=== PATIENT | male | born 1945 | race Caucasian/White ===

== ENCOUNTER → 2017-09-15 16:33 | Outpatient (CLI) | payer MEDICARE, OTHER, SELFPAY ==
[2017-09-15 19:13] LABS: M R Staph aureus DNA By PCR Negative (Negative); Probe Check PASS; Specimen Processing Control PASS; Staph aureus DNA By PCR NEGATIVE (Negative)
== END ==
PROVIDERS: Family Provider Family Medicine Geriatric Medicine; PCP Family Medicine Geriatric Medicine; Visit Provider Family Medicine Geriatric Medicine
DX: A41.02 Sepsis due to Methicillin resistant Staphylococcus aureus (principal)
CPT/HCPCS: 87070; 87077; 87186; 87205; 87640

== ENCOUNTER → 2017-10-02 15:47 | Outpatient (CLI) | payer MEDICARE, OTHER, SELFPAY ==
--- NOTE | 2017-10-02 16:36 | CT_ITS ---
STUDY: CT ABDOMEN AND PELVIS WITH CONTRAST REASON FOR EXAM: Male, 72 years old. Upper abdominal pain. RADIATION DOSAGE (If Supplied By Facility): CTDIvol = ( 8.26 ) mGy, DLP = ( 617.80 ) mGycm TECHNIQUE: Transaxial images were obtained from the dome of the diaphragm to the symphysis pubis with oral contrast. 100ML ml of Isovue 300 contrast was administered. Sagittal and coronal images were reconstructed. Individualized dose optimization techniques were used for this CT. COMPARISON: 07/29/2006. FINDINGS: The visualized lung bases are unremarkable. The visualized portions of the heart are within normal limits. Normal liver. Normal gallbladder and extrahepatic biliary system. Normal spleen. Normal pancreas. Normal bilateral adrenal glands. Normal right kidney. Normal left kidney. Normal visualized stomach. Normal small intestine. Marked fecal retention throughout the colon. The appendix is visualized and appears normal. There is a 4.3 cm infrarenal abdominal aortic aneurysm. There are calcified tortuous and ectatic common iliac arteries. Normal inferior vena cava. Normal retroperitoneum. Evaluation of the pelvis is limited by metal artifact from right hip arthroplasty. Bladder has a normal contour. There appears to be a 1.9 cm hemispheric soft tissue mass along the right lateral wall. See axial image 83. This was not definitely present previously. Cystoscopy recommended. Normal abdominal wall. Normal osseous structures. CT/Abdomen/Pelvis WITH Contrast IMPRESSION: 4.3 cm infrarenal abdominal aortic aneurysm. Possible 1.9 cm soft tissue mass along the right lateral wall of the bladder. Cystoscopy recommended. Electronically Signed: Noah Cole MD at 20:13 EDT , Service support ,
[2017-10-02 16:37] LABS: Absolute Neutrophil Count 2.4 X10^3/uL (2.0-7.7); Basophil# 0.04 X10^3/uL; Basophil% 0.9 % (0-1); Eosinophil# 0.07 X10^3/uL; Eosinophils% 1.6 % (0-5); Hematocrit 38.9 % (40-54); Hemoglobin 13.3 g/dl (13.0-16.5); Mean Corp Hgb Conc 34.2 g/gl (32-36); Mean Corpuscular Volume 93.7 fL (80-94); Mean Platelet Vol. 9.2 fl (6.2-12.0); Monocyte% 11.5 % (0-10); Neutrophil # 2.41 X10^3/uL (2.7-7.7); Neutrophil % 55.8 % (47-70); Platelet Count 256 K/mm3 (150-450); RBC Distribution Width CV 12.4 % (11.6-14.6); RBC Distribution Width SD 41.4 fl (35.1-43.9); Red Blood Count 4.15 M/mm3 (4.6-6.2); White Blood Count 4.3 K/mm3 (4.4-11.0)
[2017-10-02 16:57] LABS: AST(SGOT) 17 U/L (15-37); Alanine Aminotransfer ALT/SGPT 21 U/L (16-61); Albumin, Serum 3.6 g/dL (3.2-5.0); Alkaline Phosphatase 90 U/L (45-117); Amylase 61 U/L (25-115); Anion Gap 6 (5-15); BUN 18 mg/dL (7-18); BUN/Creat Ratio 24.7 RATIO (10-20); Calcium,Total 9.3 mg/dL (8.5-10.1); Chloride 105 mmol/L (98-107); Creatinine, Serum 0.73 mg/dL (0.70-1.30); EST Glomerular Filtration Rate 112 mL/min (>60); Est Glom Filt Rate - Afr Amer 135 mL/min (>60); Globulin 3.5 g/dL (2.2-4.2); Glucose 64 mg/dL (74-106); Lipase 111 U/L (73-393); Protein, Total 7.1 g/dL (6.4-8.2); Sodium Level 139 mmol/L (136-145)
[2017-10-02 16:58] LABS: POSITIVE COUNT NO; POSITIVE DIFFERENTIAL NO; POSITIVE MORPHOLOGY NO
--- NOTE | 2017-10-02 17:19 | US_ITS ---
STUDY: ABDOMINAL ULTRASOUND - RIGHT UPPER QUADRANT REASON FOR VISIT: Male, 72 years old. Abdominal pain TECHNIQUE: Ultrasound evaluation of the right upper quadrant was performed with real-time and static cote-scale imaging. TECHNICAL QUALITY: Adequate. COMPARISON: 02/15/2011. FINDINGS: Liver: The liver measures 14.4 cm. There is normal echogenicity of the liver. The bile ducts are within normal limits. There is hepatic color flow. The direction of portal flow is hepatopetal. There is no demonstrated mass lesion. Gallbladder: Normal distended gallbladder. The gallbladder wall measures 2 mm. There is a negative sonographic Fitch's sign. There is no pericholecystic fluid. There are no gallstones. There is a small 3 mm polyp. Common Bile Duct (C.B.D.): The common bile duct measures 6 mm. Pancreas: Normal size of the head, body and tail of the pancreas. There is normal echogenicity of the pancreas. There is no demonstrated pancreatic mass or cyst. Right Kidney: Normal size of the right kidney. The right kidney measures 9.2 cm. Normal renal cortex. The right cortex measures 1.4 cm. There is no demonstrated renal mass or cyst. There is no right hydronephrosis. US/Abdomen Limited IMPRESSION: Small gallbladder polyp, stable since 2010. No other abnormalities. Electronically Signed: Noah Cole MD at 19:12 EDT , Service support ,
== END ==
PROVIDERS: Family Provider Family Medicine Geriatric Medicine; PCP Family Medicine Geriatric Medicine; Visit Provider Family Medicine Geriatric Medicine
DX: K82.4 Cholesterolosis of gallbladder (principal); I71.4 Abdominal aortic aneurysm, without rupture
CPT/HCPCS: 36415; 74177; 76705; 80053; 82150; 83690; 85025; Q9967; A4216

== ENCOUNTER → 2017-10-30 15:40 | Outpatient (CLI) | payer MEDICARE, OTHER, SELFPAY ==
[2017-10-30 16:57] LABS: PSA,Total- Diagnostic 0.24 ng/mL (0.0-4.0)
== END ==
PROVIDERS: Family Provider Family Medicine Geriatric Medicine; PCP Family Medicine Geriatric Medicine; Visit Provider Urology
DX: N40.2 Nodular prostate without lower urinary tract symptoms (principal)
CPT/HCPCS: 36415; 84153

== ENCOUNTER → 2017-12-01 10:05 | Outpatient (CLI) | payer MEDICARE, OTHER, SELFPAY ==
[2017-12-01 12:44] LABS: Absolute Lymphocyte Count 1.03 X10^3/ul (0.83-4.51); Absolute Neutrophil Count 2.5 X10^3/uL (2.0-7.7); Basophil# 0.06 X10^3/uL; Basophil% 1.4 % (0-1); Eosinophil# 0.07 X10^3/uL; Eosinophils% 1.7 % (0-5); Hematocrit 40.6 % (40-54); Hemoglobin 13.8 g/dl (13.0-16.5); Lymphocyte # 1.03 X10^3/ul (4.0); Lymphocyte % 24.5 % (19-41); Mean Corpuscular Hgb 32.1 pg (27.0-32.0); Mean Corpuscular Volume 94.4 fL (80-94); Mean Platelet Vol. 9.4 fl (6.2-12.0); Monocyte# 0.51 X10^3/uL; Monocyte% 12.1 % (0-10); Neutrophil # 2.53 X10^3/uL (2.7-7.7); Neutrophil % 60.3 % (47-70); Platelet Count 266 K/mm3 (150-450); RBC Distribution Width CV 12.8 % (11.6-14.6); RBC Distribution Width SD 43.2 fl (35.1-43.9); White Blood Count 4.2 K/mm3 (4.4-11.0)
[2017-12-01 12:51] LABS: AST(SGOT) 23 U/L (15-37); Alanine Aminotransfer ALT/SGPT 26 U/L (16-61); Albumin, Serum 3.6 g/dL (3.2-5.0); Alkaline Phosphatase 88 U/L (45-117); Anion Gap 7 (5-15); BUN 12 mg/dL (7-18); BUN/Creat Ratio 16.4 RATIO (10-20); Calcium,Total 8.6 mg/dL (8.5-10.1); Chloride 100 mmol/L (98-107); Creatinine, Serum 0.73 mg/dL (0.70-1.30); EST Glomerular Filtration Rate 111 mL/min (>60); Est Glom Filt Rate - Afr Amer 135 mL/min (>60); Globulin 3.5 g/dL (2.2-4.2); Glucose 86 mg/dL (74-106); Potassium 4.6 mmol/L (3.5-5.1); Protein, Total 7.1 g/dL (6.4-8.2); Sodium Level 136 mmol/L (136-145); Thyroid Stim Hormone (TSH) 1.24 uIU/mL (0.358-3.74); Vitamin D,25 Hydroxy 26.9 ng/mL (29.95-100.01)
[2017-12-01 12:53] LABS: POSITIVE COUNT NO; POSITIVE DIFFERENTIAL NO; POSITIVE MORPHOLOGY NO
== END ==
PROVIDERS: Family Provider Family Medicine Geriatric Medicine; PCP Family Medicine Geriatric Medicine; Visit Provider Family Medicine Geriatric Medicine
DX: E55.9 Vitamin D deficiency, unspecified (principal); I10 Essential (primary) hypertension
CPT/HCPCS: 36415; 80053; 82306; 84443; 85025

== ENCOUNTER → 2017-12-12 16:33 | Outpatient (CLI) | payer MEDICARE, OTHER, SELFPAY ==
--- NOTE | 2017-12-12 16:35 | CT_ITS ---
STUDY: CTA CHEST REASON FOR EXAM: Male, 72 years old. ASCENDING ABDOMINAL AORTIC ANEURYSM RADIATION DOSAGE (If Supplied By Facility): CTDIvol = ( 13.41 ) mGy, DLP = ( 375.75 ) mGycm TECHNIQUE: The examination was performed with the intravenous administration of 100 ml of Isovue 300 contrast material. Post-processing of the angiographic images was performed, with multiplanar reformation and 3D reconstruction. Individualized dose optimization techniques were used for this CT. COMPARISON: 17 FINDINGS: There is no pneumothorax. The lungs are normal. There is no demonstrated pleural abnormality. There are calcifications of the coronary arteries. 46 cm aneurysmal dilation of the ascending thoracic aorta. Normal mediastinum. Normal hilar regions. Normal pulmonary arteries. There is atherosclerotic calcification of the aortic arch with tortuosity and elongation of the aortic arch and descending thoracic aorta. There are multi-level degenerative changes of the thoracic spine. There is no demonstrated abnormality of the visualized upper abdomen. CT/CTA Chest W/WO Contrast IMPRESSION: 46 cm aneurysmal dilation of the ascending thoracic aorta. No demonstrated pulmonary embolism or arterial dissection. Electronically Signed: Ezra Brush MD at 23:37 EDT , Service support ,
== END ==
PROVIDERS: Family Provider Family Medicine Geriatric Medicine; PCP Family Medicine Geriatric Medicine; Visit Provider Family Medicine Geriatric Medicine
DX: I71.4 Abdominal aortic aneurysm, without rupture (principal)
CPT/HCPCS: 71275; Q9967

== ENCOUNTER 2018-08-30 16:38 | Observation (INO) | payer MEDICARE, OTHER, SELFPAY ==
[2018-08-30] VITALS (9 sets, daily range): BP systolic 101–141; BP diastolic 57–74; PULSE 52–72; RESP 14–18; TEMP 36.6–36.9; O2SAT 94–99; BMI 23.3; BMI 23.5
--- NOTE | 2018-08-30 17:10 | EKG12_ITS ---
Test Reason : CP Blood Pressure : / mmHG Vent. Rate : 059 BPM Atrial Rate : 059 BPM P-R Int : 152 ms QRS Dur : 096 ms QT Int : 430 ms P-R-T Axes : 064 -41 060 degrees QTc Int : 425 ms Sinus bradycardia Left axis deviation Low Voltage QRS (Limb Leads) Poor R-Wave Progression Abnormal ECG Confirmed by TOY WILDER, VOLODYMYR ([id number]), web content editor KEL TEE ([id number]) on 09/02/2018 1:42:33 PM Referred By: Barak Troncoso Confirmed By:VOLODYMYR YEAGER MD
--- NOTE | 2018-08-30 17:10 | CT_ITS ---
STUDY: CTA CHEST REASON FOR EXAM: Male, 73 years old. Chest pain RADIATION DOSAGE (If Supplied By Facility): CTDIvol = ( 9.27 ) mGy, DLP = ( 282.58 ) mGycm TECHNIQUE: The examination was performed with the intravenous administration of Isovue 370 100 IV. Post-processing of the angiographic images was performed, with multiplanar reformation and 3D reconstruction. Individualized dose optimization techniques were used for this CT. COMPARISON: CTA 12/12/2017 FINDINGS: Normal enhancement of the main pulmonary artery and right and left pulmonary arteries. Normal enhancement of the bilateral peripheral pulmonary arteries. There is no demonstrated pulmonary embolism. There is stable mild aneurysmal dilatation ascending thoracic aorta maximum AP diameter 4.6 cm maximum mediolateral diameter 4.6 cm There is no demonstrated aortic dissection. Normal heart and pericardium. Normal mediastinum. Normal hilar regions. Normal visualized trachea and bronchi. The lungs are well expanded. There is right lower lobe groundglass opacity. Normal pleura. Normal chest wall structures. Normal osseous structures. The prior infrarenal abdominal aortic aneurysm is incompletely included on the [id number]. There is aneurysmal dilatation of the right axillary, distal subclavian artery incompletely included on [id number] with atherosclerotic narrowing which be further evaluated with ultrasound. The aneurysm measures 1.8 cm in mediolateral diameter CT/CTA Chest W/WO Contrast IMPRESSION: No CTA evidence for pulmonary emboli or aortic dissection Distal arterial right subclavian, axillary aneurysm, and atherosclerotic narrowing which can be further evaluated with ultrasound Right lower lobe groundglass opacity likely infectious/inflammatory stable mild aneurysmal dilatation ascending thoracic aorta maximum AP diameter 4.6 cm maximum mediolateral diameter 4.6 cm Infrarenal abdominal aortic aneurysm incompletely included on the field of view which should be further evaluated for stability with ultrasound or CT Electronically Signed: Arcenio Shen, at 20:39 EDT Tel , Service support ,
--- NOTE | 2018-08-30 17:15 | RAD_ITS ---
STUDY: X-RAY CHEST REASON FOR EXAM: Male, 73 years old. Chest pain, nausea short of breath TECHNIQUE: Portable chest COMPARISON: 12/10/2014. FINDINGS: The lungs are clear and expanded. There is no demonstrated pleural abnormality. Normal size heart. Normal mediastinum and alfredo. Normal visualized pulmonary arteries. Normal visualized aortic arch and descending thoracic aorta. Normal visualized thoracic spine. Normal visualized ribs, clavicles, and shoulders. There is no demonstrated abnormality of the visualized soft tissue structures of the upper abdomen. RAD/Chest 1 View (Portable) IMPRESSION: Normal x-ray examination of the chest. Electronically Signed: Arcenio Shen, at 19:22 EDT Tel , Service support ,
[2018-08-30] MEDS: Morphine 4 MG/ML Syringe IV (17:16)
[2018-08-30] MEDS: Ondansetron 4 MG/2 ML Vial IV (17:16)
[2018-08-30] MEDS: 0.9% Normal Saline 1,000 ML 150 ML IV ×2 (17:16→22:46)
[2018-08-30] MEDS: Albuterol 2.5 MG/3 ML VIAL.NEB. INHALATION (17:19)
[2018-08-30 17:22] LABS: Absolute Lymphocyte Count 1.67 X10^3/ul (0.83-4.51); Absolute Neutrophil Count 2.9 X10^3/uL (2.0-7.7); Basophil# 0.06 X10^3/uL; Basophil% 1.2 % (0-1); Eosinophil# 0.11 X10^3/uL; Eosinophils% 2.1 % (0-5); Hematocrit 38.9 % (40-54); Hemoglobin 13.1 g/dl (13.0-16.5); Lymphocyte # 1.67 X10^3/ul (4.0); Lymphocyte % 32.4 % (19-41); Mean Corp Hgb Conc 33.7 g/gl (32-36); Mean Corpuscular Hgb 31.5 pg (27.0-32.0); Mean Corpuscular Volume 93.5 fL (80-94); Mean Platelet Vol. 9.2 fl (6.2-12.0); Monocyte# 0.42 X10^3/uL; Monocyte% 8.1 % (0-10); Neutrophil # 2.89 X10^3/uL (2.7-7.7); Platelet Count 225 K/mm3 (150-450); RBC Distribution Width CV 13.4 % (11.6-14.6); RBC Distribution Width SD 45.8 fl (35.1-43.9); Red Blood Count 4.16 M/mm3 (4.6-6.2); White Blood Count 5.2 K/mm3 (4.4-11.0)
[2018-08-30 17:30] LABS: POSITIVE COUNT NO; POSITIVE DIFFERENTIAL NO; POSITIVE MORPHOLOGY NO
[2018-08-30 17:37] LABS: Anion Gap 7 (5-15); BUN 22 mg/dL (7-18); BUN/Creat Ratio 29.6 RATIO (10-20); Calcium,Total 8.9 mg/dL (8.5-10.1); Chloride 104 mmol/L (98-107); Creatinine, Serum 0.74 mg/dL (0.70-1.30); EST Glomerular Filtration Rate 109 mL/min (>60); Est Glom Filt Rate - Afr Amer 132 mL/min (>60); Estimated Creatinine Clearance 60.59 ml/min; Glucose 88 mg/dL (74-106); Sodium Level 139 mmol/L (136-145)
--- NOTE | 2018-08-30 20:57 | ED.DCSUM_ITS ---
- ER Visit Summary Date of Service: 08/30/18 Chief Complaint: Chest pain History of Present Illness: The patient is a 73 M with a 1 hour history of chest pain. Patient states the pain started as he was climbing the basement steps. He describes an aching sensation in the midportion of his chest. He waited for approximately 20 minutes and then called family when the pain did not subside. He denies shortness of breath or diaphoresis. Past history is significant for COPD, hypertension, AAA, Wernicke-Korsakoff. Physical Examination: Vital signs are unremarkable. Patient sitting upright in bed no acute distress. Head neck examination is unremarkable. It is slightly bradycardic. Lungs sounds are with slight wheezes at the left base. Abdomen is soft and nontender. Test Results: EKG is sinus at 59 with no acute ischemia. CBC and chemistry studies normal. Troponin less than 0.015. Portable chest x-ray is unremarkable. CTA of the chest was obtained secondary to the patient's history of AAA. There is no PE or dissection. There is evidence of right lower lobe groundglass opacity which may be infectious or inflammatory. There is a stable mild aneurysmal dilatation of the ascending thoracic aorta. There is an infrarenal aortic aneurysm noted just off the lower portion of the images. Emergency Department Course and Treatment: Patient was given 1 nitro with squad with no change. He does have an allergy to aspirin where he describes his eyes swelling shut. He is given albuterol treatment here along with a dose of IV morphine. On repeat evaluation pain is improved. Patient symptoms are certainly concerning. I recommended hospitalization overnight for cycling of enzymes. Hospitalist is on page. Treatment Plan: [] Disposition: Admit Impression: Chest pain This note was generated with [employer] dictation software. It may contain incorrect words, spelling, and punctuation that were not noted in review of the chart prior to signing ED Disposition - Plan for ED Patient: Referrals: Gardenia Braun MD [Primary Care Provider] -
--- NOTE | 2018-08-30 21:46 | EKG12_ITS ---
Test Reason : CP ADMIT Blood Pressure : / mmHG Vent. Rate : 052 BPM Atrial Rate : 052 BPM P-R Int : 150 ms QRS Dur : 094 ms QT Int : 452 ms P-R-T Axes : 044 -24 035 degrees QTc Int : 420 ms Sinus bradycardia with Premature atrial complexes with Aberrant conduction Otherwise normal ECG When compared with ECG of 30-AUG-2018 16:57, MANUAL COMPARISON REQUIRED, DATA IS UNCONFIRMED Confirmed by MARILUZ WILDER, EDWIN ([id number]), editor in chief newspaper KEL TEE ([id number]) on 09/01/2018 1:10:39 PM Referred By: Barak Troncoso Confirmed By:EDWIN MCGRAW MD
--- NOTE | 2018-08-30 22:38 | HP.PCM_ITS ---
Problem List (1) Chest pain Status: Acute (2) AAA (abdominal aortic aneurysm) without rupture Status: Chronic (3) COPD (chronic obstructive pulmonary disease) Status: Chronic (4) HTN (hypertension) Status: Chronic (5) Major depression Status: Chronic History of Present Illness Date of Admission: 08/30/18 Chief Complaint: chest pain The patient is a 73 year old M with a previous history of alcoholism; tobacco abuse; hypertension; COPD; aortic aneurysm who had excruciating substernal sharp chest pain while walking down his stairs. His chest pain persisted for about 8- 10 minutes for which reason he came to the emergency department. His chest pain radiated to in between his shoulder blades. Patient is allergic to aspirin. He has swelling of the eyes with aspirin. Patient received sublingual nitro by the paramedics which helped improved his pain. Also he received morphine at the emergency department which helped improve his pain. Patient denied any aggravating factor. He denied diaphoresis, nausea or vomiting. Also he denies any shortness of breath with the chest pain. 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, mood swings, lack of insight ataxia of gait confabulation Major depression (Chronic) Alcoholism (Chronic) Allergies aspirin Allergy (Verified 08/30/18 16:42) Swelling latex Allergy (Verified 08/30/18 16:42) Rash Home Medications: Ambulatory Orders Medication Instructions Recorded buPROPion XL [Wellbutrin Xl] 150 mg PO DAILY 11/25/14 Nifedipine [Nifedipine ER] 60 mg PO DAILY #30 tablet.er 11/29/14 Ramipril [Altace] 20 mg PO DAILY #30 capsule 11/29/14 Thiamine Hydrochloride [Vitamin B1] 100 mg PO DAILY #30 tablet 11/29/14 Albuterol IH (ProAir) [Proair Hfa] 2 puff INHALATION PRN PRN 08/30/18 Budesonide Inhaler 90 mcg 1 puff INHALATION BID 08/30/18 [Pulmicort Flexhaler 90 mcg] Citalopram [Celexa] 20 mg PO DAILY 08/30/18 Folic Acid 1 mg PO DAILY 08/30/18 Multivitamin,Therapeutic [Therems] 1 tab PO DAILY 08/30/18 Pravastatin Sodium 40 mg PO QHS 08/30/18 Ranitidine [Zantac] 150 mg PO BID 08/30/18 Surgical History: total hip arthroplasty - R, - - L olecranon bursa Lives: Spouse/ Significant Other Smoking Status: Current every day smoker Tobacco Use: Cigarettes Alcohol: Sober - *Family History Maternal History Items: Dementia, Stroke Paternal History Items: COPD Review of Systems Constitutional: Denies: Chills, Fever, Weight Change HEENT: Denies: Head Aches, Sinus Congestion, Sinus Drainage Cardiovascular: Reports: Chest Pain. Denies: Palpitations Respiratory: Denies: Cough, Shortness of breath at rest, Sputum production Gastrointestinal: Denies: Abdominal Pain, Nausea, Vomiting Genitourinary: Denies: Dysuria Musculoskeletal: Reports: Back Pain. Denies: Joint Pain, Joint Tenderness Skin: Denies: Rash, Wounds Neurological: Denies: Numbness, Tingling, Focal weakness Psychiatric: Denies: Anxiety, Depression, Homicidal Ideations, Suicidal Ideations Hematologic/ Lymphatic: Denies: Easy Bruising, Easy Bleeding VTE Information - Inpt Only VTE Present on Admission: No VTE Mechan Device Prophylaxis: None VTE Pharm Prophylaxis ordered?: Yes Patient Problems: Active and Suspected Problems Chest pain (Acute) - Physical Exam General: Alert, Oriented x3, Cooperative HEENT: Atraumatic, PERRLA, EOMI, Normocephalic Neck: Supple, No JVD, Negative Carotid Bruits Lungs: Clear to auscultation, Normal air movement Cardiovascular: Regular rate, No murmurs Abdomen: Bowel Sounds Present, Soft, Non Tender Extremities: No edema, Capillary Refill Less than 3 Seconds Skin: No rashes, No breakdown Musculoskeletal: No Tenderness to Palpation of Joints or Extremities Neurological: Neuro grossly intact Psych/Mental Status: Normal Affect, Appropriate Vital Signs Temp Pulse Resp BP Pulse Ox 97.8 F 72 18 141/64 H 96 08/30/18 22:13 08/30/18 22:13 08/30/18 22:13 08/30/18 22:13 08/30/18 22:13 Oxygen Delivery Method Room Air Weight: 67.1 kg Body Mass Index (BMI) 23.5 Laboratory Tests Past 24 Hrs 08/30/18 08/30/18 08/30/18 16:45 16:45 22:00 WBC 5.2 RBC 4.16 L Hgb 13.1 Hct 38.9 L MCV 93.5 MCH 31.5 MCHC 33.7 RDW 13.4 RDW Differential 45.8 H Plt Count 225 MPV 9.2 Immature Gran % (Auto) 0.200 Neut % (Auto) 56.0 Lymph % (Auto) 32.4 [place] % (Auto) 8.1 Eos % (Auto) 2.1 Baso % (Auto) 1.2 H Absolute Neuts (auto) 2.9 Absolute Lymphs (auto) 1.67 Total Counted Not Reportable Sodium 139 Potassium 4.0 Chloride 104 Carbon Dioxide 28.0 Anion Gap 7 BUN 22 H Creatinine 0.74 Estim Creat Clear Calc 60.59 Est GFR (MDRD) Af Amer 132 Est GFR (MDRD) Non-Af 109 BUN/Creatinine Ratio 29.6 H Glucose 88 Calcium 8.9 Troponin I < 0.015 Pending Assessment/Plan All Active Problems Chest pain (Acute) The patient is a 73 year old M with a previous history of alcoholism; tobacco abuse; hypertension; COPD; aortic aneurysm who had excruciating substernal sharp chest pain while walking down his stairs. Chest pain Admit to a monitored bed on PCU CXR independently reviewed confirms hyperinflation without any acute cardiopulmonary process. EKG independently reviewed confirms sinus bradycardia with a rate of 59; and left axis deviation. There were no ST or T wave of normalities. Chest CTA with or without contrast showed no evidence of pulmonary embolism or aortic disease. Patient had mild aneurysmal dilatation of the ascending thoracic aorta with maximum AP diameter of 4.6 maximum mediolateral diameter 4.6 cm. Also patient had infrarenal renal abdominal aortic aneurysm. Patient is allergic to aspirin so we will not give any aspirin at this time. Morphine as needed for pain We will check lipid panel. Initial cardiac enzymes was unremarkable. Serial cardiac enzymes Stat EKG as needed for chest pain Chemical stress test in the AM if the cardiac enzymes are negative. Patient reported that because of his age he has some imbalance and is unsure whether he can around the treadmill. Ascending thoracic aortic aneurysm. Patient to follow-up longitudinally outpatient. Infrarenal abdominal aortic aneurysm Patient to follow-up outpatient longitudinally Tobacco abuse Counseled Patient declined nicotine patch. History of Alcohol abuse Patient reported that now he is sober. Counselled DVT prophylaxis Subcutaneous Lovenox ordered.. Code Visit OBSV E&M: 17519 Initial observation care L3
[2018-08-30] MEDS: 0.9% NaCl Peripheral Flush Adult/Peds IV (22:48)
[2018-08-31] VITALS (7 sets, daily range): BP systolic 116–152; BP diastolic 59; PULSE 53–69; RESP 16–18; TEMP 36.6–37.1; O2SAT 93–98
--- NOTE | 2018-08-31 04:47 | NURSING ---
RN CAME INTO ROOM, PATIENT COMPLAINING OF SAME CHEST PAIN HAD YESTERDAY, RATING AN 8/10. CALLED FOR EKG
[2018-08-31] MEDS: 0.9% Normal Saline 1,000 ML 150 ML IV (04:49)
[2018-08-31] MEDS: Morphine 2 MG/ML Syringe IV (05:00)
[2018-08-31] MEDS: Ramipril 10 MG Capsule 20 MG PO (05:00)
--- NOTE | 2018-08-31 05:00 | EKG12_ITS ---
Test Reason : CP Blood Pressure : / mmHG Vent. Rate : 054 BPM Atrial Rate : 054 BPM P-R Int : 154 ms QRS Dur : 094 ms QT Int : 428 ms P-R-T Axes : 067 -45 055 degrees QTc Int : 405 ms Sinus bradycardia Left anterior fascicular block Abnormal ECG When compared with ECG of 30-AUG-2018 22:27, MANUAL COMPARISON REQUIRED, DATA IS UNCONFIRMED Confirmed by MARILUZ WILDER, EDWIN ([id number]), food editor KEL TEE ([id number]) on 09/01/2018 1:08:26 PM Referred By: Barak Troncoso Confirmed By:EDWIN MCGRAW MD
[2018-08-31] MEDS: 0.9% NaCl Peripheral Flush Adult/Peds IV (05:01)
--- NOTE | 2018-08-31 05:09 | NURSING ---
MD ON FLOOR, LOOKED AT EKG, INSTRUCTED TO DO MORPHINE EVERY TWO HOURS, NO NITRO AT THIS TIME AND CONTINUE ON WITH STRESS TEST. MORPHINE DID HELP WITH CP.
[2018-08-31 05:52] LABS: Hematocrit 40.8 % (40-54); Hemoglobin 13.1 g/dl (13.0-16.5); Mean Corp Hgb Conc 32.1 g/gl (32-36); Mean Corpuscular Hgb 31.1 pg (27.0-32.0); Mean Corpuscular Volume 96.9 fL (80-94); Mean Platelet Vol. 9.4 fl (6.2-12.0); Platelet Count 202 K/mm3 (150-450); RBC Distribution Width CV 13.4 % (11.6-14.6); RBC Distribution Width SD 46.7 fl (35.1-43.9); Red Blood Count 4.21 M/mm3 (4.6-6.2); White Blood Count 7.4 K/mm3 (4.4-11.0)
[2018-08-31 06:04] LABS: Prothrombin Time (Protime)PT. 13.3 SECONDS (11.7-14.9)
[2018-08-31 06:16] LABS: Scan Indicated on CBC? Y/N NO
[2018-08-31 06:22] LABS: Anion Gap 4 (5-15); BUN 19 mg/dL (7-18); BUN/Creat Ratio 26.3 RATIO (10-20); Calcium,Total 8.8 mg/dL (8.5-10.1); Chloride 107 mmol/L (98-107); Cholesterol 168 mg/dL (200); Creatinine, Serum 0.72 mg/dL (0.70-1.30); EST Glomerular Filtration Rate 113 mL/min (>60); Est Glom Filt Rate - Afr Amer 136 mL/min (>60); Estimated Creatinine Clearance 58.48 ml/min; Glucose 86 mg/dL (74-106); High Density Lipoprotein 50 mg/dL; Potassium 4.4 mmol/L (3.5-5.1); Sodium Level 141 mmol/L (136-145); Triglycerides 61 mg/dL; Very Low Density Lipoprotein 12 mg/dL (5-40)
[2018-08-31] MEDS: Budesonide Respules 0.5 MG/2 ML AMPUL.NEB. INHALATION (06:56)
--- NOTE | 2018-08-31 12:11 | STRESSREP ---
Stress Test Report Pharmacologic myocardial perfusion stress test. 73-year-old man with a history of atypical chest pain. Medications: Pulmicort Celexa Lovenox Pepcid Procardia. Stress protocol: Resting EKG demonstrates normal sinus rhythm with a rate of 60 bpm normal intervals are noted resting blood pressure 122/74 mmHg. 0.4 mg of regadenoson was infused per usual protocol followed by rapid intravenous saline flush injection continuous EKG monitoring was performed. The maximum heart rate was 105 bpm which was 71% maximum predicted heart rate the maximum workload was 1 metabolic equivalent. At rest there were no ST or T wave changes noted suggest abnormal flow reserve at peak infusion nonspecific ST-T wave changes were noted with no meet the criteria for ischemia. The resting blood pressure 122/74 with a final blood pressure 112/56. No clinical angina was noted. Myocardial perfusion protocol. 12.0 mCi of technetium 99m sestamibi was injected at rest. 0.4 mg of regadenoson was infused per usual protocol peak infusion 32.5 mCi of technetium 99m sestamibi was injected stress images were obtained stress and rest images were reconstructed and compared in the short axis vertical long horizontal long axis. Gated images were obtained. Perfusion SPECT analysis: Review of the stress images demonstrate normal cardiac silhouette size. The inferior wall demonstrates reduced perfusion on the stress and resting images to almost a similar extent. There is some GI and diaphragmatic attenuation and noted mild ischemia cannot be completely excluded. Next Gated SPECT analysis. The gated ejection fraction is noted to be 83%. Conclusion: Probably normal pharmacologic myocardial perfusion stress test. Preserved ejection fraction.
[2018-08-31] MEDS: Famotidine 20 MG Tablet PO (12:26)
[2018-08-31] MEDS: NIFEdipine 60 MG Tablet PO (12:26)
[2018-08-31] MEDS: Thiamine Hydrochloride 100 MG Tablet PO (12:26)
[2018-08-31] MEDS: buPROPion (XL) 150 MG TABLET.XL PO (12:26)
--- NOTE | 2018-08-31 12:49 | PCM.DC ---
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 May resume sexual activity in: 10-14 days Weight Bearing Status: Weight bearing as tolerated Call your doctor if you observe: Fever of 101 or Higher, Inability to urinate, Inability to have a bowel movement, Shortness of breath, Dizziness, Fainting spells, Chest pain, Uncontrolled pain Instructions: What Is Angina?, ED Chest Pain NonCardiac, ED Chest Pain Atypical Unkn Cause Additional Instructions: (1) Chest pain, Atypical, suspicious for Musculoskeletal Etiology especially given CT chest findings as noted. Dr. Gomez requested you initiate and continue plavix daily given your aspirin allergy. Please continue to take this medication. Plan follow-up evaluation in his office as noted. (2) Incidental Right Lower Lobe Opacity: CT chest w/ possible right lower lobe opacity, possible inflammatory versus infectious. This is less suspicious for bacterial infectious etiology given no WBC elevation or shift, no cough, no dyspnea. Please follow-up with your primary care physician for re-evaluation. If you have onset fever, productive cough please immediately contact PCU Charge nurse and relay this onset to have antibiotics initiated; however, current presentation less concerning for bacterial etiology. Requested respiratory viral panel prior to discharge. (3) Known AAA: CT scan with stable mild aneurysmal dilatation ascending thoracic aorta maximum AP diameter 4.6 cm maximum mediolateral diameter 4.6 cm). (4) Incidentally noted Distal arterial right subclavian, axillary aneurysm, and atherosclerotic narrowing: Please follow-up with your vascular surgeon within 2-[address] Ibarra for re-evaluation and further evaluation. (5) Incidental Infrarenal abdominal aortic aneurysm: Please follow-up with your vascular surgeon within 2-[address] Ibarra for re-evaluation and further evaluation. Pending Tests on Discharge: Respiratory viral panel requested and pending given inflammatory findings on CT of your chest. Allergies/Adverse Reactions: Allergies aspirin Allergy (Verified 08/30/18 16:42) Swelling latex Allergy (Verified 08/30/18 16:42) Rash Medications to take at Discharge buPROPion XL [Wellbutrin Xl] 150 mg PO DAILY 11/25/14 Nifedipine [Nifedipine ER] 60 mg PO DAILY #30 tablet.er 11/29/14 Ramipril [Altace] 20 mg PO DAILY #30 capsule 11/29/14 Thiamine Hydrochloride [Vitamin B1] 100 mg PO DAILY #30 tablet 11/29/14 Albuterol IH (ProAir) [Proair Hfa] 2 puff INHALATION PRN PRN 08/30/18 Budesonide Inhaler 90 mcg [Pulmicort Flexhaler 90 mcg] 1 puff INHALATION BID 08/30/18 Citalopram [Celexa] 20 mg PO DAILY 08/30/18 Folic Acid 1 mg PO DAILY 08/30/18 Multivitamin,Therapeutic [Therems] 1 tab PO DAILY 08/30/18 Pravastatin Sodium 40 mg PO QHS 08/30/18 Ranitidine [Zantac] 150 mg PO BID 08/30/18 Clopidogrel Bisulfate [Plavix] 75 mg PO DAILY #30 tablet 08/31/18 The following prescriptions were given: Clopidogrel Bisulfate [Plavix] 75 mg PO DAILY #30 tablet Primary Care Physician: Gardenia Braun MD [Primary Care Provider] - Please follow up with your Primary Care Physician in: Follow-up within 3-5 days. Test Results: Test results from this visit will be discussed in further detail at your follow-up appointment, if applicable. Please Follow Up With: Toño Gomez MD When: Follow-up within 1-2 weeks, may see ROLL REPAIRER. Call earlier if concerns. Please Follow Up With: Arcenio Ibarra MD - 2-4 weeks. When: F/U w/ your vascular surgeon or Dr. Ibarra for noted AAA, vascular findings. Proposed Discharge Date: 08/31/18
--- NOTE | 2018-08-31 12:56 | DCINST_ITS ---
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 May resume sexual activity in: 10-14 days Weight Bearing Status: Weight bearing as tolerated Call your doctor if you observe: Fever of 101 or Higher, Inability to urinate, Inability to have a bowel movement, Shortness of breath, Dizziness, Fainting spells, Chest pain, Uncontrolled pain Instructions: What Is Angina?, ED Chest Pain NonCardiac, ED Chest Pain Atypical Unkn Cause Additional Instructions: (1) Chest pain, Atypical, suspicious for Musculoskeletal Etiology especially given CT chest findings as noted. Dr. Gomez requested you initiate and continue plavix daily given your aspirin allergy. Please continue to take this medication. Plan follow-up evaluation in his office as noted. (2) Incidental Right Lower Lobe Opacity: CT chest w/ possible right lower lobe opacity, possible inflammatory versus infectious. This is less suspicious for bacterial infectious etiology given no WBC elevation or shift, no cough, no dyspnea. Please follow-up with your primary care physician for re- evaluation. If you have onset fever, productive cough please immediately contact PCU Charge nurse and relay this onset to have antibiotics initiated; however, current presentation less concerning for bacterial etiology. Requested respiratory viral panel prior to discharge. (3) Known AAA: CT scan with stable mild aneurysmal dilatation ascending thoracic aorta maximum AP diameter 4.6 cm maximum mediolateral diameter 4.6 cm). (4) Incidentally noted Distal arterial right subclavian, axillary aneurysm, and atherosclerotic narrowing: Please follow-up with your vascular surgeon within 2-[address] Ibarra for re- evaluation and further evaluation. (5) Incidental Infrarenal abdominal aortic aneurysm: Please follow-up with your vascular surgeon within 2-[address] Ibarra for re-evaluation and further evaluation. Pending Tests on Discharge: Respiratory viral panel requested and pending given inflammatory findings on CT of your chest. Allergies/Adverse Reactions: Allergies aspirin Allergy (Verified 08/30/18 16:42) Swelling latex Allergy (Verified 08/30/18 16:42) Rash Medications to take at Discharge buPROPion XL [Wellbutrin Xl] 150 mg PO DAILY 11/25/14 Nifedipine [Nifedipine ER] 60 mg PO DAILY #30 tablet.er 11/29/14 Ramipril [Altace] 20 mg PO DAILY #30 capsule 11/29/14 Thiamine Hydrochloride [Vitamin B1] 100 mg PO DAILY #30 tablet 11/29/14 Albuterol IH (ProAir) [Proair Hfa] 2 puff INHALATION PRN PRN 08/30/18 Budesonide Inhaler 90 mcg [Pulmicort Flexhaler 90 mcg] 1 puff INHALATION BID 08/30/18 Citalopram [Celexa] 20 mg PO DAILY 08/30/18 Folic Acid 1 mg PO DAILY 08/30/18 Multivitamin,Therapeutic [Therems] 1 tab PO DAILY 08/30/18 Pravastatin Sodium 40 mg PO QHS 08/30/18 Ranitidine [Zantac] 150 mg PO BID 08/30/18 Clopidogrel Bisulfate [Plavix] 75 mg PO DAILY #30 tablet 08/31/18 The following prescriptions were given: Clopidogrel Bisulfate [Plavix] 75 mg PO DAILY #30 tablet Primary Care Physician: Gardenia Braun MD [Primary Care Provider] - Please follow up with your Primary Care Physician in: Follow-up within 3-5 days. Test Results: Test results from this visit will be discussed in further detail at your follow- up appointment, if applicable. Please Follow Up With: Toño Gomez MD When: Follow-up within 1-2 weeks, may see VP RHEUMATOLOGY. Call earlier if concerns. Please Follow Up With: Arcenio Ibarra MD - 2-4 weeks. When: F/U w/ your vascular surgeon or Dr. Ibarra for noted AAA, vascular findings. Proposed Discharge Date: 08/31/18
--- NOTE | 2018-08-31 13:34 | PCM.DC.SUM ---
Discharge Date and Diagnosis - Problem List Patient Problems: Active and Suspected Problems Chest pain (Acute) Date of Admission: 08/30/18 Date of Discharge: 08/31/18 - Primary Discharge Diagnosis Active and Suspected Problems (1) Chest pain, Atypical, suspicious for Musculoskeletal Etiology (2) Incidental Right Lower Lobe Opacity, likely inflammatory, less suspicious for bacterial infectious etiology (No WBC elevation or shift, no cough, no dyspnea) (3) Hypertension (4) Hyperlipidemia (5) Depression (6) Chronic COPD (7) Known AAA (Stable mild aneurysmal dilatation ascending thoracic aorta maximum AP diameter 4.6 cm maximum mediolateral diameter 4.6 cm) (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 (9) Incidentally noted Distal arterial right subclavian, axillary aneurysm, and atherosclerotic narrowing (10) Incidental Infrarenal abdominal aortic aneurysm - Secondary Discharge Diagnosis Chronic Problems HTN (hypertension) (Chronic) COPD (chronic obstructive pulmonary disease) (Chronic) AAA (abdominal aortic aneurysm) without rupture (Chronic) 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, mood swings, lack of insight ataxia of gait confabulation Major depression (Chronic) Alcoholism (Chronic) Hospital Course and Treatment Imaging Results: 08/31/18 05:55 Nuclear Stress Test - Chemical [NM] AM (NON MEDS) Operations: None Procedures: EKG, Stress test Summary of Care Provided: The patient is a 73 y/o M w/ PMHx: Chronic COPD, HTN, HLD, Known AAA, History of EtOH Abuse w/ Wernicke-Korsakoff Syndrome, Former Tobacco use who presented to the [facility] ED on 08/30/18 with history of onset severe substernal sharp in nature chest discomfort initially rated 10 out of 10 while walking down the stairs, persisting for at least 8-10 minutes prompting presentation to the ED with noted radiation in between his shoulder blades with resolution of pain with sublingual nitroglycerin. He noted that chest discomfort had been worse with inspiratory increased effort. He denied any recent illnesses, URI symptoms, cough, congestion, dyspnea, wheezing. In the ED work-up included EKG sinus rhythm without evidence of acute ischemia, CXR without acute process, unremarkable CBC and chemistry, cardiac enzyme set x 1 normal. CTPA obtained per ED w/ no CT evidence for PE or aortic dissection, distal arterial right subclavian, axillary aneurysm and atherosclerotic narrowing, right lower lobe groundglass opacity possibly infectious versus inflammatory, stable mild aneurysmal dilation ascending thoracic aorta with a maximum AP diameter 4.6 cm, maximal mediolateral diameter 4.6 cm, infrarenal abdominal aortic aneurysm incompletely included on the field of view. The patient was admitted to PCU, maintained on cardiac telemetry, serial cardiac enzymes were obtained as well as serial EKGs which remained unremarkable. Patient underwent AM stress testing which was felt most likely to be negative for inducible ischemia. Discussed case with assistant manager and given most likely negative and patient resolution of symptoms, atypical nature as well recommendation for initiation of Plavix therapy given aspirin allergy with plan to follow-up outpatient in his office which was discussed with patient and amenable. FLP was obtained during admission and noted to be triglyceride 61, total cholesterol 168, LDL 106, VLDL 12, HDL 50 with continuation on patient home statin regimen. Patient was discharged to home in stable condition with recommendation for follow-up with primary care physician within 3-5 days as well as assistant manager within 2 weeks as well as follow-up with vascular surgery, Dr. Ibarra within 2-4 weeks to follow-up on noted CTPA vascular findings for further evaluation and continued follow-up. Patient administered oral Plavix dose and respiratory viral panel also obtained prior to discharge to home with prescription sent to his pharmacy for Plavix. DAY OF DISCHARGE PROGRESS NOTE: Subjective: Patient without acute event overnight per self and nursing report. Patient denies fever, chills, nausea, emesis, abdominal pain or dyspnea. Patient notes chest discomfort has improved and states that he did have worsened discomfort with increased respiratory effort and some positional changes. Patient agreeable to discharge to home following negative cardiac stress testing. Patient will be discharged with follow-up with primary care physician within 3-5 days in addition to follow-up with cardiology as well as vascular surgery. Objective: T 98.7, heart rate 69, BP 116/59, respiratory rate 16, 96% on room air. Physical Examination: General: awake, alert, oriented x 3 and cooperative, seated upright in the bed, NAD. Skin: normal color, turgor, no icterus, cyanosis. HEENT: AT/NC, EOMI, PERRLA, MMM. Lungs: CTA bilaterally, moderate effort, mild decrease BL bases, no rales, ronchi or wheezing; Heart: Regular rate and rhythm; no gallop, rub audible, no reproducible discomfort with palpation. Abdomen: soft, NTTP, ND, normal BS. Extremities: no cyanosis, clubbing, or edema. Neurological: patient awake, alert, oriented x 3; cognitive function appears intact upon questioning,; pupils equally reactive to light and accomodation; cranial nerves II-XII grossly normal, moving all 4 extremities, strength mildly globally decreased. Psychiatric: affect appears normal, no acute evidence of depressive or anxiety feelings. Assessment and Plan: Please see hospital summary above. Patient Problems: Active and Suspected Problems Chest pain (Acute) - Physical Exam Vital Signs Temp Pulse Resp BP Pulse Ox 98.7 F 65 16 116/59 L 96 08/31/18 10:10 08/31/18 11:10 08/31/18 10:10 08/31/18 10:10 08/31/18 10:10 Oxygen Delivery Method Room Air Weight: 147 lb 14.883 oz Body Mass Index (BMI) 23.5 Intake and Output for Last 24 Hours 08/29/18 08/30/18 08/31/18 23:59 23:59 23:59 Intake Total 903 / 903 Balance 903 / 903 Laboratory Tests Past 24 Hrs 08/30/18 08/30/18 08/30/18 16:45 16:45 22:00 WBC 5.2 RBC 4.16 L Hgb 13.1 Hct 38.9 L MCV 93.5 MCH 31.5 MCHC 33.7 RDW 13.4 RDW Differential 45.8 H Plt Count 225 MPV 9.2 Immature Gran % (Auto) 0.200 Neut % (Auto) 56.0 Lymph % (Auto) 32.4 [place] % (Auto) 8.1 Eos % (Auto) 2.1 Baso % (Auto) 1.2 H Absolute Neuts (auto) 2.9 Absolute Lymphs (auto) 1.67 Total Counted Not Reportable PT INR Sodium 139 Potassium 4.0 Chloride 104 Carbon Dioxide 28.0 Anion Gap 7 BUN 22 H Creatinine 0.74 Estim Creat Clear Calc 60.59 Est GFR (MDRD) Af Amer 132 Est GFR (MDRD) Non-Af 109 BUN/Creatinine Ratio 29.6 H Glucose 88 Calcium 8.9 Troponin I < 0.015 < 0.015 Triglycerides Cholesterol LDL Cholesterol VLDL Cholesterol HDL Cholesterol 08/31/18 08/31/18 08/31/18 00:56 05:10 05:10 WBC RBC Hgb Hct MCV MCH MCHC RDW RDW Differential Plt Count MPV Immature Gran % (Auto) Neut % (Auto) Lymph % (Auto) [place] % (Auto) Eos % (Auto) Baso % (Auto) Absolute Neuts (auto) Absolute Lymphs (auto) Total Counted PT 13.3 INR 1.0 Sodium 141 Potassium 4.4 Chloride 107 Carbon Dioxide 30.0 Anion Gap 4 L BUN 19 H Creatinine 0.72 Estim Creat Clear Calc 58.48 Est GFR (MDRD) Af Amer 136 Est GFR (MDRD) Non-Af 113 BUN/Creatinine Ratio 26.3 H Glucose 86 Calcium 8.8 Troponin I < 0.015 Triglycerides 61 Cholesterol 168 LDL Cholesterol 106 VLDL Cholesterol 12 HDL Cholesterol 50 08/31/18 05:10 WBC 7.4 RBC 4.21 L Hgb 13.1 Hct 40.8 MCV 96.9 H MCH 31.1 MCHC 32.1 RDW 13.4 RDW Differential 46.7 H Plt Count 202 MPV 9.4 Immature Gran % (Auto) Neut % (Auto) Lymph % (Auto) [place] % (Auto) Eos % (Auto) Baso % (Auto) Absolute Neuts (auto) Absolute Lymphs (auto) Total Counted PT INR Sodium Potassium Chloride Carbon Dioxide Anion Gap BUN Creatinine Estim Creat Clear Calc Est GFR (MDRD) Af Amer Est GFR (MDRD) Non-Af BUN/Creatinine Ratio Glucose Calcium Troponin I Triglycerides Cholesterol LDL Cholesterol VLDL Cholesterol HDL Cholesterol Discharge Activity: - - Advise mild to moderate exertion only until outpatient Cardiology evaluation. May resume sexual activity in: 10-14 days Weight Bearing Status: Weight bearing as tolerated Call your doctor if you observe: Fever of 101 or Higher, Inability to urinate, Inability to have a bowel movement, Shortness of breath, Dizziness, Fainting spells, Chest pain, Uncontrolled pain Home Medications: Medications to take at Discharge buPROPion XL [Wellbutrin Xl] 150 mg PO DAILY 11/25/14 Nifedipine [Nifedipine ER] 60 mg PO DAILY #30 tablet.er 11/29/14 Ramipril [Altace] 20 mg PO DAILY #30 capsule 11/29/14 Thiamine Hydrochloride [Vitamin B1] 100 mg PO DAILY #30 tablet 06/23/15 Albuterol IH (ProAir) [Proair Hfa] 2 puff INHALATION PRN PRN 08/30/18 Budesonide Inhaler 90 mcg [Pulmicort Flexhaler 90 mcg] 1 puff INHALATION BID 08/30/18 Citalopram [Celexa] 20 mg PO DAILY 08/30/18 Folic Acid 1 mg PO DAILY 08/30/18 Multivitamin,Therapeutic [Therems] 1 tab PO DAILY 08/30/18 Pravastatin Sodium 40 mg PO QHS 08/30/18 Ranitidine [Zantac] 150 mg PO BID 08/30/18 Clopidogrel Bisulfate [Plavix] 75 mg PO DAILY #30 tablet 08/31/18 Following Prescrptions Were Given to Patient: Clopidogrel Bisulfate [Plavix] 75 mg PO DAILY #30 tablet Primary Care Physician: Gardenia Braun MD [Primary Care Provider] - Please follow up with your Primary Care Physician in: Follow-up within 3-5 days. Please Follow Up With: Toño Gomez MD When: Follow-up within 1-2 weeks, may see PALLIATIVE CARE NURSE PRACTITIONER. Call earlier if concerns. Please Follow Up With: Arcenio Ibarra MD - 2-4 weeks. When: F/U w/ your vascular surgeon or Dr. Ibarra for noted AAA, vascular findings. Patient Instructions: What Is Angina?, ED Chest Pain NonCardiac, ED Chest Pain Atypical Unkn Cause Disposition: Home Minutes spent on discharge:: 35 Patient Condition:: Fair Medical Necessity - Tobacco Use Smoking Status: Current every day smoker Tobacco Use: Cigarettes Meaningful Use Info Meaningful Use Diagnoses (Choose all that apply): None applicable Code Visit OBSV E&M: 14949 Observation care discharge
[2018-08-31] MEDS: Clopidogrel Bisulfate 75 MG Tablet PO (14:34)
--- NOTE | 2018-08-31 15:29 | PCM.CONS.C ---
Reason for Consult Date of Consultation: 08/31/18 Reason for Consultation: Chest pain History of Present Illness: The patient is a 73 year old M with a previous history of alcoholism; tobacco abuse; hypertension; COPD; aortic aneurysm who had excruciating substernal sharp chest pain while walking down his stairs. His chest pain persisted for about 8-10 minutes for which reason he came to the emergency department. His chest pain radiated to in between his shoulder blades. Patient received sublingual nitro by the paramedics which helped improved his pain. Also he received morphine at the emergency department which helped improve his pain. Patient denied any aggravating factor. He denied diaphoresis, nausea or vomiting. Also he denies any shortness of breath with the chest pain. He was admitted to the telemetry unit he ruled out for myocardial infarction there were no EKG changes. He underwent a pharmacologic stress test which demonstrated probable inferior ischemia. Cardiology was called for further evaluation and management. On further questioning he said that it was more of a dull ache that he had experienced. Past Medical History Allergies/Adverse Reactions: Allergies aspirin Allergy (Verified 08/30/18 16:42) Swelling latex Allergy (Verified 08/30/18 16:42) Rash Home Medications: Ambulatory Orders Medication Instructions Recorded buPROPion XL [Wellbutrin Xl] 150 mg PO DAILY 11/25/14 Nifedipine [Nifedipine ER] 60 mg PO DAILY #30 tablet.er 11/29/14 Ramipril [Altace] 20 mg PO DAILY #30 capsule 11/29/14 Thiamine Hydrochloride [Vitamin B1] 100 mg PO DAILY #30 tablet 11/29/14 Albuterol IH (ProAir) [Proair Hfa] 2 puff INHALATION PRN PRN 08/30/18 Budesonide Inhaler 90 mcg 1 puff INHALATION BID 08/30/18 [Pulmicort Flexhaler 90 mcg] Citalopram [Celexa] 20 mg PO DAILY 08/30/18 Folic Acid 1 mg PO DAILY 08/30/18 Multivitamin,Therapeutic [Therems] 1 tab PO DAILY 08/30/18 Pravastatin Sodium 40 mg PO QHS 08/30/18 Ranitidine [Zantac] 150 mg PO BID 08/30/18 Clopidogrel Bisulfate [Plavix] 75 mg PO DAILY #30 tablet 08/31/18 Past Medical History (Chronic Problems): Chronic Problems HTN (hypertension) (Chronic) COPD (chronic obstructive pulmonary disease) (Chronic) AAA (abdominal aortic aneurysm) without rupture (Chronic) 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 Denies: Shortness of Breath, Orthopnea, PND, Peripheral Edema, Palpitations, Lightheadedness, Dizziness, Near Syncope, Syncope Respiratory: Denies: Cough, Sputum Production, Hemoptysis Gastrointestinal: Denies: Hematemesis, Hematochezia, Melena Genitourinary: Denies: Dysuria, Hematuria Muscoloskeletal: Reports: Myalgias Skin: Denies: Rash Neurological: Reports: Dizziness Psychiatric: Reports: Anxiety Endocrine: Reports: Unexplained Weight Loss Hematologic/ Lymphatic: Reports: Anemia Subjectve: Pleasant gentleman in no apparent distress Objective: Vital Signs Temp Pulse Resp BP Pulse Ox 98.7 F 65 16 116/59 L 96 08/31/18 10:10 08/31/18 11:10 08/31/18 10:10 08/31/18 10:10 08/31/18 10:10 Oxygen Delivery Method Room Air Weight: 147 lb 14.883 oz Body Mass Index (BMI) 23.5 Intake and Output for Last 24 Hours 08/29/18 08/30/18 08/31/18 23:59 23:59 23:59 Intake Total 903 / 903 Balance 903 / 903 General: Awake, Alert, Oriented x 3 HEENT: PERRL, EOMI, Sclera Non Icteric Neck: Supple, Good ROM, No Lymph Node Enlargement Lungs: Clear to auscultation Cardiovascular: Regular Rhythm, Normal S1, Normal S2, No Murmurs, No Rubs, No Gallops Vascular: No Carotid Bruits, Normal Femoral Pulses, Normal Radial Pulses, Normal Dorsalis Pedal Pulse, Normal Posterior Tibial Pulses Abdomen: Bowel Sounds Present, Soft, Non Tender, No HSM, No Organomegaly Extremities: No Cyanosis, No Clubbing, No edema Skin: No Rashes Lymphatic: No Lymph Node Enlargement Neurological: No Focal Motor or Sensory Deficit Psych/Mental Status: Appropriate 08/30/18 16:45: WBC 5.2, RBC 4.16 L, Hgb 13.1, Hct 38.9 L, MCV 93.5, MCH 31.5, MCHC 33.7, RDW 13.4, RDW Differential 45.8 H, Plt Count 225, MPV 9.2, Immature Gran % (Auto) 0.200, Neut % (Auto) 56.0, Lymph % (Auto) 32.4, [place] % (Auto) 8.1, Eos % (Auto) 2.1, Baso % (Auto) 1.2 H, Absolute Neuts (auto) 2.9, Total Counted Not Reportable 08/30/18 16:45: Sodium 139, Potassium 4.0, Chloride 104, Carbon Dioxide 28.0, Anion Gap 7, BUN 22 H, Creatinine 0.74, Est GFR (MDRD) Af Amer 132, Est GFR (MDRD) Non-Af 109, BUN/Creatinine Ratio 29.6 H, Glucose 88, Calcium 8.9, Troponin I < 0.015 08/30/18 22:00: Troponin I < 0.015 08/31/18 00:56: Troponin I < 0.015 08/31/18 05:10: PT 13.3, INR 1.0 08/31/18 05:10: Sodium 141, Potassium 4.4, Chloride 107, Carbon Dioxide 30.0, Anion Gap 4 L, BUN 19 H, Creatinine 0.72, Est GFR (MDRD) Af Amer 136, Est GFR (MDRD) Non-Af 113, BUN/Creatinine Ratio 26.3 H, Glucose 86, Calcium 8.8, Triglycerides 61, Cholesterol 168, LDL Cholesterol 106, VLDL Cholesterol 12, HDL Cholesterol 50 08/31/18 05:10: WBC 7.4, RBC 4.21 L, Hgb 13.1, Hct 40.8, MCV 96.9 H, MCH 31.1, MCHC 32.1, RDW 13.4, RDW Differential 46.7 H, Plt Count 202, MPV 9.4 Rhythm: EKG: ECHO: Stress Test: Cardiac Cath: PCI: CT Surgery: Holter monitor: EPS: PPM: CXR: Chest CT Scan: Assessment/Plan 1. Chest pain with abnormal stress test He presents with chest pain and is noted to have an abnormal stress test. My recommendation at this time with his history will be for him to pursue a cardiac catheterization. The risk benefits and alternatives have been explained to him and he understands and agrees to proceed this will be scheduled as an outpatient because he says that there is an urgent reason for him to go home. He will be started on clopidogrel Continue beta-lorna 2. Hypertension Good control on the current medical therapy no other major changes will be made 3. Hyperlipidemia Patient will continue with aggressive risk factor modification 4. Abdominal aortic aneurysm The above appears to be stable and measures 3.6 cm We will continue to keep blood pressure under good control The above has been discussed with the patient and his daughter and they understand and agree to proceed. Patient will be scheduled for cardiac catheterization September 11.
--- NOTE | 2018-08-31 15:41 | CON.PCM_ITS ---
Reason for Consult Date of Consultation: 08/31/18 Reason for Consultation: Chest pain History of Present Illness: The patient is a 73 year old M with a previous history of alcoholism; tobacco abuse; hypertension; COPD; aortic aneurysm who had excruciating substernal sharp chest pain while walking down his stairs. His chest pain persisted for about 8- 10 minutes for which reason he came to the emergency department. His chest pain radiated to in between his shoulder blades. Patient received sublingual nitro by the paramedics which helped improved his pain. Also he received morphine at the emergency department which helped improve his pain. Patient denied any aggravating factor. He denied diaphoresis, nausea or vomiting. Also he denies any shortness of breath with the chest pain. He was admitted to the telemetry unit he ruled out for myocardial infarction there were no EKG changes. He underwent a pharmacologic stress test which demonstrated probable inferior ischemia. Cardiology was called for further evaluation and management. On further questioning he said that it was more of a dull ache that he had experienced. Past Medical History Allergies/Adverse Reactions: Allergies aspirin Allergy (Verified 08/30/18 16:42) Swelling latex Allergy (Verified 08/30/18 16:42) Rash Home Medications: Ambulatory Orders Medication Instructions Recorded buPROPion XL [Wellbutrin Xl] 150 mg PO DAILY 11/25/14 Nifedipine [Nifedipine ER] 60 mg PO DAILY #30 tablet.er 11/29/14 Ramipril [Altace] 20 mg PO DAILY #30 capsule 11/29/14 Thiamine Hydrochloride [Vitamin B1] 100 mg PO DAILY #30 tablet 11/29/14 Albuterol IH (ProAir) [Proair Hfa] 2 puff INHALATION PRN PRN 08/30/18 Budesonide Inhaler 90 mcg 1 puff INHALATION BID 08/30/18 [Pulmicort Flexhaler 90 mcg] Citalopram [Celexa] 20 mg PO DAILY 08/30/18 Folic Acid 1 mg PO DAILY 08/30/18 Multivitamin,Therapeutic [Therems] 1 tab PO DAILY 08/30/18 Pravastatin Sodium 40 mg PO QHS 08/30/18 Ranitidine [Zantac] 150 mg PO BID 08/30/18 Clopidogrel Bisulfate [Plavix] 75 mg PO DAILY #30 tablet 08/31/18 Past Medical History (Chronic Problems): Chronic Problems HTN (hypertension) (Chronic) COPD (chronic obstructive pulmonary disease) (Chronic) AAA (abdominal aortic aneurysm) without rupture (Chronic) 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 Denies: Shortness of Breath, Orthopnea, PND, Peripheral Edema, Palpitations, Lighthe adedness, Dizziness, Near Syncope, Syncope Respiratory: Denies: Cough, Sputum Production, Hemoptysis Gastrointestinal: Denies: Hematemesis, Hematochezia, Melena Genitourinary: Denies: Dysuria, Hematuria Muscoloskeletal: Reports: Myalgias Skin: Denies: Rash Neurological: Reports: Dizziness Psychiatric: Reports: Anxiety Endocrine: Reports: Unexplained Weight Loss Hematologic/ Lymphatic: Reports: Anemia Subjectve: Pleasant gentleman in no apparent distress Objective: Vital Signs Temp Pulse Resp BP Pulse Ox 98.7 F 65 16 116/59 L 96 08/31/18 10:10 08/31/18 11:10 08/31/18 10:10 08/31/18 10:10 08/31/18 10:10 Oxygen Delivery Method Room Air Weight: 147 lb 14.883 oz Body Mass Index (BMI) 23.5 Intake and Output for Last 24 Hours 08/29/18 08/30/18 08/31/18 23:59 23:59 23:59 Intake Total 903 / 903 Balance 903 / 903 General: Awake, Alert, Oriented x 3 HEENT: PERRL, EOMI, Sclera Non Icteric Neck: Supple, Good ROM, No Lymph Node Enlargement Lungs: Clear to auscultation Cardiovascular: Regular Rhythm, Normal S1, Normal S2, No Murmurs, No Rubs, No Gallops Vascular: No Carotid Bruits, Normal Femoral Pulses, Normal Radial Pulses, Normal Dorsalis Pedal Pulse, Normal Posterior Tibial Pulses Abdomen: Bowel Sounds Present, Soft, Non Tender, No HSM, No Organomegaly Extremities: No Cyanosis, No Clubbing, No edema Skin: No Rashes Lymphatic: No Lymph Node Enlargement Neurological: No Focal Motor or Sensory Deficit Psych/Mental Status: Appropriate 08/30/18 16:45: WBC 5.2, RBC 4.16 L, Hgb 13.1, Hct 38.9 L, MCV 93.5, MCH 31.5, M CHC 33.7, RDW 13.4, RDW Differential 45.8 H, Plt Count 225, MPV 9.2, Immature Gran % (Auto) 0.200, Neut % (Auto) 56.0, Lymph % (Auto) 32.4, [place] % (Auto) 8.1, Eos % (Auto) 2.1, Baso % (Auto) 1.2 H, Absolute Neuts (auto) 2.9, Total Counted Not Reportable 08/30/18 16:45: Sodium 139, Potassium 4.0, Chloride 104, Carbon Dioxide 28.0, Anion Gap 7, BUN 22 H, Creatinine 0.74, Est GFR (MDRD) Af Amer 132, Est GFR (MDRD) Non-Af 109, BUN/Creatinine Ratio 29.6 H, Glucose 88, Calcium 8.9, Troponin I < 0.015 08/30/18 22:00: Troponin I < 0.015 08/31/18 00:56: Troponin I < 0.015 08/31/18 05:10: PT 13.3, INR 1.0 08/31/18 05:10: Sodium 141, Potassium 4.4, Chloride 107, Carbon Dioxide 30.0, Anion Gap 4 L, BUN 19 H, Creatinine 0.72, Est GFR (MDRD) Af Amer 136, Est GFR (MDRD) Non-Af 113, BUN/Creatinine Ratio 26.3 H, Glucose 86, Calcium 8.8, Triglycerides 61, Cholesterol 168, LDL Cholesterol 106, VLDL Cholesterol 12, HDL Cholesterol 50 08/31/18 05:10: WBC 7.4, RBC 4.21 L, Hgb 13.1, Hct 40.8, MCV 96.9 H, MCH 31.1, MCHC 32.1, RDW 13.4, RDW Differential 46.7 H, Plt Count 202, MPV 9.4 Rhythm: EKG: ECHO: Stress Test: Cardiac Cath: PCI: CT Surgery: Holter monitor: EPS: PPM: CXR: Chest CT Scan: Assessment/Plan 1. Chest pain with abnormal stress test * He presents with chest pain and is noted to have an abnormal stress test. My recommendation at this time with his history will be for him to pursue a cardiac catheterization. The risk benefits and alternatives have been explained to him and he understands and agrees to proceed this will be scheduled as an outpatient because he says that there is an urgent reason for him to go home. * He will be started on clopidogrel * Continue beta-lorna * 2. Hypertension * Good control on the current medical therapy no other major changes will be made * 3. Hyperlipidemia * Patient will continue with aggressive risk factor modification * 4. Abdominal aortic aneurysm * The above appears to be stable and measures 3.6 cm * We will continue to keep blood pressure under good control * * The above has been discussed with the patient and his daughter and they understand and agree to proceed. Patient will be scheduled for cardiac catheterization September 11.
== END 2018-08-31 13:29 | disposition home or self-care (01) ==
LOC: ED 21:16 → PCU 21:22
PROVIDERS: Admitting Provider Hospitalist; Emergency Provider Emergency Medicine; Family Provider Internal Medicine; PCP Internal Medicine; Referring Provider Hospitalist; Visit Provider Family Medicine
DX: R07.89 Other chest pain (principal); J44.9 Chronic obstructive pulmonary disease, unspecified; I10 Essential (primary) hypertension; F32.9 Major depressive disorder, single episode, unspecified; I71.4 Abdominal aortic aneurysm, without rupture; F10.21 Alcohol dependence, in remission; F17.210 Nicotine dependence, cigarettes, uncomplicated; E78.5 Hyperlipidemia, unspecified; Z79.899 Other long term (current) drug therapy; Z79.51 Long term (current) use of inhaled steroids
CPT/HCPCS: 36415; 71045; 71275; 78452; 80048; 80061; 84484; 85025; 85027; 85610; 87633; 93005; 93017; 94640; 96361; 96374; 96375; 96376; 99218; 99285; 99406; A9500; J7030; Q9967; A4216; G0378; J2405; J2785

== ENCOUNTER 2018-09-11 08:55 | Day surgery (SDC) | payer MEDICARE, OTHER, SELFPAY ==
[2018-08-30 21:47] VITALS: BMI 23.5
[2018-09-04 13:56] VITALS: BMI 23.5
--- NOTE | 2018-09-11 16:15 | CL.D_ITS ---
Patient Name: LEO SINCLAIR Study Date: 09/11/2018 Performing: Toño Gomez MD Ht: 67 inches 170.18 cm : 1945 Wt: 147.9 lbs 67 kg Age: 73 Gender: male BSA: 1.78 PROCEDURE(S) PERFORMED [id number]/LV CLINICAL PROFILE AND INDICATIONS Indications: Suspected CAD Heart Failure: None Stress/Imaging Stress Test w/SPECT MPI: Yes Result: IndeterminantStress Test with SPECT MPI: Inde terminant CAD Presentations: Symptom unlikely to be ischemic. CONCLUSIONS Mild to moderate disease noted in the right coronary artery and a dominant vessel. RECOMMENDATIONS Medical therapy DESCRIPTION OF PROCEDURE The patient arrived to the procedure lab. The risks and benefits of the procedure as well as a full d escription of our services here and current unavailability of surgical backup were fully explained to the patient and/or their significant other prior to the catheterization. The Timeout was completed, verifying the correct patient and procedure. The patient's procedural site was prepped and draped in the usual fashion. Local anesthetic was given subcutaneously to right radial region with Lidocaine 2% . Using a modified Seldinger technique, arterial access was obtained via the right radial artery, a 6 Fr sheath was inserted. Right Coronary Artery selective angiography was then performed in multiple v iews using a 5 Fr. 4.0 [place] catheter. Left Coronary Artery selective angiography was performed in mu ltiple views using a 5 Fr. 4.0 [place] catheter. Left Ventriculography was performed in [place] projection using a 5 Fr. [place] catheter. LV to AO pullback pressures were then recorded.The arterial sheath was pulled and a TR Band was applied for hemostasis w/ 12ml air CORONARY ANGIOGRAPHY DOMINANCE: Right Dominant LEFT HEART ASSESSMENT Left Ventricular Ejection Fraction: by LV Gram 55 % Normal LV wall motion Normal Left Ventricular systolic function LEFT MAIN: Angiographically normal LEFT ANTERIOR DECENDING ARTERY: Mild luminal irregularities CIRCUMFLEX ARTERY: Mild luminal irregularities RIGHT CORONARY ARTERY: MID RCA: Eccentric 40-50% stenosis and diffuse distal disease COMPLICATIONS No Complications PROCEDURE MEDICATIONS Fentanyl 50 mcg IV Versed 1 mg IV Oxygen: 2 L/min via nasal cannula Heparin diluted in 23cc Heparinized saline. Patient given 10cc IA of this solution- half of cocktail given 09/11/2018 11:07:30 Plavix 75 mg PO 09/11/2018 10:03:00 Verapamil 2.5mg, Ntg 100mcgs, 2000 units of Heparin diluted in 23cc Heparinized saline. Patient give n 10cc IA of this solution- half of cocktail given 09/11/2018 11:07:30 SUMMARY OF HEMODYNAMIC DATA Time AIR REST ECG 09:36:38 AO 89/42 (61) SA 11:10:39 LV 100/-1, 13 11:18:53 LV 99/-1, 14 11:18:59 LV 92/-1, 14 11:20:26 LVp 96/0, 13 11:20:30 AOp 98/42 (65) 11:20:35 Signed By Toño Gomez MD On 09/11/2018 4:14:32 PM Toño Gomez MD
== END 2018-09-11 14:35 | disposition home or self-care (01) ==
LOC: CLSP 08:56
PROVIDERS: Family Provider Internal Medicine; PCP Internal Medicine; Referring Provider Internal Medicine Cardiovascular Disease; Visit Provider Internal Medicine Cardiovascular Disease
DX: I65.21 Occlusion and stenosis of right carotid artery (principal); I10 Essential (primary) hypertension; R07.9 Chest pain, unspecified; R94.39 Abnormal result of other cardiovascular function study; E78.5 Hyperlipidemia, unspecified; I71.4 Abdominal aortic aneurysm, without rupture; J44.9 Chronic obstructive pulmonary disease, unspecified; F04 Amnestic disorder due to known physiological condition; F32.9 Major depressive disorder, single episode, unspecified; F17.210 Nicotine dependence, cigarettes, uncomplicated; Z79.01 Long term (current) use of anticoagulants; Z79.899 Other long term (current) drug therapy
CPT/HCPCS: 93458; 99152; 99153; J7040; C1769; C1894; Q9967

== ENCOUNTER → 2019-01-21 09:20 | Outpatient (CLI) | payer MEDICARE, OTHER, SELFPAY ==
[2018-09-04 13:56] VITALS: BMI 23.5
[2019-01-21 10:58] LABS: PSA,Total - Annual Screen 0.19 ng/mL (0.00-4.00)
== END ==
PROVIDERS: Family Provider Internal Medicine; PCP Internal Medicine; Referring Provider Urology; Visit Provider Urology
DX: Z12.5 Encounter for screening for malignant neoplasm of prostate (principal)
CPT/HCPCS: 36415; 84153; G0103

== ENCOUNTER → 2021-03-13 14:55 | Outpatient (CLI) | payer MEDICARE, OTHER, SELFPAY ==
--- NOTE | 2021-03-13 14:52 | CYSPIN_PTH ---
PATIENT: LEO SINCLAIR LOC: [facility] U#:[id number] AGE/SX: 80/M ROOM: RE03/13/[address]: Dr. Niall Call MD : 1945 BED: DIS: SPEC #: [id number] RECD: 03/14/21 06:53 STATUS: STEVE REMary #: [id number] SRIRAM: 03/13/21 14:[address]: Niall Call DEPT: CYTOLOGY RECD BY: Alona Escamilla ENTERED: 03/14/21 06:53 SP TYPE: CYSPIN FL OTHR DR: Dr. Gardenia Braun MD Tissues: Urine Procedures: Pap Stain (control) Special Stain Group II Cytospin Fluid HEADER OPERATION: Not noted PRE-OP DIAGNOSIS: Microscopic hematuria TISSUE SUBMITTED: Urine for cytology DIAGNOSIS CYTOLOGY Urine for cytology (cytospin): Negative for malignant cells. AM:rey 03/14/2021 CYTOLOGY STUDY Slides are reviewed. CYTOLOGY GROSS Received is 55 ml of yellow cloudy fluid labeled with the patient's name and and designated per the requisition as urine. Submitted for cytology preparation. / rey 03/13/21 TC:5 CPT: 62860
[2021-03-13 17:47] LABS: Cytology, Body Fluid / CSF SEE PATHOLOGY REPORT
[2021-03-13 18:21] LABS: PSA,Total - Annual Screen 0.21 ng/mL (0.00-4.00)
== END ==
PROVIDERS: PCP Internal Medicine; Referring Provider Urology; Visit Provider Urology
DX: Z12.5 Encounter for screening for malignant neoplasm of prostate (principal)
CPT/HCPCS: 36415; 84153; 88108; 88313; G0103

== ENCOUNTER → 2021-04-25 07:32 | Outpatient (CLI) | payer MEDICARE, OTHER, SELFPAY ==
--- NOTE | 2021-04-25 07:35 | CT_ITS ---
STUDY: CTA CHEST REASON FOR EXAM: Male, 76 years old. Thoracic aortic aneurysm 2019-4.6cm RADIATION DOSAGE (If Supplied By Facility): CTDIvol = ( 11.94 ) mGy, DLP = ( 229.98 ) mGycm TECHNIQUE: The examination was performed with the intravenous administration of IV 100mL Isovue-370. Post-processing of the angiographic images was performed, with multiplanar reformation and 3D reconstruction. Individualized dose optimization techniques were used for this CT. COMPARISON: None. FINDINGS: Normal enhancement of the main pulmonary artery and right and left pulmonary arteries. Normal enhancement of the bilateral peripheral pulmonary arteries. There is no demonstrated pulmonary embolism. There is aneurysmal dilatation of the ascending aorta. The transverse diameter of the ascending aorta measures 48.4 mm''s. There is dilatation of the aortic arch. There is mild dilatation of the descending thoracic aorta. Atherosclerotic plaque is seen at the level of the aortic arch and descending thoracic aorta. There is no demonstrated aortic dissection. There are calcifications of the coronary arteries. There are visualized mediastinal lymph nodes, which are within normal size limits, and with normal morphology. Normal hilar regions. Normal visualized trachea and bronchi. Mild degree of linear scarring at the lung bases. Normal pulmonary parenchyma. Normal pleura. Normal chest wall structures. There are degenerative changes of thoracic spine. There is dilatation of the abdominal aorta. CT/CTA Chest W/WO Contrast IMPRESSION: Aneurysmal dilatation of the ascending thoracic aorta with a transverse dimension of 48.4 mm. There is dilatation of the aortic arch as well as the descending thoracic aorta. Electronically Signed: Wil Mar MD at 8:51 EST , Service support ,
[2021-04-25 07:45] LABS: CREATININE FINGERSTICK 0.8 mg/dL (0.70-1.30); EGFR FINGERSTICK > 60.0000 mL/min (>60)
== END ==
PROVIDERS: PCP Internal Medicine; Referring Provider Nurse Practitioner Gerontology; Visit Provider Nurse Practitioner Gerontology
DX: I71.2 Thoracic aortic aneurysm, without rupture (principal)
CPT/HCPCS: 71275; Q9967

== ENCOUNTER → 2021-04-30 07:09 | Outpatient (CLI) | payer MEDICARE, OTHER, SELFPAY ==
--- NOTE | 2021-04-30 17:38 | STRESSREP_ITS ---
Stress Test Report Exercise myocardial perfusion stress test. 76-year-old man with a history of chest pain. Medications Plavix atorvastatin nifedipine ramipril. Stress protocol: Resting EKG demonstrates normal sinus rhythm with a rate of 53 bpm normal intervals are noted resting blood pressure is 112/60 mmHg. The patient exercised according to regular Doug protocol for total duration of 4 minutes and 10 seconds patient completed 1 minute and 10 seconds into stage II of the Doug protocol the maximum heart rate attained was 160 bpm which was 111% of max imum predicted heart rate the maximum workload was 7 metabolic equivalents. At rest there were no ST or T wave changes noted to suggest ischemia and at peak exercise upsloping ST changes were noted with did not meet the criteria for ischemia. No clinical angina was noted. The maximum blood pressure was 142/60 mmHg. Myocardial perfusion protocol. 11.1 mCi of technetium 99m sestamibi was injected at rest. The patient exercised according to regular Doug protocol for 4 minutes and at peak exercise 35.8 mCi of technetium 99m sestamibi was injected stress images were obtained stress and rest images were reconstructed and compared in the short axis vertical long horizontal long axis. Gated images were also obtained Perfusion SPECT analysis: Review of the stress images demonstrate normal uptake of tracer noted in all areas of the myocardium. The resting images similarly demonstrate normal uptake of tracer noted in all areas of the myocardium. No areas of reversibility are noted to suggest ischemia and no previous infarct is noted. Gated SPECT analysis: The gated ejection fraction is 76%. Conclusion: Normal exercise myocardial perfusion stress test at a moderate workload. Preserved ejection fraction.
== END ==
PROVIDERS: PCP Internal Medicine; Referring Provider Nurse Practitioner Gerontology; Visit Provider Nurse Practitioner Gerontology
DX: I25.10 Atherosclerotic heart disease of native coronary artery without angina pectoris (principal); R07.9 Chest pain, unspecified
CPT/HCPCS: 78452; 93017; A9500; A4216; J2785

== ENCOUNTER 2022-03-08 18:09 | Emergency (ER) | payer MEDICARE, OTHER, SELFPAY ==
[2022-03-08 18:10] VITALS: BP 156/70; PULSE 58; RESP 18; TEMP 36.4; O2SAT 99; BMI 26.7
--- NOTE | 2022-03-08 18:53 | EKG12_ITS ---
Test Reason : CP Blood Pressure : / mmHG Vent. Rate : 054 BPM Atrial Rate : 054 BPM P-R Int : 148 ms QRS Dur : 092 ms QT Int : 430 ms P-R-T Axes : 070 -29 056 degrees QTc Int : 407 ms Sinus bradycardia Otherwise normal ECG Confirmed by MARILUZ WILDER, EDWIN ([id number]), editor & co founder KEL TEE ([id number]) on 03/11/2022 10:21:52 AM Referred By: SPIKE Confirmed By:EDWIN MCGRAW MD
[2022-03-08 19:09] VITALS: BP 140/70; PULSE 50; RESP 13; O2SAT 98
[2022-03-08 19:12] LABS: Absolute Lymphocyte Count 1.58 X10^3/uL (0.83-4.51); Absolute Neutrophil Count 4.6 X10^3/uL (2.0-7.7); Basophil# 0.06 X10^3/uL; Basophil% 0.9 % (0-1); Eosinophil# 0.11 X10^3/uL; Eosinophils% 1.6 % (0-5); Hematocrit 37.9 % (40-54); Hemoglobin 12.7 g/dL (13.0-16.5); Lymphocyte # 1.58 X10^3/ul (0.83-4.51); Lymphocyte % 22.9 % (19-41); Mean Corp Hgb Conc 33.5 g/dL (32-36); Mean Corpuscular Hgb 32.2 pg (27.0-32.0); Mean Corpuscular Volume 96.2 fL (80-94); Mean Platelet Vol. 9.6 fl (6.2-12.0); Monocyte# 0.58 X10^3/uL; Monocyte% 8.4 % (0-10); NRBC Flagged by Analyzer 0 % (0-5); Neutrophil # 4.55 X10^3/uL (2.7-7.7); Neutrophil % 65.9 % (47-70); Platelet Count 217 K/mm3 (150-450); RBC Distribution Width CV 12.7 % (11.6-14.6); RBC Distribution Width SD 45.7 fl (35.1-43.9); Red Blood Count 3.94 M/mm3 (4.6-6.2); White Blood Count 6.9 K/mm3 (4.4-11.0)
[2022-03-08 19:31] LABS: Anion Gap 4 (5-15); BUN 25 mg/dL (7-18); BUN/Creat Ratio 33.8 RATIO (10-20); Calcium,Total 9.2 mg/dL (8.5-10.1); Chloride 107 mmol/L (98-107); Creatinine, Serum 0.74 mg/dL (0.70-1.30); D-Dimer Quantitative (DVT/PE) 2.63 FEU/ug/m (0.27-0.49); EST Glomerular Filtration Rate 109 mL/min (>60); Est Glom Filt Rate - Afr Amer 132 mL/min (>60); Estimated Creatinine Clearance 43.06 ml/min; Glucose 84 mg/dL (74-106); Potassium 4.2 mmol/L (3.5-5.1); Sodium Level 140 mmol/L (136-145); Troponin-I HS 4 pg/mL (3.0-78.0)
--- NOTE | 2022-03-08 19:34 | RAD_ITS ---
INDICATION: chest pain EXAMINATION/TECHNIQUE: X-RAY - XR Chest 1 View COMPARISON: 08/30/2018. FINDINGS: The lungs are clear. Tortuous and calcified thoracic aorta. The heart is not enlarged. No pleural effusion or pneumothorax. No acute osseous abnormalities. RAD/Chest 1 View (Portable) IMPRESSION: No acute radiographic abnormalities. Electronically Signed: Jame Peña MD at 20:45 EDT ,
--- NOTE | 2022-03-08 19:41 | CT_ITS ---
INDICATION: AAA TAA EXAMINATION: CTA Chest and CTA Abdomen and Pelvis W/ Contrast Injection (and W/O Contrast Images if performed) TECHNIQUE: Images were obtained of the chest, abdomen and pelvis following IV contrast. A radiation dose optimization technique was used for this scan. IV Contrast dosage and agent: IV 100mL Isovue-370 COMPARISON: 04/25/2021. FINDINGS: Lungs: Unremarkable Mediastinum: The cardiomediastinal silhouette is not enlarged. No mediastinal, hilar or axillary adenopathy. Moderate aortic arch and coronary artery calcifications. Slight interval increase in size of an ascending thoracic aortic aneurysm measuring 4.9 cm, previously 4.7 cm. No obvious filling defect seen within the visualized pulmonary arteries. Pleura: Unremarkable Liver: Unremarkable Gallbladder: Unremarkable Spleen: Unremarkable Pancreas: Unremarkable Adrenal Glands: Unremarkable Kidneys: Unremarkable Vasculature: Severe aortoiliac atherosclerotic disease. There is a 4.9 cm infrarenal abdominal aortic aneurysm. GI Tract: Inflammatory changes surrounding the terminal ileum. Lymphadenopathy: None Peritoneum: No ascites. Bladder: Unremarkable Reproductive organs: Unremarkable Bones/Soft tissues: There are diffuse degenerative changes of the spine. CT/CTA Chst, Abd, Pel W and/or WO IMPRESSION: Slight interval increase in size of an ascending thoracic aortic aneurysm measuring 4.9 cm, previously 4.7 cm. 4.9 cm infrarenal abdominal aortic aneurysm. Findings suspicious for terminal ileitis. Electronically Signed: Jame Peña MD at 20:42 EDT ,
[2022-03-08] MEDS: Mag Hydrox/Al Hydrox/Simeth 30 ML UDC PO (21:14)
[2022-03-08 21:15] VITALS: BP 148/74; PULSE 67; RESP 18; O2SAT 98
--- NOTE | 2022-03-08 21:30 | EDS_ITS ---
HPI History of Present Illness Chief Complaint: Chest Pain Informant: patient and family Narrative Narrative: 77-year-old male presenting to the emergency room with chest pain. Patient states it began this morning. He describes as an ache in the lower anterior a spect of his chest. No shortness of breath nausea or vomiting. No radiation of the symptoms. Notes a history of hypertension hyperlipidemia as well as a known thoracic aortic aneurysm and abdominal aortic aneurysm. He was recently evaluated at [facility] for these. 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 COPD (chronic obstructive pulmonary disease) Essential (primary) hypertension Hyperlipidemia Major depression Nicotine dependence Nonobstructive atherosclerosis of coronary artery Prothrombin gene mutation Thoracic aortic aneurysm (TAA) Wernicke-Korsakoff syndrome (alcoholic) Home Medications nifedipine 30 mg tablet,extended release 30 mg PO DAILY 04/12/21 [History Last Taken Unknown] ramipril 10 mg capsule 10 mg PO DAILY 04/12/21 [History Last Taken Unknown] atorvastatin 40 mg tablet 40 mg PO DAILY #30 tabs 05/07/21 [Rx Last Taken Unknown] aspirin 81 mg chewable tablet 81 mg PO DAILY 03/08/22 [History Last Taken Unknown] omeprazole 40 mg capsule,delayed release 40 mg PO DAILY #30 caps 03/08/22 [Rx Last Taken Unknown] Allergy/AdvReac Type Severity Reaction Status Date / Time latex Allergy Rash Verified 03/08/22 18:17 aspirin AdvReac Swelling Verified 03/08/22 18:23 Family History Mother CVA (cerebral vascular accident) Surgical History History of left heart catheterization (09/11/18) History of total right hip replacement Social History Smoking Status: Current every day smoker tobacco type: cigarettes alcohol intake: former ROS ROS ED Constitutional Constitutional ED: Denies chills, fever(s) or weight loss Eyes Eyes: Denies change in vision or diplopia ENT ENT ED: Denies ear pain, rhinorrhea or sore throat Cardiovascular Cardiovascular: Reports chest pain; Denies orthopnea, palpitations or racing heartbeat Respiratory/Chest Respiratory/Chest: Denies cough, dyspnea, dyspnea on exertion or orthopnea Gastrointestinal Gastrointestinal: Denies abdominal pain, constipation, diarrhea, melena, nausea or vomiting Genitourinary Genitourinary ED: Denies dysuria, hematuria or urinary frequency Musculoskeletal Musculoskeletal: Denies arthralgias or myalgias Integumentary Denies abscess or rash Neurologic Neurologic: Denies headache(s) or weakness Psychiatric Psychiatric: Denies anxiety, depression, suicidal ideation or suicidal thoughts Endocrine Endocrinology: Denies polydipsia, polyphagia or polyuria Allergic/Immunologic Allergic/Immunologic ED: Denies mouth swelling, tongue swelling or urticaria EXAM Physical Exam Const Vital Signs: 03/08/22 18:10 03/08/22 18:17 03/08/22 19:09 Temperature 97.5 F L Temperature Source Temporal Pulse Rate 58 L 50 L Respiratory Rate 18 13 Respiratory Effort Normal Non-Labored Blood Pressure 156/70 H 140/70 H Blood Pressure Mean 98 93 Pulse Ox 99 98 Oxygen Delivery Method Room Air Room Air 03/08/22 21:15 Temperature Temperature Source Pulse Rate 67 Respiratory Rate 18 Respiratory Effort Blood Pressure 148/74 H Blood Pressure Mean 98 Pulse Ox 98 Oxygen Delivery Method Room Air Positive well nourished and well developed General Appearance ED: well developed HEENT Reports normocephalic, head/scalp atraumatic and moist mucous membranes Eyes PERRL and EOMs intact bilaterally Neck no lymphadenopathy, supple and no JVD Resp normal respiratory effort and clear to auscultation bilaterally Cardio regular rate, regular rhythm and no murmurs GI normal to inspection, nondistended, normoactive bowel sounds and non-tender Palpation: soft Back/Spine no CVA tenderness and normal ROM Extremity normal to inspection General Extremety ED: Negative for edema General Extremity: Negative for edema Neuro oriented x3 and CN's II-XII intact bilaterally Sensorium / Orientation: alert Motor Exam: strength 5/5 throughout Psych mental status grossly normal Mood & Affect: Negative for depressed or tearful Skin no rashes or lesions noted and no wounds MDM MDM MDM Narrative Medical decision making narrative: My interpretation of the chest x-ray is no acute process. CBC shows a hemoglobin of 12.7 platelet count of 217. Troponin is 4 and this is very important as she he has had constant symptoms for greater than 6 hours. BMP is otherwise negative. D-dimer is elevated 2.63. Therefore a CTA of the chest was ordered which was negative for dissection or embolism. Please see radiology notes for further details Patient received a GI cocktail and his symptoms improved. I am going to start him on omeprazole. Encouraged him to follow-up with primary care return if worsening or concerns Lab Data Attestation: I reviewed the patient's lab results. Labs: Laboratory Results - last 24 hr 03/08/22 03/08/22 03/08/22 18:32 18:32 18:32 WBC 6.9 RBC 3.94 L Hgb 12.7 L Hct 37.9 L MCV 96.2 H MCH 32.2 H MCHC 33.5 RDW Std Deviation 45.7 H RDW Coeff of Michael 12.7 Plt Count 217 MPV 9.6 Immature Gran % (Auto) 0.300 Neut % (Auto) 65.9 Lymph % (Auto) 22.9 Saunders % (Auto) 8.4 Eos % (Auto) 1.6 Baso % (Auto) 0.9 Absolute Neuts (auto) 4.6 Absolute Lymphs (auto) 1.58 Nucleated RBC % 0 D-Dimer Quant (PE/DVT) 2.63 H* Sodium 140 Potassium 4.2 Chloride 107 Carbon Dioxide 29.0 Anion Gap 4 L BUN 25 H Creatinine 0.74 Estim Creat Clear Calc 43.06 Est GFR (MDRD) Af Amer 132 Est GFR (MDRD) Non-Af 109 BUN/Creatinine Ratio 33.8 H Glucose 84 Calcium 9.2 Troponin I High Sens 4 Radiography Diagnostic Testing: Clinical Impression(s) from Imaging Studies Chest X-Ray 03/08/22 19:34 IMPRESSION: No acute radiographic abnormalities. Electronically Signed: Jame Peña MD at 20:45 EDT , Chest/Abdomen/Pelvis CTA 03/08/22 19:41 IMPRESSION: Slight interval increase in size of an ascending thoracic aortic aneurysm measuring 4.9 cm, previously 4.7 cm. 4.9 cm infrarenal abdominal aortic aneurysm. Findings suspicious for terminal ileitis. Electronically Signed: Jame Peña MD at 20:42 EDT , EKG Initial EKG: Attestation: I personally reviewed and interpreted this EKG as follows: Comments: Sinus bradycardia with a ventricular rate of 54 bpm Discharge Plan Triage Chief Complaint: Chest Pain ED Provider: Elijah Pang Dx/Rx/DC Orders Clinical Impression: Chest pain, Thoracic aortic aneurysm (TAA), AAA (abdominal aortic aneurysm) without rupture Instructions: ED GERD (Adult) Prescriptions: New omeprazole 40 mg capsule,delayed release(DR/EC) 40 mg PO DAILY Qty: 30 0RF No Action ramipril 10 mg capsule 10 mg PO DAILY nifedipine 30 mg tablet extended release 30 mg PO DAILY aspirin [Baby Aspirin] 81 mg Tablet,Chewable 81 mg PO DAILY atorvastatin 40 mg tablet 40 mg PO DAILY Qty: 30 11RF Primary Care Provider: Gardenia Braun Referrals: Gardenia Braun MD [Primary Care Provider] - 1-2 Weeks Disposition Disposition: Home, Self Care
[2022-03-08 21:52] VITALS: RESP 18
== END 2022-03-08 21:53 | disposition home or self-care (01) ==
PROVIDERS: Emergency Provider Emergency Medicine; PCP Internal Medicine; Visit Provider Emergency Medicine
DX: R07.9 Chest pain, unspecified (principal); I71.5 Thoracoabdominal aortic aneurysm, ruptured; I71.4 Abdominal aortic aneurysm, without rupture; I25.10 Atherosclerotic heart disease of native coronary artery without angina pectoris; I10 Essential (primary) hypertension; F17.210 Nicotine dependence, cigarettes, uncomplicated; E78.5 Hyperlipidemia, unspecified; Z79.82 Long term (current) use of aspirin; Z79.899 Other long term (current) drug therapy
CPT/HCPCS: 71045; 71275; 74174; 80048; 84484; 85025; 85379; 93005; 99285; Q9967; A4216

== ENCOUNTER 2024-08-17 05:54 | Inpatient (IN) | payer MEDICARE, OTHER, SELFPAY ==
[2024-08-17] VITALS (15 sets, daily range): BP systolic 105–144; BP diastolic 55–84; PULSE 57–79; RESP 14–19; TEMP 36.7–36.8; O2SAT 94–99; BMI 26.4; BMI 26.0
--- NOTE | 2024-08-17 05:55 | CT_ITS ---
PROCEDURE: STROKE BRAIN/HEAD WITHOUT CONT REASON FOR EXAM: NEURO DEFICIT, ACUTE, STROKE SUSPECTED TECHNIQUE: CT brain was performed without intravenous contrast. COMPARISON: None. FINDINGS: Extensive periventricular white matter changes are present consistent with chronic microvascular ischemic disease. Ventricles and sulci are mildly prominent due to volume loss. Bifrontal volume loss are also present. There is no definite acute intracranial hemorrhage, mass effect or midline shift. The calvarium is intact. Visualized paranasal sinuses are unremarkable. CT/STROKE Brain/Head without Cont IMPRESSION: No acute intracranial hemorrhage, mass effect or midline shift. Extensive plycor operator akshat microvascular ischemic disease. If there is concern for acute infarct, MRI may be obtained. One or more dose reduction techniques were used (e.g., Automated exposure contr ol, adjustment of the mA and/or kV according to patient size, use of iterative reconstruction technique). Reading Location: [id number]
--- NOTE | 2024-08-17 05:55 | EKG12_ITS ---
Test Reason : POSS STROKE Blood Pressure : */* mmHG Vent. Rate : 58 BPM Atrial Rate : 58 BPM P-R Int : 136 ms QRS Dur : 90 ms QT Int : 452 ms P-R-T Axes : 83 -35 66 degrees QTcB Int : 443 ms Sinus bradycardia Left axis deviation Possible Anterior infarct , age undetermined Abnormal ECG Confirmed by NADEGE WILDER, FELISHA ([id number]), scientific publications editor KEL TEE ([id number]) on 08/23/2024 11:12:45 AM Referred By: Confirmed By: FELISHA LIGHT MD
--- NOTE | 2024-08-17 05:55 | RAD_ITS ---
PROCEDURE: CHEST 1 VIEW REASON FOR EXAM: NEURO DEFICIT, ACUTE, STROKE SUSPECTED TECHNIQUE: Frontal view of the chest. COMPARISON: Chest x-ray performed on 03/08/2022. FINDINGS: The heart size is normal. Interstitial markings appears to be increased when compared to prior examination. At the lung bases, there are conglomerate aeration of hazy interstitial opacities. These may be further evaluated with cross-sectional imaging. RAD/Chest 1 View IMPRESSION: As above. Reading Location: [id number]
--- NOTE | 2024-08-17 05:56 | CT_ITS ---
PROCEDURE: STROKE CTA HEAD AND NECK W/CON REASON FOR EXAM: NEURO DEFICIT, ACUTE, STROKE SUSPECTED TECHNIQUE: CTA imaging of the head and neck from the aortic arch to the skull vertex with intravenous contrast. 3D reconstructions. CONTRAST: COMPARISON: CT brain performed on the same day. FINDINGS: Limited examination. There are filling defects present within the basilar artery highly suspicious for thrombus. The right vertebral artery is occluded at multiple segments.. These findings are highly suspicious for acute thrombosis of the basilar artery. The left vertebral arteries patent. There is partial thrombosis of the visualized portion of the right subclavian artery best seen on image 94/560. There is atheromatous calcification seen at the carotid bulb bilaterally, [id number]. This is resulting into greater than 70% stenosis within the proximal left ICA and approximately 50% stenosis within the proximal right ICA. The anterior circulation is patent. Apparent filling defect within the left IJ (image 230/560) may represent thrombosis versus artifact. CT/STROKE CTA Head AND Neck W/Con IMPRESSION: Limited examination. 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 Partial thrombosis of visualized subclavian artery. Greater than 70 percent stenosis within the left proximal ICA. Approximately 50 percent stenosis within the right proximal ICA. Partial thrombosis of the right subclavian artery, partially visualized. Ray Dennis MD was notified of the critical findings in the ED at 6:33 a.m. Ea ladnon standard time. One or more dose reduction techniques were used (e.g., Automated exposure contr ol, adjustment of the mA and/or kV according to patient size, use of iterative reconstruction technique). Red Alert: Acute basilar artery thrombosis, right vertebral artery thrombosis n ear the acute.. The critical information above was relayed directly by me by telephone to Ray Dennis on 08/17/2024 at 6:33 am with readback verification. Reading Location: [id number]
--- NOTE | 2024-08-17 06:06 | EX.ED.DYSGE1 ---
HPI History of Present Illness Chief Complaint: Stroke Alert Informant: patient and EMS Narrative Narrative: Patient is an 79-year-old male with past medical history of hypertension hyperlipidemia COPD nicotine dependence and CAD. Reportedly he went to bed around 830/9 PM last night and then awoke this morning and had a right arm and leg weakness as well as inability to stand or sit up as he was falling towards the right. Secondary to this EMS was called. They reported upon arrival he is awake and alert but they note right sided weakness. They report his blood sugar is normal. With concern for an acute CVA he was transported to the ER for evaluation. Upon arrival to the ER he is awake and alert and does have right sided deficit but there is improvement in strength of the arms and legs compared to a EMS reported. 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) Alcoholism Major depression COPD (chronic obstructive pulmonary disease) Essential (primary) hypertension AAA (abdominal aortic aneurysm) without rupture Home Medications ?Medication ?Instructions ?Recorded ?Last Taken ?Type ramipril 10 mg capsule 10 mg PO DAILY 04/12/21 Unknown History atorvastatin 40 mg tablet 40 mg PO DAILY #30 tabs 05/07/21 Unknown Rx aspirin 81 mg chewable tablet 81 mg PO DAILY 03/08/22 Unknown History omeprazole 40 mg capsule,delayed 40 mg PO DAILY #30 caps 03/08/22 Unknown Rx release nifedipine 30 mg tablet,extended 30 mg PO DAILY PCP had him on 60 03/10/23 Unknown Rx release 24 hr mg but bp too low, please change #90 tabs mecobalamin (vitamin B12) 1,000 1,000 mcg PO DAILY 05/20/23 Unknown History mcg chewable tablet Allergy/AdvReac Type Severity Reaction Status Date / Time latex Allergy Rash Verified 08/17/24 05:56 Family History Mother CVA (cerebral vascular accident) Surgical History History of left heart catheterization (09/11/18) History of total right hip replacement Social History Smoking Status: Current every day smoker tobacco type: cigarettes alcohol intake: former substance use type: does not use caffeine: Yes Type: coffee ROS ROS ED Constitutional Constitutional ED: Denies chills or fever(s) Eyes Eyes: Denies blurry vision or change in vision ENT ENT ED: Denies sore throat Cardiovascular Cardiovascular: Denies chest pain, palpitations or racing heartbeat Respiratory/Chest Respiratory/Chest: Denies cough or dyspnea Gastrointestinal Gastrointestinal: Denies abdominal pain, diarrhea, nausea or vomiting Genitourinary Genitourinary ED: Denies dysuria Musculoskeletal Musculoskeletal: Denies back pain or neck pain Integumentary Denies rash Neurologic Neurologic: Reports paresthesias and weakness; Denies headache(s) Hematologic/Lymphatic Hematologic/Lymphatic: Denies easy bleeding or easy bruising EXAM Physical Exam Const Vital Signs: 08/17/24 05:55 08/17/24 05:56 08/17/24 06:03 Temperature 98.0 F Temperature Source Oral Pulse Rate 60 61 Respiratory Rate 16 16 Blood Pressure 135/63 H 105/65 128/63 H Blood Pressure Mean 87 78 84 Pulse Ox 97 97 Oxygen Delivery Method Room Air Room Air Room Air 08/17/24 06:09 08/17/24 06:25 08/17/24 06:30 Temperature Temperature Source Pulse Rate 60 60 Respiratory Rate 18 18 Blood Pressure 119/64 119/64 Blood Pressure Mean 82 82 Pulse Ox 94 98 98 Oxygen Delivery Method Room Air Room Air Room Air 08/17/24 06:54 08/17/24 07:00 08/17/24 07:00 Temperature Temperature Source Pulse Rate 66 62 63 Respiratory Rate 18 18 18 Blood Pressure 122/63 H 122/63 H 122/63 H Blood Pressure Mean 82 82 82 Pulse Ox 96 97 97 Oxygen Delivery Method Room Air Room Air Room Air Positive well nourished and well developed General Appearance ED: well developed; Negative for pallor HEENT HEENT Narrative: Normocephalic atraumatic Eyes PERRL and EOMs intact bilaterally General Eye ED: Negative for scleral icterus Neck supple Neck Narrative: No nuchal rigidity or meningeal signs Chest Wall palpation of chest normal Resp normal respiratory effort Resp Narrative: Breath sounds are diminished throughout with diffuse expiratory wheeze and rhonchi in the bilateral bases consistent with history of COPD but no signs of respiratory distress Cardio regular rate and regular rhythm Rate: other Other Details: Heart is regular rate and rhythm Radial and carotid pulses are equal and symmetric GI normal to inspection, nondistended, normoactive bowel sounds, non-tender, non-distended and no masses GI Narrative: No voluntary guarding or rigidity or pulsatile mass Auscultation: normoactive bowel sounds Palpation: soft Extremity normal to inspection Extremity Narrative: No asymmetric edema no pitting edema negative Homans' sign bilaterally Neuro oriented x3 Neuro Narrative: GCS of 15 Patient is awake and alert to person place and time He has right arm weakness and right leg weakness compared to left as there is a drift to both the right upper and lower extremity. He receives 1 point for the arm and leg drift. There is mild right sided facial paralysis noted as well which she also receives 1 point. He has loss of vision in the right eye upper outer quadrant for which he receives 1 point. There is also ataxia of the right arm compared to the left and this receives 1 point as well Total NIH stroke scale score of 5 No truncal ataxia noted Sensorium / Orientation: alert Psych mental status grossly normal Skin no rashes or lesions noted General Skin Exam: Negative for jaundice or pallor MDM MDM MDM Narrative Medical decision making narrative: Patient arrived to the ER with stable vitals he is awake and alert and protecting his airway. Patient reported he went to bed around 830 or 9 PM and then awoke this way. EMS reported truncal ataxia with right arm and leg flaccid paralysis. There has been spontaneous improvement by the time he arrived to the ER. Based on the fact his symptoms are considered a wake-up stroke and he went to bed early last evening he is outside any window for TNK and this is confirmed by the [facility] neurologist. The patient receives a stroke scale score of 5 upon arrival. On repeat evaluation he has had resolution of his right leg weakness change in his stroke scale score to a 4. The noncontrast CT reveals no bleed just microvascular ischemic changes were correlates with his medical condition and history. The CTA revealed multiple areas of thrombosis and occlusion but the neurologist feels this is chronic and related to his history of hypertension hyperlipidemia nicotine dependence and CAD. He feels there is no need for emergent transfer or thrombectomy and that medical management at this time with aspirin and Plavix and continued workup with carotid ultrasound as well as MRI is the most appropriate plan of care. The case was discussed with patient and family and they are agreeable to this especially as there has been improvement from his initial symptoms at awakening. The plan of care was discussed with the hospitalist who agrees to accept the patient for continued treatment History & Record Review Discussion w/independent historian: EMS personnel, Patient and Family Lab Data Attestation: I reviewed the patient's lab results. Labs: Laboratory Results - last 24 hr 08/17/24 06:12 WBC 5.6 RBC 3.67 L Hgb 10.9 L Hct 33.0 L MCV 89.9 MCH 29.7 MCHC 33.0 RDW Std Deviation 44.2 H RDW Coeff of Michael 13.5 Plt Count 204 MPV 9.5 Immature Gran % (Auto) 0.200 Neut % (Auto) 68.6 Lymph % (Auto) 18.4 L [place] % (Auto) 9.4 Eos % (Auto) 2.0 Baso % (Auto) 1.4 H Absolute Neuts (auto) 3.8 Absolute Lymphs (auto) 1.02 Nucleated RBC % 0 PT 13.6 INR 1.0 APTT 28.4 Sodium 134 Potassium 4.1 Chloride 101 Carbon Dioxide 23.5 Anion Gap 10 BUN 19 Creatinine 0.85 Estim Creat Clear Calc 53.53 Est GFR (MDRD) Non-Af 88 BUN/Creatinine Ratio 22.5 H Glucose 127 H Calcium 8.9 Ethyl Alcohol < 10.1 Radiography Diagnostic Testing: Clinical Impression(s) from Imaging Studies Brain CT 08/17/24 05:55 IMPRESSION: No acute intracranial hemorrhage, mass effect or midline shift. Extensive chronic microvascular ischemic disease. If there is concern for acute infarct, MRI may be obtained. One or more dose reduction techniques were used (e.g., Automated exposure control, adjustment of the mA and/or kV according to patient size, use of iterative reconstruction technique). Reading Location: [id number] Chest X-Ray 08/17/24 05:55 IMPRESSION: As above. Reading Location: [id number] Head/Neck CTA 08/17/24 05:56 IMPRESSION: Limited examination. 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 Partial thrombosis of visualized subclavian artery. Greater than 70 percent stenosis within the left proximal ICA. Approximately 50 percent stenosis within the right proximal ICA. Partial thrombosis of the right subclavian artery, partially visualized. Ray Dennis MD was notified of the critical findings in the ED at 6:33 a.m. Eastern standard time. One or more dose reduction techniques were used (e.g., Automated exposure control, adjustment of the mA and/or kV according to patient size, use of iterative reconstruction technique). Red Alert: Acute basilar artery thrombosis, right vertebral artery thrombosis near the acute.. The critical information above was relayed directly by me by telephone to Ray Dennis on 08/17/2024 at 6:33 am with readback verification. Reading Location: [id number] Management Discussion w/another healthcare provider: Hospitalist, Syrup Maker and Radiologist Critical Care Time Critical Care Time: Yes Critical care time (excluding procedures): Discussing w/Patient &/or Family/Helper Marble Finisher, Discussing w/Consultants, Arranging Admission or Transfer and - (Please note critical care time of 33 minutes) Discharge Plan Dx/Rx/DC Orders Clinical Impression: Acute cerebrovascular accident (CVA), Essential (primary) hypertension, Hyperlipidemia, Nicotine dependence Disposition Disposition: [facility]
[2024-08-17 06:19] LABS: Absolute Lymphocyte Count 1.02 X10^3/uL (0.83-4.51); Absolute Neutrophil Count 3.8 X10^3/uL (2.0-7.7); Basophil# 0.08 X10^3/uL; Basophil% 1.4 % (0-1); Eosinophil# 0.11 X10^3/uL; Hemoglobin 10.9 g/dL (13.0-16.5); Lymphocyte # 1.02 X10^3/ul (0.83-4.51); Lymphocyte % 18.4 % (19-41); Mean Corpuscular Hgb 29.7 pg (27.0-32.0); Mean Corpuscular Volume 89.9 fL (80-94); Mean Platelet Vol. 9.5 fl (6.2-12.0); Monocyte# 0.52 X10^3/uL; Monocyte% 9.4 % (0-10); NRBC Flagged by Analyzer 0 % (0-5); Neutrophil # 3.81 X10^3/uL (2.7-7.7); Neutrophil % 68.6 % (47-70); Platelet Count 204 K/mm3 (150-450); RBC Distribution Width CV 13.5 % (11.6-14.6); RBC Distribution Width SD 44.2 fl (35.1-43.9); Red Blood Count 3.67 M/mm3 (4.6-6.2); White Blood Count 5.6 K/mm3 (4.4-11.0)
[2024-08-17 06:32] LABS: Prothrombin Time (Protime)PT. 13.6 SECONDS (11.7-14.9)
[2024-08-17 06:37] LABS: Partial Thromboplast Time 28.4 Seconds (24.1-36.2)
[2024-08-17 06:43] LABS: Alcohol, Blood (Medical)-Serum < 10.1 mg/dL (<=10.0)
[2024-08-17 06:50] LABS: Anion Gap 10 (5-15); BUN 19 mg/dL (4-19); BUN/Creat Ratio 22.5 RATIO (10-20); Calcium,Total 8.9 mg/dL (7.6-11.0); Carbon Dioxide 23.5 mmol/L (21.0-32.0); Chloride 101 mmol/L (98-108); Creatinine, Serum 0.85 mg/dL (0.70-1.20); EST Glomerular Filtration Rate 88 (>60); Estimated Creatinine Clearance 53.53 ml/min (50-250); Glucose 127 mg/dL (70-99); Potassium 4.1 mmol/L (3.3-5.1); Sodium Level 134 mmol/L (133-145)
[2024-08-17] MEDS: Aspirin 325 MG Tablet PO (07:19)
[2024-08-17] MEDS: Clopidogrel Bisulfate 300 MG Tablet PO (07:19)
--- NOTE | 2024-08-17 07:40 | HP.PCM.HOS_ITS ---
[facility] - General General Date of Service: 08/17/24 Chief Complaint: Right-sided weakness [facility] Narrative LEO SINCLAIR, is a 79 M who presents with right-sided weakness. Patient awoke this morning with right-sided weakness and instability. Last known well was around 2030 on the . Patient had dense right-sided hemiparesis when he presented. Patient underwent a workup in the emergency room. CTA of the head and neck showed an acute basilar artery thrombosis, right supra Teba heart cheerio occlusion which may be acute to subacute. Partial thrombosis of the visualized subclavian artery, greater than 70% stenosis of the left proximal ICA, approximately 50% stenosis of the right proximal ICA. Partial thrombosis of the right subclavian artery. [facility]rology was consulted and patient was deemed not a candidate for TNK given unknown time of onset greater than 4 hours and did not feel that transfer was necessary for the CTA findings. Patient has never had a stroke before. 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) Alcoholism Major depression COPD (chronic obstructive pulmonary disease) Essential (primary) hypertension AAA (abdominal aortic aneurysm) without rupture Home Medications ?Medication ?Instructions ?Recorded ?Last Taken ?Type ramipril 10 mg capsule 10 mg PO DAILY 04/12/21 Unkn own History atorvastatin 40 mg tablet 40 mg PO DAILY #30 tabs 04/10 02/27 Unknown Rx aspirin 81 mg chewable tablet 81 mg PO DAILY 03/08/22 Unknown History omeprazole 40 mg capsule,delayed 40 mg PO DAILY #30 ca ps 03/08/22 Unknown Rx release nifedipine 30 mg tablet,extended 30 mg PO DAILY PCP gamez d him on 60 03/10/23 Unknown Rx release 24 hr mg but bp too low, please richie trammell #90 tabs mecobalamin (vitamin B12) 1,000 1,000 mcg PO DAILY 05/31 Unknown History mcg chewable tablet Allergy/AdvReac Type Severity Reaction Status Date / Time latex Allergy Rash Verified 08/17/24 05:56 Family History Mother CVA (cerebral vascular accident) Surgical History History of total right hip replacement History of left heart catheterization (09/11/18) Social History Smoking Status: Current every day smoker tobacco type: cigarettes alcohol intake: former substance use type: does not use caffeine: Yes Type: coffee ROS ROS Narrative No visual changes. No headache. All review of systems were negative except as mentioned above in the history of present illness and the other review of systems. Vital Signs Vital Signs Vital Signs: 08/17/24 05:55 08/17/24 05:56 08/17/24 06:03 Temperature 36.7 C Temperature Source Oral Pulse Rate 60 61 Respiratory Rate 16 16 Blood Pressure 135/63 H 105/65 128/63 H Blood Pressure Mean 87 78 84 Pulse Ox 97 97 Oxygen Delivery Method Room Air Room Air Room Air 08/17/24 06:09 08/17/24 06:25 08/17/24 06:30 Temperature Temperature Source Pulse Rate 60 60 Respiratory Rate 18 18 Blood Pressure 119/64 119/64 Blood Pressure Mean 82 82 Pulse Ox 94 98 98 Oxygen Delivery Method Room Air Room Air Room Air 08/17/24 06:54 08/17/24 07:00 08/17/24 07:00 Temperature Temperature Source Pulse Rate 66 62 63 Respiratory Rate 18 18 18 Blood Pressure 122/63 H 122/63 H 122/63 H Blood Pressure Mean 82 82 82 Pulse Ox 96 97 97 Oxygen Delivery Method Room Air Room Air Room Air 08/17/24 07:30 Temperature Temperature Source Pulse Rate 57 L Respiratory Rate 18 Blood Pressure 112/84 H Blood Pressure Mean 93 Pulse Ox 97 Oxygen Delivery Method Room Air Weight Weight: 61.5 kg Body Mass Index (BMI) 26.4 Physical Exam Narrative - Physical Exam General: Alert, Oriented x3, Cooperative HEENT: Atraumatic, PERRLA, EOMI, Normocephalic Oral: Moist Mucosa, No Gingival or Mucosal Lesions/ Ulcerations Neck: No thyromegaly, Negative Carotid Bruits Lungs: Clear to auscultation, Normal air movement Cardiovascular: Regular rate, Normal S1, Normal S2, No murmurs Abdomen: Bowel Sounds Present, Soft, Non Tender, Non-Distended, No Hepato- splenomegaly Extremities: No clubbing, No cyanosis, No edema, Capillary Refill Less than 3 Seconds Skin: No rashes, No breakdown Musculoskeletal: No Tenderness to Palpation of Joints or Extremities Neurological: Cranial nerves II through XII grossly intact. Muscle strength 4:55 in the AM left upper and left lower extremity. 4-5 in the right upper and right lower extremity. Ataxia the right [id number] and right [id number]. Sensation grossly intact throughout. Psych/Mental Status: Normal Affect, Appropriate Results Lab / Micro Data Attestation: I reviewed the patient's lab results. 08/17/24 06:12 08/17/24 06:12 Labs: Laboratory Results - last 24 hr 08/17/24 06:12: WBC 5.6, RBC 3.67 L, Hgb 10.9 L, Hct 33.0 L, MCV 89.9, MCH 29.7, MCHC 33.0, RDW Std Deviation 44.2 H, RDW Coeff of Michael 13.5, Plt Count 204, MPV 9.5, Immature Gran % (Auto) 0.200, Neut % (Auto) 68.6, Lymph % (Auto) 18.4 L, Pocahontas % (Auto) 9.4, Eos % (Auto) 2.0, Baso % (Auto) 1.4 H, Absolute Neuts (auto) 3.8, Absolute Lymphs (auto) 1.02, Nucleated RBC % 0, PT 13.6, INR 1.0, APTT 28.4, Sodium 134, Potassium 4.1, Chloride 101, Carbon Dioxide 23.5, Anion Gap 10, BUN 19, Creatinine 0.85, Estim Creat Clear Calc 53.53, Est GFR (MDRD) Non-Af 88, BUN/Creatinine Ratio 22.5 H, Glucose 127 H, Calcium 8.9, Ethyl Alcohol < 10.1 EKG Initial EKG: Attestation: I personally reviewed and interpreted this EKG as follows: Prior EKG tracings: available for review EKG Rhythm Intrepretation: Sinus Rhythm Imaging Radiology Impression Brain CT 08/17/24 05:55 IMPRESSION: No acute intracranial hemorrhage, mass effect or midline shift. Extensive chronic microvascular ischemic disease. If there is concern for acute infarct, MRI may be obtained. One or more dose reduction techniques were used (e.g., Automated exposure control, adjustment of the mA and/or kV according to patient size, use of iterative reconstruction technique). Reading Location: [facility] Chest X-Ray 08/17/24 05:55 IMPRESSION: As above. Reading Location: [facility] Head/Neck CTA 08/17/24 05:56 IMPRESSION: Limited examination. 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 Partial thrombosis of visualized subclavian artery. Greater than 70 percent stenosis within the left proximal ICA. Approximately 50 percent stenosis within the right proximal ICA. Partial thrombosis of the right subclavian artery, partially visualized. Ray Dennis MD was notified of the critical findings in the ED at 6:33 a.m. Eastern standard time. One or more dose reduction techniques were used (e.g., Automated exposure control, adjustment of the mA and/or kV according to patient size, use of iterative reconstruction technique). Red Alert: Acute basilar artery thrombosis, right vertebral artery thrombosis near the acute.. The critical information above was relayed directly by me by telephone to Ray Dennis on 08/17/2024 at 6:33 am with readback verification. Reading Location: [facility] Assessment & Plan Assessment/Plan (1) Acute cerebrovascular accident (CVA): PLAN: Unknown time of onset. Patient not a candidate for TNK nor is he candidate for LVO retrieval. Patient loaded with aspirin and clopidogrel in the emergency room. Will continue with that on the floor. Patient already on 40 mg of atorvastatin. Check MRI of the brain, carotid ultrasound, 2D echocardiogram, therapy evaluations (PT, OT and speech therapy) (2) Carotid stenosis: PLAN: patient was noted to have carotid stenosis more prominent on the left. Recommend the patient follow-up with vascular surgery as outpatient. Patient has vascular surgery at [facility] for his aortic aneurysms. Check carotid duplex (3) Tobacco abuse: PLAN: Exam the patient has daughter that smoking is his biggest preventable risk factor. Strongly advised cessation to help prevent further strokes in the future. PLAN: Plan Chronic conditions * Aortic aneurysms, thoracic and abdominal. Currently stable. Follow-up with vascular surgery as outpatient. * Peripheral arterial disease, patient noted bilateral subclavian artery partial thrombosis. Follow-up with vascular surgery as outpatient. * Hypertension: Hold antihypertensives for the next 24 hours to maintain cerebral perfusion pressure. VTE prophylaxis with enoxaparin CODE STATUS: Addressed with the patient. Patient wishes to be full code. Charges/Coding Visit Charges Inpatient E&M: 05288 Init Hosp L3
--- NOTE | 2024-08-17 08:34 | CDU_ITS ---
Reason For Study Reason For Study: CVA Rt. Velocities/BP Lt. Velocities/BP Prox CCA 31.5/6.9 cm/sec. Prox CCA 67.4/12.6 cm/sec. Mid CCA 21.8/4.7 cm/sec. Mid CCA 54.1/8.8 cm/sec. Dist CCA 25.8/4.7 cm/sec. Dist CCA 51.3/7.8 cm/sec. Prox ICA 39.4/10.9 cm/sec. Prox ICA 46.5/13.5 cm/sec. Mid ICA 130.2/27.9 cm/sec. Mid ICA 130.2/35.8 cm/sec. Dist ICA 74.0/15.6 cm/sec. Dist ICA 65.4/12.3 cm/sec. Rt. ICA/CCA = 6.0. Lt. ICA/CCA = 2.4. Prox ECA 53.5/4.6 cm/sec. Prox ECA 102.8/0.0 cm/sec. Rt. Vert. 28.6/2.2 cm/sec. Lt. Vert. 61.7/9.7 cm/sec. Right Extracranial There is heterogeneous, irregular atherosclerotic plaque noted in the right common carotid artery. There is heterogeneous, irregular atherosclerotic plaque noted in the right internal carotid artery. The atherosclerotic plaque causes acoustic shadowing. There is heterogeneous, irregular atherosclerotic plaque noted in the right external carotid artery. Antegrade flow is noted in the right vertebral artery. Left Extracranial There is heterogeneous, irregular atherosclerotic plaque noted in the left common carotid artery. There is heterogeneous, irregular atherosclerotic plaque noted in the left internal carotid artery. There is heterogeneous, irregular atherosclerotic plaque noted in the left external carotid artery. The atherosclerotic plaque causes acoustic shadowing. Antegrade flow is noted in the left vertebral artery. Procedure Carotid Duplex 65669. This is a Carotid Duplex examination using B-mode, color flow and specral Doppler. Exam performed portable in ICU/CCU. Preliminary given to Sammy Mann DO. VL/Carotid Duplex Ultrasound Interpretation Summary Moderate (50-69%) stenosis right extracranial internal carotid. Moderate (50-69%) stenosis left extracranial internal carotid. Patent and antegrade vertebrals bilaterally. Ordering Physician: Sammy Mann Performed By: Alaina Ivey RVT and Student
--- NOTE | 2024-08-17 08:34 | ECHOD_ITS ---
Reason For Study Reason For Study: TIA/CVA Procedure This was a 2D Doppler, Color Flow transthoracic echocardiogram. Exam performed portable in ICU/CCU. Left Ventricle Normal LV size. The estimated ejection fraction is 65 %. No evidence for diastolic dysfunction. No regional wall motion abnormalities noted. Right Ventricle Normal RV size. Normal systolic function. Atria The left and right atria are normal. No doppler evidence for ASD. Mitral Valve There is no mitral valve stenosis. No mitral valve insufficiency. Tricuspid Valve There is no tricuspid stenosis. Mild tricuspid valve insufficiency. Pulmonary artery systolic pressure is 35 mmHg. Aortic Valve Aortic sclerosis, no stenosis. There is no aortic stenosis. No aortic valve insufficiency. Pulmonic Valve There is no pulmonic valvular stenosis. No pulmonic valve insufficiency. Great Vessels Normal sized aortic root. Pericardium/Pleural No pericardial effusion. MMode/2D Measurements & Calculations LVIDd: 4.4 cm IVSd: 0.91 cm Ao root diam: 3.4 cm LVIDs: 2.8 cm LVPWd: 0.97 cm RVDd: 3.8 cm FS: 36.1 % LAV(MOD-bp): 32.3 ml LVAd ap4: 28.5 cm2 SV(MOD-sp4): 61.5 ml LAV(MOD-bp) Indexed: 18.9 ml/m2 LVLd ap4: 7.5 cm SI(MOD-sp4): 35.9 ml/m2 LAV(MOD-sp2): 28.4 ml EDV(MOD-sp4): 87.5 ml LAV(MOD-sp4): 30.8 ml EDV(sp4-el): 91.9 ml LVAs ap4: 13.4 cm2 LVLs ap4: 6.2 cm ESV(MOD-sp4): 26.0 ml ESV(sp4-el): 24.5 ml EF(MOD-sp4): 70.3 % EF(sp4-el): 73.4 % SV(sp4-el): 67.4 ml LA A4 area: 14.0 cm2 LA dimension(2D): 2.9 cm RA A4 area: 16.4 cm2 TAPSE: 2.4 cm Time Measurements MV dec time: 0.21 sec Doppler Measurements & Calculations MV E max raj: 92.3 cm/sec Lat Peak E' Raj: 11.4 cm/sec Med Peak E' Raj: 11.9 cm/sec MV A max raj: 74.7 cm/sec E/E' lat: 8.1 E/E' med: 7.7 MV E/A: 1.2 Ao V2 max: 112.7 cm/sec LV V1 max: 93.9 cm/sec PA V2 max: 100.5 cm/sec Ao max P.1 mmHg LV V1 max P.5 mmHg TR max raj: 284.4 cm/sec TR max P.4 mmHg ECHO/Echo Complete Interpretation Summary The estimated ejection fraction is 65 %. No evidence for diastolic dysfunction. Ordering Physician: Sammy Mann Referring Physician: SERA CASTILLO Performed By: Asha Rae RDCS
--- NOTE | 2024-08-17 08:34 | MRI_ITS ---
PROCEDURE: BRAIN WITHOUT CONTRAST (MRIBR), 08/17/2024 REASON FOR EXAM: CVA COMPARISON: CT and CTA of same date. TECHNIQUE: Multisequence multiplanar MRI brain was performed without intravenous contrast. Contrast: None. FINDINGS: Variable overall mild motion limitation. The coronal T2 sequence is moderately motion degraded. Cerebrum: Small acute infarct in the posterolateral aspect of the left thalamus with T2/FLAIR signal. No significant mass-effect or appreciable hemorrhagic conversion. Fairly advanced patchy supratentorial white matter signal abnormalities, nonspecific but compatible with chronic microvascular ischemic changes. Mild cerebral volume loss. Cerebellum: Punctate acute infarcts in the right cerebellar hemisphere, probably too small to evaluate on T2/FLAIR. No appreciable mass effect or hemorrhagic conversion. Brainstem: Unremarkable. Ventricles/extra-axial spaces: Unremarkable. Major flow voids: Better evaluated on comparison exams of same date. Abnormal right vertebral and basilar artery flow voids noted. Paranasal sinuses: Mild right mastoid effusion.. Scalp/calvarium: Unremarkable. Orbits: Bilateral cataract surgery.. Other: Partially empty sella, can be a normal variant or may be seen in the setting of idiopathic intracranial hypertension amongst other etiologies. MRI/Brain without Contrast IMPRESSION: 1. 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 Punctate acute infarcts in the ri ght cerebellum. 2. Abnormal posterior circulation flow voids, better evaluated on previous CTA. 3. Mild right mastoid effusion. 4. Additional description as above. Findings in impression #1 were discussed by telephone with Dr. Mann at 9:33 am [facility] on 08/17/2024 Reading Location: [id number]
[2024-08-17] MEDS: Pantoprazole Sodium 40 MG Tablet PO (09:07)
[2024-08-17] MEDS: Enoxaparin 40 MG/0.4 ML Syringe SC (09:07)
[2024-08-17] MEDS: Atorvastatin Calcium 40 MG Tablet PO (09:07)
--- NOTE | 2024-08-17 11:15 | CASEMGMT ---
RN CM Face to Face with patient for initial transition planning/care coordination assessment. RN CM introduced self and role at [facility]. Patient lying in bed, alert and oriented, daughter at bedside. Patient willing to participate in assessment and is able to answer all questions appropriately. Care providers, pharmacy, and demographics verified. Strata: 2 PCP: Kade Specialists: Luis Felipe DEMPSEY cardiology Preferred Pharmacy: [facility] Insurance: [employer], [employer] Prescription Benefit: yes Living Will/HPOA: none LNOK: , daughter Living Arrangements: Patient lives with in a single story home with 3 steps and railing to enter. Patient was independent at home. Transportation: self, daughter DME/HHC: Patient has shower chair, raised toilet, cane, walker at home. Patient has had HHC in the past and has been to TCU in the past. Patient wishes to discharge home, discussed need for additional therapy via RU, SNF, HHC, or outpatient pending progress with therapy. Patient states he has no further needs or concerns at this time. CM to follow for discharge planning needs that may arise. Disposition Plan: TBD, anticipate RU pending progress with therapy. Alaina RICE, RN, CM
--- NOTE | 2024-08-17 12:38 | STROKE.CONS ---
Assessment and Plan: Stroke Assessment/Plan LEO SINCLAIR is a 79 M with a history of hypertension hyperlipidemia COPD nicotine dependence and CAD presents with right arm, leg weakness, numbness. 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 MRI: Right cerebellar and left thalamic stroke Posterior circulation stroke likely from Large vessel disease vs other causes Plan Continue ASA, plavix for now Please obtain ECHO, FLP, HbA1C Continue serial neurological outcome HTN: Permissive hypertensive acutely HLD: Continue statin ICA stenosis; F/up with vascular surgery routinely as out patient once out of acute phase PT, OT evaluation Smoking cessation Stroke education Thanks for consult. Spent 80 min in evaluation and management of this patient. HPI Consult Data Date of Consult: 08/17/24 HPI Narrative HPI Narrative: LEO SINCLAIR, is a 79 M with past medical history of hypertension hyperlipidemia COPD nicotine dependence and CAD. He went to bed around 830/9 PM last night and then awoke this morning around 2-2:30 am with right arm and leg weakness as well as inability to stand or sit up as he was falling towards the right. Later EMS was called. His blood sugar is normal. Upon arrival to the ER he is awake and alert with right sided deficit but there is improvement in strength of the arms and legs compared to a EMS reported. He feels numb of the right side along with weakness. he denies having slurred speech or facial droop. CTA: Showed BA non occlusive thrombus, RVA occlusion, R subclavian partial thrombus, 70% left ICA and 50% LANIE stenosis. 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) Alcoholism Major depression COPD (chronic obstructive pulmonary disease) Essential (primary) hypertension AAA (abdominal aortic aneurysm) without rupture Home Medications ?Medication ?Instructions ?Recorded ?Last Taken ?Type ramipril 10 mg capsule 10 mg PO DAILY 04/12/21 Unknown History atorvastatin 40 mg tablet 40 mg PO DAILY #30 tabs 05/07/21 Unknown Rx aspirin 81 mg chewable tablet 81 mg PO DAILY 03/08/22 08/16/24 History omeprazole 40 mg capsule,delayed 40 mg PO DAILY #30 caps 03/08/22 Unknown Rx release nifedipine 30 mg tablet,extended 30 mg PO DAILY PCP had him on 60 03/10/23 Unknown Rx release 24 hr mg but bp too low, please change #90 tabs Allergy/AdvReac Type Severity Reaction Status Date / Time latex Allergy Rash Verified 08/17/24 05:56 Family History Mother CVA (cerebral vascular accident) Surgical History History of total right hip replacement History of left heart catheterization (09/11/18) Social History Smoking Status: Current every day smoker tobacco type: cigarettes alcohol intake: former substance use type: does not use caffeine: Yes Type: coffee Vital Signs Vital Signs Vital Signs: 08/17/24 05:55 08/17/24 05:56 08/17/24 06:03 Temperature 98.0 F Temperature Source Oral Pulse Rate 60 61 Respiratory Rate 16 16 Blood Pressure 135/63 H 105/65 128/63 H Blood Pressure Mean 87 78 84 Blood Pressure Source Blood Pressure Position Blood Pressure Location Pulse Ox 97 97 Oxygen Delivery Method Room Air Room Air Room Air 08/17/24 06:09 08/17/24 06:25 08/17/24 06:30 Temperature Temperature Source Pulse Rate 60 60 Respiratory Rate 18 18 Blood Pressure 119/64 119/64 Blood Pressure Mean 82 82 Blood Pressure Source Blood Pressure Position Blood Pressure Location Pulse Ox 94 98 98 Oxygen Delivery Method Room Air Room Air Room Air 08/17/24 06:54 08/17/24 07:00 08/17/24 07:00 Temperature Temperature Source Pulse Rate 66 62 63 Respiratory Rate 18 18 18 Blood Pressure 122/63 H 122/63 H 122/63 H Blood Pressure Mean 82 82 82 Blood Pressure Source Blood Pressure Position Blood Pressure Location Pulse Ox 96 97 97 Oxygen Delivery Method Room Air Room Air Room Air 08/17/24 07:30 08/17/24 08:00 08/17/24 08:00 Temperature Temperature Source Pulse Rate 57 L 63 63 Respiratory Rate 18 16 19 H Blood Pressure 112/84 H 125/63 H 125/63 H Blood Pressure Mean 93 83 83 Blood Pressure Source Blood Pressure Position Blood Pressure Location Pulse Ox 97 98 98 Oxygen Delivery Method Room Air Room Air Room Air 08/17/24 08:12 08/17/24 09:15 Temperature Temperature Source Pulse Rate 79 Respiratory Rate 14 Blood Pressure 105/55 L Blood Pressure Mean 71 Blood Pressure Source Monitor Blood Pressure Position Semi-Fowlers Blood Pressure Location Left Arm Pulse Ox 98 99 Oxygen Delivery Method Room Air Room Air Weight Weight: 60.5 kg Body Mass Index (BMI) 26.0 EEG Results Procedure Details EEG Procedure Details: LEO SINCLAIR is a 79 year old M with a past medical history of , who presents for evaluation of Electroencephalogram on DATE at TIME NIHSS NIHSS Nursing Documentation NIHSS Nursing Documentation: NIHSS: Ischemic Stroke/TIA Start: 08/17/24 08:34 Text: For PCU Patients: NIH and Neuro Check every 4 Status: Active hours, PRN and with change in RN caregiver. Freq: [id number] Protocol: Activity Type Activity Date Activity User E-sign Co-sign Detail Recorded Client Recorded Date Recorded By Document 08/17/24 11:03 [id number] 08/17/24 11:13 08/17/24 11:03 NIH Stroke Scale [NIHSS] A score of 0 is normal or asymptomatic . Total possible score is 42. Inpatient: RN or Physician to activate a stroke alert for onset of new stroke symptoms or with NIHSS increase >/= 3 points. Following change in neurological status, NIHSS will be performed per physician order or more frequently PRN. -1a. Level of Consciousness Alert; keenly responsive -1b. LOC Questions Answers BOTH questions correctly. -1c. LOC Commands Performs both tasks correctly . -2. Best Gaze Normal -3. Visual Partial hemianopia -4. Facial Palsy Normal symmetrical movements -5a. Left Arm No drift; arm holds 90 (or 45 ) degrees for full 10 seconds -5b. Right Arm Drift; arm drifts downward but doesn?t hit the bed -6a. Left Leg No drift; leg holds 30-degree position for full 5 seconds -6b. Right Leg Drift; leg falls by the end of 5- seconds, but does not hit bed -7. Limb Ataxia Present in 1 limb -8. Sensory Mild-to- moderate sensory loss; -9. Best Language Mild-to- moderate aphasia; -10. Dysarthria Normal -11. Extinction and Inattention Visual, tactile , auditory, spatial, or personal inattention -Total 7 Query Text:A score of 0 is normal or asymptomatic. Total possible score is 42 . ED: Notify Physician for NIHSS increase by > / = 3 points. Inpatient: RN or Physician to activate a stroke alert for NIHSS increase of > / = 3 points. NIHSS 1a. Level of Consciousness: Alert; keenly responsive 1b. LOC Questions: Answers BOTH questions correctly. 1c. LOC Commands: Performs both tasks correctly. 2. Best Gaze: Normal 3. Visual: Complete hemianopia 4. Facial Palsy: Minor paralysis (flattened nasolabial fold, asymmetry on smiling) 5a. Left Arm: No drift; arm holds 90 (or 45) degrees for full 10 seconds 5b. Right Arm: No drift; arm holds 90 (or 45) degrees for full 10 seconds 6a. Left Leg: No drift; leg holds 30-degree position for full 5 seconds 6b. Right Leg: No drift; leg holds 30-degree position for full 5 seconds 7. Limb Ataxia: Present in 1 limb 8. Sensory: Lqnl-fj-whhovywv sensory loss; 9. Best Language: Jozw-ol-iqvjiglz aphasia; 10. Dysarthria: Normal 11. Extinction and Inattention: Visual, tactile, auditory, spatial, or personal inattention Total: 7 Physical Exam Const alert, oriented x3 and no apparent distress General Appearance: cooperative, comfortable and well kempt HEENT normocephalic Neuro Neuro Narrative: awake, alert, oriented x3 Mild decreased fluency ? due to vision vs true aphasia. Per family speech is at baseline ? RHH vs quadrantanopsia Right facial droop Motor power 5/5 Sensation: Decreased on the right side RLE ataxia Lab / Micro Data 08/17/24 06:12 08/17/24 06:12 Labs: Laboratory Results - last 24 hr 08/17/24 06:12: WBC 5.6, RBC 3.67 L, Hgb 10.9 L, Hct 33.0 L, MCV 89.9, MCH 29.7, MCHC 33.0, RDW Std Deviation 44.2 H, RDW Coeff of Michael 13.5, Plt Count 204, MPV 9.5, Immature Gran % (Auto) 0.200, Neut % (Auto) 68.6, Lymph % (Auto) 18.4 L, [place] % (Auto) 9.4, Eos % (Auto) 2.0, Baso % (Auto) 1.4 H, Absolute Neuts (auto) 3.8, Absolute Lymphs (auto) 1.02, Nucleated RBC % 0, PT 13.6, INR 1.0, APTT 28.4, Sodium 134, Potassium 4.1, Chloride 101, Carbon Dioxide 23.5, Anion Gap 10, BUN 19, Creatinine 0.85, Estim Creat Clear Calc 53.53, Est GFR (MDRD) Non-Af 88, BUN/Creatinine Ratio 22.5 H, Glucose 127 H, Calcium 8.9, Ethyl Alcohol < 10.1 Imaging Radiology Impression Brain CT 08/17/24 05:55 IMPRESSION: No acute intracranial hemorrhage, mass effect or midline shift. Extensive chronic microvascular ischemic disease. If there is concern for acute infarct, MRI may be obtained. One or more dose reduction techniques were used (e.g., Automated exposure control, adjustment of the mA and/or kV according to patient size, use of iterative reconstruction technique). Reading Location: [facility] Chest X-Ray 08/17/24 05:55 IMPRESSION: As above. Reading Location: [facility] Head/Neck CTA 08/17/24 05:56 IMPRESSION: Limited examination. 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 Partial thrombosis of visualized subclavian artery. Greater than 70 percent stenosis within the left proximal ICA. Approximately 50 percent stenosis within the right proximal ICA. Partial thrombosis of the right subclavian artery, partially visualized. Ray Dennis MD was notified of the critical findings in the ED at 6:33 a.m. Eastern standard time. One or more dose reduction techniques were used (e.g., Automated exposure control, adjustment of the mA and/or kV according to patient size, use of iterative reconstruction technique). Red Alert: Acute basilar artery thrombosis, right vertebral artery thrombosis near the acute.. The critical information above was relayed directly by me by telephone to Ray Dennis on 08/17/2024 at 6:33 am with readback verification. Reading Location: [id number] Brain MRI 08/17/24 08:34 IMPRESSION: 1. 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 Punctate acute infarcts in the right cerebellum. 2. Abnormal posterior circulation flow voids, better evaluated on previous CTA. 3. Mild right mastoid effusion. 4. Additional description as above. Findings in impression #1 were discussed by telephone with Dr. Mann at 9:33 am [facility] on 08/17/2024 Reading Location: [facility] Echocardiogram 08/17/24 08:34 Interpretation Summary The estimated ejection fraction is 65 %. No evidence for diastolic dysfunction. Ordering Physician: Sammy Mann Referring Physician: SERA CASTILLO Performed By: Asha Rae RDCS Active Medications Active Medications Active Medications: Current Medications Generic Name Dose Route Start Last Admin Trade Name Freq PRN Reason Stop Dose Admin Acetaminophen 650 mg 08/17/24 09:00 Acetaminophen 325 Mg Tablet PO Q6H PRN PRN Pain 1-10 Or Fever >100.7 Aspirin 81 mg 08/18/24 08:00 Aspirin 81 Mg Tab.Chew PO BREAKFAST JUAREZ Atorvastatin Calcium 40 mg 08/17/24 10:00 08/17/24 09:07 Atorvastatin Calcium 40 Mg Tablet PO 40 mg DAILY JUAREZ Administration Clopidogrel Bisulfate 75 mg 08/18/24 10:00 Clopidogrel Bisulfate 75 Mg Tablet PO DAILY JUAREZ Enoxaparin Sodium 40 mg 08/17/24 10:00 08/17/24 09:07 Enoxaparin 40 Mg/0.4 Ml Syringe SC 40 mg DAILY JUAREZ Administration Hydralazine HCl 5 mg 08/17/24 09:00 Hydralazine 20 Mg/Ml Vial IV 08/18/24 09:01 Q30M PRN maintain BP parameters with HR <60 Sodium Chloride 100 mls @ 15 mls/hr 08/17/24 10:00 IV .Q6H40M PRN Saline Flush Sodium Chloride 100 mls @ 15 mls/hr 08/17/24 10:00 IV .Q6H40M PRN Additional IVPB Infusion Labetalol HCl 10 - 20 mg 08/17/24 09:00 Labetalol 20mg/4ml Syringe IV 08/18/24 09:01 Q10M PRN PRN maintain BP parameters with HR >/=60 Nifedipine 30 mg 08/18/24 10:00 Nifedipine 30 Mg Tablet PO DAILY [facility] Protocol Pantoprazole Sodium 40 mg 08/17/24 10:00 08/17/24 09:07 Pantoprazole Sodium 40 Mg Tablet PO 40 mg DAILY JUAREZ Administration Ramipril 10 mg 08/18/24 10:00 Ramipril 10 Mg Capsule PO DAILY [facility] Protocol Sodium Chloride 10 - 40 ml 08/17/24 10:00 0.9% Saline Lock 10 Ml Syringe IV UD PRN SALINE FLUSH
--- NOTE | 2024-08-17 13:37 | CASEMGMT ---
Social Work Pt completed PHQ-9 w/SW. Pt scored a 2, with symptoms of feeling down and having little energy. Pt attributes these symptoms to what is going on w/him medically. No resources needed at this time. ANUJ Oneil
--- NOTE | 2024-08-17 13:40 | CASEMGMT ---
Social Work SW met w/pt in regard to discharge plan. SW educated pt to both rehab and SNF levels of care. Pt explained to SW he is very active, spends a lot of time outside, goes up and down the stairs to his man cave multiple times per day, does stair pushups. If rehab is needed, pt would be appropriate for a rehab level of care. SW provided to pt a list via [facility] of acute rehab facilities in network w/pt's insurance, in pt's preferred geographic area and complete w/quality and resource use data. If pt would need rehab, agreeable to referral to [facility] Rehab, [place] w/SW making the referral. SW explained if he improves and can go home, we can change the plan to home and look into home health or outpt therapy. Pt states understanding. Referral made for the inpt rehab unit, therapies are still pending however. SW to follow up tomorrow. ANUJ Oneil
[2024-08-18 02:00] VITALS: BP 165/87; PULSE 65; RESP 15; TEMP 36.1; O2SAT 95
[2024-08-18 03:01] VITALS: BMI 26.0
[2024-08-18 05:33] LABS: Absolute Lymphocyte Count 0.97 X10^3/uL (0.83-4.51); Absolute Neutrophil Count 3.4 X10^3/uL (2.0-7.7); Basophil# 0.05 X10^3/uL; Eosinophil# 0.18 X10^3/uL; Eosinophils% 3.6 % (0-5); Hematocrit 36.5 % (40-54); Hemoglobin 12.3 g/dL (13.0-16.5); Lymphocyte # 0.97 X10^3/ul (0.83-4.51); Lymphocyte % 19.2 % (19-41); Mean Corp Hgb Conc 33.7 g/dL (32-36); Mean Corpuscular Hgb 29.6 pg (27.0-32.0); Mean Corpuscular Volume 87.7 fL (80-94); Mean Platelet Vol. 9.7 fl (6.2-12.0); Monocyte# 0.49 X10^3/uL; Monocyte% 9.7 % (0-10); NRBC Flagged by Analyzer 0 % (0-5); Neutrophil # 3.36 X10^3/uL (2.7-7.7); Neutrophil % 66.3 % (47-70); Platelet Count 231 K/mm3 (150-450); RBC Distribution Width CV 13.4 % (11.6-14.6); RBC Distribution Width SD 43.3 fl (35.1-43.9); Red Blood Count 4.16 M/mm3 (4.6-6.2); White Blood Count 5.1 K/mm3 (4.4-11.0)
[2024-08-18 06:00] VITALS: BP 163/91; PULSE 65; RESP 15; TEMP 36.1; O2SAT 96
[2024-08-18 06:04] LABS: Anion Gap 12 (5-15); BUN 16 mg/dL (4-19); BUN/Creat Ratio 20.2 RATIO (10-20); Calcium,Total 9.3 mg/dL (7.6-11.0); Carbon Dioxide 23.3 mmol/L (21.0-32.0); Chloride 102 mmol/L (98-108); Cholesterol 155 mg/dL (<=200); Creatinine, Serum 0.79 mg/dL (0.70-1.20); EST Glomerular Filtration Rate 90 (>60); Estimated Creatinine Clearance 56.46 ml/min (50-250); Glucose 92 mg/dL (70-99); High Density Lipoprotein 58 mg/dL; Low Density Lipoprotein Calc. 85 mg/dL; Potassium 3.8 mmol/L (3.3-5.1); Sodium Level 138 mmol/L (133-145); Triglycerides 59 mg/dL; Very Low Density Lipoprotein 12 mg/dL (5-40); cholesterol:hdl ratio screen 2.66
--- NOTE | 2024-08-18 06:53 | PCM.PN.HOSP ---
Reason for Visit Reason for Visit: Diagnoses Cerebral infarction, unspecified (08/17/24) Occlusion and stenosis of unspecified carotid artery (08/17/24) Tobacco use (08/17/24) Subjective Subjective Feels well. No new complaints. Objective Data Objective Data Vital Signs: Vital Signs Temp Pulse Resp BP Pulse Ox O2 Del Method 36.1 C L 65 15 165/87 H 95 Room Air 08/18/24 02:00 08/18/24 02:00 08/18/24 02:00 08/18/24 02:00 08/18/24 02:00 08/18/24 02:00 Oxygen Delivery Method Room Air Weight: 60.5 kg Body Mass Index (BMI) 26.0 Intake & Output: Intake and Output for Last 24 Hours 08/16/24 08/17/24 08/18/24 23:59 23:59 23:59 Intake Total 0 / 0 Output Total 1325 / 1625 300 / 300 Balance -1325 / -1625 -300 / -300 Lab / Micro Data 08/18/24 04:50 08/18/24 04:50 Labs: Laboratory Results - last 24 hr 08/18/24 04:50: WBC 5.1, RBC 4.16 L, Hgb 12.3 L, Hct 36.5 L, MCV 87.7, MCH 29.6, MCHC 33.7, RDW Std Deviation 43.3, RDW Coeff of Michael 13.4, Plt Count 231, MPV 9.7, Immature Gran % (Auto) 0.200, Neut % (Auto) 66.3, Lymph % (Auto) 19.2, Josephine % (Auto) 9.7, Eos % (Auto) 3.6, Baso % (Auto) 1.0, Absolute Neuts (auto) 3.4, Absolute Lymphs (auto) 0.97, Nucleated RBC % 0, Sodium 138, Potassium 3.8, Chloride 102, Carbon Dioxide 23.3, Anion Gap 12, BUN 16, Creatinine 0.79, Estim Creat Clear Calc 56.46, Est GFR (MDRD) Non-Af 90, BUN/Creatinine Ratio 20.2 H, Glucose 92, Calcium 9.3, Triglycerides 59, Cholesterol 155, LDL Cholesterol, Calc 85, VLDL Cholesterol 12, HDL Cholesterol 58, Cholesterol/HDL Ratio 2.66 Radiography Diagnostic Testing: Radiology Impression Brain MRI 08/17/24 08:34 IMPRESSION: 1. 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 Punctate acute infarcts in the right cerebellum. 2. Abnormal posterior circulation flow voids, better evaluated on previous CTA. 3. Mild right mastoid effusion. 4. Additional description as above. Findings in impression #1 were discussed by telephone with Dr. Mann at 9:33 am [facility] [[email or web address]] on 08/17/2024 Reading Location: [id number] Echocardiogram 08/17/24 08:34 Interpretation Summary The estimated ejection fraction is 65 %. No evidence for diastolic dysfunction. Ordering Physician: Sammy Mann Referring Physician: SERA CASTILLO Performed By: Asha Rae, CYN Physical Exam Const alert and no apparent distress HEENT head/scalp atraumatic and moist oral mucous membranes Resp normal respiratory effort and no retractions Extremity normal to inspection Neuro Neuro Narrative: ataxia RUE. Sensorium / Orientation: awake and alert Psych affect normal Assessment & Plan Assessment/Plan (1) Acute cerebrovascular accident (CVA): PLAN: Unknown time of onset. Patient not a candidate for TNK nor is he candidate for LVO retrieval. Patient loaded with aspirin and clopidogrel in the emergency room. Will continue with that on the floor. Patient already on 40 mg of atorvastatin. Continue DAPT for 3 months, then ASA only. MRI brain Shows a small acute infarct of left thalamus. Punctate infarcts of the right cerebellum. Echo shows EF of 65%. (2) Carotid stenosis: PLAN: patient was noted to have carotid stenosis more prominent on the left. Recommend the patient follow-up with vascular surgery as outpatient. Patient has vascular surgery at [facility] for his aortic aneurysms. Check carotid duplex Appears to be unrelated with his current stroke symptoms. (3) Tobacco abuse: PLAN: Exam the patient has daughter that smoking is his biggest preventable risk factor. Strongly advised cessation to help prevent further strokes in the future. PLAN: Plan Chronic conditions Aortic aneurysms, thoracic and abdominal. Currently stable. Follow-up with vascular surgery as outpatient. Peripheral arterial disease, patient noted bilateral subclavian artery partial thrombosis. Follow-up with vascular surgery as outpatient. Hypertension: Hold antihypertensives for the next 24 hours to maintain cerebral perfusion pressure. VTE prophylaxis with enoxaparin CODE STATUS: Addressed with the patient. Patient wishes to be full code. Discharge to rehab.
[2024-08-18 07:42] VITALS: BP 156/82; PULSE 65; RESP 16; TEMP 37.1; O2SAT 97
[2024-08-18 09:15] VITALS: O2SAT 97
[2024-08-18] MEDS: Clopidogrel Bisulfate 75 MG Tablet PO (10:43)
[2024-08-18] MEDS: Aspirin 81 MG TAB.CHEW PO (10:43)
[2024-08-18] MEDS: Atorvastatin Calcium 40 MG Tablet PO (10:43)
[2024-08-18] MEDS: Ramipril 10 MG Capsule PO (10:43)
[2024-08-18] MEDS: Pantoprazole Sodium 40 MG Tablet PO (10:43)
[2024-08-18] MEDS: Enoxaparin 40 MG/0.4 ML Syringe SC (10:43)
[2024-08-18] MEDS: NIFEdipine 30 MG Tablet PO (10:43)
--- NOTE | 2024-08-18 12:07 | STROKE.PNOTE ---
Objective Data Objective Data Vital Signs: Vital Signs Temp Pulse Resp BP Pulse Ox O2 Del Method 98.8 F 65 16 156/82 H 97 Room Air 08/18/24 07:42 08/18/24 07:42 08/18/24 07:42 08/18/24 07:42 08/18/24 07:42 08/18/24 07:42 Oxygen Delivery Method Room Air Weight: 60.5 kg Body Mass Index (BMI) 26.0 Intake & Output: Intake and Output for Last 24 Hours 08/16/24 08/17/24 08/18/24 23:59 23:59 23:59 Intake Total 0 / 0 Output Total 1325 / 1625 450 / 450 Balance -1325 / -1625 -450 / -450 Lab / Micro Data 08/18/24 04:50 08/18/24 04:50 Labs: Laboratory Results - last 24 hr 08/18/24 04:50: WBC 5.1, RBC 4.16 L, Hgb 12.3 L, Hct 36.5 L, MCV 87.7, MCH 29.6, MCHC 33.7, RDW Std Deviation 43.3, RDW Coeff of Michael 13.4, Plt Count 231, MPV 9.7, Immature Gran % (Auto) 0.200, Neut % (Auto) 66.3, Lymph % (Auto) 19.2, [place] % (Auto) 9.7, Eos % (Auto) 3.6, Baso % (Auto) 1.0, Absolute Neuts (auto) 3.4, Absolute Lymphs (auto) 0.97, Nucleated RBC % 0, Sodium 138, Potassium 3.8, Chloride 102, Carbon Dioxide 23.3, Anion Gap 12, BUN 16, Creatinine 0.79, Estim Creat Clear Calc 56.46, Est GFR (MDRD) Non-Af 90, BUN/Creatinine Ratio 20.2 H, Glucose 92, Calcium 9.3, Triglycerides 59, Cholesterol 155, LDL Cholesterol, Calc 85, VLDL Cholesterol 12, HDL Cholesterol 58, Cholesterol/HDL Ratio 2.66 Radiography Diagnostic Testing: Radiology Impression Carotid Duplex 08/17/24 08:34 Interpretation Summary Moderate (50-69%) stenosis right extracranial internal carotid. Moderate (50-69%) stenosis left extracranial internal carotid. Patent and antegrade vertebrals bilaterally. Ordering Physician: Sammy Mann Performed By: Alaina Ivey RVT and Student Echocardiogram 08/17/24 08:34 Interpretation Summary The estimated ejection fraction is 65 %. No evidence for diastolic dysfunction. Ordering Physician: Sammy Mann Referring Physician: SERA CASTILLO Performed By: Asha Rae, CYN Physical Exam Neuro Neuro Narrative: awake, alert, oriented x3 speech is fluent CN 2-12 intact Motor power 5/5 Sensation: Decreased on the right side RUE and LE ataxia Subject: Neurology Subjective LEO SINCLAIR is a 79 year old M, who we are seeing in consultation today for advice on the management of stroke and related patient care. He had dizziness while getting up for therapy. No worsening of his symptoms. Assessment and Plan: Stroke Assessment/Plan LEO SINCLAIR is a 79 M with a history of hypertension hyperlipidemia COPD nicotine dependence and CAD presents with right arm, leg weakness, numbness. 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 MRI: Right cerebellar and left thalamic stroke Posterior circulation stroke likely from Large vessel disease ECHO; EF okay Carotid Duplex: 50-69% bilateral stenosis Plan Continue ASA, plavix for 3 months then ASA alone Please obtain HbA1C Can liberalize neurochecks HTN: Gradual normalization of blood pressure HLD: Continue statin Bilateral ICA stenosis; F/up with vascular surgery routinely as out patient once out of acute phase PT, OT evaluation. May need rehab Smoking cessation Stroke education Thanks for consult. Spent 40 min in evaluation and management of this patient.
--- NOTE | 2024-08-18 13:25 | CASEMGMT ---
Addendum entered by Freda Boyd 08/18/24 14:47: Social Work Per physician, pt is ready for discharge today to . SW notified pt and pt's dgt Suzanne. Nursing updated and to arrange discharge time with [facility]. Disposition: [facility] Inpatient Rehab [facility] Original Note: Social Work Inpatient Rehab is able to accept pt. SW met with pt and introduced self and role of SW. SW spoke with pt regarding his work with therapy and recommendations for Inpatient Rehab prior to return home. After extended explaination, pt is agreeable to go to . SW requested permission to call family to discuss discharge plan. Pt requesting SW call pt dgt Suzanne. Phone call to Suzanne who is agreeable to [facility] and states she has spoke with pt regarding this and has encouraged him to agree to [facility]. Physician notified that [facility] has accepted and has a bed available today. Plan: [facility] Inpatient Rehab Unit, when medically ready [facility]
--- NOTE | 2024-08-18 14:29 | DS.PCM_ITS ---
Providers Date of Admission: 08/17/24 Primary Care Physician: Dr. Gardenia Braun MD Consultations 08/17/24 08:34 Consult: Tele-Neurology Routine Consulting Provider: [facility] Reason for Consult: Acute Ischemic Stroke/TIA EMERGENT Consult: No MD Notified: Yes Date Notified: 08/17/24 Time Notified: 07:20 Method of Notification: ED Physician Initiated Nursing Unit Staff Notify [facility] of Tele-Neurology Consult: Yes Reason For Visit: CVA Diagnosis Discharge Diagnosis (1) Acute cerebrovascular accident (CVA): Status: Acute Code(s): I63.9 - Cerebral infarction, unspecified Plan: Unknown time of onset. Patient not a candidate for TNK nor is he candidate for LVO retrieval. Patient loaded with aspirin and clopidogrel in the emergency room. Will continue with that on the floor. Patient already on 40 mg of atorvastatin. Continue DAPT for 3 months, then ASA only. MRI brain Shows a small acute infarct of left thalamus. Punctate infarcts of the right cerebellum. Echo shows EF of 65%. (2) Carotid stenosis: Status: Acute Code(s): I65.29 - Occlusion and stenosis of unspecified carotid artery Plan: patient was noted to have carotid stenosis more prominent on the left. Recommend the patient follow-up with vascular surgery as outpatient. Patient has vascular surgery at [facility] for his aortic aneurysms. Check carotid duplex Appears to be unrelated with his current stroke symptoms. (3) Tobacco abuse: Status: Acute Code(s): Z72.0 - Tobacco use Plan: Exam the patient has daughter that smoking is his biggest preventable risk factor. Strongly advised cessation to help prevent further strokes in the future. Plan Chronic conditions * Aortic aneurysms, thoracic and abdominal. Currently stable. Follow-up with vascular surgery as outpatient. * Peripheral arterial disease, patient noted bilateral subclavian artery partial thrombosis. Follow-up with vascular surgery as outpatient. * Hypertension: Hold antihypertensives for the next 24 hours to maintain cerebral perfusion pressure. VTE prophylaxis with enoxaparin CODE STATUS: Addressed with the patient. Patient wishes to be full code. Discharge to rehab. Medications at Discharge Home Medications ramipril 10 mg capsule 10 mg PO DAILY 04/12/21 atorvastatin 40 mg tablet 40 mg PO DAILY #30 tabs 05/07/21 aspirin 81 mg chewable tablet 81 mg PO DAILY 03/08/22 omeprazole 40 mg capsule,delayed release 40 mg PO DAILY #30 caps 03/08/22 nifedipine 30 mg tablet,extended release 24 hr 30 mg PO DAILY PCP had him on 60 mg but bp too low, please change #90 tabs 03/10/23 clopidogrel 75 mg tablet 75 mg PO DAILY #0 tabs 08/18/24 enoxaparin 40 mg/0.4 mL subcutaneous syringe 40 mg (0.4 mL) subcut DAILY #0 mL 08/18/24 Hospital Course Operations None Procedures 2-D Echocardiogram Summary of Care Provided Minutes Spent on Discharge: 35 Hospital Course: Patient presents with right sided weakness on the . MRI showed acute infarct of the left thalamus and punctate acute infarcts of the right cerebellum. Neurology recommended aspirin and [place] grill for 3 months and then aspirin only. Patient was already on atorvastatin will continue that moving forward. Patient also is a smoker and strongly advised to quit. Patient she does seem motivated to quit. Patient was noted to have a carotid stenosis on CTA as well as ultrasound. As this was not contributing to his current strokes this will not need to be intervened on urgently but patient should follow-up with vascular surgery. Patient was deemed appropriate for rehab and will be discharged there today. Overall the patient's workup and status is currently improved much faster than initial anticipated and patient is being discharged today to acute rehab. Weight / BMI Weight Weight: 60.5 kg Body Mass Index (BMI) 26.0 ABG / Lab / Microbiology Data 08/18/24 04:50 08/18/24 04:50 Laboratory: Laboratory Results - last 24 hr 08/18/24 04:50: WBC 5.1, RBC 4.16 L, Hgb 12.3 L, Hct 36.5 L, MCV 87.7, MCH 29.6, MCHC 33.7, RDW Std Deviation 43.3, RDW Coeff of Michael 13.4, Plt Count 231, MPV 9.7, Immature Gran % (Auto) 0.200, Neut % (Auto) 66.3, Lymph % (Auto) 19.2, Nance % (Auto) 9.7, Eos % (Auto) 3.6, Baso % (Auto) 1.0, Absolute Neuts (auto) 3.4, Absolute Lymphs (auto) 0.97, Nucleated RBC % 0, Sodium 138, Potassium 3.8, Chloride 102, Carbon Dioxide 23.3, Anion Gap 12, BUN 16, Creatinine 0.79, Estim Creat Clear Calc 56.46, Est GFR (MDRD) Non-Af 90, BUN/Creatinine Ratio 20.2 H, Glucose 92, Calcium 9.3, Triglycerides 59, Cholesterol 155, LDL Cholesterol, Calc 85, VLDL Cholesterol 12, HDL Cholesterol 58, Cholesterol/HDL Ratio 2.66 Radiography Diagnostic Testing: Radiology Impression Carotid Duplex 08/17/24 08:34 Interpretation Summary Moderate (50-69%) stenosis right extracranial internal carotid. Moderate (50-69%) stenosis left extracranial internal carotid. Patent and antegrade vertebrals bilaterally. Ordering Physician: Sammy Mann Performed By: Alaina Ivey RVT and Student D/C Instructions Discharge Diet: Low fat / Low cholesterol DC O2, CPAP, BIPAP Needs Home O2 Discharge instructions: No Meaningful Use Info Meaningful Use Meaningful Use Diagnoses (Choose all that apply): Ischemic CVA CVA Therapy Assessed for PT,OT and/or ST?: Yes Ischemic Stroke Antithrombotic order at d/c?: Yes Dx of Atrial fib/flutter?: No Anticoagulant at discharge?: No Reason anticoagulant not ordered: Treatment not Indicated Statin Dosing Therapy Reference: STATIN DOSE THERAPY REFERENCE: * Patients > 75 years receive moderate or high dose statin therapy. * Patients 75 years or YOUNGER should receive HIGH intensity statin dose unless contraindicated. You will be required to document reason for non-treatment if statin daily dose does not meet guidelines. HIGH DOSE STATIN THERAPY DAILY Atorvastatin > than or = to 40 mg Rosuvastatin > than or = to 20 mg Amlodipine + Atorvastatin > than or = to 2.5/40 mg Ezetimibe + Simvastatin 10/80 mg Simvastatin 80mg Statins at discharge?: Yes Primary Dx Acute Ischemic CVA?: Yes IV thrombolytic ordered during stay?: No Reason IV thrombolytic not ordered: Treatment not Indicated Discharge Plan Admission Admit Date/Time: 08/17/24 07:18 Primary Reason for Your Visit: CVA Attending Provider: Sammy Mann Primary Care Provider: Gardenia Braun Consulting Providers: Alec Goyal; Beka Harmon; Pavithra Rodriguez; Nissa Daily; Jocelyn Farley; Riley Justin; Halina Marie; Devan Hung; Almas Huerta; Wilton Curiel; Yaneth Mcelroy; Robert Quintero; Maria T Culp; Matthew Carolina; Cisco Boyle; Jame Vogt; Danny Carrillo; Clovis Beltre; Linda Lemon; Deon Sky Instructions Additional Instructions / Restrictions: Follow-up neurology as outpatient. [facility] [place] [facility] [phone]. [facility] [place] [phone]. [facility] [place] [phone]. [facility] [phone]. [facility] [place] [phone] Discharge Orders/Prescriptions Prescriptions: New clopidogrel 75 mg Tablet 75 mg PO DAILY Qty: 0 0RF enoxaparin 40 mg/0.4 mL Syringe 40 mg subcut DAILY Qty: 0 0RF Rx Instructions: Continue while in rehab and then discontinue when discharged from rehab. Continued ramipril 10 mg capsule 10 mg PO DAILY aspirin 81 mg Tablet,Chewable 81 mg PO DAILY omeprazole 40 mg capsule,delayed release(DR/EC) 40 mg PO DAILY Qty: 30 0RF atorvastatin 40 mg tablet 40 mg PO DAILY Qty: 30 11RF nifedipine 30 mg tablet extended release 24hr 30 mg PO DAILY Qty: 90 3RF Referrals / Follow Up: Gardenia Braun MD [Primary Care Provider] - Within 2 Weeks Sammy Marina MD [Med Staff - Active Staff] - Within 1 Month Disposition Disposition (needs filled in before D/C Order can be placed): Inpatient Rehab Unit/Facility Charges/Coding Visit Charges Inpatient E&M: 01118 Disch Hosp >30min
[2024-08-18 14:37] VITALS: BP 141/80; PULSE 68; RESP 16; TEMP 36.8; O2SAT 98
--- NOTE | 2024-08-18 14:59 | NURSING ---
Report called to Michelle in the Inpatient Rehab Unit.
== END 2024-08-18 15:07 | DRG 65 ==
LOC: ED 07:12 → ICU 08:07
PROVIDERS: Emergency Provider Emergency Medicine; PCP Internal Medicine
DX: I63.9 Cerebral infarction, unspecified (principal); G81.91 Hemiplegia, unspecified affecting right dominant side; J44.9 Chronic obstructive pulmonary disease, unspecified; I71.20 Thoracic aortic aneurysm, without rupture, unspecified; I10 Essential (primary) hypertension; F17.210 Nicotine dependence, cigarettes, uncomplicated; I25.10 Atherosclerotic heart disease of native coronary artery without angina pectoris; I73.9 Peripheral vascular disease, unspecified
CPT/HCPCS: 36415; 70450; 70496; 70498; 70551; 71045; 80048; 80061; 82077; 85025; 85610; 85730; 92523; 92610; 93005; 93306; 93880; 94762; 97112; 97116; 97163; 97166; 97530; 99285; 99406; Q9967

== ENCOUNTER 2024-08-18 15:22 | Inpatient (IN) | payer MEDICARE, OTHER, SELFPAY ==
[2024-08-18 15:42] VITALS: BP 118/70; PULSE 67; RESP 15; TEMP 37; O2SAT 98; BMI 20.9
[2024-08-18 16:06] VITALS: BMI 20.9
[2024-08-18 18:00] VITALS: BP 118/70; PULSE 67; RESP 16; TEMP 37; O2SAT 96
[2024-08-18] MEDS: QUEtiapine 25 MG Tablet PO (18:34)
[2024-08-18] MEDS: Menthol/Lanolin/Calamine/Znox 113 GM Tube 1 APPLIC TOPICAL (20:41)
[2024-08-18] MEDS: Senna/Docusate Sodium 1 Tablet 2 TABLET PO (20:41)
[2024-08-18] MEDS: Atorvastatin Calcium 40 MG Tablet PO (20:41)
[2024-08-18] MEDS: 0.9% Saline Lock 10 ML Syringe IV (20:43)
[2024-08-19] MEDS: Enoxaparin 40 MG/0.4 ML Syringe SC (05:43)
[2024-08-19] MEDS: Menthol/Lanolin/Calamine/Znox 113 GM Tube 1 APPLIC TOPICAL ×2 (05:43→20:02)
[2024-08-19 06:00] VITALS: BP 133/76; PULSE 68; RESP 17; TEMP 36.6; O2SAT 96
[2024-08-19 06:06] LABS: Absolute Lymphocyte Count 1.41 X10^3/uL (0.83-4.51); Absolute Neutrophil Count 2.9 X10^3/uL (2.0-7.7); Basophil# 0.05 X10^3/uL; Eosinophil# 0.14 X10^3/uL; Eosinophils% 2.7 % (0-5); Hematocrit 37.5 % (40-54); Hemoglobin 12.6 g/dL (13.0-16.5); Lymphocyte # 1.41 X10^3/ul (0.83-4.51); Lymphocyte % 26.8 % (19-41); Mean Corp Hgb Conc 33.6 g/dL (32-36); Mean Corpuscular Hgb 29.8 pg (27.0-32.0); Mean Corpuscular Volume 88.7 fL (80-94); Mean Platelet Vol. 9.7 fl (6.2-12.0); Monocyte# 0.71 X10^3/uL; Monocyte% 13.5 % (0-10); NRBC Flagged by Analyzer 0 % (0-5); Neutrophil # 2.94 X10^3/uL (2.7-7.7); Neutrophil % 55.8 % (47-70); Platelet Count 227 K/mm3 (150-450); RBC Distribution Width CV 13.5 % (11.6-14.6); RBC Distribution Width SD 43.7 fl (35.1-43.9); Red Blood Count 4.23 M/mm3 (4.6-6.2); White Blood Count 5.3 K/mm3 (4.4-11.0)
[2024-08-19 06:43] LABS: ALB/GLOB Ratio 1.6 RATIO (0.9-2.4); AST(SGOT) 20 U/L (<=37); Alanine Aminotransfer ALT/SGPT 9 U/L (<=46); Albumin, Serum 3.8 g/dL (3.4-4.8); Alkaline Phosphatase 86 U/L (40-129); Anion Gap 12 (5-15); BUN 22 mg/dL (4-19); BUN/Creat Ratio 22.7 RATIO (10-20); Calcium,Total 9.3 mg/dL (7.6-11.0); Carbon Dioxide 23.5 mmol/L (21.0-32.0); Chloride 102 mmol/L (98-108); Creatinine, Serum 0.99 mg/dL (0.70-1.20); EST Glomerular Filtration Rate 77 (>60); Estimated Creatinine Clearance 51.09 ml/min (50-250); Globulin 2.4 g/dL (2.2-4.2); Glucose 99 mg/dL (70-99); Phosphorus 3.9 mg/dL (2.7-4.5); Potassium 4.1 mmol/L (3.3-5.1); Protein, Total 6.2 g/dL (5.9-8.4); Sodium Level 138 mmol/L (133-145); Total Bilirubin 0.48 mg/dL (0.00-1.30)
--- NOTE | 2024-08-19 08:07 | EX.PCM.HP.RE ---
[facility] - General General Date of Admission: 08/18/24 Date of Service: 08/19/24 Chief Complaint: Post Stroke Debility HPI Narrative LEO SINCLAIR, is a 79 YO M with a past medical history of prothrombin gene mutation, tobacco dependence, coronary artery disease, thoracic aortic aneurysm, hyperlipidemia, aneurysm of the right subclavian artery, Wernicke Korsakoff syndrome, remote alcoholism, depression, COPD, hypertension, diverticulosis, GERD and an abdominal aortic aneurysm without rupture (he follows at [facility] for aneurysms). He presented to the ED at [facility] on 08/17/2024 complaining of right-sided weakness. He was also having difficulty with ambulation. The last known well was approximately 8:30 PM the previous day. A stat noncontrast CT brain showed extensive periventricular white matter changes with mildly prominent ventricles and sulci. There was also bifrontal volume loss noted. There was no definitive acute intracranial hemorrhage, mass effect or midline shift. CTA of the head and neck showed acute basilar artery thrombosis, right vertebral artery occlusion, partial thrombosis of the right subclavian artery, greater than 70% stenosis within the left proximal ICA and approximately 50% stenosis in the right proximal ICA. Tele-neurology was consulted. [facility] teleneurology was consulted. The neurologist did not feel the patient would need transfer to [facility] for intervention. The patient was outside the window for TNK. Neurology recommended follow-up with vascular surgery as an outpatient for left carotid stenosis. He is chronically followed at [facility] for the aneurysms. He was admitted to the hospital on the hospitalist service. He was loaded with aspirin and clopidogrel in the emergency department. He was already taking atorvastatin for hyperlipidemia and this was continued. MRI of the brain, carotid ultrasound, echocardiogram and therapy evaluation was ordered. The MRI showed a small acute infarct in the left thalamus and punctate acute infarcts in the right cerebellum. The carotid ultrasound showed 50 to 69% stenosis of the right and the left extracranial internal carotid arteries. Echocardiogram showed an ejection fraction of 65% with no diastolic dysfunction and no regional wall motion abnormalities. The right ventricle was normal. The left and right atria were of normal size with no Doppler evidence of an atrial septal defect. There was no significant valvular heart disease. He was seen by PT/OT/ST and acute rehab was recommended at [place]. He tells me that prior to the stroke he was independent and driving. He has a walker but, he tells me he doesn't use it. He lives with his in a 1 story house with a basement. He does spend time in the basement. He still smokes. Can not really tell me how much he smokes. He states that some days he does not smoke at all. Has 2 daughters. Afebrile VSS -the blood pressure has ranged from 118/72 133/76 since he arrived on rehab. Heart rate has ranged from 67-68. Maintaining appropriate oxygen saturation on RA-96 to 98% Oral intake - FOOD he ate 75 to 100% of his supper yesterday. He ate 25 to 49% of his breakfast but tells me he is not generally a breakfast eater. FLUIDS MM are dry and oral fluid intake since arriving on rehab has been poor. Discussed with nursing -he was agitated and restless at admission to rehab. He thought he was in a NH and he wanted to leave. He got one dose of Seroquel 25 mg and calmed down significantly. Slept well last night and he is appropriate with me this morning. Reviewed the THERAPY notes from the other side of the hospital. Medication list reviewed. He last saw vascular surgery at [facility], Dr. Hugh Choi, in August of 2023. He was told to get a repeat US of the abd aorta in 6 months........we have no documentation to say this was done. All lab drawn this morning was personally reviewed. Hemoglobin today is 12.6. It was 10.9 at admission to the hospital and the hemoglobin prior to that was in February 2022 and it was low at 12.7. He is normocytic and normochromic. RDW is normal. Platelets are within normal limits. The sodium is 138 and the potassium is 4.1. Serum bicarb is normal. The BUN is 22 with a creatinine of 0.99 which is up from 0.85 at admission to the hospital. GFR is 77. Calcium is normal. Phosphorus is normal and the magnesium is 2. LFTs are normal. Total cholesterol was 155 at admission on 40 mg of atorvastatin and the LDL calculated was 85. The HDL was 58 and triglycerides were 59. I nspoke with his and dtr. He has had a declining memory for at least 5 years. He has been diagnosed with Wernicke's encephalopathy in the past. He is supposed to be taking Celexa but, he won't take it. He gets very anxious at times. HE can also get agitated at times but, has not been physically aggressive. He sleeps in the basement in a recliner for the past few years.....his thinks he sleeps pretty well. He eats less than he used to but, his wt has been stable for the past couple years. His is crippled and can not make it to the hospital but, she would like us to call her for the TEAM meeting. His dtr is going to try and be present in the room for his TEAM meeting. We discussed having to use Seroquel for behavior last evening and they are OK with this if needed. We are going to continue with PRN Seroquel and monitor for agitation/aggression over the next couple days. EKG showed a normal QTI today. Gricelda tells me that he has not had any alcohol in 10 years. They were very pleasant and informative and thanked me for calling them. [facility] Medical History (Updated 08/19/24 @ 17:[address] Elen Muñoz, ) Carotid stenosis Wernickes encephalopathy Cognitive dysfunction History of depression History of alcoholism Diverticulosis GERD (gastroesophageal reflux disease) HTN (hypertension) Hyperlipidemia Tobacco abuse Prothrombin gene mutation Aortic mural thrombus Nonobstructive atherosclerosis of coronary artery Thoracic aortic aneurysm (TAA) 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) Alcoholism Major depression COPD (chronic obstructive pulmonary disease) AAA (abdominal aortic aneurysm) without rupture Home Medications ?Medication ?Instructions ?Recorded ?Last Taken ?Type ramipril 10 mg capsule 10 mg PO DAILY BP 04/12/21 08/18/24 History aspirin 81 mg chewable tablet 81 mg PO DAILY heart health 03/08/22 08/18/24 History omeprazole 40 mg capsule,delayed 40 mg PO DAILY reflux #30 caps 03/08/22 08/18/24 Rx release nifedipine 30 mg tablet,extended 30 mg PO DAILY BP #90 tabs 03/10/23 08/18/24 Rx release 24 hr atorvastatin 40 mg tablet 40 mg PO QHS cholesteol 08/18/24 08/17/24 History clopidogrel 75 mg tablet 75 mg PO DAILY anticoag #0 tabs 08/18/24 08/18/24 Rx enoxaparin 40 mg/0.4 mL 40 mg subcut DAILY coag 08/18/24 08/18/24 History subcutaneous syringe Allergy/AdvReac Type Severity Reaction Status Date / Time latex Allergy Rash Verified 08/17/24 05:56 Family History Mother CVA (cerebral vascular accident) Surgical History History of total right hip replacement History of left heart catheterization (09/11/18) Social History (Updated 08/19/24 @ 10:[address] Elen Muñoz DO) household members: spouse number of children: 2 current occupational status: retired Smoking Status: Current every day smoker tobacco type: cigarettes alcohol intake: former details: He denies but, the last progress note from [facility] from August of 2023 says yes substance use type: does not use caffeine: Yes Type: coffee ROS Review of Systems ROS Unobtainable: other Details: He is having some difficulty answering my questions and I have to repeat them. Also having to repeat commands and give voice and visual cues. ; Denies due to encephalopathy, due to endotracheal tube, due to mental condition or due to mental status Constitutional Constitutional: Reports weakness; Denies anorexia, change in weight, chills, difficulty sleeping, fatigue, fever(s), night sweats, weight gain or weight loss Eyes Eyes: Denies blurry vision, change in vision, discharge from eye(s), eye pain or loss of vision ENT HEENT: Denies abnormal hearing, dysphagia, headache(s), hearing loss, nasal congestion or sore throat Cardiovascular Cardiovascular: Reports weakness in extremities; Denies chest pain, dyspnea on exertion, edema, lightheadedness, orthopnea, palpitations, paroxysmal nocturnal dyspnea, racing heartbeat or syncope Respiratory/Chest Respiratory/Chest: Reports wheezing; Denies cough, dyspnea, portable oxygen @ home, productive cough, shortness of breath at rest or shortness of breath with exertion Gastrointestinal Gastrointestinal: Denies abdominal pain, constipation, diarrhea, dyspepsia, hematemesis, hematochezia, nausea, odynophagia or vomiting Genitourinary Genitourinary: Denies dysuria, hematuria, nocturia, urinary frequency, urinary hesitancy, urinary incontinence or urinary urgency Musculoskeletal Musculoskeletal: Denies back pain, joint pain, joint swelling or neck pain Neurologic Neurologic: Reports confusion, disequilibrium, focal weakness and paresthesias; Denies dizziness, headache(s), seizures, tremor(s) or vertigo Psychiatric Psychiatric: Denies anxiety, depression, homicidal ideation or suicidal ideation Endocrine Endocrinology: Denies change in body appearance, polydipsia or polyuria Hematologic/Lymphatic Hematologic/Lymphatic: Reports easy bleeding and easy bruising; Denies lymphadenopathy Allergic/Immunologic Allergic/Immunologic: Denies rhinitis, eczemia or asthma Vital Signs Vital Signs Vital Signs: 08/18/24 15:42 08/18/24 16:27 08/18/24 18:00 Temperature 98.6 F 98.6 F Temperature Source Temporal Temporal Pulse Rate 67 67 Respiratory Rate 15 16 Respiratory Effort Normal Non-Labored Respiratory Depth Normal Respiratory Pattern Normal Blood Pressure 118/70 118/70 Blood Pressure Mean 86 86 Blood Pressure Source Monitor Monitor Blood Pressure Position Semi-Fowlers Semi-Fowlers Blood Pressure Location Left Arm Left Arm Pulse Ox 98 96 Oxygen Delivery Method Room Air Room Air Room Air 08/18/24 20:58 08/19/24 06:00 Temperature 97.8 F Temperature Source Temporal Pulse Rate 68 Respiratory Rate 17 Respiratory Effort Normal Non-Labored Respiratory Depth Normal Respiratory Pattern Normal Blood Pressure 133/76 H Blood Pressure Mean 95 Blood Pressure Source Monitor Blood Pressure Position Blood Pressure Location Pulse Ox 96 Oxygen Delivery Method Room Air Room Air Weight Weight: 133 lb 13.129 oz Body Mass Index (BMI) 20.9 Indicators for Scoring Admitted with or Primary Diagnosis of CVA/Stroke: Yes Hx of CVA/Stroke: Yes Modified Benedict Score MRS Score at time of Evaluation: 3-Moderate disability NIHSS NIHSS 1a. Level of Consciousness: Alert; keenly responsive 1b. LOC Questions: Answers BOTH questions correctly. 1c. LOC Commands: Performs both tasks correctly. 2. Best Gaze: Normal 3. Visual: No visual loss 4. Facial Palsy: Minor paralysis (flattened nasolabial fold, asymmetry on smiling) 5a. Left Arm: No drift; arm holds 90 (or 45) degrees for full 10 seconds 5b. Right Arm: No drift; arm holds 90 (or 45) degrees for full 10 seconds 6a. Left Leg: No drift; leg holds 30-degree position for full 5 seconds 6b. Right Leg: No drift; leg holds 30-degree position for full 5 seconds 7. Limb Ataxia: Present in 2 limbs (mild in the RUE and the RLE) 8. Sensory: [id number] sensory loss; (Right face, right arm and right leg) 9. Best Language: No aphasia; normal 10. Dysarthria: [id number] dysarthria; 11. Extinction and Inattention: No abnormality Total: 5 Stroke Questions Stroke Team Activated: No Physical Exam Const alert and average body habitus Constitutional Narrative: Oriented to person, month and knows he is in a hospital. Could not tell me why he is int the hospital. Could not tell me which hospital. He was cooperative with me and pleasant but, at arrival to rehab he was very agitated and restless and trying to leave. He had 1 dose os Seroquel 25 mg and he has been fine since then. Family may have contributed to the agitation. I was told by staff that family was yelling at him telling him that he had to stay here. General Appearance: cooperative and well kempt HEENT HEENT Narrative: MM are dry. The tongue deviates to the left. the tongue is coated but, he denies mouth pain and painful swallowing. Eyes PERRL, EOMs intact bilaterally, conjunctivae normal and no scleral icterus Eyes Narrative: No DC from the eyes and no mattering of the eyelashes. No nystagmus General Eye: normal appearance of both eyes and normal light reflex Neck supple, no JVD, No nodes and no carotid bruits General: trachea midline Chest Chest: symmetrical chest wall rise Resp normal respiratory effort Resp Narrative: Not tachypneic. No accessory muscle use. He has diffuse mild exp wheezing. Denies a craving for cigarettes. Can tell really tell me how much he smokes. Not coughing with deep breathing. No pursed lip breathing. Effort and Inspection: able to speak in complete sentences Cardio regular rate, regular rhythm, S1 normal heart sound, S2 normal heart sound, no murmurs, no rub, no gallops and no JVD Cardio Narrative: PMI is displaced medial and inferior.......more likely than not due to hyperinflation due to COPD. No ectopy. No chest pain, no palpitations and no complaints of shortness of breath. GI normal to inspection, nondistended, normoactive bowel sounds, soft to palpation and non-tender GI Narrative: I do not hear any bruits in the and but, the abd aorta feels dilated and I can feel it pulsate through the abd wall.......he is thin. NO masses. No guarding with palpation. no CVA tenderness Extremity no calf tenderness and no pedal edema Skin no wounds Skin Narrative: no rashes. The skin is dry. General Skin Exam: no breakdown Neuro Neuro Narrative: He has a R facial droop that improves with showing me his teeth. He has decreased sensation in the R face, RUE and the RLE. Mild ataxia with the RUE and the R LE. NO drift in any extremity. No extinction, no visual field cuts........sometimes difficult to get him to follow my commands and the exam is taking longer than usual because I have to keep cuing. him. Speech is slurred. I did not do a Romberg or ambulate him. will observe when he up with PT. Not always able to answer simple questions and says I don't know fairly often. Seems better with remote hx than recent hx. He was able to tell me his age and the month. No tremors. No rigidity. He has a history of Warnicke's encephalopathy secondary to chronic alcohol abuse and we are not familiar with his baseline for the past few years. Psych cooperative, denies hallucinations and denies suicidal ideation Psych Narrative: Thought processing is slow and sometimes forgets what I asked him. He is a little restless/fidgety in the bed but, not agitated. Not always making good eye contact with me and I have to keep telling me to look at me. Poor historian. Tells me that he is depressed.........because his first . He tells me that she in a car accident 50 years ago. He also tells me that he has been to his current 50 years. Denies insomnia and tells me that there has been no change in appetite recently. Appearance: appropriate; Negative for unkempt Activity / Motor Behavior: fidgetting Results Lab / Micro Data 08/19/24 05:34 08/19/24 05:34 Labs: Laboratory Results - last 24 hr 08/19/24 05:34: WBC 5.3, RBC 4.23 L, Hgb 12.6 L, Hct 37.5 L, MCV 88.7, MCH 29.8, MCHC 33.6, RDW Std Deviation 43.7, RDW Coeff of Michael 13.5, Plt Count 227, MPV 9.7, Immature Gran % (Auto) 0.200, Neut % (Auto) 55.8, Lymph % (Auto) 26.8, [place] % (Auto) 13.5 H, Eos % (Auto) 2.7, Baso % (Auto) 1.0, Absolute Neuts (auto) 2.9, Absolute Lymphs (auto) 1.41, Nucleated RBC % 0, Sodium 138, Potassium 4.1, Chloride 102, Carbon Dioxide 23.5, Anion Gap 12, BUN 22 H, Creatinine 0.99, Estim Creat Clear Calc 51.09, Est GFR (MDRD) Non-Af 77, BUN/Creatinine Ratio 22.7 H, Glucose 99, Calcium 9.3, Phosphorus 3.9, Magnesium 2.0, Total Bilirubin 0.48, AST 20, ALT 9, Alkaline Phosphatase 86, Total Protein 6.2, Albumin 3.8, Globulin 2.4, Albumin/Globulin Ratio 1.6 Assessment & Plan Assessment/Plan (1) Physical debility: (2) Acute cerebrovascular accident (CVA): PLAN: The initial MRI that was done on the day he presented to the emergency room, less than 24 hours after last known well, showed a small acute infarct in the left thalamus. There were also punctate acute infarcts in the right cerebellum. I suspect a repeat MRI would show a larger area of infarction since he has R facial droop, tongue deviates to the R, he has weakness and numbness in the face, R arm and R leg and he has ataxia with the RE and the RLE. 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 (3) Cognitive dysfunction: PLAN: He had baseline cognitive dysfunction for 3-5 years prior to the stroke. He was still driving. I suspect the cognition is worse since the stroke and will instruct him and his family he should not drive. (4) Wernickes encephalopathy: (5) History of alcoholism: PLAN: He quit drinking 10 years prior to stroke in 2024. (6) Oropharyngeal dysphagia: (7) Right hemiparesis: (8) Paresthesias: PLAN: Right face, right arm and right leg. (9) Ataxia: PLAN: Right upper extremity and right lower extremity. (10) Facial droop: PLAN: Right side. (11) Normochromic normocytic anemia: PLAN: With decreased iron stores. (12) History of depression: PLAN: Noncompliant with Celexa. (13) COPD (chronic obstructive pulmonary disease): QUALIFIERS: COPD type: unspecified COPD Qualified Code(s): J44.9 - Chronic obstructive pulmonary disease, unspecified PLAN: Wheezing at presentation to rehab. (14) HTN (hypertension): QUALIFIERS: Hypertension type: primary hypertension Qualified Code(s): I10 - Essential (primary) hypertension (15) Hyperlipidemia: QUALIFIERS: Hyperlipidemia type: unspecified Qualified Code(s): E78.5 - Hyperlipidemia, unspecified (16) Tobacco abuse: PLAN: Continues to smoke. (17) Prothrombin gene mutation: PLAN: No hx of VTE that he knows of. Arterial thrombosis with prothrombin gene mutation is uncommon.. He would be at high risk for chronic anticoagulation due to cognitive dysfunction, poor safety awareness, increased impulsivity and dysequilibrium. Anticoagulation not indicated at this time. (18) Nonobstructive atherosclerosis of coronary artery: (19) Thoracic aortic aneurysm (TAA): QUALIFIERS: Thoracic aorta location: unspecified Presence of rupture: without rupture Qualified Code(s): I71.20 - Thoracic aortic aneurysm, without rupture, unspecified PLAN: He is followed by vascular surgery at [facility]. He was to have a US done in February but, I do not see that this has been done. (20) AAA (abdominal aortic aneurysm) without rupture: QUALIFIERS: Abdominal aorta location: unspecified Qualified Code(s): I71.40 - Abdominal aortic aneurysm, without rupture, unspecified (21) Aneurysm of right subclavian artery: PLAN: With thrombosis. (22) Diverticulosis: (23) GERD (gastroesophageal reflux disease): QUALIFIERS: Esophagitis presence: without esophagitis Qualified Code(s): K21.9 - Gastro-esophageal reflux disease without esophagitis PLAN: Continue pantoprazole (24) Carotid stenosis: QUALIFIERS: Laterality: bilateral Qualified Code(s): I65.23 - Occlusion and stenosis of bilateral carotid arteries PLAN: Carotid ultrasound in August 2024 shows 50 to 69% stenosis of both internal carotid arteries in the neck. Will need follow-up with vascular surgery going forward. (25) Psychomotor agitation: PLAN: Plan PLAN PT for gait stability OT for ADL's ST for evaluation Analgesics as needed Bowel protocol Fall precautions Assess for Anxiety/Depression - start an antidepressant. Will use Sertraline rather than Celexa. GI prophylaxis -pantoprazole DVT prophylaxis with enoxaparin 40 mg subcu daily and SCDs. Patient is at increased risk for VTE secondary to immobility and prothrombin gene mutation. Follow up with PCP, vascular surgery, neurology and cardiology following DC from [facility] AM lab including CMP, CBC, Mag and Phos -all personally reviewed. Check iron studies, hemoglobin A1c, B12, folate and TSH. Continue Seroquel p.o. as needed and Haldol IM as needed for severe agitation. Will continue to monitor for aggression/agitation over the next 48 hours and if we have to continue giving sedation we will likely start him on scheduled doses of low-dose Seroquel or Risperdal. I discussed this with his daughter Suzanne and his Gricelda and they are okay with this plan. Increase atorvastatin to 80 mg since the calculated LDL on 40 mg of atorvastatin was 85 and the goal for LDL is to be 70 or less. The HDL was good at 58. Triglycerides are normal. 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 Charges/Coding Visit Charges Inpatient E&M: 07337 Init Hosp L3
[2024-08-19] MEDS: NIFEdipine 30 MG Tablet PO (09:09)
[2024-08-19] MEDS: Aspirin 81 MG TAB.CHEW PO (09:09)
[2024-08-19] MEDS: Pantoprazole Sodium 40 MG Tablet PO (09:09)
[2024-08-19] MEDS: Clopidogrel Bisulfate 75 MG Tablet PO (09:09)
[2024-08-19] MEDS: Ramipril 10 MG Capsule PO (09:09)
[2024-08-19] MEDS: Senna/Docusate Sodium 1 Tablet 2 TABLET PO ×2 (09:09→20:01)
[2024-08-19 10:00] VITALS: BP 102/51; PULSE 62
--- NOTE | 2024-08-19 10:34 | EKG12_ITS ---
Test Reason : CAD Blood Pressure : */* mmHG Vent. Rate : 64 BPM Atrial Rate : 64 BPM P-R Int : 144 ms QRS Dur : 86 ms QT Int : 404 ms P-R-T Axes : 74 -54 67 degrees QTcB Int : 416 ms Normal sinus rhythm with sinus arrhythmia Left anterior fascicular block Abnormal ECG Confirmed by NADEGE WILDER, FELISHA ([id number]), editorial director DENNISE SR ([id number]) on 08/23/2024 10:51:29 AM Referred By: Elen Muñoz Confirmed By: FELISHA LIGHT MD
[2024-08-19] MEDS: Fluticasone/Salmeterol 232-14 Inhaler 1 PUFF INHALATION ×2 (10:57→20:02)
[2024-08-19] MEDS: 0.9% Saline Lock 10 ML Syringe IV (11:01)
[2024-08-19 11:17] LABS: Hemoglobin A1c 5.9 % (<=5.6)
[2024-08-19 13:30] LABS: Ferritin 25 ng/mL (37-417); Vitamin B12 1068 pg/mL (180-914)
[2024-08-19 14:00] VITALS: BP 126/68; PULSE 65
[2024-08-19 14:08] VITALS: BMI 20.9
--- NOTE | 2024-08-19 16:26 | CHAPLAIN ---
Type of Pastoral Visit _x__ Initial Visit ___ Follow-up Visit ___ On-call Visit ___ General Patient Visit ___ Spiritual Assessment ___ Family Conference ___ Bereavement ___ Rapid Response ___ Code Blue ___ Other (describe below) Pastoral Care Referral From _x__ Patient ___ Family ___ Nurse ___ Physician ___ Audiovisual Technician ___ Abstract Writer ___ Other (describe below) Sacrament/Intervention _x__ Active listening ___ Anointing ___ Synagogue ___ Bereavement ___ Communion ___ Sirisha exploration ___ _x__ Life review ___ Prayer ___ Reconciliation ___ Sacrament of Sick ___ Supportive presence ___ Wedding ___ Other (describe below) Pastoral Comments patient states that he is doing pretty well and will be here for a couple more days to get what he needs before going home; pt gives some life review and does not seek further help or support
--- NOTE | 2024-08-19 17:37 | PCM.RU.PYE ---
Admission Information Primary Diagnosis:: Post stroke debility Status Changes from Prescreening?: No changes Identified Actual Problem List:: Cognitve Impr/Memory Loss, Depression, Mobility Impaired, Self Care Deficit, Know.Dfct of Medicaitons, BP, Hypertension and Alteration-Leisure Activ. Potential Problem List:: DVT, Bleeding, Infection, UTI, Aspiration, Falls, Skin Integrity and Depression Risk of Complications DVT: LMWH and BRENDA Hose Bleeding: Monitor Lab Values, Nursing to Teach Precautions for anti-coagulation therapy., Wound, if applicable, to be assessed every shift. and Stroke patients assessed for lethargy or change in status. Infection: Clinical Staff to Monitor for S/S of infection: and S/S of infection include fever, redness, warmth, etc. Urinary Tract Infection: Monitor for frequency, burning, discomfort, or incontinence. and Nursing will obtain urine sample for urinalysis and C&S when ordered. Aspiration: Clinical staff will monitor for coughing, drooling, congestion., Speech will evaluate swallowing and dsyphasia. and Nursing will monitor patient swallowing during meals. Falls: Patient will be evaluated for Fall Precautions and Patient will be placed on Fall Precautions as indicated per protocol. Skin Breakdown: Nursing will assess skin daily using assessment tool. and Nursing will place on Skin Breakdown Precautions as indicated. Pain: Clinical staff will assess patient's pain level per protocol., Medications will be given, if needed, and the pain level reassessed. and Other methods: Massage, distraction, decrease stimulus, etc. used PRN. Plan of Care Patient requires physician specializing in physical medicine and rehab oversight to provide close medical supervision of rehab issues including: Pain Management, Sleep Problems, Bowel and Bladder, Medical and co-morbidity Management, DVT prophylaxis, Rehabilitation Leadership and Coordination of treatment team Patient needs Physical Therapy: For a minimum of 1 hour and At least 5 out of 7 days Patient needs Physical Therapy to improve:: Mobility, Strengthening, Transfers, Stretching, ROM, Endurance, Stairs, Gait and Balance Patient needs Occupational Therapy: For a minimum of 1 hour and At least 5 out of 7 days Patient needs Occupational Therapy to improve ADL's incl.: Eating, Grooming, Bathing, Dressing, Toileting, Toilet transfers, Community Reintegration, Higher functioning activities, Household tasks, Adaptive Equipment, Splinting and Other activities as determined Patient requires speech therapy: For a minimum of 1 hour and At least 5 out of 7 days Patient requires speech therapy for: Swallowing, Cognition, Language Skills and Compensatory Strategies Patient requires 24/7 Rehabilitation Nursing for: Pain Issues, Identifying and preventing risk factors, Monitoring and reporting current medical conditions, Assisting with ambulation, transfer, and all ADL's, Teaching patients about disease process and medications, Family teaching, Providing safe environment, Bowel and Bladder Issues, Skin integrity and Medication Management Patient needs Maintenance Advisor/ Case Management for: Discharge Planning, Arranging Home Equipment or Services and Family Interventions Patient needs Dietary and Nutrition Services for: Adequate Nutrition, Nutritional Supplements and Nutritional Education Goals Goals Patient will remain: free from falls Patient will perform eating at: MOD I level of assist. Patient will perform bed mobility at: MOD I level of assist. Patient will complete transfers from bed to chair at: - (Supervision) Patient will ambulate: - (250 feet with least restrictive device at supervision) Patient will complete upper body dressing at: - (Supervision) Patient will complete lower body dressing at: - Patient will complete toilet transfer at: - (Supervision) Patient will complete toileting at: - (Supervision) Patient will perform bathing at: - (Supervision with upper body bathing and supervision with adaptive equipment as needed for lower body bathing) Patient will complete grooming at: - (Supervision while standing at the sink) Patient will achieve: - (Ascend/descend 1 flight of steps with 1 handrail at supervision so that he has access to his basement/man cave.) Patient will have pain level of: of 3 or less Patient's skin will: remain intact Patient will receive: adequate nutrition. Discharge Planning Pt Prognosis for Sig. Practical Improv. w/in Reasonable Time: Fair Estimated Length of stay (days): 28 Anticipated D/C Destination: TBD Was Preadmission Assessment Accurate?: Yes
[2024-08-19 17:56] VITALS: BP 93/47; PULSE 67; RESP 17; TEMP 36.6; O2SAT 96
[2024-08-19] MEDS: Atorvastatin Calcium 80 MG Tablet PO (20:02)
[2024-08-19] MEDS: QUEtiapine 25 MG Tablet PO (20:05)
[2024-08-19 22:00] VITALS: O2SAT 97
[2024-08-19 23:52] LABS: Iron 54 ug/dL (65-175); Iron Binding Capacity,Total 323 ug/dL (250-450); Iron Binding Capacity,Unsat 269 ug/dL (228-428)
[2024-08-20] VITALS (8 sets, daily range): BP systolic 84–129; BP diastolic 46–67; PULSE 57–77; RESP 16–18; TEMP 36.2–36.7; O2SAT 95–96; BMI 20.9
[2024-08-20] MEDS: Enoxaparin 40 MG/0.4 ML Syringe SC (05:02)
[2024-08-20] MEDS: Menthol/Lanolin/Calamine/Znox 113 GM Tube 1 APPLIC TOPICAL ×2 (05:03→20:45)
[2024-08-20] MEDS: Senna/Docusate Sodium 1 Tablet 2 TABLET PO ×2 (07:59→20:42)
[2024-08-20] MEDS: Aspirin 81 MG TAB.CHEW PO (07:59)
[2024-08-20] MEDS: Clopidogrel Bisulfate 75 MG Tablet PO (07:59)
[2024-08-20] MEDS: Pantoprazole Sodium 40 MG Tablet PO (07:59)
[2024-08-20] MEDS: Ramipril 10 MG Capsule PO (07:59)
[2024-08-20] MEDS: Fluticasone/Salmeterol 232-14 Inhaler 1 PUFF INHALATION ×2 (07:59→20:42)
[2024-08-20] MEDS: NIFEdipine 30 MG Tablet PO (07:59)
[2024-08-20] MEDS: Sertraline 50 MG Tablet PO (08:00)
--- NOTE | 2024-08-20 11:51 | CASEMGMT ---
Social Work SW left VM with to gather further history on patient. Sury Peck FURNACE FIRER GLASS BULB MACHINE ADJUSTER
--- NOTE | 2024-08-20 18:09 | PN_ITS ---
Subjective Subjective Afebrile Blood pressure this a.m. was 129/67 at 0600 and he received Procardia XL 30 mg. At 10 AM the blood pressure was 99/52 and the 2 PM blood pressure was 84/46. Oral fluid intake is very poor. Per nursing he slept well last night. No agitation today and he has been cooperative with therapy. He had a large bowel movement today. Has not been incontinent. Denies lightheadedness. Also denies cephalgia, chest pain, shortness of breath, palpitations, nausea/vomiting/abdominal pain, dysuria and calf tenderness. Objective Data Objective Data Vital Signs: Vital Signs Temp Pulse Resp BP Pulse Ox O2 Del Method FiO2 97.1 F L 69 18 84/46 L 95 Room Air 21 08/20/24 06:00 08/20/24 14:00 08/20/24 06:00 08/20/24 14:00 08/20/24 07:40 08/20/24 10:00 08/19/24 22:00 Oxygen Delivery Method Room Air Weight: 133 lb 13.129 oz Body Mass Index (BMI) 20.9 Intake & Output: Intake and Output for Last 24 Hours 08/18/24 08/19/24 08/20/24 23:59 23:59 23:59 Intake Total 240 / 240 820 / 820 480 / 480 Output Total 480 / 480 425 / 425 475 / 475 Balance -240 / -240 395 / 395 5 / 5 Lab / Micro Data 08/19/24 05:34 08/19/24 05:34 Labs: Laboratory Results - last 24 hr 08/19/24 05:34: Iron 54 L, TIBC 323, Iron Saturation 17.0, Unsaturated IBC 269 Micro: Microbiology 08/20/24 11:55 Stool Stool Occult Blood (SHAWANDA) - Final Occult Blood Positive Physical Exam Const alert General Appearance: cooperative HEENT HEENT Narrative: MM are dry. The tongue deviates to the left. the tongue is coated but, he denies mouth pain and painful swallowing. Resp normal respiratory effort Resp Narrative: Rare expiratory wheeze. Not tachypneic. Effort and Inspection: able to speak in complete sentences Cardio regular rate, regular rhythm, no murmurs, no rub and no gallops GI normal to inspection, nondistended, normoactive bowel sounds, soft to palpation and non-tender Extremity no calf tenderness and no pedal edema Skin Skin Narrative: no rashes. The skin is dry. Assessment & Plan Assessment/Plan (1) Physical debility: (2) Acute cerebrovascular accident (CVA): (3) Cognitive dysfunction: (4) Wernickes encephalopathy: (5) History of alcoholism: (6) Oropharyngeal dysphagia: (7) Right hemiparesis: (8) Paresthesias: (9) Ataxia: (10) Facial droop: (11) Normochromic normocytic anemia: (12) History of depression: (13) COPD (chronic obstructive pulmonary disease): QUALIFIERS: COPD type: unspecified COPD Qualified Code(s): J44.9 - Chronic obstructive pulmonary disease, unspecified (14) HTN (hypertension): QUALIFIERS: Hypertension type: primary hypertension Qualified Code(s): I10 - Essential (primary) hypertension (15) Hyperlipidemia: QUALIFIERS: Hyperlipidemia type: unspecified Qualified Code(s): E 78.5 - Hyperlipidemia, unspecified (16) Tobacco abuse: (17) Prothrombin gene mutation: (18) Nonobstructive atherosclerosis of coronary artery: (19) Thoracic aortic aneurysm (TAA): QUALIFIERS: Thoracic aorta location: unspecified Presence of rupture: without rupture Qualified Code(s): I71.20 - Thoracic aortic aneurysm, without rupture, unspecified (20) AAA (abdominal aortic aneurysm) without rupture: QUALIFIERS: Abdominal aorta location: unspecified Qualified Code(s): I71.40 - Abdominal aortic aneurysm, without rupture, unspecified (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 PLAN: Plan 1. Continue therapy 2. Placed Procardia on hold. Hold ramipril if the systolic is less than 105. 3. Check orthostatics 4. Strongly encouraged increased fluid intake. 5. Recheck a BMP in the a.m. and orthostatics. If blood pressure is still low will administer IV fluids. Charges/Coding Visit Charges Inpatient E&M: 34777 Subs Hosp L1
[2024-08-20] MEDS: QUEtiapine 25 MG Tablet PO (20:41)
[2024-08-20] MEDS: Atorvastatin Calcium 80 MG Tablet PO (20:42)
[2024-08-20] MEDS: 0.9% Saline Lock 10 ML Syringe IV (20:46)
[2024-08-21] VITALS (7 sets, daily range): BP systolic 97–136; BP diastolic 60–72; PULSE 59–62; RESP 15–16; TEMP 36.4; O2SAT 95–97; BMI 20.9
[2024-08-21 06:22] LABS: Anion Gap 11 (5-15); BUN 28 mg/dL (4-19); BUN/Creat Ratio 33.2 RATIO (10-20); Calcium,Total 9.1 mg/dL (7.6-11.0); Carbon Dioxide 23.3 mmol/L (21.0-32.0); Chloride 101 mmol/L (98-108); Creatinine, Serum 0.84 mg/dL (0.70-1.20); EST Glomerular Filtration Rate 88 (>60); Estimated Creatinine Clearance 60.22 ml/min (50-250); Glucose 94 mg/dL (70-99); Sodium Level 136 mmol/L (133-145)
[2024-08-21] MEDS: Enoxaparin 40 MG/0.4 ML Syringe SC (06:25)
[2024-08-21] MEDS: Sertraline 50 MG Tablet PO (09:53)
[2024-08-21] MEDS: Ramipril 10 MG Capsule PO (09:53)
[2024-08-21] MEDS: Pantoprazole Sodium 40 MG Tablet PO (09:53)
[2024-08-21] MEDS: Clopidogrel Bisulfate 75 MG Tablet PO (09:53)
[2024-08-21] MEDS: Aspirin 81 MG TAB.CHEW PO (09:54)
[2024-08-21] MEDS: Senna/Docusate Sodium 1 Tablet 2 TABLET PO (09:54)
[2024-08-21] MEDS: Fluticasone/Salmeterol 232-14 Inhaler 1 PUFF INHALATION ×2 (09:54→22:23)
[2024-08-21] MEDS: 0.9% Saline Lock 10 ML Syringe IV ×2 (18:03→22:30)
[2024-08-21] MEDS: QUEtiapine 25 MG Tablet PO (22:23)
[2024-08-21] MEDS: Atorvastatin Calcium 80 MG Tablet PO (22:23)
[2024-08-21] MEDS: Menthol/Lanolin/Calamine/Znox 113 GM Tube 1 APPLIC TOPICAL (22:25)
[2024-08-22 01:10] VITALS: BMI 20.9
[2024-08-22] MEDS: Enoxaparin 40 MG/0.4 ML Syringe SC (04:59)
[2024-08-22] MEDS: Menthol/Lanolin/Calamine/Znox 113 GM Tube 1 APPLIC TOPICAL ×2 (05:02→20:28)
[2024-08-22 06:00] VITALS: BP 137/68; PULSE 59; RESP 17; TEMP 36.5; O2SAT 100
[2024-08-22 10:00] VITALS: BP 128/54; PULSE 60
[2024-08-22] MEDS: Ramipril 10 MG Capsule PO (10:58)
[2024-08-22] MEDS: Pantoprazole Sodium 40 MG Tablet PO (10:58)
[2024-08-22] MEDS: Clopidogrel Bisulfate 75 MG Tablet PO (10:58)
[2024-08-22] MEDS: Aspirin 81 MG TAB.CHEW PO (10:59)
[2024-08-22] MEDS: Sertraline 50 MG Tablet PO (10:59)
[2024-08-22 14:00] VITALS: BP 118/56; PULSE 58
[2024-08-22 14:51] VITALS: BMI 20.9
[2024-08-22] MEDS: 0.9% Saline Lock 10 ML Syringe IV (17:18)
[2024-08-22 17:54] VITALS: BP 117/68; PULSE 70; RESP 17; TEMP 36.3; O2SAT 96
[2024-08-22] MEDS: QUEtiapine 25 MG Tablet PO (20:26)
[2024-08-22] MEDS: Fluticasone/Salmeterol 232-14 Inhaler 1 PUFF INHALATION (20:26)
[2024-08-22] MEDS: Atorvastatin Calcium 80 MG Tablet PO (20:26)
[2024-08-22] MEDS: Senna/Docusate Sodium 1 Tablet 2 TABLET PO (20:27)
[2024-08-22 20:38] VITALS: BMI 20.9
[2024-08-22 20:43] VITALS: BP 105/60; PULSE 55
[2024-08-23 04:56] VITALS: BP 132/70; PULSE 61; RESP 16; TEMP 37.3; O2SAT 94
[2024-08-23] MEDS: Menthol/Lanolin/Calamine/Znox 113 GM Tube 1 APPLIC TOPICAL ×2 (05:00→20:28)
[2024-08-23] MEDS: 0.9% Saline Lock 10 ML Syringe IV ×2 (05:00→20:43)
[2024-08-23] MEDS: Enoxaparin 40 MG/0.4 ML Syringe SC (05:03)
[2024-08-23] MEDS: Fluticasone/Salmeterol 232-14 Inhaler 1 PUFF INHALATION ×2 (08:03→20:18)
[2024-08-23] MEDS: Senna/Docusate Sodium 1 Tablet 2 TABLET PO ×2 (08:03→20:19)
[2024-08-23] MEDS: Pantoprazole Sodium 40 MG Tablet PO (08:04)
[2024-08-23] MEDS: Ramipril 10 MG Capsule PO (08:04)
[2024-08-23] MEDS: Aspirin 81 MG TAB.CHEW PO (08:04)
[2024-08-23] MEDS: Clopidogrel Bisulfate 75 MG Tablet PO (08:04)
[2024-08-23] MEDS: Sertraline 50 MG Tablet PO (08:04)
--- NOTE | 2024-08-23 11:22 | PN_ITS ---
Subjective Subjective Tesfaye was seen on team rounds today. Afebrile VSS -blood pressure over the past 3 days has ranged from 97/64 to 132/70. Current blood pressure is 132/70 with a heart rate of 61. The heart rate has ranged from 55 - 70 over the past 72 hours. Was mildly orthostatic on Friday on VS but, he denied lightheadedness. fluid intake is improving. Maintaining appropriate oxygen saturation on to 100% Oral intake - FOOD eating 50 to 100% of the majority of his meals. Refused breakfast this morning but states he is not a breakfast eater normally. FLUIDS fluid intake on Friday was 1100 cc and on Friday was 1200 cc. He was ordered 1 Liter of NS over Friday night for + orthostatic VS Discussed with nursing - no problems that need addressed Reviewed the THERAPY notes Medication list reviewed. Denies cephalgia, lightheadedness, shortness of breath, chest pain, nausea/vomiting/abdominal pain, dysuria and calf pain. He tells me that every doctor he is ever seen since he was in high school playing football as told and he wheezes. Denies any family history of asthma. Has been prescribed inhalers in the past but will not use them. Objective Data Objective Data Vital Signs: Vital Signs Temp Pulse Resp BP Pulse Ox O2 Del Method FiO2 99.1 F 61 16 132/70 H 94 Room Air 21 08/23/24 04:56 08/23/24 04:56 08/23/24 04:56 08/23/24 04:56 08/23/24 04:56 08/23/24 04:56 08/19/24 22:00 Oxygen Delivery Method Room Air Weight: 133 lb 13.129 oz Body Mass Index (BMI) 20.9 Intake & Output: Intake and Output for Last 24 Hours 08/21/24 08/22/24 08/23/24 23:59 23:59 23:59 Intake Total 1100 / 1100 1200 / 1200 300 / 300 Output Total 1100 / 1100 600 / 600 200 / 200 Balance 0 / 0 600 / 600 100 / 100 Lab / Micro Data 08/19/24 05:34 08/21/24 05:22 Micro: Microbiology 08/20/24 11:55 Stool Stool Occult Blood (SHAWANDA) - Final Occult Blood Positive Physical Exam Const alert Constitutional Narrative: Appropriate, making good eye contact. Asking when he can go home. Resp normal respiratory effort Resp Narrative: Diffuse expiratory wheezing. No conversational dyspnea. Effort and Inspection: Negative for tachypneic Cardio regular rate, regular rhythm and no gallops Cardio Narrative: No ectopy GI normal to inspection, nondistended, normoactive bowel sounds, soft to palpation and non-tender Extremity no calf tenderness General Extremity: Negative for edema Psych Psych Narrative: Cooperative. still impulsive and gets off the toilet and stands up without assisted......staff is having to stand at the door of the BR and remind him to wait for help when getting off the toilet. He is sleeping welol at night. Good appetite. Pleasant and cooperative. Assessment & Plan Assessment/Plan (1) Physical debility: (2) Acute cerebrovascular accident (CVA): (3) Cognitive dysfunction: (4) Wernickes encephalopathy: (5) History of alcoholism: (6) Oropharyngeal dysphagia: (7) Right hemiparesis: (8) Paresthesias: (9) Ataxia: (10) Facial droop: (11) Normochromic normocytic anemia: (12) History of depression: (13) COPD (chronic obstructive pulmonary disease): QUALIFIERS: COPD type: unspecified COPD Qualified Code(s): J44.9 - Chronic obstructive pulmonary disease, unspecified (14) HTN (hypertension): QUALIFIERS: Hypertension type: primary hypertension Qualified Code(s): I10 - Essential (primary) hypertension (15) Hyperlipidemia: QUALIFIERS: Hyperlipidemia type: unspecified Qualified Code(s): E 78.5 - Hyperlipidemia, unspecified (16) Tobacco abuse: (17) Prothrombin gene mutation: (18) Nonobstructive atherosclerosis of coronary artery: (19) Thoracic aortic aneurysm (TAA): QUALIFIERS: Thoracic aorta location: unspecified Presence of rupture: without rupture Qualified Code(s): I71.20 - Thoracic aortic aneurysm, without rupture, unspecified (20) AAA (abdominal aortic aneurysm) without rupture: QUALIFIERS: Abdominal aorta location: unspecified Qualified Code(s): I71.40 - Abdominal aortic aneurysm, without rupture, unspecified (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 Continue therapy 2. We discussed on rounds that Tesfaye will no longer be allowed to drive due to cognitive dysfunction due to Wernicke's encephalopathy, recent additional cognitive deficit due to CVA and poor performance on testing done by ST. D/W ST. He can not even locate his room when he ambulates back from the therapy room. Short term memory is very poor. Per family has been declining cognitively for the last 3-5 years and he gets very irritable at times. they wonder if the Seroquel can be continued at Dc since he is so much calmer and less irritable since this medication was started. 3. Dtr Suzanne will come in for family training this week to see how he is functioning. 4. He is doing well in therapy. IF he will use the AD with ambulation at home and his dtr manages the medications and finances there is a possibilty he could return home with help. He has a hx of non-compliance. Charges/Coding Visit Charges Inpatient E&M: 38576 Subs Hosp L2
[2024-08-23 12:47] VITALS: BMI 20.9
--- NOTE | 2024-08-23 12:47 | CASEMGMT ---
Social Work IDT met with patient and dtr Suzanne at bedside, then dtr Taco and participated by phone, for Team meeting. Discussed patient's progress in PT/OT/ST/SN. Educated to Medicare approval of 13 days with DC 08/31. Dtr's explained pt was the primary caregiver for his , this cannot care for pt at DC. Dtr's asked prior to the meeting with , to not discuss pt's need for 24/ care and possible placement during meeting with present, until dtr's have that conversation with . Pt has no insight to deficits, impulsive, and poor safety awareness. Pt will need SBA-CGA with cues for safety at DC. explained pt's driving privileges will be suspended at DC. cannot drive. also broached topic of needing additional care at DC. SW educated to self and role. Offered for dtr/ to contact this worker to assist with DC planning and resources. Provided dtr this worker's contact information and will look forward to family's follow up call. Will ReTeam weekly. Sury Peck [employer] CAPTURE POWER PLANT ENGINEER RATE SETTER
[2024-08-23 18:00] VITALS: BP 112/63; PULSE 65; RESP 16; TEMP 36.6; O2SAT 94
[2024-08-23] MEDS: QUEtiapine 25 MG Tablet PO (20:17)
[2024-08-23] MEDS: Atorvastatin Calcium 80 MG Tablet PO (20:19)
[2024-08-23 20:39] VITALS: BMI 20.9
[2024-08-23 21:40] VITALS: PULSE 65; RESP 16; O2SAT 95
[2024-08-24 06:00] VITALS: BP 139/66; PULSE 55; RESP 16; TEMP 36.6; O2SAT 96
[2024-08-24] MEDS: Enoxaparin 40 MG/0.4 ML Syringe SC (06:21)
[2024-08-24] MEDS: Menthol/Lanolin/Calamine/Znox 113 GM Tube 1 APPLIC TOPICAL ×2 (06:21→20:17)
[2024-08-24] MEDS: Sertraline 50 MG Tablet PO (07:54)
[2024-08-24] MEDS: Ramipril 10 MG Capsule PO (07:54)
[2024-08-24] MEDS: Senna/Docusate Sodium 1 Tablet 2 TABLET PO ×2 (07:54→20:18)
[2024-08-24] MEDS: Pantoprazole Sodium 40 MG Tablet PO (07:54)
[2024-08-24] MEDS: Clopidogrel Bisulfate 75 MG Tablet PO (07:54)
[2024-08-24] MEDS: Fluticasone/Salmeterol 232-14 Inhaler 1 PUFF INHALATION ×2 (07:54→20:18)
[2024-08-24] MEDS: Aspirin 81 MG TAB.CHEW PO (07:54)
--- NOTE | 2024-08-24 12:33 | PN_ITS ---
Subjective Subjective Afebrile VSS -heart rate has ranged from 55-70 over the past 48 hours. Blood pressure has ranged from 105/60 to 139/66. Maintaining appropriate oxygen saturation on RA-94 to 96% Oral intake - FOOD eating 50 to 100% of almost all of his meals. Refused breakfast yesterday a.m. but he has never been a breakfast eater. FLUIDS poor despite encouragement to increase his fluid intake. Discussed with nursing - no problems that need addressed. Sleeping well at night. No agitation. No incontinence. Reviewed the THERAPY notes Medication list reviewed. Antihypertensives include ramipril 10 mg daily. Procardia XL 30 mg was placed on hold on 08/20/2024 for hypotension. Not on any medication to block the AV node. Recent TSH was 1.9. Tolerating sertraline with no adverse side effects. Has been compliant with using the fluticasone/Salmeterol inhaler....refused only once. there has been no change in wheezing and his dtr tells me that he has been prescribed an inhaler in the past and used it when she made him but, when he is at home and she is not watching him he does not use this. Tesfaye has no complaints today. He tells me that he has learned if he tries to get out of bed by himself the alarm goes off and so he does not do this. He tries to get away with getting up from the toilet and standing without assist in the bathroom because there is no alarm on him in the bathroom. We had a discussion about compliance. He smiled when I said he has a hx of non- compliance and doing what he wants and not what is actually best for him. I think it is good he has some insight into the alarm system. I told him IF he goes home he will not be safe if he is not using a device to ambulate, even in the house and falls will happen. He has stairs down to the basement and told his dtr he will be able to go down the stairs. We discussed that as his physician I can not recommend DC home IF I know that he will be non-compliant. He knows he has issues with memory. He is going to try and be complaint with the restriction in the BR and not get up by himself. He is to call for assist to get up. IF he is able to do this would consider a trial of going home if extra assistance can be provided by family, friends, beam builder helper/assistance and HHC. Would need to have a SW. Would need to discuss this with family. Will see how he does with dtr Suzanne in therapy tomorrow and how he does with compliance over the next couple days. Woul;d like to have a back up plan for SNF/ECF in case he is deemed not safe to go home. Objective Data Objective Data Vital Signs: Vital Signs Temp Pulse Resp BP Pulse Ox O2 Del Method FiO2 97.9 F 55 L 16 139/66 H 96 Room Air 21 08/24/24 06:00 08/24/24 06:00 08/24/24 06:00 08/24/24 06:00 08/24/24 06:00 08/24/24 06:00 08/19/24 22:00 Oxygen Delivery Method Room Air Weight: 133 lb 13.129 oz Body Mass Index (BMI) 20.9 Intake & Output: Intake and Output for Last 24 Hours 08/22/24 08/23/24 08/24/24 23:59 23:59 23:59 Intake Total 1200 / 1200 760 / 760 220 / 220 Output Total 600 / 600 900 / 900 500 / 500 Balance 600 / 600 -140 / -140 -280 / -280 Lab / Micro Data 08/19/24 05:34 08/21/24 05:22 Micro: Microbiology 08/20/24 11:55 Stool Stool Occult Blood (SHAWANDA) - Final Occult Blood Positive Physical Exam Const alert Constitutional Narrative: Appropriate, making good eye contact. Asking when he can go home. Resp normal respiratory effort Resp Narrative: Diffuse expiratory wheezing. No conversational dyspnea. Lying flat in bed with no respiratory distress. Denies shortness of breath. Not coughing. Effort and Inspection: Negative for tachypneic Cardio regular rate, regular rhythm and no gallops Cardio Narrative: No ectopy GI normal to inspection, nondistended, normoactive bowel sounds, soft to palpation and non-tender Extremity no calf tenderness General Extremity: Negative for edema Psych Psych Narrative: Assessment & Plan Assessment/Plan (1) Physical debility: (2) Acute cerebrovascular accident (CVA): (3) Cognitive dysfunction: (4) Wernickes encephalopathy: (5) History of alcoholism: (6) Oropharyngeal dysphagia: (7) Right hemiparesis: (8) Paresthesias: (9) Ataxia: (10) Facial droop: (11) Normochromic normocytic anemia: (12) History of depression: (13) COPD (chronic obstructive pulmonary disease): QUALIFIERS: COPD type: unspecified COPD Qualified Code(s): J44.9 - Chronic obstructive pulmonary disease, unspecified (14) HTN (hypertension): QUALIFIERS: Hypertension type: primary hypertension Qualified Code(s): I10 - Essential (primary) hypertension (15) Hyperlipidemia: QUALIFIERS: Hyperlipidemia type: unspecified Qualified Code(s): E 78.5 - Hyperlipidemia, unspecified (16) Tobacco abuse: (17) Prothrombin gene mutation: (18) Nonobstructive atherosclerosis of coronary artery: (19) Thoracic aortic aneurysm (TAA): QUALIFIERS: Thoracic aorta location: unspecified Presence of rupture: without rupture Qualified Code(s): I71.20 - Thoracic aortic aneurysm, without rupture, unspecified (20) AAA (abdominal aortic aneurysm) without rupture: QUALIFIERS: Abdominal aorta location: unspecified Qualified Code(s): I71.40 - Abdominal aortic aneurysm, without rupture, unspecified (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 Continue therapy 2. Daughter needed to come in for family training tomorrow 3. Encouraged him to increase his fluid intake. He has a full mug of water on his tray table and 4 bottles of bottled water and they are all full. 4. Continue to hold Procardia XL. Systolic blood pressure is only mildly above goal and this is only occasionally. Charges/Coding Visit Charges Inpatient E&M: 66621 Subs Hosp L1
[2024-08-24 13:28] VITALS: BMI 20.9
--- NOTE | 2024-08-24 14:22 | CASEMGMT ---
Social Work Received call from pt's and dtr, Suzanne, with several questions regarding recommendations for pt's DC and options of DC. SW explained IDT is recommending 24/7 care d/t safety and poor insight. Explained options for DC: home with 24/7 HHC, OOP cost; AL, OOP cost; SNF, OOP cost. inquired if [facility] would cover any part of a SNF stay. SW agreed, pt could admit skilled, but likely 20 days or less, would he receive [facility] skilled coverage, though that is at the discretion of the accepting SNF. If pt remains after skilled time, the LTC would be an OOP cost. Explained the family could choose to have the pt DC home a stay in AL or SNF, though AL requires the family to furnish the apt, so typically that is commitment of LTP. Explained AL makes the decision if they can meet the pt's needs, as pt would not be safe 'behind close doors' d/t impulsivity. inquired further about validity of staffing from private duty agencies. SW deferred to that agency on the qualifications of aides and hiring process. SW explained going home, an additional person outside of would need to assist and provide hands-on care/cuing for safety, though pt can physically complete the task himself. Discussed having the maintain traditional roles and protecting that relationship, not to enter into a caregiving role, as that can quickly lead to caregiver burnout. expressed understanding and agreed. , dtr and this worker discussed pt's negative attitude and lack of insight, that may be more difficult to manage if the pt were home. Discussed the pt may think he can return to PLOF, i.e. driving, with returning to his normal routine and environment, and that may put added stress on pt's to run interference vs the pt being in a facility. The and dtr agreed and aware. SW offered to provide resources to review pricing, suggested family tour an AL and SNF, prior to making a decision. Family agreed and accepting of resources via email - provided email addresses to this worker. Family very appreciative. - SW sent list of private duty agencies and LONG TERM via email. Sent list of SNFs in preferred geographical area, INN with pt?s insurance, including quality and resource data via [employer] link to and dtr emails. SW will continue to follow for DC planning assistance and support. Sury Peck INDOOR SPORTS CENTRE MANAGER EXECUTIVE VICE PRESIDENT BUSINESS DEVELOPMENT
[2024-08-24 17:47] VITALS: BP 115/56; PULSE 62; RESP 16; TEMP 36.1; O2SAT 99
[2024-08-24 19:38] VITALS: BMI 20.9
[2024-08-24] MEDS: 0.9% Saline Lock 10 ML Syringe IV (19:57)
[2024-08-24] MEDS: QUEtiapine 25 MG Tablet PO (20:04)
[2024-08-24] MEDS: Atorvastatin Calcium 80 MG Tablet PO (20:19)
[2024-08-24 21:00] VITALS: RESP 15; O2SAT 95
[2024-08-25] MEDS: Menthol/Lanolin/Calamine/Znox 113 GM Tube 1 APPLIC TOPICAL ×2 (04:55→20:10)
[2024-08-25] MEDS: Enoxaparin 40 MG/0.4 ML Syringe SC (04:55)
[2024-08-25 06:00] VITALS: BP 136/68; PULSE 54; RESP 14; TEMP 36.2; O2SAT 97; BMI 20.3
[2024-08-25] MEDS: Senna/Docusate Sodium 1 Tablet 2 TABLET PO ×2 (08:00→20:10)
[2024-08-25] MEDS: Fluticasone/Salmeterol 232-14 Inhaler 1 PUFF INHALATION ×2 (08:00→20:10)
[2024-08-25] MEDS: Sertraline 50 MG Tablet PO (08:00)
[2024-08-25] MEDS: Ramipril 10 MG Capsule PO (08:01)
[2024-08-25] MEDS: Clopidogrel Bisulfate 75 MG Tablet PO (08:01)
[2024-08-25] MEDS: Aspirin 81 MG TAB.CHEW PO (08:01)
[2024-08-25] MEDS: Pantoprazole Sodium 40 MG Tablet PO (08:01)
[2024-08-25 15:51] VITALS: BMI 20.3
[2024-08-25 17:41] VITALS: BP 128/68; PULSE 60; RESP 16; TEMP 36.6; O2SAT 98
[2024-08-25] MEDS: QUEtiapine 25 MG Tablet PO (20:10)
[2024-08-25] MEDS: Atorvastatin Calcium 80 MG Tablet PO (20:10)
[2024-08-26 01:39] VITALS: BMI 20.3
[2024-08-26] MEDS: Enoxaparin 40 MG/0.4 ML Syringe SC (05:13)
[2024-08-26] MEDS: Menthol/Lanolin/Calamine/Znox 113 GM Tube 1 APPLIC TOPICAL ×2 (05:14→20:52)
[2024-08-26 06:00] VITALS: BP 125/76; PULSE 74; RESP 18; TEMP 36.4; O2SAT 96
[2024-08-26] MEDS: Senna/Docusate Sodium 1 Tablet 2 TABLET PO ×2 (07:56→20:56)
[2024-08-26] MEDS: Aspirin 81 MG TAB.CHEW PO (07:57)
[2024-08-26] MEDS: Ramipril 10 MG Capsule PO (07:57)
[2024-08-26] MEDS: Sertraline 50 MG Tablet PO (07:57)
[2024-08-26] MEDS: Fluticasone/Salmeterol 232-14 Inhaler 1 PUFF INHALATION ×2 (07:57→20:52)
[2024-08-26] MEDS: Pantoprazole Sodium 40 MG Tablet PO (07:57)
[2024-08-26] MEDS: Clopidogrel Bisulfate 75 MG Tablet PO (07:57)
--- NOTE | 2024-08-26 09:30 | PN_ITS ---
Subjective Subjective Afebrile VSS -is ranged from 54-62 over the past 24 hours. Heart rate this a.m. is 74. Blood pressures have ranged from 125/76 to 139/66. Maintaining appropriate oxygen saturation on RA-96 to 98%. Oral intake - FOOD good, consistent FLUIDS continues to have poor fluid intake. Weight is down to 129 pounds (increased from 135 pounds 9 ounces at admission to rehab. Discussed with nursing - no problems that need addressed. Sleeping well at night. Cooperative with staff. No agitation. Reviewed the THERAPY notes - Got up off the toilet today again and was standing at the sink with no assistance called for. Medication list reviewed. Denies pain, SOB, palpitations, lightheadedness, dysuria, calf pain. ' Dtr Suzanne in yesterday for family training. Realizing he is going to need 30/12 supervision. Looking at options for care.......hiring people at home, ECF, assisted living, etc. Is going to tour a few facilities. Mother is disabled and non-compliant and she is awake at night and sleeping during the day and Tesfaye is awake during the day and sleeping when she is awake. He was her caregiver. They are both disabled now and he will no longer be able to drive. Objective Data Objective Data Vital Signs: Vital Signs Temp Pulse Resp BP Pulse Ox O2 Del Method FiO2 97.6 F L 74 18 125/76 H 96 Room Air 21 08/26/24 06:00 08/26/24 06:00 08/26/24 06:00 08/26/24 06:00 08/26/24 06:00 08/26/24 06:00 08/19/24 22:00 Oxygen Delivery Method Room Air Weight: 129 lb 13.636 oz Body Mass Index (BMI) 20.3 Intake & Output: Intake and Output for Last 24 Hours 08/24/24 08/25/24 08/26/24 23:59 23:59 23:59 Intake Total 930 / 930 580 / 680 300 / 300 Output Total 1100 / 1100 500 / 700 200 / 200 Balance -170 / -170 80 / -20 100 / 100 Lab / Micro Data 08/26/24 10:05 08/21/24 05:22 Micro: Microbiology 08/20/24 11:55 Stool Stool Occult Blood (SHAWANDA) - Final Occult Blood Positive Physical Exam Const alert Constitutional Narrative: Appropriate, making good eye contact. Asking when he can go home. Resp normal respiratory effort Resp Narrative: Scattered expiratory wheezing. No cough with deep breathing. No crackles. Not tachypneic and has no conversational dyspnea. No dyspnea with exertion. Effort and Inspection: Negative for tachypneic Cardio regular rate, regular rhythm and no gallops Cardio Narrative: No ectopy GI normal to inspection, nondistended, normoactive bowel sounds, soft to palpation and non-tender Extremity no calf tenderness General Extremity: Negative for edema Skin Rashes: no rashes Wounds: Negative for wounds noted Psych cooperative Psych Narrative: Sleeping well at night. Seroquel has been effective in controlling agitation and insomnia. Very poor short term memory. Does not recognize how many deficits he has. Still impulsive. Tolerating Sertraline with no adverse side effects. Appearance: appropriate Attitude: No agitated Assessment & Plan Assessment/Plan (1) Physical debility: (2) Acute cerebrovascular accident (CVA): (3) Cognitive dysfunction: (4) Wernickes encephalopathy: (5) History of alcoholism: (6) Oropharyngeal dysphagia: (7) Right hemiparesis: (8) Paresthesias: (9) Ataxia: (10) Facial droop: (11) Normochromic normocytic anemia: (12) History of depression: (13) COPD (chronic obstructive pulmonary disease): QUALIFIERS: COPD type: unspecified COPD Qualified Code(s): J44.9 - Chronic obstructive pulmonary disease, unspecified (14) HTN (hypertension): QUALIFIERS: Hypertension type: primary hypertension Qualified Code(s): I10 - Essential (primary) hypertension (15) Hyperlipidemia: QUALIFIERS: Hyperlipidemia type: unspecified Qualified Code(s): E 78.5 - Hyperlipidemia, unspecified (16) Tobacco abuse: (17) Prothrombin gene mutation: (18) Nonobstructive atherosclerosis of coronary artery: (19) Thoracic aortic aneurysm (TAA): QUALIFIERS: Thoracic aorta location: unspecified Presence of rupture: without rupture Qualified Code(s): I71.20 - Thoracic aortic aneurysm, without rupture, unspecified (20) AAA (abdominal aortic aneurysm) without rupture: QUALIFIERS: Abdominal aorta location: unspecified Qualified Code(s): I71.40 - Abdominal aortic aneurysm, without rupture, unspecified (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 Continue therapy 2. Check a BMP, mag and a change 3. Once again encouraged to increase fluid intake. Will not drink water. He drinks coffee. NA told to keep a cup of decaf coffee on his tray at all times. 4. Will not be safe at home without 24/ supervision. Can not drive. He had chronic dementia prior to the stroke due to Wernicke's encephalopathy and this was progressing over pst 3-5 years and he has been getting irritable at agitated at home. Will continue to work with his dtr's to determine where he will go at [place]. 5. Consider increasing Zoloft to 75 mg next week. May consider decreasing the Seroquel dose to 12.5 mg but, he is so much more Cooperative now and is sleeping well at night. 6. With all his aneurysms (lined with clot) he is at risk for more CVA's going forward and also at risk for sudden if one of the aneurysms ruptures. This was discussed with Suzanne. Charges/Coding Visit Charges Inpatient E&M: 09180 Subs Hosp L1
[2024-08-26 10:14] LABS: Hematocrit 36.4 % (40-54); Hemoglobin 12.2 g/dL (13.0-16.5)
[2024-08-26 11:20] VITALS: BMI 20.3
--- NOTE | 2024-08-26 14:59 | CASEMGMT ---
Social Work SW left VM with to follow up on DC planning. Sury Peck FOOD COUNTER ATTENDANT ILLUMINATOR
[2024-08-26 18:00] VITALS: BP 107/59; PULSE 64; RESP 16; TEMP 36.8; O2SAT 97
[2024-08-26 20:41] VITALS: BMI 20.3
[2024-08-26] MEDS: 0.9% Saline Lock 10 ML Syringe IV (20:46)
[2024-08-26] MEDS: Atorvastatin Calcium 80 MG Tablet PO (20:51)
[2024-08-26] MEDS: QUEtiapine 25 MG Tablet 12.5 MG PO (20:53)
[2024-08-26 22:00] VITALS: RESP 16; O2SAT 95
[2024-08-27] MEDS: Enoxaparin 40 MG/0.4 ML Syringe SC (05:30)
[2024-08-27] MEDS: Menthol/Lanolin/Calamine/Znox 113 GM Tube 1 APPLIC TOPICAL ×2 (05:31→20:51)
[2024-08-27 06:00] VITALS: BP 133/59; PULSE 56; RESP 15; TEMP 36.4; O2SAT 96
[2024-08-27 06:30] LABS: Anion Gap 12 (5-15); BUN 25 mg/dL (4-19); BUN/Creat Ratio 31.1 RATIO (10-20); Calcium,Total 8.9 mg/dL (7.6-11.0); Carbon Dioxide 22.6 mmol/L (21.0-32.0); Chloride 101 mmol/L (98-108); EST Glomerular Filtration Rate 89 (>60); Estimated Creatinine Clearance 61.35 ml/min (50-250); Glucose 96 mg/dL (70-99); Potassium 3.7 mmol/L (3.3-5.1); Sodium Level 136 mmol/L (133-145)
[2024-08-27] MEDS: Aspirin 81 MG TAB.CHEW PO (08:04)
[2024-08-27] MEDS: Sertraline 50 MG Tablet PO (08:04)
[2024-08-27] MEDS: Clopidogrel Bisulfate 75 MG Tablet PO (08:04)
[2024-08-27] MEDS: Ramipril 10 MG Capsule PO (08:04)
[2024-08-27] MEDS: Senna/Docusate Sodium 1 Tablet 2 TABLET PO ×2 (08:04→20:48)
[2024-08-27] MEDS: Pantoprazole Sodium 40 MG Tablet PO (08:04)
[2024-08-27] MEDS: Fluticasone/Salmeterol 232-14 Inhaler 1 PUFF INHALATION ×2 (08:05→20:48)
--- NOTE | 2024-08-27 12:32 | PN_ITS ---
Subjective Subjective Afebrile Vital signs stable Maintaining appropriate oxygen saturation on room air Reviewed nurses notes. He did not sleep well last night. He is refusing meals today. He is setting off the alarms today. He is agitated and wanting to call his family telling them we are keeping him prisoner. Has been up since 4 AM. He had 12.5 mg of Seroquel last night and obviously this attempt to wean has failed. The med list was reviewed. All lab drawn this morning was personally reviewed. The sodium is 136 and the potassium is 3.7. The BUN is 25 with a stable creatinine of 0.8. Calcium and magnesium are normal. Denies lightheadedness, cephalgia, chest pain, shortness of breath, palpitations, nausea/vomiting/abdominal pain, dysuria and calf tenderness. Objective Data Objective Data Vital Signs: Vital Signs Temp Pulse Resp BP Pulse Ox O2 Del Method FiO2 97.5 F L 56 L 15 133/59 H 96 Room Air 21 08/27/24 06:00 08/27/24 06:00 08/27/24 06:00 08/27/24 06:00 08/27/24 06:00 08/27/24 08:13 08/19/24 22:00 Oxygen Delivery Method Room Air Weight: 129 lb 13.636 oz Body Mass Index (BMI) 20.3 Intake & Output: Intake and Output for Last 24 Hours 08/25/24 08/26/24 08/27/24 23:59 23:59 23:59 Intake Total 580 / 680 860 / 860 Output Total 500 / 700 350 / 350 Balance 80 / -20 510 / 510 Lab / Micro Data 08/26/24 10:05 08/27/24 05:50 Labs: Laboratory Results - last 24 hr 08/27/24 05:50: Sodium 136, Potassium 3.7, Chloride 101, Carbon Dioxide 22.6, Anion Gap 12, BUN 25 H, Creatinine 0.80, Estim Creat Clear Calc 61.35, Est GFR (MDRD) Non-Af 89, BUN/Creatinine Ratio 31.1 H, Glucose 96, Calcium 8.9, Magnesium 2.0 Micro: Microbiology 08/20/24 11:55 Stool Stool Occult Blood (SHAWANDA) - Final Occult Blood Positive Physical Exam Const alert and oriented x3 Constitutional Narrative: Cooperative and pleasant HEENT Mouth: dry mucous membranes Resp Resp Narrative: Scattered mild expiratory wheezing, no crackles. No conversational dyspnea, no tachypnea no accessory muscle use. No cough with deep breathing. Cardio regular rate, regular rhythm, no murmurs and no gallops Cardio Narrative: No ectopy GI normal to inspection, nondistended, normoactive bowel sounds and soft to palpation GI Narrative: No guarding with palpation Extremity no calf tenderness General Extremity: Negative for edema Assessment & Plan Assessment/Plan (1) Physical debility: (2) Acute cerebrovascular accident (CVA): (3) Cognitive dysfunction: (4) Wernickes encephalopathy: (5) History of alcoholism: (6) Oropharyngeal dysphagia: (7) Right hemiparesis: (8) Paresthesias: (9) Ataxia: (10) Facial droop: (11) Normochromic normocytic anemia: (12) History of depression: (13) COPD (chronic obstructive pulmonary disease): QUALIFIERS: COPD type: unspecified COPD Qualified Code(s): J44.9 - Chronic obstructive pulmonary disease, unspecified (14) HTN (hypertension): QUALIFIERS: Hypertension type: primary hypertension Qualified Code(s): I10 - Essential (primary) hypertension (15) Hyperlipidemia: QUALIFIERS: Hyperlipidemia type: unspecified Qualified Code(s): E 78.5 - Hyperlipidemia, unspecified (16) Tobacco abuse: (17) Prothrombin gene mutation: (18) Nonobstructive atherosclerosis of coronary artery: (19) Thoracic aortic aneurysm (TAA): QUALIFIERS: Thoracic aorta location: unspecified Presence of rupture: without rupture Qualified Code(s): I71.20 - Thoracic aortic aneurysm, without rupture, unspecified (20) AAA (abdominal aortic aneurysm) without rupture: QUALIFIERS: Abdominal aorta location: unspecified Qualified Code(s): I71.40 - Abdominal aortic aneurysm, without rupture, unspecified (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 Continue therapy 2. 25 to Seroquel p.o. now. 3. Increase the at bedtime dose to 25 mg once again. He failed trying to wean him down and had recurrent agitation, increased paranoia and did not sleep well last night. Charges/Coding Visit Charges Inpatient E&M: 38629 Subs Hosp L1
[2024-08-27] MEDS: QUEtiapine 25 MG Tablet PO ×2 (12:55→20:49)
--- NOTE | 2024-08-27 16:19 | CASEMGMT ---
Social Work SW received call from dtr requesting this worker coordinate skilled HHC through [facility]. SW clarified about DC plan, if family was electing to take pt home. Dtr confirmed the plan is home. SW reiterated that recommendation is 30/12 care. Dtr acknowledged. SW inquired who would be providing the care for the pt in the home. Dtr stated my sister and I will just take turns. Other dtr, Taco, lives out of town. SW inquired about hiring nonskilled aides. Dtr stated, my mom doesn't want that. SW accepted and agreed to coordinate skilled HHC. Will place referral to [facility] and notify dtr if they can accept. Dtr appreciative. SW informed dtr that pt will not have a Team meeting Friday as DC is Friday. Dtr acknowledged. - SYLVAIN phoned referral to [facility] for PT/OT/ST/SN/SW. Plan: DC home with 08/31, [facility] PT/OT/ST/SN/SYLVAIN ANW
[2024-08-27 16:57] VITALS: BMI 20.3
[2024-08-27 18:00] VITALS: BP 96/58; PULSE 69; RESP 12; TEMP 36.6; O2SAT 95
[2024-08-27] MEDS: Atorvastatin Calcium 80 MG Tablet PO (20:48)
[2024-08-27] MEDS: 0.9% Saline Lock 10 ML Syringe IV (20:52)
[2024-08-27 21:00] VITALS: RESP 18
[2024-08-27 23:48] VITALS: BMI 20.3
[2024-08-28 06:00] VITALS: BP 117/65; PULSE 67; RESP 17; TEMP 36.3; O2SAT 94
[2024-08-28] MEDS: Menthol/Lanolin/Calamine/Znox 113 GM Tube 1 APPLIC TOPICAL ×2 (06:26→21:08)
[2024-08-28] MEDS: Enoxaparin 40 MG/0.4 ML Syringe SC (06:26)
[2024-08-28] MEDS: Aspirin 81 MG TAB.CHEW PO (09:20)
[2024-08-28] MEDS: Ramipril 10 MG Capsule PO (09:20)
[2024-08-28] MEDS: Fluticasone/Salmeterol 232-14 Inhaler 1 PUFF INHALATION ×2 (09:20→20:56)
[2024-08-28] MEDS: Pantoprazole Sodium 40 MG Tablet PO (09:21)
[2024-08-28] MEDS: Sertraline 50 MG Tablet PO (09:21)
[2024-08-28] MEDS: Clopidogrel Bisulfate 75 MG Tablet PO (09:22)
[2024-08-28 09:25] VITALS: BP 111/52; PULSE 68
[2024-08-28 15:32] VITALS: BMI 20.3
[2024-08-28] MEDS: 0.9% Saline Lock 10 ML Syringe IV (17:58)
[2024-08-28 18:00] VITALS: BP 103/48; PULSE 63; RESP 16; TEMP 36.7; O2SAT 96
[2024-08-28] MEDS: QUEtiapine 25 MG Tablet PO (20:55)
[2024-08-28] MEDS: Senna/Docusate Sodium 1 Tablet 2 TABLET PO (20:56)
[2024-08-28] MEDS: Atorvastatin Calcium 80 MG Tablet PO (20:56)
[2024-08-29 00:48] VITALS: BMI 20.3
[2024-08-29] MEDS: Enoxaparin 40 MG/0.4 ML Syringe SC (05:39)
[2024-08-29] MEDS: Menthol/Lanolin/Calamine/Znox 113 GM Tube 1 APPLIC TOPICAL ×2 (05:40→20:14)
[2024-08-29 05:41] VITALS: BP 101/61; PULSE 57; RESP 17; TEMP 37; O2SAT 97
[2024-08-29] MEDS: Aspirin 81 MG TAB.CHEW PO (08:02)
[2024-08-29] MEDS: Clopidogrel Bisulfate 75 MG Tablet PO (09:58)
[2024-08-29] MEDS: Fluticasone/Salmeterol 232-14 Inhaler 1 PUFF INHALATION ×2 (09:58→20:14)
[2024-08-29] MEDS: Pantoprazole Sodium 40 MG Tablet PO (09:58)
[2024-08-29] MEDS: Sertraline 50 MG Tablet PO (09:59)
[2024-08-29] MEDS: Ramipril 10 MG Capsule PO (09:59)
[2024-08-29 12:50] VITALS: BMI 20.3
[2024-08-29 18:00] VITALS: BP 120/58; PULSE 59; RESP 17; TEMP 36.8; O2SAT 97
[2024-08-29] MEDS: Senna/Docusate Sodium 1 Tablet 2 TABLET PO (20:14)
[2024-08-29] MEDS: QUEtiapine 25 MG Tablet PO (20:14)
[2024-08-29] MEDS: Atorvastatin Calcium 80 MG Tablet PO (20:14)
[2024-08-29 20:23] VITALS: BMI 20.3
[2024-08-30] MEDS: Enoxaparin 40 MG/0.4 ML Syringe SC (05:02)
[2024-08-30] MEDS: Menthol/Lanolin/Calamine/Znox 113 GM Tube 1 APPLIC TOPICAL ×2 (05:04→20:02)
[2024-08-30 05:05] VITALS: BP 121/64; PULSE 58; RESP 16; TEMP 37.2; O2SAT 95
[2024-08-30] MEDS: Senna/Docusate Sodium 1 Tablet 2 TABLET PO ×2 (07:46→20:03)
[2024-08-30] MEDS: Fluticasone/Salmeterol 232-14 Inhaler 1 PUFF INHALATION ×2 (07:46→20:02)
[2024-08-30] MEDS: Ramipril 10 MG Capsule PO (07:46)
[2024-08-30] MEDS: Pantoprazole Sodium 40 MG Tablet PO (07:46)
[2024-08-30] MEDS: Aspirin 81 MG TAB.CHEW PO (07:46)
[2024-08-30] MEDS: Clopidogrel Bisulfate 75 MG Tablet PO (07:46)
[2024-08-30] MEDS: Sertraline 50 MG Tablet PO (09:10)
[2024-08-30 12:03] VITALS: BMI 20.3
--- NOTE | 2024-08-30 16:23 | PCM.DC ---
Discharge Instructions Diet Discharge Diet: No restrictions DC O2, CPAP, BIPAP needs Home O2 Discharge instructions: No Dressing / Incision Discharge Activity: May Not Drive and - (use a cane when ambulating or a walker. ) Weight Bearing Status: Full weight bearing Dressing / Incision Call your doctor if you observe: Fever of 101 or Higher, Inability to urinate, Inability to have a bowel movement, Shortness of breath, Dizziness, Fainting spells, Swelling in the ankles, Chest pain, Increased palpitations (irregular heartbeat), Calf discomfort and - (STROKE symptoms: facial droop, slurred speech, inability to get words out, weakness on 1 side of the body and not the other, numbness on 1 side of the body and not the other, inability to maintain your balance sitting or standing, vertigo. ) Follow Up Care When: You will need to follow up with Dr. Braun, Dr. Marina (vascular surgery) and Apryl Claudio (neurology) following discharge for rehab. Appts have been made and are listed at the end of this document. Test Results: Test results from this visit will be discussed in further detail at your follow-up appointment, if applicable. Pending Tests Upon Discharge: none Discharge Plan Admission Admit Date/Time: 08/18/24 15:22 Primary Reason for Your Visit: POST STROKE DEBILITY Attending Provider: Elen Muñoz Primary Care Provider: Gardenia Braun Consulting Providers: Anupam Davis; Jhoana Marc; Aparna Arroyo; Hue Orellana; Lidia Leary NP; Sury Prajapati Instructions Patient Instructions: Understanding Dementia, Dementia Caregiver Tips Additional Instructions / Restrictions: 1. You have made good progress on rehab. We initially had problems with agitation when you first arrived on rehab and I started a medication called Seroquel to help you sleep at night and to help control agitation and angry outbursts. You did well on this medication and you were very cooperative and sleeping through the night. We tried cutting the dose in half and the agitation and insomnia and angry outbursts with staff recurred. I am discharging you on Seroquel 25 mg at bedtime. If you are having problems with anger and behavior during the day you can take an extra dose in the morning. Taking this medication will help with keeping you at home rather than a marine oil terminal superintendent care facility. 2. You have many aneurysms. Aneurysms are a weakening in the wall of an artery and this can lead to rupture of the artery and bleeding. Sometimes the artery with the aneurysm will have blood clots that adhere to the wall of the aneurysm and these can break off and lead to strokes. You are at risk if more strokes in the future. You are also at risk for blood clots into your legs. If you get an arterial clot into the leg the leg will get VERY painful and can be cold to the change with blue or white discoloration of the the leg. This would be an emergency and you would need to go to the ER immediately. 3. You will no longer be able to drive. You have a form of dementia called Wernicke's encephalopathy. This degeneration of the brain occurs as a result of long-term alcohol abuse. Even though you have quit drinking this will not change. In addition to the Wernicke's encephalopathy I think you probably have Alzheimer's dementia also. Over the past 3 to 5 years your memory has gotten increasingly bad and now you have some behavioral disturbance. You are not safe to drive. 4. If you or your family have any questions after you leave rehab please do not hesitate to call me. 5. the director social welfare made a referral for palliative care. they will be calling you to set up a meeting. They will tell you what they do and answer any questions you have. You are not obligated to sign up for anything....I just think it would be beneficial to have palliative care on because they can help deal with problems that would other walter lead to a trip to the ER. they can also prescribe medications. OFFICE: [phone] CELL: [phone] NURSES STATION ON REHAB: [phone] Discharge Orders/Prescriptions Prescriptions: New quetiapine 25 mg Tablet 25 mg PO 2100 Qty: 45 0RF Rx Instructions: Take 1 tab at bedtime every night. If agitated during the day can give 25 mg one more time a day as needed. atorvastatin 80 mg Tablet 80 mg PO QHS Qty: 30 0RF acetaminophen 325 mg Tablet 650 mg PO Q6H PRN PRN (Reason: Pain Score 1-10) Qty: 1 0RF sertraline 50 mg Tablet 50 mg PO DAILY Qty: 30 0RF Mylanta Tonight 800-270-80 mg/10 mL suspension 15 ml PO Q6H PRN PRN (Reason: heartburn) Qty: 355 0RF Continued clopidogrel 75 mg Tablet 75 mg PO DAILY Qty: 30 0RF nifedipine 30 mg tablet extended release 24hr 30 mg PO DAILY Qty: 30 3RF aspirin 81 mg Tablet,Chewable 81 mg PO DAILY Qty: 90 0RF ramipril 10 mg capsule 10 mg PO DAILY Qty: 30 0RF Discontinued omeprazole 40 mg capsule,delayed release(DR/EC) 40 mg PO DAILY Qty: 30 0RF atorvastatin 40 mg tablet 40 mg PO QHS enoxaparin 40 mg/0.4 mL Syringe 40 mg subcut DAILY Referrals / Follow Up: Gardenia Braun MD [Primary Care Provider] - 09/07/24 3:40 pm Sammy Marina MD [Med Staff - Active Staff] - Within 1 Month Apryl Claudio NP-C [Med Staff - Adv Practice Prof] - 09/13/24 8:30 am Disposition Disposition (needs filled in before D/C Order can be placed): Home Health Service
[2024-08-30 17:46] VITALS: BP 121/59; PULSE 71; RESP 16; TEMP 36.8; O2SAT 96
[2024-08-30 19:48] VITALS: O2SAT 94
[2024-08-30 19:54] VITALS: BMI 20.3
[2024-08-30] MEDS: QUEtiapine 25 MG Tablet PO (20:02)
[2024-08-30] MEDS: Atorvastatin Calcium 80 MG Tablet PO (20:03)
[2024-08-31 06:00] VITALS: BP 120/62; PULSE 70; RESP 15; TEMP 36.7; O2SAT 94
[2024-08-31] MEDS: Enoxaparin 40 MG/0.4 ML Syringe SC (06:19)
[2024-08-31] MEDS: Ramipril 10 MG Capsule PO (08:29)
[2024-08-31] MEDS: Pantoprazole Sodium 40 MG Tablet PO (08:29)
[2024-08-31] MEDS: Aspirin 81 MG TAB.CHEW PO (08:29)
[2024-08-31] MEDS: Fluticasone/Salmeterol 232-14 Inhaler 1 PUFF INHALATION (08:29)
[2024-08-31] MEDS: Clopidogrel Bisulfate 75 MG Tablet PO (08:30)
[2024-08-31] MEDS: Senna/Docusate Sodium 1 Tablet 2 TABLET PO (08:30)
[2024-08-31] MEDS: Sertraline 50 MG Tablet PO (08:30)
--- NOTE | 2024-08-31 08:32 | CASEMGMT ---
Social Work Dr. Muñoz notified this worker that family is interested in a palliative care referral. SW sent secure email referral to [facility] and they will contact to schedule. Sury Peck LINER ASSEMBLER CREDIT ADMINISTRATION SPECIALIST
[2024-08-31 09:42] VITALS: BP 132/57; PULSE 58; RESP 18; TEMP 36.9; O2SAT 94
--- NOTE | 2024-08-31 09:45 | EX.DISCHREH ---
Providers Date of Admission: 08/18/24 Date of Discharge: 08/31/24 Primary Care Physician: Dr. Gardenia Braun MD Consultations 08/31/24 08:35 Consult: Hospice / Palliative Care Routine Consulting Provider: [facility] Reason for Consult: PALLIATIVE: stroke, Wernickes Encephalopathy, COPD EMERGENT Consult: No MD Notified: Yes Date Notified: 08/31/24 Time Notified: 08:35 Method of Notification: Text Reason For Visit: STROKE Diagnosis Discharge Diagnosis (1) Physical debility: Status: Acute Code(s): R53.81 - Other malaise (2) Acute cerebrovascular accident (CVA): Status: Resolved Code(s): I63.9 - Cerebral infarction, unspecified (3) Cognitive dysfunction: Status: Acute Code(s): F09 - Unspecified mental disorder due to known physiological condition (4) Wernickes encephalopathy: Status: Acute Code(s): E51.2 - Wernicke's encephalopathy (5) History of alcoholism: Status: Acute Code(s): F10.21 - Alcohol dependence, in remission (6) Oropharyngeal dysphagia: Status: Acute Code(s): R13.12 - Dysphagia, oropharyngeal phase (7) Right hemiparesis: Status: Acute Code(s): G81.91 - Hemiplegia, unspecified affecting right dominant side (8) Paresthesias: Status: Acute Code(s): R20.2 - Paresthesia of skin (9) Ataxia: Status: Acute Code(s): R27.0 - Ataxia, unspecified (10) Facial droop: Status: Acute Code(s): R29.810 - Facial weakness (11) Normochromic normocytic anemia: Status: Acute Code(s): D64.9 - Anemia, unspecified (12) History of depression: Status: Chronic Code(s): Z86.59 - Personal history of other mental and behavioral disorders (13) COPD (chronic obstructive pulmonary disease): Status: Chronic Code(s): J44.9 - Chronic obstructive pulmonary disease, unspecified Qualifiers: COPD type: unspecified COPD Qualified Code(s): J44.9 - Chronic obstructive pulmonary disease, unspecified (14) HTN (hypertension): Status: Chronic Code(s): I10 - Essential (primary) hypertension Qualifiers: Hypertension type: primary hypertension Qualified Code(s): I10 - Essential (primary) hypertension (15) Hyperlipidemia: Status: Chronic Code(s): E78.5 - Hyperlipidemia, unspecified Qualifiers: Hyperlipidemia type: unspecified Qualified Code(s): E78.5 - Hyperlipidemia, unspecified (16) Tobacco abuse: Status: Inactive Code(s): Z72.0 - Tobacco use (17) Prothrombin gene mutation: Status: Chronic Code(s): D68.52 - Prothrombin gene mutation (18) Nonobstructive atherosclerosis of coronary artery: Status: Chronic Code(s): I25.10 - Atherosclerotic heart disease of [place] coronary artery without angina pectoris (19) Thoracic aortic aneurysm (TAA): Status: Chronic Code(s): I71.2 - Thoracic aortic aneurysm, without rupture Qualifiers: Presence of rupture: without rupture Thoracic aorta location: unspecified Qualified Code(s): I71.20 - Thoracic aortic aneurysm, without rupture, unspecified (20) AAA (abdominal aortic aneurysm) without rupture: Status: Chronic Code(s): I71.4 - Abdominal aortic aneurysm, without rupture Qualifiers: Abdominal aorta location: unspecified Qualified Code(s): I71.40 - Abdominal aortic aneurysm, without rupture, unspecified (21) 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 Code(s): I72.8 - Aneurysm of other specified arteries (22) Diverticulosis: Status: Chronic Code(s): K57.90 - Diverticulosis of intestine, part unspecified, without perforation or abscess without bleeding (23) GERD (gastroesophageal reflux disease): Status: Acute Code(s): K21.9 - Gastro-esophageal reflux disease without esophagitis Qualifiers: Esophagitis presence: without esophagitis Qualified Code(s): K21.9 - Gastro-esophageal reflux disease without esophagitis (24) Carotid stenosis: Status: Inactive Code(s): I65.29 - Occlusion and stenosis of unspecified carotid artery Qualifiers: Laterality: bilateral Qualified Code(s): I65.23 - Occlusion and stenosis of bilateral carotid arteries (25) Psychomotor agitation: Status: Acute Code(s): R45.1 - Restlessness and agitation Plan 1. Continue therapy 2. 25 to Seroquel p.o. now. 3. Increase the at bedtime dose to 25 mg once again. He failed trying to wean him down and had recurrent agitation, increased paranoia and did not sleep well last night. Medications at Discharge Home Medications acetaminophen 325 mg tablet 650 mg (2 x 325 mg) PO Q6H PRN PRN Pain Score 1-10 #1 TAB 08/30/24 aspirin 81 mg chewable tablet 81 mg PO DAILY heart health #90 tabs 08/30/24 atorvastatin 80 mg tablet 80 mg PO QHS #30 tabs 08/30/24 calcium carb 800 mg-magnes hydrox 270 mg-simeth 80 mg/10 mL oral susp (Mylanta Tonight) 15 ml PO Q6H PRN PRN heartburn #355 mL 08/30/24 clopidogrel 75 mg tablet 75 mg PO DAILY anticoag #30 tabs 08/30/24 nifedipine 30 mg tablet,extended release 24 hr 30 mg PO DAILY BP #30 tabs 08/30/24 quetiapine 25 mg tablet 25 mg PO 2100 #45 tabs 08/30/24 ramipril 10 mg capsule 10 mg PO DAILY BP #30 caps 08/30/24 sertraline 50 mg tablet 50 mg PO DAILY #30 tabs 08/30/24 Hospital Course Operations None Summary of Care Provided Minutes Spent on Discharge: 42 Hospital Course: TESFAYE SINCLAIR, is an 79 YO M with a past medical history of prothrombin gene mutation (not on any anticoagulation), ongoing tobacco dependence, coronary artery disease, thoracic aortic aneurysm, hyperlipidemia, aneurysm of the right subclavian artery, Wernicke Korsakoff syndrome, remote alcoholism (quit drinking in 2014), depression, COPD, hypertension, diverticulosis, GERD and an abdominal aortic aneurysm without rupture (he follows at [facility] for aneurysms). He presented to the ED at [facility] on 08/17/2024 complaining of right-sided weakness. He was also having difficulty with ambulation. The last known well was approximately 8:30 PM the previous day. A stat noncontrast CT brain showed extensive periventricular white matter changes with mildly prominent ventricles and sulci. There was also bifrontal volume loss noted. There was no definitive acute intracranial hemorrhage, mass effect or midline shift. CTA of the head and neck showed acute basilar artery thrombosis, right vertebral artery occlusion, partial thrombosis of the right subclavian artery, greater than 70% stenosis within the left proximal ICA and approximately 50% stenosis in the right proximal ICA. Tele-neurology was consulted. [facility] teleneurology was consulted. The neurologist did not feel the patient would need transfer to [facility] for intervention. The patient was outside the window for TNK. Neurology recommended follow-up with vascular surgery as an outpatient for left carotid stenosis. He is chronically followed at [facility] for the aneurysms. He was admitted to the hospital on the hospitalist service. He was loaded with aspirin and clopidogrel in the emergency department. He was already taking atorvastatin 40 mg at presentation to the hospital but, the LDL was 85 and so the dose was increased to 80 mg. MRI of the brain, carotid ultrasound, echocardiogram and therapy evaluation was ordered. The MRI showed a small acute infarct in the left thalamus and punctate acute infarcts in the right cerebellum. The carotid ultrasound showed 50 to 69% stenosis of the right and the left extracranial internal carotid arteries. Echocardiogram showed an ejection fraction of 65% with no diastolic dysfunction and no regional wall motion abnormalities. The right ventricle was normal. The left and right atria were of normal size with no Doppler evidence of an atrial septal defect. There was no significant valvular heart disease. He was seen by PT/OT/ST and acute rehab was recommended at [place]. At the time of presentation to rehab he was not sleeping at night and had poor appetite and intake. He was quite agitated and paranoid. We had to give Seroquel shortly after he arrived on rehab to control behavior. Family related that over the past 3-5 years his mentation had been declining. He has a known history of Wernicke's encephalopathy secondary to chronic alcohol abuse in the past. I suspect he also has co-existing Alzheimer's dementia (there is a hx in his family). They also reported that he has been increasingly irritable and having difficulty sleeping even prior to the stroke. Seroquel 25 mg was ordered at . and EKG was obtained while on Seroquel and the QT interval was within normal limits. He had a left anterior hemiblock. He has a hx of depression and was not on an antidepressant at arrival to rehab. He had sx of depression and he was started on 50 mg of Sertraline daily. He has tolerated this with no adverse side effects. With the Seroquel he began sleeping through the night and was not having angry outbursts. He still had paranoia. He was cooperative with therapy but, did not see the point. He was unaware of his deficits and had poor safety awareness. Short term memory was very poor. He scored only 23 out of a possible 50 points on his brief cognitive assessment (BCAT). He had moderate oropharyngeal dysphagia but, was able to consume regular textures and thin liquids. Priot to DC he scored 25/30 on the COG LOG....a significant improvement. Prior to DC we attempted to wean Seroquel. He got 1 dose of 12.5 mg and he did not sleep well, was very agitated and paranoid in the AM and calling his family to tell them he was being held prisoner. We had to give him a dose of Seroquel 25 mg that morning to control behavior. The dose was increased to 25 mg at HS again and he is now sleeping well again. I think the Sertraline is helping. At the time of DC he is pleasant and has a more + outlook. He is not agitated and he thanks the staff now when he sees them and they do something for him. Hypotension was a problem early in the admission and we had to give IV fluids for orthostasis. Oral fluid intake is still fair at best but, he is not lightheaded and kidney function is stable. At the time of Dc the HGB is stable at 12.2. Iron studies were checked and they were not consistent with iron deficiency. B12 and folate were within normal limits and the TSH was 1.9. Creatinine at the time of discharge is 0.8 with a BUN of 25 and the creatinine has been stable. Magnesium is 2 and the phosphorus is within normal limits. Hemoglobin A1c is 5.9% which is consistent with glucose intolerance/prediabetes. Tesfaye did well with therapy and improved significantly while on rehab. His modified [place] score at admission to rehab was 4 and it is still currently 4 but he is now ambulating with a straight cane up to 700 feet on various surfaces at contact-guard assist. He sometimes carries the cane and has to be reminded to use the cane to aid with balance. He is able to do 13 sit to stands in 30 seconds and he can ascend/descend 20 steps with 2 handrails at light contact-guard assist. He is independent with eating and standby assist for grooming. He is supervision/set up with bathing, upper body dressing, lower body dressing and toileting. He is standby assist for toilet transfer and for tub/shower transfer. Tesfaye is still not able to find his room when ambulating in the garner on the rehab floor. 30/12 supervision was recommended at [facility]. HHC with [facility] was arranged by the prior to [place]. Paperwork was completed to have his drivers license suspended for progressive cognitive deficits due to Wernicke's Encephalopathy and suspected coexisting Alzheimer's disease which runs in his family. Appts were made for him to follow up with Dr. Braun (PCP), Dr. Sammy Marina (vascular surgery) and Apryl Claudio NP (neurology). Physical Exam Const alert Constitutional Narrative: Appropriate, making good eye contact. He is calm and not agitated. Making good eye contact with me and thanked me for stopping to see him. General Appearance: comfortable and well kempt HEENT head/scalp atraumatic HEENT Narrative: Mucous membranes are dry. No evidence of thrush. Tongue deviated to the left at admission to rehab but today is is on the midline. Eyes PERRL, EOMs intact bilaterally, conjunctivae normal and no scleral icterus Eyes Narrative: No discharge from the eyes. General Eye: normal appearance of both eyes and normal light reflex Neck supple, No nodes and no carotid bruits General: trachea midline Chest Chest: symmetrical chest wall rise Resp normal respiratory effort Resp Narrative: Scattered expiratory wheezing. No cough with deep breathing. No crackles. Not tachypneic and has no conversational dyspnea. No dyspnea with exertion. Wheezing persists despite fluticasone/Salmeterol and the inhaler. He has been prescribed inhalers in the past but, will not use them at home. Effort and Inspection: able to speak in complete sentences; Negative for tachypneic Cardio regular rate, regular rhythm, no murmurs, no rub and no gallops Cardio Narrative: No ectopy GI normal to inspection, nondistended, normoactive bowel sounds, soft to palpation, non-tender and no bruits GI Narrative: I can feel the aorta pulsate through the abd wall....he is thin but, there are no bruits. He has no evidence of emboli in the toes and he denies leg pain. no CVA tenderness Narrative: not incontinent of urine or stool Extremity no calf tenderness General Extremity: Negative for edema Skin Rashes: no rashes Wounds: Negative for wounds noted Neuro Neuro Narrative: Trace R facial droop.....can not see as many teeth on the R when he smiles. Speech projects well and is crisp, much improved over admission. He was better able to cooperate with exam at [facility]........he had a very difficult time following commands at admission. No visual field cuts, no extinction. He is alert and oriented x 3. Psych cooperative Psych Narrative: Sleeping well at night. Seroquel has been effective in controlling agitation and insomnia. Very poor short term memory. Does not recognize how many deficits he has. Still impulsive. Tolerating Sertraline with no adverse side effects. Appearance: appropriate Attitude: No agitated Weight / BMI Weight Weight: 129 lb 13.636 oz Body Mass Index (BMI) 20.3 ABG / Lab / Microbiology Data 08/26/24 10:05 08/27/24 05:50 Microbiology: Microbiology 08/20/24 11:55 Stool Stool Occult Blood (SHAWANDA) - Final Occult Blood Positive Indicators for Scoring Admitted with or Primary Diagnosis of CVA/Stroke: Yes Hx of CVA/Stroke: Yes Modified [place] Score MRS Score at time of Evaluation: 4-Moderate/severe disability NIHSS NIHSS 1a. Level of Consciousness: Alert; keenly responsive 1b. LOC Questions: Answers BOTH questions correctly. 1c. LOC Commands: Performs both tasks correctly. 2. Best Gaze: Normal 3. Visual: No visual loss 4. Facial Palsy: Minor paralysis (flattened nasolabial fold, asymmetry on smiling) 5a. Left Arm: No drift; arm holds 90 (or 45) degrees for full 10 seconds 5b. Right Arm: No drift; arm holds 90 (or 45) degrees for full 10 seconds 6a. Left Leg: No drift; leg holds 30-degree position for full 5 seconds 6b. Right Leg: No drift; leg holds 30-degree position for full 5 seconds 7. Limb Ataxia: Absent 9. Best Language: [id number] aphasia; 10. Dysarthria: Normal 11. Extinction and Inattention: No abnormality Total: 2 (Down from 5 at admission to rehab. ) Stroke Questions Stroke Team Activated: No D/C Instructions Discharge Diet: No restrictions Weight Bearing Status: Full weight bearing Call your doctor if you observe: Fever of 101 or Higher, Inability to urinate, Inability to have a bowel movement, Shortness of breath, Dizziness, Fainting spells, Swelling in the ankles, Chest pain, Increased palpitations (irregular heartbeat), Calf discomfort and - (STROKE symptoms: facial droop, slurred speech, inability to get words out, weakness on 1 side of the body and not the other, numbness on 1 side of the body and not the other, inability to maintain your balance sitting or standing, vertigo. ) DC O2, CPAP, BIPAP Needs RN Home O2 qualification: No Data to Display PSN CPAP & BiPAP: BiPAP & CPAP Settings per PSN Fraction of Inspired Oxygen ( 08/19/24 22:00 FIO2) Home O2 Discharge instructions: No Pending Tests Upon Discharge: none When: You will need to follow up with Dr. Braun, Dr. Marina (vascular surgery) and Apryl Claudio (neurology) following discharge for rehab. Appts have been made and are listed at the end of this document. Meaningful Use Info Meaningful Use Meaningful Use Diagnoses (Choose all that apply): Ischemic CVA CVA Therapy Assessed for PT,OT and/or ST?: Yes Ischemic Stroke Antithrombotic order at d/c?: Yes Dx of Atrial fib/flutter?: No Anticoagulant at discharge?: No Reason anticoagulant not ordered: Treatment not Indicated Statin Dosing Therapy Reference: STATIN DOSE THERAPY REFERENCE: * Patients > 75 years receive moderate or high dose statin therapy. * Patients 75 years or YOUNGER should receive HIGH intensity statin dose unless contraindicated. You will be required to document reason for non-treatment if statin daily dose does not meet guidelines. HIGH DOSE STATIN THERAPY DAILY Atorvastatin > than or = to 40 mg Rosuvastatin > than or = to 20 mg Amlodipine + Atorvastatin > than or = to 2.5/40 mg Ezetimibe + Simvastatin 10/80 mg Simvastatin 80mg Statins at discharge?: Yes Primary Dx Acute Ischemic CVA?: Yes IV thrombolytic ordered during stay?: No Reason IV thrombolytic not ordered: Procedure not Indicated Discharge Plan Admission Admit Date/Time: 08/18/24 15:22 Primary Reason for Your Visit: POST STROKE DEBILITY Attending Provider: Elen Muñoz Primary Care Provider: Gardenia Braun Consulting Providers: Anupam Davis; Jhoana Marc; Aparna Arroyo; Hue Orellana; Lidia Leary TEST FIXTURE ASSEMBLER; Sury Prajapati Instructions Patient Instructions: Understanding Dementia, Dementia Caregiver Tips Additional Instructions / Restrictions: 1. You have made good progress on rehab. We initially had problems with agitation when you first arrived on rehab and I started a medication called Seroquel to help you sleep at night and to help control agitation and angry outbursts. You did well on this medication and you were very cooperative and sleeping through the night. We tried cutting the dose in half and the agitation and insomnia and angry outbursts with staff recurred. I am discharging you on Seroquel 25 mg at bedtime. If you are having problems with anger and behavior during the day you can take an extra dose in the morning. 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 2. You have many aneurysms. Aneurysms are a weakening in the wall of an artery and this can lead to rupture of the artery and bleeding. Sometimes the artery with the aneurysm will have blood clots that adhere to the wall of the aneurysm and these can break off and lead to strokes. You are at risk if more strokes in the future. You are also at risk for blood clots into your legs. If you get an arterial clot into the leg the leg will get VERY painful and can be cold to the change with blue or white discoloration of the the leg. This would be an emergency and you would need to go to the ER immediately. 3. You will no longer be able to drive. You have a form of dementia called Wernicke's encephalopathy. This degeneration of the brain occurs as a result of long-term alcohol abuse. Even though you have quit drinking this will not change. In addition to the Wernicke's encephalopathy I think you probably have Alzheimer's dementia also. Over the past 3 to 5 years your memory has gotten increasingly bad and now you have some behavioral disturbance. You are not safe to drive. 4. If you or your family have any questions after you leave rehab please do not hesitate to call me. 5. the high school social studies tutor made a referral for palliative care. they will be calling you to set up a meeting. They will tell you what they do and answer any questions you have. You are not obligated to sign up for anything....I just think it would be beneficial to have palliative care on because they can help deal with problems that would other walter lead to a trip to the ER. they can also prescribe medications. OFFICE: [phone] CELL: [phone] NURSES STATION ON REHAB: [phone] Discharge Orders/Prescriptions Prescriptions: New quetiapine 25 mg Tablet 25 mg PO 2100 Qty: 45 0RF Rx Instructions: Take 1 tab at bedtime every night. If agitated during the day can give 25 mg one more time a day as needed. atorvastatin 80 mg Tablet 80 mg PO QHS Qty: 30 0RF acetaminophen 325 mg Tablet 650 mg PO Q6H PRN PRN (Reason: Pain Score 1-10) Qty: 1 0RF sertraline 50 mg Tablet 50 mg PO DAILY Qty: 30 0RF Mylanta Tonight 800-270-80 mg/10 mL suspension 15 ml PO Q6H PRN PRN (Reason: heartburn) Qty: 355 0RF Continued clopidogrel 75 mg Tablet 75 mg PO DAILY Qty: 30 0RF nifedipine 30 mg tablet extended release 24hr 30 mg PO DAILY Qty: 30 3RF aspirin 81 mg Tablet,Chewable 81 mg PO DAILY Qty: 90 0RF ramipril 10 mg capsule 10 mg PO DAILY Qty: 30 0RF Discontinued omeprazole 40 mg capsule,delayed release(DR/EC) 40 mg PO DAILY Qty: 30 0RF atorvastatin 40 mg tablet 40 mg PO QHS enoxaparin 40 mg/0.4 mL Syringe 40 mg subcut DAILY Referrals / Follow Up: Gardenia Braun MD [Primary Care Provider] - 09/07/24 3:40 pm Sammy Marina MD [Med Staff - Active Staff] - Within 1 Month Apryl Claudio NP-C [Med Staff - Adv Practice Prof] - 09/13/24 8:30 am Disposition Disposition (needs filled in before D/C Order can be placed): Home Health Service Charges/Coding Visit Charges Inpatient E&M: 91267 Disch Hosp >30min
[2024-08-31 12:38] VITALS: BMI 20.3
--- NOTE | 2024-08-31 15:34 | CASEMGMT ---
Social Work SW faxed skidder driver's license revocation to [facility] Special Case unit. Sury Peck UPHOLSTERER HELPER CUSTOMS DIRECTOR
== END 2024-08-31 12:30 | disposition home health service (06) | DRG 57 ==
PROVIDERS: Admitting Provider Internal Medicine; PCP Internal Medicine; Referring Provider Internal Medicine; Visit Provider Internal Medicine
DX: I69.351 Hemiplegia and hemiparesis following cerebral infarction affecting right dominant side (principal); E51.2 Wernicke's encephalopathy; F02.818 Dementia in other diseases classified elsewhere, unspecified severity, with other behavioral disturbance; D68.52 Prothrombin gene mutation; I69.322 Dysarthria following cerebral infarction; I69.392 Facial weakness following cerebral infarction; I72.8 Aneurysm of other specified arteries; J44.9 Chronic obstructive pulmonary disease, unspecified; F10.21 Alcohol dependence, in remission; I10 Essential (primary) hypertension; D64.9 Anemia, unspecified; F32.A Depression, unspecified; E78.5 Hyperlipidemia, unspecified; I71.40 Abdominal aortic aneurysm, without rupture, unspecified; I44.4 Left anterior fascicular block; K21.9 Gastro-esophageal reflux disease without esophagitis; F17.210 Nicotine dependence, cigarettes, uncomplicated; I25.10 Atherosclerotic heart disease of native coronary artery without angina pectoris; I71.20 Thoracic aortic aneurysm, without rupture, unspecified; I69.398 Other sequelae of cerebral infarction; I69.393 Ataxia following cerebral infarction; G47.00 Insomnia, unspecified; Z79.02 Long term (current) use of antithrombotics/antiplatelets; R13.12 Dysphagia, oropharyngeal phase; R45.1 Restlessness and agitation; R20.2 Paresthesia of skin; R73.03 Prediabetes; Z79.899 Other long term (current) drug therapy
CPT/HCPCS: 36415; 80048; 80053; 82274; 82607; 82728; 82746; 83036; 83540; 83550; 83735; 84100; 84443; 85014; 85018; 85025; 92507; 93005; 94762; 97110; 97112; 97116; 97129; 97130; 97162; 97166; 97530; 97535; 97802; A4216

== ENCOUNTER 2024-09-13 09:48 | Outpatient (CLI) | payer MEDICARE, OTHER, SELFPAY ==
[2024-09-13 13:22] LABS: Erythrocyte Sedimentation Rate 2 mm/hr (0-20)
[2024-09-13 13:36] LABS: CRP < 3.00 mg/L (0.0-3.0)
[2024-09-16 12:09] LABS: ANTINUCLEAR ANTIBODIES DIRECT Negative (Negative); Vitamin D 1,25-Dihydroxy 35.1 pg/mL (24.8-81.5)
[2024-09-19 18:07] LABS: Anti-Cardiolipin Ab, IgA, Qn < 9 APL U/mL (0-11); Anti-Cardiolipin Ab, IgG, Qn < 9 GPL U/mL (0-14); Anti-Cardiolipin Ab, IgM, Qn < 9 MPL U/mL (0-12); Anti-Thrombin 3 AG, Immunol 94 % (72-124); Antithrombin 3 Function 131 % (75-135); Complement C3 117 mg/dL (82-167); Complement CH50 > 60 U/mL (>41); Dilute Prothrombin Time (dPT) 37.4 sec (0.0-47.6); Dilute Russell Viper Venom 32.7 sec (0.0-47.0); Interpretation Comment: (.); PTT-LA 38.5 sec (0.0-43.5); Protein C, Functional 123 % (73-180); Protein S, Free 99 % (61-136); Protein S, Funtional 75 % (63-140); Protein S, Total 81 % (60-150); Thrombin Time 17.4 sec (0.0-23.0); Vitamin B1, Thiamine 70.1 nmol/L (66.5-200.0)
== END 2024-09-13 23:59 | disposition home or self-care (01) ==
LOC: MTLAB 09:49
PROVIDERS: PCP Internal Medicine
DX: D68.52 Prothrombin gene mutation (principal); I63.9 Cerebral infarction, unspecified; F09 Unspecified mental disorder due to known physiological condition
CPT/HCPCS: 36415; 81240; 81241; 82652; 84425; 85300; 85301; 85303; 85305; 85306; 85652; 86038; 86140; 86147; 86160; 86162; 86225; 86235

== ENCOUNTER → 2024-10-19 | Outpatient (CLI) | payer MEDICARE, OTHER, SELFPAY ==
[2024-10-19 13:45] LABS: ALB/GLOB Ratio 1.8 RATIO (0.9-2.4); AST(SGOT) 20 U/L (<=37); Alanine Aminotransfer ALT/SGPT 14 U/L (<=46); Alkaline Phosphatase 87 U/L (40-129); Anion Gap 10 (5-15); BUN 32 mg/dL (4-19); BUN/Creat Ratio 42.7 RATIO (10-20); Carbon Dioxide 22.3 mmol/L (21.0-32.0); Chloride 106 mmol/L (98-108); Creatinine, Serum 0.75 mg/dL (0.70-1.20); EST Glomerular Filtration Rate 91 (>60); Globulin 2.3 g/dL (2.2-4.2); Glucose 99 mg/dL (70-99); Potassium 4.2 mmol/L (3.3-5.1); Protein, Total 6.3 g/dL (5.9-8.4); Sodium Level 138 mmol/L (133-145)
== END | disposition home or self-care (01) ==
LOC: LAB 11:51
PROVIDERS: PCP Internal Medicine; Referring Provider Physician Assistant; Visit Provider Physician Assistant
DX: I95.9 Hypotension, unspecified (principal); Z86.73 Personal history of transient ischemic attack (TIA), and cerebral infarction without residual deficits
CPT/HCPCS: 36415; 80053

== ENCOUNTER → 2024-11-04 | Outpatient (CLI) | payer MEDICARE, OTHER, SELFPAY ==
--- NOTE | 2024-11-04 08:48 | AAVD_ITS ---
Reason For Study Reason For Study: AAA Aorta Measurements Aorta Doppler Measurements Proximal aorta measures2.85x3.04cm. in cross-sectional axis.Peak systolic flow velocities within the proximal aorta Proximal aorta measures2.41cm. in longitudinal axis. measure 40.2 cm/sec. Mid aorta measures4.81x5.21cm. in cross-sectional axis. Peak systolic flow velocities within the mid aorta measure Mid aorta measures4.88cm. in longitudinal axis. 45.9 cm/sec. Distal aorta measures3.14x2.78cm. in cross-sectional axis. Peak systolic flow velocities within the distal aorta Distal aorta measures2.90cm. in longitudinal axis. measure 24.9 cm/sec. Left Iliac Artery Left iliac artery measures 1.04x1.14 cm. in the cross-sectional axis. Left iliac artery measures 1.01 cm. in the longitudinal axis. Peak systolic velocity in the left iliac artery measures 71.0 cm/sec. Right Iliac Artery Right iliac artery measures 0.84 cm. in the longitudinal axis. Right iliac artery measures 0.80x0.81 cm. in the cross- sectional axis. Peak systolic velocity in the right iliac artery measures 73.2 cm/sec. Procedure Aorta IVC Iliac vasculature or bypass grafts [id number]. Exam performed in department. VL/Abd Aortic/IVC Duplex scan Interpretation Summary Aorta patent with 5.37 cm aneurysm present. Bilateral iliac arteries patent, normal caliber. Ordering Physician: Nissa Conroy Referring Physician: Gardenia Braun MD Performed By: Sirisha Bergman RVT
== END | disposition home or self-care (01) ==
LOC: CVS 08:48
PROVIDERS: PCP Internal Medicine; Referring Provider Physician Assistant; Visit Provider Physician Assistant
DX: I71.43 Infrarenal abdominal aortic aneurysm, without rupture (principal)
CPT/HCPCS: 93978

== ENCOUNTER → 2024-11-17 | Outpatient (CLI) | payer MEDICARE, OTHER, SELFPAY ==
--- NOTE | 2024-11-17 13:11 | CT_ITS ---
PROCEDURE: CTA UPPER EXT W/WO CONTRAST 11/17/2024 REASON FOR EXAM: R SUBCLAVIAN/AXILLARY ARTERY ANEURYSM Right upper extremity pain. Recent injury. TECHNIQUE: Axial CT images of the right upper extremity obtained with intravenous contrast. Coronal and Sagittal reconstruction series were provided. CONTRAST: Isovue-300 VOLUME: 100 mL One or more dose reduction techniques were used (e.g., Automated exposure control, adjustment of the mA and/or kV according to patient size, use of iterative reconstruction technique). 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 Maximum dimension is 2.4 cm by 3.5 cm. The aneurysm is partially calcified and partially clotted. The root of the ascending thoracic aorta measures 52.7 mm. There is also evidence of an infrarenal abdominal aortic aneurysm with a transverse dimension of 5.2 cm. 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 The aneurysm is partially calcified and partially thrombosed. There is also evidence of dilatation of the root of the ascending thoracic aort a measuring 52.7 mm as well as an infrarenal abdominal aortic aneurysm. Reading Location: [id number]
--- OUTSIDE RECORDS SUMMARY | 2024-11-17 21:35 | XMS RPT_ITS | CCD ---
Author Organization [facility] Care Team Providers Care Field Sales Consultant Name Role Phone Dell Cook Unavailable Unavailable Dell Cook Unavailable Unavailable Sera Castillo MD Primary Care Provider Jason, Toño S Unavailable Sera Castillo MD Primary Care Provider Jason, Chelsea S Unavailable Jason, Chelsea S Unavailable Sera Castillo MD Primary Care Provider Jason, Toño S Unavailable Sera Castillo MD Primary Care Provider Jason, Toño S Unavailable Jason WILDER Toño S Unavailable Sera Castillo MD Primary Care Provider Katie Bruno PA-C Unavailable Older RECRUITING CONSULTANT.COMMERCIAL FOOD INSTRUCTOR, Mari Unavailable She Arshad PA-C Unavailable Alireza RN, Chivo B Unavailable Unavailable Dr. Sera Castillo MD Primary Care Provider Dr. Ray Dennis DO Emergency Provider Dr. Enzo Mann DO Admit Provider Dr. Enzo Mann DO Attending Provider Alec Goyal MD Other Provider Unavailable Dr. Beka Harmon MD Other Provider [phone] Pavithra Rodriguez MD Other Provider Unavailable Dr. Nissa Daily DO Other Provider Martine WILDER, Dr. Banks Other Provider Margoth WILDER, Dr. Lin Other Provider Cynthia WILDER, Dr. Meade Other Provider Anabell WILDER, Dr. Hartman Other Provider Bradley WILDER, Dr. Coburn Other Provider Moisés WILDER, Dr. Núñez Other Provider Lilibeth WILDER, Yaneth Other Provider Leon WILDER, Dr. Jones Other Provider Robbi WILDER, Dr. Live Other Provider Caity WILDER, Dr. Castro Other Provider Tamar WILDER, Dr. Cisco Crawford Other Provider Sin WILDER, Dr. Kilgore Other Provider Gerardo WILDER, Dr. Delgado Other Provider Alexsander WILDER, Dr. Brannon Other Provider Ion WILDER, Dr. Mckeon Other Provider Unavailable Asya WILDER, Yousef Other Provider Unavailable Carmen WILDER, Dr. Campa Attending Provider Dr. Enzo Marina MD Attending Provider Dr. Enzo Mann DO Other Provider Mackenzie MADRIGAL, Dr. Christianson Referring Provider Toni MADRIGAL, Dr. Elen Mina Admit Provider Toni MADRIGAL, Dr. Elen Mina Attending Provide r Toni MADRIGAL, Dr. Elen Mina Referring Provide r Ryan MADRIGAL, Dr. Anupam Lobo Other Provider [phone] Tari WILDER, Dr. Ely Other Provider Cruz WILDER, Dr. Braun Other Provider Esteban CLOTH MERCERIZING SUPERVISOR-C, Hue Other Provider Unavailvanessa Leary CLOTH MERCERIZING SUPERVISOR-C, Lidia Other Provider Sury Rivas Other Provider Toni MADRIGAL, Dr. Elen Mina Other Provider Dr. Sera Castillo MD Referring Provider Shanon CLOTH MERCERIZING SUPERVISOR-C, Apryl Attending Provider Shanon CLOTH MERCERIZING SUPERVISOR-C, Apryl Referring Provider Kiana CHAU, Katie Charles Unavailable Jeancarlos CHAU, She Unavailable SELF Referring Unavailable GANTA, SERA Attending Unavailable GANTA, SERA Primary Care Unavailable ANDREE ASHLEIGH Referring Unavailable GANTA, SERA Primary Care Unavailable ENZO NELSON Referring Unavailable GANTA, SERA Primary Care Unavailable ANDREE ASHLEIGH Attending Unavailable GANTA, SERA Primary Care Unavailable GANTA, SERA Referring Unavailable GANTA, SERA Primary Care Unavailable ENZO NELSON Attending Unavailable NADREE, ASHLEIGH Referring Unavailable GANTA, SERA Primary Care Unavailable GANTA, SERA Attending Unavailable GANTA, SERA Primary Care Unavailable GANTA, SERA Referring Unavailable GANTA, SERA Attending Unavailable GANTA, SERA Primary Care Unavailable Nissa Alves Attending Provider Nissa Alves Referring Provider Ganta, Sera Primary Care Unavailable Ganta, Sera Referring Unavailable BordnApryl rachel Attending Unavailable Ganta, Sera Referring Unavailable Ganta, Sera Primary Care Unavailable Barak Cutler Attending Unavailable Ganta, Sera Primary Care Unavailable Lokesh Morales Attending Unavailabl e Ganta, Sera Referring Unavailable Ganta, Sera Primary Care Unavailable Nissa Conroy Attending Unavailable Anupam Davis Consulting Unavailable Ganta, Sera Primary Care Unavailable Sementi, Elen Mina Attending Unavaila ble Sementi, Elen Mina Admitting Unavaila ble Sementi, Elen Mina Referring Unavaila ble TariJhoana nichols Consulting Unavailable Arroyo, Aparna Consulting Unavailable Esteban, Hue Consulting Unavailable Sapphire, Lidia Consulting Unavailable Masci, Sury Consulting Unavailable Sementi, Elen Mina Consulting Unavaila ble [facility] Unavailable Conroy, Nissa Attending Unavailable Conroy, Nisas Referring Unavailable [facility] Unavailable Conroy, Nissa Attending Unavailable Conroy, Nissa Referring Unavailable [facility], [facility] Unavailable BordnerYisely Referring Unavailable BordnerYisely Attending Unavailable [facility] Primary Care Unavailable Bordner, Apryl Attending Unavailable Bordner, Apryl Referring Unavailable [facility], [facility] Unavailable Semengiana, Elen Mina Attending Unavaila ble Sementi, Elen Mina Admitting Unavaila ble Anupam Davis Consulting Unavailable Sementi, Elen Mina Referring Unavaila ble Tari, Jhoana Consulting Unavailable Mandy Arroyonifer Consulting Unavailable Esteban, Hue Consulting Unavailable Sapphire, Lidia Consulting Unavailable Masci, Sury Consulting Unavailable Jopperi, Enzo Admitting Unavailable Joghazala Enzo Attending Unavailable [facility] Primary Care Unavailable Alec Goyal Consulting Unavailable Adeli, Amir Consulting Unavailable Hinduja, Pavithra Consulting Unavailable Killian, Nissa Consulting Unavailable Zha, Jocelyn Consulting Unavailable Margoth, Riley Consulting Unavailable Cynthia, Halina Consulting Unavailable Anabell, Devan Consulting Unavailable Almas Huerta Consulting Unavailable Wilton Curiel Consulting Unavailable Yaneth Mcelroy Consulting Unavailable Robert Quintero Consulting Unavailable Maria T Culp Consulting Unavailable Matthew Carolina Consulting Unavailable Tamar, Cisoc Crawford Consulting UnavailJame Hughes Consulting Unavailable Carrillo, Rami Consulting Unavailable Clovis Beltre Consulting Unavailable Linda Lemon Consulting Unavailable Hannabird, Yousef Consulting Unavailable Jopperi, Enzo Referring Unavailable Ganta, Sera Primary Care Unavailable Salas Enzo Attending Unavailable [facility] Referring Unavailable [facility], [facility] Unavailable Rosa Streeter Attending Unavail able [facility] Primary Care Unavailable [place], Enzo Attending Unavailable Conroy, Nissa Referring Unavailable Jopperi, Enzo Attending Unavailable [facility], [facility] Care Unavailable Jopperi, Enzo Admitting Unavailable Jopperi, Enzo Attending Unavailable Ganta, Sera Primary Care Unavailable Alec Goyal Consulting Unavailable Beka Harmon Consulting Unavailable Pavithra Rodriguez Consulting Unavailable Nissa Daily Consulting Unavailable Jocelyn Farley Consulting Unavailable Riley Justin Consulting Unavailable Halina Marie Consulting Unavailable Devan Hung Consulting Unavailable Almas Huerta Consulting Unavailable Wilton Curiel Consulting Unavailable Yaneth Mcelroy Consulting Unavailable Robert Quintero Consulting Unavailable Maria T Culp Consulting Unavailable Matthew Carolina Consulting Unavailable Cisco Boyle Consulting UnavailJame Hughes Consulting Unavailable Danny Carrillo Consulting Unavailable Clovis Beltre Consulting Unavailable Linda Lemon Consulting Unavailable Deon Sky Consulting Unavailable Enzo Mann Consulting Unavailable Allergies Allergy Classification Reported Allergen(s) Allergy Type Date of Onset Reaction(s) Facility (12 sources) Aspirin Drug Allergy [address] [facility] Work Phone: (20 sources) Seasonal allergy; Translations: [SEASONAL ALLERGIES] Propensity to adverse reactions [address] [facility] (8 sources) Latex Allergy to substance 5 [facility] (1 source) Latex Drug allergy (disorder) 5 [facility] Rep[facility] Medications Current Medications Medication Drug Class(es) Dates Sig (Normalized) Sig (Original) acetaminophen 325 mg oral tablet (6 sources) Start: 08-30-2024 take 2 tablets by mouth every six hours as needed for pain Acetaminophen 325 mg Tablet Active 650 mg PO EVERY 6 HOURS NEEDED as needed for Pain Score 1-10 August 30, 2024 12:00am aspirin 81 mg chewable tablet (20 sources) Platelet Aggregation Inhibitor, Nonsteroidal Anti-inflammatory Drug Start: 03-18-2022 take 1 tablet by mouth once daily aspirin, enteric coated (ASPIRIN, ENTERIC COATED) 81 mg EC tablet Take 1 tablet by mouth once daily. 03/18/2022 Active Start: 03-08-2022 End: 08-30-2024 take 1 tablet by mouth once daily Aspirin 81 mg Tablet,Chewable Active 81 mg PO DAILY August 30, 2024 4:52pm Comment on above: Take 1 tablet by seth once daily. atorvastatin 80 mg oral tablet (20 sources) HMG-CoA Reductase Inhibitor Start: take 1 tablet by mouth at bedtime Atorvastatin 80 mg Tablet Active 80 mg PO AT BEDTIME August 30, 2024 12:00am Start: 04-12-2021 End: 09-07-2024 take 1 tablet by mouth once daily Atorvastatin 40 mg tablet Discontinued 40 mg PO DAILY May 07, 2021 4:06pm August 18, 2024 5:35pm Comment on above: Take 1 tablet by seth once daily. calcium carbonate 80 mg/ml / magnesium hydroxide 27 mg/ml / simethicone 8 mg/ml oral suspension (6 sources) Start: 08-31-19 take 1 mL by mouth every six hours as needed for gastroesophageal reflux disease Calcium Carb-Mag Hydrox-Simeth (Mylanta Tonight) 800-270-80 mg/10 mL suspension Active 15 mL PO EVERY 6 HOURS NEEDED as needed for heartburn August 30, 2024 4:48pm iv contrast (will be provided with radiology test) (4 sources) Start: 10-18-19 End: 10-19-19 iv contrast (will be provided with radiology test) MRI CHEST Inject, intravenously, once for 1 dose. No IV access, insert saline lock prior to the beginning of sedation, infusion, injection of imaging exam. Discontinue saline lock post exam. If Pt has a central line or IVAD, may access for administration according to line specific nursing protocol. Once exam is complete flush line and de-access according to line specific nursing protocol in the MR contrast administration guidelines link 1 Each 0 10/17/2022 10/18/2022 Active Start: 01-07-2022 End: 01-08-2022 inject 1 dose intravenously once iv contrast (will be provided with radiology test) For CTA CHEST (NONGATED) W IVCON and CTA ABD/PEL W IVCON orders. No IV access, insert saline lock prior to the sedation, infusion, injection for imaging exam. Discontinue saline lock post exam. If Pt. has a central line or IVAD, may access for administration according to line specific nursing protocol. Once exam is complete flush line and de-access according to line specific nursing protocol in the CT contrast administration guidelines link. 1 Each 0 01/07/2022 01/08/2022 Start: 01-07-2022 End: 01-08-2022 inject 1 dose intravenously once iv contrast (will be provided with radiology test) For CTA CHEST (NONGATED) W IVCON and CTA ABD/PEL W IVCON orders. No IV access, insert saline lock prior to the sedation, infusion, injection for imaging exam. Discontinue saline lock post exam. If Pt. has a central line or IVAD, may access for administration according to line specific nursing protocol. Once exam is complete flush line and de-access according to line specific nursing protocol in the CT contrast administration guidelines link. 1 Each 0 01/07/2022 01/08/2022 Active Comment on above: For CTA CHEST (NONGA BRENDA) W IVCON and CTA ABD/PEL W IVCON orders. No IV access, insert saline lock prior to the sedation, infusion, injection for imaging exam. Discontinue saline lock post exam. If Pt. has a central line or IVAD, may access for administration according to line specific nursing protocol. Once exam is complete flush line and de-access according to line specific nursing protocol in the CT contrast administration guidelines link. MRI CHEST Inject, in travenously, once for 1 dose. No IV access, insert saline lock prior to the beginning of sedation, infusion, injection of imaging exam. Discontinue saline lock post exam. If Pt has a central line or IVAD, may access for administration according to line specific nursing protocol. Once exam is complete flush line and de-access according to line specific nursing protocol in the MR contrast administration guidelines link OTC PRODUCT (20 sources) OTC PRODUCT Prev agen daily Active OTC PRODUCT Prev agen daily 0 Active Comment on above: Prevagen daily perflutren lipid microspheres 1.3 mL in NaCl (PF) 0.9% 10 mL injection (DEFINITY) (15 sources) Start: 2 End: 3 perflutren lipid microspheres 1.3 mL in NaCl (PF) 0.9% 10 mL injection (DEFINITY) sertraline 50 mg oral tablet (13 sources) Serotonin Reuptake Inhibitor Start: 5 End: 6 take 1 tablet by mouth once daily Sertraline 50 mg Tablet Active 50 mg PO DAILY August 30, 2024 12:00am Start: 07-07-2023 End: 07-21-2023 take 1 tablet by mouth once daily, then take 0.5 tablet by mouth once daily, then take 1 tablet by mouth once daily sertraline (ZOLOFT) 50 mg tablet Indications: Anxiety TAKE 1 TABLET BY MOUTH ONCE DAILY. START BY TAKING A HALF TAB DAILY X1 WEEK THEN CAN INCREASE TO A WHOLE TAB DAILY. OK TO WEAN DOWN IN THE SUMMER MONTHS. 90 tablet 1 07/07/2023 07/21/2023 Discontinued Comment on above: TAKE 1 TABLET BY SETH ONCE DAILY. START BY TAKING A HALF TAB DAILY X1 WEEK THEN CAN INCREASE TO A WHOLE TAB DAILY. OK TO WEAN DOWN IN THE SUMMER MONTHS. 125 ml sodium chloride 9 mg/ml prefilled syringe (15 sources) Start: 2 End: 3 sodium chloride 0.9 % (flush) 10 mL (BD POSIFLUSH) vitamin b12 1 mg oral tablet (20 sources) Vitamin B12 take 2 tablets by mouth once daily cyanocobalamin (VITAMIN B-12) 1,000 mcg tab Take 2,000 mcg by mouth once daily. Active take 1 tablet by mouth once krista y cyanocobalamin (VITAMIN B-12) 1,000 mcg tab Take 1,000 mcg by mouth once daily. Active Comment on above: [facility] 1,[facility]. Completed/Discontinued Medications Medication Drug Class(es) Dates Sig (Normalized) Sig (Original) [id number] 200 actuat albuterol 0.09 mg/actuat metered dose inhaler (8 sources) beta2-Adrenergic Agonist Start: 08-30-2018 End: 04-12-2021 Albuterol Sulfate (Proair Hfa) 1 PUFF inhaler Discontinued 2 NMA INHALATION NEEDED as needed for Sob &/Or Wheezing August 30, 2018 12:00am April 12, 2021 3:05pm atenolol 100 mg oral tablet (8 sources) beta-Adrenergic Regina Start: 11-25-2014 End: 11-29-2014 take 1 tablet by mouth once daily Atenolol 50 MG tablet Discontinued 50 mg PO DAILY November 25, 2014 12:00am November 29, 2014 9:16am 60 actuat budesonide 0.09 mg/actuat dry powder inhaler (8 sources) Corticosteroid Start: 08-30-2018 End: 04-12-2021 take 1 puff(s) by inhalation twice daily Budesonide (Pulmicort Flexhaler) 1 PUFF inhaler Discontinued 1 NMA INHALATION TWICE A DAY August 30, 2018 12:00am April 12, 2021 3:05pm 24 hr buPROPion hydrochloride 150 mg extended release oral tablet (8 sources) Aminoketone Start: 11-25-2014 End: 04-12-2021 take 1 tablet by mouth once daily Bupropion Hcl 150 MG tablet extended release 24 hr Discontinued 150 mg PO DAILY November 25, 2014 12:00am April 12, 2021 3:05pm busPIRone hydrochloride 5 mg oral tablet (8 sources) Start: 11-25-2014 End: 11-29-2014 take 7.5 mg by mouth once daily Buspirone 5 MG tablet Discontinued 7.5 mg PO DAILY November 25, 2014 12:00am November 29, 2014 9:18am citalopram 20 mg oral tablet (12 sources) Serotonin Reuptake Inhibitor Start: 07-21-2023 End: 09-10-2023 take 1 tablet by mouth once daily citalopram (CELEXA) 20 mg tablet Indications: Moderate episode of recurrent major depressive disorder (HCC) , Anxiety Take 1 tablet by mouth once daily. 30 tablet 5 07/21/2023 09/10/2023 Discontinued Start: 08-30-2018 End: 04-12-2021 take 1 tablet by mouth once daily Citalopram 20 MG tablet Discontinued 20 mg PO DAILY August 30, 2018 12:00am April 12, 2021 3:05pm Comment on above: Take 1 tablet by seth once daily. clopidogrel 75 mg oral tablet (20 sources) P2Y12 Platelet Inhibitor Start: 019 End: take 1 tablet by mouth once daily Clopidogrel 75 mg Tablet Discontinued 75 mg PO DAILY 0 August 18, 2024 12:00am August 30, 2024 4:52pm Comment on above: Take 1 tablet by seth th once daily. 0.4 ml enoxaparin sodium 100 mg/ml prefilled syringe (13 sources) Low Molecular Weight Heparin Start: 025 End: 025 Enoxaparin 40 mg/0.4 mL Syringe Discontinued 40 mg SC DAILY August 18, 2024 12:00am August 30, 2024 4:42pm ergocalciferol 1.25 mg oral capsule (8 sources) Provitamin D2 Compound Start: End: Ergocalciferol (Vitamin D2) (Vitamin D) 50,000 UNIT capsule Discontinued 19129 U PO Q7D November 25, 2014 12:00am November 29, 2014 9:18am 14 actuat fluticasone furoate 0.1 mg/actuat dry powder inhaler (20 sources) Corticosteroid Start: take 2 puff(s) by inhalation once daily, then take 1 puff(s) by inhalation once daily fluticasone furoate (ARNUITY ELLIPTA) 100 mcg/actuation inhaler Inhale 2 Puffs as instructed once daily. Inhale one puff once daily. DO NOT CLICK OPEN UNTIL READY FOR DOSE 1 Each 5 07/06/2021 Active Comment on above: Inhale 2 Puffs as in structed once daily. Inhale one puff once daily. DO NOT CLICK OPEN UNTIL READY FOR DOSE folic acid 1 mg oral tablet (8 sources) Start: End: take 1 tablet by mouth once daily Folic Acid 1 tablet Discontinued 1 mg PO DAILY August 30, 2018 12:00am April 12, 2021 3:05pm lisinopril 10 mg oral tablet (8 sources) Angiotensin Converting Enzyme Inhibitor Start: End: take 1 tablet by mouth once daily Lisinopril 10 MG tablet Discontinued 10 mg PO DAILY November 25, 2014 12:00am November 29, 2014 9:17am mecobalamin 1 mg chewable tablet (8 sources) Start: End: take 1 tablet by mouth once daily Mecobalamin (Vitamin B12) 1,000 mcg tablet,chewable Discontinued 1000 ug PO DAILY May 20, 2023 1:00am August 17, 2024 7:53am multivitamin tablet (19 sources) Start: End: take 1 tablet by mouth once daily multivitamin tablet Take 1 tablet by mouth once daily. 0 06/10/2018 10/15/2022 Discontinued (Discontinued by Patient) Start: 06-10-2018 take 1 tablet by seth once daily multivitamin tablet Take 1 tablet by mouth once daily. 0 06/10/2018 Active Comment on above: [facility] NIFEdipine 30 mg osmotic 24 hr extended release oral tablet (20 sources) Dihydropyridine Calcium Channel Regina Start: 05-21-20 End: 09-08-19 take 1 tablet by mouth once daily Nifedipine 30 mg tablet extended release 24hr Discontinued 30 mg PO DAILY March 10, 2023 2:50pm August 30, 2024 4:52pm Start: 03-18-2022 End: 09-07-2024 take 1 tablet by mouth once daily Nifedipine 60 mg tablet extended release 24hr Discontinued 60 mg PO DAILY May 21, 2022 1:00am May 21, 2022 12:42pm Start: 06-28-2021 End: 03-18-2022 take 1 tablet by mouth once daily NIFEdipine ER (PROCARDIA XL) 30 mg 24 hr tablet Indications: Essential (primary) hypertension Take 1 tablet by mouth once daily. 90 tablet 3 06/28/2021 03/18/2022 Discontinued Start: 04-12-2021 End: 05-21-2022 take 1 tablet by mouth once daily Nifedipine 30 mg tablet extended release Discontinued 30 mg PO DAILY April 12, 2021 12:00am May 21, 2022 12:24pm Start: 11-29-2014 End: 04-12-2021 Nifedipine 60 MG tablet exte nded release Discontinued 60 mg PO DAILY November 29, 2014 12:00am April 12, 2021 3:03pm Pt takes 30 mg daliy Comment on above: Take 1 tablet by [facility] once daily. omeprazole 40 mg delayed release oral capsule (20 sources) Proton Pump Inhibitor Start: 03-08-20 End: 09-08-19 take 1 capsule by mouth once daily Omeprazole 40 mg capsule,delayed release(DR/EC) Discontinued 40 mg PO DAILY March 08, 2022 12:00am August 30, 2024 4:47pm Comment on above: Take 1 capsule [facility]. PARoxetine mesylate 20 mg oral tablet (8 sources) Serotonin Reuptake Inhibitor Start: 11-26-19 End: 11-30-19 take 1 tablet by mouth once daily Paroxetine Hcl 20 MG tablet Discontinued 20 mg PO DAILY November 25, 2014 12:00am November 29, 2014 9:18am pravastatin sodium 40 mg oral tablet (8 sources) HMG-CoA Reductase Inhibitor Start: 08-31-19 End: 04-12-20 take 1 tablet by mouth at bedtime Pravastatin 40 MG tablet Discontinued 40 mg PO AT BEDTIME August 30, 2018 12:00am April 12, 2021 3:45pm QUEtiapine 25 mg oral tablet (15 sources) Atypical Antipsychotic Start: 08-31-19 End: 03-06-20 take 1 tablet by mouth once daily at bedtime Quetiapine 25 mg tablet Discontinued 25 mg PO 2100 as needed October 19, 2024 11:18am Take 1 tab at bedtime every night. If agitated during the day can give 25 mg one more time a day as needed. ramipril 10 mg oral capsule (20 sources) Angiotensin Converting Enzyme Inhibitor Start: 12-27-19 End: 08-31-19 take 1 capsule by mouth once daily Ramipril 10 mg capsule Discontinued 10 mg PO DAILY April 12, 2021 3:02pm August 30, 2024 4:52pm Start: 11-29-2014 End: 04-12-2021 take 2 capsules by mouth once daily Ramipril 10 MG capsule Discontinued 20 mg PO DAILY November 29, 2014 12:00am April 12, 2021 3:05pm Comment on above: Take 1 capsule by [facility] once daily. raNITIdine 150 mg oral tablet (8 sources) Histamine-2 Receptor Antagonist Start: End: take 1 tablet by mouth twice daily Ranitidine (Zantac) 150 MG tablet Discontinued 150 mg PO TWICE A DAY August 30, 2018 12:00am April 12, 2021 3:05pm Therapeutic Multivitamin (Therems) 1 EACH tablet (8 sources) Start: End: take 1 tablet by mouth once daily Therapeutic Multivitamin (Therems) 1 EACH tablet Discontinued 1 {tbl} PO DAILY August 30, 2018 12:00am April 12, 2021 3:05pm thiamine 100 mg oral tablet (8 sources) Start: End: take 1 tablet by mouth once daily Thiamine Hcl (Vitamin B1) 100 MG tablet Discontinued 100 mg PO DAILY November 29, 2014 12:00am April 12, 2021 3:05pm 10 actuat tiotropium 0.0025 mg/actuat inhalation spray (16 sources) Anticholinergic Start: 022 End: 023 take 2 puff(s) by inhalation once daily, then take 2 puff(s) by inhalation once daily tiotropium bromide (SPIRIVA RESPIMAT) 2.5 mcg/actuation inhaler Inhale 2 Puffs as instructed once daily. Inhale two puffs once daily. 1 Inhaler 0 07/06/2021 09/04/2022 Discontinued Comment on above: Inhale 2 Puffs as in structed once daily. Inhale two puffs once daily. Problems Active Problems Problem Classification Problem Date Documented Date Episodic/Chronic Acute cerebrovascular disease (20 sources) Cerebrovascular accident; Translations: [Cerebral infarction, unspecified] Onset: 025 08-17-2024 Chronic Comment on above: August 2024- Left sma ll thalamic and punctate right cerebellum infarcts evident on MRI. Etiology is multifactorial. Residual deficits include ataxia of the right upper extremity, minor right facial palsy, and subtle right sided paresthesia of the face, arm and leg. Administrative/socia l admission (2 sources) Driving fitness status; Translations: [Other specified personal risk factors, not elsewhere classified] 09-21-2024 Episodic Alcohol-related disorders (20 sources) Alcohol dependence; Translations: [Alcohol dependence, uncomplicated] Onset: 012 Resolve d: 019 09-08-2018 Chronic Comment on above: According to the analia carr note from vascular surgery in August of 2023 he is still drinking 12 beers a week. 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 Follows with Dr. Joslyn Candelario at [facility]. 04/2021 Aneurysmal d ilatation of the ascending thoracic aorta with a transversedimension of 48.4 mm. 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 There is no known family history of hypercoagulable states. The patient was not on anticoagulation for this prior to his stroke. Conditions associated with dizziness or vertigo (1 source) Dizziness; Translations: [Dizziness and giddiness] 07-20-2024 Episodic Coronary atherosclerosis and other heart disease (15 sources) Non-obstructive atherosclerosis of coronary artery; Translations: [Atherosclerotic heart disease of [place] coronary artery without angina pectoris] Onset: 025 04-12-2021 Chronic Comment on above: Mild to moderate dis ease noted in the right coronary artery and a dominant vessel. 09/11/18 Deficiency and other anemia (2 sources) Anemia; Translations: [Anemia, unspecified] 03-07-2023 Episodic Deficiency and other anemia (12 sources) Normocytic normochromic anemia; Translations: [Anemia, unspecified] 08-19-2024 Episodic Comment on above: I reviewed notes fro m the PCP and he has a history of low iron stores in the past. Deficiency and other anemia (3 sources) Anemia, unspecified; Translations: [Anemia, unspecified type] Onset: Episodic Delirium, dementia, and amnestic and other cognitive disorders (20 sources) Dementia with behavioral disturbance; Translations: [Dementia with behavioral disturbance] Onset: 08-31-2024 Chronic Diabetes mellitus without complication (1 source) Increased glucose level; Translations: [Other abnormal glucose] 03-07-2023 Episodic Disorders of lipid metabolism (20 sources) Hyperlipidemia; Translations: [Hyperlipidemia, unspecified] Onset: 09-11-2018 Chronic Comment on above: Calculated LDL on 40 mg of atorvastatin at admission is greater than 70. Dose will be increased to 80 mg. LDL was 85 on recent labs. Atorvastatin was increased from 40mg to 80mg while hospitalized. Diverticulosis and diverticulitis (13 sources) Diverticular disease; Translations: [Diverticulosis of intestine, part unspecified, without perforation or abscess without bleeding] Onset: 08-19-2024 Chronic Esophageal disorders (16 sources) Gastroesophageal reflux disease without esophagitis; Translations: [Gastro-esophageal reflux disease without esophagitis] Onset: Chronic Essential hypertension (20 sources) Essential hypertension; Translations: [Essential (primary) hypertension] Onset: Chronic Hyperplasia of prostate (1 source) Benign prostatic hyperplasia; Translations: [Benign prostatic hyperplasia without lower urinary tract symptoms] 03-07-2023 Chronic Malaise and fatigue (13 sources) Asthenia; Translations: [Other malaise] Onset: 08-19-2024 Episodic Mood disorders (20 sources) Dysthymia; Translations: [Dysthymic disorder] Onset: 015 09-29-2014 Chronic Comment on above: This is suspected to be acute on chronic, exacerbated by his recent stroke. Prior to this recent hospitalization, the patient was not on any pharmacological therapy for depressive disorder. Mood disorders (1 source) Mood disorders; Translations: [Depression, unspecified] Onset: Nonspecific chest pain (20 sources) Chest pain; Translations: [Chest pain, unspecified] 02-24-2024 Episodic Nutritional deficiencies (20 sources) Vitamin D deficiency; Translations: [Vitamin D deficiency, unspecified] Onset: 014 08-24-2013 Chronic Nutritional deficiencies (13 sources) Wernicke's disease; Translations: [Wernicke's encephalopathy] Onset: 08-19-2024 Episodic Occlusion or stenosis of precerebral arteries (20 sources) Carotid artery stenosis; Translations: [Occlusion and stenosis of unspecified carotid artery] Onset: 025 08-17-2024 Chronic Osteoarthritis (20 sources) Arthritis of hip; Translations: [Unilateral primary osteoarthritis, unspecified hip] Onset: 012 09-02-2011 Chronic Other acquired deformities (3 sources) Deformity of scapula; Translations: [Other specified acquired deformities of musculoskeletal system] Episodic Other aftercare (4 sources) Patient encounter status; Translations: [Other halfway (current) drug therapy] Episodic Other aftercare (1 source) Post-discharge follow-up; Translations: [Encounter for follow-up examination after completed treatment for conditions other than malignant neoplasm] 09-07-2024 Episodic Other and unspecified benign neoplasm (1 source) Fibroma; Translations: [Benign neoplasm of connective and other soft tissue, unspecified] Episodic Other circulatory disease (4 sources) Disorder of artery; Translations: [Disorder of arteries and arterioles, unspecified] 12-13-2022 Chronic Other circulatory disease (1 source) Disorder of arteries and arterioles, unspecified; Translations: [Disorder of artery or arteriole (HCC)] Onset: Chronic Other circulatory disease (2 sources) Disorder of carotid artery; Translations: [Disorder of arteries and arterioles, unspecified] 10-26-2024 Chronic Comment on above: CTA images reviewed: L ICA 47% NASCET, R ICA ~60% (70% by ECST which tends to overestimate, 50% NASCET which likely underestimates due to length of lesion) Other circulatory disease (1 source) Vascular disorder; Translations: [Unspecified disorder of circulatory system] Episodic Other circulatory disease (12 sources) Low blood pressure; Translations: [Hypotension, unspecified] 08-31-2024 Episodic Other circulatory disease (2 sources) Hypotension, unspecified; Translations: [Hypotension, unspecified] Onset: Episodic Other connective tissue disease (17 sources) Weakness of face muscles; Translations: [Facial weakness] 08-19-2024 Episodic Comment on above: Subtle asymmetry inv olving the right side of mouth secondary to recent stroke. The patient and daughter states that he has no difficulty with swallowing. His speech is fluent. Other connective tissue disease (1 source) Facial weakness; Translations: [Facial weakness] Onset: Episodic Other gastrointestinal disorders (12 sources) Oropharyngeal dysphagia; Translations: [Dysphagia, oropharyngeal phase] 08-19-2024 Episodic Other gastrointestinal disorders (1 source) Dysphagia, oropharyngeal phase; Translations: [Dysphagia, oropharyngeal phase] Onset: Episodic Other hereditary and degenerative nervous system conditions (10 sources) Impaired cognition; Translations: [Mild cognitive impairment, so stated] 09-13-2024 Chronic Comment on above: MMSE 25/30. The junie ent struggles with recall. Memory has been declining over the last several years per the family. The patient has a history of Wernicke's encephalopathy. Korsakoff syndrome is of consideration. The patient experienced behavioral disturbances while hospitalized including paranoia, agitation, and insomnia. There is a family history of dementia. Other hereditary and degenerative nervous system conditions (1 source) Mild cognitive impairment, so stated; Translations: [Mild cognitive impairment of uncertain or unknown etiology] Onset: Chronic Other inflammatory condition of skin (20 sources) Psoriasis; Translations: [Other psoriasis] Onset: 008 Resolve d: 010 07-21-2009 Chronic Other nervous system disorders (17 sources) Paresthesia; Translations: [Paresthesia of skin] 08-19-2024 Episodic Comment on above: Subtle sensory elizabeth es noted in the right arm, right face, right leg with no residual weakness. This is secondary to his recent stroke. Other nervous system disorders (17 sources) Ataxia; Translations: [Ataxia, unspecified] 08-19-2024 Episodic Comment on above: Present in the right upper extremity secondary to his recent stroke. The patient completed inpatient physical rehab and was discharged home with home health care. Other nervous system disorders (1 source) Paresthesia of skin; Translations: [Paresthesia of skin] Onset: Episodic Other nervous system disorders (1 source) Ataxia, unspecified; Translations: [Ataxia, unspecified] Onset: Episodic Other skin disorders (1 source) Finding of trunk structure; Translations: [Localized swelling, mass and lump, trunk] Episodic Other upper respiratory infections (1 source) Sore throat symptom; Translations: [Acute pharyngitis, unspecified] 07-20-2024 Episodic Paralysis (13 sources) Right hemiparesis; Translations: [Hemiplegia, unspecified affecting right dominant side] Onset: 08-19-2024 Chronic Peripheral and visceral atherosclerosis (3 sources) Atherosclerosis of aorta; Translations: [Atherosclerosis of aorta] Chronic Pulmonary heart disease (3 sources) Chronic pulmonary embolism; Translations: [Chronic pulmonary embolism] Chronic Residual codes; unclassified (12 sources) Psychomotor agitation; Translations: [Restlessness and agitation] 08-19-2024 Chronic Comment on above: He had this at home prior to the stroke but, has not been physically aggressive. Residual codes; unclassified (1 source) Restlessness and agitation; Translations: [Restlessness and agitation] Onset: Chronic Residual codes; unclassified (2 sources) Memory impairment; Translations: [Other amnesia] 07-22-2024 Episodic Residual codes; unclassified (20 sources) Tobacco user; Translations: [Tobacco use] 08-17-2024 Episodic Residual codes; unclassified (1 source) Tobacco use; Translations: [Tobacco use] Onset: Episodic Screening and history of mental health and substance abuse codes (13 sources) H/O: depression; Translations: [Personal history of other mental and behavioral disorders] Onset: 08-19-2024 Episodic Comment on above: Noncompliant with th e antidepressant prescribed to him Substance-related disorders (20 sources) Tobacco user; Translations: [Nicotine dependence, unspecified, uncomplicated] Onset: 008 08-14-2007 Chronic Unclassified (1 source) Unknown / UNK(Unknown) Onset: 018 Unclassified (1 source) Aneurysm of infrarenal abdominal aorta, unspecified whether ruptured (HCC); Translations: [Aneurysm of infrarenal abdominal aorta, unspecified whether ruptured (HCC)] Onset: 024 Unclassified (2 sources) Unspecified dementia, unspecified severity, with other behavioral disturbance; Translations: [Unspecified dementia, unspecified severity, with other behavioral disturbance] Onset: 025 Unclassified (1 source) Infrarenal abdominal aortic aneurysm, without rupture; Translations: [Infrarenal abdominal aortic aneurysm, without rupture] Onset: 025 Unclassified (1 source) Thoracic aortic aneurysm, without rupture, unspecified; Translations: [Thoracic aortic aneurysm, without rupture, unspecified] Onset: 025 Unclassified (1 source) Abdominal aortic aneurysm, without rupture, unspecified; Translations: [Abdominal aortic aneurysm, without rupture, unspecified] Onset: 025 Past or Other Problems Problem Classification Problem Date Documented Date Episodic/Chronic Allergic reactions (20 sources) Radiation-induced dermatosis; Translations: [Other skin changes due to chronic exposure to nonionizing radiation] Onset: 09-29-2007 07-21-2009 Episodic Fluid and electrolyte disorders (20 sources) Hyponatremia; Translations: [Hypo-osmolality and hyponatremia] Onset: 08-24-2013 08-24-2013 Episodic Mycoses (20 sources) Onychomycosis due to dermatophyte ; Translations: [Tinea unguium] Onset: 09-29-2007 09-29-2007 Episodic Other and unspecified benign neoplasm (20 sources) Benign neoplasm of skin of trunk; Translations: [Other benign neoplasm of skin of trunk] Onset: 09-29-2007 09-29-2007 Episodic Other and unspecified benign neoplasm (20 sources) Melanocytic nevus of face; Translations: [Melanocytic nevi of unspecified part of face] Onset: 07-21-2009 07-21-2009 Episodic Other and unspecified benign neoplasm (20 sources) Melanocytic nevus of trunk; Translations: [Melanocytic nevi of trunk] Onset: 07-21-2009 07-21-2009 Episodic Other and unspecified benign neoplasm (20 sources) Melanocytic nevi of unspecified part of face; Translations: [Benign neoplasm of skin of other and unspecified parts of face] Onset: 07-21-2009 07-21-2009 Episodic Other circulatory disease (20 sources) Spider nevus; Translations: [Nevus, non-neoplastic] Onset: 07-21-2009 07-21-2009 Episodic Other inflammatory condition of skin (20 sources) Seborrheic dermatitis; Translations: [Other seborrheic dermatitis] Onset: 07-21-2009 Resolved: 07-21-2009 07-21-2009 Episodic Other screening for suspected conditions (not mental disorders or infectious disease) (20 sources) Other specified abnormal findings of blood chemistry; Translations: [Other abnormal blood chemistry] Onset: 02-28-2012 02-28-2012 Episodic Other skin disorders (20 sources) Disorder of nail; Translations: [Other nail disorders] Onset: 09-29-2007 09-29-2007 Episodic Other skin disorders (20 sources) Seborrheic keratosis; Translations: [Other seborrheic keratosis] Onset: 09-29-2007 09-29-2007 Episodic Other skin disorders (20 sources) Disorder of skin pigmentation; Translations: [Disorder of pigmentation, unspecified] Onset: 09-29-2007 09-29-2007 Episodic Other skin disorders (20 sources) Solar lentigo; Translations: [Other melanin hyperpigmentation] Onset: 07-21-2009 07-21-2009 Episodic Pulmonary heart disease (20 sources) Pulmonary embolism; Translations: [Other pulmonary embolism without acute cor pulmonale] Onset: 08-20-2018 08-20-2018 Episodic Spondylosis; intervertebral disc disorders; other back problems (20 sources) Low back pain; Translations: [Lumbago] Onset: 08-14-2007 08-14-2007 Episodic Unclassified (1 source) LOW BACK PAIN~ Onset: 09-01-2017 Results Test Name Value Interpretation Reference Range Facility Neurology Visit Reporton Neurology Visit Report [facility] [address] [place] [address], [address] [place] [address] OFFICE VISIT Date of Service: 11/10/24 MR#: [id number] Acct: [id number] Name: LEO ANGELO Rep #: [id number] : 1945 Provider: Dr. Barak thomas MD Age/Sex: 79/M Location[place] [facility] Status: Signed [facility] Chief Complaint: Post strokes. Details: Mr. Angelo is an 79 year old right-handed male who presents for a 2 month follow up on stroke, prothrombin gene mutation, mild cognitive impairment, facial droop, and paresthesia's. This patient presents for follow-up with his daughter present. Patient is seen with nurse practitioner Apryl Claudio. Patient has had an MRI of the brain which had documented presence of an infarct which is small in the right cerebellum and infarct in the left lateral thalamus. Patient has been left with some gait instability with falling to the right, some right-sided weakness which appears to be resolving and sensory impairment right face arm and leg. In addition to this patient has a profound recent memory defect which appears to be progressive. Patient does have a remote history of alcoholism and there is a question of Korsakoff's amnestic s [place]. The patient lives with his . Patient has a daughter that is involved in managing their medical appointments. Patient's pays the bills for the home. 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 Patient is advised not drive at this point in time. Both the patient and daughter were present at the time this recommendation was made. Vascular service is seeing this gentleman. 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 It is important to note that the patient has been told in the past that he had an abnormal gene making him susceptible to clots. No history of DVT or pulmonary emboli have been noted thus far. MRI of the brain was reviewed in detail and the infarcts which were noted above were reviewed. In addition to that patient does appear to have significant atrophy in both parietal lobes and mesial temporal lobes. This is on my personal review of the images with the patient present. ROS: No new complaints voiced by patient at this time. Patient minimizes the effect of profound recent memory defect. Patient is not had alcohol for about 15 years according to the daughter. Exam Const Other: Blood pressure 92/52 pulse 82 respiration 15 temperature 98.2 O2 sat 95%. BMI is 20%. Daughter indicates patient is lost 4 pounds since last visit several months ago. Patient's appetite is suppressed. Neurologic examination: Mental status: Patient is awake alert and is oriented to person. I think he is aware that he is in [place]. He is able to identify month day and year. Recent memory testing however is 0 for 3. Patient had a Mini-Mental status suggesting a score of 25/30 but I believe his impairment is more significant than he does have impaired executive capabilities. Planning and insight and judgment appears to be impaired. No hallucinations or delusions were identified. CN II-XII: Pupils equal round react to light. No definite visual field defect noted. Fundi not examined. Extraocular muscles are intact without nystagmus. Motor and sensory function of face shows that he does have decreased sensation over the Maller portion of the right face. At this point I do not see an obvious 7th nerve palsy. Hearing appears to be intact. Swallowing phonation and tongue appear to be intact. Motor exam: No definite weakness of arms or legs on manual testing but when he walks there does appear to be some decreased strength in the right leg. Patient is thinly built he appears to be losing significant amount of muscle mass. Cerebellar testing showed normal finger-nose maneuvers. No cogwheeling rigidity tremor or bradykinesia noted. He does have some instability when standing and when walking to be described below. Reflexes 2+ right arm 1+ left arm 4+ right knee 3+ left knee. Toe signs not checked at this time. Sensory exam shows that he has a definite decrease in vibration below the knees bilaterally symmetric. He also has a decrease in tactile sense right arm and right leg but intact on the left side. This is a mixed sensory pattern. It is likely patient does have bilateral lower extremity peripheral neuropathy possibly related to prior history of heavy alcohol intake. Superimposed on that would be his sensory deficit due to a left thalamic infarct. Assessment and Plan Assessment and Plan (1) Stroke: Status: Acute Qualifiers: Qualified Code(s): I63.9 - Cerebral infarction, unspecified Comment: August 2024- Left small thalamic and punctate right cerebellum infarcts evident on MRI. Etiology is multifactorial. Residual deficits include atax (more content not included)... Normal [facility] Abd Aortic/IVC Duplex scanon 11-04-2024 Abd Aortic/IVC Duplex scan [facility] [address] [place] [address] Abd Aortic/IVC Duplex scan 11/04/24 0855 MR#: [id number] Acct: [id number] Name: LEO ANGELO Rep #: [id number] : 1945 79 From: Enzo Marina MD Attending Dr: YAQUELIN Bartlett Status: DEP CLI Ordering Dr: Nissa Conroy Date: 11/04/24 Location: [facility] Sex: M C Admitted: Reason For Study Reason For Study: AAA Aorta Measurements Aorta Doppler Measurements Proximal aorta measures2.85x3.04cm. in cross-sectional axis.Peak systolic flow velocities within the proximal aorta Proximal aorta measures2.41cm. in longitudinal axis. measure 40.2 cm/sec. Mid aorta measures4.81x5.21cm. in cross-sectional axis. Peak systolic flow velocities within the mid aorta measure Mid aorta measures4.88cm. in longitudinal axis. 45.9 cm/sec. Distal aorta measures3.14x2.78cm. in cross-sectional axis. Peak systolic flow velocities within the distal aorta Distal aorta measures2.90cm. in longitudinal axis. measure 24.9 cm/sec. Left Iliac Artery Left iliac artery measures 1.04x1.14 cm. in the cross-sectional axis. Left iliac artery measures 1.01 cm. in the longitudinal axis. Peak systolic velocity in the left iliac artery measures 71.0 cm/sec. Right Iliac Artery Right iliac artery measures 0.84 cm. in the longitudinal axis. Right iliac artery measures 0.80x0.81 cm. in the cross- sectional axis. Peak systolic velocity in the right iliac artery measures 73.2 cm/sec. Procedure Aorta IVC Iliac vasculature or bypass grafts 63881. Exam performed in department. VL/Abd Aortic/IVC Duplex scan Interpretation Summary Aorta patent with 5.37 cm aneurysm present. Bilateral iliac arteries patent, normal caliber. Ordering Physician: Nissa Conroy Referring Physician: Sera Castillo MD Performed By: Sirisha Bergman RVT 11/11/24928 Date Enzo Marina MD CC: YAQUELIN Bartlett; Dr. Sera Castillo MD Date Dictated: 11/04/24854 Date Transcribed: 11/11/24928 Hand Ii Blocker: Signed Normal [facility] Anion gap in Serum or Plasma Ordered By: Nissa Conroy on 10-19-2024 Anion gap [Moles/Vol] 10 mmol/L 5-15 [facility] BUN/creatinine ratioOrdered By: Nissa Conroy on 10-19-2024 Urea nitrogen/Creatinine [Mass ratio] 42.7 mg/mg High 10-20 [facility] Bilirubin, totalOrdered By: Nissa Conroy on 10-19-2024 Bilirubin [Mass/Vol] 0.30 mg/dL 0.00-1.30 [facility] Carbon dioxide, total [Moles /volume] in Central venous bloodOrdered By: Nissa Conroy on 10-19-2024 CO2 [Moles/Vol] 22.3 mmol/L 21.0-32.0 [facility] Chloride assayOrdered By: Diallo Conroy on 10-19-2024 Chloride [Moles/Vol] 106 mmol/L 98-108 [facility] Comprehensive Metabolic Prof ilon 10-19-2024 Albumin [Mass/Vol] 4.0 g/dL Normal 3.4-4.8 [facility] Comment on above: Performed By: #### L 500.4050, L501.2300, L501.5200, L100.0100 #### [facility] [address] [place], [address] Albumin/Globulin [Mass ratio] 1.8 {ratio} Normal 0.9-2.4 [facility] Comment on above: Performed By: #### L 500.4050, L501.2300, L501.5200, L100.0100 #### [facility] [address] [place], [address] ALK PHOS 87 U/L Normal 40-129 [facility] Comment on above: Performed By: #### L 500.4050, L501.2300, L501.5200, L100.0100 #### [facility] [address] [place], [address] ALT [Catalytic activity/Vol] 14 U/L Normal <=46 [facility] Comment on above: Performed By: #### L 500.4050, L501.2300, L501.5200, L100.0100 #### [facility] [address] [place], [address] AST [Catalytic activity/Vol] 20 U/L Normal <=37 [facility] Comment on above: Performed By: #### L 500.4050, L501.2300, L501.5200, L100.0100 #### [facility] [address] [place], [address] Bilirubin [Mass/Vol] 0.30 mg/dL Normal 0.00-1.30 [facility] Comment on above: Performed By: #### L 500.4050, L501.2300, L501.5200, L100.0100 #### [facility] [address] [place], [address] BUN/CRE 42.7 RATIO High 10-20 [facility] Comment on above: Performed By: #### L 500.4050, L501.2300, L501.5200, L100.0100 #### [facility] [address] [place], [address] Calcium [Mass/Vol] 9.0 mg/dL Normal 7.6-11.0 [facility] Comment on above: Performed By: #### L 500.4050, L501.2300, L501.5200, L100.0100 #### [facility] [address] [place], [address] Chloride [Moles/Vol] 106 mmol/L Normal 98-108 [facility] Comment on above: Performed By: #### L 500.4050, L501.2300, L501.5200, L100.0100 #### [facility] [address] [place], [address] CO2 [Moles/Vol] 22.3 mmol/L Normal 21.0-32.0 [facility] Comment on above: Performed By: #### L 500.4050, L501.2300, L501.5200, L100.0100 #### [facility] [address] [place], [address] Creatinine [Mass/Vol] 0.75 mg/dL Normal 0.70-1.20 [facility] Comment on above: Performed By: #### L 500.4050, L501.2300, L501.5200, L100.0100 #### [facility] [address] [place], [address] GAP 10 Normal 5-15 [facility] Comment on above: Performed By: #### L 500.4050, L501.2300, L501.5200, L100.0100 #### [facility] [address] [place], [address] GFR/1.73 sq M.predicted among non-blacks MDRD (S/P/Bld) [Vol rate/Area] 91 mL/min/{1.73_m2} Normal >60 [facility] Comment on above: Result Comment: mL/m in/1.73m2 CKD-EPI Creatinine Equation (2020) Performed By: #### L 500.4050, L501.2300, L501.5200, L100.0100 #### [facility] [address] [place], [address] Globulin (S) [Mass/Vol] 2.3 g/dL Normal 2.2-4.2 [facility] Comment on above: Performed By: #### L 500.4050, L501.2300, L501.5200, L100.0100 #### [facility] [address] [place], [address] Glucose [Mass/Vol] 99 mg/dL Normal 70-99 [facility] Comment on above: Performed By: #### L 500.4050, L501.2300, L501.5200, L100.0100 #### [facility] [address] [place], [address] Potassium [Moles/Vol] 4.2 mmol/L Normal 3.3-5.1 [facility] Comment on above: Performed By: #### L 500.4050, L501.2300, L501.5200, L100.0100 #### [facility] [address] [place], [address] Sodium [Moles/Vol] 138 mmol/L Normal 133-145 [facility] Comment on above: Performed By: #### L 500.4050, L501.2300, L501.5200, L100.0100 #### [facility] [address] [place], [address] T PROT 6.3 g/dL Normal 5.9-8.4 [facility] Comment on above: Performed By: #### L 500.4050, L501.2300, L501.5200, L100.0100 #### [facility] [address] [place], [address] Urea nitrogen [Mass/Vol] 32 mg/dL High 4-19 [facility] Comment on above: Performed By: #### L 500.4050, L501.2300, L501.5200, L100.0100 #### [facility] [address] [place], [address] Glomerular filtration rate ( GFR) estimation/1.73 sq m using serum, plasma, or whole bOrdered By: Nissa Conroy on 10-19-2024 GFR/1.73 sq M.predicted among non-blacks MDRD (S/P/Bld) [Vol rate/Area] 91 mL/min/{1.73_m2} >60 [facility] Comment on above: mL/min/1.73m2 CKD-EP I Creatinine Equation (2020) Laboratory - Chemistry and C hemistry - challengeOrdered By: Nissa Conroy on 10-19-2024 AST [Catalytic activity/Vol] 20 U/L <38 [facility] MR/BMS.BVSon 10-19-2024 MR/BMS.BVS [facility] [address] [place] [address] OFFICE VISIT Date of Service: 10/19/24 MR#: [id number] Acct: [id number] Name: LEO ANGELO Rep #: [id number] : 1945 Provider: YAQULEIN Bartlett Age/Sex: 79/M Location: [facility] Status: Signed Intake Vital Signs 09/13/24 08:15 10/19/24 11:16 Height 5 ft 7 in Weight: 132 lb 132 lb BMI 20.7 BP 120/50 L 110/64 Blood Pressure Location Lt brachial Lt brachial Position Sitting Sitting Respiration 15 16 Pulse 87 67 Pulse Source Monitor Monitor Temp 98.0 F 98.6 F Temp Source Temporal Temporal Pulse Oximetry (%) 95 99 Oxygen Delivery Method room air room air Intake Visit Reasons: Hospitalization FU post stroke Chief Complaint: Establish Care Is patient in pain?: No Allergies latex Allergy (Verified 10/19/24 11:17) Rash Medications ???Medication ???Instructions ???Recorded ???Confirmed ???Type acetaminophen 325 mg tablet 650 mg (2 x 325 mg) PO Q6H PRN PRN 08/30/24 10/19/24 Rx Pain Score 1-10 #1 TAB aspirin 81 mg chewable tablet 81 mg PO DAILY heart health #90 10/19/24 Rx tabs atorvastatin 80 mg tablet 80 mg PO QHS #30 tabs 08/30/24 Rx calcium carb 800 mg-magnes hydrox 15 ml PO Q6H PRN PRN heartburn 10/19/24 Rx 270 mg-simeth 80 mg/10 mL oral #355 mL susp (Mylanta Tonight) clopidogrel 75 mg tablet 75 mg PO DAILY anticoag #30 tabs 0 08/30/24 10/19/24 Rx nifedipine 30 mg tablet,extended 30 mg PO DAILY BP #30 tabs 5 10/19/24 Rx release 24 hr ramipril 10 mg capsule 10 mg PO DAILY BP #30 caps 5 10/19/24 Rx sertraline 50 mg tablet 50 mg PO DAILY #30 tabs 08/30/24 0 10/19/24 Rx quetiapine 25 mg tablet 25 mg PO 2100 PRN 10/19/24 Histor y Have you fallen in the past year?: No [facility] Medical History (Updated 10/26/24 @ 10:45 by YAQUELIN Bartlett) Thoracic aortic aneurysm (TAA) Aneurysm of right subclavian artery AAA (abdominal aortic aneurysm) without rupture Hyperlipidemia Prothrombin gene mutation Depression Dementia with behavioral disturbance Carotid stenosis Wernickes encephalopathy Cognitive dysfunction History of depression History of alcoholism Diverticulosis GERD (gastroesophageal reflux disease) HTN (hypertension) Tobacco abuse Aortic mural thrombus Nonobstructive atherosclerosis of coronary artery Wernicke-Korsakoff syndrome (alcoholic) Alcoholism Major depression COPD (chronic obstructive pulmonary disease) Surgical History History of total right hip replacement History of left heart catheterization (09/11/18) Family History Mother CVA (cerebral vascular accident) Social History household members: spouse number of children: 2 current occupational status: retired Smoking Status: Heavy Smoker (>10/day) alcohol intake: former details: He denies but, the last progress note from [facility] from August of 2023 says yes substance use type: does not use caffeine: Yes Type: coffee HPI HPI HPI: LEO ANGELO, is a 79 M who presents to the office today for evaluation of aneurysmal disease and carotid artery disease following recent hospitalization and rehab admission due to acute CVA. He also has Wernicke's encephalopathy and suspected Alzheimer's. His daughter is present at the appointment and supplements history. He had presented to [facility] ER 08/17/24 with R-sided hemiparesis and mild R facial droop. Head/neck CTA with radiology reporting R vertebral artery occlusion, basilar artery thrombosis, R subclavian partial thrombus of visualized segment, >70% left ICA and 50% LANIE stenosis. Brain MRI demonstrated R cerebellar and L thalamic stroke and abnormal posterior circulation flow voids. Carotid duplex suggested 50-69% stenosis bilaterally. He did not receive TNK due to being outside the window. Teleneuro eval did not feel transfer for intervention was indicated. He progressed through his admission and was discharged to the rehab unit where he progressed well with PT/OT. Today, he reports he has regained much of the function in his RUE and RLE. He reports he still has some numbness/paresthesias through the R side. He has also noticed over the last several days increased facial twitching on the R side. He denies any RUE claudication. He is taking ASA 81mg daily and atorvastatin 80mg daily. He has a history of known AAA and thoracic aortic aneurysm which has been followed by Dr. Candelario at [facility]. He did not have prior knowledge of the subclavian artery aneurysm. They are not sure if there was prior knowledge of carotid disease. He has not had any prior vascular surgical interventi (more content not included)... Normal [facility] Potassium measurement (mass/ volume)Ordered By: Nissa Conroy on 10-19-2024 Potassium (Unsp spec) [Mass/Vol] 4.2 mmol/L 3.3-5.1 [facility] Serum creatinine measurement (mass/volume)Ordered By: Nissa Conroy on 10-19-2024 Creatinine [Mass/Vol] 0.75 mg/dL 0.70-1.20 [facility] Serum globulin measurementOr dered By: Nissa Conroy 10-19-2024 Globulin (S) [Mass/Vol] 2.3 g/dL 2.2-4.2 [facility] Serum glucose measurement (m ass/volume)Ordered By: Nissa Conroy 10-19-2024 Glucose [Mass/Vol] 99 mg/dL 70-99 [facility] Serum or plasma alanine solano otransferase (ALT) measurementOrdered By: Nissa Conroy on 10-19-2024 ALT [Catalytic activity/Vol] 14 U/L <47 [facility] Serum or plasma albumin oscar urement (mass/volume)Ordered By: Nissa Conroy on 10-19-2024 Albumin [Mass/Vol] 4.0 g/dL 3.4-4.8 [facility] Serum or plasma albumin/glob ulin mass ratioOrdered By: Nissa Rafiq on 10-19-2024 Albumin/Globulin [Mass ratio] 1.8 {ratio} 0.9-2.4 [facility] Serum or plasma alkaline jaime sphatase measurementOrdered By: Nissa Rafiq on 10-19-2024 ALP [Catalytic activity/Vol] 87 U/L 40-129 [facility] Serum or plasma calcium oscar urement (mass/volume)Ordered By: Nissafredrick Conroy on 10-19-2024 Calcium [Mass/Vol] 9.0 mg/dL 7.6-11.0 [facility] Serum or plasma urea nitroge n measurement (mass/volume)Ordered By: Nissafredrick Conroy on 10-19-2024 Urea nitrogen [Mass/Vol] 32 mg/dL High 4-19 [facility] Sodium levelOrdered By: Francis ray Rafiq on 10-19-2024 Sodium [Moles/Vol] 138 mmol/L 133-145 [facility] Total proteinOrdered By: Roberto hellersamira Conroy on 10-19-2024 Protein [Mass/Vol] 6.3 g/dL 5.9-8.4 [facility] CNOVon 09-21-2024 CNOV Office Visit (INTMWS ) LEO ANGELO ([id number]) 1945 M Date Time Provider Department 09/21/24 9:00 AM SERA CASTILLO INTMWS During your visit today, we recorded the following information about you: Pulse Blood pressure Weight 94/minute 110/68 59.1 kg Sera Castillo MD 09/21/2024 10:08 AM Signed Reason for Visit Driving safety IZAIAH Carlin is a 79-year-old male with a history of CAD, abdominal aortic aneurysm, Wernicke's encephalopathy, depression, COPD, HTN, diverticulosis, and prothrombin gene mutation, presenting to discuss a driving evaluation following a recent CVA. Leo was recently admitted to [facility] for a CVA and subsequently underwent rehabilitation. He is seeking to resume driving and is accompanied by his daughter, who is advocating on his behalf. Leo has not driven since the CVA, as he was uncertain if he was permitted to do so. He expresses a desire to drive locally within [place], specifically to places like the [facility] and [employer], and does not wish to drive outside of [place] or on the interstate. He has a long history of safe driving, with no accidents and only one speeding ticket in 1968. Leo's daughter expresses concerns about her father's ability to pass a driving test in an unfamiliar city, as [place] no longer offers driving tests. She believes that driving in an unfamiliar area would make him nervous and anxious, potentially affecting his performance. She also notes that her father has not had any vision abnormalities and is currently wearing a heart monitor ordered by a neurologist to check for mini strokes. He is on anticoagulant therapy and has not consumed alcohol for approximately 12 years. Leo denies any history of KS, DM, or Parkinson's disease. He reports occasional forgetfulness, such as misplacing his wallet, but his daughter notes that this has been a long-standing issue and is not new. Social History Tobacco Use Smoking status: Every Day Current packs/day: 0.50 Average packs/day: 0.5 packs/day for 61.3 years (30.6 ttl pk-yrs) Types: Cigarettes Start date: [birth year]09/1964 Smokeless tobacco: Never Tobacco comments: varies day to day--now 0.5PPD or less, usually less Vaping Use Vaping status: Never Used Substance Use Topics Alcohol use: No Alcohol/week: 12.0 standard drinks of alcohol Types: 12 Cans of Beer (12oz) per week Comment: Was discussed with Dr. Rob at pre-op eval 11/19/11 Drug use: No Past medical history, appointments, medications, allergies reviewed. Pertinent Lab/Diagnostic Studies are reviewed and discussed today Current Outpatient Medications: NIFEdipine ER (PROCARDIA XL) 30 mg 24 hr tablet atorvastatin (LIPITOR) 80 mg tablet clopidogrel (PLAVIX) 75 mg tablet QUEtiapine (SEROQUEL) 25 mg tablet sertraline (ZOLOFT) 50 mg tablet ramipril (ALTACE) 10 mg capsule cyanocobalamin (VITAMIN B-12) 1,000 mcg tab OTC PRODUCT aspirin, enteric coated (ASPIRIN, ENTERIC COATED) 81 mg EC tablet Health Maintenance Pneumococcal Vaccine: 50+(2 of 2 - PCV) RSV Vaccine(1 - 1-dose 75+ series) Shingrix Vaccine(3 of 3) Influenza Vaccine(1) Covid-19 Vaccine( - season) Advance Directive Discussion@ Review Of Systems Eyes: (-) visual disturbances Neurological: (+) mild memory lapses Psychiatric: (+) anxiety Physical Exam BP 110/68 Pulse 94 Wt 59.1 kg (130 lb 3.2 oz) SpO2 98% BMI 20.70 kg/m? GENERAL: NAD, alert and oriented SKIN: unremarkable, no rash or skin lesions. HEAD: normocephalic EYES: PERRLA, EOMI, conjunctiva clear EARS: Tested peripheral vision, grossly normal both eyes LUNGS: Clear to auscultation bilaterally, no wheezes/rhonchi/rales. HEART: Regular rate and rhythm, no murmurs. No ectopy. EXTREMITIES: Normal, No deformities, No skin discoloration, No edema. NEURO: Awake, alert and oriented x3, cranial nerves II-XII grossly intact, normal gait, no involuntary motions Assessment and Plan 1. Cerebrovascular accident (CVA), unspecified mechanism (HCC) (I63.9) Recent CVA with subsequent rehabilitation. Currently wearing a heart monitor as ordered by neurology to check for potential mini-strokes. - Continue monitoring with heart monitor. - Follow-up with neurology as scheduled. 2. Hypertension, unspecified type (I10) Chronic condition, currently managed. 3. Abdominal aortic aneurysm (AAA) without rupture, unspecified part (I71.40) Stable, under regular surveillance. 4. Driving safety issue (Z91.89) Concerns about driving safety post-CVA. No visual field deficits noted on examination. Patient expresses desire to continue driving locally. - Recommended simulated driving test in [place] within 6 months. - Advised to complete a vision exam at the [facility]. - Provided temporary driving privileges for local driving pending completion of the above requirements. 5. Prothr (more content not included)... Normal [facility] AT III Func / Immunolon - AT3 AG, IMMUNOL 94 Normal 72-124 [facility] Comment on above: Order Comment: Test( s) 501057-Xajkczktgkjo Antigenwas developed and its performance characteristicsdetermined by [facility]. It has not been cleared or approvedby the Food and Drug Administration. Performed By: #### L 500.4050, L501.2300, L501.5200, L100.0100 #### [facility] [address] [place], [address] AT3 FUNCTIONAL 131 Normal 75-135 [facility] Comment on above: Order Comment: Test( s) 237885-Rkvyuppweajo Antigenwas developed and its performance characteristicsdetermined by [employer]. It has not been cleared or approvedby the Food and Drug Administration. Result Comment: Dire ct Xa inhibitor anticoagulants such as rivaroxaban, apixaban and edoxaban will lead to spuriously elevated antithrombin activity levels possibly masking a deficiency. Performed By: #### L 500.4050, L501.2300, L501.5200, L100.0100 #### [facility] [address] [place], [address] Anticardiolipin IgA,G,Mon ANTICARDIO IgA < 9 Normal 0-11 [facility] Comment on above: Order Comment: Test( s) 381590-Vxfbavafkgca Antigenwas developed and its performance characteristicsdetermined by [employer]. It has not been cleared or approvedby the Food and Drug Administration. Result Comment: Nega tive: <12 Indeterminate: 12 - 20 Low-Med Positive: >20 - 80 High Positive: >80 Performed By: #### L 500.4050, L501.2300, L501.5200, L100.0100 #### [facility] [address] [place], [address] ANTICARDIO IgG < 9 Normal 0-14 [facility] Comment on above: Order Comment: Test( s) 399338-Inrnmsatkgrb Antigenwas developed and its performance characteristicsdetermined by [facility]. It has not been cleared or approvedby the Food and Drug Administration. Result Comment: Nega tive: <15 Indeterminate: 15 - 20 Low-Med Positive: >20 - 80 High Positive: >80 Performed By: #### L 500.4050, L501.2300, L501.5200, L100.0100 #### [facility] [address] [place], [address] Anticardio.IgM < 9 Normal 0-12 [facility] Comment on above: Order Comment: Test( s) 106697-Tonslkjeaafn Antigenwas developed and its performance characteristicsdetermined by [facility]. It has not been cleared or approvedby the Food and Drug Administration. Result Comment: Nega tive: <13 Indeterminate: 13 - 20 Low-Med Positive: >20 - 80 High Positive: >80 Performed By: #### L 500.4050, L501.2300, L501.5200, L100.0100 #### [facility] [address] [place], [place], [id number] Complement C3on 09-19-2024 COMP C3 117 mg/dL Normal 82-167 [facility] Comment on above: Order Comment: Test( s) 409781-Xrtbhdyastvn Antigenwas developed and its performance characteristicsdetermined by [facility]. It has not been cleared or approvedby the Food and Drug Administration. Performed By: #### L 500.4050, L501.2300, L501.5200, L100.0100 #### [facility] [address] [place], [place], [id number] Complement C4on 09-19-2024 COMPLEMENT, C4 22 mg/dL Normal 12-38 [facility] Comment on above: Order Comment: Test( s) 420471-Bldqxtylrwht Antigenwas developed and its performance characteristicsdetermined by [facility]. It has not been cleared or approvedby the Food and Drug Administration. Performed By: #### L 500.4050, L501.2300, L501.5200, L100.0100 #### [facility] [address] [place], [place], [address] Complement CH50on 09-19-2024 COMPLEMENT,CH50 > 60 Normal >41 [facility] Comment on above: Order Comment: Test( s) 275423-Bvkrzpfdsyfs Antigen was developed and its performance characteristics determined by [facility]. It has not been cleared or approved by the Food and Drug Administration. Result Comment: Age Male Female 1 - 30 days Not Estab. Not Estab. 31 days - 6 months >32 >20 7 months - 17 years >39 >39 >17 years >41 >41 NOTE: The adult (>17 years) reference interval range is used to flag abnormals on this report. If the patient is 17 years old or younger, use the table above to determine out of range values. Performed By: #### L 3100.8408, L3100.5450, L3300.0960, L3100.7325, L3100.7050, L3100.5800, L501.6710, L3300.0450, L3300.8000, L4500.0100, L4500.2000, L3100.7250, L101.9900, L3100.5600, L4500.5000, L3100.5700 #### [facility] [address] [place], [place], [id number] Fact V Leiden Mutationon FACTOR V LEIDEN Comment Normal . [facility] Comment on above: Order Comment: Test( s) 193434-Djkbadnoatmx Antigenwas developed and its performance characteristicsdetermined by [facility]. It has not been cleared or approvedby the Food and Drug Administration. Result Comment: Resu lt: c.1601G>A (p.[id number]) - Not Detected This result is not associated with an increased risk for venous thromboembolism. See Additional Clinical Information and Comments. Additional Clinical Information: Venous thromboembolism is a multifactorial disease influenced by genetic, environmental, and circumstantial risk factors. The c.1601G>A (p. [id number]) variant in the F5 gene, commonly referred to as Factor V Leiden, is a genetic risk factor for venous thromboembolism. Heterozygous carriers of this variant have a 6- to 8-fold increased risk for venous thromboembolism. Individuals homozygous for this variant (ie, with a copy of the variant on each chromosome) have an approximately 80-fold increased risk for venous thromboembolism. Individuals who carry both a c.*97G>A variant in the F2 gene and Factor V Leiden have an approximately 20-fold increased risk for venous thromboembolism. Risks are likely to be even higher in more complex genotype combinations involving the F2 c.*97G>A variant and Factor V Leiden (PMID: 62807371). Additional risk factors include but are not limited to: deficiency of protein C, protein S, or antithrombin III, age, male sex, personal or family history of deep vein thromboembolism, smoking, surgery, prolonged immobilization, malignant neoplasm, tamoxifen treatment, raloxifene treatment, oral contraceptive use, hormone replacement therapy, and . Management of thrombotic risk and thrombotic events should follow established guidelines and fit the clinical circumstance. This result cannot predict the occurrence or recurrence of a thrombotic event. Comment: Genetic counseling is recommended to discuss the potential clinical implications of positive results, as well as recommendations for testing family members. Genetic Coordinators are available for health care providers to discuss results at [phone] ([phone]). Test Details: Variant Analyzed: c.1601G>A (p. [id number]), referred to as Factor V Leiden Methods/Limitations: DNA analysis of the F5 gene (NM_000130.5) was performed by PCR amplification followed by restriction enzyme analysis. The diagnostic sensitivity is >99%. Results must be combined with clinical information for the most accurate interpretation. Molecular-based testing is highly accurate, but as in any laboratory test, diagnostic errors may occur. False positive or false negative results may occur for reasons that include genetic variants, blood transfusions, bone marrow transplantation, somatic or tissue-specific mosaicism, mislabeled samples, or erroneous representation of family relationships. This test was developed and its performance characteristics determined by [facility]. It has not been cleared or approved by the Food and Drug Administration. References: Adryan S, Genesis AK, Hasmukh R, Miguel WW, Celestine WATKINS; [employer] Professional Practice and Guidelines Committee. Addendum: [place] [employer] consensus statement on factor V Leiden mutation testing. [employer]. 2020Aug 11. doi: 10.1038/j79930-567-49014-l. PMID: 97917866. Slim COELHO. Factor V Leiden Thrombophilia. 1998October 20 (Updated 2017Jun 12). In: Tomy MP, Maxx HH, Renate RA, et al., editors. Bhaskar(R) (Internet). [place] ([place]): [facility]; [phone]. Available from: https://www.ncbi.nlm.nih.gov/books/JVS2303/ Ranulfo S, Genesis AK, Holden X, Javier B, Sathish EB, Hermila P, Lupis CS; [employer] Laboratory Licensed Funeral Director And Embalmer Committee. Venous thromboembolism laboratory testing (factor V Leiden and factor II c.*97G>A), 2018 update: a technical standard of the [employer] [employer] ([employer]). [employer] Med. 2018 May;20(12):6043-6702. doi: 10.1038/x58203-511-5259-x. Epub 2017Mar 13. PMID: 33878924. Performed By: #### L 500.4050, L501.2300, L501.5200, L100.0100 #### [facility] [address] [place], [place], [id number] Reviewed By Comment Normal . [facility] Comment on above: Order Comment: Test( s) 648070-Dwxrnhocgppy Antigenwas developed and its performance characteristicsdetermined by [facility] [facility]. It has not been cleared or approvedby the Food and Drug Administration. Result Comment: Tech nical Component performed at [facility] RTP Professional Component performed by: [employer] Caleb Rand, Ph.D., [facility] Director, Molecular [employer] [address] [facility] [address] Performed By: #### L 500.4050, L501.2300, L501.5200, L100.0100 #### [facility] [address] [place], [address] Factor II, DNA Analysison FACTOR II, DNA Comment Abnormal . [facility] Comment on above: Order Comment: Test( s) 027427-Snjfjgabqqji Antigenwas developed and its performance characteristicsdetermined by [employer]. It has not been cleared or approvedby the Food and Drug Administration. Result Comment: Resu lt: c.*97G>A - Detected, Heterozygous This result is consistent with a 2- to 4-fold increased risk for venous thromboembolism. See Additional Clinical Information and Comments. Additional Clinical Information: Venous thromboembolism is a multifactorial disease influenced by genetic, environmental, and circumstantial risk factors. The c.*97G>A variant in the F2 gene is a genetic risk factor for venous thromboembolism. Heterozygous carriers have a 2- to 4-fold increased risk for venous thromboembolism. Homozygotes for the c.*97G>A variant are rare. The annual risk of VTE in homozygotes has been reported to be 1.1%/year. Individuals who carry both a c.*97G>A variant in the F2 gene and a c.1601G>A (p. Lpt323Irj) variant in the F5 gene (commonly referred to as Factor V Leiden) have an approximately 20- fold increased risk for venous thromboembolism. Risks are likely to be even higher in more complex genotype combinations involving the F2 c.*97G>A variant and Factor V Leiden (PMID: 36419689). Additional risk factors include but are not limited to: deficiency of protein C, protein S, or antithrombin III, age, male sex, personal or family history of deep vein thromboembolism, smoking, surgery, prolonged immobilization, malignant neoplasm, tamoxifen treatment, raloxifene treatment, oral contraceptive use, hormone replacement therapy, and . Management of thrombotic risk and thrombotic events should follow established guidelines and fit the clinical circumstance. This result cannot predict the occurrence or recurrence of a thrombotic event. Comments: Genetic counseling is recommended to discuss the potential clinical implications of positive results, as well as recommendations for testing family members. Genetic Coordinators are available for health care providers to discuss results at [phone] Test Details: Variant analyzed: c.*97G>A, previously referred to as [id number] Methods/Limitations: DNA analysis of the F2 gene (NM_000506.5) was performed by PCR amplification followed by restriction enzyme analysis. The diagnostic sensitivity is >99%. Results must be combined with clinical information for the most accurate interpretation. Molecular-based testing is highly accurate, but as in any laboratory test, diagnostic errors may occur. False positive or false negative results may occur for reasons that include genetic variants, blood transfusions, bone marrow transplantation, somatic or tissue-specific mosaicism, mislabeled samples, or erroneous representation of family relationships. This test was developed and its performance characteristics determined by [employer]. It has not been cleared or approved by the Food and Drug Administration. References: Adryan S, Genesis MOONEY, Hasmukh R, Miguel WW, Celestine JH; [employer] Professional Practice and Guidelines Committee. Addendum: [employer] [employer] consensus statement on factor V Leiden mutation testing. [facility] Med. 2020Aug 11. doi: 10.1038/[id number]-d. PMID: 25451811. Slim COELHO. Prothrombin Thrombophilia. 2005Dec 31 [Updated 2020Jul 13]. In: Tomy MP, Maxx HH, Renate RA, et al., editors. Bhaskar(R) [Internet]. [place] ([place]): [facility]; 7339-4846. Available from: https://www.ncbi.nlm.nih.gov/books/LTO6055/ Ranulfo Bobo, Genesis MOONEY, Navin X, Javier B, Sathish EB, Hermila P, Lupis CS; [employer] Laboratory Licensed Funeral Director And Embalmer Committee. Venous thromboembolism laboratory testing (factor V Leiden and factor II c.*97G>A), 2018 update: a technical standard of the [employer] [employer] and [employer]omics (ACMG). [facility] Med. 2018 May;20(12):0605-7160. doi: 10.1038/[id number]-a. Epub 2017Mar 13. PMID: 90414456. Performed By: #### L 500.4050, L501.2300, L501.5200, L100.0100 #### [facility] [address] [place], [address] Lupus Anticoagulant Compon 0 - aPTT Coag (Bld) [Time] 38.5 s Normal 0.0-43.5 [facility] Comment on above: Order Comment: Test( s) 733385-Ncvwqwkghxyo Antigenwas developed and its performance characteristicsdetermined by [employer]. It has not been cleared or approvedby the Food and Drug Administration. Performed By: #### L 500.4050, L501.2300, L501.5200, L100.0100 #### [facility] [address] [place], [address] DILUTE PT (dPT) 37.4 sec Normal 0.0-47.6 [facility] Comment on above: Order Comment: Test( s) 979609-Qdagoaqivqcx Antigenwas developed and its performance characteristicsdetermined by [employer]. It has not been cleared or approvedby the Food and Drug Administration. Performed By: #### L 500.4050, L501.2300, L501.5200, L100.0100 #### [facility] [address] [place], [address] dPT Conf. Ratio 1.00 Ratio Normal 0.00-1.34 [facility] Comment on above: Order Comment: Test( s) 937769-Apbzhxmjcbni Antigenwas developed and its performance characteristicsdetermined by [employer]. It has not been cleared or approvedby the Food and Drug Administration. Performed By: #### L 500.4050, L501.2300, L501.5200, L100.0100 #### [facility] [address] [place], [address] DRVVT 32.7 sec Normal 0.0-47.0 [facility] Comment on above: Order Comment: Test( s) 637339-Jlvmwrstwkpz Antigenwas developed and its performance characteristicsdetermined by [employer]. It has not been cleared or approvedby the Food and Drug Administration. Performed By: #### L 500.4050, L501.2300, L501.5200, L100.0100 #### [facility] [address] [place], [place], [address] Interpretation Comment: Normal . [facility] Comment on above: Order Comment: Test( s) 894943-Kxxjhoagybrp Antigenwas developed and its performance characteristicsdetermined by [employer]. It has not been cleared or approvedby the Food and Drug Administration. Result Comment: No l upus anticoagulant was detected. Performed By: #### L 500.4050, L501.2300, L501.5200, L100.0100 #### [facility] [address] [place], [place], [address] THROMBIN TIME 17.4 sec Normal 0.0-23.0 [facility] Comment on above: Order Comment: Test( s) 886201-Wkyncwyhgsgg Antigenwas developed and its performance characteristicsdetermined by [employer]. It has not been cleared or approvedby the Food and Drug Administration. Performed By: #### L 500.4050, L501.2300, L501.5200, L100.0100 #### [facility] [address] [place], [place], [address] Protein C, Functionalon 04- PROTEIN C,FUNC 123 Normal 73-180 [facility] Comment on above: Order Comment: Test( s) 739783-Clikjwkaolar Antigenwas developed and its performance characteristicsdetermined by [employer]. It has not been cleared or approvedby the Food and Drug Administration. Result Comment: Perf ormed at: BN - [facility] [id number] Type Proof Reproducer: Tobias Leonard MD, Phone: [phone] Performed at: CB - Lab[address] [id number] Type Proof Reproducer: Josué Murry PhD, Phone: [phone] Performed at: - [facility] [address] [place], [place] [id number] Type Proof Reproducer: Elijah Lopez [facility], Phone: [phone] Performed By: #### L 500.4050, L501.2300, L501.5200, L100.0100 #### [facility] [address] [place], [address] Protein S Antigenon 09-20-19 25 PROTEIN S, FREE 99 Normal 61-136 [facility] Comment on above: Order Comment: Test( s) 923926-Zqhxogxlffvf Antigenwas developed and its performance characteristicsdetermined by [facility]. It has not been cleared or approvedby the Food and Drug Administration. Performed By: #### L 500.4050, L501.2300, L501.5200, L100.0100 #### [facility] [address] [place], [address] PROTEIN S,TOTAL 81 Normal 60-150 [facility] Comment on above: Order Comment: Test( s) 479276-Yryzvrdornoc Antigenwas developed and its performance characteristicsdetermined by [facility]. It has not been cleared or approvedby the Food and Drug Administration. Result Comment: This test was developed and its performance characteristics determined by [facility]. It has not been cleared or approved by the Food and Drug Administration. Performed By: #### L 500.4050, L501.2300, L501.5200, L100.0100 #### [facility] [address] [place], [address] Protein S, Functionalon 09-07 PROTEIN S, FUNC 75 Normal 63-140 [facility] Comment on above: Order Comment: Test( s) 141560-Aelgqfvbjgyr Antigenwas developed and its performance characteristicsdetermined by [facility]. It has not been cleared or approvedby the Food and Drug Administration. Result Comment: Prot ein S activity may be falsely increased (masking an abnormal, low result) in patients receiving direct Xa inhibitor (e.g., rivaroxaban, apixaban, edoxaban) or a direct thrombin inhibitor (e.g., dabigatran) anticoagulant treatment due to assay interference by these drugs. Performed By: #### L 500.4050, L501.2300, L501.5200, L100.0100 #### [facility] [address] [place], [place], [address] Vitamin B1, Thiamineon 09-19 VIT B1 THIAMINE 70.1 nmol/L Normal 66.5-200.0 [facility] Comment on above: Order Comment: Test( s) 914132-Tdpiyzpvuwed Antigenwas developed and its performance characteristicsdetermined by [facility]. It has not been cleared or approvedby the Food and Drug Administration. Performed By: #### L 500.4050, L501.2300, L501.5200, L100.0100 #### [facility] [address] [place], [place], [address] SATNAM w/ Reflex Mult Confirmon 09-16-2024 SATNAM,DIRECT Negative Normal Negative [facility] Comment on above: Result Comment: Perf ormed at: [facility] [id number] Type Proof Reproducer: Tobias Leonard MD, Phone: [phone] Performed at: [address] [id number] Type Proof Reproducer: Josué Murry PhD, Phone: [phone] Performed By: #### L 3100.8408, L3100.5450, L3300.0960, L3100.7325, L3100.7050, L3100.5800, L501.6710, L3300.0450, L3300.8000, L4500.0100, L4500.2000, L3100.7250, L101.9900, L3100.5600, L4500.5000, L3100.5700 #### [facility] [address] [place], [place], [address] Vitamin D 1,25-Dihydroxyon 0 09-16-2024 VIT D 1,25 DIHY 35.1 pg/mL Normal 24.8-81.5 [facility] Comment on above: Performed By: #### L 3100.8408, L3100.5450, L3300.0960, L3100.7325, L3100.7050, L3100.5800, L501.6710, L3300.0450, L3300.8000, L4500.0100, L4500.2000, L3100.7250, L101.9900, L3100.5600, L4500.5000, L3100.5700 #### [facility] [address] [place], [address] 1,25-dihydroxyvitamin D3 [Ma ss/Vol]Ordered By: Apryl Claudio on 09-13-2024 Vitamin D 1,25-Dihydroxy 35.1 pg/mL 24.8-81.5 [facility] SATNAM serumOrdered By: Apryl quarles on 09-13-2024 Anti-Nuclear Antibody Screen Negative Negative [facility] Comment on above: Performed at: [address] [id number] Director: Tobias Leonard MD, Phone: [phone] at: - [facility] [id number] Director: Josué Murry PhD, Phone: [phone] Blood or tissue coagulation factor II targeted mutation analysis by molecular geneticOrdered By: Apryl Claudio on 09-13-2024 F2 gene targeted mutation analysis [employer] Nom (Bld/Tiss) Comment High . [facility] Comment on above: Result: c.*97G>A - D etected, HeterozygousThis result is consistent with a 2- to 4-fold increased risk forvenous thromboembolism. See Additional Clinical Information andComments.Additional Clinical Information:Venous thromboembolism is a multifactorial disease influenced bygenetic, environmental, and circumstantial risk factors. The c.*97G>Avariant in the F2 gene is a genetic risk factor for venousthromboembolism. Heterozygous carriers have a 2- to 4-fold increasedrisk for venous thromboembolism. Homozygotes for the c.*97G>A variantare rare. The annual risk of VTE in homozygotes has been reported javi 1.1%/year. Individuals who carry both a c.*97G>A variant in theF2 gene and a c.1601G>A (p. Xim994Itl) variant in the F5 gene(commonly referred to as Factor V Leiden) have an approximately 20-fold increased risk for venous thromboembolism. Risks are likely javi even higher in more complex genotype combinations involving theF2 c.*97G>A variant and Factor V Leiden (PMID: 40325245). Additionalrisk factors include but are not limited to: deficiency of protein C,protein S, or antithrombin III, age, male sex, personal or familyhistory of deep vein thromboembolism, smoking, surgery, prolongedimmobilization, malignant neoplasm, tamoxifen treatment, raloxifenetreatment, oral contraceptive use, hormone replacement therapy, andpregnancy. Management of thrombotic risk and thrombotic events shouldfollow established guidelines and fit the clinical circumstance. Thisresult cannot predict the occurrence or recurrence of a thromboticevent.Comments:Genetic counseling is recommended to discuss the potential clinicalimplications of positive results, as well as recommendations fortesting family members.Genetic Coordinators are available for health care providers to discussresults at [phone]).Test Details:Variant analyzed: c.*97G>A, previously referred to as [id number]/Limitations:DNA analysis of the F2 gene (NM_000506.5) was performed by PCRamplification followed by restriction enzyme analysis. The diagnosticsensitivity is >99%. Results must be combined with clinicalinformation for the most accurate interpretation. Molecular-basedtesting is highly accurate, but as in any laboratory test, diagnosticerrors may occur. False positive or false negative results may occurfor reasons that include genetic variants, blood transfusions, bonemarrow transplantation, somatic or tissue-specific mosaicism,mislabeled samples, or erroneous representation of familyrelationships.This test was developed and its performance characteristics determinedby [employer]. It has not been cleared or approved by the Food and DrugAdministration.References:Adryan S, Genesis AK, Noe R, Miguel WW, Celestine JH; A[employer] ProfessionalPractice and Guidelines Committee. Addendum: [place] [employer] consensus statement on factor V Leiden mutationtesting. [facility] Med. 2020Aug 11. doi: 10.1038/[id number]-h.PMID: 51913079.Slim COELHO. Prothrombin Thrombophilia. 2005Dec 31[Updated 2020Jul 13]. In: Tomy GAMING, Maxx HH, Renate RA, et al.,editors. Bhaskar(Yamil) [Internet]. [place] ([place]): [facility]; 3227-3871. Available from:https://www.ncbi.nlm.nih.gov/books/IWQ6561/Ranulfo S, Genesis AK, Navin X, Javier B, Sathish EB, Hermila P, Lupis CS;[facility] Laboratory Licensed Funeral Director And Embalmer Committee. Venous thromboembolismlaboratory testing (factor V Leiden and factor II c.*97G>A),2018 update: a technical standard of the [place] [employer] Medical[employer] and Genomics (ACMG). [facility] Med. 2018 May;20(12):9839-3338.doi: 10.1038/[id number]-z. Epub 2017Mar 13. PMID: 58297327. CRPon 09-13-2024 C-REACTIVE PROT < 3.00 Normal 0.0-3.0 [facility] Comment on above: Performed By: #### L 3100.8408, L3100.5450, L3300.0960, L3100.7325, L3100.7050, L3100.5800, L501.6710, L3300.0450, L3300.8000, L4500.0100, L4500.2000, L3100.7250, L101.9900, L3100.5600, L4500.5000, L3100.5700 #### [facility] [address] [place], [place], [id number] CRP [Mass/Vol]Ordered By: Ji Claudio on 09-13-2024 C-Reactive Protein Extended Range < 3.00 mg/L 0.0-3.0 [facility] Centromere B antibody assayO rdered By: Apryl Claudio on 09-13-2024 [facility]re [facility] Comment on above: Test not performed Chromatin antibody assayOrde red By: Apryl Claudio on 09-13-2024 Antichromatin Antibodies [facility] Comment on above: Test not performed DNA double strand Ab Qn (S)O rdered By: Apryl Claudio on 09-13-2024 Anti-Double Strand DNA Antibody TNP [facility] Comment on above: Test not performed Dilute Adrian's viper venom timeOrdered By: Apryl Claudio on 09-13-2024 dRVVT Coag (PPP) [Time] 32.7 s 0.0-47.0 [facility] Erythrocyte Sed Rateon 09-13 SED RATE 2 mm/hr Normal 0-20 [facility] Comment on above: Performed By: #### L 3100.8408, L3100.5450, L3300.0960, L3100.7325, L3100.7050, L3100.5800, L501.6710, L3300.0450, L3300.8000, L4500.0100, L4500.2000, L3100.7250, L101.9900, L3100.5600, L4500.5000, L3100.5700 #### [facility] [address] [place], [place], [id number] Erythrocyte sedimentation ra teOrdered By: Apryl Claudio on 09-13-2024 ESR (Bld) [Velocity] 2 mm/h 0-20 [facility] Functional protein C measure mentOrdered By: Apryl Claudio on 09-13-2024 Protein C actual/normal Chromogenic method (PPP) [Rel catalytic activity/Vol] 123 % 73-180 [facility] Comment on above: Performed at: - [address] [id number] Director: Tobias Leonard MD, Phone: [phone] at: [facility] [address] [id number] Director: Josué Murry PhD, Phone: [phone] at: [facility] [address] [place], [place] [id number] Director: Elijah Lopez [facility], Phone: [phone] Protein C actual/normal Chromogenic method (PPP) [Rel catalytic activity/Vol] Not Reportable [facility] Slime-1 antibody assayOrdered B y: Apryl Cluadio on 09-13-2024 SLIME-1 Antibody TNP [facility] Comment on above: Test not performed Neurology Visit Reporton Neurology Visit Report [facility] [address], [address] [place] [address] OFFICE VISIT Date of Service: 09/13/24 MR#: [id number] Acct: [id number] Name: LEO ANGELO Rep #: [id number] : 1945 Provider: GUANAKITO negron Age/Sex: 79/M [place] [facility]: Signed with Addenda ADDENDUM by GUANAKITO Claudio on 10/20/24 at 1545 Addendum (10/20/2024) The patient's daughter Suzanne had called in for concerns of an intermittent right sided facial twitch. It had occurred a few times over 2 to 3 days but it has not recently. He has had no change in mental status when it occurred. She states that his electrolytes were checked by the vascular doctor and were found to be normal. The patient had right sided facial palsy following his stroke. The twitching is likely related to spasticity. If this problem persists or worsens the patient is to call into the office. A follow-up is scheduled for 11/10/[address] Cutler. 10/20/24 1545 Date Apryl Claudio cc: * Signed HPI [facility] Chief Complaint: Establish Care Details: Mr. Angelo is an 79 year old right-handed male who presents to the neurology clinic today with his daughter to establish care. He was referred by [facility] following a hospitalization 08/17/2024 through 08/18/2024 for an acute ischemic stroke. He subsequently completed an inpatient rehab program and was discharged 08/31/2024 home with home health care. The patient was determined to have an posterior circulation ischemic stroke involving small acute infarct in the left thalamus and punctuate acute infarcts in the right cerebellum as evident on MRI. At the time of his presentation to the hospital, he was not deemed a candidate for TNK administration or for a mechanical thrombectomy. The etiology of his stroke is multifactorial. He has extensive large and small vessel disease. See hospital course below regarding initial evaluation, diagnostics, and treatment. Hospital course: 08/17/24 - 08/18/24 08/17/2024: The patient presented to [facility] with right-sided weakness and numbness involving the arm, leg, and face. NIHSS was scored 7. STAT imaging was obtained and [facility] teleneurology was consulted. The patient was out of therapeutic window for TNK administration. The CTA head/neck showed large vessel disease within several areas. 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 The MRI brain revealed a small acute infarct in the left thalamus and punctuate acute infarcts in the right cerebellum. A brief summary of the findings is listed below. Diagnostics summary: *See supplemental information for full reports* * CT head: No hemorrhage. Extensive chronic microvascular changes. 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 His LDL was 85 in which they increased his atorvastatin from 40mg to 80mg daily. His TSH was 1.9 and hemoglobin A1c was 5.9%. His EtOH was negative. A urine drug screen was not obtained. Vascular surgery was consulted. No immediate action was taken and the patient will be followed outpatient by the vascular service for continued monitoring and management. Additionally, the patient has known abdominal aortic and thoracic aortic aneurysms and follows with [facility]. The patient was discharged 08/18/2024 to inpatient rehab, completing on 08/31/2024. At discharge, his NIHSS was scored a 2 for facial palsy and language. The patient was discharged on DAPT including aspirin 81 mg daily and clopidogrel 75 mg daily x 3 months. The patient was continued on atorvastatin 80mg daily, Nifedipine, ramipril, sertraline and quetiapine. Quetiapine and sertraline were both initiated while admitted to inpatient rehab. It was reported he had presence of agitation, paranoia, and insomnia. An attempt to wean off the quetiapine was made prior to discharge; however, the patient did not tolerate and experienced agitation and worsening insomnia. On today's presentation 09/13/2024, the patient is generally well-appearing. Hi (more content not included)... Normal [facility] Platelet poor plasma antithr ombin actual/normal ratio by chromogenic method (relativeOrdered By: Apryl Claudio on 09-13-2024 Antithrombin actual/normal Chromogenic method (PPP) [Rel catalytic activity/Vol] 131 % 75-135 [facility] Comment on above: Direct Xa inhibitor anticoagulants such as rivaroxaban,apixaban and edoxaban will lead to spuriously elevatedantithrombin activity levels possibly masking a deficiency. Platelet poor plasma antithr ombin antigen detection by immunoassayOrdered By: Apryl Claudio on 09-13-2024 Antithrombin Ag IA Ql (PPP) 94 % 72-124 [facility] Platelet poor plasma protein S actual/normal ratio (relative time)Ordered By: Apryl Claudio on 09-13-2024 Protein S actual/normal Coag (PPP) [Relative time] 75 % 63-140 [facility] Comment on above: Protein S activity m ay be falsely increased (masking anabnormal, low result) in patients receiving direct Xainhibitor (e.g., rivaroxaban, apixaban, edoxaban) or adirect thrombin inhibitor (e.g., dabigatran) anticoagulanttreatment due to assay interference by these drugs. Protein S measurement in krystal telet poor plasma by coagulation assay (units/volume)Ordered By: Apryl Claudio on 09-13-2024 Protein S Coag Qn (PPP) 81 % 60-150 [facility] Comment on above: This test was devcolemano itz and its performance characteristicsdetermined by [employer]. It has not been cleared orapproved by the Food and Drug Administration. Protein S, freeOrdered By: Zhane Claudio on 09-13-2024 Protein S Free Ag IA Qn (PPP) 99 % 61-136 [facility] VIDEO TAPE EDITOR abOrdered By: Apryl negron on 09-13-2024 VIDEO TAPE EDITOR Antibody [facility] Comment on above: Test not performed SCL-70 extractable nuclear A b Qn (S)Ordered By: Apryl Claudio on 09-13-2024 Scl-70 (Scleroderma) Antibody [facility] Comment on above: Test not performed SS-A IgG antibody assayOrder ed By: Apryl Claudio on 09-13-2024 SS-A/Ro IgG Antibody [facility] Comment on above: Test not performed SS-B IgG antibody assayOrder ed By: Apryl Claudio on 09-13-2024 SS-B/La IgG Antibody [facility] Comment on above: Test not performed Serum DNA double strand anti body assay (units/volume)Ordered By: Apryl Claudio on 09-13-2024 DNA double strand Ab Qn (S) [facility] Comment on above: Test not performed Serum Scl-70 antibody assay (units/volume)Ordered By: Apryl Claudio on 09-13-2024 SCL-70 extractable nuclear Ab Qn (S) [facility] Comment on above: Test not performed Serum cardiolipin IgG antibo dy assay by immunoassay (units/volume)Ordered By: Apryl Claudio on 09-13-2024 Cardiolipin IgG IA Qn (S) < 9 GPL U/mL 0-14 [facility] Comment on above: Negative: <15 Indete rminate: 15 - 20 Low-Med Positive: >20 - 80 High Positive: >80 Serum or plasma C reactive p rotein measurement (mass/volume)Ordered By: Apryl Claudio on 09-13-2024 CRP [Mass/Vol] mg/L 0.0-3.0 [facility] Serum or plasma calcitriol m easurement (mass/volume)Ordered By: Apryl Claudio on 09-13-2024 1,25-dihydroxyvitamin D3 [Mass/Vol] 35.1 pg/mL 24.8-81.5 [facility] Serum or plasma cardiolipin IgA antibody assay (units/volume)Ordered By: Apryl Claudio on 09-13-2024 Cardiolipin IgA Qn < 9 APL U/mL 0-11 [facility] Comment on above: Negative: <12 Indete rminate: 12 - 20 Low-Med Positive: >20 - 80 High Positive: >80 Serum or plasma complement C 4 measurement (mass/volume)Ordered By: Apryl Claudio on 09-13-2024 Complement C4 [Mass/Vol] 22 mg/dL 12-38 [facility] Serum or plasma thiamine wyatt surement (mass/volume)Ordered By: Apryl Claudio on 09-13-2024 Thiamine [Mass/Vol] 70.1 nmol/L 66.5-200.0 [facility] Guerin antibody assayOrdered By: Apyrl Claudio on 09-13-2024 SM Antibody TNP [facility] Comment on above: Test not performed Thrombin timeOrdered By: Edward Claudio on 09-13-2024 Thrombin time Coag (PPP) [Time] 17.4 sec 0.0-23.0 [facility] CNPNon 09-08-2024 CNPN Telephone (INTMWS) LEO ANGELO ([id number]) 1945 M Date Time Provider Department 09/08/24 SERA CASTILLO INTMWS During your visit today, we recorded the following information about you: Richelle Taylor, RN 09/08/2024 4:42 PM Signed Ruperto PT from [facility] calls and reports that he was supposed to see patient on Friday and was not able to get ahold of patient till Friday or Friday. Ruperto is seeing patient tomorrow for PT which is a delay in care. Ruperto wanting provider aware of this. No call back needed. Allergies As of Date: 09/08/2024 Noted Allergy Reaction SEASONAL ALLERGIES 11/30/2008 Date Reviewed: 09/07/2024 Reviewed by: Elen Shukla LPN - Fully Assessed Reason for Visit: PT Delay in Care [Other] Prescriptions as of 09/08/2024 - NIFEdipine ER (PROCARDIA XL) 30 mg 24 hr tablet Take 1 tablet by mouth once daily. - atorvastatin (LIPITOR) 80 mg tablet Take 1 tablet by mouth once daily. - clopidogrel (PLAVIX) 75 mg tablet Take 1 tablet by mouth once daily. - QUEtiapine (SEROQUEL) 25 mg tablet Take 1 tablet by mouth daily at bedtime. - sertraline (ZOLOFT) 50 mg tablet Take 1 tablet by mouth once daily. - ramipril (ALTACE) 10 mg capsule Take 1 capsule by mouth once daily. - cyanocobalamin (VITAMIN B-12) 1,000 mcg tab Take 2,000 mcg by mouth once daily. - OTC PRODUCT Prevagen daily - aspirin, enteric coated (ASPIRIN, ENTERIC COATED) 81 mg EC tablet Take 1 tablet by mouth once daily. Meds Comments as of 06/24/2014: Pt. States he doesn't have med list and is unsure of meds because his prepares them for him. 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] 07/21/2009 Melanocytic Nevus of Trunk [D22.5] 07/21/2009 Solar Lentigo [L81.4] 07/21/2009 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] 07/21/2009 Actinic Damage///Sun-Damaged Skin [L57.8] 07/21/2009 Seborrheic Dermatitis: Central Face [L21.8] 07/21/2009 Other Psoriasis: Sebopsoriasis Central face [L4*07/21/2009 Hip arthritis [M16.10] 09/02/2011 Hypertension [I10] 02/21/2012 Elevated LFTs [R79.89] 02/28/2012 Anxiety [F41.9] 02/28/2012 Alcohol dependence (HCC) [F10.20] 02/28/2012 09/08/2018 Chronic bronchitis (HCC) [J42] 09/08/2018 Hyponatremia [E87.1] 08/24/2013 Vitamin D deficiency [E55.9] 08/24/2013 Aneurysm of ascending aorta (HCC) [I71.21] 01/07/2014 Dysthymia [F34.1] 09/29/2014 Prothrombin gene mutation (HCC) [D68.52] 08/20/2018 Pulmonary embolus (HCC) [I26.99] 08/20/2018 AAA (abdominal aortic aneurysm) without rupture*01/08/2022 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] 08/14/2023 Chronic bronchitis, unspecified chronic bronchi*09/07/2024 Encounter Status:Closed by RICHELLE TAYLOR on 09/08/24 [facility] CNOVleni 09-07-2024 CNOV Office Visit (INTMWS ) LEO ANGELO ([id number]) 1945 M Date Time Provider Department 09/07/24 3:40 PM SERA CASTILLO INTMWS During your visit today, we recorded the following information about you: Pulse Blood pressure Weight Height 87/minute 119/71 59 kg 1.689 m Sera Castillo MD 09/07/2024 5:31 PM Signed Reason for Visit Hospital discharge follow up HPI Leo is a 79-year-old male, with a history of CAD, AAA, Wernicke's encephalopathy, depression, COPD, HTN, diverticulosis, GERD, and prothrombin gene mutation, presenting for follow-up after a recent stroke. He is accompanied by his daughter, who is providing additional history. Leo was admitted to the hospital from 08/18 to 08/31 for a stroke, followed by 13 days of rehabilitation. The stroke resulted in right-sided weakness and difficulty ambulating, necessitating EMS transport to the hospital. 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 MRI of the brain showed a small acute infarct in the left thalamus and punctate acute infarct in the right cerebellum. At the time of presentation to rehab, Leo was not sleeping well, had poor appetite, and was agitated and paranoid. He was given Seroquel shortly after he arrived on rehab to control his behavior. The family had noted that over the past 3 to 5 years, his cognition had been declining. Although he has a known history of Wernicke's encephalopathy secondary to chronic alcohol abuse in 2014, it is likely that he has coexisting Alzheimer's dementia, as his score on was only a 23 out of a possible 50 points on his brief cognitive assessment. At the time of discharge, he was better with Seroquel and was not having any angry outbursts but he still had paranoia. One important point was that he was unaware of his deficits and he had very poor safety awareness. Although they tried to stop him from the Seroquel, he still needed it, and so he was discharged on it, as he only slept well with 25 milligrams of Seroquel. He is able to make out his way in the home, but in the rehab, he was finding it hard to find his room. Leo reports persistent numbness in the right hand, describing it as feeling like it was out in a snowstorm or a sheet of ice. He also experiences numbness in the right leg but is able to ambulate with caution to avoid falls. He does not use a cane or walker at home, relying on furniture and hand pairing machine operator for support. He has been advised against driving and adheres to this recommendation. He denies alcohol consumption for over 10 years. Recent medication changes include the addition of clopidogrel, sertraline, and quetiapine, and discontinuation of omeprazole. He continues to take aspirin, atorvastatin, nifedipine 30 mg once daily, ramipril, and Mylanta as needed. His daughter manages his medication administration and monitors his adherence. Recent lab results show normal liver function tests, potassium levels, and ferritin levels. He has a history of mild anemia and normal B12 levels. Social History Tobacco Use Smoking status: Every Day Current packs/day: 0.50 Average packs/day: 0.5 packs/day for 61.2 years (30.6 ttl pk-yrs) Types: Cigarettes Start date: 06/09/1963 Smokeless tobacco: Never Tobacco comments: varies day to day--now 0.5PPD or less, usually less Vaping Use Vaping status: Never Used Substance Use Topics Alcohol use: No Alcohol/week: 12.0 standard drinks of alcohol Types: 12 Cans of Beer (12oz) per week Comment: Was discussed with Dr. Rob at pre-op eval 11/19/11 Drug use: No Past medical history, appointments, medications, allergies reviewed. Pertinent Lab/Diagnostic Studies are reviewed and discussed today Current Outpatient Medications: ramipril (ALTACE) 10 mg capsule cyanocobalamin (VITAMIN B-12) 1,000 mcg tab OTC PRODUCT aspirin, enteric coated (ASPIRIN, ENTERIC COATED) 81 mg EC tablet NIFEdipine ER (PROCARDIA XL) 30 mg 24 hr tablet atorvastatin (LIPITOR) 80 mg tablet clopidogrel (PLAVIX) 75 mg tablet QUEtiapine (SEROQUEL) 25 mg tablet sertraline (ZOLOFT) 50 mg tablet Health Maintenance Pneumococcal Vaccine: 50+(2 of 2 - PCV) RSV Vaccine(1 - 1-dose 75+ series) Shingrix Vaccine(3 of 3) Influenza Vaccine(1) Covid-19 Vaccine(2023- season) Advance Directive Discussion@ Review Of Systems Ears/Nose/Mouth/Throat: (-) dysphagia Neurological: (+) numbness right upper and lower extremities, (+) dizziness, (+) unsteady gait, (-) speech changes Psychiatric: (+) paranoia Physical Exam BP 119/71 Pulse 87 Ht 168.9 cm (5' 6.5) Wt 59 kg (130 lb) SpO2 96% BMI 20.67 kg/m? GENERAL: NAD, alert and oriented. SKIN: Unremarkable, no rash or s (more content not included)... [facility] ([id number]) 1945 M Date Time Provider Department 09/02/24 SERA CASITLLO INTMWS During your visit today, we recorded the following information about you: Richelle Taylor RN 09/02/2024 1:42 PM Signed Richelle calling from [facility] to report plan of care for patient and senior care will visit patient 1 time a week for 2 weeks. Patient was sent home from hospital with orders for senior care, physical therapy, occupational therapy, speech therapy, and bilingual social worker. Patient is refusing occupational therapy and speech therapy. Please review and Advise, THELMA Red Joy, APRN.[facility] 09/03/2024 2:01 PM Signed Ok with plan. Can discuss further at hospital follow up. Thank you Mari Mcclelland APRN.[facility] Allergies As of Date: 09/02/2024 Noted Allergy Reaction SEASONAL ALLERGIES 11/30/2008 Date Reviewed: 07/20/2024 Reviewed by: Elen Shukla LPN - Fully Assessed Reason for Visit: Home Health Orders [Other] Correction Plan of Care [Other] Prescriptions as of 09/03/2024 - ramipril (ALTACE) 10 mg capsule Take 1 capsule by mouth once daily. - atorvastatin (LIPITOR) 40 mg tablet Take 1 tablet by mouth once daily. - omeprazole (PRILOSEC) 40 mg capsule Take 1 capsule by mouth once daily. - cyanocobalamin (VITAMIN B-12) 1,000 mcg tab Take 1,000 mcg by mouth once daily. - NIFEdipine ER (PROCARDIA XL) 60 mg 24 hr tablet Take 1 tablet by mouth once daily. - OTC PRODUCT Prevagen daily - aspirin, enteric coated (ASPIRIN, ENTERIC COATED) 81 mg EC tablet Take 1 tablet by mouth once daily. Meds Comments as of 06/24/2014: Pt. States he doesn't have med list and is unsure of meds because his prepares them for him. Problem List As Of Date 09/02/2024 Noted Resolved LUMBAGO [M54.50] 08/14/2007 Tobacco use disorder [F17.200] 08/14/2007 DISEASES OF NAIL NEC [L60.8] 09/29/2007 SEBORRHEIC KERATOSIS NOS [L82.1] 09/29/2007 Other Psoriasis [L40.8] 09/29/2007 07/21/2009 SOLAR LENGINES///DYSCHROMIA OTHER [L81.9] 09/29/2007 NEVUS ///BENIGN SALOME SKIN TRUNK [D23.5] 09/29/2007 ACTINIC DAMAGE//CHR SOLAR SKIN DAMAGE NOS [L57.*09/29/2007 DERMATOPHYTOSIS OF NAIL [B35.1] 09/29/2007 Unspecified Asthma [J45.909] 01/26/2009 Seborrheic Dermatitis: Central face [L21.9] 07/21/2009 07/21/2009 Melanocytic Nevus of Face [D22.30] 07/21/2009 Melanocytic Nevus of Trunk [D22.5] 07/21/2009 Solar Lentigo [L81.4] 07/21/2009 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] 07/21/2009 Actinic Damage///Sun-Damaged Skin [L57.8] 07/21/2009 Seborrheic Dermatitis: Central Face [L21.8] 07/21/2009 Other Psoriasis: Sebopsoriasis Central face [L4*07/21/2009 Hip arthritis [M16.10] 09/02/2011 Hypertension [I10] 02/21/2012 Elevated LFTs [R79.89] 02/28/2012 Anxiety [F41.9] 02/28/2012 Alcohol dependence (HCC) [F10.20] 02/28/2012 09/08/2018 Chronic bronchitis (HCC) [J42] 09/08/2018 Hyponatremia [E87.1] 08/24/2013 Vitamin D deficiency [E55.9] 08/24/2013 Aneurysm of ascending aorta (HCC) [I71.21] 01/07/2014 Dysthymia [F34.1] 09/29/2014 Prothrombin gene mutation (HCC) [D68.52] 08/20/2018 Pulmonary embolus (HCC) [I26.99] 08/20/2018 AAA (abdominal aortic aneurysm) without rupture*01/08/2022 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 Asking if pcp agreeable to follow for orders. Please phone Trudy with Mari Lockett APRN.[facility] 09/01/2024 8:15 AM Signed Agreeable to orders. Will discuss further at hospital follow up. Thank you Mari Mcclelland APRN.[facility] Dobson LPN 09/01/2024 8:31 AM Signed Phoned Trudy and left detailed message on voicemail with orders from Mari Mcclelland [employer]OTH [employer]ING SUPERVISOR. Allergies As of Date: 08/31/2024 Noted Allergy Reaction SEASONAL ALLERGIES 11/30/2008 Date Reviewed: 07/20/2024 Reviewed by: Elen Shukla LPN - Fully Assessed Reason for Visit: Orders [681] Prescriptions as of 09/01/2024 - ramipril (ALTACE) 10 mg capsule Take 1 capsule by mouth once daily. - atorvastatin (LIPITOR) 40 mg tablet Take 1 tablet by mouth once daily. - omeprazole (PRILOSEC) 40 mg capsule Take 1 capsule by mouth once daily. - cyanocobalamin (VITAMIN B-12) 1,000 mcg tab Take 1,000 mcg by mouth once daily. - NIFEdipine ER (PROCARDIA XL) 60 mg 24 hr tablet Take 1 tablet by mouth once daily. - OTC PRODUCT Prevagen daily - aspirin, enteric coated (ASPIRIN, ENTERIC COATED) 81 mg EC tablet Take 1 tablet by mouth once daily. Meds Comments as of 06/24/2014: Pt. States he doesn't have med list and is unsure of meds because his prepares them for him. Problem List As Of Date 08/31/2024 Noted Resolved LUMBAGO [M54.50] 08/14/2007 Tobacco use disorder [F17.200] 08/14/2007 DISEASES OF NAIL NEC [L60.8] 09/29/2007 SEBORRHEIC KERATOSIS NOS [L82.1] 09/29/2007 Other Psoriasis [L40.8] 09/29/2007 07/21/2009 SOLAR LENGINES///DYSCHROMIA OTHER [L81.9] 09/29/2007 NEVUS ///BENIGN SALOME SKIN TRUNK [D23.5] 09/29/2007 ACTINIC DAMAGE//CHR SOLAR SKIN DAMAGE NOS [L57.*09/29/2007 DERMATOPHYTOSIS OF NAIL [B35.1] 09/29/2007 Unspecified Asthma [J45.909] 01/26/2009 Seborrheic Dermatitis: Central face [L21.9] 07/21/2009 07/21/2009 Melanocytic Nevus of Face [D22.30] 07/21/2009 Melanocytic Nevus of Trunk [D22.5] 07/21/2009 Solar Lentigo [L81.4] 07/21/2009 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] 07/21/2009 Actinic Damage///Sun-Damaged Skin [L57.8] 07/21/2009 Seborrheic Dermatitis: Central Face [L21.8] 07/21/2009 Other Psoriasis: Sebopsoriasis Central face [L4*07/21/2009 Hip arthritis [M16.10] 09/02/2011 Hypertension [I10] 02/21/2012 Elevated LFTs [R79.89] 02/28/2012 Anxiety [F41.9] 02/28/2012 Alcohol dependence (HCC) [F10.20] 02/28/2012 09/08/2018 Chronic bronchitis (HCC) [J42] 09/08/2018 Hyponatremia [E87.1] 08/24/2013 Vitamin D deficiency [E55.9] 08/24/2013 Aneurysm of ascending aorta (HCC) [I71.21] 01/07/2014 Dysthymia [F34.1] 09/29/2014 Prothrombin gene mutation (HCC) [D68.52] 08/20/2018 Pulmonary embolus (HCC) [I26.99] 08/20/2018 AAA (abdominal aortic aneurysm) without rupture*01/08/2022 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 Sera Castillo MD Status:ADM IN Discharge Instructions Diet Discharge Diet: No restrictions DC O2, CPAP, BIPAP needs Home O2 Discharge instructions: No Dressing / Incision Discharge Activity: May Not Drive and - (use a cane when ambulating or a walker. ) Weight Bearing Status: Full weight bearing Dressing / Incision Call your doctor if you observe: Fever of 101 or Higher, Inability to urinate, Inability to have a bowel movement, Shortness of breath, Dizziness, Fainting spells, Swelling in the ankles, Chest pain, Increased palpitations (irregular heartbeat), Calf discomfort and - (STROKE symptoms: facial droop, slurred speech, inability to get words out, weakness on 1 side of the body and not the other, numbness on 1 side of the body and not the other, inability to maintain your balance sitting or standing, vertigo. ) Follow Up Care When: You will need to follow up with Dr. Castillo, Dr. Marina (vascular surgery) and Apryl Claudio (neurology) following discharge for rehab. Appts have been made and are listed at the end of this document. Test Results: Test results from this visit will be discussed in further detail at your follow-up appointment, if applicable. Pending Tests Upon Discharge: none Discharge Plan Admission Admit Date/Time: 08/18/24 15:22 Primary Reason for Your Visit: POST STROKE DEBILITY Attending Provider: Elen Muñoz Primary Care Provider: Sera Castillo Consulting Providers: Anupam Davis; Jhoana Marc; Aparna Arroyo; Hue Orellana; Lidia Leary NP; Sury Prajapati Instructions Patient Instructions: Understanding Dementia, Dementia Caregiver Tips Additional Instructions / Restrictions: 1. You have made good progress on rehab. We initially had problems with agitation when you first arrived on rehab and I started a medication called Seroquel to help you sleep at night and to help control agitation and angry outbursts. You did well on this medication and you were very cooperative and sleeping through the night. We tried cutting the dose in half and the agitation and insomnia and angry outbursts with staff recurred. I am discharging you on Seroquel 25 mg at bedtime. If you are having problems with anger and behavior during the day you can take an extra dose in the morning. Taking this medication will help with keeping you at home rather than a halfway care facility. 2. You have many aneurysms. Aneurysms are a weakening in the wall of an artery and this can lead to rupture of the artery and bleeding. Sometimes the artery with the aneurysm will have blood clots that adhere to the wall of the aneurysm and these can break off and lead to strokes. You are at risk if more strokes in the future. You are also at risk for blood clots into your legs. If you get an arterial clot into the leg the leg will get VERY painful and can be cold to the change with blue or white discoloration of the the leg. This would be an emergency and you would need to go to the ER immediately. 3. You will no longer be able to drive. You have a form of dementia called Wernicke's encephalopathy. This degeneration of the brain occurs as a result of long-term alcohol abuse. Even though you have quit drinking this will not change. In addition to the Wernicke's encephalopathy I think you probably have Alzheimer's dementia also. Over the past 3 to 5 years your memory has gotten increasingly bad and now you have some behavioral disturbance. You are not safe to drive. 4. If you or your family have any questions after you leave rehab please do not hesitate to call me. 5. the bilingual social worker made a referral for palliative care. they will be calling you to set up a meeting. They will tell you what they do and answer any questions you have. You are not obligated to sign up for anything....I just think it would be beneficial to have palliative care on because they can help deal with problems that would other walter lead to a trip to the ER. they can also prescribe medications. OFFICE: [phone] CELL: [phone] NURSES STATION ON REHAB: [phone] Discharge Orders/Prescriptions Prescriptions: New quetiapine 25 mg Tablet 25 mg PO 2100 Qty: 45 0RF Rx Instructions: Take 1 tab at bedtime every night. If agitated during the day can give 25 mg one more time a day as needed. atorvastatin 80 mg Tablet 80 mg PO QHS Qty: 30 0RF acetaminophen 325 mg Tablet 650 mg PO Q6H PRN PRN (Reason: Pain Score 1-10) Qty: 1 0RF sertraline 50 mg Tablet 50 mg PO DAILY Qty: 30 0RF Mylanta Tonight 800-270-80 mg/10 mL suspension 15 ml PO Q6H PRN PRN (Reason: heartburn) Qty: 355 (more content not included)... Normal [facility] Anion gap in Serum or Plasma Ordered By: Elen Muñoz on 08-27-2024 Anion gap [Moles/Vol] 12 mmol/L 5-15 [facility] BUN/creatinine ratioOrdered By: Elen Muñoz on 08-27-2024 Urea nitrogen/Creatinine [Mass ratio] 31.1 mg/mg High [facility] Basic Metabolic Profile (BMP )on 08-27-2024 BUN/CRE 31.1 RATIO High [facility] Comment on above: Performed By: #### L 500.4050, L501.2300, L501.5200, L100.0100 #### [facility] Laboratory [address] [place], [address] Calcium [Mass/Vol] 8.9 mg/dL Normal 7.6-11.0 [facility] Comment on above: Performed By: #### L 500.4050, L501.2300, L501.5200, L100.0100 #### [facility] [address] [place], [address] Chloride [Moles/Vol] 101 mmol/L Normal 98-108 [facility] Comment on above: Performed By: #### L 500.4050, L501.2300, L501.5200, L100.0100 #### [facility] [address] [place], [address] CO2 [Moles/Vol] 22.6 mmol/L Normal 21.0-32.0 [facility] Comment on above: Performed By: #### L 500.4050, L501.2300, L501.5200, L100.0100 #### [facility] [address] [place], [address] Creatinine [Mass/Vol] 0.80 mg/dL Normal 0.70-1.20 [facility] Comment on above: Performed By: #### L 500.4050, L501.2300, L501.5200, L100.0100 #### [facility] [address] [place], [address] ECRCL 61.35 ml/min Normal 50-250 [facility] Comment on above: Performed By: #### L 500.4050, L501.2300, L501.5200, L100.0100 #### [facility] [address] [place], [address] GAP 12 Normal 5-15 [facility] Comment on above: Performed By: #### L 500.4050, L501.2300, L501.5200, L100.0100 #### [facility] Laboratory [address] [place], [address] GFR/1.73 sq M.predicted among non-blacks MDRD (S/P/Bld) [Vol rate/Area] 89 mL/min/{1.73_m2} Normal >60 [facility] Comment on above: Result Comment: mL/m in/1.73m2 CKD-EPI Creatinine Equation (2020) Performed By: #### L 500.4050, L501.2300, L501.5200, L100.0100 #### [facility] [address] [place], [address] Glucose [Mass/Vol] 96 mg/dL Normal 70-99 [facility] Comment on above: Performed By: #### L 500.4050, L501.2300, L501.5200, L100.0100 #### [facility] [address] [place], [address] Potassium [Moles/Vol] 3.7 mmol/L Normal 3.3-5.1 [facility] Comment on above: Performed By: #### L 500.4050, L501.2300, L501.5200, L100.0100 #### [facility] [address] [place], [address] Sodium [Moles/Vol] 136 mmol/L Normal 133-145 [facility] Comment on above: Performed By: #### L 500.4050, L501.2300, L501.5200, L100.0100 #### [facility] [address] [place], [address] Urea nitrogen [Mass/Vol] 25 mg/dL High 4-19 [facility] Comment on above: Performed By: #### L 500.4050, L501.2300, L501.5200, L100.0100 #### [facility] [address] [place], [address] Carbon dioxide, total [Moles /volume] in Central venous bloodOrdered By: Elen Muñoz on 08-27-2024 CO2 [Moles/Vol] 22.6 mmol/L 21.0-32.0 [facility] Chloride assayOrdered By: Leann Muñoz on 08-27-2024 Chloride [Moles/Vol] 101 mmol/L 98-108 [facility] Estimation of creatinine christen aranceOrdered By: Elen Muñoz on 08-27-2024 Estimated Creatinine Clearance Calc 61.35 ml/min 50-250 [facility] GFR/1.73 sq M.predicted chai g non-blacks MDRD (S/P/Bld) [Vol rate/Area]Ordered By: Elen Muñoz on 08-27-2024 Estimated GFR (MDRD) Non-Af Amer 89 >60 [facility] Comment on above: mL/min/1.73m2 CKD-EP I Creatinine Equation (2020) Glomerular filtration rate ( GFR) estimation/1.73 sq m using serum, plasma, or whole bOrdered By: Elen Muñoz on 08-27-2024 GFR/1.73 sq M.predicted among non-blacks MDRD (S/P/Bld) [Vol rate/Area] 89 mL/min/{1.73_m2} >60 [facility] Comment on above: mL/min/1.73m2 CKD-EP I Creatinine Equation (2020) Magnesiumon 08-27-2024 Magnesium [Mass/Vol] 2.0 mg/dL Normal 1.5-2.2 [facility] Comment on above: Performed By: #### L 500.4050, L501.2300, L501.5200, L100.0100 #### [facility] Laboratory [address] [place], [address] Magnesium (Unsp spec) [Mass/ Vol]Ordered By: Elen Toni on 08-27-2024 Magnesium [Mass/Vol] 2.0 mg/dL 1.5-2.2 [facility] Magnesium measurement (mass/ volume)Ordered By: Elen Toni on 08-27-2024 Magnesium (Unsp spec) [Mass/Vol] 2.0 mg/dL 1.5-2.2 [facility] Potassium (Unsp spec) [Mass/ Vol]Ordered By: Elen Toni on 08-27-2024 Potassium [Moles/Vol] 3.7 mmol/L 3.3-5.1 [facility] Potassium measurement (mass/ volume)Ordered By: Elen Muñoz on 08-27-2024 Potassium (Unsp spec) [Mass/Vol] 3.7 mmol/L 3.3-5.1 [facility] Serum creatinine measurement (mass/volume)Ordered By: Elen Muñoz on 08-27-2024 Creatinine [Mass/Vol] 0.80 mg/dL 0.70-1.20 [facility] Serum glucose measurement (m ass/volume)Ordered By: Elen Muñoz on 08-27-2024 Glucose [Mass/Vol] 96 mg/dL 70-99 [facility] Serum or plasma calcium oscar urement (mass/volume)Ordered By: Elen Muñoz on 08-27-2024 Calcium [Mass/Vol] 8.9 mg/dL 7.6-11.0 [facility] Serum or plasma urea nitroge n measurement (mass/volume)Ordered By: Elen Muñoz on 08-27-2024 Urea nitrogen [Mass/Vol] 25 mg/dL High 4-19 [facility] Sodium levelOrdered By: Elen Muñoz on 08-27-2024 Sodium [Moles/Vol] 136 mmol/L 133-145 [facility] HH, Hemoglobin AND Hematocri ton 08-26-2024 Hematocrit (Bld) [Volume fraction] 36.4 % Low 40-54 [facility] Comment on above: Performed By: #### L 500.4050, L501.2300, L501.5200, L100.0100 #### [facility] Laboratory [address] [place], [address] Hemoglobin (Bld) [Mass/Vol] 12.2 g/dL Low 13.0-16.5 [facility] Comment on above: Performed By: #### L 500.4050, L501.2300, L501.5200, L100.0100 #### [facility] Laboratory [address] [place], [address] Hematocrit Auto (Bld) [Volum e fraction]Ordered By: Elen Muñoz on 08-26-2024 Hematocrit (Bld) [Volume fraction] 36.4 % Low 40-54 [facility] Hemoglobin measurementOrdere d By: Elen Muñoz on 08-26-2024 Hemoglobin (Bld) [Mass/Vol] 12.2 g/dL Low 13.0-16.5 [facility] Electrocardiogram reportOrde red By: Lokesh Morales on 08-23-2024 EKG study [facility] Cardiovascular Services [address] [place] [address] 12 Lead EKG 08/19/24 1048 MR#: [id number] Acct: [id number] Name: LEO ANGELO Rep #:[id number] : 1945 79 From: Lokesh freed MD Attending Dr: Dr. Elen Muñoz DO Status: ADM IN Ordering Dr: Elen Muñoz DO Date: 08/19/24 Location: Sex: M C Admitted: 08/18/24 Test Reason : CAD Blood Pressure : */* mmHG Vent. Rate : 64 BPM Atrial Rate : 64 BPM P-R Int : 144 ms QRS Dur : 86 ms QT Int : 404 ms P-R-T Axes : 74 -54 67 degrees QTcB Int : 416 ms Normal sinus rhythm with sinus arrhythmia Left anterior fascicular block Abnormal ECG Confirmed by CARMEN WILDER, ARCELIA ([id number]), film editor supervisor DENNISE SR ([id number]) on 08/23/2024 10:51:29 AM Referred By: Elen Muñoz Confirmed By: ARCELIA MORALES MD 08/23/24 1051 Date _ Lokesh Morales MD CC: Dr. Sera Castillo MD; Dr. Elen Muñoz, DO ~ Signed [facility] Work Phone: Basic Metabolic Profile (BMP )on 08-21-2024 BUN/CRE 33.2 RATIO High 10-20 [facility] Comment on above: Performed By: #### L 500.4050, L501.2300, L501.5200, L100.0100 #### [facility] Laboratory [address] [place], [address] Calcium [Mass/Vol] 9.1 mg/dL Normal 7.6-11.0 [facility] Comment on above: Performed By: #### L 500.4050, L501.2300, L501.5200, L100.0100 #### [facility] [address] [place], [address] Chloride [Moles/Vol] 101 mmol/L Normal 98-108 [facility] Comment on above: Performed By: #### L 500.4050, L501.2300, L501.5200, L100.0100 #### [facility] [address] [place], [address] CO2 [Moles/Vol] 23.3 mmol/L Normal 21.0-32.0 [facility] Comment on above: Performed By: #### L 500.4050, L501.2300, L501.5200, L100.0100 #### [facility] Laboratory [address] [place], [address] Creatinine [Mass/Vol] 0.84 mg/dL Normal 0.70-1.20 [facility] Comment on above: Performed By: #### L 500.4050, L501.2300, L501.5200, L100.0100 #### [facility] [address] [place], [address] ECRCL 60.22 ml/min Normal 50-250 [facility] Comment on above: Performed By: #### L 500.4050, L501.2300, L501.5200, L100.0100 #### [facility] Laboratory [address] [place], [address] GAP 11 Normal 5-15 [facility] Comment on above: Performed By: #### L 500.4050, L501.2300, L501.5200, L100.0100 #### [facility] Laboratory [address] [place], [address] GFR/1.73 sq M.predicted among non-blacks MDRD (S/P/Bld) [Vol rate/Area] 88 mL/min/{1.73_m2} Normal >60 [facility] Comment on above: Result Comment: mL/m in/1.73m2 CKD-EPI Creatinine Equation (2020) Performed By: #### L 500.4050, L501.2300, L501.5200, L100.0100 #### [facility] [address] [place], [address] Glucose [Mass/Vol] 94 mg/dL Normal 70-99 [facility] Comment on above: Performed By: #### L 500.4050, L501.2300, L501.5200, L100.0100 #### [facility] Laboratory [address] [place], [address] Potassium [Moles/Vol] 4.0 mmol/L Normal 3.3-5.1 [facility] Comment on above: Performed By: #### L 500.4050, L501.2300, L501.5200, L100.0100 #### [facility] Laboratory [address] [place], [address] Sodium [Moles/Vol] 136 mmol/L Normal 133-145 [facility] Comment on above: Performed By: #### L 500.4050, L501.2300, L501.5200, L100.0100 #### [facility] Laboratory [address] [place], [address] Urea nitrogen [Mass/Vol] 28 mg/dL High 4-19 [facility] Comment on above: Performed By: #### L 500.4050, L501.2300, L501.5200, L100.0100 #### [facility] Laboratory [address], [address] Lower GI hemoglobin IA Ql (S tl)Ordered By: Elen Muñoz on 08-20-2024 Stool Occult Blood (SHAWANDA) Positive Abnormal [facility] Stool Occult Blood iFOBon STOB Normal Reference Ran ge = Negative Immunochemical Fecal Occult Blood (iFOBT) method. Hemoccult Stl Ql IA Limitation: Menstrual bleeding, constipation bleeding, bleeding hemorrhoids, and urinary bleeding conditions may interfere with test. Occult Blood A Positive A OCCULT BLOOD POSITIVE Normal [facility] Comment on above: Performed By: #### L 500.4050, L501.2300, L501.5200, L100.0100 #### [facility] Laboratory [address] [place], [address] Stool gastrointestinal hemog lobin detection by immunologic methodOrdered By: Elen Muñoz on 08-20-2024 Lower GI hemoglobin IA Ql (Stl) Positive Abnormal [facility] 12 Lead EKGon 08-19-2024 12 Lead EKG [facility] Cardiovascular Services [address] [place] [address] 12 Lead EKG 08/19/24 1048 MR#: [id number] Acct: [id number] Name: LEO ANGELO Rep #: [id number] : 1945 79 From: Lokesh Morales MD Attending Dr: Dr. Elen Muñoz DO Sta tus: ADM IN Ordering Dr: Elen Muñoz DO Date: 08/19/24 Location: Sex: M C Admitted: 08/18/24 Test Reason : CAD Blood Pressure : */* mmHG Vent. Rate : 64 BPM Atrial Rate : 64 BPM P-R Int : 144 ms QRS Dur : 86 ms QT Int : 404 ms P-R-T Axes : 74 -54 67 degrees QTcB Int : 416 ms Normal sinus rhythm with sinus arrhythmia Left anterior fascicular block Abnormal ECG Confirmed by CARMEN WILDER, ARCELIA ([id number]), film editor supervisor DENNISE SR ([id number]) on 08/23/2024 10:51:29 AM Referred By: Elen Muñoz Confirmed By: ARCELIA MORALES MD 08/23/24 1051 Date Lokesh Morales MD CC: Dr. Sera Castillo MD; Dr. Elen Muñoz DO Signed Normal [facility] Absolute lymphocyte countOrd ered By: Elen Muñoz on 08-19-2024 Lymphocytes Auto (Unsp spec) [#/Vol] 1.41 10*3/uL 0.83-4.51 [facility] Absolute neutrophil countOrd ered By: Elen Muñoz on 08-19-2024 Neutrophils (Bld) [#/Vol] 2.9 10*3/uL 2.0-7.7 [facility] Automated lymphocyte count a s percentage of total leukocytesOrdered By: Elen Muñoz on 08-19-2024 Lymphocytes/100 WBC Auto (Unsp spec) 26.8 % - [facility] Basophil percentageOrdered B y: Elen Muñoz on 08-19-2024 Basophils/100 WBC (Bld) 1.0 % 0 [facility] Bilirubin, totalOrdered By: Elen Muñoz on 08-19-2024 Bilirubin [Mass/Vol] 0.48 mg/dL 0.00-1.30 [facility] CBC W/Diff, Automatedon 08-07 Absolute Lymph 1.41 X10 3/uL Normal 0.83-4.51 [facility] Comment on above: Performed By: #### L 500.4050, L501.2300, L501.5200, L100.0100 #### [facility] Laboratory [address] [place], [address] Absolute Neut 2.9 X10 3/uL Normal 2.0-7.7 [facility] Comment on above: Performed By: #### L 500.4050, L501.2300, L501.5200, L100.0100 #### [facility] Laboratory [address] [place], [address] Basophils/100 WBC (Bld) 1.0 % Normal 0-1 [facility] Comment on above: Performed By: #### L 500.4050, L501.2300, L501.5200, L100.0100 #### [facility] Laboratory [address] [place], [address] Eosinophils/100 WBC (Bld) 2.7 % Normal 0-5 [facility] Comment on above: Performed By: #### L 500.4050, L501.2300, L501.5200, L100.0100 #### [facility] Laboratory [address] [place], [address] Erythrocyte distribution width (RBC) [Ratio] 13.5 % Normal 11.6-14.6 [facility] Comment on above: Performed By: #### L 500.4050, L501.2300, L501.5200, L100.0100 #### [facility] Laboratory [address] [place], [address] Hematocrit (Bld) [Volume fraction] 37.5 % Low 40-54 [facility] Comment on above: Performed By: #### L 500.4050, L501.2300, L501.5200, L100.0100 #### [facility] [address] [place], [address] Hemoglobin (Bld) [Mass/Vol] 12.6 g/dL Low 13.0-16.5 [facility] Comment on above: Performed By: #### L 500.4050, L501.2300, L501.5200, L100.0100 #### [facility] Laboratory [address] [place], [address] IG% 0.200 Normal 0.0-0.9 [facility] Comment on above: Result Comment: IG% - Immature Granulocytes (promyelocytes, myelocytes and metamyelocytes) > 1% indicates that a LEFT SHIFT is Present. Performed By: #### L 500.4050, L501.2300, L501.5200, L100.0100 #### [facility] [address] [place], [address] Lymphocytes/100 WBC (Bld) 26.8 % Normal 19-41 [facility] Comment on above: Performed By: #### L 500.4050, L501.2300, L501.5200, L100.0100 #### [facility] [address] [place], [address] MCH (RBC) [Entitic mass] 29.8 pg Normal 27.0-32.0 [facility] Comment on above: Performed By: #### L 500.4050, L501.2300, L501.5200, L100.0100 #### [facility] [address] [place], [address] MCHC (RBC) [Mass/Vol] 33.6 g/dL Normal 32-36 [facility] Comment on above: Performed By: #### L 500.4050, L501.2300, L501.5200, L100.0100 #### [facility] [address] [place], [address] MCV (RBC) [Entitic vol] 88.7 fL Normal 80-94 [facility] Comment on above: Performed By: #### L 500.4050, L501.2300, L501.5200, L100.0100 #### [facility] [address] [place], [address] Monocytes/100 WBC (Bld) 13.5 % High 0-10 [facility] Comment on above: Performed By: #### L 500.4050, L501.2300, L501.5200, L100.0100 #### [facility] [address] [place], [address] Neutrophils/100 WBC (Bld) 55.8 % Normal 47-70 [facility] Comment on above: Performed By: #### L 500.4050, L501.2300, L501.5200, L100.0100 #### [facility] [address] [place], [address] Nucleated RBC (Bld) [#/Vol] 0 10*3/uL Normal 0-5 [facility] Comment on above: Performed By: #### L 500.4050, L501.2300, L501.5200, L100.0100 #### [facility] [address] [place], [address] Platelet mean volume (Bld) [Entitic vol] 9.7 fL Normal 6.2-12.0 [facility] Comment on above: Performed By: #### L 500.4050, L501.2300, L501.5200, L100.0100 #### [facility] [address] [place], [address] Platelets (Bld) [#/Vol] 227 10*3/uL Normal 150-450 [facility] Comment on above: Performed By: #### L 500.4050, L501.2300, L501.5200, L100.0100 #### [facility] [address] [place], [address] RBC (Bld) [#/Vol] 4.23 10*6/uL Low 4.6-6.2 [facility] Comment on above: Performed By: #### L 500.4050, L501.2300, L501.5200, L100.0100 #### [facility] [address] [place], [address] RDW SD 43.7 fl Normal 35.1-43.9 [facility] Comment on above: Performed By: #### L 500.4050, L501.2300, L501.5200, L100.0100 #### [facility] [address] [place], [address] WBC (Bld) [#/Vol] 5.3 10*3/uL Normal 4.4-11.0 [facility] Comment on above: Performed By: #### L 500.4050, L501.2300, L501.5200, L100.0100 #### [facility] [address] [place], [address] Calculated total iron bindin g capacityOrdered By: Elen Muñoz on 08-19-2024 Total Iron Binding Capacity 323 ug/dL 250-450 [facility] Comprehensive Metabolic Prof ilon 08-19-2024 Albumin [Mass/Vol] 3.8 g/dL Normal 3.4-4.8 [facility] Comment on above: Performed By: #### L 500.4050, L501.2300, L501.5200, L100.0100 #### [facility] [address] [place], [address] Albumin/Globulin [Mass ratio] 1.6 {ratio} Normal 0.9-2.4 [facility] Comment on above: Performed By: #### L 500.4050, L501.2300, L501.5200, L100.0100 #### [facility] [address] [place], [address] ALK PHOS 86 U/L Normal 40-129 [facility] Comment on above: Performed By: #### L 500.4050, L501.2300, L501.5200, L100.0100 #### [facility] Laboratory [address] [place], [address] ALT [Catalytic activity/Vol] 9 U/L Normal <=46 [facility] Comment on above: Performed By: #### L 500.4050, L501.2300, L501.5200, L100.0100 #### [facility] [address] [place], [address] AST [Catalytic activity/Vol] 20 U/L Normal <=37 [facility] Comment on above: Performed By: #### L 500.4050, L501.2300, L501.5200, L100.0100 #### [facility] [address] [place], [address] Bilirubin [Mass/Vol] 0.48 mg/dL Normal 0.00-1.30 [facility] Comment on above: Performed By: #### L 500.4050, L501.2300, L501.5200, L100.0100 #### [facility] [address] [place], [address] BUN/CRE 22.7 RATIO High 10-20 [facility] Comment on above: Performed By: #### L 500.4050, L501.2300, L501.5200, L100.0100 #### [facility] [address] [place], [address] Calcium [Mass/Vol] 9.3 mg/dL Normal 7.6-11.0 [facility] Comment on above: Performed By: #### L 500.4050, L501.2300, L501.5200, L100.0100 #### [facility] [address] [place], [address] Chloride [Moles/Vol] 102 mmol/L Normal 98-108 [facility] Comment on above: Performed By: #### L 500.4050, L501.2300, L501.5200, L100.0100 #### [facility] [address] [place], [address] CO2 [Moles/Vol] 23.5 mmol/L Normal 21.0-32.0 [facility] Comment on above: Performed By: #### L 500.4050, L501.2300, L501.5200, L100.0100 #### [facility] [address] [place], [address] Creatinine [Mass/Vol] 0.99 mg/dL Normal 0.70-1.20 [facility] Comment on above: Performed By: #### L 500.4050, L501.2300, L501.5200, L100.0100 #### [facility] [address] [place], [address] ECRCL 51.09 ml/min Normal 50-250 [facility] Comment on above: Performed By: #### L 500.4050, L501.2300, L501.5200, L100.0100 #### [facility] Laboratory [address] [place], [address] GAP 12 Normal 5-15 [facility] Comment on above: Performed By: #### L 500.4050, L501.2300, L501.5200, L100.0100 #### [facility] [address] [place], [address] GFR/1.73 sq M.predicted among non-blacks MDRD (S/P/Bld) [Vol rate/Area] 77 mL/min/{1.73_m2} Normal >60 [facility] Comment on above: Result Comment: mL/m in/1.73m2 CKD-EPI Creatinine Equation (2020) Performed By: #### L 500.4050, L501.2300, L501.5200, L100.0100 #### [facility] [address] [place], [address] Globulin (S) [Mass/Vol] 2.4 g/dL Normal 2.2-4.2 [facility] Comment on above: Performed By: #### L 500.4050, L501.2300, L501.5200, L100.0100 #### [facility] [address] [place], [address] Glucose [Mass/Vol] 99 mg/dL Normal 70-99 [facility] Comment on above: Performed By: #### L 500.4050, L501.2300, L501.5200, L100.0100 #### [facility] [facility] [address] [place], [address] Potassium [Moles/Vol] 4.1 mmol/L Normal 3.3-5.1 [facility] Comment on above: Performed By: #### L 500.4050, L501.2300, L501.5200, L100.0100 #### [facility] [address] [place], [address] Sodium [Moles/Vol] 138 mmol/L Normal 133-145 [facility] Comment on above: Performed By: #### L 500.4050, L501.2300, L501.5200, L100.0100 #### [facility] [address] [place], [address] T PROT 6.2 g/dL Normal 5.9-8.4 [facility] Comment on above: Performed By: #### L 500.4050, L501.2300, L501.5200, L100.0100 #### [facility] [address] [place], [address] Urea nitrogen [Mass/Vol] 22 mg/dL High 4-19 [facility] Comment on above: Performed By: #### L 500.4050, L501.2300, L501.5200, L100.0100 #### [facility] [address] [place], [address] Eosinophil percentageOrdered By: Elen Toni on 08-19-2024 Eosinophils/100 WBC (Bld) 2.7 % 0-5 [facility] Erythrocyte distribution wid th ratioOrdered By: Elen Noemigiana on 08-19-2024 Erythrocyte distribution width (RBC) [Ratio] 13.5 % 11.6-14.6 [facility] Erythrocyte distribution wid th standard deviationOrdered By: Elen Toni on 08-19-2024 Erythrocyte distribution width (RBC) [Entitic vol] 43.7 fL 35.1-43.9 [facility] Erythrocyte distribution width (RBC) [Ratio] 43.7 fl 35.1-43.9 [facility] FOLATES,SERUM (FOLIC ACID)on 08-19-2024 FOLATES,SERUM 13.40 ng/mL Normal 4.60-34.80 [facility] Comment on above: Result Comment: Hemo lysis, Results will be affected, Requires Recollection. Performed By: #### L 500.4050, L501.2300, L501.5200, L100.0100 #### [facility] [address] [place], [address] Ferritinon 08-19-2024 Ferritin [Mass/Vol] 25 ng/mL Low 37-417 [facility] Comment on above: Performed By: #### L 500.4050, L501.2300, L501.5200, L100.0100 #### [facility] [address] [place], [address] Folate [Mass/Vol]Ordered By: Elen Muñoz on 08-19-2024 Serum Folate 13.40 ng/mL 4.60-34.80 [facility] Comment on above: Hemolysis, Results w ill be affected, Requires Recollection. Folate [Mass/volume] in Seru m or PlasmaOrdered By: Elen Franklingiana on 08-19-2024 Folate [Mass/Vol] 13.40 ng/mL 4.60-34.80 [facility] Comment on above: Hemolysis, Results w ill be affected, Requires Recollection. Hemoglobin A1con 08-19-2024 HbA1c (Bld) [Mass fraction] 5.9 % Normal <=5.6 [facility] Comment on above: Performed By: #### L 500.4050, L501.2300, L501.5200, L100.0100 #### [facility] [address] [place], [address] Hemoglobin A1c percentageOrd ered By: Elen oTni on 08-19-2024 HbA1c (Bld) [Mass fraction] 5.9 % >5.7 [facility] Immature granulocytes/100 WB C Auto (Bld)Ordered By: Elen Muñoz on 08-19-2024 Immature granulocytes/100 WBC (Bld) 0.200 % 0.0-0.9 [facility] Comment on above: IG% - Immature Granu locytes (promyelocytes, myelocytes and metamyelocytes) > 1% indicates that a LEFT SHIFT is Present. Iron (Unsp spec) [Mass/Mass] Ordered By: Elen Muñoz on 08-19-2024 Iron [Mass/Vol] 54 ug/dL Low 65-175 [facility] Iron measurement (mass/mass) Ordered By: Elen Muñoz on 08-19-2024 Iron (Unsp spec) [Mass/Mass] 54 ug/dL Low 65-175 [facility] Iron saturation [Mass fracti on]Ordered By: Elen Toni on 08-19-2024 Iron Saturation 17.0 % 9-55 [facility] Iron+Iron Binding Capacityon 08-19-2024 Iron [Mass/Vol] 54 ug/dL Low 65-175 [facility] Comment on above: Performed By: #### L 500.4050, L501.2300, L501.5200, L100.0100 #### [facility] [address] [place], [address] IRON SATURATION 17.0 Normal 9-55 [facility] Comment on above: Performed By: #### L 500.4050, L501.2300, L501.5200, L100.0100 #### [facility] [address] [place], [address] TIBC 323 ug/dL Normal 250-450 [facility] Comment on above: Performed By: #### L 500.4050, L501.2300, L501.5200, L100.0100 #### [facility] [address] [place], [address] UIBC 269 ug/dL Normal 228-428 [facility] Comment on above: Performed By: #### L 500.4050, L501.2300, L501.5200, L100.0100 #### [facility] [address] [place], [address] L503.0106on 08-19-2024 Cobalamin (Vitamin B12) [Mass/Vol] 1068 pg/mL High 180-914 [facility] Comment on above: Performed By: #### L 500.4050, L501.2300, L501.5200, L100.0100 #### [facility] [address] [place], [address] Laboratory - Chemistry and C hemistry - challengeOrdered By: Elen Muñoz on 08-19-2024 AST [Catalytic activity/Vol] 20 U/L <38 [facility] Lymphocytes Auto (Unsp spec) [#/Vol]Ordered By: Elen Muñoz on 08-19-2024 Lymphocytes (Bld) [#/Vol] 1.41 10*3/uL 0.83-4.51 [facility] Lymphocytes/100 WBC Auto (Un sp spec)Ordered By: Elen Muñoz on 08-19-2024 Lymphocytes/100 WBC (Bld) 26.8 % 19-41 [facility] MCV (mean corpuscular volume ) determinationOrdered By: Elen Muñoz on 08-19-2024 MCV (RBC) [Entitic vol] 88.7 fL 80-94 [facility] Magnesiumon 08-19-2024 Magnesium [Mass/Vol] 2.0 mg/dL Normal 1.5-2.2 [facility] Comment on above: Performed By: #### L 500.4050, L501.2300, L501.5200, L100.0100 #### [facility] [address] [place], [address] Mean corpuscular hemoglobin (MCH) determinationOrdered By: Elen Muñoz on 08-19-2024 MCH (RBC) [Entitic mass] 29.8 pg 27.0-32.0 [facility] Mean corpuscular hemoglobin concentration (MCHC) determinationOrdered By: Elen Muñoz on 08-19-2024 MCHC (RBC) [Mass/Vol] 33.6 g/dL 32-36 [facility] Mean platelet volume determi nationOrdered By: Elen Muñoz on 08-19-2024 Platelet mean volume (Bld) [Entitic vol] 9.7 fL 6.2-12.0 [facility] Monocyte percentageOrdered B y: Elen Muñoz on 08-19-2024 Monocytes/100 WBC (Bld) 13.5 % High 0-10 [facility] Neutrophil percentageOrdered By: Elen Toni on 08-19-2024 Neutrophils/100 WBC (Bld) 55.8 % 47-70 [facility] No Panel InformationOrdered By: Elen Muñoz on 08-19-2024 Unsaturated Iron Binding Capacity 269 ug/dL 228-428 [facility] Nucleated red blood cell per centageOrdered By: Elen Muñoz on 08-19-2024 Nucleated RBC/100 WBC (Bld) [Ratio] 0 % 0-5 [facility] Phosphoruson 08-19-2024 Phosphate [Mass/Vol] 3.9 mg/dL Normal 2.7-4.5 [facility] Comment on above: Performed By: #### L 500.4050, L501.2300, L501.5200, L100.0100 #### [facility] [address] [place], [address] Platelet countOrdered By: Leann Muñoz on 08-19-2024 Platelets (Bld) [#/Vol] 227 10*3/uL 150-450 [facility] RBC Auto (Bld) [#/Vol]Ordere d By: Elen Muñoz on 08-19-2024 RBC (Bld) [#/Vol] 4.23 10*6/uL Low 4.6-6.2 [facility] Serum globulin measurementOr dered By: Elen Muñoz on 08-19-2024 Globulin (S) [Mass/Vol] 2.4 g/dL 2.2-4.2 [facility] Serum or plasma alanine solano otransferase (ALT) measurementOrdered By: Elen Muñoz on 08-19-2024 ALT [Catalytic activity/Vol] 9 U/L <47 [facility] Serum or plasma albumin oscar urement (mass/volume)Ordered By: Elen Muñoz on 08-19-2024 Albumin [Mass/Vol] 3.8 g/dL 3.4-4.8 [facility] Serum or plasma albumin/glob ulin mass ratioOrdered By: Elen Muñoz on 08-19-2024 Albumin/Globulin [Mass ratio] 1.6 {ratio} 0.9-2.4 [facility] Serum or plasma alkaline jaime sphatase measurementOrdered By: Elen Muñoz on 08-19-2024 ALP [Catalytic activity/Vol] 86 U/L 40-129 [facility] Serum or plasma ferritin wyatt surement (mass/volume)Ordered By: Elen Muñoz on 08-19-2024 Ferritin [Mass/Vol] 25 ng/mL Low 37-417 [facility] Serum or plasma iron saturat ion measurement (mass fraction)Ordered By: Elen Muñoz on 08-19-2024 Iron saturation [Mass fraction] 17.0 % 9-55 [facility] Serum phosphorus measurement Ordered By: Elen Muñoz on 08-19-2024 Phosphorus Level 3.9 mg/dL 2.7-4.5 [facility] TSH DL <= 0.005 mIU/L QnOrde red By: Elen Muñoz on 08-19-2024 Thyroid Stimulating Hormone (TSH) 1.900 uIU/mL 0.300-4.200 [facility] TSH Qn 1.900 uIU/mL 0.300-4.200 [facility] Thyroid Stim Hormone (TSH)on 08-19-2024 TSH 1.900 uIU/mL Normal 0.300-4.200 [facility] Comment on above: Performed By: #### L 500.4050, L501.2300, L501.5200, L100.0100 #### [facility] [address] [place], [address] Total proteinOrdered By: Rima Muñoz on 08-19-2024 Protein [Mass/Vol] 6.2 g/dL 5.9-8.4 [facility] Vitamin B12 ser/plasOrdered By: Elen Muñoz on 08-19-2024 Cobalamin (Vitamin B12) [Mass/Vol] 1068 pg/mL High 180-914 [facility] White blood cell (WBC) count Ordered By: Elen Muñoz on 08-19-2024 WBC (Bld) [#/Vol] 5.3 10*3/uL 4.4-11.0 [facility] Absolute lymphocyte countOrd ered By: Enzo Mann on 08-18-2024 Lymphocytes Auto (Unsp spec) [#/Vol] 0.97 10*3/uL 0.83-4.51 [facility] Absolute neutrophil countOrd ered By: Enzo Mann on 08-18-2024 Neutrophils (Bld) [#/Vol] 3.4 10*3/uL 2.0-7.7 [facility] Anion gap in Serum or Plasma Ordered By: Enzo Mann on 08-18-2024 Anion gap [Moles/Vol] 12 mmol/L 5-15 [facility] Automated lymphocyte count a s percentage of total leukocytesOrdered By: Enzo Mann on 08-18-2024 Lymphocytes/100 WBC Auto (Unsp spec) 19.2 % 19-41 [facility] BUN/creatinine ratioOrdered By: Enzo Mann on 08-18-2024 Urea nitrogen/Creatinine [Mass ratio] 20.2 mg/mg High 10-20 [facility] Basic Metabolic Profile (BMP )on 08-18-2024 BUN/CRE 20.2 RATIO High 10-20 [facility] Comment on above: Order Comment: Comme nts: NPO at [place] prior to lipid panel Performed By: #### L 500.4050, L501.2300, L501.5200, L100.0100 #### [facility] [address] [place], [address] Calcium [Mass/Vol] 9.3 mg/dL Normal 7.6-11.0 [facility] Comment on above: Order Comment: Comme nts: NPO at [place] prior to lipid panel Performed By: #### L 500.4050, L501.2300, L501.5200, L100.0100 #### [facility] [address] [place], [address] Chloride [Moles/Vol] 102 mmol/L Normal 98-108 [facility] Comment on above: Order Comment: Comme nts: NPO at [place] prior to lipid panel Performed By: #### L 500.4050, L501.2300, L501.5200, L100.0100 #### [facility] [address] [place], [address] CO2 [Moles/Vol] 23.3 mmol/L Normal 21.0-32.0 [facility] Comment on above: Order Comment: Comme nts: NPO at [place] prior to lipid panel Performed By: #### L 500.4050, L501.2300, L501.5200, L100.0100 #### [facility] [address] [place], [address] Creatinine [Mass/Vol] 0.79 mg/dL Normal 0.70-1.20 [facility] Comment on above: Order Comment: Comme nts: NPO at [place] prior to lipid panel Performed By: #### L 500.4050, L501.2300, L501.5200, L100.0100 #### [facility] [address] [place], [address] ECRCL 56.46 ml/min Normal 50-250 [facility] Comment on above: Order Comment: Comme nts: NPO at [place] prior to lipid panel Performed By: #### L 500.4050, L501.2300, L501.5200, L100.0100 #### [facility] [address] [place], [address] GAP 12 Normal 5-15 [facility] Comment on above: Order Comment: Comme nts: NPO at [place] prior to lipid panel Performed By: #### L 500.4050, L501.2300, L501.5200, L100.0100 #### [facility] [address] [place], [address] GFR/1.73 sq M.predicted among non-blacks MDRD (S/P/Bld) [Vol rate/Area] 90 mL/min/{1.73_m2} Normal >60 [facility] Comment on above: Order Comment: Comme nts: NPO at [place] prior to lipid panel Result Comment: mL/m in/1.73m2 CKD-EPI Creatinine Equation (2020) Performed By: #### L 500.4050, L501.2300, L501.5200, L100.0100 #### [facility] [address] [place], [address] Glucose [Mass/Vol] 92 mg/dL Normal 70-99 [facility] Comment on above: Order Comment: Comme nts: NPO at [place] prior to lipid panel Performed By: #### L 500.4050, L501.2300, L501.5200, L100.0100 #### [facility] [address] [place], [address] Potassium [Moles/Vol] 3.8 mmol/L Normal 3.3-5.1 [facility] Comment on above: Order Comment: Comme nts: NPO at [place] prior to lipid panel Performed By: #### L 500.4050, L501.2300, L501.5200, L100.0100 #### [facility] [address] [place], [address] Sodium [Moles/Vol] 138 mmol/L Normal 133-145 [facility] Comment on above: Order Comment: Comme nts: NPO at [place] prior to lipid panel Performed By: #### L 500.4050, L501.2300, L501.5200, L100.0100 #### [facility] [address] [place], [address] Urea nitrogen [Mass/Vol] 16 mg/dL Normal 4-19 [facility] Comment on above: Order Comment: Comme nts: NPO at [place] prior to lipid panel Performed By: #### L 500.4050, L501.2300, L501.5200, L100.0100 #### [facility] [address] [place], [address] Basophil percentageOrdered B y: Enzo Mann on 08-18-2024 Basophils/100 WBC (Bld) 1.0 % 0-1 [facility] CBC W/Diff, Automatedon 08-07 Absolute Lymph 0.97 X10 3/uL Normal 0.83-4.51 [facility] Comment on above: Performed By: #### L 500.4050, L501.2300, L501.5200, L100.0100 #### [facility] [address] [place], [address] Absolute Neut 3.4 X10 3/uL Normal 2.0-7.7 [facility] Comment on above: Performed By: #### L 500.4050, L501.2300, L501.5200, L100.0100 #### [facility] [address] [place], [address] Basophils/100 WBC (Bld) 1.0 % Normal 0-1 [facility] Comment on above: Performed By: #### L 500.4050, L501.2300, L501.5200, L100.0100 #### [facility] [address] [place], [address] Eosinophils/100 WBC (Bld) 3.6 % Normal 0-5 [facility] Comment on above: Performed By: #### L 500.4050, L501.2300, L501.5200, L100.0100 #### [facility] [address] [place], [address] Erythrocyte distribution width (RBC) [Ratio] 13.4 % Normal 11.6-14.6 [facility] Comment on above: Performed By: #### L 500.4050, L501.2300, L501.5200, L100.0100 #### [facility] [address] [place], [address] Hematocrit (Bld) [Volume fraction] 36.5 % Low 40-54 [facility] Comment on above: Performed By: #### L 500.4050, L501.2300, L501.5200, L100.0100 #### [facility] [address] [place], [address] Hemoglobin (Bld) [Mass/Vol] 12.3 g/dL Low 13.0-16.5 [facility] Comment on above: Performed By: #### L 500.4050, L501.2300, L501.5200, L100.0100 #### [facility] [address] [place], [address] IG% 0.200 Normal 0.0-0.9 [facility] Comment on above: Result Comment: IG% - Immature Granulocytes (promyelocytes, myelocytes and metamyelocytes) > 1% indicates that a LEFT SHIFT is Present. Performed By: #### L 500.4050, L501.2300, L501.5200, L100.0100 #### [facility] [address] [place], [address] Lymphocytes/100 WBC (Bld) 19.2 % Normal 19-41 [facility] Comment on above: Performed By: #### L 500.4050, L501.2300, L501.5200, L100.0100 #### [facility] [address] [place], [address] MCH (RBC) [Entitic mass] 29.6 pg Normal 27.0-32.0 [facility] Comment on above: Performed By: #### L 500.4050, L501.2300, L501.5200, L100.0100 #### [facility] [address] [place], [address] MCHC (RBC) [Mass/Vol] 33.7 g/dL Normal 32-36 [facility] Comment on above: Performed By: #### L 500.4050, L501.2300, L501.5200, L100.0100 #### [facility] [address] [place], [address] MCV (RBC) [Entitic vol] 87.7 fL Normal 80-94 [facility] Comment on above: Performed By: #### L 500.4050, L501.2300, L501.5200, L100.0100 #### [facility] [address] [place], [address] Monocytes/100 WBC (Bld) 9.7 % Normal 0-10 [facility] Comment on above: Performed By: #### L 500.4050, L501.2300, L501.5200, L100.0100 #### [facility] [address] [place], [address] Neutrophils/100 WBC (Bld) 66.3 % Normal 47-70 [facility] Comment on above: Performed By: #### L 500.4050, L501.2300, L501.5200, L100.0100 #### [facility] [address] [place], [address] Nucleated RBC (Bld) [#/Vol] 0 10*3/uL Normal 0-5 [facility] Comment on above: Performed By: #### L 500.4050, L501.2300, L501.5200, L100.0100 #### [facility] [address] [place], [address] Platelet mean volume (Bld) [Entitic vol] 9.7 fL Normal 6.2-12.0 [facility] Comment on above: Performed By: #### L 500.4050, L501.2300, L501.5200, L100.0100 #### [facility] [address] [place], [address] Platelets (Bld) [#/Vol] 231 10*3/uL Normal 150-450 [facility] Comment on above: Performed By: #### L 500.4050, L501.2300, L501.5200, L100.0100 #### [facility] [address] [place], [address] RBC (Bld) [#/Vol] 4.16 10*6/uL Low 4.6-6.2 [facility] Comment on above: Performed By: #### L 500.4050, L501.2300, L501.5200, L100.0100 #### [facility] [address] [place], [address] RDW SD 43.3 fl Normal 35.1-43.9 [facility] Comment on above: Performed By: #### L 500.4050, L501.2300, L501.5200, L100.0100 #### [facility] [address] [place], [address] WBC (Bld) [#/Vol] 5.1 10*3/uL Normal 4.4-11.0 [facility] Comment on above: Performed By: #### L 500.4050, L501.2300, L501.5200, L100.0100 #### [facility] [address] [place], [address] Calculated very low density lipoprotein (VLDL) cholesterol measurementOrdered By: Enzo Mann on 08-18-2024 Calculated very low density lipoprotein (VLDL) cholesterol measurement 12 mg/dL 5-40 [facility] VLDL Cholesterol 12 mg/dL -40 [facility] Carbon dioxide, total [Moles /volume] in Central venous bloodOrdered By: Enzo Mann on 08-18-2024 CO2 [Moles/Vol] 23.3 mmol/L 21.0-32.0 [facility] Chloride assayOrdered By: Ben Mann on 08-18-2024 Chloride [Moles/Vol] 102 mmol/L 98-108 [facility] Duplex ultrasound of carotid artery reportOrdered By: Enzo Marina on 08-18-2024 Study report [facility] [address] [place] [address] Carotid Duplex Ultrasound 08/17/24 1354 MR#: [id number] Acct: [id number] Name: LEO ANGELO Rep #:[id number] : 1945 79 From: Enzo Dumont Attending Dr: Dr. Enzo Mann DO Status: ADM IN Ordering Dr: Enzo Mann DO Date: Location: ICU Sex: M C Admitted: 08/17/24 Reason For Study Reason For Study: CVA Rt. Velocities/BP Lt. Velocities/BP Prox CCA 31.5/6.9 cm/sec. Prox CCA 67.4/12.6 cm/sec. Mid CCA 21.8/4.7 cm/sec. Mid CCA 54.1/8.8 cm/sec. Dist CCA 25.8/4.7 cm/sec. Dist CCA 51.3/7.8 cm/sec. Prox ICA 39.4/10.9 cm/sec. Prox ICA 46.5/13.5 cm/sec. Mid ICA 130.2/27.9 cm/sec. Mid ICA 130.2/35.8 cm/sec. Dist ICA 74.0/15.6 cm/sec. Dist ICA 65.4/12.3 cm/sec. Rt. ICA/CCA = 6.0. Lt. ICA/CCA = 2.4. Prox ECA 53.5/4.6 cm/sec. Prox ECA 102.8/0.0 cm/sec. Rt. Vert. 28.6/2.2 cm/sec. Lt. Vert. 61.7/9.7 cm/sec. Right Extracranial There is heterogeneous, irregular atherosclerotic plaque noted in the right common carotid artery. There is heterogeneous, irregular atherosclerotic plaque noted in the right internal carotid artery. The atherosclerotic plaque causes acoustic shadowing. There is heterogeneous, irregular atherosclerotic plaque noted in the right external carotid artery. Antegrade flow is noted in the right vertebral artery. Left Extracranial There is heterogeneous, irregular atherosclerotic plaque noted in the left common carotid artery. There is heterogeneous, irregular atherosclerotic plaque noted in the left internal carotid artery. There is heterogeneous, irregular atherosclerotic plaque noted in the left external carotid artery. The atherosclerotic plaque causes acoustic shadowing. Antegrade flow is noted in the left vertebral artery. Procedure Carotid Duplex [id number]. This is a Carotid Duplex examination using B-mode, color flow and specral Doppler. Exam performed portable in ICU/CCU. Preliminary given to Enzo Mann DO. VL/Carotid Duplex Ultrasound Interpretation Summary Moderate (50-69%) stenosis right extracranial internal carotid. Moderate (50-69%) stenosis left extracranial internal carotid. Patent and antegrade vertebrals bilaterally. Ordering Physician: Enzo Mann Performed By: Alaina Ivey RVT and Student 08/18/2422 Date _ Enzo Marina MD CC: Dr. Sera Castillo MD; Dr. Enzo Mann, DO ~ Date Dictated: 08/17/24 1354 Date Transcribed: 08/18/24721 Hand Ii Blocker: Signed [facility] [facility] Work Phone: Eosinophil percentageOrdered By: Enzo Mann on 08-18-2024 Eosinophils/100 WBC (Bld) 3.6 % 0-5 [facility] Erythrocyte distribution wid th ratioOrdered By: Enzo Mann on 08-18-2024 Erythrocyte distribution width (RBC) [Ratio] 13.4 % 11.6-14.6 [facility] Erythrocyte distribution wid th standard deviationOrdered By: Enzo Mann on 08-18-2024 Erythrocyte distribution width (RBC) [Entitic vol] 43.3 fL 35.1-43.9 [facility] Erythrocyte distribution width (RBC) [Ratio] 43.3 fl 35.1-43.9 [facility] Estimation of creatinine christen aranceOrdered By: Enzo Mann on 08-18-2024 Estimated Creatinine Clearance Calc 56.46 ml/min 50-250 [facility] GFR/1.73 sq M.predicted chai g non-blacks MDRD (S/P/Bld) [Vol rate/Area]Ordered By: Enzo Mann on 08-18-2024 Estimated GFR (MDRD) Non-Af Amer 90 >60 [facility] Comment on above: mL/min/1.73m2 CKD-EP I Creatinine Equation (2020) Glomerular filtration rate ( GFR) estimation/1.73 sq m using serum, plasma, or whole bOrdered By: Enzo Mann on 08-18-2024 GFR/1.73 sq M.predicted among non-blacks MDRD (S/P/Bld) [Vol rate/Area] 90 mL/min/{1.73_m2} >60 [facility] Comment on above: mL/min/1.73m2 CKD-EP I Creatinine Equation (2020) Hematocrit Auto (Bld) [Volum e fraction]Ordered By: Enzo Mann on 08-18-2024 Hematocrit (Bld) [Volume fraction] 36.5 % Low 40-54 [facility] Hemoglobin measurementOrdere d By: Enzo Mann on 08-18-2024 Hemoglobin (Bld) [Mass/Vol] 12.3 g/dL Low 13.0-16.5 [facility] Immature granulocytes/100 WB C Auto (Bld)Ordered By: Enzo Mann on 08-18-2024 Immature granulocytes/100 WBC (Bld) 0.200 % 0.0-0.9 [facility] Comment on above: IG% - Immature Granu locytes (promyelocytes, myelocytes and metamyelocytes) > 1% indicates that a LEFT SHIFT is Present. LDL calc ser/plasOrdered By: Enzo Mann on 08-18-2024 Cholesterol in LDL [Mass/Vol] 85 mg/dL [facility] Comment on above: Crsezkugkc=656-294 m g/dL & Higher Bltg=350 mg/dL or greater LDL Cholesterol, Calculated 85 mg/dL [facility] Comment on above: Ktdjhygduq=697-673 m g/dL & Higher Vpdv=684 mg/dL or greater Lipid Profileon 08-18-2024 CHOL:HDL 2.66 Normal [facility] Comment on above: Order Comment: Comme nts: NPO at [place] prior to lipid panel Performed By: #### L 500.4050, L501.2300, L501.5200, L100.0100 #### [facility] Laboratory [address] [place], [address] Cholesterol [Mass/Vol] 155 mg/dL Normal <=200 [facility] Comment on above: Order Comment: Comme nts: NPO at [place] prior to lipid panel Result Comment: Chol esterol level, Desirable <200 mg/dL Borderline high cholesterol 200-239 mg/dL High cholesterol >=240 mg/dL Recommendations of the NCEP Adult Treatment Panel for the following risk-cutoff thresholds for the [place] population. Performed By: #### L 500.4050, L501.2300, L501.5200, L100.0100 #### [facility] [address] [place], [address] Cholesterol in HDL [Mass/Vol] 58 mg/dL Normal [facility] Comment on above: Order Comment: Comme nts: NPO at [place] prior to lipid panel Result Comment: Zehra onal Cholesterol Education Program (NCEP) guidelines: <40 mg/dL: Low HDL-cholesterol (major risk factor for CHD) >= 60 mg/dL: High HDL-cholesterol (negative risk factor for CHD) HDL-cholesterol is affected by a number of factors, e.g. smoking, exercise, hormones, sex and age. Performed By: #### L 500.4050, L501.2300, L501.5200, L100.0100 #### [facility] [address] [place], [address] Cholesterol in LDL [Mass/Vol] 85 mg/dL Normal [facility] Comment on above: Order Comment: Comme nts: NPO at [place] prior to lipid panel Result Comment: Bord sqrhyu=286-106 mg/dL Higher Yzht=907 mg/dL or greater Performed By: #### L 500.4050, L501.2300, L501.5200, L100.0100 #### [facility] [address] [place], [address] Cholesterol in VLDL [Mass/Vol] 12 mg/dL Normal 5-40 [facility] Comment on above: Order Comment: Comme nts: NPO at [place] prior to lipid panel Performed By: #### L 500.4050, L501.2300, L501.5200, L100.0100 #### [facility] [address] [place], [address] Triglyceride [Mass/Vol] 59 mg/dL Normal [facility] Comment on above: Order Comment: Comme nts: NPO at [place] prior to lipid panel Result Comment: The drugs N-Acetylcysteine and Metamizole may falsely depress this assay. Normal range: <150 mg/dL Borderline High: 150-199 mg/dL High: 200-499 mg/dL Very High: >500 mg/dL Performed By: #### L 500.4050, L501.2300, L501.5200, L100.0100 #### [facility] [address] [place], [address] Lymphocytes Auto (Unsp spec) [#/Vol]Ordered By: Enzo Mann on 08-18-2024 Lymphocytes (Bld) [#/Vol] 0.97 10*3/uL 0.83-4.51 [facility] Lymphocytes/100 WBC Auto (Un sp spec)Ordered By: Enzo Mann on 08-18-2024 Lymphocytes/100 WBC (Bld) 19.2 % 19-41 [facility] MCV (mean corpuscular volume ) determinationOrdered By: Enzo Mann on 08-18-2024 MCV (RBC) [Entitic vol] 87.7 fL 80-94 [facility] Mean corpuscular hemoglobin (MCH) determinationOrdered By: Enzo Mann on 08-18-2024 MCH (RBC) [Entitic mass] 29.6 pg 27.0-32.0 [facility] Mean corpuscular hemoglobin concentration (MCHC) determinationOrdered By: Enzo Mann on 08-18-2024 MCHC (RBC) [Mass/Vol] 33.7 g/dL 32-36 [facility] Mean platelet volume determi nationOrdered By: Enzo Mann on 08-18-2024 Platelet mean volume (Bld) [Entitic vol] 9.7 fL 6.2-12.0 [facility] Monocyte percentageOrdered B y: Enzo Mann on 08-18-2024 Monocytes/100 WBC (Bld) 9.7 % 0-10 [facility] Neutrophil percentageOrdered By: Enzo Mann on 08-18-2024 Neutrophils/100 WBC (Bld) 66.3 % 47-70 [facility] Nucleated red blood cell per centageOrdered By: Enzo Mann on 08-18-2024 Nucleated RBC/100 WBC (Bld) [Ratio] 0 % 0-5 [facility] Platelet countOrdered By: Ben Mann on 08-18-2024 Platelets (Bld) [#/Vol] 231 10*3/uL 150-450 [facility] Potassium (Unsp spec) [Mass/ Vol]Ordered By: Enzo Mann on 08-18-2024 Potassium [Moles/Vol] 3.8 mmol/L 3.3-5.1 [facility] Potassium measurement (mass/ volume)Ordered By: Enzo Mann on 08-18-2024 Potassium (Unsp spec) [Mass/Vol] 3.8 mmol/L 3.3-5.1 [facility] RBC Auto (Bld) [#/Vol]Ordere d By: Enzo Mann on 08-18-2024 RBC (Bld) [#/Vol] 4.16 10*6/uL Low 4.6-6.2 [facility] Screening total cholesterol/ high density lipoprotein (HDL) cholesterol ratioOrdered By: Enzo Mann on 08-18-2024 Cholesterol.total/Chol esterol in HDL [Mass ratio] 2.66 {ratio} [facility] Serum creatinine measurement (mass/volume)Ordered By: Enzo Mann on 08-18-2024 Creatinine [Mass/Vol] 0.79 mg/dL 0.70-1.20 [facility] Serum glucose measurement (m ass/volume)Ordered By: Enzo Mann on 08-18-2024 Glucose [Mass/Vol] 92 mg/dL 70-99 [facility] Serum or plasma calcium oscar urement (mass/volume)Ordered By: Enzo Mann on 08-18-2024 Calcium [Mass/Vol] 9.3 mg/dL 7.6-11.0 [facility] Serum or plasma cholesterol in HDL measurement (mass/volume)Ordered By: Enzo Mann on 08-18-2024 Cholesterol in HDL [Mass/Vol] 58 mg/dL >40 [facility] Comment on above: National Cholesterol Education Program (NCEP) guidelines:<40 mg/dL: Low HDL-cholesterol (major risk factor for CHD)>= 60 mg/dL: High HDL-cholesterol (negative risk factor for CHD)HDL-cholesterol is affected by a number of factors, e.g. smoking, exercise, hormones, sex and age. Serum or plasma cholesterol measurement (mass/volume)Ordered By: Enzo Mann on 08-18-2024 Cholesterol [Mass/Vol] 155 mg/dL <201 [facility] Comment on above: Cholesterol level, D esirable <200 mg/dLBorderline high cholesterol 200-239 mg/dLHigh cholesterol >=240 mg/dLRecommendations of the NCEP Adult Treatment Panel for the following risk-cutoff thresholds for the [place] population. Serum or plasma urea nitroge n measurement (mass/volume)Ordered By: Enzo Mann on 08-18-2024 Urea nitrogen [Mass/Vol] 16 mg/dL 4-19 [facility] Sodium levelOrdered By: Enzo Mann on 08-18-2024 Sodium [Moles/Vol] 138 mmol/L 133-145 [facility] Triglycerides measurementOrd ered By: Enzo Mann on 08-18-2024 Triglyceride [Mass/Vol] 59 mg/dL <199 [facility] Comment on above: The drugs N-Acetylcy steine and Metamizole may falsely depress this assay. Normal range: <150 mg/dLBorderline High: 150-199 mg/dLHigh: 200-499 mg/dLVery High: >500 mg/dL White blood cell (WBC) count Ordered By: Enzo Mann on 08-18-2024 WBC (Bld) [#/Vol] 5.1 10*3/uL 4.4-11.0 [facility] 12 Lead EKGon 08-17-2024 12 Lead EKG [facility] Cardiovascular Services [address] [place] [address] 12 Lead EKG 08/17/24 0635 MR#: [id number] Acct: [id number] Name: LEO ANGELO Rep #: [id number] : 1945 79 From: Lokesh Morales MD Attending Dr: Dr. Enzo Mann DO Status: DIS IN Ordering Dr: Ray Dnenis DO Date: 08/17/24 Location: ICU Sex: M C Admitted: 08/17/24 Test Reason : POSS STROKE Blood Pressure : */* mmHG Vent. Rate : 58 BPM Atrial Rate : 58 BPM P-R Int : 136 ms QRS Dur : 90 ms QT Int : 452 ms P-R-T Axes : 83 -35 66 degrees QTcB Int : 443 ms Sinus bradycardia Left axis deviation Possible Anterior infarct , age undetermined Abnormal ECG Confirmed by CARMEN WILDER, ARCELIA ([id number]), film editor supervisor RANDAL KEL ([id number]) on 08/23/2024 11:12:45 AM Referred By: Confirmed By: ARCELIA MORALES MD 08/23/24 1112 Date Lokesh Morales MD CC: Dr. Sera Castillo MD; Dr. Enzo Mann DO; Ray Dennis DO Signed Normal [facility] Absolute neutrophil countOrd ered By: Ray Dennis on 08-17-2024 Neutrophils (Bld) [#/Vol] 3.8 10*3/uL 2.0-7.7 [facility] Activated partial thrombopla stin time (aPTT) in platelet poor plasma by coagulation aOrdered By: Ray Dennis on 08-17-2024 aPTT Coag (PPP) [Time] 28.4 s 24.1-36.2 [facility] Alcohol, Blood (Medical)-Ser umon 08-17-2024 SERUM ETOH < 10.1 Normal <=10.0 [facility] Comment on above: Result Comment: This test is for medical purposes only. The legal definition of intoxication varies according to local law. Performed By: #### L 500.4050, L501.2300, L501.5200, L100.0100 #### [facility] Laboratory [address] [place], [place], [address] Anion gap in Serum or Plasma Ordered By: Ray Dennis on 08-17-2024 Anion gap [Moles/Vol] 10 mmol/L 5-15 [facility] BUN/creatinine ratioOrdered By: Ray Dennis on 08-17-2024 Urea nitrogen/Creatinine [Mass ratio] 22.5 mg/mg High 10- [facility] Basic Metabolic Profile (BMP )on 08-17-2024 BUN/CRE 22.5 RATIO High - [facility] Comment on above: Performed By: #### L 500.4050, L501.2300, L501.5200, L100.0100 #### [facility] Laboratory [address] [place], [address] Calcium [Mass/Vol] 8.9 mg/dL Normal 7.6-11.0 [facility] Comment on above: Performed By: #### L 500.4050, L501.2300, L501.5200, L100.0100 #### [facility] Laboratory [address] [place], [address] Chloride [Moles/Vol] 101 mmol/L Normal 98-108 [facility] Comment on above: Performed By: #### L 500.4050, L501.2300, L501.5200, L100.0100 #### [facility] [address] [place], [address] CO2 [Moles/Vol] 23.5 mmol/L Normal 21.0-32.0 [facility] Comment on above: Performed By: #### L 500.4050, L501.2300, L501.5200, L100.0100 #### [facility] Laboratory [address] [place], [address] Creatinine [Mass/Vol] 0.85 mg/dL Normal 0.70-1.20 [facility] Comment on above: Performed By: #### L 500.4050, L501.2300, L501.5200, L100.0100 #### [facility] Laboratory [address] [place], [address] ECRCL 53.53 ml/min Normal 50-250 [facility] Comment on above: Performed By: #### L 500.4050, L501.2300, L501.5200, L100.0100 #### [facility] Laboratory [address] [place], [address] GAP 10 Normal 5-15 [facility] Comment on above: Performed By: #### L 500.4050, L501.2300, L501.5200, L100.0100 #### [facility] Laboratory [address] [place], [address] GFR/1.73 sq M.predicted among non-blacks MDRD (S/P/Bld) [Vol rate/Area] 88 mL/min/{1.73_m2} Normal >60 [facility] Comment on above: Result Comment: mL/m in/1.73m2 CKD-EPI Creatinine Equation (2020) Performed By: #### L 500.4050, L501.2300, L501.5200, L100.0100 #### [facility] Laboratory [address] [place], [address] Glucose [Mass/Vol] 127 mg/dL High 70-99 [facility] Comment on above: Performed By: #### L 500.4050, L501.2300, L501.5200, L100.0100 #### [facility] Laboratory [address] [place], [address] Potassium [Moles/Vol] 4.1 mmol/L Normal 3.3-5.1 [facility] Comment on above: Performed By: #### L 500.4050, L501.2300, L501.5200, L100.0100 #### [facility] Laboratory [address] [place], [address] Sodium [Moles/Vol] 134 mmol/L Normal 133-145 [facility] Comment on above: Performed By: #### L 500.4050, L501.2300, L501.5200, L100.0100 #### [facility] Laboratory [address] [place], [address] Urea nitrogen [Mass/Vol] 19 mg/dL Normal 4-19 [facility] Comment on above: Performed By: #### L 500.4050, L501.2300, L501.5200, L100.0100 #### [facility] Laboratory [address] [place], [address] Basophil percentageOrdered B y: Ray Dennis on 08-17-2024 Basophils/100 WBC (Bld) 1.4 % High 0-1 [facility] Brain without Contraston Brain without Contrast [facility] Imaging Services [address] [facility] [place] [address] Brain without Contrast MR#: [id number] Acct: [id number] Name: LEO ANGELO Rep #: [id number] : 1945 M 79 From: Phil Mcdowell MD PCP: Dr. Sera Castillo MD Status: ADM IN Study: Brain without Contrast Date of Exam: 08/17/24 Exam# [id number] Ordering Dr: Enzo Mann DO PROCEDURE: BRAIN WITHOUT CONTRAST (MRIBR), 08/17/2024 REASON FOR EXAM: CVA COMPARISON: CT and CTA of same date. TECHNIQUE: Multisequence multiplanar MRI brain was performed without intravenous contrast. Contrast: None. FINDINGS: Variable overall mild motion limitation. The coronal T2 sequence is moderately motion degraded. Cerebrum: Small acute infarct in the posterolateral aspect of the left thalamus with T2/FLAIR signal. No significant mass-effect or appreciable hemorrhagic conversion. Fairly advanced patchy supratentorial white matter signal abnormalities, nonspecific but compatible with chronic microvascular ischemic changes. Mild cerebral volume loss. Cerebellum: Punctate acute infarcts in the right cerebellar hemisphere, probably too small to evaluate on T2/FLAIR. No appreciable mass effect or hemorrhagic conversion. Brainstem: Unremarkable. Ventricles/extra-axial spaces: Unremarkable. Major flow voids: Better evaluated on comparison exams of same date. Abnormal right vertebral and basilar artery flow voids noted. Paranasal sinuses: Mild right mastoid effusion.. Scalp/calvarium: Unremarkable. Orbits: Bilateral cataract surgery.. Other: Partially empty sella, can be a normal variant or may be seen in the setting of idiopathic intracranial hypertension amongst other etiologies. MRI/Brain without Contrast IMPRESSION: 1. 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 Punctate acute infarcts in the right cerebellum. 2. Abnormal posterior circulation flow voids, better evaluated on previous CTA. 3. Mild right mastoid effusion. 4. Additional description as above. Findings in impression #1 were discussed by telephone with Dr. Mann at 9:33 am [facility] on 08/17/2024 Reading Location: [facility] CC: Dr. Sera Castillo MD; Dr. Enzo Mann DO Hand Ii Blocker: Signed Normal [facility] CBC W/Diff, Automatedon 08-07 Absolute Lymph 1.02 X10 3/uL Normal 0.83-4.51 [facility] Comment on above: Performed By: #### L 500.4050, L501.2300, L501.5200, L100.0100 #### [facility] Laboratory [address] [place], [address] Absolute Neut 3.8 X10 3/uL Normal 2.0-7.7 [facility] Comment on above: Performed By: #### L 500.4050, L501.2300, L501.5200, L100.0100 #### [facility] Laboratory [address] [place], [address] Basophils/100 WBC (Bld) 1.4 % High 0-1 [facility] Comment on above: Performed By: #### L 500.4050, L501.2300, L501.5200, L100.0100 #### [facility] Laboratory [address] [place], [address] Eosinophils/100 WBC (Bld) 2.0 % Normal 0-5 [facility] Comment on above: Performed By: #### L 500.4050, L501.2300, L501.5200, L100.0100 #### [facility] Laboratory [address] [place], [address] Erythrocyte distribution width (RBC) [Ratio] 13.5 % Normal 11.6-14.6 [facility] Comment on above: Performed By: #### L 500.4050, L501.2300, L501.5200, L100.0100 #### [facility] Laboratory [address] [place], [address] Hematocrit (Bld) [Volume fraction] 33.0 % Low 40-54 [facility] Comment on above: Performed By: #### L 500.4050, L501.2300, L501.5200, L100.0100 #### [facility] Laboratory [address] [place], [address] Hemoglobin (Bld) [Mass/Vol] 10.9 g/dL Low 13.0-16.5 [facility] Comment on above: Performed By: #### L 500.4050, L501.2300, L501.5200, L100.0100 #### [facility] Laboratory [address] [place], [address] IG% 0.200 Normal 0.0-0.9 [facility] Comment on above: Result Comment: IG% - Immature Granulocytes (promyelocytes, myelocytes and metamyelocytes) > 1% indicates that a LEFT SHIFT is Present. Performed By: #### L 500.4050, L501.2300, L501.5200, L100.0100 #### [facility] Laboratory [address] [place], [address] Lymphocytes/100 WBC (Bld) 18.4 % Low 19-41 [facility] Comment on above: Performed By: #### L 500.4050, L501.2300, L501.5200, L100.0100 #### [facility] Laboratory [address] [place], [address] MCH (RBC) [Entitic mass] 29.7 pg Normal 27.0-32.0 [facility] Comment on above: Performed By: #### L 500.4050, L501.2300, L501.5200, L100.0100 #### [facility] [address] [place], [address] MCHC (RBC) [Mass/Vol] 33.0 g/dL Normal 32-36 [facility] Comment on above: Performed By: #### L 500.4050, L501.2300, L501.5200, L100.0100 #### [facility] Laboratory [address] [place], [address] MCV (RBC) [Entitic vol] 89.9 fL Normal 80-94 [facility] Comment on above: Performed By: #### L 500.4050, L501.2300, L501.5200, L100.0100 #### [facility] Laboratory [address] [place], [address] Monocytes/100 WBC (Bld) 9.4 % Normal 0-10 [facility] Comment on above: Performed By: #### L 500.4050, L501.2300, L501.5200, L100.0100 #### [facility] Laboratory [address] [place], [address] Neutrophils/100 WBC (Bld) 68.6 % Normal 47-70 [facility] Comment on above: Performed By: #### L 500.4050, L501.2300, L501.5200, L100.0100 #### [facility] Laboratory [address] [place], [address] Nucleated RBC (Bld) [#/Vol] 0 10*3/uL Normal 0-5 [facility] Comment on above: Performed By: #### L 500.4050, L501.2300, L501.5200, L100.0100 #### [facility] [address] [place], [address] Platelet mean volume (Bld) [Entitic vol] 9.5 fL Normal 6.2-12.0 [facility] Comment on above: Performed By: #### L 500.4050, L501.2300, L501.5200, L100.0100 #### [facility] [address] [place], [address] Platelets (Bld) [#/Vol] 204 10*3/uL Normal 150-450 [facility] Comment on above: Performed By: #### L 500.4050, L501.2300, L501.5200, L100.0100 #### [facility] Laboratory [address] [place], [address] RBC (Bld) [#/Vol] 3.67 10*6/uL Low 4.6-6.2 [facility] Comment on above: Performed By: #### L 500.4050, L501.2300, L501.5200, L100.0100 #### [facility] [address] [place], [address] RDW SD 44.2 fl High 35.1-43.9 [facility] Comment on above: Performed By: #### L 500.4050, L501.2300, L501.5200, L100.0100 #### [facility] [address] [place], [address] WBC (Bld) [#/Vol] 5.6 10*3/uL Normal 4.4-11.0 [facility] Comment on above: Performed By: #### L 500.4050, L501.2300, L501.5200, L100.0100 #### [facility] [address] [place], [address] Carbon dioxide, total [Moles /volume] in Central venous bloodOrdered By: Ray Dennis on 08-17-2024 CO2 [Moles/Vol] 23.5 mmol/L 21.0-32.0 [facility] Carotid Duplex Ultrasoundon 08-17-2024 Carotid Duplex Ultrasound [facility] Cardiovascular Services [address] [place] [address] Carotid Duplex Ultrasound 08/17/24 1354 MR#: [id number] Acct: [id number] Name: LEO ANGELO Rep #: [id number] : 1945 79 From: Enzo Marina MD Attending Dr: Dr. Enzo Mann DO Status: ADM IN Ordering Dr: Enzo Mann DO Date: 08/17/24 Location: ICU Sex: M C Admitted: 08/17/24 Reason For Study Reason For Study: CVA Rt. Velocities/BP Lt. Velocities/BP Prox CCA 31.5/6.9 cm/sec. Prox CCA 67.4/12.6 cm/sec. Mid CCA 21.8/4.7 cm/sec. Mid CCA 54.1/8.8 cm/sec. Dist CCA 25.8/4.7 cm/sec. Dist CCA 51.3/7.8 cm/sec. Prox ICA 39.4/10.9 cm/sec. Prox ICA 46.5/13.5 cm/sec. Mid ICA 130.2/27.9 cm/sec. Mid ICA 130.2/35.8 cm/sec. Dist ICA 74.0/15.6 cm/sec. Dist ICA 65.4/12.3 cm/sec. Rt. ICA/CCA = 6.0. Lt. ICA/CCA = 2.4. Prox ECA 53.5/4.6 cm/sec. Prox ECA 102.8/0.0 cm/sec. Rt. Vert. 28.6/2.2 cm/sec. Lt. Vert. 61.7/9.7 cm/sec. Right Extracranial There is heterogeneous, irregular atherosclerotic plaque noted in the right common carotid artery. There is heterogeneous, irregular atherosclerotic plaque noted in the right internal carotid artery. The atherosclerotic plaque causes acoustic shadowing. There is heterogeneous, irregular atherosclerotic plaque noted in the right external carotid artery. Antegrade flow is noted in the right vertebral artery. Left Extracranial There is heterogeneous, irregular atherosclerotic plaque noted in the left common carotid artery. There is heterogeneous, irregular atherosclerotic plaque noted in the left internal carotid artery. There is heterogeneous, irregular atherosclerotic plaque noted in the left external carotid artery. The atherosclerotic plaque causes acoustic shadowing. Antegrade flow is noted in the left vertebral artery. Procedure Carotid Duplex 12465. This is a Carotid Duplex examination using B-mode, color flow and specral Doppler. Exam performed portable in ICU/CCU. Preliminary given to Enzo Mann DO. VL/Carotid Duplex Ultrasound Interpretation Summary Moderate (50-69%) stenosis right extracranial internal carotid. Moderate (50-69%) stenosis left extracranial internal carotid. Patent and antegrade vertebrals bilaterally. Ordering Physician: Enzo Mann Performed By: Alaina Ivey RVT and Student 08/18/24721 Date Enzo Marina MD CC: Dr. Sera Castillo MD; Dr. Enzo Mann DO Date Dictated: 08/17/24 1354 Date Transcribed: 08/18/24721 Hand Ii Blocker: Signed Normal [facility] Chest 1 Viewon 08-17-2024 Chest 1 View [facility] [address] [place] [address] [id number] Chest 1 View MR#: [id number] Acct: [id number] Name: LEO ANGELO Rep #: [id number] : 1945 M 79 From: De Washburn i, MD PCP: Dr. Sera Castillo MD Status: REG ER Study: Chest 1 View Date of Exam: 08/17/24 Exam# [id number] Ordering Dr: Ray Dennis DO PROCEDURE: CHEST 1 VIEW REASON FOR EXAM: NEURO DEFICIT, ACUTE, STROKE SUSPECTED TECHNIQUE: Frontal view of the chest. COMPARISON: Chest x-ray performed on 03/08/2022. FINDINGS: The heart size is normal. Interstitial markings appears to be increased when compared to prior examination. At the lung bases, there are conglomerate aeration of hazy interstitial opacities. These may be further evaluated with cross-sectional imaging. RAD/Chest 1 View IMPRESSION: As above. Reading Location: [facility] CC: Dr. Sera Castillo MD; Ray Dennis DO Hand Ii Blocker: Signed Normal [facility] Chloride assayOrdered By: Jamila Dennis on 08-17-2024 Chloride [Moles/Vol] 101 mmol/L 98-108 [facility] Echo Completeon 08-17-2024 Echo Complete [facility] Cardiovascular Services [address] [place] [address] Echo Complete 08/17/24 1120 MR#: [id number] Acct: [id number] Name: LEO ANGELO Rep #: [id number] : 1945 79 From: Lokesh Morales MD Attending Dr: Dr. Enzo Mann DO Status: ADM IN Ordering Dr: Enzo Mann DO Date: 08/17/24 Location: ICU Sex: M C Admitted: 08/17/24 Reason For Study Reason For Study: TIA/CVA Procedure This was a 2D Doppler, Color Flow transthoracic echocardiogram. Exam performed portable in ICU/CCU. Left Ventricle Normal LV size. The estimated ejection fraction is 65 %. No evidence for diastolic dysfunction. No regional wall motion abnormalities noted. Right Ventricle Normal RV size. Normal systolic function. Atria The left and right atria are normal. No doppler evidence for ASD. Mitral Valve There is no mitral valve stenosis. No mitral valve insufficiency. Tricuspid Valve There is no tricuspid stenosis. Mild tricuspid valve insufficiency. Pulmonary artery systolic pressure is 35 mmHg. Aortic Valve Aortic sclerosis, no stenosis. There is no aortic stenosis. No aortic valve insufficiency. Pulmonic Valve There is no pulmonic valvular stenosis. No pulmonic valve insufficiency. Great Vessels Normal sized aortic root. Pericardium/Pleural No pericardial effusion. MMode/2D Measurements Calculations LVIDd: 4.4 cm IVSd: 0.91 cm Ao root diam: 3.4 cm LVIDs: 2.8 cm LVPWd: 0.97 cm RVDd: 3.8 cm FS: 36.1 % LAV(MOD-bp): 32.3 ml LVAd ap4: 28.5 cm2 SV(MOD-sp4): 61.5 ml LAV(MOD-bp) Indexed: 18.9 ml/m2 LVLd ap4: 7.5 cm SI(MOD-sp4): 35.9 ml/m2 LAV(MOD-sp2): 28.4 ml EDV(MOD-sp4): 87.5 ml LAV(MOD-sp4): 30.8 ml EDV(sp4-el): 91.9 ml LVAs ap4: 13.4 cm2 LVLs ap4: 6.2 cm ESV(MOD-sp4): 26.0 ml ESV(sp4-el): 24.5 ml EF(MOD-sp4): 70.3 % EF(sp4-el): 73.4 % SV(sp4-el): 67.4 ml LA A4 area: 14.0 cm2 LA dimension(2D): 2.9 cm RA A4 area: 16.4 cm2 TAPSE: 2.4 cm Time Measurements MV dec time: 0.21 sec Doppler Measurements Calculations MV E max rosas: 92.3 cm/sec Lat Peak E' Rosas: 11.4 cm/sec Med Peak E' Rosas: 11.9 cm/sec MV A max rosas: 74.7 cm/sec E/E' lat: 8.1 E/E' med: 7.7 MV E/A: 1.2 Ao V2 max: 112.7 cm/sec LV V1 max: 93.9 cm/sec PA V2 max: 100.5 cm/sec Ao max P.1 mmHg LV V1 max P.5 mmHg TR max rosas: 284.4 cm/sec TR max P.4 mmHg ECHO/Echo Complete Interpretation Summary The estimated ejection fraction is 65 %. No evidence for diastolic dysfunction. Ordering Physician: Enzo Mann Referring Physician: SERA CASTILLO Performed By: Asha Rae RD 08/17/24 1221 Date Lokesh Morales MD CC: Dr. Sera Castillo MD; Dr. Enzo Mann DO Date Dictated: 08/17/24 1120 Date Transcribed: 08/17/24 1221 Hand Ii Blocker: Signed Normal [facility] Echocardiogram study reportO rdered By: Lokesh Morales on 08-17-2024 Study report [facility] Cardiovascular Services [address] [place] [address]. [place] [address] Echo Complete 08/17/24 1120 MR#: [id number] Acct: [id number] Name: LEO ANGELO Rep #:[id number] : 1945 79 From: Lokesh sweeney MD Attending Dr: Dr. Enzo Mann DO Status: ADM IN Ordering Dr: Enzo Mann DO Date: Location: ICU Sex: M C Admitted: 08/17/24 Reason For Study Reason For Study: TIA/CVA Procedure This was a 2D Doppler, Color Flow transthoracic echocardiogram. Exam performed portable in ICU/CCU. Left Ventricle Normal LV size. The estimated ejection fraction is 65 %. No evidence for diastolic dysfunction. No regional wall motion abnormalities noted. Right Ventricle Normal RV size. Normal systolic function. Atria The left and right atria are normal. No doppler evidence for ASD. Mitral Valve There is no mitral valve stenosis. No mitral valve insufficiency. Tricuspid Valve There is no tricuspid stenosis. Mild tricuspid valve insufficiency. Pulmonary artery systolic pressure is 35 mmHg. Aortic Valve Aortic sclerosis, no stenosis. There is no aortic stenosis. No aortic valve insufficiency. Pulmonic Valve There is no pulmonic valvular stenosis. No pulmonic valve insufficiency. Great Vessels Normal sized aortic root. Pericardium/Pleural No pericardial effusion. MMode/2D Measurements & Calculations LVIDd: 4.4 cm IVSd: 0.91 cm Ao root diam: 3.4 cm LVIDs: 2.8 cm LVPWd: 0.97 cm RVDd: 3.8 cm FS: 36.1 % LAV(MOD-bp): 32.3 ml LVAd ap4: 28.5 cm2 SV(MOD-sp4): 61.5 ml LAV(MOD-bp) Indexed: 18.9 ml/m2 LVLd ap4: 7.5 cm SI(MOD-sp4): 35.9 ml/m2 LAV(MOD-sp2): 28.4 ml EDV(MOD-sp4): 87.5 ml LAV(MOD-sp4): 30.8 ml EDV(sp4-el): 91.9 ml LVAs ap4: 13.4 cm2 LVLs ap4: 6.2 cm ESV(MOD-sp4): 26.0 ml ESV(sp4-el): 24.5 ml EF(MOD-sp4): 70.3 % EF(sp4-el): 73.4 % SV(sp4-el): 67.4 ml LA A4 area: 14.0 cm2 LA dimension(2D): 2.9 cm RA A4 area: 16.4 cm2 TAPSE: 2.4 cm Time Measurements MV dec time: 0.21 sec Doppler Measurements & Calculations MV E max rosas: 92.3 cm/sec Lat Peak E' Rosas: 11.4 cm/sec Med Peak E' Rosas: 11.9 cm/sec MV A max rosas: 74.7 cm/sec E/E' lat: 8.1 E/E' med: 7.7 MV E/A: 1.2 Ao V2 max: 112.7 cm/sec LV V1 max: 93.9 cm/sec PA V2 max: 100.5 cm/sec Ao max P.1 mmHg LV V1 max P.5 mmHg TR max rosas: 284.4 cm/sec TR max P.4 mmHg ECHO/Echo Complete Interpretation Summary The estimated ejection fraction is 65 %. No evidence for diastolic dysfunction. Ordering Physician: Enzo Mann Referring Physician: SERA CASTILLO Performed By: Asha Rae RDCS 08/17/24 1221 Date _ Lokesh Morales MD CC: Dr. Sera Castillo MD; Dr. Enzo Mann DO ~ Date Dictated: 08/17/24 1120 Date Transcribed: 08/17/24 1221 Hand Ii Blocker: Signed [facility] Work Phone: Emergency Department Summary on 08-17-2024 Emergency Department Summary [facility] Medical Records Department [address] [place] [address] Emergency Department Summary 08/17/24 MR#: [id number] Acct: [id number] Name: LEO ANGELO Rep #: [id number] : 1945 79 From: Ray Dennis DO PCP: Dr. Sera Castillo MD Status:REG ER Location: ED HPI History of Present Illness Chief Complaint: Stroke Alert Informant: patient and EMS Narrative Narrative: Patient is an 79-year-old male with past medical history of hypertension hyperlipidemia COPD nicotine dependence and CAD. Reportedly he went to bed around 830/9 PM last night and then awoke this morning and had a right arm and leg weakness as well as inability to stand or sit up as he was falling towards the right. Secondary to this EMS was called. They reported upon arrival he is awake and alert but they note right sided weakness. They report his blood sugar is normal. With concern for an acute CVA he was transported to the ER for evaluation. Upon arrival to the ER he is awake and alert and does have right sided deficit but there is improvement in strength of the arms and legs compared to a EMS reported. 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) Alcoholism Major depression COPD (chronic obstructive pulmonary disease) Essential (primary) hypertension AAA (abdominal aortic aneurysm) without rupture Home Medications ???Medication ???Instructions ???Recorded ???Last Taken ???Type ramipril 10 mg capsule 10 mg PO DAILY 04/12/21 Unknown Hi story atorvastatin 40 mg tablet 40 mg PO DAILY #30 tabs 05/07/21 U nknown Rx aspirin 81 mg chewable tablet 81 mg PO DAILY 03/08/22 Unknown Hi story omeprazole 40 mg capsule,delayed 40 mg PO DAILY #30 caps 03/08/22 U nknown Rx release nifedipine 30 mg tablet,extended 30 mg PO DAILY PCP had him on 60 1 Unknown Rx release 24 hr mg but bp too low, please change #90 tabs mecobalamin (vitamin B12) 1,000 1,000 mcg PO DAILY 05/20/23 Unknow n History mcg chewable tablet Allergy/AdvReac Type Severity Reaction Status Date / Time latex Allergy Rash Verified 08/17/24 05:56 Family History Mother CVA (cerebral vascular accident) Surgical History History of left heart catheterization (09/11/18) History of total right hip replacement Social History Smoking Status: Current every day smoker tobacco type: cigarettes alcohol intake: former substance use type: does not use caffeine: Yes Type: coffee ROS ROS ED Constitutional Constitutional ED: Denies chills or fever(s) Eyes Eyes: Denies blurry vision or change in vision ENT ENT ED: Denies sore throat Cardiovascular Cardiovascular: Denies chest pain, palpitations or racing heartbeat Respiratory/Chest Respiratory/Chest: Denies cough or dyspnea Gastrointestinal Gastrointestinal: Denies abdominal pain, diarrhea, nausea or vomiting Genitourinary Genitourinary ED: Denies dysuria Musculoskeletal Musculoskeletal: Denies back pain or neck pain Integumentary Denies rash Neurologic Neurologic: Reports paresthesias and weakness; Denies headache(s) Hematologic/Lymphatic Hematologic/Lymphatic: Denies easy bleeding or easy bruising EXAM Physical Exam Const Vital Signs: 08/17/24 05:55 08/17/24 05:56 08/17/24 06:03 Temperature 98.0 F Temperature Source Oral Pulse Rate 60 61 Respiratory Rate 16 16 Blood Pressure 135/63 H 105/65 128/63 H Blood Pressure Mean 87 78 84 Pulse Ox 97 97 Oxygen Delivery Method Room Air Room Air Room Air 08/17/24 06:09 08/17/24 06:25 08/17/24 06:30 Temperature Temperature Source Pulse Rate 60 60 Respiratory Rate 18 18 Blood Pressure 119/64 119/64 Blood Pressure Mean 82 82 Pulse Ox 94 98 98 Oxygen Delivery Method Room Air Room Air Room Air 08/17/24 06:54 08/17/24 07:00 08/17/24 07:00 Temperature Temperature Source Pulse Rate 66 62 63 Respiratory Rate 18 18 18 Blood Pressure 122/63 H 122/63 H 122/63 H Blood Pressure Mean 82 82 82 Pulse Ox 96 97 97 Oxygen Delivery Method Room Air Room Air Room Air Positive well nourished and well developed General Appearance ED: well developed; Negative for pallor HEENT HEENT Narrative: Normocephalic atraumatic Eyes PERRL and EOMs intact bilaterally General Eye ED: Negative for scleral icterus Neck supple Neck Narrative: No nuchal rigi (more content not included)... Normal [facility] Eosinophil percentageOrdered By: Ray Dennis on 08-17-2024 Eosinophils/100 WBC (Bld) 2.0 % 0-5 [facility] Erythrocyte distribution wid th ratioOrdered By: Ray Dennis on 08-17-2024 Erythrocyte distribution width (RBC) [Ratio] 13.5 % 11.6-14.6 [facility] Erythrocyte distribution wid th standard deviationOrdered By: Ray Dennis on 08-17-2024 Erythrocyte distribution width (RBC) [Entitic vol] 44.2 fL High 35.1-43.9 [facility] Estimation of creatinine christen aranceOrdered By: Ray Dennis on 08-17-2024 Estimated Creatinine Clearance Calc 53.53 ml/min 50-250 [facility] Ethanol [Mass/Vol]Ordered By : Ray Dennis on 08-17-2024 Ethyl Alcohol Level < 10.1 mg/dL <10.1 [facility] Comment on above: This test is for med ical purposes only. The legal definition of intoxication varies according to local law. GFR/1.73 sq M.predicted chai g non-blacks MDRD (S/P/Bld) [Vol rate/Area]Ordered By: Ray Dennis on 08-17-2024 Estimated GFR (MDRD) Non-Af Amer 88 >60 [facility] Comment on above: mL/min/1.73m2 CKD-EP I Creatinine Equation (2020) H AND P Exam - Hospitaliston 08-17-2024 H&P Exam - Hospitalist [facility] Medical Records Department [address] [place] [address] H P Exam - Hospitalist 08/17/24 0740 MR#: [id number] Acct: [id number] Name: LEO ANGELO Rep #: [id number] : 1945 79 From: Enzo Mann DO PCP: Dr. Sera Castillo MD Status:ADM IN Location: ICU [id number] HPI - General General Date of Service: 08/17/24 Chief Complaint: Right-sided weakness HPI Narrative LEO ANGELO, is a 79 M who presents with right-sided weakness. Patient awoke this morning with right-sided weakness and instability. Last known well was around 2029 on the . Patient had dense right-sided hemiparesis when he presented. Patient underwent a workup in the emergency room. CTA of the head and neck showed an acute basilar artery thrombosis, right supra Teba heart cheerio occlusion which may be acute to subacute. Partial thrombosis of the visualized subclavian artery, greater than 70% stenosis of the left proximal ICA, approximately 50% stenosis of the right proximal ICA. Partial thrombosis of the right subclavian artery. [facility] teleneurology was consulted and patient was deemed not a candidate for TNK given unknown time of onset greater than 4 hours and did not feel that transfer was necessary for the CTA findings. Patient has never had a stroke before. 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) Alcoholism Major depression COPD (chronic obstructive pulmonary disease) Essential (primary) hypertension AAA (abdominal aortic aneurysm) without rupture Home Medications ???Medication ???Instructions ???Recorded ???Last Taken ???Type ramipril 10 mg capsule 10 mg PO DAILY 04/12/21 Unknown Hi story atorvastatin 40 mg tablet 40 mg PO DAILY #30 tabs 05/07/21 U nknown Rx aspirin 81 mg chewable tablet 81 mg PO DAILY 03/08/22 Unknown Hi story omeprazole 40 mg capsule,delayed 40 mg PO DAILY #30 caps 03/08/22 U nknown Rx release nifedipine 30 mg tablet,extended 30 mg PO DAILY PCP had him on 60 1 Unknown Rx release 24 hr mg but bp too low, please change #90 tabs mecobalamin (vitamin B12) 1,000 1,000 mcg PO DAILY 05/20/23 Unknow n History mcg chewable tablet Allergy/AdvReac Type Severity Reaction Status Date / Time latex Allergy Rash Verified 08/17/24 05:56 Family History Mother CVA (cerebral vascular accident) Surgical History History of total right hip replacement History of left heart catheterization (09/11/18) Social History Smoking Status: Current every day smoker tobacco type: cigarettes alcohol intake: former substance use type: does not use caffeine: Yes Type: coffee ROS ROS Narrative No visual changes. No headache. All review of systems were negative except as mentioned above in the history of present illness and the other review of systems. Vital Signs Vital Signs Vital Signs: 08/17/24 05:55 08/17/24 05:56 08/17/24 06:03 Temperature 36.7 C Temperature Source Oral Pulse Rate 60 61 Respiratory Rate 16 16 Blood Pressure 135/63 H 105/65 128/63 H Blood Pressure Mean 87 78 84 Pulse Ox 97 97 Oxygen Delivery Method Room Air Room Air Room Air 08/17/24 06:09 08/17/24 06:25 08/17/24 06:30 Temperature Temperature Source Pulse Rate 60 60 Respiratory Rate 18 18 Blood Pressure 119/64 119/64 Blood Pressure Mean 82 82 Pulse Ox 94 98 98 Oxygen Delivery Method Room Air Room Air Room Air 08/17/24 06:54 08/17/24 07:00 08/17/24 07:00 Temperature Temperature Source Pulse Rate 66 62 63 Respiratory Rate 18 18 18 Blood Pressure 122/63 H 122/63 H 122/63 H Blood Pressure Mean 82 82 82 Pulse Ox 96 97 97 Oxygen Delivery Method Room Air Room Air Room Air 08/17/24 07:30 Temperature Temperature Source Pulse Rate 57 L Respiratory Rate 18 Blood Pressure 112/84 H Blood Pressure Mean 93 Pulse Ox 97 Oxygen Delivery Method Room Air Weight Weight: 61.5 kg Body Mass Index (BMI) 26.4 Physical Exam Narrative - Physical Exam General: Alert, Oriented x3, Cooperative HEENT: Atraumatic, PERRLA, EOMI, Normocephalic Oral: Moist Mucosa, No Gingival or Mucosal Lesions/ Ulcerations Neck: No thyromegaly, Negative Carotid Bruits Lungs: Clear to auscultation, Normal air movement Cardiovascular: Regular rate, Normal S1, Normal S2, No murmurs Abdomen: Bowel So (more content not included)... Normal [facility] Hematocrit Auto (Bld) [Volum e fraction]Ordered By: Ray Dennis on 08-17-2024 Hematocrit (Bld) [Volume fraction] 33.0 % Low 40-54 [facility] Hemoglobin measurementOrdere d By: Ray Dennis on 08-17-2024 Hemoglobin (Bld) [Mass/Vol] 10.9 g/dL Low 13.0-16.5 [facility] Immature granulocytes/100 WB C Auto (Bld)Ordered By: Ray Dennis on 08-17-2024 Immature granulocytes/100 WBC (Bld) 0.200 % 0.0-0.9 [facility] Comment on above: IG% - Immature Granu locytes (promyelocytes, myelocytes and metamyelocytes) > 1% indicates that a LEFT SHIFT is Present. International normalized rat io (INR) calculationOrdered By: Ray Dennis on 08-17-2024 INR Coag (Bld) [Relative time] 1.0 {INR} [facility] Lymphocytes Auto (Unsp spec) [#/Vol]Ordered By: Ray Dennis on 08-17-2024 Lymphocytes (Bld) [#/Vol] 1.02 10*3/uL 0.83-4.51 [facility] Lymphocytes/100 WBC Auto (Un sp spec)Ordered By: Ray Dennis on 08-17-2024 Lymphocytes/100 WBC (Bld) 18.4 % Low 19-41 [facility] MCV (mean corpuscular volume ) determinationOrdered By: Ray Dennis on 08-17-2024 MCV (RBC) [Entitic vol] 89.9 fL 80-94 [facility] MR/CON.PCM.NEon 08-17-2024 MR/CON.PCM.NE [facility] Medical Records Department [address] [place] [address] Consultation - Neurology 08/17/24 1238 MR#: [id number] Acct: [id number] Name: LEO ANGELO Rep #: [id number] : 1945 79 From: Pavithra Rodriguez MD PCP: Dr. Sera Castillo MD Status:ADM IN Location: ICU [id number] Assessment and Plan: Stroke Assessment/Plan LEO ANGEOL is a 79 M with a history of hypertension hyperlipidemia COPD nicotine dependence and CAD presents with right arm, leg weakness, numbness. 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 MRI: Right cerebellar and left thalamic stroke Posterior circulation stroke likely from Large vessel disease vs other causes Plan Continue ASA, plavix for now Please obtain ECHO, FLP, HbA1C Continue serial neurological outcome HTN: Permissive hypertensive acutely HLD: Continue statin ICA stenosis; F/up with vascular surgery routinely as out patient once out of acute phase PT, OT evaluation Smoking cessation Stroke education Thanks for consult. Spent 80 min in evaluation and management of this patient. HPI Consult Data Date of Consult: 08/17/24 HPI Narrative HPI Narrative: LEO ANGELO, is a 79 M with past medical history of hypertension hyperlipidemia COPD nicotine dependence and CAD. He went to bed around 830/9 PM last night and then awoke this morning around 2- 2:30 am with right arm and leg weakness as well as inability to stand or sit up as he was falling towards the right. Later EMS was called. His blood sugar is normal. Upon arrival to the ER he is awake and alert with right sided deficit but there is improvement in strength of the arms and legs compared to a EMS reported. He feels numb of the right side along with weakness. he denies having slurred speech or facial droop. CTA: Showed BA non occlusive thrombus, RVA occlusion, R subclavian partial thrombus, 70% left ICA and 50% LANIE stenosis. 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) Alcoholism Major depression COPD (chronic obstructive pulmonary disease) Essential (primary) hypertension AAA (abdominal aortic aneurysm) without rupture Home Medications ???Medication ???Instructions ???Recorded ???Last Taken ???Type ramipril 10 mg capsule 10 mg PO DAILY 04/12/21 Unknown Hi story atorvastatin 40 mg tablet 40 mg PO DAILY #30 tabs 05/07/21 U nknown Rx aspirin 81 mg chewable tablet 81 mg PO DAILY 03/08/22 08/16/24 H istory omeprazole 40 mg capsule,delayed 40 mg PO DAILY #30 caps 03/08/22 U nknown Rx release nifedipine 30 mg tablet,extended 30 mg PO DAILY PCP had him on 60 1 Unknown Rx release 24 hr mg but bp too low, please change #90 tabs Allergy/AdvReac Type Severity Reaction Status Date / Time latex Allergy Rash Verified 08/17/24 05:56 Family History Mother CVA (cerebral vascular accident) Surgical History History of total right hip replacement History of left heart catheterization (09/11/18) Social History Smoking Status: Current every day smoker tobacco type: cigarettes alcohol intake: former substance use type: does not use caffeine: Yes Type: coffee Vital Signs Vital Signs Vital Signs: 08/17/24 05:55 08/17/24 05:56 08/17/24 06:03 Temperature 98.0 F Temperature Source Oral Pulse Rate 60 61 Respiratory Rate 16 16 Blood Pressure 135/63 H 105/65 128/63 H Blood Pressure Mean 87 78 84 Blood Pressure Source Blood Pressure Position Blood Pressure Location Pulse Ox 97 97 Oxygen Delivery Method Room Air Room Air Room Air 08/17/24 06:09 08/17/24 06:25 08/17/24 06:30 Temperature Temperature Source Pulse Rate 60 60 Respiratory Rate 18 18 Blood Pressure 119/64 119/64 Blood Pressure Mean 82 82 Blood Pressure Source Blood Pressure Position Blood Pressure Location Pulse Ox 94 98 98 Oxygen Delivery Method Room Air Room Air Room Air 08/17/24 06:54 08/17/24 07:00 08/17/24 07:00 Temperature Temperature Source Pulse Rate 66 62 63 Respiratory Rate 18 18 (more content not included)... Normal [facility] Magnetic resonance imaging r eportOrdered By: Phil Mcdowell on 08-17-2024 Study report [facility] Imaging Services [address] [place], [place] [address] Brain without Contrast MR#: [id number] Acct: [id number] Name: LEO ANGELO Rep #: [id number] : 1945 M 79 From: Rima Mcdowell MD PCP: Dr. Sera Castillo MD Status: ADM I N Study:Brain without Contrast Date of Exam: 08/17/24 Exam# [id number] Ordering Dr: Enzo Mann DO PROCEDURE: BRAIN WITHOUT CONTRAST (MRIBR), 08/17/2024 REASON FOR EXAM: CVA COMPARISON: CT and CTA of same date. TECHNIQUE: Multisequence multiplanar MRI brain was performed without intravenous contrast. Contrast: None. FINDINGS: Variable overall mild motion limitation. The coronal T2 sequence is moderately motion degraded. Cerebrum: Small acute infarct in the posterolateral aspect of the left thalamus with T2/FLAIR signal. No significant mass-effect or appreciable hemorrhagic conversion. Fairly advanced patchy supratentorial white matter signal abnormalities, nonspecific but compatible with chronic microvascular ischemic changes. Mild cerebral volume loss. Cerebellum: Punctate acute infarcts in the right cerebellar hemisphere, probablytoo small to evaluate on T2/FLAIR. No appreciable mass effect or hemorrhagic conversion. Brainstem: Unremarkable. Ventricles/extra-axial spaces: Unremarkable. Major flow voids: Better evaluated on comparison exams of same date. Abnormal right vertebral and basilar artery flow voids noted. Paranasal sinuses: Mild right mastoid effusion.. Scalp/calvarium: Unremarkable. Orbits: Bilateral cataract surgery.. Other: Partially empty sella, can be a normal variant or may be seen in the setting of idiopathic intracranial hypertension amongst other etiologies. MRI/Brain without Contrast IMPRESSION: 1. 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 Punctate acute infarcts in the right cerebellum. 2. Abnormal posterior circulation flow voids, better evaluated on previous CTA. 3. Mild right mastoid effusion. 4. Additional description as above. Findings in impression #1 were discussed by telephone with Dr. Mann at 9:33 am [facility] on 08/17/2024 Reading Location: [facility] CC: Dr. Sera Castillo MD; Dr. Enzo Mann DO ~ Hand Ii Blocker: Signed [facility] Mean corpuscular hemoglobin (MCH) determinationOrdered By: Ray Dennis on 08-17-2024 MCH (RBC) [Entitic mass] 29.7 pg 27.0-32.0 [facility] Mean corpuscular hemoglobin concentration (MCHC) determinationOrdered By: Ray Dennis on 08-17-2024 MCHC (RBC) [Mass/Vol] 33.0 g/dL 32-36 [facility] Mean platelet volume determi nationOrdered By: Ray Dennis on 08-17-2024 Platelet mean volume (Bld) [Entitic vol] 9.5 fL 6.2-12.0 [facility] Monocyte percentageOrdered B y: Ray Dennis on 08-17-2024 Monocytes/100 WBC (Bld) 9.4 % 0-10 [facility] Neutrophil percentageOrdered By: Ray Dennis on 08-17-2024 Neutrophils/100 WBC (Bld) 68.6 % 47-70 [facility] Nucleated red blood cell per centageOrdered By: Ray Dennis on 08-17-2024 Nucleated RBC/100 WBC (Bld) [Ratio] 0 % 0-5 [facility] Partial Thromboplast Timeon 08-17-2024 aPTT Coag (Bld) [Time] 28.4 s Normal 24.1-36.2 [facility] Comment on above: Performed By: #### L 500.4050, L501.2300, L501.5200, L100.0100 #### [facility] Laboratory [address] [place], [address] Platelet countOrdered By: Jamila Dennis on 08-17-2024 Platelets (Bld) [#/Vol] 204 10*3/uL 150-450 [facility] Potassium (Unsp spec) [Mass/ Vol]Ordered By: Ray Dennis on 08-17-2024 Potassium [Moles/Vol] 4.1 mmol/L 3.3-5.1 [facility] Prothrombin Time w/INRon INR Coag (PPP) [Relative time] 1.0 {INR} Normal [facility] Comment on above: Performed By: #### L 500.4050, L501.2300, L501.5200, L100.0100 #### [facility] Laboratory [address] [place], [address] PT Coag (PPP) [Time] 13.6 s Normal 11.7-14.9 [facility] Comment on above: Performed By: #### L 500.4050, L501.2300, L501.5200, L100.0100 #### [facility] Laboratory [address] [place], [address] Prothrombin timeOrdered By: Ray Dennis on 08-17-2024 PT Coag (PPP) [Time] 13.6 s 11.7-14.9 [facility] RBC Auto (Bld) [#/Vol]Ordere d By: Ray Dennis on 08-17-2024 RBC (Bld) [#/Vol] 3.67 10*6/uL Low 4.6-6.2 [facility] STROKE Brain/Head without Co nton 08-17-2024 STROKE Brain/Head without Cont [facility] Imaging Services [address] [place], [place] [address] STROKE Brain/Head without Cont MR#: [id number] Acct: [id number] Name: LEO ANGELO Rep #: [id number] : 1945 M 79 From: De Washburn i, MD PCP: Dr. Sera Castillo MD Status: REG ER Study: STROKE Brain/Head without Cont Date of Exam: 0 08/17/24 Exam# [id number] Ordering Dr: Ray Dennis DO PROCEDURE: STROKE BRAIN/HEAD WITHOUT CONT REASON FOR EXAM: NEURO DEFICIT, ACUTE, STROKE SUSPECTED TECHNIQUE: CT brain was performed without intravenous contrast. COMPARISON: None. FINDINGS: Extensive periventricular white matter changes are present consistent with chronic microvascular ischemic disease. Ventricles and sulci are mildly prominent due to volume loss. Bifrontal volume loss are also present. There is no definite acute intracranial hemorrhage, mass effect or midline shift. The calvarium is intact. Visualized paranasal sinuses are unremarkable. CT/STROKE Brain/Head without Cont IMPRESSION: No acute intracranial hemorrhage, mass effect or midline shift. Extensive chronic microvascular ischemic disease. If there is concern for acute infarct, MRI may be obtained. One or more dose reduction techniques were used (e.g., Automated exposure control, adjustment of the mA and/or kV according to patient size, use of iterative reconstruction technique). Reading Location: [facility] CC: Dr. Sera Castillo MD; Ray Dennis DO Hand Ii Blocker: Signed Normal [facility] STROKE CTA Head AND Neck W/C onon 08-17-2024 STROKE CTA Head AND Neck W/Con [facility] Imaging Services [address] [place] [address] STROKE CTA Head AND Neck W/Con MR#: [id number] Acct: [id number] Name: LEO ANGELO Rep #: [id number] : 1945 M 79 From: De Washburn i, MD PCP: Dr. Sera Castillo MD Status: REG ER Study: STROKE CTA Head AND Neck W/Con Date of Exam: 0 08/17/24 Exam# [id number] Ordering Dr: Ray Dennis DO PROCEDURE: STROKE CTA HEAD AND NECK W/CON REASON FOR EXAM: NEURO DEFICIT, ACUTE, STROKE SUSPECTED TECHNIQUE: CTA imaging of the head and neck from the aortic arch to the skull vertex with intravenous contrast. 3D reconstructions. CONTRAST: COMPARISON: CT brain performed on the same day. FINDINGS: Limited examination. There are filling defects present within the basilar artery highly suspicious for thrombus. The right vertebral artery is occluded at multiple segments.. These findings are highly suspicious for acute thrombosis of the basilar artery. The left vertebral arteries patent. There is partial thrombosis of the visualized portion of the right subclavian artery best seen on image 94/560. There is atheromatous calcification seen at the carotid bulb bilaterally, [id number]. This is resulting into greater than 70% stenosis within the proximal left ICA and approximately 50% stenosis within the proximal right ICA. The anterior circulation is patent. Apparent filling defect within the left IJ (image 230/560) may represent thrombosis versus artifact. CT/STROKE CTA Head AND Neck W/Con IMPRESSION: Limited examination. 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 Partial thrombosis of visualized subclavian artery. Greater than 70 percent stenosis within the left proximal ICA. Approximately 50 percent stenosis within the right proximal ICA. Partial thrombosis of the right subclavian artery, partially visualized. Ray Dennis MD was notified of the critical findings in the ED at 6:33 a.m. Eastern standard time. One or more dose reduction techniques were used (e.g., Automated exposure control, adjustment of the mA and/or kV according to patient size, use of iterative reconstruction technique). Red Alert: Acute basilar artery thrombosis, right vertebral artery thrombosis near the acute.. The critical information above was relayed directly by me by telephone to Ray Dennis on 08/17/2024 at 6:33 am with readback verification. Reading Location: [id number] CC: Dr. Sera Castillo MD; Ray Dennis DO Hand Ii Blocker: Signed Normal [facility] Serum creatinine measurement (mass/volume)Ordered By: Ray Dennis on 08-17-2024 Creatinine [Mass/Vol] 0.85 mg/dL 0.70-1.20 [facility] Serum glucose measurement (m ass/volume)Ordered By: Ray Dennis on 08-17-2024 Glucose [Mass/Vol] 127 mg/dL High 70-99 [facility] Serum or plasma calcium oscar urement (mass/volume)Ordered By: Ray Dennis on 08-17-2024 Calcium [Mass/Vol] 8.9 mg/dL 7.6-11.0 [facility] Serum or plasma ethanol oscar urement (mass/volume)Ordered By: Ray Dennis on 08-17-2024 Ethanol [Mass/Vol] mg/dL <10.1 [facility] Comment on above: This test is for med ical purposes only. The legal definition of intoxication varies according to local law. Serum or plasma urea nitroge n measurement (mass/volume)Ordered By: Ray Dennis on 08-17-2024 Urea nitrogen [Mass/Vol] 19 mg/dL 4-19 [facility] Sodium levelOrdered By: Davion Dennis on 08-17-2024 Sodium [Moles/Vol] 134 mmol/L 133-145 [facility] White blood cell (WBC) count Ordered By: Ray Dennis on 08-17-2024 WBC (Bld) [#/Vol] 5.6 10*3/uL 4.4-11.0 [facility] aPTT Coag (PPP) [Time]Ordere d By: Ray Dennis on 08-17-2024 aPTT Coag (Bld) [Time] 28.4 s 24.1-36.2 [facility] CBC W Auto Differential pane l (Bld)on 07-20-2024 Basophils (Bld) [#/Vol] 0.08 10*3/uL Normal <0.11 [facility] Comment on above: Order Comment: Speci men Type: BLOOD SPECIMENOrdering Facility: [facility] Address: [address] [place] [address] Performed By: #### 5 7021-8 ####[facility] LABCLIA [id number] [place] [address] [place] Basophils/100 WBC (Bld) 1.6 % Normal [facility] Comment on above: Order Comment: Speci men Type: BLOOD SPECIMENOrdering Facility: [facility] Address: [address] [place] [address] Performed By: #### 5 7021-8 ####[facility] LABCLIA [id number] [place] [address] [place] Differential cell count method Nom (Bld) Auto Normal [facility] Comment on above: Order Comment: Speci men Type: BLOOD SPECIMENOrdering Facility: [facility] Address: [address] [place] [address] Performed By: #### 5 7021-8 ####[facility] LABCLIA [id number] [place] [address] [place] Eosinophils (Bld) [#/Vol] 0.18 10*3/uL Normal <0.46 [facility] Comment on above: Order Comment: Speci men Type: BLOOD SPECIMENOrdering Facility: [facility] Address: [address] [place] [address] Performed By: #### 5 7021-8 ####[facility] LABCLIA [id number] [place] [address] [place] Eosinophils/100 WBC (Bld) 3.6 % Normal [facility] Comment on above: Order Comment: Speci men Type: BLOOD SPECIMENOrdering Facility: [facility] Address: [address] [place] [address] Performed By: #### 5 7021-8 ####[facility] LABIA [id number] [place] [address] [place] Erythrocyte distribution width (RBC) [Ratio] 13.6 % Normal 11.5-15.0 [facility] Comment on above: Order Comment: Speci men Type: BLOOD SPECIMENOrdering Facility: [facility] Address: [address] [place] [address] Performed By: #### 5 7021-8 ####[facility] LABIA [id number] [place] [address] [place] Hematocrit (Bld) [Volume fraction] 36.6 % Low 39.0-51.0 [facility] Comment on above: Order Comment: Speci men Type: BLOOD SPECIMENOrdering Facility: [facility] Address: [address] [place] [address] Performed By: #### 5 7021-8 ####[facility] LABIA [id number] [place] [address] [place] Hemoglobin (Bld) [Mass/Vol] 12.0 g/dL Low 13.0-17.0 [facility] Comment on above: Order Comment: Speci men Type: BLOOD SPECIMENOrdering Facility: [facility] Address: [address] [place] [address] Performed By: #### 5 7021-8 ####[facility] LABIA [id number] [place] [address] [place] Immature granulocytes (Bld) [#/Vol] 10*3/uL Normal <0.10 [facility] Comment on above: Order Comment: Speci men Type: BLOOD SPECIMENOrdering Facility: [facility] Address: [address] [place] [address] Performed By: #### 5 7021-8 ####[facility] LABCLIA [id number] [place] [address] [place] Immature granulocytes/100 WBC (Bld) 0.2 % Normal [facility] Comment on above: Order Comment: Speci men Type: BLOOD SPECIMENOrdering Facility: [facility] Address: [address] [place] [address] Performed By: #### 5 7021-8 ####[facility] LABCLIA [id number] [place] [address] [place] Lymphocytes (Bld) [#/Vol] 1.47 10*3/uL Normal 1.00-4.00 [facility] Comment on above: Order Comment: Speci men Type: BLOOD SPECIMENOrdering Facility: [facility] Address: [address] [place] [address] Performed By: #### 5 7021-8 ####[facility] LABIA [id number] [place] [address] [place] Lymphocytes/100 WBC (Bld) 29.3 % Normal [facility] Comment on above: Order Comment: Speci men Type: BLOOD SPECIMENOrdering Facility: [facility] Address: [address] [place] [address] Performed By: #### 5 7021-8 ####[facility] LABCLIA [id number] [place] [address] [place] MCH (RBC) [Entitic mass] 30.4 pg Normal 26.0-34.0 [facility] Comment on above: Order Comment: Speci men Type: BLOOD SPECIMENOrdering Facility: [facility] Address: [address] [place] [address] Performed By: #### 5 7021-8 ####[facility] LABCLIA [id number] [place] [address] [place] MCHC (RBC) [Mass/Vol] 32.8 g/dL Normal 30.5-36.0 [facility] Comment on above: Order Comment: Speci men Type: BLOOD SPECIMENOrdering Facility: [facility] Address: [address] [place] [address] Performed By: #### 5 7021-8 ####[facility] LABIA [id number] [place] [address] [place] MCV (RBC) [Entitic vol] 92.7 fL Normal 80.0-100.0 [facility] Comment on above: Order Comment: Speci men Type: BLOOD SPECIMENOrdering Facility: [facility] Address: [address] [place] [address] Performed By: #### 5 7021-8 ####[facility] LABIA [id number] [place] [address] [place] Monocytes (Bld) [#/Vol] 0.47 10*3/uL Normal <0.87 [facility] Comment on above: Order Comment: Speci men Type: BLOOD SPECIMENOrdering Facility: [facility] Address: [address] [place] [address] Performed By: #### 5 7021-8 ####[facility] LABCLIA [id number] [place] [address] [place] Monocytes/100 WBC (Bld) 9.4 % Normal [facility] Comment on above: Order Comment: Speci men Type: BLOOD SPECIMENOrdering Facility: [facility] Address: [address] [place] [address] Performed By: #### 5 7021-8 ####[facility] LABIA [id number] [place] [address] [place] Neutrophils (Bld) [#/Vol] 2.81 10*3/uL Normal 1.45-7.50 [facility] Comment on above: Order Comment: Speci men Type: BLOOD SPECIMENOrdering Facility: [facility] Address: [address] [place] [address] Performed By: #### 5 7021-8 ####[facility] LABCLIA [id number] [place] [address] [place] Neutrophils/100 WBC (Bld) 55.9 % Normal [facility] Comment on above: Order Comment: Speci men Type: BLOOD SPECIMENOrdering Facility: [facility] Address: [address] [place] [address] Performed By: #### 5 7021-8 ####[facility] LABCLIA [id number] [place] [address] [place] Nucleated RBC (Bld) [#/Vol] 10*3/uL Normal <0.01 [facility] Comment on above: Order Comment: Speci men Type: BLOOD SPECIMENOrdering Facility: [facility] Address: [address] [place] [address] Performed By: #### 5 7021-8 ####[facility] LABIA [id number] [place] [address] [place] Nucleated RBC/100 WBC (Bld) [Ratio] 0.0 /100 WBC Normal [facility] Comment on above: Order Comment: Speci men Type: BLOOD SPECIMENOrdering Facility: [facility] Address: [address] [place] [address] Performed By: #### 5 7021-8 ####[facility] LABCLIA [id number] [place] [address] [place] Platelet mean volume (Bld) [Entitic vol] 10.0 fL Normal 9.0-12.7 [facility] Comment on above: Order Comment: Speci men Type: BLOOD SPECIMENOrdering Facility: [facility] Address: [address] [place] [address] Performed By: #### 5 7021-8 ####[facility] LABCLIA [id number] [place] [address] [place] Platelets (Bld) [#/Vol] 239 10*3/uL Normal 150-400 [facility] Comment on above: Order Comment: Speci men Type: BLOOD SPECIMENOrdering Facility: [facility] Address: [address] [place] [address] Performed By: #### 5 7021-8 ####[facility] LABCLIA [id number] [place] [address] [place] RBC (Bld) [#/Vol] 3.95 10*6/uL Low 4.20-6.00 [facility] Comment on above: Order Comment: Speci men Type: BLOOD SPECIMENOrdering Facility: [facility] Address: [address] [place] [address] Performed By: #### 5 7021-8 ####[facility] LABCLIA [id number] [place] [address] [place] WBC (Bld) [#/Vol] 5.02 10*3/uL Normal 3.70-11.00 [facility] Comment on above: Order Comment: Speci men Type: BLOOD SPECIMENOrdering Facility: [facility] Address: [address] [place] [address] Performed By: #### 5 7021-8 ####[facility] LABIA [id number] [place] [address] [place] CNOVon 07-20-2024 CNOV Office Visit (INTMWS ) LEO ANGELO ([id number]) 1945 M Date Time Provider Department 07/20/24 3:00 PM SERA CASTILLO INTMWS During your visit today, we recorded the following information about you: Blood pressure Weight Height 109/61 63.8 kg 1.69 m Sera Castillo MD 07/20/2024 5:41 PM Signed Leo Angelo is a 79 year old male here for a Medicare wellness visit. Medicare Health Risk Assessment General Health He thinks it is good Exercise: Minutes/Day He is very active but does not exercise, does the stairs 4 times at least. Does have a lawn and garden in the summer. Exercise: Days/Week See Above Alcohol: Daily Use He does not drink Alcohol: Drinks/Day No Alcohol: 6 or more drinks No Feel off balance Yes Concerns: Teeth/Dentures No Concerns: Sexual function no Troubled by feelings No Frequency: Eating healthy diet No ADLs requiring help No Safety precautions in home/vehicle No Smoke, vape, chews tobacco No Difficulty hearing No Difficulty seeing Has lasik surgery a few years ago. Current Providers Specialists: I have reviewed specialist-related care of the patient in the medical record. Medical/Family history review Reviewed and updated problem list, medical/surgical/family/soc ial history, medications, and allergies. Opioid use review Opioid Medications (last 90 days) No data to display Anxiety/Depression screening Recommendation: no further intervention at this time Cognitive screening Cognitive screening reviewed and No further action needed (score 3-5). Functional Observation Was the patient's Timed Up AND Go test unsteady or >= 12 seconds? No Advance Care Planning Patient did not wish or was not able to name a surrogate decision maker or provide an advance care plan Measurements BP 127/72 Pulse 67 Ht 169 cm (5' 6.54) Wt 63.8 kg (140 lb 9.6 oz) SpO2 100% BMI 22.33 kg/m? Vision Screening: Follows with optometry/ophthalmology Assessment/Plan Medicare annual wellness visit, subsequent (Z00.00) - Counseled on healthy diet and regular exercise - Fall avoidance information provided - Personalized prevention plan provided Reason for Visit Leo Angelo is a 79 year oldmale who presents here Patient presents with: Physical: Dizziness, fell when got out of chair at home Health Maintenance Pneumococcal Vaccine: 50+(2 of 2 - PCV) RSV Vaccine(1 - 1-dose 75+ series) Shingrix Vaccine(3 of 3) Influenza Vaccine(1) Covid-19 Vaccine(4 - 2023- season) Advance Directive Discussion HPI Patient notes he has been dizzy last week when getting up from a sitting position. He stood for a little bit and got better, He drinks 24 ounces of coffee, 16 ounces of water a little diet sprite on and off. He is on procardia. HTN: BP controlled today. Checks BP at home. Compliant with medications. Denies any chest pain, palpitations, SOB, swelling in the feet. Careful with diet to avoid salt, trying to eat more fruits and vegetables, exercises regularly HPL: Reviewed test results with patient , takes medications regularly , does not report side effects. Conscious to avoid red meats, full fat dairy and its by products. Exercising 3 to 5 times a week. He has a AAA which Is being followed up Was anemic last visit, does not have black colored stools No problem-specific Assessment AND Plan notes found for this encounter. PAST MEDICAL HISTORY Diagnosis Date AAA (abdominal aortic aneurysm) (HCC) 02/12/2023 4.8cm Bladder mass for cysto Chest pain Chronic bronchitis (HCC) Constipation Degeneration of lumbar or lumbosacral intervertebral disc 08/14/2007 Chronic off and on, Has been to Diverticulosis of colon (without mention of hemorrhage) GERD (gastroesophageal reflux disease) Internal hemorrhoids without mention of complication Other psoriasis left forearm; started out with abrasion and has never resolved (1999) Sciatica Right Thoracic aortic aneurysm without rupture (HCC) 4.8cm as of 10/03/17 Tobacco use disorder 08/14/2007 10 cigg/day Unspecified Asthma 01/26/2009 PAST SURGICAL HISTORY Procedure Laterality Date ANESTHESIA OPEN TOTAL HIP ARTHROPLASTY 12/2011 Right hip ARTHRP ACETBLR/PROX FEM PROSTC AGRFT/ALGRFT 12/18 Dr Trujillo COLONOSCOPY FLX DX W/COLLJ SPEC WHEN PFRMD 04/16/12 Colonoscopy repeat 10 years PAST SURGICAL HISTORY OF Removal of bursa sac of left elbow PAST SURGICAL HISTORY OF 05/20 Cataract surgery left TONSILLECTOMY PRIMARY/SECONDARY Tonsillectomy FAMILY HISTORY Problem Relation Age of Onset other (alzheimers) Mother COPD Father None Sister Aneurysm No Family History Social History Tobacco Use Smoking status: Every Day Current packs/day: 0.50 Average packs/day: 0.5 packs/day for 61.1 years (30.6 ttl pk-yrs) Types: Cigarettes Start date: 06/09/1963 Smokeless tobacco: Never (more content not included)... [facility] LEO ANGELO ([id number]) 1945 M Date Time Provider Department 07/20/24 SERA CASTILLO INTWS During your visit today, we recorded the following information about you: Elen Shukla LPN 07/20/2024 3:54 PM Signed Please review consult for geriatric evaluation. Order pended. Please schedule for appointment in September 2024. Thank you. Elen Shukla LPN July 20, 2024 3:53 PM Richelle Bennett 07/22/2024 4:52 PM Signed Spoke with patient's and scheduled. Richelle Bennett Allergies As of Date: 07/20/2024 Noted Allergy Reaction SEASONAL ALLERGIES 11/30/2008 Date Reviewed: 07/20/2024 Reviewed by: Elen Shukla LPN - Fully Assessed Reason for Visit: Orders [681] Cmt: Geriatric consult Primary Visit Diagnosis:Memory impairment [R41.3] Order(s):CONSULT TO GERIATRICS [9012] Order #: [id number]: 1 FUTURE Prescriptions as of 07/22/2024 - atorvastatin (LIPITOR) 40 mg tablet Take 1 tablet by mouth once daily. - omeprazole (PRILOSEC) 40 mg capsule Take 1 capsule by mouth once daily. - cyanocobalamin (VITAMIN B-12) 1,000 mcg tab Take 1,000 mcg by mouth once daily. - ramipril (ALTACE) 10 mg capsule Take 1 capsule by mouth once daily. - NIFEdipine ER (PROCARDIA XL) 60 mg 24 hr tablet Take 1 tablet by mouth once daily. - OTC PRODUCT Prevagen daily - aspirin, enteric coated (ASPIRIN, ENTERIC COATED) 81 mg EC tablet Take 1 tablet by mouth once daily. Meds Comments as of 06/24/2014: Pt. States he doesn't have med list and is unsure of meds because his prepares them for him. Problem List As Of Date 07/20/2024 Noted Resolved LUMBAGO [M54.50] 08/14/2007 Tobacco use disorder [F17.200] 08/14/2007 DISEASES OF NAIL NEC [L60.8] 09/29/2007 SEBORRHEIC KERATOSIS NOS [L82.1] 09/29/2007 Other Psoriasis [L40.8] 09/29/2007 07/21/2009 SOLAR LENGINES///DYSCHROMIA OTHER [L81.9] 09/29/2007 NEVUS ///BENIGN SALOME SKIN TRUNK [D23.5] 09/29/2007 ACTINIC DAMAGE//CHR SOLAR SKIN DAMAGE NOS [L57.*09/29/2007 DERMATOPHYTOSIS OF NAIL [B35.1] 09/29/2007 Unspecified Asthma [J45.909] 01/26/2009 Seborrheic Dermatitis: Central face [L21.9] 07/21/2009 07/21/2009 Melanocytic Nevus of Face [D22.30] 07/21/2009 Melanocytic Nevus of Trunk [D22.5] 07/21/2009 Solar Lentigo [L81.4] 07/21/2009 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] 07/21/2009 Actinic Damage///Sun-Damaged Skin [L57.8] 07/21/2009 Seborrheic Dermatitis: Central Face [L21.8] 07/21/2009 Other Psoriasis: Sebopsoriasis Central face [L4*07/21/2009 Hip arthritis [M16.10] 09/02/2011 Hypertension [I10] 02/21/2012 Elevated LFTs [R79.89] 02/28/2012 Anxiety [F41.9] 02/28/2012 Alcohol dependence (HCC) [F10.20] 02/28/2012 09/08/2018 Chronic bronchitis (HCC) [J42] 09/08/2018 Hyponatremia [E87.1] 08/24/2013 Vitamin D deficiency [E55.9] 08/24/2013 Aneurysm of ascending aorta (HCC) [I71.21] 01/07/2014 Dysthymia [F34.1] 09/29/2014 Prothrombin gene mutation (HCC) [D68.52] 08/20/2018 Pulmonary embolus (HCC) [I26.99] 08/20/2018 AAA (abdominal aortic aneurysm) without rupture*01/08/2022 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] 08/14/2023 Encounter Status:Closed by RICHELLE BENNETT on 07/22/24 Normal [facility] Comprehensive metabolic 2000 panelon 07-20-2024 Albumin [Mass/Vol] 4.2 g/dL Normal 3.9-4.9 [facility] Comment on above: Order Comment: Speci men Type: BLOOD SPECIMENOrdering Facility: [facility] Address: [address] [place] [address] Performed By: #### 2 4323-8 ####[facility] LABCLIA [id number] [place] [address] [place] ALP [Catalytic activity/Vol] 88 U/L Normal 38-113 [facility] Comment on above: Order Comment: Speci men Type: BLOOD SPECIMENOrdering Facility: [facility] Address: [address] [place] [address] Performed By: #### 2 4323-8 ####[facility] LABCLIA [id number] [place] [address] [place] ALT [Catalytic activity/Vol] 11 U/L Normal 10-54 [facility] Comment on above: Order Comment: Speci men Type: BLOOD SPECIMENOrdering Facility: [facility] Address: [address] [place] [address] Performed By: #### 2 4323-8 ####[facility] LABCLIA [id number] [place] [address] [place] Anion gap [Moles/Vol] 8 mmol/L Normal 8-15 [facility] Comment on above: Order Comment: Speci men Type: BLOOD SPECIMENOrdering Facility: [facility] Address: [address] [place] [address] Performed By: #### 2 4323-8 ####[facility] LABCLIA [id number] [place] [address] [place] AST [Catalytic activity/Vol] 16 U/L Normal 14-40 [facility] Comment on above: Order Comment: Speci men Type: BLOOD SPECIMENOrdering Facility: [facility] Address: [address] [place] [address] Performed By: #### 2 4323-8 ####[facility] LABCLIA [id number] [place] [address] [place] Bilirubin [Mass/Vol] 0.4 mg/dL Normal 0.2-1.3 [facility] Comment on above: Order Comment: Speci men Type: BLOOD SPECIMENOrdering Facility: [facility] Address: [address] [place] [address] Performed By: #### 2 4323-8 ####[facility] LABCLIA [id number] [place] [address] [place] Calcium [Mass/Vol] 9.3 mg/dL Normal 8.5-10.2 [facility] Comment on above: Order Comment: Speci men Type: BLOOD SPECIMENOrdering Facility: [facility] Address: [address] [place] [address] Performed By: #### 2 4323-8 ####[facility] LABCLIA [id number] [place] [address] [place] Chloride [Moles/Vol] 105 mmol/L Normal 98-107 [facility] Comment on above: Order Comment: Speci men Type: BLOOD SPECIMENOrdering Facility: [facility] Address: [address] [place], [place] [id number] Performed By: #### 2 4323-8 ####[facility] LABCLIA [id number] [place] [address] [place] CO2 [Moles/Vol] 29 mmol/L Normal 22-30 [facility] Comment on above: Order Comment: Speci men Type: BLOOD SPECIMENOrdering Facility: [facility] Address: [address] [place] [address] Performed By: #### 2 4323-8 ####[facility] LABCLIA [id number] [place] [address] [place] Creatinine [Mass/Vol] 0.82 mg/dL Normal 0.73-1.22 [facility] Comment on above: Order Comment: Speci men Type: BLOOD SPECIMENOrdering Facility: [facility] Address: [address] [place] [address] Performed By: #### 2 4323-8 ####[facility] LABCLIA [id number] [place] [address] [place] [facility] Creatinine and Glomerular filtration rate.predicted panel (S/P/Bld) 89 mL/min/1.73m??? Normal >=60 [facility] Comment on above: Order Comment: Speci men Type: BLOOD SPECIMENOrdering Facility: [facility] Address: [address] [place] [address] Result Comment: Yane mated Glomerular Filtration Rate (eGFR) is calculated using the 2020 CKD-EPI creatinine equation. This equation utilizes serum creatinine, sex, and age as parameters. The creatinine assay has traceable calibration to isotope dilution-mass spectrometry. Refer to KDIGO guidelines for clinical interpretation. In patients with unstable renal function, e.g. those with acute kidney injury, the eGFR may not accurately reflect actual GFR. Performed By: #### 2 4323-8 ####[facility] LABCLIA [id number] [place] [address] [place] Glucose [Mass/Vol] 84 mg/dL Normal 74-99 [facility] Comment on above: Order Comment: Speci men Type: BLOOD SPECIMENOrdering Facility: [facility] Address: [address] [place] [address] Result Comment: The [place] Diabetes Association (ADA) provides guidance for cutoff values for fasting glucose and random glucose. The ADA defines fasting as no caloric intake for at least 8 hours. Fasting plasma glucose results between 100 to 125 mg/dL indicate increased risk for diabetes (prediabetes). Fasting plasma glucose results greater than or equal to 126 mg/dL meet the criteria for diagnosis of diabetes. In the absence of unequivocal hyperglycemia, results should be confirmed by repeat testing. In a patient with classic symptoms of hyperglycemia or hyperglycemic crisis, random plasma glucose results greater than or equal to 200 mg/dL meet the criteria for diagnosis of diabetes. Reference: Standards of Medical Care in Diabetes 2016, [place] [employer]. Diabetes Care. 2016.39(Suppl 1). Performed By: #### 2 4323-8 ####[facility] LABCLIA [id number] [place] [address] [place] Potassium [Moles/Vol] 4.7 mmol/L Normal 3.7-5.1 [facility] Comment on above: Order Comment: Speci men Type: BLOOD SPECIMENOrdering Facility: [facility] Address: [address] [place] [address] Performed By: #### 2 4323-8 ####[facility] LABCLIA [id number] [place] [address] [place] Protein [Mass/Vol] 6.5 g/dL Normal 6.3-8.0 [facility] Comment on above: Order Comment: Speci men Type: BLOOD SPECIMENOrdering Facility: [facility] Address: [address] [place] [address] Performed By: #### 2 4323-8 ####[facility] LABCLIA [id number] [place] [address] [place] Sodium [Moles/Vol] 142 mmol/L Normal 136-144 [facility] Comment on above: Order Comment: Speci men Type: BLOOD SPECIMENOrdering Facility: [facility] Address: [address] [place] [address] Performed By: #### 2 4323-8 ####[facility] LABCLIA [id number] [place] [address] [place] Urea nitrogen [Mass/Vol] 27 mg/dL High 03-02 [facility] Comment on above: Order Comment: Speci men Type: BLOOD SPECIMENOrdering Facility: [facility] Address: [address] [place] [address] Performed By: #### 2 4323-8 ####[facility] LABCLIA [id number] [place] [address] [place] CNPNon 02-24-2024 CNPN Telephone ([facility]) LEO ANGELO ([id number]) 1945 M Date Time Provider Department 02/24/24 ENZO NELSON [facility] During your visit today, we recorded the following information about you: Ángel Morris RN 02/24/2024 11:18 AM Signed 12 month follow up from 02/18/24. Patient needs appointment with Dr. Nelson, CTA Chest GATED and Echo. Recall in Epic. Ángel Morris RN Allergies As of Date: 02/24/2024 Noted Allergy Reaction SEASONAL ALLERGIES 11/30/2008 Date Reviewed: 02/18/2024 Reviewed by: Marti Lin MA - Fully Assessed Reason for Visit: Follow Up [171] Primary Visit Diagnosis:Disorder of artery or arteriole (HCC) [I77.9] Other Visit Diagnosis:Chest pain, unspecified [R07.9] Order(s):CTA CHEST (GATED) W IVCON [1238325] Order #: [id number] FUTURE ECHO [571800] Order #: [id number]: 1 FUTURE Prescriptions as of 02/24/2024 - omeprazole (PRILOSEC) 40 mg capsule Take 1 capsule by mouth once daily. - cyanocobalamin (VITAMIN B-12) 1,000 mcg tab Take 1,000 mcg by mouth once daily. - atorvastatin (LIPITOR) 40 mg tablet Take 1 tablet by mouth once daily. - ramipril (ALTACE) 10 mg capsule Take 1 capsule by mouth once daily. - NIFEdipine ER (PROCARDIA XL) 60 mg 24 hr tablet Take 1 tablet by mouth once daily. - OTC PRODUCT Prevagen daily - aspirin, enteric coated (ASPIRIN, ENTERIC COATED) 81 mg EC tablet Take 1 tablet by mouth once daily. Meds Comments as of 06/24/2014: Pt. States he doesn't have med list and is unsure of meds because his prepares them for him. Problem List As Of Date 02/24/2024 Noted Resolved LUMBAGO [M54.50] 08/14/2007 Tobacco use disorder [F17.200] 08/14/2007 DISEASES OF NAIL NEC [L60.8] 09/29/2007 SEBORRHEIC KERATOSIS NOS [L82.1] 09/29/2007 Other Psoriasis [L40.8] 09/29/2007 07/21/2009 SOLAR LENGINES///DYSCHROMIA OTHER [L81.9] 09/29/2007 NEVUS ///BENIGN SALOME SKIN TRUNK [D23.5] 09/29/2007 ACTINIC DAMAGE//CHR SOLAR SKIN DAMAGE NOS [L57.*09/29/2007 DERMATOPHYTOSIS OF NAIL [B35.1] 09/29/2007 Unspecified Asthma [J45.909] 01/26/2009 Seborrheic Dermatitis: Central face [L21.9] 07/21/2009 07/21/2009 Melanocytic Nevus of Face [D22.30] 07/21/2009 Melanocytic Nevus of Trunk [D22.5] 07/21/2009 Solar Lentigo [L81.4] 07/21/2009 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] 07/21/2009 Actinic Damage///Sun-Damaged Skin [L57.8] 07/21/2009 Seborrheic Dermatitis: Central Face [L21.8] 07/21/2009 Other Psoriasis: Sebopsoriasis Central face [L4*07/21/2009 Hip arthritis [M16.10] 09/02/2011 Hypertension [I10] 02/21/2012 Elevated LFTs [R79.89] 02/28/2012 Anxiety [F41.9] 02/28/2012 Alcohol dependence (HCC) [F10.20] 02/28/2012 09/08/2018 Chronic bronchitis (HCC) [J42] 09/08/2018 Hyponatremia [E87.1] 08/24/2013 Vitamin D deficiency [E55.9] 08/24/2013 Aneurysm of ascending aorta (HCC) [I71.21] 01/07/2014 Dysthymia [F34.1] 09/29/2014 Prothrombin gene mutation (HCC) [D68.52] 08/20/2018 Pulmonary embolus (HCC) [I26.99] 08/20/2018 AAA (abdominal aortic aneurysm) without rupture*01/08/2022 Moderate episode of recurrent major depressive *06/10/2023 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 Angelo returns, now 12+ months following the last assessment of his ascending Aortic Aneurysm. The patient is asymptomatic. The CT scan was reviewed and reveals a maximum aortic diameter of 52 mm in the area of Ascending. There is no change. The Echocardiogram from 06/12/22 reveals normal ventricular function and well functioning valves. Impression: The patient is doing well after the last visit. Plan: He will return to see me in 12 months The following studies will be necessary: - CT gated thoracic aorta with contrast Enzo Nelson MD Referring Provider: ASHLEIGH CANDELARIO [[id number]] Allergies As of Date: 02/18/2024 Noted Allergy Reaction SEASONAL ALLERGIES 11/30/2008 Date Reviewed: 02/18/2024 Reviewed by: Marti Lin MA - Fully Assessed Reason for Visit: Established Patient [175] Primary Visit Diagnosis:Aneurysm of ascending aorta without rupture (HCC) [I71.21] Prescriptions as of 02/18/2024 - omeprazole (PRILOSEC) 40 mg capsule Take 1 capsule by mouth once daily. - cyanocobalamin (VITAMIN B-12) 1,000 mcg tab Take 1,000 mcg by mouth once daily. - atorvastatin (LIPITOR) 40 mg tablet Take 1 tablet by mouth once daily. - ramipril (ALTACE) 10 mg capsule Take 1 capsule by mouth once daily. - NIFEdipine ER (PROCARDIA XL) 60 mg 24 hr tablet Take 1 tablet by mouth once daily. - OTC PRODUCT Prevagen daily - aspirin, enteric coated (ASPIRIN, ENTERIC COATED) 81 mg EC tablet Take 1 tablet by mouth once daily. Meds Comments as of 06/24/2014: Pt. States he doesn't have med list and is unsure of meds because his prepares them for him. Problem List As Of Date 02/18/2024 Noted Resolved LUMBAGO [M54.50] 08/14/2007 Tobacco use disorder [F17.200] 08/14/2007 DISEASES OF NAIL NEC [L60.8] 09/29/2007 SEBORRHEIC KERATOSIS NOS [L82.1] 09/29/2007 Other Psoriasis [L40.8] 09/29/2007 07/21/2009 SOLAR LENGINES///DYSCHROMIA OTHER [L81.9] 09/29/2007 NEVUS ///BENIGN SALOME SKIN TRUNK [D23.5] 09/29/2007 ACTINIC DAMAGE//CHR SOLAR SKIN DAMAGE NOS [L57.*09/29/2007 DERMATOPHYTOSIS OF NAIL [B35.1] 09/29/2007 Unspecified Asthma [J45.909] 01/26/2009 Seborrheic Dermatitis: Central face [L21.9] 07/21/2009 07/21/2009 Melanocytic Nevus of Face [D22.30] 07/21/2009 Melanocytic Nevus of Trunk [D22.5] 07/21/2009 Solar Lentigo [L81.4] 07/21/2009 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] 07/21/2009 Actinic Damage///Sun-Damaged Skin [L57.8] 07/21/2009 Seborrheic Dermatitis: Central Face [L21.8] 07/21/2009 Other Psoriasis: Sebopsoriasis Central face [L4*07/21/2009 Hip arthritis [M16.10] 09/02/2011 Hypertension [I10] 02/21/2012 Elevated LFTs [R79.89] 02/28/2012 Anxiety [F41.9] 02/28/2012 Alcohol dependence (HCC) [F10.20] 02/28/2012 09/08/2018 Chronic bronchitis (HCC) [J42] 09/08/2018 Hyponatremia [E87.1] 08/24/2013 Vitamin D deficiency [E55.9] 08/24/2013 Aneurysm of ascending aorta (HCC) [I71.21] 01/07/2014 Dysthymia [F34.1] 09/29/2014 Prothrombin gene mutation (HCC) [D68.52] 08/20/2018 Pulmonary embolus (HCC) [I26.99] 08/20/2018 AAA (abdominal aortic aneurysm) without rupture*01/08/2022 Moderate episode of recurrent major depressive *06/10/2023 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] 08/14/2023 Encounter Status:Closed by ENZO NELSON on 02/18/24 Normal [facility] CNOV Office Visit (VASSMN ) LEO ANGELO ([id number]) 1945 M Date Time Provider Department 02/18/24 12:30 PM ASHLEIGH CANDELARIO During your visit today, we recorded the following information about you: Pulse Blood pressure 71/minute 109/61 Ashleigh Candelario MD 02/18/2024 2:40 PM Signed [facility] [place] DEPARTMENT OF VASCULAR SURGERY OUTPATIENT VISIT DATE February 18, 2024 OUTPATIENT VISIT TYPE ESTABLISHED SERVICE DATE: 02/18/2024 SERVICE TIME: 12:53 PM PRIMARY CARE PHYSICIAN: Sera Castillo MD HISTORY OF PRESENT ILLNESS: Mr. Angelo is a 79 year old male who presents today for a vascular surgery follow-up visit AAA. Last seen in 08/2023. Mr. Angelo is a 78 year old male w/ PMHx of HTN, AAA, ascending AA (51mm 12/2022), PE and tobacco smoking (half a pack /day). He presents today for a vascular surgery follow-up visit for AAA. Patient has been doing well. He denies abdominal, chest or back pain. Peripheral pulses are palpable b/l. DUS today did not show any significant change in his infrarenal AAA (4.91 vs 4.86 in 08/2023 vs. 4.6 in 08/2022). PAST MEDICAL HISTORY 02/12/2023: AAA (abdominal aortic aneurysm) (HCC) Comment: 4.8cm No date: Bladder mass Comment: for cysto No date: Chest pain No date: Chronic bronchitis (HCC) No date: Constipation 08/14/2007: Degeneration of lumbar or lumbosacral intervertebral disc Comment: Chronic off and on, Has been to No date: Diverticulosis of colon (without mention of hemorrhage) No date: GERD (gastroesophageal reflux disease) No date: Internal hemorrhoids without mention of complication No date: Other psoriasis Comment: left forearm; started out with abrasion and has never resolved (1999) No date: Sciatica Comment: Right No date: Thoracic aortic aneurysm without rupture (HCC) Comment: 4.8cm as of 10/03/17 08/14/2007: Tobacco use disorder Comment: 10 cigg/day 01/26/2009: Unspecified Asthma PAST SURGICAL HISTORY 12/2011: ANESTHESIA OPEN TOTAL HIP ARTHROPLASTY Comment: Right hip 12/18: ARTHRP ACETBLR/PROX FEM PROSTC AGRFT/ALGRFT Comment: Dr Trujillo 04/16/12: COLONOSCOPY FLX DX W/COLLJ SPEC WHEN PFRMD Comment: Colonoscopy repeat 10 years No date: PAST SURGICAL HISTORY OF Comment: Removal of bursa sac of left elbow 05/20: PAST SURGICAL HISTORY OF Comment: Cataract surgery left As child: TONSILLECTOMY PRIMARY/SECONDARY Comment: Tonsillectomy SOCIAL HISTORY Social History Tobacco Use Smoking status: Every Day Current packs/day: 0.50 Average packs/day: 0.5 packs/day for 60.7 years (30.3 ttl pk-yrs) Types: Cigarettes Start date: [birth year]09/1964 Smokeless tobacco: Never Tobacco comments: varies day to day--now 0.5PPD or less, usually less Vaping Use Vaping status: Never Used Substance Use Topics Alcohol use: No Alcohol/week: 12.0 standard drinks of alcohol Types: 12 Cans of Beer (12oz) per week Comment: Was discussed with Dr. Rob at pre-op eval 11/19/11 Drug use: No MEDICATIONS: omeprazole (PRILOSEC) 40 mg capsule Take 1 capsule by mouth once daily. atorvastatin (LIPITOR) 40 mg tablet Take 1 tablet by mouth once daily. ramipril (ALTACE) 10 mg capsule Take 1 capsule by mouth once daily. NIFEdipine ER (PROCARDIA XL) 60 mg 24 hr tablet Take 1 tablet by mouth once daily. OTC PRODUCT Prevagen daily aspirin, enteric coated (ASPIRIN, ENTERIC COATED) 81 mg EC tablet Take 1 tablet by mouth once daily. cyanocobalamin (VITAMIN B-12) 1,000 mcg tab Take 1,000 mcg by mouth once daily. ALLERGIES: ALLERGIES Allergen Reactions Seasonal Allergies PHYSICAL EXAM: BP 109/61 Pulse 71 General: Alert and oriented x3 Integumentary: Normal color, no rash, no lesions. HEENT: No carotid bruits Cardiovascular: Normal S1 AND S2, no rubs, murmurs or gallops. No JVD., Pulse regular. Lungs: Wheezes Abdomen: Pulsatile Mass Extremities: No deformity, no edema or tenderness, no joint swelling or clubbing. Neurological: Normal cognition and motor skills. Vascular: Carotid Exam: no thrills no bruits Abdominal Exam: palpable pulsatile mass Carotid Pulse Right: Normal - Left: Normal Brachial Pulse Right: Normal - Left: Normal Radial Pulse Right: Normal - Left: Normal Femoral Pulse Right: Normal - Left: Normal Popliteal Pulse Right: Normal - Left: Normal Posterior Tibial Right: Normal - Left: Normal Dorsalis Pedal Right: Normal - Left: Normal Diagnostic tests reviewed for today's visit: Most recent labs Most recent imaging IMPRESSION: Mr. Angelo is a 79 year old male with 4.91 infrarenal AAA on US today. Asymptomatic. Continues to smoke. Counseled on smoking cessation. PLAN and RECOMMENDATIONS: - 1 y f/u with Mikey Alexander PGY-1 Vascular Surgery On-Call pager: [phone] 02/18/2024 [facility] STAFF PHYSICIAN NOTE OF PERSONAL INVOLVEMENT IN CARE Patient is seen (more content not included)... Normal [facility] CREATININE, BLOOD (POC)on Creatinine [Mass/Vol] 0.80 mg/dL 0.7 - 1.4 mg/dL [facility] eGFR (POCT) mL/min/1.[address] [facility] Location:Radiology [facility], [address] [place] [address] POINT OF CARE [facility] CTA CHEST (GATED) W IVCONon 02-18-2024 CTA CHEST (GATED) W IVCON * * *Final Report* * * DATE OF EXAM: Feb 18 2024 12:26PM JQC 0125 - CTA CHEST (GATED) W IVCON / PROCEDURE REASON: Disorder of artery or arteriole (HCC) * * * * Physician Interpretation * * * * CTA Aorta chest Direct Image Comparison: CT chest dated 12/13/2022 HISTORY: 79 years old Male with h/o suspected aortic disease Evaluation for interval change. There is request to define thoracic and aortic anatomy TECHNIQUE: SCANNER: Multi-detector scanner PROTOCOL: Prospectively triggered helical high-pitch acquisitions (triggered Flash-mode) was performed following the intravenous administration of contrast material. Scan Range: thoracic inlet to the diaphragm CT Dose-Length Product (DLP): 200 mGy*cm CT Dose Reduction Employed: Automated exposure control (AEC) CONTRAST: IV administration of 90 ml Omnipaque 350 Scan acquisition: uncomplicated Macro Version: MQ:[id number]_5 For optimization of anatomic evaluation, advanced 3-D off-line postprocessing was performed on a dedicated workstation by the interpreting physician. STUDY LIMITATIONS: None.. RESULT: LINES, TUBES and DEVICES: None CHEST: Chest wall anatomy: unremarkable. LUNGS: unremarkable. MEDIASTINUM: unremarkable. PERICARDIUM: unremarkable CENTRAL PULMONARY ARTERY: normal dimensions. Assessment is limited due to limited contrast enhancement. CARDIAC CHAMBERS: LEFT VENTRICLE: normal size. RIGHT VENTRICLE: normal size Left atrium: normal size. ALEJANDRA: normal Right atrium: normal size CENTRAL VENOUS and PULMONARY VENOUS RETURN: normal. Coronary Sinus: normal size MITRAL VALVE: assessment is limited in the current study - no leaflet calcification. No annular calcification TRICUSPID and PULMONIC VALVE: appear unremarkable. CORONARY ANATOMY: normal origin of the coronary arteries. Severe calcified atherosclerotic changes of the coronary arteries. However, the current study is not optimized for coronary assessment. AORTIC VALVE: appears trileaflet. Mild calcification at the commissures. AORTA: Pathology: No acute aortic pathology. Intervention: None Complications: n/a Aortic Size: Dilation aortic root and ascending aorta. STJ: maintained. Moderate calcification. Wall Changes: Moderate partially calcified wall changes ascending aorta. Arch Branch Vessels: Common origin of the innominate and left carotid artery. Mild partially calcified wall changes. AORTIC DIMENSIONS: AORTIC ROOT: 4.3 cm measured [id number] Area: 12.2 cm2 mid ASCENDING THORACIC AORTA: 5.3 x 5.1 cm Area: 20.8 cm2 mid AORTIC ARCH: 3.2 cm mid DESCENDING THORACIC AORTA: 3.5 cm limited upper ABDOMEN: unremarkable BONES and SOFT TISSUES: unremarkable, within limitations of the current study Compressed Gas Tester (topogram) images: No additional findings. IMPRESSION: Stable dilation of the aortic root at 4.3 cm and aneurysmal dilation of the mid-ascending aorta (5.3 cm). Moderate calcifications are again noted throughout the thoracic aorta. Hand Ii Blocker: NAFISA Transcribe Date/Time: Feb 18 2024 12:59P Dictated by : LESLEY MILLARD, This examination was interpreted and the report reviewed and electronically signed by: LESLEY MILLARD, on Feb 18 2024 1:09PM EST [id number] Normal [facility] CTA Chest vessels W contrast Elenita 02-18-2024 IMPRESSION: Stable dilation of the aortic root at 4.3 cm and aneurysmal dilation of the mid-ascending aorta (5.3 cm). Moderate calcifications are again noted throughout the thoracic aorta. Hand Ii Blocker: NAFISA Transcribe Date/Time: Feb 18 2024 12:59P Dictated by : LESLEY MILLARD, This examination was interpreted and the report reviewed and electronically signed by: LESLEY MILLARD, on Feb 18 2024 1:09PM [facility] DIVISION OF RADIOLOGY * * *Final Report* * * DATE OF EXAM: Feb 18 2024 12:26PM JQC 0125 - CTA CHEST (GATED) W IVCON / PROCEDURE REASON: Disorder of artery or arteriole (HCC) * * * * Physician Interpretation * * * * CTA Aorta chest Direct Image Comparison: CT chest dated 12/13/2022 HISTORY: 79 years old Male with h/o suspected aortic disease Evaluation for interval change. There is request to define thoracic and aortic anatomy TECHNIQUE: SCANNER: Multi-detector scanner PROTOCOL: Prospectively triggered helical high-pitch acquisitions (triggered Flash-mode) was performed following the intravenous administration of contrast material. Scan Range: thoracic inlet to the diaphragm CT Dose-Length Product (DLP): 200 mGy*cm CT Dose Reduction Employed: Automated exposure control (AEC) CONTRAST: IV administration of 90 ml Omnipaque 350 Scan acquisition: uncomplicated Macro Version: [id number] For optimization of anatomic evaluation, advanced 3-D off-line postprocessing was performed on a dedicated workstation by the interpreting physician. STUDY LIMITATIONS: None.. RESULT: LINES, TUBES and DEVICES: None CHEST: Chest wall anatomy: unremarkable. LUNGS: unremarkable. MEDIASTINUM: unremarkable. PERICARDIUM: unremarkable CENTRAL PULMONARY ARTERY: normal dimensions. Assessment is limited due to limited contrast enhancement. CARDIAC CHAMBERS: LEFT VENTRICLE: normal size. RIGHT VENTRICLE: normal size Left atrium: normal size. ALEJANDRA: normal Right atrium: normal size CENTRAL VENOUS and PULMONARY VENOUS RETURN: normal. Coronary Sinus: normal size MITRAL VALVE: assessment is limited in the current study - no leaflet calcification. No annular calcification TRICUSPID and PULMONIC VALVE: appear unremarkable. CORONARY ANATOMY: normal origin of the coronary arteries. Severe calcified atherosclerotic changes of the coronary arteries. However, the current study is not optimized for coronary assessment. AORTIC VALVE: appears trileaflet. Mild calcification at the commissures. AORTA: Pathology: No acute aortic pathology. Intervention: None Complications: n/a Aortic Size: Dilation aortic root and ascending aorta. STJ: maintained. Moderate calcification. Wall Changes: Moderate partially calcified wall changes ascending aorta. Arch Branch Vessels: Common origin of the innominate and left carotid artery. Mild partially calcified wall changes. AORTIC DIMENSIONS: AORTIC ROOT: 4.3 cm measured [id number] Area: 12.2 cm2 mid ASCENDING THORACIC AORTA: 5.3 x 5.1 cm Area: 20.8 cm2 mid AORTIC ARCH: 3.2 cm mid DESCENDING THORACIC AORTA: 3.5 cm limited upper ABDOMEN: unremarkable BONES and SOFT TISSUES: unremarkable, within limitations of the current study Compressed Gas Tester (topogram) images: No additional findings. DIVISION OF RADIOLOGY Provider, [facility] - 02/18/2024 * * *Final Report* * * DATE OF EXAM: Feb 18 2024 12:26PM JQC 0125 - CTA CHEST (GATED) W IVCON / PROCEDURE REASON: Disorder of artery or arteriole (HCC) * * * * Physician Interpretation * * * * CTA Aorta chest Direct Image Comparison: CT chest dated 12/13/2022 HISTORY: 79 years old Male with h/o suspected aortic disease Evaluation for interval change. There is request to define thoracic and aortic anatomy TECHNIQUE: SCANNER: Multi-detector scanner PROTOCOL: Prospectively triggered helical high-pitch acquisitions (triggered Flash-mode) was performed following the intravenous administration of contrast material. Scan Range: thoracic inlet to the diaphragm CT Dose-Length Product (DLP): 200 mGy*cm CT Dose Reduction Employed: Automated exposure control (AEC) CONTRAST: IV administration of 90 ml Omnipaque 350 Scan acquisition: uncomplicated Macro Version: [id number] For optimization of anatomic evaluation, advanced 3-D off-line postprocessing was performed on a dedicated workstation by the interpreting physician. STUDY LIMITATIONS: None.. RESULT: LINES, TUBES and DEVICES: None CHEST: Chest wall anatomy: unremarkable. LUNGS: unremarkable. MEDIASTINUM: unremarkable. PERICARDIUM: unremarkable CENTRAL PULMONARY ARTERY: normal dimensions. Assessment is limited due to limited contrast enhancement. CARDIAC CHAMBERS: LEFT VENTRICLE: normal size. RIGHT VENTRICLE: normal size Left atrium: normal size. ALEJANDRA: normal Right atrium: normal size CENTRAL VENOUS and PULMONARY VENOUS RETURN: normal. Coronary Sinus: normal size MITRAL VALVE: assessment is limited in the current study - no leaflet calcification. No annular calcification TRICUSPID and PULMONIC VALVE: appear unremarkable. CORONARY ANATOMY: normal origin of the coronary arteries. Severe calcified atherosclerotic changes of the coronary arteries. However, the current study is not optimized for coronary assessment. AORTIC VALVE: appears trileaflet. Mild calcification at the commissures. AORTA: Pathology: No acute aortic pathology. Intervention: None Complications: n/a Aortic Size: Dilation aortic root and ascending aorta. STJ: maintained. Moderate calcification. Wall Changes: Moderate partially calcified wall changes ascending aorta. Arch Branch Vessels: Common origin of the innominate and left carotid artery. Mild partially calcified wall changes. AORTIC DIMENSIONS: AORTIC ROOT: 4.3 cm measured [id number] Area: 12.2 cm2 mid ASCENDING THORACIC AORTA: 5.3 x 5.1 cm Area: 20.8 cm2 mid AORTIC ARCH: 3.2 cm mid DESCENDING THORACIC AORTA: 3.5 cm limited upper ABDOMEN: unremarkable BONES and SOFT TISSUES: unremarkable, within limitations of the current study Compressed Gas Tester (topogram) images: No additional findings. IMPRESSION IMPRESSION: Stable dilation of the aortic root at 4.3 cm and aneurysmal dilation of the mid-ascending aorta (5.3 cm). Moderate calcifications are again noted throughout the thoracic aorta. Hand Ii Blocker: NAFISA Transcribe Date/Time: Feb 18 2024 12:59P Dictated by : LESLEY MILLARD, This examination was interpreted and the report reviewed and electronically signed by: LESLEY MILLARD, on Feb 18 2024 1:09PM EST [facility] Radiology Study observation (narrative) [facility] CTA Chest vessels W contrast IVOrdered By: Ccf Provider on 02-18-[address] [facility] US ABD AORTA COMPLETE VAS LA Bon 02-18-2024 US ABD AORTA COMPLETE VAS LAB Non-Invasive Vascular Laboratory [facility] F30 Abdominal Aorta Bilateral/Complete Date of service/time: 02/18/2024 10:39:28 AM Name: MR. LEO ANGELO Date of : 1945 Age: 79 years Gender: M Clinical Indication Abdominal aortic aneurysm. TECHNIQUE -------- An aortic duplex ultrasound examination was performed, including grayscale imaging and color Doppler and spectral Doppler examination of abdominal aorta as well as the below mentioned arteries. FINDINGS -------- AORTA Proximal: PSV: 38 cm/s. EDV: 0 cm/s. 3.07 cm x 3.13 cm At renal: PSV: 67 cm/s. EDV: 0 cm/s. 3.08 cm x 3.00 cm Mid: PSV: 72 cm/s. EDV: 0 cm/s. 4.91 cm x 4.86 cm Distal: PSV: 78 cm/s. EDV: 0 cm/s. 1.72 cm x 1.74 cm Heterogeneous, calcified and shadowing plaque in the abdominal aorta throughout. RIGHT VESSELS Common iliac origin: PSV: 115 cm/s. EDV: 0 cm/s. 1.30 cm x 1.34 cm Common iliac proximal: PSV: 95 cm/s. EDV: 0 cm/s. 1.12 cm x 1.12 cm Common iliac mid: PSV: 133 cm/s. EDV: 0 cm/s. 1.03 cm x 1.00 cm Common iliac distal: PSV: 158 cm/s. EDV: 0 cm/s. 0.96 cm x 0.92 cm Heterogeneous and calcified plaque in the common iliac artery throughout. LEFT VESSELS Common iliac origin: PSV: 111 cm/s. EDV: 0 cm/s. 1.04 cm x 1.04 cm Common iliac proximal: PSV: 96 cm/s. EDV: 0 cm/s. 1.24 cm x 1.22 cm Common iliac mid: PSV: 74 cm/s. EDV: 0 cm/s. 1.60 cm x 1.57 cm Common iliac distal: PSV: 145 cm/s. EDV: 0 cm/s. 1.22 cm x 1.24 cm Heterogeneous and calcified plaque in the common iliac artery throughout. IMPRESSION Compared to prior study of 08/13/2023, There is no significant change. AORTA Abdominal aortic aneurysm measuring 3.07 x 3.13 cm at proximal. Abdominal aortic aneurysm measuring 4.91 x 4.86 cm at mid. Mural thrombus noted. Aorta plaque noted without evidence of hemodynamically significant stenosis throughout. RIGHT VESSELS Common iliac artery patent without evidence of aneurysm throughout. Internal iliac artery not visualized . LEFT VESSELS Common iliac artery appears ectatic measuring 1.60 x 1.57 at mid. Common iliac artery plaque noted without evidence of hemodynamically significant stenosis throughout. Internal iliac artery not visualized . Technologist: Bonny Alfaro RVT Vandana Lopez RVT Ordering physician: ASHLEIGH CANDELARIO Interpreting physician: Zechariah Cancino DO, REJIT, RPVI Final CC [email or web address] Medical Image : [id number] See Link below for Image Normal [facility] CBC W Auto Differential pane l (Bld)on 09-10-2023 Basophils (Bld) [#/Vol] 0.09 10*3/uL <0.11 k/uL [facility] Basophils/100 WBC (Bld) 1.7 % [facility] Differential cell count method Nom (Bld) Auto [facility] Eosinophils (Bld) [#/Vol] 0.13 10*3/uL <0.46 k/uL [facility] Eosinophils/100 WBC (Bld) 2.5 % [facility] Erythrocyte distribution width (RBC) [Ratio] 13.5 % 11.5 - 15.0 % [facility] Hematocrit (Bld) [Volume fraction] 39.1 % 39.0 - 51.0 % [facility] Hemoglobin (Bld) [Mass/Vol] 12.6 g/dL Low 13.0 - 17.0 g/dL [facility] Immature granulocytes (Bld) [#/Vol] <0.10 k/uL [facility] Immature granulocytes/100 WBC (Bld) 0.2 % [facility] Lymphocytes (Bld) [#/Vol] 1.64 10*3/uL 1.00 - 4.00 k/uL [facility] Lymphocytes/100 WBC (Bld) 31.5 % [facility] MCH (RBC) [Entitic mass] 30.1 pg 26.0 - 34.[address] [facility] MCHC (RBC) [Mass/Vol] 32.2 g/dL 30.5 - 36.0 g/dL [facility] MCV (RBC) [Entitic vol] 93.5 fL 80.0 - 100.[address] [facility] Monocytes (Bld) [#/Vol] 0.50 10*3/uL <0.87 k/uL [facility] Monocytes/100 WBC (Bld) 9.6 % [facility] Neutrophils (Bld) [#/Vol] 2.83 10*3/uL 1.45 - 7.50 k/uL [facility] Neutrophils/100 WBC (Bld) 54.5 % [facility] Nucleated RBC (Bld) [#/Vol] <0.01 k/uL [facility] Nucleated RBC/100 WBC (Bld) [Ratio] 0.0 /[address] [facility] Platelet mean volume (Bld) [Entitic vol] 9.7 fL 9.0 - 12.[address] [facility] Platelets (Bld) [#/Vol] 308 10*3/uL 150 - 400 k/uL [facility] RBC (Bld) [#/Vol] 4.18 10*6/uL Low 4.20 - 6.0 0 m/uL [facility] WBC (Bld) [#/Vol] 5.20 10*3/uL 3.70 - 11.00 k/uL [facility] Comprehensive metabolic 2000 panelon 09-10-2023 Albumin [Mass/Vol] 4.1 g/dL 3.9 - 4.9 g/dL [facility] ALP [Catalytic activity/Vol] 96 U/L 38 - 113 U/L [facility] ALT [Catalytic activity/Vol] 11 U/L 10 - 54 U/L [facility] Anion gap [Moles/Vol] 9 mmol/L 9 - 18 mmol/L [facility] AST [Catalytic activity/Vol] 17 U/L 14 - 40 U/L [facility] Bilirubin [Mass/Vol] 0.3 mg/dL 0.2 - 1 .3 mg/dL [facility] Calcium [Mass/Vol] 9.3 mg/dL 8.5 - 10. 2 mg/dL [facility] Chloride [Moles/Vol] 105 mmol/L 97 - 10 5 mmol/L [facility] CO2 [Moles/Vol] 27 mmol/L 22 - 30 mmol/L [facility] Creatinine [Mass/Vol] 0.82 mg/dL 0.73 - 1.22 mg/dL [facility] Estimated Glomerular Filtration Rate 89 mL/min/1.73m >=60 mL/min/1.[address] [facility] Glucose [Mass/Vol] 107 mg/dL High 74 - 99 mg/dL [facility] Potassium [Moles/Vol] 5.3 mmol/L High 3.7 - 5.1 mmol/L [facility] Protein [Mass/Vol] 6.4 g/dL 6.3 - 8.0 g/dL [facility] Sodium [Moles/Vol] 141 mmol/L 136 - 144 mmol/L [facility] Urea nitrogen [Mass/Vol] 26 mg/dL High 9 - 24 mg/dL [facility] FERRITIN BLDon 09-10-2023 Ferritin [Mass/Vol] 30.3 ng/mL 30.3 - 565.7 ng/mL [facility] Iron and Iron binding capaci ty panelon 09-10-2023 Iron [Mass/Vol] 50 ug/dL 41 - 186 ug/dL [facility] Iron binding capacity [Mass/Vol] 332 ug/dL 232 - 386 ug/dL [facility] Iron/TIBC [Molar ratio] 15.1 % 15.0 - 57.0 % [facility] Lipid 1996 panelon 4 Cholesterol [Mass/Vol] 132 mg/dL <200 mg/dL [facility] Cholesterol in HDL [Mass/Vol] 50 mg/dL >39 mg/dL [facility] Cholesterol in LDL [Mass/Vol] 76 mg/dL <100 mg/dL [facility] Cholesterol in LDL/Cholesterol in HDL [Mass ratio] 1.52 {ratio} <2.[address] [facility] Cholesterol in VLDL [Mass/Vol] 6 mg/dL <30 mg/dL [facility] Cholesterol non HDL [Mass/Vol] 82 mg/dL <130 mg/dL [facility] Cholesterol.total/Chol esterol in HDL [Mass ratio] 2.64 {ratio} <5.[address] [facility] Fasting Time [address] [facility] Triglyceride [Mass/Vol] 31 mg/dL <150 mg/dL [facility] VITAMIN B12 BLOODon 09-10-19 24 Cobalamin (Vitamin B12) [Mass/Vol] 1121 pg/mL 232 - 1,245 pg/mL [facility] CBC W Auto Differential pane l (Bld)on 03-07-2023 Basophils (Bld) [#/Vol] 0.08 10*3/uL <0.11 k/uL [facility] Basophils/100 WBC (Bld) 1.4 % [facility] Differential cell count method Nom (Bld) Auto [facility] Eosinophils (Bld) [#/Vol] 0.14 10*3/uL <0.46 k/uL [facility] Eosinophils/100 WBC (Bld) 2.5 % [facility] Erythrocyte distribution width (RBC) [Ratio] 13.2 % 11.5 - 15.0 % [facility] Hematocrit (Bld) [Volume fraction] 40.4 % 39.0 - 51.0 % [facility] Hemoglobin (Bld) [Mass/Vol] 13.1 g/dL 13.0 - 17.0 g/dL [facility] Immature granulocytes (Bld) [#/Vol] <0.10 k/uL [facility] Immature granulocytes/100 WBC (Bld) 0.2 % [facility] Lymphocytes (Bld) [#/Vol] 1.27 10*3/uL 1.00 - 4.00 k/uL [facility] Lymphocytes/100 WBC (Bld) 22.7 % [facility] MCH (RBC) [Entitic mass] 31.0 pg 26.0 - 34.[address] [facility] MCHC (RBC) [Mass/Vol] 32.4 g/dL 30.5 - 36.0 g/dL [facility] MCV (RBC) [Entitic vol] 95.7 fL 80.0 - 100.[address] [facility] Monocytes (Bld) [#/Vol] 0.65 10*3/uL <0.87 k/uL [facility] Monocytes/100 WBC (Bld) 11.6 % [facility] Neutrophils (Bld) [#/Vol] 3.45 10*3/uL 1.45 - 7.50 k/uL [facility] Neutrophils/100 WBC (Bld) 61.6 % [facility] Nucleated RBC (Bld) [#/Vol] <0.01 k/uL [facility] Nucleated RBC/100 WBC (Bld) [Ratio] 0.0 /[address] [facility] Platelet mean volume (Bld) [Entitic vol] 10.0 fL 9.0 - 12.[address] [facility] Platelets (Bld) [#/Vol] 236 10*3/uL 150 - 400 k/uL [facility] RBC (Bld) [#/Vol] 4.22 10*6/uL 4.20 - 6.0 0 m/uL [facility] WBC (Bld) [#/Vol] 5.60 10*3/uL 3.70 - 11.00 k/uL [facility] FERRITIN BLDon 03-07-2023 Ferritin [Mass/Vol] 37.6 ng/mL 30.3 - 565.7 ng/mL [facility] HbA1c (Bld)on 03-07-2023 Average glucose Estimated from glycated hemoglobin (Bld) [Mass/Vol] 114 mg/dL [facility] HbA1c (d) [Mass fraction] 5.6 % 4.3 - 5.6 % [facility] Hepatic function 2000 panelo n 03-07-2023 Albumin [Mass/Vol] 4.2 g/dL 3.9 - 4.9 g/dL [facility] ALP [Catalytic activity/Vol] 98 U/L 38 - 113 U/L [facility] ALT [Catalytic activity/Vol] 13 U/L 10 - 54 U/L [facility] AST [Catalytic activity/Vol] 20 U/L 14 - 40 U/L [facility] Bilirubin [Mass/Vol] 0.2 mg/dL 0.2 - 1 .3 mg/dL [facility] Bilirubin.conjugated [Mass/Vol] <0.2 mg/dL [facility] Protein [Mass/Vol] 6.7 g/dL 6.3 - 8.0 g/dL [facility] Iron and Iron binding capaci ty panelon 03-07-2023 Iron [Mass/Vol] 55 ug/dL 41 - 186 ug/dL [facility] Iron binding capacity [Mass/Vol] 340 ug/dL 232 - 386 ug/dL [facility] Iron/TIBC [Molar ratio] 16.2 % 15.0 - 57.0 % [facility] Lipid 1996 panelon Cholesterol [Mass/Vol] 146 mg/dL <200 mg/dL [facility] Cholesterol in HDL [Mass/Vol] 60 mg/dL >39 mg/dL [facility] Cholesterol in LDL [Mass/Vol] 79 mg/dL <100 mg/dL [facility] Cholesterol in LDL/Cholesterol in HDL [Mass ratio] 1.32 {ratio} <2.[address] [facility] Cholesterol in VLDL [Mass/Vol] 7 mg/dL <30 mg/dL [facility] Cholesterol non HDL [Mass/Vol] 86 mg/dL <130 mg/dL [facility] Cholesterol.total/Chol esterol in HDL [Mass ratio] 2.43 {ratio} <5.[address] [facility] Fasting Time [address] [facility] Triglyceride [Mass/Vol] 34 mg/dL <150 mg/dL [facility] PSA/PROSTSPECAG SCRNon 03-07 Prostate specific Ag [Mass/Vol] 0.15 ng/mL <2.60 ng/mL [facility] Urinalysis complete panel (U )on 03-07-2023 Bilirubin Ql (U) Negative Negative [facility] Clarity (Unsp spec) Clear Clear [facility] Color (U) Yellow Yellow [facility] Epithelial cells LM.HPF (Urine sed) [#/Area] Few [facility] Glucose Test strip (U) [Mass/Vol] Negative Trace, Negative [facility] Hemoglobin Ql (U) 1+ Abnormal Negative, Trace [facility] Ketones Ql (U) Negative Trace, Negative [facility] Leukocyte esterase Test strip Ql (U) Negative Negative, 25 Antony/uL [facility] Nitrite Ql (U) Negative Negative [facility] pH (U) 6.0 [pH] 5.0 - 8.[address] [facility] Protein (U) [Mass/Vol] Trace Trace , Negative [facility] RBC LM.HPF (Urine sed) [#/Area] 11-25 /HPF Abnormal 0-3 /HPF [facility] Specific gravity (U) [Rel density] 1.027 1.005 - 1.[address] [facility] Urobilinogen Ql (U) Negative Negative [facility] WBC LM.HPF (Urine sed) [#/Area] 0-5 /HPF 0-5 /HPF [facility] VITAMIN B12 BLOODon 03-07-20 Cobalamin (Vitamin B12) [Mass/Vol] 316 pg/mL 232 - 1,245 pg/mL [facility] CREATININE, BLOOD (POC)on Creatinine [Mass/Vol] 1.00 mg/dL 0.7 - 1.4 mg/dL [facility] eGFR (POCT) [facility] CTA CHEST (GATED) W IVCONon 12-13-[address] [facility] US CHEST WALL/SOFT TISSUEon 09-12-[address] [facility] No Panel Informationon 01-[address] [facility] Vital Signs Date Time Vital Sign Value Performing Clinician José de jesus 10-19-2024 11:16-0400 Body temperature 98.6 [degF] Dr. Sera Castillo MD Work Phone: [facility] 10-19-2024 11:16-0400 Body weight 59.[address] Sera Castillo MD Work Phone: [facility] 10-19-2024 11:16-0400 Diastolic blood pressure 64 mm[Hg] Dr. Sera Castillo MD Work Phone: [facility] 10-19-2024 11:16-0400 Heart rate 67 /min Dr. Sera Castillo MD Work Phone: [facility] 10-19-2024 11:16-0400 Respiratory rate 16 /min Dr. Sera Castillo MD Work Phone: [facility] 10-19-2024 11:16-0400 SaO2% (BldA) [Mass fraction] 99 % Dr. Sera Castillo MD Work Phone: [facility] 10-19-2024 11:16-0400 Systolic blood pressure 110 mm[Hg] Dr. Sera Castillo MD Work Phone: [facility] 09-21-2024 08:49-0400 Body mass index (BMI) [Ratio] 20.7 kg/m2 Sera Castillo MD Work Phone: [facility] 09-21-2024 08:49-0400 Body weight 59.06 kg Sera Castillo MD [facility] [facility] 09-21-2024 08:49-0400 Diastolic blood pressure 68 mm[Hg] Sera Castillo MD Work Phone: [facility] 09-21-2024 08:49-0400 Heart rate 94 /min Sera Castillo MD Work Phone: [facility] 09-21-2024 08:49-0400 SaO2% (BldA) [Mass fraction] 98 % Sera Castillo MD Work Phone: [facility] 09-21-2024 08:49-0400 Systolic blood pressure 110 mm[Hg] Sera Castillo MD Work Phone: [facility] 09-13-2024 08:15-0400 Body height 170.[address] Sera Castillo MD Work Phone: [facility] 09-13-2024 08:15-0400 Body mass index (BMI) [Ratio] 20.7 kg/m2 Dr. Sera Castillo MD Work Phone: 2(753)739-319108 [place] [address] 09-13-2024 08:15-0400 Body temperature 98 [degF] Dr. Sera Castillo MD Work Phone: 1(749)053-428508 [place] [address] 09-13-2024 08:15-0400 Body weight 59.[address] Sera Castillo MD Work Phone: 5(971)594-727908 [place] [address] 09-13-2024 08:15-0400 Diastolic blood pressure 50 mm[Hg] Dr. Sera Castillo MD Work Phone: 0(028)349-254308 [place] [address] 09-13-2024 08:15-0400 Heart rate 87 /min Dr. Sera Castillo MD Work Phone: 8(257)416-179432 [place] [address] 09-13-2024 08:15-0400 Respiratory rate 15 /min Dr. Sera Castillo MD Work Phone: 5(774)365-094008 [place] [address] 09-13-2024 08:15-0400 SaO2% (BldA) [Mass fraction] 95 % Dr. Sera Castillo MD Work Phone: 6(931)260-736008 [place] [address] 09-13-2024 08:15-0400 Systolic blood pressure 120 mm[Hg] Dr. Sera Castillo MD Work Phone: 2(376)068-177908 [place] [address] 09-07-2024 15:47-0400 Body height 168.9 cm Sera Castillo MD Work Phone: [facility] 09-07-2024 15:47-0400 Body mass index (BMI) [Ratio] 20.67 kg/m2 Sera Castillo MD Work Phone: [facility] 09-07-2024 15:47-0400 Body weight 58.97 kg Sera Castillo MD Work Phone: [facility] 09-07-2024 15:47-0400 Diastolic blood pressure 71 mm[Hg] Sera Castillo MD Work Phone: [facility] 09-07-2024 15:47-0400 Heart rate 87 /min Sera Castillo MD Work Phone: [facility] 09-07-2024 15:47-0400 SaO2% (BldA) [Mass fraction] 96 % Sera Castillo MD Work Phone: [facility] 09-07-2024 15:47-0400 Systolic blood pressure 119 mm[Hg] Sera Castillo MD Work Phone: [facility] 08-31-2024 12:38-0400 Body mass index (BMI) [Ratio] 20.3 kg/m2 Dr. Sera Castillo MD Work Phone: [facility] 08-31-2024 09:42-0400 Body temperature 98.4 [degF] Dr. Sera Castillo MD Work Phone: 6(205)046-019532 [place] [address] 08-31-2024 09:42-0400 Diastolic blood pressure 57 mm[Hg] Dr. Sera Castillo MD Work Phone: [facility] 08-31-2024 09:42-0400 Heart rate 58 /min Dr. Sera Castillo MD Work Phone: [facility] 08-31-2024 09:42-0400 Respiratory rate 18 /min Dr. Sera Castillo MD Work Phone: [facility] 08-31-2024 09:42-0400 SaO2% (BldA) [Mass fraction] 94 % Dr. Sera Castillo MD Work Phone: 0(814)127-755708 [place] [address] 08-31-2024 09:42-0400 Systolic blood pressure 132 mm[Hg] Dr. Sera Castillo MD Work Phone: 2(838)683-080708 [place] [address] 08-25-2024 10:41-0400 Body height 170.[address] Sera Castillo MD Work Phone: 3(229)307-644608 [place] [address] 08-25-2024 10:41-0400 Body weight 58.[address] Sera Castillo MD Work Phone: 4(358)885-045508 [place] [address] 08-19-2024 22:00-0400 Inhaled oxygen concentration 21 % Dr. Sera Castillo MD Work Phone: 3(524)124-110308 [place] [address] 08-18-2024 14:37-0400 Body temperature 98.2 [degF] Dr. Sera Castillo MD Work Phone: 7(637)844-170308 [place] [address] 08-18-2024 14:37-0400 Diastolic blood pressure 80 mm[Hg] Dr. Sera Castillo MD Work Phone: 6(975)502-926408 [place] [address] 08-18-2024 14:37-0400 Heart rate 68 /min Dr. Sera Castillo MD Work Phone: 3(038)511-634208 [place] [address] 08-18-2024 14:37-0400 Respiratory rate 16 /min Dr. Sera Castillo MD Work Phone: 1(898)170-654308 [place] [address] 08-18-2024 14:37-0400 SaO2% (BldA) [Mass fraction] 98 % Dr. Sera Castillo MD Work Phone: 9(576)423-687908 [place] [address] 08-18-2024 14:37-0400 Systolic blood pressure 141 mm[Hg] Dr. Sera Castillo MD Work Phone: 1(917)588-546108 [place] [address] 08-18-2024 03:01-0400 Body mass index (BMI) [Ratio] 26 kg/m2 Dr. Sera Castillo MD Work Phone: 1(493)320-316708 [place] [address] 08-17-2024 13:48-0400 Body height 152.[address] Sera Castillo MD Work Phone: 5(943)427-510408 [place] [address] 08-17-2024 13:48-0400 Body weight 60.[address] Sera Castillo MD Work Phone: 9(902)325-190308 [place] [address] 08-17-2024 08:12-0400 SaO2% (BldA) [Mass fraction] 98 % Dr. Sera Castillo MD Work Phone: 8(022)355-061308 [place] [address] 08-17-2024 08:00-0400 Diastolic blood pressure 63 mm[Hg] Dr. Sera Castillo MD Work Phone: 6(956)686-461208 [place] [address] 08-17-2024 08:00-0400 Heart rate 63 /min Dr. Sera Castillo MD Work Phone: 9(313)745-621908 [place] [address] 08-17-2024 08:00-0400 Respiratory rate 19 /min Dr. Sera Castillo MD Work Phone: 7(942)632-225408 [place] [address] 08-17-2024 08:00-0400 Systolic blood pressure 125 mm[Hg] Dr. Sera Castillo MD Work Phone: 8(765)744-519508 [place] [address] 08-17-2024 06:05-0400 Body height 152.[address] Sera Castillo MD Work Phone: 8(928)538-418008 [place] [address] 08-17-2024 06:05-0400 Body mass index (BMI) [Ratio] 26.4 kg/m2 Dr. Sera Castillo MD Work Phone: 1(390)015-006108 [place] [address] 08-17-2024 06:05-0400 Body weight 61.[address] Sera Castillo MD Work Phone: 4(424)893-952808 [place] [address] 08-17-2024 05:56-0400 Body temperature 98 [degF] Dr. Sera Castillo MD Work Phone: 5(071)102-240508 [place] [address] 07-20-2024 16:03-0500 Diastolic blood pressure 61 mm[Hg] Sera Castillo MD Work Phone: 4(168)230-219259 [place] [address] 07-20-2024 16:03-0500 Systolic blood pressure 109 mm[Hg] Sera Castillo MD Work Phone: 0(112)505-666459 [place] [address] 07-20-2024 15:01-0500 Body height 169 cm Sera Castillo MD Work Phone: [facility] 07-20-2024 15:01-0500 Body mass index (BMI) [Ratio] 22.33 kg/m2 Sera Castillo MD Work Phone: [facility] 07-20-2024 15:01-0500 Body weight 63.78 kg Sera Castillo MD Work Phone: [facility] 07-20-2024 15:01-0500 SaO2% (BldA) [Mass fraction] 100 % Sera Castillo MD Work Phone: [facility] 02-18-2024 12:43-0400 Diastolic blood pressure 61 mm[Hg] Ashleigh Candelario MD Work Phone: [facility] 02-18-2024 12:43-0400 Heart rate 71 /min Ashleigh Candelario MD Work Phone: [facility] 02-18-2024 12:43-0400 Systolic blood pressure 109 mm[Hg] Ashleigh Candelario MD Work Phone: [facility] 09-10-2023 09:42-0400 Body temperature 97 [degF] Delia Juan RECRUITING CONSULTANT.COMMERCIAL FOOD INSTRUCTOR Work Phone: [facility] 09-10-2023 09:42-0400 Body weight 60.78 kg Delia Juan RECRUITING CONSULTANT.COMMERCIAL FOOD INSTRUCTOR Work Phone: [facility] 09-10-2023 09:42-0400 Diastolic blood pressure 70 mm[Hg] Delia Juan RECRUITING CONSULTANT.COMMERCIAL FOOD INSTRUCTOR Work Phone: [facility] 09-10-2023 09:42-0400 Heart rate 76 /min Delia Juan RECRUITING CONSULTANT.COMMERCIAL FOOD INSTRUCTOR Work Phone: [facility] 09-10-2023 09:42-0400 Respiratory rate 20 /min Delia Juan RECRUITING CONSULTANT.COMMERCIAL FOOD INSTRUCTOR Work Phone: [facility] 09-10-2023 09:42-0400 Systolic blood pressure 120 mm[Hg] Delia Juan RECRUITING CONSULTANT.COMMERCIAL FOOD INSTRUCTOR Work Phone: [facility] 08-13-2023 12:29-0500 Diastolic blood pressure 60 mm[Hg] Ashleigh Candelario MD Work Phone: [facility] 08-13-2023 12:29-0500 Heart rate 58 /min Ashleigh Candelario MD Work Phone: [facility] 08-13-2023 12:29-0500 Systolic blood pressure 123 mm[Hg] Ashleigh Candelario MD Work Phone: [facility] 03-07-2023 09:42-0400 Body weight 62.14 kg Mari Older RECRUITING CONSULTANT.COMMERCIAL FOOD INSTRUCTOR Work Phone: [facility] 03-07-2023 09:42-0400 Diastolic blood pressure 68 mm[Hg] Mari Older RECRUITING CONSULTANT.COMMERCIAL FOOD INSTRUCTOR Work Phone: [facility] 03-07-2023 09:42-0400 Heart rate 60 /min Mari Older RECRUITING CONSULTANT.COMMERCIAL FOOD INSTRUCTOR Work Phone: [facility] 03-07-2023 09:42-0400 Respiratory rate 16 /min Mari Older RECRUITING CONSULTANT.COMMERCIAL FOOD INSTRUCTOR Work Phone: [facility] 03-07-2023 09:42-0400 Systolic blood pressure 112 mm[Hg] Mari Older RECRUITING CONSULTANT.COMMERCIAL FOOD INSTRUCTOR Work Phone: [facility] 02-12-2023 12:07-0400 Diastolic blood pressure 63 mm[Hg] Ashleigh Candelario MD Work Phone: [facility] 02-12-2023 12:07-0400 Heart rate 53 /min Ashleigh Candelario MD Work Phone: [facility] 02-12-2023 12:07-0400 Systolic blood pressure 111 mm[Hg] Ashleigh Candelario MD Work Phone: [facility] 12-13-2022 13:11-0400 Body height 168.9 cm Enzo Nelson MD Work Phone: [facility] 12-13-2022 13:11-0400 Body temperature 98.2 [degF] Enzo Nelson MD Work Phone: [facility] 12-13-2022 13:11-0400 Body weight 61.24 kg Enzo Nelson MD Work Phone: [facility] 12-13-2022 13:11-0400 Diastolic blood pressure 67 mm[Hg] Enzo Nelson MD Work Phone: [facility] 12-13-2022 13:11-0400 Heart rate 63 /min Enzo Nelson MD Work Phone: [facility] 12-13-2022 13:11-0400 Respiratory rate 14 /min Enzo Nelson MD Work Phone: [facility] 12-13-2022 13:11-0400 SaO2% (BldA) [Mass fraction] 97 % Enzo Nelson MD Work Phone: [facility] 12-13-2022 13:11-0400 Systolic blood pressure 126 mm[Hg] Enzo Nelson MD Work Phone: [facility] 10-15-2022 12:12-0400 Body height 168.9 cm Segundo Dong MD Work Phone: [facility] 10-15-2022 12:12-0400 Body temperature 98.2 [degF] Segundo Dong MD Work Phone: [facility] 10-15-2022 12:12-0400 Body weight 60.33 kg Segundo Dong MD Work Phone: [facility] 10-15-2022 12:12-0400 Diastolic blood pressure 57 mm[Hg] Segundo Dong MD Work Phone: [facility] 10-15-2022 12:12-0400 Heart rate 67 /min Segundo Dong MD Work Phone: [facility] 10-15-2022 12:12-0400 SaO2% (BldA) [Mass fraction] 98 % Segundo Dong MD Work Phone: [facility] 10-15-2022 12:12-0400 Systolic blood pressure 100 mm[Hg] Segundo Dong MD Work Phone: [facility] 09-10-2022 14:24-0400 Body height 167.6 cm Alessio Fields MD Work Phone: [facility] 09-10-2022 14:24-0400 Body temperature 98.1 [degF] Alessio Fields MD Work Phone: [facility] 09-10-2022 14:24-0400 Body weight 62.41 kg Alessio Fields MD Work Phone: [facility] 09-10-2022 14:24-0400 Diastolic blood pressure 68 mm[Hg] Alessio Fields MD Work Phone: [facility] 09-10-2022 14:24-0400 Heart rate 88 /min Alessio Fields MD Work Phone: [facility] 09-10-2022 14:24-0400 SaO2% (BldA) [Mass fraction] 98 % Alessio Fields MD Work Phone: [facility] 09-10-2022 14:24-0400 Systolic blood pressure 130 mm[Hg] Alessio Fields MD Work Phone: [facility] 09-04-2022 10:08-0400 Body height 168.9 cm Sera Castillo MD Work Phone: [facility] 09-04-2022 10:08-0400 Body temperature 98.01 [degF] Sera Castillo MD Work Phone: [facility] 09-04-2022 10:08-0400 Body weight 61.24 kg Sera Castillo MD Work Phone: [facility] 09-04-2022 10:08-0400 Diastolic blood pressure 70 mm[Hg] Sera Castillo MD Work Phone: [facility] 09-04-2022 10:08-0400 Heart rate 64 /min Sera Castillo MD Work Phone: [facility] 09-04-2022 10:08-0400 Respiratory rate 12 /min Sera Castillo MD Work Phone: [facility] 09-04-2022 10:08-0400 SaO2% (BldA) [Mass fraction] 97 % Sera Castillo MD Work Phone: [facility] 09-04-2022 10:08-0400 Systolic blood pressure 124 mm[Hg] Sera Castillo MD Work Phone: [facility] 08-14-2022 11:38-0500 Diastolic blood pressure 67 mm[Hg] Ashleigh Candelario MD Work Phone: [facility] 08-14-2022 11:38-0500 Heart rate 62 /min Ashleigh Candelario MD Work Phone: [facility] 08-14-2022 11:38-0500 Systolic blood pressure 117 mm[Hg] Ashleigh Candelario MD Work Phone: [facility] 06-12-2022 13:45-0500 Body height 168.9 cm Enzo Nelson MD Work Phone: [facility] 06-12-2022 13:45-0500 Body temperature 97.9 [degF] Enzo Nelson MD Work Phone: [facility] 06-12-2022 13:45-0500 Body weight 60.33 kg Enzo Nelson MD Work Phone: [facility] 06-12-2022 13:45-0500 Diastolic blood pressure 72 mm[Hg] Enzo Nelson MD Work Phone: [facility] 06-12-2022 13:45-0500 Heart rate 55 /min Enzo Nelson MD Work Phone: [facility] 06-12-2022 13:45-0500 Respiratory rate 14 /min Enzo Nelson MD Work Phone: [facility] 06-12-2022 13:45-0500 SaO2% (BldA) [Mass fraction] 97 % Enzo Nelson MD Work Phone: [facility] 06-12-2022 13:45-0500 Systolic blood pressure 134 mm[Hg] Enzo Nelson MD Work Phone: [facility] 03-18-2022 15:26-0400 Body height 168.9 cm Sera Castillo MD Work Phone: [facility] 03-18-2022 15:26-0400 Body temperature 98.49 [degF] Sera Castillo MD Work Phone: [facility] 03-18-2022 15:26-0400 Body weight 62.14 kg Sera Castillo MD Work Phone: [facility] 03-18-2022 15:26-0400 Diastolic blood pressure 62 mm[Hg] Sera Castillo MD Work Phone: [facility] 03-18-2022 15:26-0400 Heart rate 74 /min Sera Castillo MD Work Phone: [facility] 03-18-2022 15:26-0400 Respiratory rate 12 /min Sera Castillo MD Work Phone: [facility] 03-18-2022 15:26-0400 SaO2% (BldA) [Mass fraction] 95 % Sera Castillo MD Work Phone: [facility] 03-18-2022 15:26-0400 Systolic blood pressure 136 mm[Hg] Sera Castillo MD Work Phone: [facility] 02-13-2022 09:42-0400 Diastolic blood pressure 67 mm[Hg] Ashleigh Candelario MD Work Phone: [facility] 02-13-2022 09:42-0400 Heart rate 59 /min Ashleigh Candelario MD Work Phone: [facility] 02-13-2022 09:42-0400 Systolic blood pressure 123 mm[Hg] Ashleigh Candelario MD Work Phone: [facility] 01-07-2022 09:36-0400 Body height 168.9 cm Sera Castillo MD Work Phone: [facility] 01-07-2022 09:36-0400 Body temperature 98.49 [degF] Sera Castillo MD Work Phone: [facility] 01-07-2022 09:36-0400 Body weight 63.5 kg Sera Castillo MD Work Phone: [facility] 01-07-2022 09:36-0400 Diastolic blood pressure 56 mm[Hg] Sera Castillo MD Work Phone: [facility] 01-07-2022 09:36-0400 Heart rate 63 /min Sera Castillo MD Work Phone: [facility] 01-07-2022 09:36-0400 Respiratory rate 12 /min Sera Castillo MD Work Phone: [facility] 01-07-2022 09:36-0400 SaO2% (BldA) [Mass fraction] 96 % Sera Castillo MD Work Phone: [facility] 01-07-2022 09:36-0400 Systolic blood pressure 108 mm[Hg] Sera Castillo MD Work Phone: [facility] Encounters Encounter Date Encounter Type Care Provider Facility Start: 11-10-2024 End: 11-10-2024 ambulatory Sera Castillo [place] Start: 11-04-2024 End: 11-04-[address] Sera Castillo MD Work Phone: [facility] Work Phone: Start: 11-04-2024 End: 11-04-2024 Patient encounter procedure Nissa JAMISON -Cardiovascular Services Work Phone: Start: 11-04-2024 End: 11-04-2024 ambulatory Sera Castillo Facility:[facility] Start: 10-19-2024 End: 10-19-[address] Sera Castillo MD Work Phone: [facility] Work Phone: Start: 10-19-2024 End: 10-19-2024 Patient encounter procedure Nissa JAMISON -Laboratory Work Phone: Start: 10-19-2024 End: 10-19-2024 Patient encounter procedure Nissa JAMISON -[facility] Work Phone: Start: 10-19-2024 End: 10-19-[address] Sera Castillo MD Work Phone: [facility] Work Phone: Start: 10-19-2024 End: 10-19-2024 ambulatory [facility] Facility:[facility] Start: 10-06-2024 End: 10-07-2024 ambulatory Sera Castillo MD Work Phone: [facility] Comment on above: Medication Question Start: 09-21-2024 End: 09-21-2024 ambulatory SELF Facility:[facility] Start: 09-21-2024 End: 09-21-2024 Office outpatient visit 25 minutes Sera Castillo MD Work Phone: [facility] Comment on above: Cerebrovascular acci dent (CVA), unspecified mechanism (HCC) (Primary Dx); Hypertension, unspecified type; Abdominal aortic aneurysm (AAA) without rupture, unspecified part; Driving safety issue; Prothrombin gene mutation (HCC) Start: 09-18-2024 ambulatory [facility] Facility:[facility] Start: 09-18-2024 Registered Referred Apryl Pacheco -Cardiovascular Services Work Phone: Start: 09-13-2024 End: 09-13-2024 Patient encounter procedure Apryl CALABRESE -Labor[facility], [place] Work Phone: Start: 09-13-2024 End: 09-13-[address] Sera Castillo MD Work Phone: [facility] Work Phone: Start: 09-13-2024 End: 09-13-2024 Patient encounter procedure Apryl CALABRESE -[facility] Work Phone: Start: 09-13-2024 End: 09-13-2024 ambulatory [facility] Start: 09-08-2024 End: 09-08-2024 Patient Outreach Chivo Lay RN [employer] Comment on above: Transition Of Care S tarted Weekly phone contact (Recurring) for Transitional Care Management PT Delay in Care Start: 09-07-2024 End: 09-07-[address] [facility] Facility:[facility] Start: 09-07-2024 End: 09-07-2024 Office outpatient visit 40 minutes Sera Castillo MD Work Phone: [facility] Comment on above: Hospital discharge f ollow-up (Primary Dx); Chronic bronchitis, unspecified chronic bronchitis type (HCC); Thrombus of aorta (HCC); Hypertension, unspecified type; Abdominal aortic aneurysm (AAA) without rupture, unspecified part; Tobacco use disorder; Prothrombin gene mutation (HCC) Start: 09-02-2024 End: 09-03-2024 Telephone encounter Sera Castillo MD Work Phone: [facility] [place] Comment on above: Home Health Orders; Correction Plan of Care Start: 09-01-2024 End: 09-01-2024 Patient Outreach Chivo Lay RN [employer] Comment on above: Transition Of Care I nitial phone contact for Transitional Care Management Start: 08-31-2024 End: 09-01-2024 Telephone encounter Sera Castillo MD Work Phone: [facility] Comment on above: Orders Start: 08-31-2024 Non-patient / Non-visit Dr. Leann Muñoz DO [facility] Work Phone: Start: 08-27-2024 Non-patient / Non-visit Dr. Leann [facility] Work Phone: Start: 08-26-2024 Non-patient / Non-visit Dr. Leann [facility] Work Phone: Start: 08-24-2024 Non-patient / Non-visit Dr. Leann Muñoz [facility] Work Phone: Start: 08-23-2024 Non-patient / Non-visit Dr. Leann Muñoz [facility] Work Phone: Start: 08-20-2024 Non-patient / Non-visit Dr. Leann Muñoz [facility] Work Phone: Start: 08-19-2024 Non-patient / Non-visit Dr. Leann Muñoz [facility] Work Phone: Start: 08-18-2024 ambulatory Anupam Lobo Ryan Facility: [facility] Start: 08-18-2024 End: 08-31-2024 Evaluation and management of inpatient Dr. Elen Muñoz DO -Rehab Unit Work Phone: Start: 08-18-2024 Non-patient / Non-visit Dr. Enzo rendon [facility] Work Phone: Start: 08-17-2024 ambulatory Enzo Mann Facility:[facility] Start: 08-17-2024 Non-patient / Non-visit Dr. Enzo echols MD -[facility] Start: 08-17-2024 ambulatory Sera Castillo Facility:[facility] Start: 08-17-2024 Non-patient / Non-visit Dr. Colleen Morales MD -[facility] Start: 08-17-2024 Non-patient / Non-visit Dr. Enzo rendon [facility] Work Phone: Start: 08-17-2024 ambulatory Enzo Mann Facility:[facility] Start: 08-17-2024 End: 08-18-2024 Evaluation and management of inpatient Dr. Enzo Mann DO -Intensive Care Unit Work Phone: Start: 08-16-2024 End: 08-16-2024 Refill Sera Castillo MD Work Phone: [facility] [place] Comment on above: Refill Request Start: 07-21-2024 End: 09-20-2024 Follow-up encounter Sera Castillo MD Work Phone: Geriatrics Start: 07-20-2024 End: 07-20-[address] [facility] Facility:[facility] Start: 07-20-2024 End: 07-20-2024 Office outpatient visit 15 minutes Sera Castillo MD Work Phone: [facility] [place] Comment on above: Medicare annual well ness visit, subsequent (Primary Dx); Anemia, unspecified type; Sore throat; Dizziness; Hypertension, unspecified type; Tobacco use disorder; Thrombus of aorta (HCC); Prothrombin gene mutation (HCC) Start: 07-20-2024 End: 07-20-2024 Patient encounter procedure Sera Castillo MD Work Phone: [facility] Start: 07-20-2024 End: 07-22-2024 Telephone encounter Sera Castillo MD Work Phone: [facility] [place] Comment on above: Orders (Geriatric co nsult) Start: 07-06-2024 End: 07-06-2024 ambulatory Mya Chavez MA [facility] Start: 07-06-2024 End: 07-06-2024 Patient encounter procedure Mya Chavez MA [facility] Comment on above: Population Health Na vigation Outreach ([facility]/[place]/[facility] ) Start: 05-19-2024 ambulatory [facility] Start: 05-07-2024 End: 05-10-2024 Refill Sera Castillo MD Work Phone: [facility] [place] Comment on above: Refill Request Start: 02-24-2024 End: 02-24-2024 Telephone encounter Enzo Nelson MD Work Phone: Cardiothoracic Comment on above: Follow Up Start: 02-19-2024 End: 02-19-2024 Orders Only Ashleigh Candelario MD Work Phone: Vascular Surg Dept Comment on above: Abdominal aortic ane urysm (AAA) without rupture, unspecified part (HCC) (Primary Dx); Aneurysm of other specified arteries (HCC) Start: 02-18-2024 End: 02-18-2024 Patient encounter procedure Ashleigh Candelario MD Work Phone: Vascular Surg Dept Comment on above: Abdominal aortic ane urysm (AAA) without rupture, unspecified part (HCC) (Primary Dx) Aneurysm of ascendin g aorta without rupture (HCC) (Primary Dx) Start: 02-18-2024 End: 02-18-2024 Subsequent hospital visit by physician Ct 2 Main Qb (I-Stat) Radiology Comment on above: 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] Start: 02-18-2024 End: 02-18-2024 ambulatory SERA ANNA Facility:[facility] Start: 01-19-2024 Orders Only Enzo Nelson MD Work Phone: Cardiothoracic Comment on above: 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 Dx) Start: 11-27-2023 Refill Sera Dumont Work Phone: Internal [facility] [place] Comment on above: Refill Request Start: 11-14-2023 Refill Mari Mcclelland APRN .COMMERCIAL FOOD INSTRUCTOR Work Phone: Internal Medicine [place] Comment on above: Refill Request Start: 09-10-2023 End: 09-10-2023 Patient encounter procedure Delia Martinez APRN.COMMERCIAL FOOD INSTRUCTOR Work Phone: Internal Medicine [place] Comment on above: Recurrent major depr essive disorder, in partial remission (HCC) (Primary Dx); Essential (primary) hypertension ; Abdominal aortic aneurysm (AAA) without rupture, unspecified part (HCC); Low iron stores; Encounter for therapeutic drug monitoring; Screening for lipid disorders Start: 08-15-2023 Orders Only Ashleigh diaz MD Work Phone: Vascular Surg Dept Comment on above: Aneurysm of infraren al abdominal aorta, unspecified whether ruptured (HCC) (Primary Dx) Start: 08-13-2023 End: 08-13-2023 Patient encounter procedure Ashleigh Candelario MD Work Phone: Vascular Surg Dept Comment on above: Abdominal aortic ane urysm (AAA) without rupture, unspecified part (HCC) (Primary Dx); Thrombus of aorta (HCC); Other chronic pulmonary embolism without acute cor pulmonale (HCC); Prothrombin gene mutation (HCC) Start: 07-21-2023 Telephone encounter Delia rachel RECRUITING CONSULTANTReneeCOMMERCIAL FOOD INSTRUCTOR Work Phone: Internal Medicine [place] Comment on above: Medication Question Start: 03-18-2023 ambulatory Mari Mcclelland APRN .COMMERCIAL FOOD INSTRUCTOR Work Phone: Internal Medicine [place] Comment on above: Bloodwork and Urinal ysis Concerns Start: 03-07-2023 End: 03-07-2023 Patient encounter procedure Mari Mcclelland APRN.COMMERCIAL FOOD INSTRUCTOR Work Phone: Internal Medicine [place] Comment on above: Essential (primary) hypertension (Primary Dx); Atherosclerosis of aorta (HCC); Abdominal aortic aneurysm (AAA) without rupture, unspecified part (HCC); Benign prostatic hyperplasia without lower urinary tract symptoms; Prostate cancer screening; Anemia, unspecified type; Elevated glucose; Medication management Start: 02-18-2023 ambulatory Sera Dumont Work Phone: Internal Medicine [facility] Start: 02-12-2023 End: 02-12-2023 Patient encounter procedure Ashleigh Candelario MD Work Phone: Vascular Surg Dept Comment on above: Abdominal aortic ane urysm (AAA) without rupture, unspecified part (HCC) (Primary Dx); Other chronic pulmonary embolism without acute cor pulmonale (HCC) Start: 12-13-2022 End: 12-13-2022 Patient encounter procedure Enzo Nelson MD Work Phone: Cardiothoracic Comment on above: Aneurysm of ascendin g aorta without rupture (HCC) (Primary Dx) Start: 12-13-2022 End: 12-13-2022 Subsequent hospital visit by physician Ct 2 Main Qb (I-Stat) Radiology Comment on above: Aneurysm of ascendin g aorta without rupture (HCC) [I71.21] Start: 10-15-2022 End: 10-15-2022 Patient encounter procedure Segundo Dong MD Work Phone: Thoracic Clinic Comment on above: Localized swelling, mass and lump, trunk (Primary Dx) Start: 09-12-2022 End: 09-12-2022 Subsequent hospital visit by physician [facility] Work Phone: Radiology Comment on above: 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] Start: 09-10-2022 End: 09-10-2022 Patient encounter procedure Alessio Fields MD Work Phone: General Surgery Comment on above: Deformity of scapula Start: 09-04-2022 End: 09-04-2022 Patient encounter procedure Sera Castillo MD Work Phone: Internal Medicine [place] Comment on above: Deformity of scapula (Primary Dx); Fibroma; Abdominal aortic aneurysm (AAA) without rupture, unspecified part (HCC); Prothrombin gene mutation (HCC); Other chronic pulmonary embolism without acute cor pulmonale (HCC) Start: 08-14-2022 End: 08-14-2022 Patient encounter procedure Ashleigh Candelario MD Work Phone: Vascular Surg Dept Comment on above: Abdominal aortic ane urysm (AAA) without rupture, unspecified part (HCC) (Primary Dx) Abdominal aortic ane urysm (AAA) without rupture, unspecified part (HCC) (Primary Dx); Aneurysm of ascending aorta without rupture (HCC) Start: 06-12-2022 End: 06-12-2022 Patient encounter procedure Enzo Nelson MD Work Phone: Cardiothoracic Comment on above: Aneurysm of ascendin g aorta without rupture (Primary Dx) Start: 04-26-2022 Telephone encounter Enzo schwab MD Work Phone: Cardiothoracic Comment on above: Pre-Op Teaching Start: 03-18-2022 End: 03-18-2022 Patient encounter procedure Sera Castillo MD Work Phone: Internal Medicine [place] Comment on above: Gastroesophageal ref lux disease without esophagitis (Primary Dx); Abdominal aortic aneurysm (AAA) without rupture, unspecified part; Tobacco use disorder; Hypertension, unspecified type Start: 02-13-2022 End: 02-13-2022 Patient encounter procedure Ashleigh Candelario MD Work Phone: Vascular Surg Dept Comment on above: Aneurysm of ascendin g aorta (HCC) (Primary Dx); Aneurysm of infrarenal abdominal aorta (HCC); Thoracic aortic aneurysm without rupture (HCC) Start: 01-28-2022 Telephone encounter Enzo schwab MD Work Phone: Cardiothoracic Comment on above: Insurance Inquiry Start: 01-11-2022 Orders Only Ashleigh diaz MD Work Phone: Vascular Surg Dept Comment on above: Abdominal aortic ane urysm (AAA) without rupture (HCC) (Primary Dx); Vasculopathy Appointment Start: 01-08-2022 End: 01-08-2022 Subsequent hospital visit by physician [facility] (I-Stat) Work Phone: Cat Scan Comment on above: Thoracic aortic aneu rysm without rupture (HCC) [I71.2] Atherosclerosis of a burton (HCC) [I70.0] Start: 01-07-2022 Patient encounter status Wendy Castillo MD Work Phone: Internal Medicine [place] Start: 01-07-2022 Telephone encounter Sera wilder MD Work Phone: Internal Medicine [place] Comment on above: Orders (creatintine- stat) Start: 01-07-2022 End: 01-07-2022 Patient encounter procedure Sera Castillo MD Work Phone: Internal Medicine [place] Comment on above: Chronic obstructive pulmonary disease, unspecified COPD type (HCC) (Primary Dx); Essential (primary) hypertension ; Encounter for screening for lung cancer; Thoracic aortic aneurysm without rupture (HCC); Aneurysm of infrarenal abdominal aorta (HCC); Atherosclerosis of aorta (HCC) Start: 12-25-2021 ambulatory Sera Dumont Work Phone: Internal Medicine [place] Start: 09-16-2021 Refill Errol Mcmillan APRN.CNP Work Phone: Internal Medicine [place] Comment on above: Refill Request Start: 09-01-2017 Evaluation and manag ement of inpatient Dell Cook Facility:[facility] Start: 08-20-2017 [facility] Procedures Date Procedure Procedure Detail Performing Clinician Start: 09-13-[address] Sera Castillo MD Work Phone: Comment on above: Performed at: [address] [id number] Director: Tobias Leonard MD, Phone: [phone] at: [id number] [place], [place] [id number] Director: Josué Murry PhD, Phone: [phone] Start: 09-13-2024 Antibody to centromere measurement Dr. Fish Castillo MD Work Phone: Comment on above: Test not performed Start: 09-13-2024 Antibody to extractable nuclear antigen measurement Dr. Sera Castillo MD Work Phone: Comment on above: Test not performed Start: 09-13-2024 Antibody to SLIME-[address] Sera Castillo MD Work Phone: Comment on above: Test not performed Start: 09-13-2024 Antibody to lupus La protein measurement Dr. Sera Castillo MD Work Phone: Comment on above: Test not performed Start: 09-13-2024 Antibody to SS-A measurement Dr. Sera Castillo MD Work Phone: Comment on above: Test not performed Start: 09-13-[address] Sera anglin MD Work Phone: Comment on above: Test not performed Start: 09-13-2024 C>3< complement assay Dr. Sera Castillo MD Work Phone: Start: 09-13-[address] Le[address] genotype [address]. Sera anglin MD Work Phone: Comment on above: Result: c.1601G>A ([id number]) - Not De tectedThis result is not associated with an increased risk for venousthromboembolism. See Additional Clinical Information andComments.Additional Clinical Information:Venous thromboembolism is a multifactorial diseaseinfluenced by genetic, environmental, and circumstantialrisk factors. The c.1601G>A (p. [id number]) variant in theF5 gene, commonly referred to as Factor V Leiden, is agenetic risk factor for venous thromboembolism.Heterozygous carriers of this variant have a 6- to 8-foldincreased risk for venous thromboembolism. Individualshomozygous for this variant (ie, with a copy of the varianton each chromosome) have an approximately 80-fold increasedrisk for venous thromboembolism. Individuals who carry meghna c.*97G>A variant in the F2 gene and Factor V Leiden havean approximately 20-fold increased risk for venousthromboembolism. Risks are likely to be even higher in morecomplex genotype combinations involving the F2 c.*97G>Avariant and Factor V Leiden (PMID: 38969512). Additionalrisk factors include but are not limited to: deficiency ofprotein C, protein S, or antithrombin III, age, male sex,personal or family history of deep vein thromboembolism,smoking, surgery, prolonged immobilization, malignantneoplasm, tamoxifen treatment, raloxifene treatment, oralcontraceptive use, hormone replacement therapy, andpregnancy. Management of thrombotic risk and thromboticevents should follow established guidelines and fit theclinical circumstance. This result cannot predict theoccurrence or recurrence of a thrombotic event.Comment:Genetic counseling is recommended to discuss thepotential clinical implications of positive results, aswell as recommendations for testing family members.Genetic Coordinators are available for health careproviders to discuss results at [phone]).Test Details:Variant Analyzed: c.1601G>A (p. [id number]), referred toas Factor V LeidenMethods/Limitations:DNA analysis of the F5 gene (NM_000130.5) was performedby PCR amplification followed by restriction enzymeanalysis. The diagnostic sensitivity is >99%. Results mustbe combined with clinical information for the most accurateinterpretation. Molecular-based testing is highly accurate,but as in any laboratory test, diagnostic errors may occur.False positive or false negative results may occur forreasons that include genetic variants, blood transfusions,bone marrow transplantation, somatic or tissue-specificmosaicism, mislabeled samples, or erroneous representationof family relationships.This test was developed and its performance characteristicsdetermined by [employer]. It has not been cleared orapproved by the Food and Drug Administration.References:Adryan Bobo, Genesis MOONEY, Hasmukh R, Miguel WW, Celestine JH; ACMGProfessional Practice and Guidelines Committee. Addendum:[place] [employer] consensus statement onfactor V Leiden mutation testing. Dana Med. 2020Aug 11.doi: 10.1038/x14431-347-60918-k. PMID: 57840109.Slim COELHO. Factor V Leiden Thrombophilia. 1998October 20(Updated 2017Jun 12). In: Tomy MP, Maxx HH, Renate RA,et al., editors. Bhaskar(R) (Internet). [place] ([place]):[facility]; 6531-0170. Availablefrom: https://www.ncbi.nlm.nih.gov/books/ZPB3897/Ranulfo Bobo, Genesis MOONEY, Navin X, Javier B, Sathish EB, Hermila P,Lupis CS; ACMG Laboratory Licensed Funeral Director And Embalmer Committee.Venous thromboembolism laboratory testing (factor V Leidenand factor II c.*97G>A), 2018 update: a technical standardof the [place] [employer] and Genomics(ACMG). Dana Med. 2018 May;20(12):2869-1185. doi:10.1038/[id number]-q. Epub 2017Mar 13. PMID: 47957838. Start: 09-13-2024 Hemolytic complement CH50 level Dr. Edson Castillo MD Work Phone: Comment on above: Age Male Female 1 - 30 days Not Estab. N ot Estab. 31 days - 6 months >32 >20 7 months - 17 years >39 >39 >17 years >41 >41 NOTE: The adult (>17 years) reference interval range is used to flag abnormals on this report. If the patient is 17 years old or younger, use the table above to determine out of range values. Start: 09-13-[address] Wendy Castillo MD Work Phone: Comment on above: No lupus anticoagulant was detected. Start: 09-13-2024 Lupus anticoagulant assay, platelet neutralization method Dr. Sera Castillo MD Work Phone: Start: 09-13-2024 Lupus anticoagulant screening test Dr. Fish Castillo MD Work Phone: Start: 09-13-[address] Sera Castillo MD Work Phone: Start: 09-13-2024 VIDEO TAPE EDITOR antibody measurement Dr. Sera anglin MD Work Phone: Comment on above: Test not performed Start: 09-13-2024 Serum IgM anticardiolipin measurement Dr. Sera Castillo MD Work Phone: Comment on above: Negative: <13 Indeterminate: 13 - 20 Low -Med Positive: >20 - 80 High Positive: >80 Start: 08-27-[address] Wendy Castillo MD Work Phone: Start: 08-20-2024 Measurement of occult blood in stool specimen using immunoassay Dr. Sera Castillo MD Work Phone: Start: 08-19-2024 Serum inorganic phosphate measurement Dr. Sera Casitllo MD Work Phone: Start: 08-19-2024 Total iron binding capacity measurement Dr. Sera Castillo MD Work Phone: Start: 08-18-[address] Wendy Castillo MD Work Phone: Start: 08-17-2024 MRI of brain without contrast Dr. Sera Castillo MD Work Phone: Start: 08-17-2024 CT angiography of head and neck Dr. Edson Castillo MD Work Phone: Start: 08-17-2024 CT of head without contrast Dr. Sera haney MD Work Phone: Start: 08-17-2024 Plain chest X-ray Dr. Sera Castillo MD Work Phone: Start: 02-18-2024 Ct angiography chest w/contrast/noncontrast Enzo Nelson MD Work Phone: Start: 02-18-2024 Creatinine [Mass/volume] in Serum or Plasma [facility] Provider Start: 07-07-2023 Ct angiography chest w/contrast/noncontrast Mikayla Deloris RECRUITING CONSULTANT.WHITEPRINTING MACHINE OPERATOR Work Phone: Start: 12-13-2022 Creatinine [Mass/volume] in Serum or Plasma [facility] Provider Start: 09-12-2022 Us chest real time w/image documentation Alessio Fields MD Work Phone: Start: 01-08-2022 Ct angio abd&plvis cntrst mtrl w/wo cntrst img Sera Castillo MD Work Phone: Start: 01-08-2022 Ct angiography chest w/contrast/noncontrast Sera Castillo MD Work Phone: Plan of Treatment Date Care Activity Detail Author Start: 07-20-2027 Diabetes Screening Diabetes Screenin g [facility] Start: 09-09-2026 Diabetes Screening Diabetes Screenin g [facility] Start: 03-07-2026 Diabetes Screening Diabetes Screenin g [facility] Start: 11-27-2025 Urine microalbumin profile [facility] Start: 09-21-2025 Annual PCP Team Nurse Aide akshat Disease Visit Annual PCP Team Chronic Disease Visit [facility] Start: 09-21-2025 BP Controlled (<130/80) BP Controlle d (<130/80) [facility] Start: 09-07-2025 Annual PCP Team Nurse Aide akshat Disease Visit Annual PCP Team Chronic Disease Visit [facility] Start: 09-07-2025 BP Controlled (<130/80) BP Controlle d (<130/80) [facility] Start: 07-20-2025 Annual PCP Team Nurse Aide akshat Disease Visit Annual PCP Team Chronic Disease Visit [facility] Start: 07-20-2025 BP Controlled (<130/80) BP Controlle d (<130/80) [facility] Start: 02-17-2025 BP Controlled (<130/80) BP Controlle d (<130/80) [facility] Start: 02-07-2025 Influenza vaccination Influenz a Vaccine (Season Ended) [facility] Start: 01-17-2025 End: 01-17-2025 Patient encounter procedure 01/17/2025 9:40 AM EDT Office Visit Internal Medicine [place] [address] [place], [place] [id number] Sera Castillo MD [address] [place] [address] 6 month follow up Internal Medicine [place] Comment on above: 6 month follow up Start: 01-08-2025 DIABETES SCREEN DIABETES SCREEN [facility] Start: 01-08-2025 Diabetes Screening Diabetes Screenin g [facility] Start: 09-21-2024 End: 09-21-2024 Patient encounter procedure 09/21/2024 9:00 AM EDT Office Visit Internal Medicine [place] [address] [place] [address] Sera Castillo MD [address] [place] [id number] form from V that needs completed due his stroke Internal Medicine [place] Comment on above: form from [facility] that n eeds completed due his stroke Start: 09-13-2024 Cardiolipin IgA and IgG and IgM panel - Serum [facility] Start: 09-13-2024 Complement C3 [Mass/volume] in Serum or Plasma [facility] Start: 09-13-2024 Complement C4 [Mass/volume] in Serum or Plasma [facility] Start: 09-13-2024 Complement total hemolytic CH50 [Units/volume] in Serum or Plasma [facility] Start: 09-13-2024 Factor V Leiden genotype [facility] Start: 09-13-2024 Lupus anticoagulant assay [facility] Start: 09-13-2024 Protein C [Units/vol ume] in Platelet poor plasma by Coagulation assay [facility] Start: 09-13-2024 Protein C actual/nor mal in Platelet poor plasma by Chromogenic method [facility] Start: 09-13-2024 Protein S assay [facility] Start: 09-13-2024 Protein S function estimate [facility] Start: 09-13-2024 Targeted analysis fo r gene mutation [facility] Start: 09-13-2024 Thiamine measurement [facility] Start: 09-13-2024 [facility] Start: 09-09-2024 Annual PCP Team Nurse Aide akshat Disease Visit Annual PCP Team Chronic Disease Visit [facility] Start: 09-09-2024 BP Controlled (<130/80) BP Controlle d (<130/80) [facility] Start: 09-08-2024 End: 09-08-2024 Patient encounter procedure 09/08/2024 1:30 PM EDT Office Visit Geriatrics [address] [facility] [place] [address] Sera Castillo MD [address] [facility] [place] [address] Memory impairment [R41.3] Geriatrics Comment on above: Memory impairment [R 41.3] Start: 09-07-2024 End: 09-07-2024 Patient encounter procedure 09/07/2024 3:40 PM EDT Office Visit Internal Medicine [place] [address] [facility] [place] [address] Sera Castillo MD [address] [facility] [place] [address] hospital follow up [facility] [place] Comment on above: hospital follow up Start: 08-31-2024 Patient discharge [facility] Start: 08-31-2024 Palliative care [facility] Start: 08-30-2024 Referral to service [facility] Start: 08-30-2024 [facility] Start: 08-26-2024 Inhalation therapy procedure [facility] Start: 08-18-2024 Following clinical pathway protocol [facility] Start: 08-18-2024 Recommendation to continue with treatment [facility] Start: 08-18-2024 Referral to service [facility] Start: 08-18-2024 Urinary bladder training [facility] Start: 08-18-2024 Admission procedure [facility] Start: 08-18-2024 Measuring intake and output [facility] Start: 08-18-2024 Patient referral to dietitian [facility] Start: 08-18-2024 Referral to occupati onal therapist [facility] Start: 08-18-2024 Vital signs measurements [facility] Start: 08-18-2024 [facility] Start: 08-18-2024 Patient discharge [facility] Start: 08-17-2024 Following clinical pathway protocol [facility] Start: 08-17-2024 Aspiration precautions [facility] Start: 08-17-2024 Assessment of risk o f venous thromboembolism [facility] Start: 08-17-2024 Cardiac monitoring [facility] Start: 08-17-2024 Catheterization of vein [facility] Start: 08-17-2024 Consultation [facility] Start: 08-17-2024 Continuous pulse oximetry [facility] Start: 08-17-2024 Elevation of head of bed [facility] Start: 08-17-2024 Exercises [facility] Start: 08-17-2024 Insertion of cathete r into peripheral vein [facility] Start: 08-17-2024 Measuring intake and output [facility] Start: 08-17-2024 MRI of brain without contrast Brain without Contrast [facility] Start: 08-17-2024 Notification of physician [facility] Start: 08-17-2024 Oxygen therapy [facility] Start: 08-17-2024 Patient referral to dietitian [facility] Start: 08-17-2024 Providing care accor ding to standard [facility] Start: 08-17-2024 Provision of activit y privileges [facility] Start: 08-17-2024 Referral to occupati onal therapist [facility] Start: 08-17-2024 Referral to service [facility] Start: 08-17-2024 End: 08-18-2024 Speech therapy assessment [facility] Start: 08-17-2024 Telemedicine consult ation with patient [facility] Start: 08-17-2024 Tobacco use cessatio n education [facility] Start: 08-17-2024 End: 08-17-2024 [facility] Start: 08-17-2024 Vital signs measurements [facility] Start: 08-17-2024 Verification routine [facility] Start: 08-17-2024 Admission procedure [facility] Start: 08-12-2024 BP Controlled (<130/80) BP Controlle d (<130/80) [facility] Start: 07-20-2024 End: 10-19-2024 CBC W Auto Differential panel - Blood [facility] Work Phone: Comment on above: Expected: 07/20/2024 , Expires: 10/19/2024 Start: 07-20-2024 End: 10-19-2024 Comprehensive metabolic 2000 panel - Serum or Plasma [facility] Comment on above: Expected: 07/20/2024 , Expires: 10/19/2024 Start: 06-10-2024 Annual PCP Team Nurse Aide akshat Disease Visit Annual PCP Team Chronic Disease Visit [facility] Start: 06-10-2024 BP Controlled (<130/80) BP Controlle d (<130/80) [facility] Start: 06-09-2024 Advance Directive Discussion Advance Directive Discussion [facility] Start: 03-16-2024 End: 03-16-2024 Patient encounter procedure 03/16/2024 10:00 AM EDT Office Visit [facility] [address], [place] [id number] Delia Martinez APRN.[employer]CIAL [employer]OD INSTRUCTOR [address] [place] [address] 6 month follow up [facility] Comment on above: 6 month follow up Start: 03-12-2024 End: 02-17-2025 CTA Chest vessels W contrast IV CTA CHEST (GATED) W IVCON Radiology Routine Disorder of artery or arteriole (HCC) Expected: 03/12/2024, Expires: 02/17/2025 [facility] Work Phone: Comment on above: Expected: 03/12/2024 , Expires: 02/17/2025 Start: 03-12-2024 End: 03-12-2024 Patient encounter procedure [facility] Comment on above: 6 month follow up 12 MONTH FOLLOW UP Start: 03-07-2024 Annual PCP Team Nurse Aide akshat Disease Visit Annual PCP Team Chronic Disease Visit [facility] Start: 03-07-2024 BP Controlled (<130/80) BP Controlle d (<130/80) [facility] Start: 02-18-2024 End: 02-18-2024 Patient encounter procedure Vascular Surgery Comment on above: 6 Month Follow Up W/ AAA Duplex Start: 02-13-2024 BP CONTROLLED (<130/80) BP CONTROLLE D (<130/80) [facility] Start: 02-08-2024 Covid-19 Vaccine () Covid-19 Vaccine () [facility] Start: 02-08-2024 Covid-19 Vaccine () Covid-19 Vaccine () [facility] Start: 02-08-[address] [facility] Start: 12-14-2023 BP CONTROLLED (<130/80) BP CONTROLLE D (<130/80) [facility] Start: 12-07-2023 Influenza vaccination Influenza Vacc ine (#1) [facility] Comment on above: Postponed from 02/07 (Declined at this time) Start: 10-16-2023 BP CONTROLLED (<130/80) BP CONTROLLE D (<130/80) [facility] Start: 09-05-2023 ANNUAL PCP TEAM HISTORICAL SITE GUIDE AKSHAT DISEASE VISIT ANNUAL PCP TEAM CHRONIC DISEASE VISIT [facility] Start: 09-05-2023 BP CONTROLLED (<130/80) BP CONTROLLE D (<130/80) [facility] Start: 08-15-2023 BP CONTROLLED (<130/80) BP CONTROLLE D (<130/80) [facility] Start: 06-27-2023 DIABETES SCREEN DIABETES SCREEN [facility] Start: 06-09-2023 Advance Directive Discussion Advance Directive Discussion [facility] Start: 03-18-2023 ANNUAL PCP TEAM HISTORICAL SITE GUIDE AKSHAT DISEASE VISIT ANNUAL PCP TEAM CHRONIC DISEASE VISIT [facility] Start: 02-18-2023 End: 04-20-2023 Basic metabolic 2000 panel - Serum or Plasma BASIC METABOLIC PNL Lab Routine Hypertension Expected: 02/18/2023, Expires: 04/20/2023 [facility] Work Phone: Comment on above: Expected: 02/18/2023 , Expires: 04/20/2023 Start: 02-18-2023 End: 04-20-2023 CBC panel - Blood by Automated count CBC Lab Routine Medication management Expected: 02/18/2023, Expires: 04/20/2023 [facility] Work Phone: Comment on above: Expected: 02/18/2023 , Expires: 04/20/2023 Start: 02-13-2023 BP CONTROLLED (<130/80) BP CONTROLLE D (<130/80) [facility] Start: 02-07-2023 Covid-19 Vaccine ( season) Covid-19 Vaccine ( season) [facility] Start: 02-07-[address] [facility] Start: 01-07-2023 ANNUAL PCP TEAM HISTORICAL SITE GUIDE AKSHAT DISEASE VISIT ANNUAL PCP TEAM CHRONIC DISEASE VISIT [facility] Start: 01-07-2023 BP CONTROLLED (<130/80) BP CONTROLLE D (<130/80) [facility] Start: 06-28-2022 ANNUAL PCP TEAM HISTORICAL SITE GUIDE AKSHAT DISEASE VISIT ANNUAL PCP TEAM CHRONIC DISEASE VISIT [facility] Start: 06-09-2022 ADVANCE DIRECTIVE DISCUSSION ADVANCE DIRECTIVE DISCUSSION [facility] Start: 02-07-2022 Influenza vaccination [facility] Start: 01-07-2022 End: 03-09-2022 CREATININE BLD CREATININE BLD Lab Routine Hypertension, unspecified type Pre-procedure lab exam Expected: 01/07/2022, Expires: 03/09/2022 [facility] Work Phone: Comment on above: Expected: 01/07/2022 , Expires: 03/09/2022 Start: 12-26-2021 Influenza vaccination LUNG CANCER [facility] Comment on above: Postponed from 01/13 (Declined at this time) Start: 12-25-2021 End: 02-24-2022 Basic metabolic 2000 panel - Serum or Plasma BASIC METABOLIC PNL Lab Routine Hypertension Expected: 12/25/2021, Expires: 02/24/2022 [facility] Work Phone: Comment on above: Expected: 12/25/2021 , Expires: 02/24/2022 Start: 12-25-2021 End: 02-24-2022 CBC panel - Blood by Automated count CBC Lab Routine Medication management Expected: 12/25/2021, Expires: 02/24/2022 [facility] Work Phone: Comment on above: Expected: 12/25/2021 , Expires: 02/24/2022 Start: 12-25-2021 End: 02-24-2022 SCHEDULE LAB TESTING SCHEDULE LAB TESTING Lab Routine Expected: 12/25/2021, Expires: 02/24/2022 [facility] Work Phone: Comment on above: Expected: 12/25/2021 , Expires: 02/24/2022 Start: 07-29-2021 COVID-19 VACCINE (4 - Booster for Pfizer series) COVID-19 VACCINE (4 - Booster for Pfizer series) [facility] Start: 06-09-2021 ADVANCE DIRECTIVE DISCUSSION ADVANCE DIRECTIVE DISCUSSION [facility] Start: 05-23-2021 COVID-19 VACCINE (4 - Booster for Pfizer series) COVID-19 VACCINE (4 - Booster for Pfizer series) [facility] Start: 05-23-2021 COVID-19 VACCINE (4 - Pfizer series) COVID-19 VACCINE (4 - Pfizer series) [facility] Start: 04-25-2020 SHINGRIX VACCINE (3 of 3) GOMEZ GRIX VACCINE (3 of 3) [facility] Start: 01-13-2019 RSV Vaccine (1 - 1-d ose 75+ series) RSV Vaccine (1 - 1-dose 75+ series) [facility] Start: 04-22-2013 Pneumococcal Vaccine : 50+ (2 of 2 - PCV) Pneumococcal Vaccine: 50+ (2 of 2 - PCV) [facility] Start: 04-22-2013 Pneumococcal Vaccine : 65+ (2 - PCV) Pneumococcal Vaccine: 65+ (2 - PCV) [facility] Start: 04-22-2013 Pneumococcal Vaccine : 65+ (2 of 2 - PCV) Pneumococcal Vaccine: 65+ (2 of 2 - PCV) [facility] Start: 04-22-2013 PNEUMOCOCCAL: 65+ (2 - PCV) PNEUMOCOCCAL: 65+ (2 - PCV) [facility] Start: 2004 RSV Vaccine (1 - 1-d ose 60+ series) RSV Vaccine (1 - 1-dose 60+ series) [facility] Start: 01-13-1994 Influenza vaccination LUNG CANCER SC REENING [facility] Start: 01-13-1962 BP CONTROLLED (<130/80) BP CONTROLLE D (<130/80) [facility] Anion gap in Serum o r Plasma [facility] Antithrombin [facility]rombin III ass ay, functional [facility] BUN/Creatinine ratio [facility] Calcium [Mass/volume ] in Serum or Plasma [facility] Carbon dioxide, tota l [Moles/volume] in Central venous blood [facility] Cardiac event recording [facility] Cardiolipin IgG Ab [Units/volume] in Serum or Plasma [facility] Cardiolipin IgM Ab [Units/volume] in Serum or Plasma [facility] Cholesterol [Mass/vo lume] in Serum or Plasma [facility] Cholesterol in HDL [Mass/volume] in Serum or Plasma [facility] Comprehensive metabo lic 2000 panel - Serum or Plasma [facility] Creatinine [Mass/vol ume] in Serum or Plasma [facility] End: 02-06-2023 Ct angio abd&plvis cntrst mtrl w/wo cntrst img CTA ABD/PEL W IVCON Radiology BRISA Thoracic aortic aneurysm without rupture (HCC) Aneurysm of infrarenal abdominal aorta (HCC) 1 Occurrences starting 01/07/2022 until 02/06/2023 [facility] Work Phone: Comment on above: 1 Occurrences starti ng 01/07/2022 until 02/06/2023 End: 02-10-2023 Ct angio abd&plvis cntrst mtrl w/wo cntrst img CTA ABD/PEL WO/W IVCON Radiology Routine Abdominal aortic aneurysm (AAA) without rupture (HCC) Vasculopathy 1 Occurrences starting 01/11/2022 until 02/10/2023 [facility] Work Phone: Comment on above: 1 Occurrences starti ng 01/11/2022 until 02/10/2023 End: 02-06-2023 Ct angiography chest w/contrast/noncontrast CTA CHEST (NONGATED) W IVCON Radiology BRISA Atherosclerosis of aorta (HCC) 1 Occurrences starting 01/07/2022 until 02/06/2023 [facility] Work Phone: Comment on above: 1 Occurrences starti ng 01/07/2022 until 02/06/2023 End: 02-10-2023 Ct angiography chest w/contrast/noncontrast CTA CHEST (NONGATED) WO/W IVCON Radiology Routine Abdominal aortic aneurysm (AAA) without rupture (HCC) 1 Occurrences starting 01/11/2022 until 02/10/2023 [facility] Work Phone: Comment on above: 1 Occurrences starti ng 01/11/2022 until 02/10/2023 End: 03-25-2025 CTA Chest vessels W contrast IV CTA CHEST (GATED) W IVCON Radiology Routine Disorder of artery or arteriole (HCC) 1 Occurrences starting 02/24/2024 until 03/25/2025 [facility] Work Phone: Comment on above: 1 Occurrences starti ng 02/24/2024 until 03/25/2025 CTA Upper extremity vessels WO and W contrast IV [facility] Doppler ultrasonogra phy of aorta [facility] End: 02-23-2025 Echocardiography ECHO Cardiology Routine Disorder of artery or arteriole (HCC) Chest pain, unspecified 1 Occurrences starting 02/24/2024 until 02/23/[address] [facility] Comment on above: 1 Occurrences starti ng 02/24/2024 until 02/23/2025 Erythrocyte mean corpuscular volume determination [facility] F5 gene mutations fo und [Identifier] in Blood or Tissue by Molecular genetics method Nominal [facility] Glucose [Mass/volume ] in Serum or Plasma [facility] Hematocrit [Volume Fraction] of Blood [facility] Hemoglobin [Mass/vol ume] in Blood [facility] IgA anticardiolipin level [facility] Leukocytes [#/volume ] in Blood [facility] Low density lipoprot ein cholesterol measurement [facility] Lupus anticoagulant screening test [facility] Mean corpuscular hemoglobin concentration determination [facility] Mean corpuscular hemoglobin determination [facility] Measurement of renal function [facility] End: 11-16-2023 Mri chest w/o & w/contrast material MRI CHEST LUNG/MEDIA/PULM ARTERY WO/W IVCON Radiology Routine Localized swelling, mass and lump, trunk 1 Occurrences starting 10/17/2022 until 11/16/2023 [facility] Work Phone: Comment on above: 1 Occurrences starti ng 10/17/2022 until 11/16/2023 Neutrophil count [facility] Neutrophil percent differential count [facility] Partial thromboplast in time ratio [facility] Patient Education Understanding Dementia Dementia Caregiver Tips [facility] Work Phone: Patient referral [facility] Work Phone: Platelets [#/volume] in Blood [facility] Potassium measurement [facility] Protein S Free Ag actual/normal in Platelet poor plasma by Immunoassay [facility] Protein S, functiona l assay [facility] Red blood cell count [facility] Red cell distributio n width determination [facility] Serum chloride measurement [facility] Sodium measurement [facility] Thrombin time [facility] Total cholesterol:HD L ratio measurement [facility] Triglycerides measurement [facility] Urea nitrogen [Mass/volume] in Serum or Plasma [facility] End: 08-15-2023 US ABD AORTA COMPLETE VAS LAB US ABD AORTA COMPLETE VAS LAB Vascular Lab Routine Abdominal aortic aneurysm (AAA) without rupture, unspecified part (HCC) Aneurysm of ascending aorta without rupture (HCC) 1 Occurrences starting 08/14/2022 until 08/15/2023 [facility] Work Phone: Comment on above: 1 Occurrences starti ng 08/14/2022 until 08/15/2023 End: 08-14-2024 US Abdominal Aorta US ABD AORTA COMPLETE VAS LAB Vascular Lab Routine Aneurysm of infrarenal abdominal aorta, unspecified whether ruptured (HCC) 1 Occurrences starting 08/15/2023 until 08/14/2024 [facility] Work Phone: Comment on above: 1 Occurrences starti ng 08/15/2023 until 08/14/2024 End: 02-18-2025 US Abdominal Aorta US ABD AORTA COMPLETE VAS LAB Vascular Lab Routine Abdominal aortic aneurysm (AAA) without rupture, unspecified part (HCC) Aneurysm of other specified arteries (HCC) 1 Occurrences starting 02/19/2024 until 02/18/2025 [facility] Work Phone: Comment on above: 1 Occurrences starti ng 02/19/2024 until 02/18/2025 US Carotid arteries [facility] End: 10-10-2023 Us chest real time w/image documentation US CHEST WALL/SOFT TISSUE Radiology Routine Deformity of scapula 1 Occurrences starting 09/10/2022 until 10/10/2023 [facility] Work Phone: Comment on above: 1 Occurrences starti ng 09/10/2022 until 10/10/2023 End: 10-10-2023 US SOFT TISSUE ABDOMEN US SOFT TISSUE ABDOMEN Radiology Routine Deformity of scapula 1 Occurrences starting 09/10/2022 until 10/10/2023 [facility] Work Phone: Comment on above: 1 Occurrences starti ng 09/10/2022 until 10/10/2023 VLDL cholesterol measurement [facility] [place] Immunizations Immunization Date Immunization Notes Care Provider [facility] 03-28-2021 Covid (Pfizer) Dr. Sera hutchinson MD Work Phone: [facility] 09-05-2020 COVID-19 vaccine, ag e 12+ yr (PFIZER-BIONTECH - PURPLE TOP) Errol Mcmillan APRN.[facility] Work Phone: [facility] Work Phone: 08-14-2020 COVID-19 vaccine, ag e 12+ yr (PFIZER-BIONTECH - PURPLE TOP) Errol Mcmillan APRN.[facility] Work Phone: [facility] Work Phone: 04-11-2020 influenza, high-dose , quadrivalent vaccine (FLUZONE HIGH DOSE QUADRIVALENT) Errol Mcmillan APRN.[facility] Work Phone: [facility] Work Phone: 04-11-2020 influenza virus vacc ine, unspecified formulation Sera Castillo MD Work Phone: [facility] 02-29-2020 zoster vaccine recombinant Errol Mcmillan APRN.[facility] Work Phone: [facility] Work Phone: 03-10-2019 influenza, high dose seasonal, preservative-free Errol Mcmillan APRN.[employer] Work Phone: [facility] 04-06-2018 influenza, high dose seasonal, preservative-free Errol Mcmillan APRN.[employer] Work Phone: [facility] 05-21-2017 influenza, injectabl e, quadrivalent, contains preservative Enzo Nelson MD Work Phone: [facility] 11-28-2015 tetanus toxoid, redu tavia diphtheria toxoid, and acellular pertussis vaccine, adsorbed Errol Mcmillan RECRUITING CONSULTANT.[facility] Work Phone: [facility] Work Phone: 01-30-2015 tetanus toxoid, redu tavia diphtheria toxoid, and acellular pertussis vaccine, adsorbed Errol Mcmillan RECRUITING CONSULTANT.[facility] Work Phone: [facility] Work Phone: 01-30-2015 zoster vaccine, live Errol diana RECRUITING CONSULTANT.[employer] Work Phone: [facility] Work Phone: 03-22-[address] Sera Castillo MD Work Phone: [facility] 03-22-2014 influenza, seasonal, injectable Enzo Nelson MD Work Phone: [facility] 03-22-2014 influenza, seasonal, injectable, preservative free Errol Mcmillan APRN.[employer] Work Phone: [facility] Work Phone: 03-16-2014 influenza, seasonal, injectable Errol Mcmillan APRN.[employer]ER[employer] IN[employer] Work Phone: [facility] 08-03-2013 tetanus and diphther ia toxoids, adsorbed, preservative free, for adult use (2 Lf of tetanus toxoid and 2 Lf of diphtheria toxoid) Errol Mcmillan APRN.[employer]ER[employer] INSTRU[employer] Work Phone: [facility] 05-03-2013 influenza virus vacc ine, unspecified formulation Errol Mcmillan APRN.[employer]ER[employer]OD INSTRUCTOR Work Phone: [facility] 04-22-2012 influenza virus vacc ine, unspecified formulation Errol Hipolito MCNAMARA.[employer]ER[employer]OD INSTRUCTOR Work Phone: [facility] 04-22-2012 pneumococcal polysaccharide vaccine, 23 valent Errol Hipolito MCNAMARA.[employer] Work Phone: [facility] Work Phone: Payers Date Payer Category Payer Private Health Insurance [id number] 2024 Self-pay 2012 Private Health Insurance [facility] INDEMNITY [id number] 2012-Present [phone] [address] [place] [address] Indemnity [id number] 2012 Private Health Insurance [id number] 2012 Unknown [id number] 2009 Medicare MEDICARE MEDICAR E A AND B [id number] 2009-Present [phone] [address] [address] [place] [address] Medicare [id number] 2009 Medicare [id number] 2009 Medicare [id number] Unknown [id number]. 2.462 Unknown [id number] [id number]. 2.462 Unknown [id number] [id number]. 2.462 Unknown [id number] [id number]. 2.462 Unknown [id number] [id number]. 2.462 Unknown [id number] 2.16.840.1.427414.3.579. 2.462 Unknown [id number] 2.16.840.1.992949.3.579. 2.462 Unknown [id number] 2.16.840.1.236083.3.579. 2.462 Unknown [id number] 2.16.840.1.690721.3.579. 2.462 Unknown [id number] 2.16.840.1.521481.3.579. 2.462 Unknown [id number] [id number]. 2.462 Unknown [id number] 2.840.1.978287.3.579. 2.462 Unknown [id number] [id number]. 2.462 Unknown [id number] 2.840.1.371130.3.579. 2.462 Unknown [id number] [id number]. 2.462 Unknown [id number] [id number]. 2.462 Unknown [id number] 2.16.840.1.170619.3.579. 2.462 Unknown [id number] 2.16.840.1.714508.3.579. 2.462 Unknown [id number] 2.16.840.1.894804.3.579. 2.462 Unknown [id number] 2.16.840.1.701973.3.579. 2.462 Unknown [id number] [id number]. 2.462 Unknown [id number]. 2.462 Social History Date Type Detail Facility Start: 08-15-2010 End: 08-31-2024 Tobacco smoking status NHIS Smokes tobacco daily [facility] Work Phone: Start: 06-09-1964 History of tobacco use Cigarette Smo ker [facility] Work Phone: Start: 08-15-2010 End: 10-15-2022 Cigarettes smoked current (pack per day) - Reported [address] [facility] Start: 08-15-2010 End: 02-18-2024 Tobacco use and exposure Smokeless tobacco non-user [facility] Work Phone: Start: 06-29-2021 End: 02-18-2024 Alcohol intake Current non-drinker of alcohol (finding) [facility] Start: 02-05-2012 History SDOH Alcohol Comment Was discussed with Dr. Rob at pre-op eval 11/19/[address] [facility] Start: 08-03-2013 End: 02-13-2022 Tobacco Comment varies day to day--now 0.5PPD or less, usually less [facility] Start: 1945 Sex Assigned At Not on file [facility] Start: 12-28-2021 End: 03-18-2022 Exposure to SARS-CoV-2 (event) Not sure [facility] Work Phone: Start: 10-15-2022 End: 12-13-2022 Tobacco use panel [facility] National Score (1-10 0), lower number is lower risk [address] [facility] Start: 03-13-2021 Heavy Heavy [facility] Start: 03-13-2021 None None [facility] Start: 08-31-2018 Spouse/ Significant Other Spouse/ Significant Other [facility] Start: 03-13-2021 Cigarettes Cigarettes [facility] Start: 08-17-2024 End: 09-17-2024 Sex Male (finding) [facility] Start: 1945 Sex Assigned At Male [facility] Start: 10-19-2024 Tobacco smoking stat us NHIS Current Heavy tobacco smoker [facility] Goals Date Patient Goal Desired Activity /State Personal health goal Functional Status Date Assessment Result Facility 08-31-2024 Functional status Activity Abili ty Standby Assist [facility] Work Phone: 08-30-2024 Functional status Bedrest [facility] Work Phone: 08-18-2024 Functional status Chair [facility] Work Phone: 12-07-2014 Are you deaf, or do you have serious difficulty hearing No 12/07/2014 1:01 PM Michelle Zarate LPN No [facility] 12-07-2014 Are you blind, or do you have serious difficulty seeing, even when wearing glasses No 12/07/2014 1:01 PM Michelle Zarate LPN No [facility] 12-07-2014 Do you have serious difficulty walking or climbing stairs No 12/07/2014 1:01 PM Michelle Zarate LPN No [facility] 12-07-2014 Do you have difficul ty dressing or bathing No 12/07/2014 1:01 PM Michelle Zarate LPN No [facility] 12-07-2014 Because of a physica l, mental, or emotional condition, do you have difficulty doing errands alone such as visiting a physician's office or shopping No 12/07/2014 1:01 PM Michelle Zarate LPN No [facility] Mental Status Date Assessment Result Facility 08-31-2024 Cognitive function Demonstrates ability to follow instructions/comprehend [facility] Work Phone: 08-30-2024 Cognitive function Voice/Name [facility] Work Phone: 08-18-2024 Cognitive function Awake;Alert;A ppropriate;Fo llows Commands [facility] Work Phone: 08-17-2024 Cognitive function Voice/Name [facility] Work Phone: 12-07-2014 Because of a physica l, mental, or emotional condition, do you have serious difficulty concentrating, remembering, or making decisions No 12/07/2014 1:01 PM Michelle Zarate LPN No [facility] Clinical Notes 02-28-2012 to 10-07-2024 Telephone Encounter - Vika Forbes RN - 10/07/2024 2:18 PM EDTTelephone Encounter - Vika Forbes RN - 10/07/2024 2:18 PM EDTPatient Instructions Note Date & Type Note Facility 10-07-2024 Telephone encounter Note Spouse returns call and notified of provider message with verbalized understanding. Vika Forbes RN [facility] 10-07-2024 Miscellaneous Notes Spouse returns call and notified of provider message with verbalized understanding. Vika Forbes RN Phoned patient Gricelda and left message to return call and ask to speak to a nurse. Ok to stop the seroquel. Please keep the sertraline going on. Regards, Sera Castillo MD Spouse calling to ask if patient could be taken off sertraline and Seroquel now that he is back home and has adjusted. She reports patient is quiet, low nayak, and not as sharp. Nurse triage completed and protocol recommends call office when open. Triager unable to answer question. Please advise. Reason for Disposition [1] Caller has NON-URGENT medicine question about med that PCP prescribed AND [2] triager unable to answer question Answer Assessment - Initial Assessment Questions 1. NAME of MEDICINE: Sertraline 50 mg daily and Seroquel 25 mg at bedtime 2. QUESTION: Spouse is asking now that he is back home and adjusting fine would it be possible to discontinue sertaline and/or seroquel? 3. PRESCRIBER: Initially hospital then Dr. Castillo 4. SYMPTOMS: Spouse reports patient is quiet, low nayak, not as sharp. In the hospital, he was behavioral and acting out because he wanted to go home. Protocols used: Medication Question [id number] documented in this encounter [facility] 10-07-2024 Telephone encounter Note Phoned patient Gricelda and left message to return call and ask to speak to a nurse. [facility] 10-07-2024 Telephone encounter Note Ok to stop the seroquel. Please keep the sertraline going on. Regards, Sera Castillo MD [facility] 10-06-2024 Telephone encounter Note Spouse calling to ask if patient could be taken off sertraline and Seroquel now that he is back home and has adjusted. She reports patient is quiet, low nayak, and not as sharp. Nurse triage completed and protocol recommends call office when open. Triager unable to answer question. Please advise. Reason for Disposition [1] Caller has NON-URGENT medicine question about med that PCP prescribed AND [2] triager unable to answer question Answer Assessment - Initial Assessment Questions 1. NAME of MEDICINE: Sertraline 50 mg daily and Seroquel 25 mg at bedtime 2. QUESTION: Spouse is asking now that he is back home and adjusting fine would it be possible to discontinue sertaline and/or seroquel? 3. PRESCRIBER: Initially [facility] then Dr. Castillo 4. SYMPTOMS: Spouse reports patient is quiet, low nayak, not as sharp. In the hospital, he was behavioral and acting out because he wanted to go home. Protocols used: Medication Question [id number] [facility] 09-21-2024 Instructions Sera Castillo MD - 09/21/2024 9:37 AM EDT We discussed your driving evaluation: - You are currently allowed to drive locally, but you must first pass a vision test at the [employer] [facility] ([facility]). This will involve looking into a vision testing device at the [facility]. - I have approved a temporary driving privilege for 6 months, contingent on completing the following: - Pass the vision test at the [facility]. - Complete a simulated driving test at the [facility] within the next 6 months. This test will evaluate your reflexes, ability to navigate, and overall safety on the road. It is not a real driving test, and you will not be on the road. Instead, you will sit in a simulated car with a steering wheel and pedals to mimic real driving conditions. - The results of the simulated driving test will be reviewed by an occupational therapist, who will determine if it is safe for you to continue driving. - Please note that if the simulated driving test is not completed within 6 months, your driving privileges may not be extended. We discussed your medical history and current health: - You have a history of coronary artery disease (CAD), abdominal aortic aneurysm, Wernicke's encephalopathy, depression, COPD, hypertension, and diverticulosis. You are also on blood thinners as prescribed by your neurologist. - You recently experienced a stroke and underwent rehabilitation. You are currently wearing a heart monitor to check for any additional strokes or related issues. - You do not have diabetes, Parkinson s disease, or any known vision abnormalities. Your last alcohol use was approximately 12 years ago. - Your memory is generally good, though you occasionally misplace items, which has been a long-standing pattern. Next steps: - Schedule and complete a vision test at the [facility] as soon as possible. - Schedule the simulated driving test at the [facility] within the next 6 months. - Continue to drive locally only after passing the vision test and while awaiting the simulated driving test. - If you have any questions or concerns, please contact our office. documented in this encounter [facility] 09-21-2024 Note HNO ID: [id number] Author: SERA CASTILLO MD Service: ? Author Type: Physician Type: Progress Notes Filed: 09/21/2024 10:08 Note Text: Reason for Visit Driving safety HPI Leo is a 79-year-old male with a history of CAD, abdominal aortic aneurysm, Wernicke's encephalopathy, depression, COPD, HTN, diverticulosis, and prothrombin gene mutation, presenting to discuss a driving evaluation following a recent CVA. Leo was recently admitted to [facility] for a CVA and subsequently underwent rehabilitation. He is seeking to resume driving and is accompanied by his daughter, who is advocating on his behalf. Leo has not driven since the CVA, as he was uncertain if he was permitted to do so. He expresses a desire to drive locally within [place], specifically to places like the [facility] and [employer], and does not wish to drive outside of [place] or on the interstate. He has a long history of safe driving, with no accidents and only one speeding ticket in 1968. Leo's daughter expresses concerns about her father's ability to pass a driving test in an unfamiliar city, as [place] no longer offers driving tests. She believes that driving in an unfamiliar area would make him nervous and anxious, potentially affecting his performance. She also notes that her father has not had any vision abnormalities and is currently wearing a heart monitor ordered by a neurologist to check for mini strokes. He is on anticoagulant therapy and has not consumed alcohol for approximately 12 years. Leo denies any history of KS, DM, or Parkinson's disease. He reports occasional forgetfulness, such as misplacing his wallet, but his daughter notes that this has been a long-standing issue and is not new. Social History Tobacco Use Smoking status: Every Day Current packs/day: 0.50 Average packs/day: 0.5 packs/day for 61.3 years (30.6 ttl pk-yrs) Types: Cigarettes Start date: [birth year]09/1964 Smokeless tobacco: Never Tobacco comments: varies day to day--now 0.5PPD or less, usually less Vaping Use Vaping status: Never Used Substance Use Topics Alcohol use: No Alcohol/week: 12.0 standard drinks of alcohol Types: 12 Cans of Beer (12oz) per week Comment: Was discussed with Dr. Rob at pre-op eval 11/19/11 Drug use: No Past medical history, appointments, medications, allergies reviewed. Pertinent Lab/Diagnostic Studies are reviewed and discussed today Current Outpatient Medications: NIFEdipine ER (PROCARDIA XL) 30 mg 24 hr tablet atorvastatin (LIPITOR) 80 mg tablet clopidogrel (PLAVIX) 75 mg tablet QUEtiapine (SEROQUEL) 25 mg tablet sertraline (ZOLOFT) 50 mg tablet ramipril (ALTACE) 10 mg capsule cyanocobalamin (VITAMIN B-12) 1,000 mcg tab OTC PRODUCT aspirin, enteric coated (ASPIRIN, ENTERIC COATED) 81 mg EC tablet Health Maintenance Pneumococcal Vaccine: 50+(2 of 2 - PCV) RSV Vaccine(1 - 1-dose 75+ series) Shingrix Vaccine(3 of 3) Influenza Vaccine(1) Covid-19 Vaccine( season) Advance Directive Discussion@ Review Of Systems Eyes: (-) visual disturbances Neurological: (+) mild memory lapses Psychiatric: (+) anxiety Physical Exam BP 110/68 Pulse 94 Wt 59.1 kg (130 lb 3.2 oz) SpO2 98% BMI 20.70 kg/m? GENERAL: NAD, alert and oriented SKIN: unremarkable, no rash or skin lesions. HEAD: normocephalic EYES: PERRLA, EOMI, conjunctiva clear EARS: Tested peripheral vision, grossly normal both eyes LUNGS: Clear to auscultation bilaterally, no wheezes/rhonchi/rales. HEART: Regular rate and rhythm, no murmurs. No ectopy. EXTREMITIES: Normal, No deformities, No skin discoloration, No edema. NEURO: Awake, alert and oriented x3, cranial nerves II-XII grossly intact, normal gait, no involuntary motions Assessment and Plan 1. Cerebrovascular accident (CVA), unspecified mechanism (HCC) (I63.9) Recent CVA with subsequent rehabilitation. Currently wearing a heart monitor as ordered by neurology to check for potential mini-strokes. - Continue monitoring with heart monitor. - Follow-up with neurology as scheduled. 2. Hypertension, unspecified type (I10) Chronic condition, currently managed. 3. Abdominal aortic aneurysm (AAA) without rupture, unspecified part (I71.40) Stable, under regular surveillance. 4. Driving safety issue (Z91.89) Concerns about driving safety post-CVA. No visual field deficits noted on examination. Patient expresses desire to continue driving locally. - Recommended simulated driving test in [place] within 6 months. - Advised to complete a vision exam at the [facility]. - Provided temporary driving privileges for local driving pending completion of the above requirements. 5. Prothrombin gene mutation (HCC) (D68.52) Chronic condition, currently managed with anticoagulation therapy. Voice recognition software was used to compose this office note. Please excuse any unintended typographical errors. Recording using [employer] (more content not included)... [facility] 09-21-2024 History of Presen t illness Narrative Reason for Visit Driving safety HPI Leo is a 79-year-old male with a history of CAD, abdominal aortic aneurysm, Wernicke's encephalopathy, depression, COPD, HTN, diverticulosis, and prothrombin gene mutation, presenting to discuss a driving evaluation following a recent CVA. Leo was recently admitted to [facility] for a CVA and subsequently underwent rehabilitation. He is seeking to resume driving and is accompanied by his daughter, who is advocating on his behalf. Leo has not driven since the CVA, as he was uncertain if he was permitted to do so. He expresses a desire to drive locally within [place], specifically to places like the [facility] and [facility], and does not wish to drive outside of [place] or on the interstate. He has a long history of safe driving, with no accidents and only one speeding ticket in 1968. Leo's daughter expresses concerns about her father's ability to pass a driving test in an unfamiliar city, as [place] no longer offers driving tests. She believes that driving in an unfamiliar area would make him nervous and anxious, potentially affecting his performance. She also notes that her father has not had any vision abnormalities and is currently wearing a heart monitor ordered by a neurologist to check for mini strokes. He is on anticoagulant therapy and has not consumed alcohol for approximately 12 years. Leo denies any history of KS, DM, or Parkinson's disease. He reports occasional forgetfulness, such as misplacing his wallet, but his daughter notes that this has been a long-standing issue and is not new. Social History Tobacco Use Smoking status: Every Day Current packs/day: 0.50 Average packs/day: 0.5 packs/day for 61.3 years (30.6 ttl pk-yrs) Types: Cigarettes Start date: 06[birth year]09/1964 Smokeless tobacco: Never Tobacco comments: varies day to day--now 0.5PPD or less, usually less Vaping Use Vaping status: Never Used Substance Use Topics Alcohol use: No Alcohol/week: 12.0 standard drinks of alcohol Types: 12 Cans of Beer (12oz) per week Comment: Was discussed with Dr. Rob at pre-op eval 11/19/11 Drug use: No Past medical history, appointments, medications, allergies reviewed. Pertinent Lab/Diagnostic Studies are reviewed and discussed today Current Outpatient Medications: NIFEdipine ER (PROCARDIA XL) 30 mg 24 hr tablet atorvastatin (LIPITOR) 80 mg tablet clopidogrel (PLAVIX) 75 mg tablet QUEtiapine (SEROQUEL) 25 mg tablet sertraline (ZOLOFT) 50 mg tablet ramipril (ALTACE) 10 mg capsule cyanocobalamin (VITAMIN B-12) 1,000 mcg tab OTC PRODUCT aspirin, enteric coated (ASPIRIN, ENTERIC COATED) 81 mg EC tablet Health Maintenance Pneumococcal Vaccine: 50+(2 of 2 - PCV) RSV Vaccine(1 - 1-dose 75+ series) Shingrix Vaccine(3 of 3) Influenza Vaccine(1) Covid-19 Vaccine( season) Advance Directive Discussion@ Review Of Systems Eyes: (-) visual disturbances Neurological: (+) mild memory lapses Psychiatric: (+) anxiety Physical Exam BP 110/68 Pulse 94 Wt 59.1 kg (130 lb 3.2 oz) SpO2 98% BMI 20.70 kg/m GENERAL: NAD, alert and oriented SKIN: unremarkable, no rash or skin lesions. HEAD: normocephalic EYES: PERRLA, EOMI, conjunctiva clear EARS: Tested peripheral vision, grossly normal both eyes LUNGS: Clear to auscultation bilaterally, no wheezes/rhonchi/rales. HEART: Regular rate and rhythm, no murmurs. No ectopy. EXTREMITIES: Normal, No deformities, No skin discoloration, No edema. NEURO: Awake, alert and oriented x3, cranial nerves II-XII grossly intact, normal gait, no involuntary motions Assessment and Plan 1. Cerebrovascular accident (CVA), unspecified mechanism (HCC) (I63.9) Recent CVA with subsequent rehabilitation. Currently wearing a heart monitor as ordered by neurology to check for potential mini-strokes. - Continue monitoring with heart monitor. - Follow-up with neurology as scheduled. 2. Hypertension, unspecified type (I10) Chronic condition, currently managed. 3. Abdominal aortic aneurysm (AAA) without rupture, unspecified part (I71.40) Stable, under regular surveillance. 4. Driving safety issue (Z91.89) Concerns about driving safety post-CVA. No visual field deficits noted on examination. Patient expresses desire to continue driving locally. - Recommended simulated driving test in [place] within 6 months. - Advised to complete a vision exam at the [facility]. - Provided temporary driving privileges for local driving pending completion of the above requirements. 5. Prothrombin gene mutation (HCC) (D68.52) Chronic condition, currently managed with anticoagulation therapy. Voice recognition software was used to compose this office note. Please excuse any unintended typographical errors. Recording using [employer] software for draft documentation of the visit was discussed with the patient/authorized client representative; all questions welcomed and answered. Patient/authorized client representative agreed to proceed Sera Castillo MD documented in this encounter [facility] 09-08-2024 Telephone encounter Note Ruperto PT from [facility] calls and reports that he was supposed to see patient on Friday and was not able to get ahold of patient till Friday or Friday. Ruperto is seeing patient tomorrow for PT which is a delay in care. Ruperto wanting provider aware of this. No call back needed. [facility] 09-08-2024 Miscellaneous Notes Ruperto PT from [facility] calls and reports that he was supposed to see patient on Friday and was not able to get ahold of patient till Friday or Friday. Ruperto is seeing patient tomorrow for PT which is a delay in care. Ruperto wanting provider aware of this. No call back needed. documented in this encounter [facility] 09-08-2024 Note HNO ID: [id number] Author: CHIVO LAY RN Service: ? Author Type: Registered Nurse Type: Progress Notes Filed: 09/08/2024 11:16 Note Text: Transitional Care Management (TCM) Follow-Up Note PCP Update / Actionable Items N/A - No specialty updates needed Patient Source: [id number] ([facility]) Discharge Outreach Summary: Spoke with patient's daughterSuzanne. States patient is doing very well. Denies any new or worsening symptoms. States patient had a follow up with PCP yesterday. Denies any other needs or concerns at this time. Contact: Contact made with patient: Yes Spoke to: Suzanne Cavazos Validation: Validated the person spoken to is actively involved in the patient's care. The patient was identified by Name and Date of . I'd like to get an update on how you're doing since our last phone call. Is now a good time to talk? Yes Symptoms: Are you feeling about the same, better or worse since leaving the hospital? Better Weekly Outreach: 1st Outreach Medications: Do you have any questions about taking your medications, including which medications you should be on, or do you need refills on your medications? No Patient Questions / Concerns: Do you have any questions related to your discharge? No Appointment / TCM Follow-Up: Have you had a follow-up visit with your Primary Care Provider or Specialist since you were discharged? Yes Do you need any assistance with scheduling or changing your follow-up appointments? Patient already has an appointment scheduled EDUCATION: Patient and family educated on issues/questions related to reason for admission, transition of care topics, and follow-up needed upon discharge. Chivo Lay RN September 08, 2024 11:14 AM [facility] 09-08-2024 History of Presen t illness Narrative Transitional Care Management (TCM) Follow-Up Note PCP Update / Actionable Items N/A - No specialty updates needed Patient Source: [id number] ([facility]) Discharge Outreach Summary: Spoke with patient's daughterSuzanne. States patient is doing very well. Denies any new or worsening symptoms. States patient had a follow up with PCP yesterday. Denies any other needs or concerns at this time. Contact: Contact made with patient: Yes Spoke to: Suzanne Cavazos Validation: Validated the person spoken to is actively involved in the patient's care. The patient was identified by Name and Date of . I'd like to get an update on how you're doing since our last phone call. Is now a good time to talk? Yes Symptoms: Are you feeling about the same, better or worse since leaving the hospital? Better Weekly Outreach: 1st Outreach Medications: Do you have any questions about taking your medications, including which medications you should be on, or do you need refills on your medications? No Patient Questions / Concerns: Do you have any questions related to your discharge? No Appointment / TCM Follow-Up: Have you had a follow-up visit with your Primary Care Provider or Specialist since you were discharged? Yes Do you need any assistance with scheduling or changing your follow-up appointments? Patient already has an appointment scheduled EDUCATION: Patient and family educated on issues/questions related to reason for admission, transition of care topics, and follow-up needed upon discharge. Chivo Lay RN September 08, 2024 11:14 AM documented in this encounter [facility] 09-08-2024 Note Patient Outreach ([facility] LEO ANGELO ([id number]) 1945 M Date Time Provider Department 09/08/24 CHIVO LAY During your visit today, we recorded the following information about you: Chivo Lay RN 09/08/2024 11:16 AM Signed Transitional Care Management (TCM) Follow-Up Note PCP Update / Actionable Items N/A - No specialty updates needed Patient Source: [id number] ([facility]) Discharge Outreach Summary: Spoke with patient's daughterSuzanne. States patient is doing very well. Denies any new or worsening symptoms. States patient had a follow up with PCP yesterday. Denies any other needs or concerns at this time. Contact: Contact made with patient: Yes Spoke to: DaughterSuzanne Validation: Validated the person spoken to is actively involved in the patient's care. The patient was identified by Name and Date of . I'd like to get an update on how you're doing since our last phone call. Is now a good time to talk? Yes Symptoms: Are you feeling about the same, better or worse since leaving the hospital? Better Weekly Outreach: 1st Outreach Medications: Do you have any questions about taking your medications, including which medications you should be on, or do you need refills on your medications? No Patient Questions / Concerns: Do you have any questions related to your discharge? No Appointment / TCM Follow-Up: Have you had a follow-up visit with your Primary Care Provider or Specialist since you were discharged? Yes Do you need any assistance with scheduling or changing your follow-up appointments? Patient already has an appointment scheduled EDUCATION: Patient and family educated on issues/questions related to reason for admission, transition of care topics, and follow-up needed upon discharge. Chivo Lay RN September 08, 2024 11:14 AM Allergies As of Date: 09/08/2024 Noted Allergy Reaction SEASONAL ALLERGIES 11/30/2008 Date Reviewed: 09/07/2024 Reviewed by: Elen Shukla LPN - Fully Assessed Reason for Visit: Transition Of Care [4074] Prescriptions as of 09/08/2024 - NIFEdipine ER (PROCARDIA XL) 30 mg 24 hr tablet Take 1 tablet by mouth once daily. - atorvastatin (LIPITOR) 80 mg tablet Take 1 tablet by mouth once daily. - clopidogrel (PLAVIX) 75 mg tablet Take 1 tablet by mouth once daily. - QUEtiapine (SEROQUEL) 25 mg tablet Take 1 tablet by mouth daily at bedtime. - sertraline (ZOLOFT) 50 mg tablet Take 1 tablet by mouth once daily. - ramipril (ALTACE) 10 mg capsule Take 1 capsule by mouth once daily. - cyanocobalamin (VITAMIN B-12) 1,000 mcg tab Take 2,000 mcg by mouth once daily. - OTC PRODUCT Prevagen daily - aspirin, enteric coated (ASPIRIN, ENTERIC COATED) 81 mg EC tablet Take 1 tablet by mouth once daily. Meds Comments as of 06/24/2014: Pt. States he doesn't have med list and is unsure of meds because his prepares them for him. 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] 07/21/2009 Melanocytic Nevus of Trunk [D22.5] 07/21/2009 Solar Lentigo [L81.4] 07/21/2009 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] 07/21/2009 Actinic Damage///Sun-Damaged Skin [L57.8] 07/21/2009 Seborrheic Dermatitis: Central Face [L21.8] 07/21/2009 Other Psoriasis: Sebopsoriasis Central face [L4*07/21/2009 Hip arthritis [M16.10] 09/02/2011 Hypertension [I10] 02/21/2012 Elevated LFTs [R79.89] 02/28/2012 Anxiety [F41.9] 02/28/2012 Alcohol dependence (HCC) [F10.20] 02/28/2012 09/08/2018 Chronic bronchitis (HCC) [J42] 09/08/2018 Hyponatremia [E87.1] 08/24/2013 Vitamin D deficiency [E55.9] 08/24/2013 Aneurysm of ascending aorta (HCC) [I71.21] 01/07/2014 Dysthymia [F34.1] 09/29/2014 Prothrombin gene mutation (HCC) [D68.52] 08/20/2018 Pulmonary embolus (HCC) [I26.99] 08/20/2018 AAA (abdominal aortic aneurysm) without rupture*01/08/2022 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 Author Type: Physician Type: Progress Notes Filed: 09/07/2024 17:31 Note Text: Reason for Visit Hospital discharge follow up HPI Leo is a 79-year-old male, with a history of CAD, AAA, Wernicke's encephalopathy, depression, COPD, HTN, diverticulosis, GERD, and prothrombin gene mutation, presenting for follow-up after a recent stroke. He is accompanied by his daughter, who is providing additional history. Leo was admitted to the hospital from 08/18 to 08/31 for a stroke, followed by 13 days of rehabilitation. The stroke resulted in right-sided weakness and difficulty ambulating, necessitating EMS transport to the hospital. 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 MRI of the brain showed a small acute infarct in the left thalamus and punctate acute infarct in the right cerebellum. At the time of presentation to rehab, Leo was not sleeping well, had poor appetite, and was agitated and paranoid. He was given Seroquel shortly after he arrived on rehab to control his behavior. The family had noted that over the past 3 to 5 years, his cognition had been declining. Although he has a known history of Wernicke's encephalopathy secondary to chronic alcohol abuse in 2015, it is likely that he has coexisting Alzheimer's dementia, as his score on was only a 23 out of a possible 50 points on his brief cognitive assessment. At the time of discharge, he was better with Seroquel and was not having any angry outbursts but he still had paranoia. One important point was that he was unaware of his deficits and he had very poor safety awareness. Although they tried to stop him from the Seroquel, he still needed it, and so he was discharged on it, as he only slept well with 25 milligrams of Seroquel. He is able to make out his way in the home, but in the rehab, he was finding it hard to find his room. Leo reports persistent numbness in the right hand, describing it as feeling like it was out in a snowstorm or a sheet of ice. He also experiences numbness in the right leg but is able to ambulate with caution to avoid falls. He does not use a cane or walker at home, relying on furniture and hand pairing machine operator for support. He has been advised against driving and adheres to this recommendation. He denies alcohol consumption for over 10 years. Recent medication changes include the addition of clopidogrel, sertraline, and quetiapine, and discontinuation of omeprazole. He continues to take aspirin, atorvastatin, nifedipine 30 mg once daily, ramipril, and Mylanta as needed. His daughter manages his medication administration and monitors his adherence. Recent lab results show normal liver function tests, potassium levels, and ferritin levels. He has a history of mild anemia and normal B12 levels. Social History Tobacco Use Smoking status: Every Day Current packs/day: 0.50 Average packs/day: 0.5 packs/day for 61.2 years (30.6 ttl pk-yrs) Types: Cigarettes Start date: [birth year]09/1964 Smokeless tobacco: Never Tobacco comments: varies day to day--now 0.5PPD or less, usually less Vaping Use Vaping status: Never Used Substance Use Topics Alcohol use: No Alcohol/week: 12.0 standard drinks of alcohol Types: 12 Cans of Beer (12oz) per week Comment: Was discussed with Dr. Rob at pre-op eval 11/19/11 Drug use: No Past medical history, appointments, medications, allergies reviewed. Pertinent Lab/Diagnostic Studies are reviewed and discussed today Current Outpatient Medications: ramipril (ALTACE) 10 mg capsule cyanocobalamin (VITAMIN B-12) 1,000 mcg tab OTC PRODUCT aspirin, enteric coated (ASPIRIN, ENTERIC COATED) 81 mg EC tablet NIFEdipine ER (PROCARDIA XL) 30 mg 24 hr tablet atorvastatin (LIPITOR) 80 mg tablet clopidogrel (PLAVIX) 75 mg tablet QUEtiapine (SEROQUEL) 25 mg tablet sertraline (ZOLOFT) 50 mg tablet Health Maintenance Pneumococcal Vaccine: 50+(2 of 2 - PCV) RSV Vaccine(1 - 1-dose 75+ series) Shingrix Vaccine(3 of 3) Influenza Vaccine(1) Covid-19 Vaccine( season) Advance Directive Discussion@ Review Of Systems Ears/Nose/Mouth/Throat: (-) dysphagia Neurological: (+) numbness right upper and lower extremities, (+) dizziness, (+) unsteady gait, (-) speech changes Psychiatric: (+) paranoia Physical Exam BP 119/71 Pulse 87 Ht 168.9 cm (5' 6.5) Wt 59 kg (130 lb) SpO2 96% BMI 20.67 kg/m? GENERAL: NAD, alert and oriented. SKIN: Unremarkable, no rash or skin lesions. HEAD: Normocephalic. EYES: PERRLA, EOMI, conjunctiva clear. EARS: External ears normal, canals clear, TM's normal. NECK: Supple, no lymphadenopathy, normal thyroid, no carotid bruits. LUNGS: Clear to auscultation bilaterally, no wheez (more content not included)... [facility] 09-07-2024 History of Presen t illness Narrative Reason for Visit Hospital discharge follow up IZAIAH Carlin is a 79-year-old male, with a history of CAD, AAA, Wernicke's encephalopathy, depression, COPD, HTN, diverticulosis, GERD, and prothrombin gene mutation, presenting for follow-up after a recent stroke. He is accompanied by his daughter, who is providing additional history. Leo was admitted to the hospital from 08/18 to 08/31 for a stroke, followed by 13 days of rehabilitation. The stroke resulted in right-sided weakness and difficulty ambulating, necessitating EMS transport to the hospital. 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 MRI of the brain showed a small acute infarct in the left thalamus and punctate acute infarct in the right cerebellum. At the time of presentation to rehab, Leo was not sleeping well, had poor appetite, and was agitated and paranoid. He was given Seroquel shortly after he arrived on rehab to control his behavior. The family had noted that over the past 3 to 5 years, his cognition had been declining. Although he has a known history of Wernicke's encephalopathy secondary to chronic alcohol abuse in 2015, it is likely that he has coexisting Alzheimer's dementia, as his score on was only a 23 out of a possible 50 points on his brief cognitive assessment. At the time of discharge, he was better with Seroquel and was not having any angry outbursts but he still had paranoia. One important point was that he was unaware of his deficits and he had very poor safety awareness. Although they tried to stop him from the Seroquel, he still needed it, and so he was discharged on it, as he only slept well with 25 milligrams of Seroquel. He is able to make out his way in the home, but in the rehab, he was finding it hard to find his room. Leo reports persistent numbness in the right hand, describing it as feeling like it was out in a snowstorm or a sheet of ice. He also experiences numbness in the right leg but is able to ambulate with caution to avoid falls. He does not use a cane or walker at home, relying on furniture and hand pairing machine operator for support. He has been advised against driving and adheres to this recommendation. He denies alcohol consumption for over 10 years. Recent medication changes include the addition of clopidogrel, sertraline, and quetiapine, and discontinuation of omeprazole. He continues to take aspirin, atorvastatin, nifedipine 30 mg once daily, ramipril, and Mylanta as needed. His daughter manages his medication administration and monitors his adherence. Recent lab results show normal liver function tests, potassium levels, and ferritin levels. He has a history of mild anemia and normal B12 levels. Social History Tobacco Use Smoking status: Every Day Current packs/day: 0.50 Average packs/day: 0.5 packs/day for 61.2 years (30.6 ttl pk-yrs) Types: Cigarettes Start date: 06[birth year]09/1964 Smokeless tobacco: Never Tobacco comments: varies day to day--now 0.5PPD or less, usually less Vaping Use Vaping status: Never Used Substance Use Topics Alcohol use: No Alcohol/week: 12.0 standard drinks of alcohol Types: 12 Cans of Beer (12oz) per week Comment: Was discussed with Dr. Rob at pre-op eval 11/19/11 Drug use: No Past medical history, appointments, medications, allergies reviewed. Pertinent Lab/Diagnostic Studies are reviewed and discussed today Current Outpatient Medications: ramipril (ALTACE) 10 mg capsule cyanocobalamin (VITAMIN B-12) 1,000 mcg tab OTC PRODUCT aspirin, enteric coated (ASPIRIN, ENTERIC COATED) 81 mg EC tablet NIFEdipine ER (PROCARDIA XL) 30 mg 24 hr tablet atorvastatin (LIPITOR) 80 mg tablet clopidogrel (PLAVIX) 75 mg tablet QUEtiapine (SEROQUEL) 25 mg tablet sertraline (ZOLOFT) 50 mg tablet Health Maintenance Pneumococcal Vaccine: 50+(2 of 2 - PCV) RSV Vaccine(1 - 1-dose 75+ series) Shingrix Vaccine(3 of 3) Influenza Vaccine(1) Covid-19 Vaccine( - season) Advance Directive Discussion@ Review Of Systems Ears/Nose/Mouth/Throat: (-) dysphagia Neurological: (+) numbness right upper and lower extremities, (+) dizziness, (+) unsteady gait, (-) speech changes Psychiatric: (+) paranoia Physical Exam BP 119/71 Pulse 87 Ht 168.9 cm (5' 6.5) Wt 59 kg (130 lb) SpO2 96% BMI 20.67 kg/m GENERAL: NAD, alert and oriented. SKIN: Unremarkable, no rash or skin lesions. HEAD: Normocephalic. EYES: PERRLA, EOMI, conjunctiva clear. EARS: External ears normal, canals clear, TM's normal. NECK: Supple, no lymphadenopathy, normal thyroid, no carotid bruits. LUNGS: Clear to auscultation bilaterally, no wheezes/rhonchi/rales. HEART: Regular rate and rhythm, no murmurs. No ectopy. EXTREMITIES: Normal, no deformities, no skin discoloration, no edema. NEURO: Awake, alert and oriented x3, cranial nerves II-XII grossly intact, normal gait, no involuntary motions. 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 Chronic bronchitis, unspecified chronic bronchitis type (HCC) (J42) Clinically stable. - Continue current management. 2. 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 - Continue clopidogrel and aspirin therapy. 3. Hypertension, unspecified type (I10) Well-controlled on current medication regimen. Recent BP reading was 119/71 mmHg. - Continue nifedipine 30 mg daily and ramipril. - Updated nifedipine prescription to 30 mg daily, 90-day supply, sent to [facility]. 4. Abdominal aortic aneurysm (AAA) without rupture, unspecified part (I71.40) Under regular follow-up with vascular surgery. - Continue monitoring with vascular surgery. 5. Tobacco use disorder (F17.200) Patient continues to smoke. - Advised smoking cessation. 6. Prothrombin gene mutation ([facility]) (D68.52) Contributing factor to thrombotic events. - Continue anticoagulation therapy with clopidogrel and aspirin. 7. Hospital discharge follow-up (Z09) Recent hospitalization from 08/18 to 08/31 for acute stroke. MRI showed small acute infarct in the left thalamus and punctate acute infarct in the right cerebellum. Patient exhibits right-sided weakness and numbness, with difficulty walking. Cognitive decline noted, with a score of 23/50 on brief cognitive assessment. Currently on sertraline and quetiapine for mood and behavior management. - Continue sertraline and quetiapine as prescribed. - Prescriptions for atorvastatin 80 mg, clopidogrel, quetiapine, and sertraline sent to [facility]. - Discontinue vitamin B12 supplementation temporarily. - Advised use of a cane for ambulation outside the home. - Follow-up with neurology next week. - Scheduled follow-up appointment in 3 months. Voice recognition software was used to compose this office note. Please excuse any unintended typographical errors. The patient consented to the use of ambient AI software for draft documentation of the visit consistent with [facility] s Notice of Privacy Practices. Sera Castillo MD documented in this encounter [facility] 09-03-2024 Telephone encounter Note Ok with plan. Can discuss further at hospital follow up. Thank you Mari Mcclelland APRN.CNP [facility] 09-03-2024 Miscellaneous Notes Ok with plan. Can discuss further at hospital follow up. Thank you Mari Mcclelland APRN.CNP Richelle calling from [facility] to report plan of care for patient and senior care will visit patient 1 time a week for 2 weeks. Patient was sent home from hospital with orders for senior care, physical therapy, occupational therapy, speech therapy, and bilingual social worker. Patient is refusing occupational therapy and speech therapy. Please review and Advise, Richelle Taylor RN documented in this encounter [facility] 09-02-2024 Telephone encounter Note Richelle calling from [facility] to report plan of care for patient and senior care will visit patient 1 time a week for 2 weeks. Patient was sent home from hospital with orders for senior care, physical therapy, occupational therapy, speech therapy, and bilingual social worker. Patient is refusing occupational therapy and speech therapy. Please review and Advise, Richelle Taylor RN [facility] 09-01-2024 Note HNO ID: [id number] Author: CHIVO LAY RN Service: ? Author Type: Registered Nurse Type: Progress Notes Filed: 09/01/2024 10:02 Note Text: Transition Care Management (TCM) Initial Outreach PCP Update / Actionable Items HRTIC TCM Home Visit Referral Source of Stratification: TCM [facility] Hospital Admission Status: Discharged Readmission Risk Score: N/A Patient's zip code: [address] Is zip code within program service area: Y Patient meets program referral criteria: No Patient does not qualify for High Risk TCM Home Visit program due to: Readmission Risk Score does not meet criteria Disposition: Patient does not qualify for HRTIC, will provide TCM outreach follow-up for 30-days Patient Source: [id number] (OON) Discharge Outreach Summary: Spoke with patient's daughter Suzanne. States patient is doing well. Denies any new or worsening symptoms. Partial medication review completed. Has phone number for home health, will reach out. Aware of upcoming appointments. Denies any social work or behavioral health needs. Denies any other needs or concerns at this time. ------ New quetiapine 25 mg Tablet 25 mg PO 2100 Qty: 45 0RF Rx Instructions: Take 1 tab at bedtime every night. If agitated during the day can give 25 mg one more time a day as needed. atorvastatin 80 mg Tablet 80 mg PO QHS Qty: 30 0RF acetaminophen 325 mg Tablet 650 mg PO Q6H PRN PRN (Reason: Pain Score 1-10) Qty: 1 0RF sertraline 50 mg Tablet 50 mg PO DAILY Qty: 30 0RF Mylanta Tonight 800-270-80 mg/10 mL suspension 15 ml PO Q6H PRN PRN (Reason: heartburn) Qty: 355 (more content not included).. Patient discharged from [facility] Discharge date: 08/31/2024 Admitted for: Post stroke debility Readmission Risk: N/A Value-Based Contract: ACO Contact: Contact made with patient: Yes Hi, my name is Chivo Lay RN and I am calling from the [facility] on behalf of your Primary Care Provider, Sera Castillo MD. I understand you were recently in the hospital, so I am calling to check in with you to ensure you are feeling well now that you are home. May I ask you a few questions related to your hospital stay and well-being? Yes Spoke to: DaughterSuzanne Validation: Validated the person spoken to is actively involved in the patient's care. The patient was identified by Name and Date of . Symptoms: Are you feeling about the same, better or worse since leaving the hospital? Better Medications: Do you have any questions about taking your medications, including which medications you should be on, or do you need refills on your medications? Yes Discussed the patient's questions and/or concerns. If applicable, the appropriate team/provider updated. Medication Review: Partial mediation review completed, per patient preference Discharge Instructions: Your Discharge Instructions / After Visit Summary (AVS) are important in guiding you through the recovery process. Do you have any questions related to your discharge instructions? Yes Discussed the patient's questions and/or concerns. If applicable, the appropriate Team/Provider updated in FYI box. Home Care: Were you discharged with home care? Yes Has your Home Care Agency contacted you? Yes Equipment: Do you have all the necessary equipment and supplies needed at your home? Not applicable Social: Your mental health is as important to us as your physical health. Would you mind answering a few questions on this topic? Yes On the Storyboard review: Food Insecurity, Transportation, Depression, Housing, and Financial Strain: Complete any SDOHs, listed above, if not addressed in the past 3 months. If all SDOHs, listed above, have been addressed within the last 3 months, confirm responses and update any SDOHs that have changed. Action Taken: No needs verbalized. No action required. Follow-Up Appointment: [Appointment / TCM Follow-up within 14 days] I would like to help you schedule a hospital follow-up virtual or telephone visit with your PCP. This is a great way for you to connect with your provider to ensure you have safely transitioned home. If you are agreeable, I will send your request to a layer off who will contact and assist you with that appointment. This will give you an opportunity to ask any questions or address any concerns you may have with your PCP. Inform the patient that if they have any questions or concerns prior to that appointment, to call their PCP's office right away. Appointment Action: No action required; patient already has appointment scheduled. Education details: Patient and family educated on issues/questions related to reason for admission, transition of care topics, and follow-up needed upon discharge. Chivo Lay RN September 01, 2024 9:49 AM [facility] 09-01-2024 History of Presen t illness Narrative Transition Care Management (TCM) Initial Outreach PCP Update / Actionable Items HRTIC TCM Home Visit Referral Source of Stratification: TCM [facility] Hospital Admission Status: Discharged Readmission Risk Score: N/A Patient's zip code: [address] Is zip code within program service area: Y Patient meets program referral criteria: No Patient does not qualify for High Risk TCM Home Visit program due to: Readmission Risk Score does not meet criteria Disposition: Patient does not qualify for HRTIC, will provide TCM outreach follow-up for 30-days Patient Source: [id number] (OON) Discharge Outreach Summary: Spoke with patient's daughter Suzanne. States patient is doing well. Denies any new or worsening symptoms. Partial medication review completed. Has phone number for home health, will reach out. Aware of upcoming appointments. Denies any social work or behavioral health needs. Denies any other needs or concerns at this time. New quetiapine 25 mg Tablet 25 mg PO 2100 Qty: 45 0RF Rx Instructions: Take 1 tab at bedtime every night. If agitated during the day can give 25 mg one more time a day as needed. atorvastatin 80 mg Tablet 80 mg PO QHS Qty: 30 0RF acetaminophen 325 mg Tablet 650 mg PO Q6H PRN PRN (Reason: Pain Score 1-10) Qty: 1 0RF sertraline 50 mg Tablet 50 mg PO DAILY Qty: 30 0RF Mylanta Tonight 800-270-80 mg/10 mL suspension 15 ml PO Q6H PRN PRN (Reason: heartburn) Qty: 355 (more content not included).. Patient discharged from [facility] Discharge date: 08/31/2024 Admitted for: Post stroke debility Readmission Risk: N/A Value-Based Contract: ACO Contact: Contact made with patient: Yes Hi, my name is Chivo Lay RN and I am calling from the [facility] on behalf of your Primary Care Provider, Sera Castillo MD. I understand you were recently in the hospital, so I am calling to check in with you to ensure you are feeling well now that you are home. May I ask you a few questions related to your hospital stay and well-being? Yes Spoke to: DaughterSuzanne Validation: Validated the person spoken to is actively involved in the patient's care. The patient was identified by Name and Date of . Symptoms: Are you feeling about the same, better or worse since leaving the hospital? Better Medications: Do you have any questions about taking your medications, including which medications you should be on, or do you need refills on your medications? Yes Discussed the patient's questions and/or concerns. If applicable, the appropriate team/provider updated. Medication Review: Partial mediation review completed, per patient preference Discharge Instructions: Your Discharge Instructions / After Visit Summary (AVS) are important in guiding you through the recovery process. Do you have any questions related to your discharge instructions? Yes Discussed the patient's questions and/or concerns. If applicable, the appropriate Team/Provider updated in FYI box. Home Care: Were you discharged with home care? Yes Has your Home Care Agency contacted you? Yes Equipment: Do you have all the necessary equipment and supplies needed at your home? Not applicable Social: Your mental health is as important to us as your physical health. Would you mind answering a few questions on this topic? Yes On the Storyboard review: Food Insecurity, Transportation, Depression, Housing, and Financial Strain: Complete any SDOHs, listed above, if not addressed in the past 3 months. If all SDOHs, listed above, have been addressed within the last 3 months, confirm responses and update any SDOHs that have changed. Action Taken: No needs verbalized. No action required. Follow-Up Appointment: [Appointment / TCM Follow-up within 14 days] I would like to help you schedule a hospital follow-up virtual or telephone visit with your PCP. This is a great way for you to connect with your provider to ensure you have safely transitioned home. If you are agreeable, I will send your request to a layer off who will contact and assist you with that appointment. This will give you an opportunity to ask any questions or address any concerns you may have with your PCP. Inform the patient that if they have any questions or concerns prior to that appointment, to call their PCP's office right away. Appointment Action: No action required; patient already has appointment scheduled. Education details: Patient and family educated on issues/questions related to reason for admission, transition of care topics, and follow-up needed upon discharge. Chivo Lay RN September 01, 2024 9:49 AM documented in this encounter [facility] 09-01-2024 Telephone encounter Note Phoned Trudy and hal detailed message on voicemail with orders from Mari Mcclelland NP. [facility] 09-01-2024 Miscellaneous Notes Phoned Charles detailed message on voicemail with orders from Mari Mcclelland NP. Agreeable to orders. Will discuss further at hospital follow up. Thank you Mari Mcclelland APRN.COMMERCIAL [employer]OD INSTRUCTOR Trudy- [facility] HH- reports pt was discharged today from [facility] rehab with orders for SN PT OT SW. Asking if pcp agreeable to follow for orders. Please phone Trudy with verbal documented in this encounter [facility] 09-01-2024 Telephone encounter Note Agreeable to orders. Will discuss further at hospital follow up. Thank you Mari Mcclelland APRN.COMMERCIAL FOOD INSTRUCTOR [facility] 09-01-2024 Note Patient Outreach ([facility] LEO ANGEOL ([id number]) 1945 M Date Time Provider Department 09/01/24 CHIVO LAYDavid During your visit today, we recorded the following information about you: Chivo Lay, RN 09/01/2024 10:02 AM Signed Transition Care Management (TCM) Initial Outreach PCP Update / Actionable Items HRTIC TCM Home Visit Referral Source of Stratification: TCM HUB Hospital Admission Status: Discharged Readmission Risk Score: N/A Patient's zip code: [address] Is zip code within program service area: Y Patient meets program referral criteria: No Patient does not qualify for High Risk TCM Home Visit program due to: Readmission Risk Score does not meet criteria Disposition: Patient does not qualify for HRTIC, will provide TCM outreach follow-up for 30-days Patient Source: [id number] ([facility]) Discharge Outreach Summary: Spoke with patient's daughter Suzanne. States patient is doing well. Denies any new or worsening symptoms. Partial medication review completed. Has phone number for home health, will reach out. Aware of upcoming appointments. Denies any social work or behavioral health needs. Denies any other needs or concerns at this time. ------- New quetiapine 25 mg Tablet 25 mg PO 2100 Qty: 45 0RF Rx Instructions: Take 1 tab at bedtime every night. If agitated during the day can give 25 mg one more time a day as needed. atorvastatin 80 mg Tablet 80 mg PO QHS Qty: 30 0RF acetaminophen 325 mg Tablet 650 mg PO Q6H PRN PRN (Reason: Pain Score 1-10) Qty: 1 0RF sertraline 50 mg Tablet 50 mg PO DAILY Qty: 30 0RF Mylanta Tonight 800-270-80 mg/10 mL suspension 15 ml PO Q6H PRN PRN (Reason: heartburn) Qty: 355 (more content not included).. Patient discharged from [facility] Discharge date: 08/31/2024 Admitted for: Post stroke debility Readmission Risk: N/A Value-Based Contract: ACO Contact: Contact made with patient: Yes Hi, my name is Chivo Lay RN and I am calling from the [facility] on behalf of your Primary Care Provider, Sera Castillo MD. I understand you were recently in the hospital, so I am calling to check in with you to ensure you are feeling well now that you are home. May I ask you a few questions related to your hospital stay and well-being? Yes Spoke to: DaughterSuzanne Validation: Validated the person spoken to is actively involved in the patient's care. The patient was identified by Name and Date of . Symptoms: Are you feeling about the same, better or worse since leaving the hospital? Better Medications: Do you have any questions about taking your medications, including which medications you should be on, or do you need refills on your medications? Yes Discussed the patient's questions and/or concerns. If applicable, the appropriate team/provider updated. Medication Review: Partial mediation review completed, per patient preference Discharge Instructions: Your Discharge Instructions / After Visit Summary (AVS) are important in guiding you through the recovery process. Do you have any questions related to your discharge instructions? Yes Discussed the patient's questions and/or concerns. If applicable, the appropriate Team/Provider updated in FYI box. Home Care: Were you discharged with home care? Yes Has your Home Care Agency contacted you? Yes Equipment: Do you have all the necessary equipment and supplies needed at your home? Not applicable Social: Your mental health is as important to us as your physical health. Would you mind answering a few questions on this topic? Yes On the Storyboard review: Food Insecurity, Transportation, Depression, Housing, and Financial Strain: Complete any SDOHs, listed above, if not addressed in the past 3 months. If all SDOHs, listed above, have been addressed within the last 3 months, confirm responses and update any SDOHs that have changed. Action Taken: No needs verbalized. No action required. Follow-Up Appointment: [Appointment / TCM Follow-up within 14 days] I would like to help you schedule a hospital follow-up virtual or telephone visit with your PCP. This is a great way for you to connect with your provider to ensure you have safely transitioned home. If you are agreeable, I will send your request to a layer off who will contact and assist you with that appointment. This will give you an opportunity to ask any questions or address any concerns you may have with your PCP. Inform the patient that if they have any questions or concerns prior to that appointment, to call their PCP's office right away. Appointment Action: No action required; patient already has appointment scheduled. Education details: Patient and family educated on issu (more content not included)... [facility] 08-31-2024 Telephone encounter Note [facility]- reports pt was discharged today from [facility] rehab with orders for SN PT OT SW. Asking if pcp agreeable to follow for orders. Please phone Trudy with verbal [facility] 08-31-2024 Progress note [facility] 08-31-2024 Discharge summary [facility] 08-31-2024 Discharge summary Note Date/Time August 31, 2024 11:49am [facility] Medical Records Department [address] [place] [address] Discharge Summary 08/31/24 0945 MR#: [id number] Acct: [id number] Name: LEO ANGELO Rep #:[id number] : 1945 79 From: Elen Muñoz DO PCP: Dr. Sera Castillo MD Status:ADM I N Location: [place] [address] Providers Date of Admission: 08/18/24 Date of Discharge: 08/31/24 Primary Care Physician: Dr. Sera Castillo MD Consultations 08/31/24 08:35 Consult: Hospice / Palliative Care Routine Consulting Provider: [facility] Reason for Consult: PALLIATIVE: stroke, Wernickes Encephalopathy, COPD EMERGENT Consult: No MD Notified: Yes Date Notified: 08/31/24 Time Notified: 08:35 Method of Notification: Text Reason For Visit: STROKE Diagnosis Discharge Diagnosis (1) Physical debility: Status: Acute Code(s): R53.81 - Other malaise (2) Acute cerebrovascular accident (CVA): Status: Resolved Code(s): I63.9 - Cerebral infarction, unspecified (3) Cognitive dysfunction: Status: Acute Code(s): F09 - Unspecified mental disorder due to known physiological condition (4) Wernickes encephalopathy: Status: Acute Code(s): E51.2 - Wernicke's encephalopathy (5) History of alcoholism: Status: Acute Code(s): F10.21 - Alcohol dependence, in remission (6) Oropharyngeal dysphagia: Status: Acute Code(s): R13.12 - Dysphagia, oropharyngeal phase (7) Right hemiparesis: Status: Acute Code(s): G81.91 - Hemiplegia, unspecified affecting right dominant side (8) Paresthesias: Status: Acute Code(s): R20.2 - Paresthesia of skin (9) Ataxia: Status: Acute Code(s): R27.0 - Ataxia, unspecified (10) Facial droop: Status: Acute Code(s): R29.810 - Facial weakness (11) Normochromic normocytic anemia: Status: Acute Code(s): D64.9 - Anemia, unspecified (12) History of depression: Status: Chronic Code(s): Z86.59 - Personal history of other mental and behavioral disorders (13) COPD (chronic obstructive pulmonary disease): Status: Chronic Code(s): J44.9 - Chronic obstructive pulmonary disease, unspecified Qualifiers: COPD type: unspecified COPD Qualified Code(s): J44.9 - Chronic obstructive pulmonary disease, unspecified (14) HTN (hypertension): Status: Chronic Code(s): I10 - Essential (primary) hypertension Qualifiers: Hypertension type: primary hypertension Qualified Code(s): I10 - Essential (primary) hypertension (15) Hyperlipidemia: Status: Chronic Code(s): E78.5 - Hyperlipidemia, unspecified Qualifiers: Hyperlipidemia type: unspecified Qualified Code(s): E78.5 - Hyperlipidemia, unspecified (16) Tobacco abuse: Status: Inactive Code(s): Z72.0 - Tobacco use (17) Prothrombin gene mutation: Status: Chronic Code(s): D68.52 - Prothrombin gene mutation (18) Nonobstructive atherosclerosis of coronary artery: Status: Chronic Code(s): I25.10 - Atherosclerotic heart disease of [place] coronary artery without angina pectoris (19) Thoracic aortic aneurysm (TAA): Status: Chronic Code(s): I71.2 - Thoracic aortic aneurysm, without rupture Qualifiers: Presence of rupture: without rupture Thoracic aorta location: unspecified Qualified Code(s): I71.20 - Thoracic aortic aneurysm, without rupture, unspecified (20) AAA (abdominal aortic aneurysm) without rupture: Status: Chronic Code(s): I71.4 - Abdominal aortic aneurysm, without rupture Qualifiers: Abdominal aorta location: unspecified Qualified Code(s): I71.40 - Abdominal aortic aneurysm, without rupture, unspecified (21) 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 Code(s): I72.8 - Aneurysm of other specified arteries (22) Diverticulosis: Status: Chronic Code(s): K57.90 - Diverticulosis of intestine, part unspecified, without perforation or abscess without bleeding (23) GERD (gastroesophageal reflux disease): Status: Acute Code(s): K21.9 - Gastro-esophageal reflux disease without esophagitis Qualifiers: Esophagitis presence: without esophagitis Qualified Code(s): K21.9 - Gastro-esophageal reflux disease without esophagitis (24) Carotid stenosis: Status: Inactive Code(s): I65.29 - Occlusion and stenosis of unspecified carotid artery Qualifiers: Laterality: bilateral Qualified Code(s): I65.23 - Occlusion and stenosis of bilateral carotid arteries (25) Psychomotor agitation: Status: Acute Code(s): R45.1 - Restlessness and agitation Plan 1. Continue therapy 2. 25 to Seroquel p.o. now. 3. Increase the at bedtime dose to 25 mg once again. He failed trying to wean him down and had recurrent agitation, increased paranoia and did not sleep well last night. Medications at Discharge Home Medications acetaminophen 325 mg tablet 650 mg (2 x 325 mg) PO Q6H PRN PRN Pain Score 1-10 #1 TAB 08/30/24 aspirin 81 mg chewable tablet 81 mg PO DAILY heart health #90 tabs 08/30/24 atorvastatin 80 mg tablet 80 mg PO QHS #30 tabs 08/30/24 calcium carb 800 mg-magnes hydrox 270 mg-simeth 80 mg/10 mL oral susp (Mylanta Tonight) 15 ml PO Q6H PRN PRN heartburn #355 mL 08/30/24 clopidogrel 75 mg tablet 75 mg PO DAILY anticoag #30 tabs 08/30/24 nifedipine 30 mg tablet,extended release 24 hr 30 mg PO DAILY BP #30 tabs 08/30/24 quetiapine 25 mg tablet 25 mg PO 2100 #45 tabs 08/30/24 ramipril 10 mg capsule 10 mg PO DAILY BP #30 caps 08/30/24 sertraline 50 mg tablet 50 mg PO DAILY #30 tabs 08/30/24 Hospital Course Operations None Summary of Care Provided Minutes Spent on Discharge: 42 Hospital Course: LEO ANGELO, is an 79 YO M with a past medical history of prothrombin gene mutation (not on any anticoagulation), ongoing tobacco dependence, coronary artery disease, thoracic aortic aneurysm, hyperlipidemia, aneurysm of the right subclavian artery, Wernicke Korsakoff syndrome, remote alcoholism (quit drinkingin 2014), depression, COPD, hypertension, diverticulosis, GERD and an abdominal aortic aneurysm without rupture (he follows at [facility] for aneurysms). He presentedto the ED at [facility] on 08/17/2024 complaining of right-sided weakness. He was also having difficulty with ambulation. The last known well was approximately 8:30 PM the previous day. A stat noncontrast CT brain showed extensive periventricular white matter changes with mildly prominent ventricles and sulci. There was also bifrontal volume loss noted. There was no definitiveacute intracranial hemorrhage, mass effect or midline shift. CTA of the head and neck showed acute basilar artery thrombosis, right vertebral artery occlusion, partial thrombosis of the right subclavian artery, greater than 70% stenosis within the left proximal ICA and approximately 50% stenosis in the right proximal ICA. Tele-neurology was consulted. [facility] teleneurology was consulted. The neurologist did not feel the patient would need transfer to [facility] for intervention. The patient was outside the window for TNK. Neurology recommended follow-up with vascular surgery as an outpatient for left carotid stenosis. He is chronically followed at [facility] for the aneurysms. He was admittedto the hospital on the hospitalist service. He was loaded with aspirin and clopidogrel in the emergency department. He was already taking atorvastatin 40 mg at presentation to the hospital but, the LDL was 85 and so the dose was increased to 80 mg. MRI of the brain, carotid ultrasound, echocardiogram and therapy evaluation was ordered. The MRI showed a small acute infarct in the left thalamus and punctate acute infarcts in the right cerebellum. The carotid ultrasound showed 50 to 69% stenosis of the right and the left extracranial internal carotid arteries. Echocardiogram showed an ejection fraction of 65% with no diastolic dysfunction and no regional wall motion abnormalities. The right ventricle was normal. The left and right atria were of normal size with no Doppler evidence of an atrial septal defect. There was no significant valvular heart disease. He was seen by PT/OT/ST and acute rehab was recommended at [facility]. At the time of presentation to rehab he was not sleeping at night and had poor appetite and intake. He was quite agitated and paranoid. We had to give Seroquel shortly after he arrived on rehab to control behavior. Family related that over the past 3-5 years his mentation had been declining. He has a known history of Wernicke's encephalopathy secondary to chronic alcohol abuse in the past. I suspect he also has co-existing Alzheimer's dementia (there is a hx in his family). They also reported that he has been increasingly irritable and having difficulty sleeping even prior to the stroke. Seroquel 25 mg was orderedat HS. and EKG was obtained while on Seroquel and the QT interval was within normal limits. He had a left anterior hemiblock. He has a hx of depression andwas not on an antidepressant at arrival to rehab. He had sx of depression and he was started on 50 mg of Sertraline daily. He has tolerated this with no adverse side effects. With the Seroquel he began sleeping through the night andwas not having angry outbursts. He still had paranoia. He was cooperative withtherapy but, did not see the point. He was unaware of his deficits and had poor safety awareness. Short term memory was very poor. He scored only 23 out of a possible 50 points on his brief cognitive assessment (BCAT). He had moderate oropharyngeal dysphagia but, was able to consume regular textures and thin liquids. Priot to DC he scored 25/30 on the COG LOG....a significant improvement. Prior to DC we attempted to wean Seroquel. He got 1 dose of 12.5 mg and he did not sleep well, was very agitated and paranoid in the AM and calling his family to tell them he was being held prisoner. We had to give him a dose of Seroquel 25 mg that morning to control behavior. The dose was increased to 25 mg at HS again and he is now sleeping well again. I think the Sertraline is helping. At the time of DC he is pleasant and has a more + outlook. He is not agitated and he thanks the staff now when he sees them and they do something for him. Hypotension was a problem early in the admission andwe had to give IV fluids for orthostasis. Oral fluid intake is still fair at best but, he is not lightheaded and kidney function is stable. At the time of Dc the HGB is stable at 12.2. Iron studies were checked and they were not consistent with iron deficiency. B12 and folate were within normal limits and the TSH was 1.9. Creatinine at the time of discharge is 0.8 with a BUN of 25 and the creatinine has been stable. Magnesium is 2 and the phosphorus is within normal limits. Hemoglobin A1c is 5.9% which is consistent with glucose intolerance/prediabetes. Leo did well with therapy and improved significantly while on rehab. His modified Starke score at admission to rehab was 4 and it is still currently 4 but he is now ambulating with a straight cane up to 700 feet on various surfacesat contact-guard assist. He sometimes carries the cane and has to be reminded to use the cane to aid with balance. He is able to do 13 sit to stands in 30 seconds and he can ascend/descend 20 steps with 2 handrails at light contact-guard assist. He is independent with eating and standby assist for grooming. He is supervision/set up with bathing, upper body dressing, lower body dressing and toileting. He is standby assist for toilet transfer and for tub/shower transfer. Leo is still not able to find his room when ambulating in the garner on the rehab floor. 30/12 supervision was recommended at [facility]. HHC with [facility] was arrangedby the prior to [facility]. Paperwork was completed to have his drivers license suspended for progressive cognitive deficits due to Wernicke's Encephalopathy and suspected coexisting Alzheimer's disease which runs in his family. Appts were made for him to follow up with Dr. Castillo (PCP), Dr. Enzo Marina (vascular surgery) and Apryl Claudio NP (neurology). Physical Exam Const alert Constitutional Narrative: Appropriate, making good eye contact. He is calm and not agitated. Making goodeye contact with me and thanked me for stopping to see him. General Appearance: comfortable and well kempt HEENT head/scalp atraumatic HEENT Narrative: Mucous membranes are dry. No evidence of thrush. Tongue deviated to the left at admission to rehab but today is is on the midline. Eyes PERRL, EOMs intact bilaterally, conjunctivae normal and no scleral icterus Eyes Narrative: No discharge from the eyes. General Eye: normal appearance of both eyes and normal light reflex Neck supple, No nodes and no carotid bruits General: trachea midline Chest Chest: symmetrical chest wall rise Resp normal respiratory effort Resp Narrative: Scattered expiratory wheezing. No cough with deep breathing. No crackles. Nottachypneic and has no conversational dyspnea. No dyspnea with exertion. Wheezing persists despite fluticasone/Salmeterol and the inhaler. He has been prescribed inhalers in the past but, will not use them at home. Effort and Inspection: able to speak in complete sentences; Negative for tachypneic Cardio regular rate, regular rhythm, no murmurs, no rub and no gallops Cardio Narrative: No ectopy GI normal to inspection, nondistended, normoactive bowel sounds, soft to palpation,non-tender and no bruits GI Narrative: I can feel the aorta pulsate through the abd wall....he is thin but, there are no bruits. He has no evidence of emboli in the toes and he denies leg pain. no CVA tenderness Narrative: not incontinent of urine or stool Extremity no calf tenderness General Extremity: Negative for edema Skin Rashes: no rashes Wounds: Negative for wounds noted Neuro Neuro Narrative: Trace R facial droop.....can not see as many teeth on the R when he smiles. Speech projects well and is crisp, much improved over admission. He was better able to cooperate with exam at [facility]........he had a very difficult time following commands at admission. No visual field cuts, no extinction. He is alert and oriented x 3. Psych cooperative Psych Narrative: Sleeping well at night. Seroquel has been effective in controlling agitation and insomnia. Very poor short term memory. Does not recognize how many deficits he has. Still impulsive. Tolerating Sertraline with no adverse side effects. Appearance: appropriate Attitude: No agitated Weight / BMI Weight Weight: 129 lb 13.636 oz Body Mass Index (BMI) 20.3 ABG / Lab / Microbiology Data 08/26/24 10:05 08/27/24 05:50 Microbiology: Microbiology 08/20/24 11:55 Stool Stool Occult Blood (SHAWANDA) - Final Occult Blood Positive Indicators for Scoring Admitted with or Primary Diagnosis of CVA/Stroke: Yes Hx of CVA/Stroke: Yes Modified Starke Score MRS Score at time of Evaluation: 4-Moderate/severe disability NIHSS NIHSS 1a. Level of Consciousness: Alert; keenly responsive 1b. LOC Questions: Answers BOTH questions correctly. 1c. LOC Commands: Performs both tasks correctly. 2. Best Gaze: Normal 3. Visual: No visual loss 4. Facial Palsy: Minor paralysis (flattened nasolabial fold, asymmetry on smiling) 5a. Left Arm: No drift; arm holds 90 (or 45) degrees for full 10 seconds 5b. Right Arm: No drift; arm holds 90 (or 45) degrees for full 10 seconds 6a. Left Leg: No drift; leg holds 30-degree position for full 5 seconds 6b. Right Leg: No drift; leg holds 30-degree position for full 5 seconds 7. Limb Ataxia: Absent 9. Best Language: Tpwn-sh-eknaptsg aphasia; 10. Dysarthria: Normal 11. Extinction and Inattention: No abnormality Total: 2 (Down from 5 at admission to rehab. ) Stroke Questions Stroke Team Activated: No D/C Instructions Discharge Diet: No restrictions Weight Bearing Status: Full weight bearing Call your doctor if you observe: Fever of 101 or Higher, Inability to urinate, Inability to have a bowel movement, Shortness of breath, Dizziness, Fainting spells, Swelling in the ankles, Chest pain, Increased palpitations (irregular heartbeat), Calf discomfort and - (STROKE symptoms: facial droop, slurred speech, inability to get words out, weakness on 1 side of the body and not the other, numbness on 1 side of the body and not the other, inability to maintain your balance sitting or standing, vertigo. ) DC O2, CPAP, BIPAP Needs RN Home O2 qualification: 2 No Data to Display PSN CPAP & BiPAP: BiPAP & CPAP Settings per PSN Fraction of Inspired Oxygen ( 08/19/24 22:00 FIO2) Home O2 Discharge instructions: No Pending Tests Upon Discharge: none When: You will need to follow up with Dr. Castillo, Dr. Marina (vascular surgery) and Apryl Claudio (neurology) following discharge for rehab. Appts have been made and are listed at the end of this document. Meaningful Use Info Meaningful Use Meaningful Use Diagnoses (Choose all that apply): Ischemic CVA CVA Therapy Assessed for PT,OT and/or ST?: Yes Ischemic Stroke Antithrombotic order at d/c?: Yes Dx of Atrial fib/flutter?: No Anticoagulant at discharge?: No Reason anticoagulant not ordered: Treatment not Indicated Statin Dosing Therapy Reference: STATIN DOSE THERAPY REFERENCE: * Patients > 75 years receive moderate or high dose statin therapy. * Patients 75 years or YOUNGER should receive HIGH intensity statin dose unless contraindicated. You will be required to document reason for non-treatment if statin daily dose does not meet guidelines. HIGH DOSE STATIN THERAPY DAILY Atorvastatin > than or = to 40 mg Rosuvastatin > than or = to 20 mg Amlodipine + Atorvastatin > than or = to 2.5/40 mg Ezetimibe + Simvastatin 10/80 mg Simvastatin 80mg Statins at discharge?: Yes Primary Dx Acute Ischemic CVA?: Yes IV thrombolytic ordered during stay?: No Reason IV thrombolytic not ordered: Procedure not Indicated Discharge Plan Admission Admit Date/Time: 08/18/24 15:22 Primary Reason for Your Visit: POST STROKE DEBILITY Attending Provider: Elen Muñoz Primary Care Provider: Sera Castillo Consulting Providers: Anupam Davis; Jhoana Marc; Aparna Arroyo; Hue Orellana; Lidia Leary NP; Sury Prajapati Instructions Patient Instructions: Understanding Dementia, Dementia Caregiver Tips Additional Instructions / Restrictions: 1. You have made good progress on rehab. We initially had problems with agitation when you first arrived on rehab and I started a medication called Seroquel to help you sleep at night and to help control agitation and angry outbursts. You did well on this medication and you were very cooperative and sleeping through the night. We tried cutting the dose in half and the agitationand insomnia and angry outbursts with staff recurred. I am discharging you on Seroquel 25 mg at bedtime. If you are having problems with anger and behavior during the day you can take an extra dose in the morning. Taking this medication will help with keeping you at home rather than a meat passer care facility. 2. You have many aneurysms. Aneurysms are a weakening in the wall of an arteryand this can lead to rupture of the artery and bleeding. Sometimes the artery with the aneurysm will have blood clots that adhere to the wall of the aneurysmand these can break off and lead to strokes. You are at risk if more strokes inthe future. You are also at risk for blood clots into your legs. If you get anarterial clot into the leg the leg will get VERY painful and can be cold to the change with blue or white discoloration of the the leg. This would be an emergency and you would need to go to the ER immediately. 3. You will no longer be able to drive. You have a form of dementia called Wernicke's encephalopathy. This degeneration of the brain occurs as a result oflong-term alcohol abuse. Even though you have quit drinking this will not change. In addition to the Wernicke's encephalopathy I think you probably have Alzheimer's dementia also. Over the past 3 to 5 years your memory has gotten increasingly bad and now you have some behavioral disturbance. You are not safeto drive. 4. If you or your family have any questions after you leave rehab please do nothesitate to call me. 5. the bilingual social worker made a referral for palliative care. they will be callingyou to set up a meeting. They will tell you what they do and answer any questions you have. You are not obligated to sign up for anything....I just think it would be beneficial to have palliative care on because they can help deal with problems that would other walter lead to a trip to the ER. they can also prescribe medications. OFFICE: [phone] CELL: [phone] NURSES STATION ON REHAB: [phone] Discharge Orders/Prescriptions Prescriptions: New quetiapine 25 mg Tablet 25 mg PO 2100 Qty: 45 0RF Rx Instructions: Take 1 tab at bedtime every night. If agitated during the day can give 25 mgone more time a day as needed. atorvastatin 80 mg Tablet 80 mg PO QHS Qty: 30 0RF acetaminophen 325 mg Tablet 650 mg PO Q6H PRN PRN (Reason: Pain Score 1-10) Qty: 1 0RF sertraline 50 mg Tablet 50 mg PO DAILY Qty: 30 0RF Mylanta Tonight 800-270-80 mg/10 mL suspension 15 ml PO Q6H PRN PRN (Reason: heartburn) Qty: 355 0RF Continued clopidogrel 75 mg Tablet 75 mg PO DAILY Qty: 30 0RF nifedipine 30 mg tablet extended release 24hr 30 mg PO DAILY Qty: 30 3RF aspirin 81 mg Tablet,Chewable 81 mg PO DAILY Qty: 90 0RF ramipril 10 mg capsule 10 mg PO DAILY Qty: 30 0RF Discontinued omeprazole 40 mg capsule,delayed release(DR/EC) 40 mg PO DAILY Qty: 30 0RF atorvastatin 40 mg tablet 40 mg PO QHS enoxaparin 40 mg/0.4 mL Syringe 40 mg subcut DAILY Referrals / Follow Up: Sera Castillo MD [Primary Care Provider] - 09/07/24 3:40 pm Enzo Marina MD [Med Staff - Active Staff] - Within 1 Month Apryl Claudio NP-C [Med Staff - Adv Practice Prof] - 09/13/24 8:30 am Disposition Disposition (needs filled in before D/C Order can be placed): Home Health Service Charges/Coding Visit Charges Inpatient E&M: 55963 Disch Hosp >30min 08/31/24 1149 <Electronically signed by Elen Muñoz DO> Cosigner Signature (if applicable): CC: GUANAKITO Claudio; Dr. Sera Castillo MD; Dr. Enzo Marina MD; Dr. Jhoana Marc MD; Dr. Elen Muñoz DO~ Signed [facility] Work Phone: [phone] Discharge summary Author [facility] Note Date/Time August 31, 2024 9:4 4am [facility] Medical Records Department [address] [place] [address] Instructions for Home/Discharge Instructions 08/30/24 1623 MR#: [id number] Acct: [id number] Name: LEO ANGELO Rep #:[id number] : 1945 79 From: Elen Muñoz DO PCP: Dr. Sera Castillo MD Status:ADM I N Discharge Instructions Diet Discharge Diet: No restrictions DC O2, CPAP, BIPAP needs Home O2 Discharge instructions: No Dressing / Incision Discharge Activity: May Not Drive and - (use a cane when ambulating or a walker.) Weight Bearing Status: Full weight bearing Dressing / Incision Call your doctor if you observe: Fever of 101 or Higher, Inability to urinate, Inability to have a bowel movement, Shortness of breath, Dizziness, Fainting spells, Swelling in the ankles, Chest pain, Increased palpitations (irregular heartbeat), Calf discomfort and - (STROKE symptoms: facial droop, slurred speech, inability to get words out, weakness on 1 side of the body and not the other, numbness on 1 side of the body and not the other, inability to maintain your balance sitting or standing, vertigo. ) Follow Up Care When: You will need to follow up with Dr. Castillo, Dr. Marina (vascular surgery) and Apryl Claudio (neurology) following discharge for rehab. Appts have been made and are listed at the end of this document. Test Results: Test results from this visit will be discussed in further detail at your follow- up appointment, if applicable. Pending Tests Upon Discharge: none Discharge Plan Admission Admit Date/Time: 08/18/24 15:22 Primary Reason for Your Visit: POST STROKE DEBILITY Attending Provider: Elen Muñoz Primary Care Provider: Sera Castillo Consulting Providers: Anupam Davis; Jhoana Marc; Aparna Arroyo; Hue Orellana; Lidia Leary NP; Sury Prajapati Instructions Patient Instructions: Understanding Dementia, Dementia Caregiver Tips Additional Instructions / Restrictions: 1. You have made good progress on rehab. We initially had problems with agitation when you first arrived on rehab and I started a medication called Seroquel to help you sleep at night and to help control agitation and angry outbursts. You did well on this medication and you were very cooperative and sleeping through the night. We tried cutting the dose in half and the agitationand insomnia and angry outbursts with staff recurred. I am discharging you on Seroquel 25 mg at bedtime. If you are having problems with anger and behavior during the day you can take an extra dose in the morning. Taking this medication will help with keeping you at home rather than a meat passer care facility. 2. You have many aneurysms. Aneurysms are a weakening in the wall of an arteryand this can lead to rupture of the artery and bleeding. Sometimes the artery with the aneurysm will have blood clots that adhere to the wall of the aneurysmand these can break off and lead to strokes. You are at risk if more strokes inthe future. You are also at risk for blood clots into your legs. If you get anarterial clot into the leg the leg will get VERY painful and can be cold to the change with blue or white discoloration of the the leg. This would be an emergency and you would need to go to the ER immediately. 3. You will no longer be able to drive. You have a form of dementia called Wernicke's encephalopathy. This degeneration of the brain occurs as a result oflong-term alcohol abuse. Even though you have quit drinking this will not change. In addition to the Wernicke's encephalopathy I think you probably have Alzheimer's dementia also. Over the past 3 to 5 years your memory has gotten increasingly bad and now you have some behavioral disturbance. You are not safeto drive. 4. If you or your family have any questions after you leave rehab please do nothesitate to call me. 5. the bilingual social worker made a referral for palliative care. they will be callingyou to set up a meeting. They will tell you what they do and answer any questions you have. You are not obligated to sign up for anything....I just think it would be beneficial to have palliative care on because they can help deal with problems that would other walter lead to a trip to the ER. they can also prescribe medications. OFFICE: [phone] CELL: [phone] NURSES STATION ON REHAB: [phone] Discharge Orders/Prescriptions Prescriptions: New quetiapine 25 mg Tablet 25 mg PO 2100 Qty: 45 0RF Rx Instructions: Take 1 tab at bedtime every night. If agitated during the day can give 25 mgone more time a day as needed. atorvastatin 80 mg Tablet 80 mg PO QHS Qty: 30 0RF acetaminophen 325 mg Tablet 650 mg PO Q6H PRN PRN (Reason: Pain Score 1-10) Qty: 1 0RF sertraline 50 mg Tablet 50 mg PO DAILY Qty: 30 0RF Mylanta Tonight 800-270-80 mg/10 mL suspension 15 ml PO Q6H PRN PRN (Reason: heartburn) Qty: 355 0RF Continued clopidogrel 75 mg Tablet 75 mg PO DAILY Qty: 30 0RF nifedipine 30 mg tablet extended release 24hr 30 mg PO DAILY Qty: 30 3RF aspirin 81 mg Tablet,Chewable 81 mg PO DAILY Qty: 90 0RF ramipril 10 mg capsule 10 mg PO DAILY Qty: 30 0RF Discontinued omeprazole 40 mg capsule,delayed release(DR/EC) 40 mg PO DAILY Qty: 30 0RF atorvastatin 40 mg tablet 40 mg PO QHS enoxaparin 40 mg/0.4 mL Syringe 40 mg subcut DAILY Referrals / Follow Up: Sera Castillo MD [Primary Care Provider] - 09/07/24 3:40 pm Enzo Marina MD [Med Staff - Active Staff] - Within 1 Month Apryl Claudio NP-C [Med Staff - Adv Practice Prof] - 09/13/24 8:30 am Disposition Disposition (needs filled in before D/C Order can be placed): Home Health Service 08/31/24 0944<Electronically signed by Elen Muñoz DO>Elen Muñoz DO CC: CLOTH MERCERIZING SUPERVISOR-C Apryl Claudio; CLOTH MERCERIZING SUPERVISORTara Orellana; CLOTH MERCERIZING SUPERVISOR-C Lidia Leary; Dr. Sera Castillo MD; Dr. Anupam Davis DO; Dr. Aparna Arroyo MD; Dr. Jhoana Marc MD; YAQUELIN Stinson ~ Signed [facility] Work Phone: [phone] [facility] Medical Records Department [address] [place] [address] Discharge Summary 08/31/2445 MR#: [id number] Acct: [id number] Name: LEO ANGELO Rep #: [id number] : 1945 79 From: Elen Muñoz DO PCP: Dr. Sera Castillo MD Status:ADM IN Location: [place] [address] Providers Date of Admission: 08/18/24 Date of Discharge: 08/31/24 Primary Care Physician: Dr. Sera Castillo MD Consultations 08/31/24 08:35 Consult: Hospice / Palliative Care Routine Consulting Provider: [facility] Reason for Consult: PALLIATIVE: stroke, Wernickes Encephalopathy, COPD EMERGENT Consult: No MD Notified: Yes Date Notified: 08/31/24 Time Notified: 08:35 Method of Notification: Text Reason For Visit: STROKE Diagnosis Discharge Diagnosis (1) Physical debility: Status: Acute Code(s): R53.81 - Other malaise (2) Acute cerebrovascular accident (CVA): Status: Resolved Code(s): I63.9 - Cerebral infarction, unspecified (3) Cognitive dysfunction: Status: Acute Code(s): F09 - Unspecified mental disorder due to known physiological condition (4) Wernickes encephalopathy: Status: Acute Code(s): E51.2 - Wernicke's encephalopathy (5) History of alcoholism: Status: Acute Code(s): F10.21 - Alcohol dependence, in remission (6) Oropharyngeal dysphagia: Status: Acute Code(s): R13.12 - Dysphagia, oropharyngeal phase (7) Right hemiparesis: Status: Acute Code(s): G81.91 - Hemiplegia, unspecified affecting right dominant side (8) Paresthesias: Status: Acute Code(s): R20.2 - Paresthesia of skin (9) Ataxia: Status: Acute Code(s): R27.0 - Ataxia, unspecified (10) Facial droop: Status: Acute Code(s): R29.810 - Facial weakness (11) Normochromic normocytic anemia: Status: Acute Code(s): D64.9 - Anemia, unspecified (12) History of depression: Status: Chronic Code(s): Z86.59 - Personal history of other mental and behavioral disorders (13) COPD (chronic obstructive pulmonary disease): Status: Chronic Code(s): J44.9 - Chronic obstructive pulmonary disease, unspecified Qualifiers: COPD type: unspecified COPD Qualified Code(s): J44.9 - Chronic obstructive pulmonary disease, unspecified (14) HTN (hypertension): Status: Chronic Code(s): I10 - Essential (primary) hypertension Qualifiers: Hypertension type: primary hypertension Qualified Code(s): I10 - Essential (primary) hypertension (15) Hyperlipidemia: Status: Chronic Code(s): E78.5 - Hyperlipidemia, unspecified Qualifiers: Hyperlipidemia type: unspecified Qualified Code(s): E78.5 - Hyperlipidemia, unspecified (16) Tobacco abuse: Status: Inactive Code(s): Z72.0 - Tobacco use (17) Prothrombin gene mutation: Status: Chronic Code(s): D68.52 - Prothrombin gene mutation (18) Nonobstructive atherosclerosis of coronary artery: Status: Chronic Code(s): I25.10 - Atherosclerotic heart disease of [place] coronary artery without angina pectoris (19) Thoracic aortic aneurysm (TAA): Status: Chronic Code(s): I71.2 - Thoracic aortic aneurysm, without rupture Qualifiers: Presence of rupture: without rupture Thoracic aorta location: unspecified Qualified Code(s): I71.20 - Thoracic aortic aneurysm, without rupture, unspecified (20) AAA (abdominal aortic aneurysm) without rupture: Status: Chronic Code(s): I71.4 - Abdominal aortic aneurysm, without rupture Qualifiers: Abdominal aorta location: unspecified Qualified Code(s): I71.40 - Abdominal aortic aneurysm, without rupture, unspecified (21) 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 Code(s): I72.8 - Aneurysm of other specified arteries (22) Diverticulosis: Status: Chronic Code(s): K57.90 - Diverticulosis of intestine, part unspecified, without perforation or abscess without bleeding (23) GERD (gastroesophageal reflux disease): Status: Acute Code(s): K21.9 - Gastro-esophageal reflux disease without esophagitis Qualifiers: Esophagitis presence: without esophagitis Qualified Code(s): K21.9 - Gastro-esophageal reflux disease without esophagitis (24) Carotid stenosis: Status: Inactive Code(s): I65.29 - Occlusion and stenosis of unspecified carotid artery Qualifiers: Laterality: bilateral Qualified Code(s): I65.23 - Occlusion and stenosis of bilateral carotid arteries (25) Psychomotor agitation: Status: Acute Code(s): R45.1 - Restlessness and agitation Plan 1. Continue therapy 2. 25 to Seroquel p.o. now. 3. Increase the at bedtime dose to 25 mg once again. He failed trying to wean him down and had recurrent agitation, increased paranoia and did not sleep well last night. Medications at Discharge Home Medications acetaminophen 325 mg tablet 650 mg (2 x 325 mg) PO Q6H PRN PRN Pain Score 1-10 #1 TAB 08/30/24 aspirin 81 mg chewable tablet 81 mg PO DAILY heart health #90 tabs 08/30/24 atorvastatin 80 m (more content not included)...[facility] 08-31-2024 Discharge summary [facility] Medical Records Department [address] [place] [address] Instructions for Home/Discharge Instructions 08/30/24 1623 MR#: [id number] Acct: [id number] Name: LEO ANGELO Rep #:[id number] : 1945 79 From: Elen Muñoz DO PCP: Dr. Sera Castillo MD Status:ADM I N Discharge Instructions Diet Discharge Diet: No restrictions DC O2, CPAP, BIPAP needs Home O2 Discharge instructions: No Dressing / Incision Discharge Activity: May Not Drive and - (use a cane when ambulating or a walker.) Weight Bearing Status: Full weight bearing Dressing / Incision Call your doctor if you observe: Fever of 101 or Higher, Inability to urinate, Inability to have a bowel movement, Shortness of breath, Dizziness, Fainting spells, Swelling in the ankles, Chest pain,Increased palpitations (irregular heartbeat), Calf discomfort and - (STROKE symptoms: facial droop,slurred speech, inability to get words out, weakness on 1 side of the body and not the other, numbness on 1 side of the body and not the other, inability to maintain your balance sitting or standing,vertigo. ) Follow Up Care When: You will need to follow up with Dr. Castillo, Dr. Marina (vascular surgery) and Apryl Claudio (neurology) following discharge for rehab. Appts have been made and are listed at the end of this document. Test Results: Test results from this visit will be discussed in further detail at your follow- up appointment, if applicable. Pending Tests Upon Discharge: none Discharge Plan Admission Admit Date/Time: 08/18/24 15:22 Primary Reason for Your Visit: POST STROKE DEBILITY Attending Provider: Elen Muñoz Primary Care Provider: Sera Castillo Consulting Providers: Anupam Davis; Jhoana Marc; Aparna Arroyo; Hue Orellana; Yaneth Leary; Sury Prajapati Instructions Patient Instructions: Understanding Dementia, Dementia Caregiver Tips Additional Instructions / Restrictions: 1. You have made good progress on rehab. We initially had problems with agitation when you first arrived on rehab and I started a medication called Seroquel to help you sleep at night and to help control agitation and angry outbursts. You did well on this medication and you were very cooperative and sleeping through the night. We tried cutting the dose in half and the agitationand insomnia and angry outbursts with staff recurred. I am discharging you on Seroquel 25 mg at bedtime. If you are having problems with anger and behavior during the day you can take an extra dose in the morning. Taking this medication will help with keeping you at home rather than a meat passer care facility. 2. You have many aneurysms. Aneurysms are a weakening in the wall of an arteryand this can lead to rupture of the artery and bleeding. Sometimes the artery with the aneurysm will have blood clots that adhere to the wall of the aneurysmand these can break off and lead to strokes. You are at risk if more strokes inthe future. You are also at risk for blood clots into your legs. If you get anarterial clot into the leg the leg will get VERY painful and can be cold to the change with blue or white discoloration of the the leg. This would be an emergency and you would need to go to the ER immediately. 3. You will no longer be able to drive. You have a form of dementia called Wernicke's encephalopathy. This degeneration of the brain occurs as a result oflong-term alcohol abuse. Even though you havequit drinking this will not change. In addition to the Wernicke's encephalopathy I think you probably have Alzheimer's dementia also. Over the past 3 to 5 years your memory has gotten increasingly bad and now you have some behavioral disturbance. You are not safeto drive. 4. If you or your family have any questions after you leave rehab please do nothesitate to call me. 5. the bilingual social worker made a referral for palliative care. they will be callingyou to set up a meeting. They will tell you what they do and answer any questions you have. You are not obligated to signup for anything....I just think it would be beneficial to have palliative care on because they can help deal with problems that would other walter lead to a trip to the ER. they can also prescribe medications. OFFICE: [phone] CELL: [phone] NURSES STATION ON REHAB: [phone] Discharge Orders/Prescriptions Prescriptions: New quetiapine 25 mg Tablet 25 mg PO 2100 Qty: 45 0RF Rx Instructions: Take 1 tab at bedtime every night. If agitated during the day can give 25 mgone more time a day as needed. atorvastatin 80 mg Tablet 80 mg PO QHS Qty: 30 0RF acetaminophen 325 mg Tablet 650 mg PO Q6H PRN PRN (Reason: Pain Score 1-10) Qty: 1 0RF sertraline 50 mg Tablet 50 mg PO DAILY Qty: 30 0RF Mylanta Tonight 800-270-80 mg/10 mL suspension 15 ml PO Q6H PRN PRN (Reason: heartburn) Qty: 355 0RF Continued clopidogrel 75 mg Tablet 75 mg PO DAILY Qty: 30 0RF nifedipine 30 mg tablet extended release 24hr 30 mg PO DAILY Qty: 30 3RF aspirin 81 mg Tablet,Chewable 81 mg PO DAILY Qty: 90 0RF ramipril 10 mg capsule 10 mg PO DAILY Qty: 30 0RF Discontinued omeprazole 40 mg capsule,delayed release(DR/EC) 40 mg PO DAILY Qty: 30 0RF atorvastatin 40 mg tablet 40 mg PO QHS enoxaparin 40 mg/0.4 mL Syringe 40 mg subcut DAILY Referrals / Follow Up: Sera Castillo MD [Primary Care Provider] - 09/07/24 3:40 pm Enzo Marina MD [Med Staff - Active Staff] - Within 1 Month Apryl Claudio NP-C [Med Staff - Adv Practice Prof] - 09/13/24 8:30 am Disposition Disposition (needs filled in before D/C Order can be placed): Home Health Service 08/31/24 0944Elen Heather Toni MADRIGAL CC: GUANAKITO Claudio; GUANAKITO Orellana; GUANAKITO Leary; Dr. Sera Castillo MD; Dr. Anupam Davis DO; Dr. Aparna Arroyo MD; Dr. Jhoana Marc MD; YAQUELIN Stinson ~ [facility]03-21-2025 Progress note Author Elen Muñoz [facility] Note Date/Time August 31, 2024 11: 55am [facility] Medical Records Department [address] [place] [address] Progress Note 08/27/24 1232 MR#: [id number] Acct: [id number] Name: DOTTIELEO MONSON Rep #:[id number] : 1945 79 From: Elen Muñoz DO PCP: Dr. Sera Castillo MD Status:ADM I N Location: [place] [address] Subjective Subjective Afebrile Vital signs stable Maintaining appropriate oxygen saturation on room air Reviewed nurses notes. He did not sleep well last night. He is refusing meals today. He is setting off the alarms today. He is agitated and wanting to call his family telling them we are keeping him prisoner. Has been up since 4 AM. He had 12.5 mg of Seroquel last night and obviously this attempt to wean has failed. The med list was reviewed. All lab drawn this morning was personally reviewed. The sodium is 136 and the potassium is 3.7. The BUN is 25 with a stable creatinine of 0.8. Calcium and magnesium are normal. Denies lightheadedness, cephalgia, chest pain, shortness of breath, palpitations, nausea/vomiting/abdominal pain, dysuria and calf tenderness. Objective Data Objective Data Vital Signs: Vital Signs Temp Pulse Resp BP Pulse Ox O2 Del Method FiO2 97.5 F L 56 L 15 133/59 H 96 Room Air 21 08/27/24 06:00 08/27/24 06:00 08/27/24 06:00 08/27/24 06:00 08/27/24 06:00 08/27/24 08:13 08/19/24 22:00 Oxygen Delivery Method Room Air Weight: 129 lb 13.636 oz Body Mass Index (BMI) 20.3 Intake & Output: Intake and Output for Last 24 Hours 08/25/24 08/26/24 08/27/24 23:59 23:59 23:59 Intake Total 580 / 680 860 / 860 Output Total 500 / 700 350 / 350 Balance 80 / -20 510 / 510 Lab / Micro Data 08/26/24 10:05 08/27/24 05:50 Labs: Laboratory Results - last 24 hr 08/27/24 05:50: Sodium 136, Potassium 3.7, Chloride 101, Carbon Dioxide 22.6, Anion Gap 12, BUN 25 H, Creatinine 0.80, Estim Creat Clear Calc 61.35, Est GFR (MDRD) Non-Af 89, BUN/Creatinine Ratio 31.1 H, Glucose 96, Calcium 8.9, Magnesium 2.0 Micro: Microbiology 08/20/24 11:55 Stool Stool Occult Blood (SHAWANDA) - Final Occult Blood Positive Physical Exam Const alert and oriented x3 Constitutional Narrative: Cooperative and pleasant HEENT Mouth: dry mucous membranes Resp Resp Narrative: Scattered mild expiratory wheezing, no crackles. No conversational dyspnea, no tachypnea no accessory muscle use. No cough with deep breathing. Cardio regular rate, regular rhythm, no murmurs and no gallops Cardio Narrative: No ectopy GI normal to inspection, nondistended, normoactive bowel sounds and soft to palpation GI Narrative: No guarding with palpation Extremity no calf tenderness General Extremity: Negative for edema Assessment & Plan Assessment/Plan (1) Physical debility: (2) Acute cerebrovascular accident (CVA): (3) Cognitive dysfunction: (4) Wernickes encephalopathy: (5) History of alcoholism: (6) Oropharyngeal dysphagia: (7) Right hemiparesis: (8) Paresthesias: (9) Ataxia: (10) Facial droop: (11) Normochromic normocytic anemia: (12) History of depression: (13) COPD (chronic obstructive pulmonary disease): QUALIFIERS: COPD type: unspecified COPD Qualified Code(s): J44.9 - Chronic obstructive pulmonary disease, unspecified (14) HTN (hypertension): QUALIFIERS: Hypertension type: primary hypertension Qualified Code(s): I10 - Essential (primary) hypertension (15) Hyperlipidemia: QUALIFIERS: Hyperlipidemia type: unspecified Qualified Code(s): E78.5 - Hyperlipidemia, unspecified (16) Tobacco abuse: (17) Prothrombin gene mutation: (18) Nonobstructive atherosclerosis of coronary artery: (19) Thoracic aortic aneurysm (TAA): QUALIFIERS: Thoracic aorta location: unspecified Presence of rupture: without rupture Qualified Code(s): I71.20 - Thoracic aortic aneurysm, without rupture, unspecified (20) AAA (abdominal aortic aneurysm) without rupture: QUALIFIERS: Abdominal aorta location: unspecified Qualified Code(s): I71.40 - Abdominal aortic aneurysm, without rupture, unspecified (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 Continue therapy 2. 25 to Seroquel p.o. now. 3. Increase the at bedtime dose to 25 mg once again. He failed trying to wean him down and had recurrent agitation, increased paranoia and did not sleep well last night. Charges/Coding Visit Charges Inpatient E&M: 45663 Subs Hosp L1 08/31/24 1152 <Electronically signed by Elen Muñoz DO> Elen Muñoz DO Cosigner Signature (if applicable): CC: ~ Signed [facility] [facility] Work Phone: 1(715) 170-112103-20-2025 Progress note Author [facility] Note Date/Time August 26, 2024 12: 02pm [facility] Medical Records Department [address] [place] [address] Progress Note 08/26/24 0930 MR#: [id number] Acct: [id number] Name: LEO ANGELO Rep #:[id number] : 1945 79 From: Elen Muñoz DO PCP: Dr. Sera Castillo MD Status:ADM I N Location: [place] [address] Subjective Subjective Afebrile VSS -is ranged from 54-62 over the past 24 hours. Heart rate this a.m. is 74. Blood pressures have ranged from 125/76 to 139/66. Maintaining appropriate oxygen saturation on RA-96 to 98%. Oral intake - FOOD good, consistent FLUIDS continues to have poor fluid intake. Weight is down to 129 pounds (increased from 135 pounds 9 ounces at admission torehab. Discussed with nursing - no problems that need addressed. Sleeping well at night. Cooperative with staff. No agitation. Reviewed the THERAPY notes - Got up off the toilet today again and was standingat the sink with no assistance called for. Medication list reviewed. Denies pain, SOB, palpitations, lightheadedness, dysuria, calf pain. ' Dtr Suzanne in yesterday for family training. Realizing he is going to need 24/7 supervision. Looking at options for care.......hiring people at home, ECF, assisted living, etc. Is going to tour a few facilities. Mother is disabled and non- compliant and she is awake at night and sleeping during the day and Garyis awake during the day and sleeping when she is awake. He was her caregiver. They are both disabled now and he will no longer be able to drive. Objective Data Objective Data Vital Signs: Vital Signs Temp Pulse Resp BP Pulse Ox O2 Del Method FiO2 97.6 F L 74 18 125/76 H 96 Room Air 21 08/26/24 06:00 08/26/24 06:00 08/26/24 06:00 08/26/24 06:00 08/26/24 06:00 08/26/24 06:00 08/19/24 22:00 Oxygen Delivery Method Room Air Weight: 129 lb 13.636 oz Body Mass Index (BMI) 20.3 Intake & Output: Intake and Output for Last 24 Hours 08/24/24 08/25/24 08/26/24 23:59 23:59 23:59 Intake Total 930 / 930 580 / 680 300 / 300 Output Total 1100 / 1100 500 / 700 200 / 200 Balance -170 / -170 80 / -20 100 / 100 Lab / Micro Data 08/26/24 10:05 08/21/24 05:22 Micro: Microbiology 08/20/24 11:55 Stool Stool Occult Blood (SHAWANDA) - Final Occult Blood Positive Physical Exam Const alert Constitutional Narrative: Appropriate, making good eye contact. Asking when he can go home. Resp normal respiratory effort Resp Narrative: Scattered expiratory wheezing. No cough with deep breathing. No crackles. Nottachypneic and has no conversational dyspnea. No dyspnea with exertion. Effort and Inspection: Negative for tachypneic Cardio regular rate, regular rhythm and no gallops Cardio Narrative: No ectopy GI normal to inspection, nondistended, normoactive bowel sounds, soft to palpation and non-tender Extremity no calf tenderness General Extremity: Negative for edema Skin Rashes: no rashes Wounds: Negative for wounds noted Psych cooperative Psych Narrative: Sleeping well at night. Seroquel has been effective in controlling agitation and insomnia. Very poor short term memory. Does not recognize how many deficits he has. Still impulsive. Tolerating Sertraline with no adverse side effects. Appearance: appropriate Attitude: No agitated Assessment & Plan Assessment/Plan (1) Physical debility: (2) Acute cerebrovascular accident (CVA): (3) Cognitive dysfunction: (4) Wernickes encephalopathy: (5) History of alcoholism: (6) Oropharyngeal dysphagia: (7) Right hemiparesis: (8) Paresthesias: (9) Ataxia: (10) Facial droop: (11) Normochromic normocytic anemia: (12) History of depression: (13) COPD (chronic obstructive pulmonary disease): QUALIFIERS: COPD type: unspecified COPD Qualified Code(s): J44.9 - Chronic obstructive pulmonary disease, unspecified (14) HTN (hypertension): QUALIFIERS: Hypertension type: primary hypertension Qualified Code(s): I10 - Essential (primary) hypertension (15) Hyperlipidemia: QUALIFIERS: Hyperlipidemia type: unspecified Qualified Code(s): E78.5 - Hyperlipidemia, unspecified (16) Tobacco abuse: (17) Prothrombin gene mutation: (18) Nonobstructive atherosclerosis of coronary artery: (19) Thoracic aortic aneurysm (TAA): QUALIFIERS: Thoracic aorta location: unspecified Presence of rupture: without rupture Qualified Code(s): I71.20 - Thoracic aortic aneurysm, without rupture, unspecified (20) AAA (abdominal aortic aneurysm) without rupture: QUALIFIERS: Abdominal aorta location: unspecified Qualified Code(s): I71.40 - Abdominal aortic aneurysm, without rupture, unspecified (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 Continue therapy 2. Check a BMP, mag and a change 3. Once again encouraged to increase fluid intake. Will not drink water. He drinks coffee. NA told to keep a cup of decaf coffee on his tray at all times. 4. Will not be safe at home without 24/[address] supervision[address]. He had chronic dementia prior to the stroke due to Wernicke's encephalopathy and this was progressing over pst 3-5 years and he has been getting irritable at agitatedat home. Will continue to work with his dtr's to determine where he will go at [place]. 5. Consider increasing Zoloft to 75 mg next week. May consider decreasing the Seroquel dose to 12.5 mg but, he is so much more Cooperative now and is sleepingwell at night. 6. With all his aneurysms (lined with clot) he is at risk for more CVA's goingforward and also at risk for sudden if one of the aneurysms ruptures. Thiswas discussed with Suzanne. Charges/Coding Visit Charges Inpatient E&M: 78394 Subs Hosp L1 08/26/24 1152 <Electronically signed by Elen Muñoz DO> Elen Muñoz DO Cosigner Signature (if applicable): CC: ~ Signed ADDENDUM by Dr. Elen Muñoz DO on 08/26/24 at 1202 Addendum When he was told if he went home we could arrange [facility] he perseverate on why arepeople coming to my house. Could not grasp the concept of the visits would notbe everyday and they would be there to help him. He is somewhat paranoid believing that people are trying to imprison him and take away his rights. I can see him not letting [facility] into his house. I also see him driving unless family takes the keys and the vehicle away. Will try decreasing the Seroquel to12.5 mg while still on rehab and if agitation and insomnia increase will plan onsending out on 25 mg at DC. 08/26/24 1202 <Electronically signed by Elen faria DO> Date _ Elen Muñoz Signature (if applicable): Date cc: ~* Signed [facility] Work Phone: 1(460) 112-408803-20-2025 Progress note [facility] Department [address] [place] [address] Progress Note 08/26/24929 MR#: [id number] Acct: [id number] Name: LEO ANGELO Rep #:[id number] : 1945 79 From: Elen Muñoz DO PCP: Dr. Sera Castillo MD Status:ADM I N Location: [place] [address] Subjective Subjective Afebrile VSS -is ranged from 54-62 over the past 24 hours. Heart rate this a.m. is 74. Blood pressures have ranged from 125/76 to 139/66. Maintaining appropriate oxygen saturation on -96 to 98%. Oral intake - FOOD good, consistent FLUIDS continues to have poor fluid intake. Weight is down to 129 pounds (increased from 135 pounds 9 ounces at admission torehab. Discussed with nursing - no problems that need addressed. Sleeping well at night. Cooperative with staff. No agitation. Reviewed the THERAPY notes - Got up off the toilet today again and was standingat the sink with no assistance called for. Medication list reviewed. Denies pain, SOB, palpitations, lightheadedness, dysuria, calf pain. ' Dtr Suzanne in yesterday for family training. Realizing he is going to need 30/12 supervision. Looking at options for care.......hiring people at home, ECF, assisted living, etc. Is going to tour a few facilities. Mother is disabled and non-compliant and she is awake at night and sleeping during the day and Garyis awake during the day and sleeping when she is awake. He was her caregiver. They are both disabled now and he will no longer be able to drive. Objective Data Objective Data Vital Signs: Vital Signs Temp Pulse Resp BP Pulse Ox O2 Del Method FiO2 97.6 F L 74 18 125/76 H 96 Room Air 21 08/26/24 06:00 08/26/24 06:00 08/26/24 06:00 08/26/24 06:00 08/26/24 06:00 08/26/24 06:00 08/19/24 22:00 Oxygen Delivery Method Room Air Weight: 129 lb 13.636 oz Body Mass Index (BMI) 20.3 Intake & Output: Intake and Output for Last 24 Hours 08/24/24 08/25/24 08/26/24 23:59 23:59 23:59 Intake Total 930 / 930 580 / 680 300 / 300 Output Total 1100 / 1100 500 / 700 200 / 200 Balance -170 / -170 80 / -20 100 / 100 Lab / Micro Data 08/26/24 10:05 08/21/24 05:22 Micro: Microbiology 08/20/24 11:55 Stool Stool Occult Blood (SHAWANDA) - Final Occult Blood Positive Physical Exam Const alert Constitutional Narrative: Appropriate, making good eye contact. Asking when he can go home. Resp normal respiratory effort Resp Narrative: Scattered expiratory wheezing. No cough with deep breathing. No crackles. Nottachypneic and has no conversational dyspnea. No dyspnea with exertion. Effort and Inspection: Negative for tachypneic Cardio regular rate, regular rhythm and no gallops Cardio Narrative: No ectopy GI normal to inspection, nondistended, normoactive bowel sounds, soft to palpation and non-tender Extremity no calf tenderness General Extremity: Negative for edema Skin Rashes: no rashes Wounds: Negative for wounds noted Psych cooperative Psych Narrative: Sleeping well at night. Seroquel has been effective in controlling agitation and insomnia. Very poor short term memory. Does not recognize how many deficits he has. Still impulsive. Tolerating Sertraline with no adverse side effects. Appearance: appropriate Attitude: No agitated Assessment & Plan Assessment/Plan (1) Physical debility: (2) Acute cerebrovascular accident (CVA): (3) Cognitive dysfunction: (4) Wernickes encephalopathy: (5) History of alcoholism: (6) Oropharyngeal dysphagia: (7) Right hemiparesis: (8) Paresthesias: (9) Ataxia: (10) Facial droop: (11) Normochromic normocytic anemia: (12) History of depression: (13) COPD (chronic obstructive pulmonary disease): QUALIFIERS: COPD type: unspecified COPD Qualified Code(s): J44.9 - Chronic obstructive pulmonary disease, unspecified (14) HTN (hypertension): QUALIFIERS: Hypertension type: primary hypertension Qualified Code(s): I10 - Essential (primary) hypertension (15) Hyperlipidemia: QUALIFIERS: Hyperlipidemia type: unspecified Qualified Code(s): E78.5 - Hyperlipidemia, unspecified (16) Tobacco abuse: (17) Prothrombin gene mutation: (18) Nonobstructive atherosclerosis of coronary artery: (19) Thoracic aortic aneurysm (TAA): QUALIFIERS: Thoracic aorta location: unspecified Presence of rupture: without rupture Qualified Code(s): I71.20 - Thoracic aortic aneurysm, without rupture, unspecified (20) AAA (abdominal aortic aneurysm) without rupture: QUALIFIERS: Abdominal aorta location: unspecified Qualified Code(s): I71.40 - Abdominal aortic aneurysm, without rupture, unspecified (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 Continue therapy 2. Check a BMP, mag and a change 3. Once again encouraged to increase fluid intake. Will not drink water. He drinks coffee. NA told to keep a cup of decaf coffee on his tray at all times. 4. Will not be safe at home without 24/[address] supervision[address]. He had chronic dementia prior to the stroke due to Wernicke's encephalopathy and this was progressing over pst 3-5 years and he has been getting irritable at agitatedat home. Will continue to work with his dtr's to determine wherehe will go at [place]. 5. Consider increasing Zoloft to 75 mg next week. May consider decreasing the Seroquel dose to 12.5mg but, he is so much more Cooperative now and is sleepingwell at night. 6. With all his aneurysms (lined with clot) he is at risk for more CVA's goingforward and also at risk for sudden if one of the aneurysms ruptures. Thiswas discussed with Suzanne. Charges/Coding Visit Charges Inpatient E&M: 41570 Subs Hosp L1 08/26/24 1152 Elen Muñoz DO Cosigner Signature (if applicable): CC: ~ Signed ADDENDUM by Dr. Elen Muñoz, on 08/26/24 at 1202 Addendum When he was told if he went home we could arrange [facility] he perseverate on why arepeople coming to [facility]. Could not grasp the concept of the visits would notbe everyday and they would be there to help him. He is somewhat paranoid believing that people are trying to imprison him and take away his rights. I can see him not letting C into his house. I also see him driving unless family takes the keys and the vehicle away. Will try decreasing the Seroquel to12.5 mg while still on rehab and ifagitation and insomnia increase will plan onsending out on 25 mg at [place]. 08/26/24 1202 ti DO> Date _ Elen Muñoz DO Cosigner Signature (if applicable): Date cc: ~* Signed [facility]03-18-2025 Progress note Author Elen Noemigiana [facility] Note Date/Time August 24, 2024 1:5 6pm [facility] Medical Records Department [address] [place] [id number] Progress Note 08/24/24 1233 MR#: [id number] Acct: [id number] Name: LEO ANGELO Rep #:[id number] : 1945 79 From: Elen Muñoz DO PCP: Dr. Sera Castillo MD Status:ADM I N Location: [place] [address] Subjective Subjective Afebrile VSS -heart rate has ranged from 55-70 over the past 48 hours. Blood pressure has ranged from 105/60 to 139/66. Maintaining appropriate oxygen saturation on RA-94 to 96% Oral intake - FOOD eating 50 to 100% of almost all of his meals. Refused breakfast yesterday a.m. but he has never been a breakfast eater. FLUIDS poordespite encouragement to increase his fluid intake. Discussed with nursing - no problems that need addressed. Sleeping well at night. No agitation. No incontinence. Reviewed the THERAPY notes Medication list reviewed. Antihypertensives include ramipril 10 mg daily. Procardia XL 30 mg was placed on hold on 08/20/2024 for hypotension. Not on any medication to block the AV node. Recent TSH was 1.9. Tolerating sertraline with no adverse side effects. Has been compliant with using the fluticasone/Salmeterol inhaler....refused only once. there has been no change in wheezing and his dtr tells me that he has been prescribed an inhaler in the past and used it when she made him but, when he is at home and she is not watching him he does not use this. Leo has no complaints today. He tells me that he has learned if he tries to get out of bed by himself the alarm goes off and so he does not do this. He tries to get away with getting up from the toilet and standing without assist inthe bathroom because there is no alarm on him in the bathroom. We had a discussion about compliance. He smiled when I said he has a hx of non-compliance and doing what he wants and not what is actually best for him. I think it is good he has some insight into the alarm system. I told him IF he goes home he will not be safe if he is not using a device to ambulate, even in the house and falls will happen. He has stairs down to the basement and told his dtr he will be able to go down the stairs. We discussed that as his physician I can not recommend DC home IF I know that he will be non-compliant. He knows he has issues with memory. He is going to try and be complaint with the restriction in the BR and not get up by himself. He is to call for assist to get up. IF he is able to do this would consider a trial of going home if extra assistance can be provided by family, friends, counter helper/assistance and [facility]. Would need to have a SW. Would need to discuss this with family. Will see how he does with dtr Suzanne in therapy tomorrow and how he does with compliance over the next couple days. Woul;d like to have a back up plan for SNF/ECF in case he is deemed not safe to go home. Objective Data Objective Data Vital Signs: Vital Signs Temp Pulse Resp BP Pulse Ox O2 Del Method FiO2 97.9 F 55 L 16 139/66 H 96 Room Air 21 08/24/24 06:00 08/24/24 06:00 08/24/24 06:00 08/24/24 06:00 08/24/24 06:00 08/24/24 06:00 08/19/24 22:00 Oxygen Delivery Method Room Air Weight: 133 lb 13.129 oz Body Mass Index (BMI) 20.9 Intake & Output: Intake and Output for Last 24 Hours 08/22/24 08/23/24 08/24/24 23:59 23:59 23:59 Intake Total 1200 / 1200 760 / 760 220 / 220 Output Total 600 / 600 900 / 900 500 / 500 Balance 600 / 600 -140 / -140 -280 / -280 Lab / Micro Data 08/19/24 05:34 08/21/24 05:22 Micro: Microbiology 08/20/24 11:55 Stool Stool Occult Blood (SHAWANDA) - Final Occult Blood Positive Physical Exam Const alert Constitutional Narrative: Appropriate, making good eye contact. Asking when he can go home. Resp normal respiratory effort Resp Narrative: Diffuse expiratory wheezing. No conversational dyspnea. Lying flat in bed withno respiratory distress. Denies shortness of breath. Not coughing. Effort and Inspection: Negative for tachypneic Cardio regular rate, regular rhythm and no gallops Cardio Narrative: No ectopy GI normal to inspection, nondistended, normoactive bowel sounds, soft to palpation and non-tender Extremity no calf tenderness General Extremity: Negative for edema Psych Psych Narrative: Assessment & Plan Assessment/Plan (1) Physical debility: (2) Acute cerebrovascular accident (CVA): (3) Cognitive dysfunction: (4) Wernickes encephalopathy: (5) History of alcoholism: (6) Oropharyngeal dysphagia: (7) Right hemiparesis: (8) Paresthesias: (9) Ataxia: (10) Facial droop: (11) Normochromic normocytic anemia: (12) History of depression: (13) COPD (chronic obstructive pulmonary disease): QUALIFIERS: COPD type: unspecified COPD Qualified Code(s): J44.9 - Chronic obstructive pulmonary disease, unspecified (14) HTN (hypertension): QUALIFIERS: Hypertension type: primary hypertension Qualified Code(s): I10 - Essential (primary) hypertension (15) Hyperlipidemia: QUALIFIERS: Hyperlipidemia type: unspecified Qualified Code(s): E78.5 - Hyperlipidemia, unspecified (16) Tobacco abuse: (17) Prothrombin gene mutation: (18) Nonobstructive atherosclerosis of coronary artery: (19) Thoracic aortic aneurysm (TAA): QUALIFIERS: Thoracic aorta location: unspecified Presence of rupture: without rupture Qualified Code(s): I71.20 - Thoracic aortic aneurysm, without rupture, unspecified (20) AAA (abdominal aortic aneurysm) without rupture: QUALIFIERS: Abdominal aorta location: unspecified Qualified Code(s): I71.40 - Abdominal aortic aneurysm, without rupture, unspecified (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 Continue therapy 2. Daughter needed to come in for family training tomorrow 3. Encouraged him to increase his fluid intake. He has a full mug of water on his tray table and 4 bottles of bottled water and they are all full. 4. Continue to hold Procardia XL. Systolic blood pressure is only mildly above goal and this is only occasionally. Charges/Coding Visit Charges Inpatient E&M: 12156 Subs Hosp L1 08/24/24 1356 <Electronically signed by Elen Muñoz DO> Elen Muñoz DO Cosigner Signature (if applicable): CC: ~ Signed [facility] Work Phone: 1(530) 694-699603-18-2025 Progress note Author [facility] Note Date/Time August 24, 2024 12: 33pm [facility] Medical Records Department [address] [place] [id number] Progress Note 08/23/24 1122 MR#: [id number] Acct: [id number] Name: LEO ANGELO Rep #:[id number] : 1945 79 From: Elen Muñoz DO PCP: Dr. Sera Castillo MD Status:ADM I N Location: [place] [address] Subjective Subjective Leo was seen on team rounds today. Afebrile VSS -blood pressure over the past 3 days has ranged from 97/64 to 132/70. Current blood pressure is 132/70 with a heart rate of 61. The heart rate has ranged from 55 - 70 over the past 72 hours. Was mildly orthostatic on Friday onVS but, he denied lightheadedness. fluid intake is improving. Maintaining appropriate oxygen saturation on to 100% Oral intake - FOOD eating 50 to 100% of the majority of his meals. Refused breakfast this morning but states he is not a breakfast eater normally. FLUIDS fluid intake on Friday was 1100 cc and on Friday was 1200 cc. He was ordered 1 Liter of NS over Friday night for + orthostatic VS Discussed with nursing - no problems that need addressed Reviewed the THERAPY notes Medication list reviewed. Denies cephalgia, lightheadedness, shortness of breath, chest pain, nausea/vomiting/abdominal pain, dysuria and calf pain. He tells me that every doctor he is ever seen since he was in high school playing football as told and he wheezes. Denies any family history of asthma. Has been prescribed inhalers in the past but will not use them. Objective Data Objective Data Vital Signs: Vital Signs Temp Pulse Resp BP Pulse Ox O2 Del Method FiO2 99.1 F 61 16 132/70 H 94 Room Air 21 08/23/24 04:56 08/23/24 04:56 08/23/24 04:56 08/23/24 04:56 08/23/24 04:56 08/23/24 04:56 08/19/24 22:00 Oxygen Delivery Method Room Air Weight: 133 lb 13.129 oz Body Mass Index (BMI) 20.9 Intake & Output: Intake and Output for Last 24 Hours 08/21/24 08/22/24 08/23/24 23:59 23:59 23:59 Intake Total 1100 / 1100 1200 / 1200 300 / 300 Output Total 1100 / 1100 600 / 600 200 / 200 Balance 0 / 0 600 / 600 100 / 100 Lab / Micro Data 08/19/24 05:34 08/21/24 05:22 Micro: Microbiology 08/20/24 11:55 Stool Stool Occult Blood (SHAWANDA) - Final Occult Blood Positive Physical Exam Const alert Constitutional Narrative: Appropriate, making good eye contact. Asking when he can go home. Resp normal respiratory effort Resp Narrative: Diffuse expiratory wheezing. No conversational dyspnea. Effort and Inspection: Negative for tachypneic Cardio regular rate, regular rhythm and no gallops Cardio Narrative: No ectopy GI normal to inspection, nondistended, normoactive bowel sounds, soft to palpation and non-tender Extremity no calf tenderness General Extremity: Negative for edema Psych Psych Narrative: Cooperative. still impulsive and gets off the toilet and stands up without assisted......staff is having to stand at the door of the BR and remind him to wait for help when getting off the toilet. He is sleeping welol at night. Goodappetite. Pleasant and cooperative. Assessment & Plan Assessment/Plan (1) Physical debility: (2) Acute cerebrovascular accident (CVA): (3) Cognitive dysfunction: (4) Wernickes encephalopathy: (5) History of alcoholism: (6) Oropharyngeal dysphagia: (7) Right hemiparesis: (8) Paresthesias: (9) Ataxia: (10) Facial droop: (11) Normochromic normocytic anemia: (12) History of depression: (13) COPD (chronic obstructive pulmonary disease): QUALIFIERS: COPD type: unspecified COPD Qualified Code(s): J44.9 - Chronic obstructive pulmonary disease, unspecified (14) HTN (hypertension): QUALIFIERS: Hypertension type: primary hypertension Qualified Code(s): I10 - Essential (primary) hypertension (15) Hyperlipidemia: QUALIFIERS: Hyperlipidemia type: unspecified Qualified Code(s): E78.5 - Hyperlipidemia, unspecified (16) Tobacco abuse: (17) Prothrombin gene mutation: (18) Nonobstructive atherosclerosis of coronary artery: (19) Thoracic aortic aneurysm (TAA): QUALIFIERS: Thoracic aorta location: unspecified Presence of rupture: without rupture Qualified Code(s): I71.20 - Thoracic aortic aneurysm, without rupture, unspecified (20) AAA (abdominal aortic aneurysm) without rupture: QUALIFIERS: Abdominal aorta location: unspecified Qualified Code(s): I71.40 - Abdominal aortic aneurysm, without rupture, unspecified (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 Continue therapy 2. We discussed on rounds that Leo will no longer be allowed to drive due to cognitive dysfunction due to Wernicke's encephalopathy, recent additional cognitive deficit due to CVA and poor performance on testing done by ST. D/W ST. He can not even locate his room when he ambulates back from the therapy room. Short term memory is very poor. Per family has been declining cognitively for the last 3-5 years and he gets very irritable at times. they wonder if the Seroquel can be continued at [facility] since he is so much calmer and less irritable since this medication was started. 3. Dtr Suzanne will come in for family training this week to see how he is functioning. 4. He is doing well in therapy. IF he will use the AD with ambulation at home and his dtr manages the medications and finances there is a possibilty he could return home with help. He has a hx of non-compliance. Charges/Coding Visit Charges Inpatient E&M: 33735 Subs Hosp L2 08/24/24 1233 <Electronically signed by Elen Muñoz DO> Elen Muñoz DO Cosigner Signature (if applicable): CC: ~ Signed [facility] Work Phone: [phone] Progress note [facility] Medical Records Department [address] [place] [id number] Progress Note 08/24/24 1233 MR#: [id number] Acct: [id number] Name: LEO ANGELO Rep #:[id number] : 1945 79 From: Elen Muñoz DO PCP: Dr. Sera Castillo MD Status:ADM I N Location: [place] [address] Subjective Subjective Afebrile VSS -heart rate has ranged from 55-70 over the past 48 hours. Blood pressure has ranged from 105/60to 139/66. Maintaining appropriate oxygen saturation on RA-94 to 96% Oral intake - FOOD eating 50 to 100% of almost all of his meals. Refused breakfast yesterday a.m. but he has never been a breakfast eater. FLUIDS poordespite encouragement to increase his fluid intake. Discussed with nursing - no problems that need addressed. Sleeping well at night. No agitation. No incontinence. Reviewed the THERAPY notes Medication list reviewed. Antihypertensives include ramipril 10 mg daily. Procardia XL 30 mg was placed on hold on 08/20/2024 for hypotension. Not on any medication to block the AV node. Recent TSH was 1.9. Tolerating sertraline with no adverse side effects. Has been compliant with using the fluticas one/Salmeterol inhaler....refused only once. there has been no change in wheezing and his dtr tellsme that he has been prescribed an inhaler in the past and used it when she made him but, when he isat home and she is not watching him he does not use this. Leo has no complaints today. He tells me that he has learned if he tries to get out of bed by himself the alarm goes off and so he does not do this. He tries to get away with getting up from the toilet and standing without assist inthe bathroom because there is no alarm on him in the bathroom. We had a discussion about compliance. He smiled when I said he has a hx of non-compliance and doing what he wants and not what is actually best for him. I think it is good he has some insight into the alarm system. I told him IF he goes home he will not be safe if he is not using a device to ambulate, even in the house and falls will happen. He has stairs down to the basement and told his dtr he willbe able to go down the stairs. We discussed that as his physician I can not recommend DC home IF I know that he will be non-compliant. He knows he has issues with memory. He is going to try and be complaint with the restriction in the BR and not get up by himself. He is to call for assist to get up. IF he is able to do this would consider a trial of going home if extra assistance can be provided by family, friends, counter helper/assistance and [facility]. Would need to have a SW. Would need to discuss this with family. Will see how he does with dtyamil Palacios in therapy tomorrow and how he does with compliance over the next couple days. Woul;d like to have a back up plan for SNF/ECF in case he is deemed not safe to go home. Objective Data Objective Data Vital Signs: Vital Signs Temp Pulse Resp BP Pulse Ox O2 Del Method FiO2 97.9 F 55 L 16 139/66 H 96 Room Air 21 08/24/24 06:00 08/24/24 06:00 08/24/24 06:00 08/24/24 06:00 08/24/24 06:00 08/24/24 06:00 08/19/24 22:00 Oxygen Delivery Method Room Air Weight: 133 lb 13.129 oz Body Mass Index (BMI) 20.9 Intake & Output: Intake and Output for Last 24 Hours 08/22/24 08/23/24 08/24/24 23:59 23:59 23:59 Intake Total 1200 / 1200 760 / 760 220 / 220 Output Total 600 / 600 900 / 900 500 / 500 Balance 600 / 600 -140 / -140 -280 / -280 Lab / Micro Data 08/19/24 05:34 08/21/24 05:22 Micro: Microbiology 08/20/24 11:55 Stool Stool Occult Blood (SHAWANDA) - Final Occult Blood Positive Physical Exam Const alert Constitutional Narrative: Appropriate, making good eye contact. Asking when he can go home. Resp normal respiratory effort Resp Narrative: Diffuse expiratory wheezing. No conversational dyspnea. Lying flat in bed withno respiratory distress. Denies shortness of breath. Not coughing. Effort and Inspection: Negative for tachypneic Cardio regular rate, regular rhythm and no gallops Cardio Narrative: No ectopy GI normal to inspection, nondistended, normoactive bowel sounds, soft to palpation and non-tender Extremity no calf tenderness General Extremity: Negative for edema Psych Psych Narrative: Assessment & Plan Assessment/Plan (1) Physical debility: (2) Acute cerebrovascular accident (CVA): (3) Cognitive dysfunction: (4) Wernickes encephalopathy: (5) History of alcoholism: (6) Oropharyngeal dysphagia: (7) Right hemiparesis: (8) Paresthesias: (9) Ataxia: (10) Facial droop: (11) Normochromic normocytic anemia: (12) History of depression: (13) COPD (chronic obstructive pulmonary disease): QUALIFIERS: COPD type: unspecified COPD Qualified Code(s): J44.9 - Chronic obstructive pulmonary disease, unspecified (14) HTN (hypertension): QUALIFIERS: Hypertension type: primary hypertension Qualified Code(s): I10 - Essential (primary) hypertension (15) Hyperlipidemia: QUALIFIERS: Hyperlipidemia type: unspecified Qualified Code(s): E78.5 - Hyperlipidemia, unspecified (16) Tobacco abuse: (17) Prothrombin gene mutation: (18) Nonobstructive atherosclerosis of coronary artery: (19) Thoracic aortic aneurysm (TAA): QUALIFIERS: Thoracic aorta location: unspecified Presence of rupture: without rupture Qualified Code(s): I71.20 - Thoracic aortic aneurysm, without rupture, unspecified (20) AAA (abdominal aortic aneurysm) without rupture: QUALIFIERS: Abdominal aorta location: unspecified Qualified Code(s): I71.40 - Abdominal aortic aneurysm, without rupture, unspecified (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 Continue therapy 2. Daughter needed to come in for family training tomorrow 3. Encouraged him to increase his fluid intake. He has a full mug of water on his tray table and 4 bottles of bottled water and they are all full. 4. Continue to hold Procardia XL. Systolic blood pressure is only mildly above goal and this is only occasionally. Charges/Coding Visit Charges Inpatient E&M: 46576 Subs Hosp L1 08/24/24 1356 Elen Muñoz DO Cosigner Signature (if applicable): CC: ~ Signed [facility]03-18-2025 Progress note [facility] Medical Records Department [address] [place] [address] Progress Note 08/23/24 1122 MR#: [id number] Acct: [id number] Name: LEO ANGELO Rep #:[id number] : 1945 79 From: Elen Muñoz DO PCP: Dr. Sera Castillo MD Status:ADM I N Location: [place] [address] Subjective Subjective Leo was seen on team rounds today. Afebrile VSS -blood pressure over the past 3 days has ranged from 97/64 to 132/70. Current blood pressure is132/70 with a heart rate of 61. The heart rate has ranged from 55 - 70 over the past 72 hours. Was mildly orthostatic on Friday onVS but, he denied lightheadedness. fluid intake is improving. Maintaining appropriate oxygen saturation on to 100% Oral intake - FOOD eating 50 to 100% of the majority of his meals. Refused breakfast this morning but states he is not a breakfast eater normally. FLUIDS fluid intake on Friday was 1100 cc and on Friday was 1200 cc. He was ordered 1 Liter of NS over Friday night for + orthostatic VS Discussed with nursing - no problems that need addressed Reviewed the THERAPY notes Medication list reviewed. Denies cephalgia, lightheadedness, shortness of breath, chest pain, nausea/vomiting/abdominal pain,dysuria and calf pain. He tells me that every doctor he is ever seen since he was in high school playing football as told and he wheezes. Denies any family history of asthma. Has been prescribed inhalers in the past but will not use them. Objective Data Objective Data Vital Signs: Vital Signs Temp Pulse Resp BP Pulse Ox O2 Del Method FiO2 99.1 F 61 16 132/70 H 94 Room Air 21 08/23/24 04:56 08/23/24 04:56 08/23/24 04:56 08/23/24 04:56 08/23/24 04:56 08/23/24 04:56 08/19/24 22:00 Oxygen Delivery Method Room Air Weight: 133 lb 13.129 oz Body Mass Index (BMI) 20.9 Intake & Output: Intake and Output for Last 24 Hours 08/21/24 08/22/24 08/23/24 23:59 23:59 23:59 Intake Total 1100 / 1100 1200 / 1200 300 / 300 Output Total 1100 / 1100 600 / 600 200 / 200 Balance 0 / 0 600 / 600 100 / 100 Lab / Micro Data 08/19/24 05:34 08/21/24 05:22 Micro: Microbiology 08/20/24 11:55 Stool Stool Occult Blood (SHAWANDA) - Final Occult Blood Positive Physical Exam Const alert Constitutional Narrative: Appropriate, making good eye contact. Asking when he can go home. Resp normal respiratory effort Resp Narrative: Diffuse expiratory wheezing. No conversational dyspnea. Effort and Inspection: Negative for tachypneic Cardio regular rate, regular rhythm and no gallops Cardio Narrative: No ectopy GI normal to inspection, nondistended, normoactive bowel sounds, soft to palpation and non-tender Extremity no calf tenderness General Extremity: Negative for edema Psych Psych Narrative: Cooperative. still impulsive and gets off the toilet and stands up without assisted......staff is having to stand at the door of the BR and remind him to wait for help when getting off the toilet. Heis sleeping welol at night. Goodappetite. Pleasant and cooperative. Assessment & Plan Assessment/Plan (1) Physical debility: (2) Acute cerebrovascular accident (CVA): (3) Cognitive dysfunction: (4) Wernickes encephalopathy: (5) History of alcoholism: (6) Oropharyngeal dysphagia: (7) Right hemiparesis: (8) Paresthesias: (9) Ataxia: (10) Facial droop: (11) Normochromic normocytic anemia: (12) History of depression: (13) COPD (chronic obstructive pulmonary disease): QUALIFIERS: COPD type: unspecified COPD Qualified Code(s): J44.9 - Chronic obstructive pulmonary disease, unspecified (14) HTN (hypertension): QUALIFIERS: Hypertension type: primary hypertension Qualified Code(s): I10 - Essential (primary) hypertension (15) Hyperlipidemia: QUALIFIERS: Hyperlipidemia type: unspecified Qualified Code(s): E78.5 - Hyperlipidemia, unspecified (16) Tobacco abuse: (17) Prothrombin gene mutation: (18) Nonobstructive atherosclerosis of coronary artery: (19) Thoracic aortic aneurysm (TAA): QUALIFIERS: Thoracic aorta location: unspecified Presence of rupture: without rupture Qualified Code(s): I71.20 - Thoracic aortic aneurysm, without rupture, unspecified (20) AAA (abdominal aortic aneurysm) without rupture: QUALIFIERS: Abdominal aorta location: unspecified Qualified Code(s): I71.40 - Abdominal aortic aneurysm, without rupture, unspecified (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 Continue therapy 2. We discussed on rounds that Leo will no longer be allowed to drive due to cognitive dysfunctiondue to Wernicke's encephalopathy, recent additional cognitive deficit due to CVA and poor performance on testing done by D/W ST. He can not even locate his room when he ambulates back from the therapy room. Short term memory is very poor. Per family has been declining cognitively for the last 3-5 years and he gets very irritable at times. they wonder if the Seroquel can be continued at [facility] since he is so much calmer and less irritable since this medication was started. 3. Dtr Suzanne will come in for family training this week to see how he is functioning. 4. He is doing well in therapy. IF he will use the AD with ambulation at home and his dtr manages the medications and finances there is a possibilty he could return home with help. He has a hx of non-compliance. Charges/Coding Visit Charges Inpatient E&M: 29562 Subs Hosp L2 08/24/24 1233 Elen Muñoz DO Cosigner Signature (if applicable): CC: ~ Signed [facility]03-14-2025 Progress note Author Elen Muñoz [facility] Note Date/Time August 20, 2024 6:3 9pm [facility] Medical Records Department [address] [place] [address] Progress Note 08/20/24 1809 MR#: [id number] Acct: [id number] Name: LEO ANGELO Rep #:[id number] : 1945 79 From: Elen Muñoz DO PCP: Dr. Sera Castillo MD Status:ADM I N Location: [place] [address] Subjective Subjective Afebrile Blood pressure this a.m. was 129/67 at 0600 and he received Procardia XL 30 mg. At 10 AM the blood pressure was 99/52 and the 2 PM blood pressure was 84/46. Oral fluid intake is very poor. Per nursing he slept well last night. No agitation today and he has been cooperative with therapy. He had a large bowel movement today. Has not been incontinent. Denies lightheadedness. Also denies cephalgia, chest pain, shortness of breath,palpitations, nausea/vomiting/abdominal pain, dysuria and calf tenderness. Objective Data Objective Data Vital Signs: Vital Signs Temp Pulse Resp BP Pulse Ox O2 Del Method FiO2 97.1 F L 69 18 84/46 L 95 Room Air 21 08/20/24 06:00 08/20/24 14:00 08/20/24 06:00 08/20/24 14:00 08/20/24 07:40 08/20/24 10:00 08/19/24 22:00 Oxygen Delivery Method Room Air Weight: 133 lb 13.129 oz Body Mass Index (BMI) 20.9 Intake & Output: Intake and Output for Last 24 Hours 08/18/24 08/19/24 08/20/24 23:59 23:59 23:59 Intake Total 240 / 240 820 / 820 480 / 480 Output Total 480 / 480 425 / 425 475 / 475 Balance -240 / -240 395 / 395 5 / 5 Lab / Micro Data 08/19/24 05:34 08/19/24 05:34 Labs: Laboratory Results - last 24 hr 08/19/24 05:34: Iron 54 L, TIBC 323, Iron Saturation 17.0, Unsaturated IBC 269 Micro: Microbiology 08/20/24 11:55 Stool Stool Occult Blood (SHAWANDA) - Final Occult Blood Positive Physical Exam Const alert General Appearance: cooperative HEENT HEENT Narrative: MM are dry. The tongue deviates to the left. the tongue is coated but, he denies mouth pain and painful swallowing. Resp normal respiratory effort Resp Narrative: Rare expiratory wheeze. Not tachypneic. Effort and Inspection: able to speak in complete sentences Cardio regular rate, regular rhythm, no murmurs, no rub and no gallops GI normal to inspection, nondistended, normoactive bowel sounds, soft to palpation and non-tender Extremity no calf tenderness and no pedal edema Skin Skin Narrative: no rashes. The skin is dry. Assessment & Plan Assessment/Plan (1) Physical debility: (2) Acute cerebrovascular accident (CVA): (3) Cognitive dysfunction: (4) Wernickes encephalopathy: (5) History of alcoholism: (6) Oropharyngeal dysphagia: (7) Right hemiparesis: (8) Paresthesias: (9) Ataxia: (10) Facial droop: (11) Normochromic normocytic anemia: (12) History of depression: (13) COPD (chronic obstructive pulmonary disease): QUALIFIERS: COPD type: unspecified COPD Qualified Code(s): J44.9 - Chronic obstructive pulmonary disease, unspecified (14) HTN (hypertension): QUALIFIERS: Hypertension type: primary hypertension Qualified Code(s): I10 - Essential (primary) hypertension (15) Hyperlipidemia: QUALIFIERS: Hyperlipidemia type: unspecified Qualified Code(s): E78.5 - Hyperlipidemia, unspecified (16) Tobacco abuse: (17) Prothrombin gene mutation: (18) Nonobstructive atherosclerosis of coronary artery: (19) Thoracic aortic aneurysm (TAA): QUALIFIERS: Thoracic aorta location: unspecified Presence of rupture: without rupture Qualified Code(s): I71.20 - Thoracic aortic aneurysm, without rupture, unspecified (20) AAA (abdominal aortic aneurysm) without rupture: QUALIFIERS: Abdominal aorta location: unspecified Qualified Code(s): I71.40 - Abdominal aortic aneurysm, without rupture, unspecified (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 PLAN: Plan 1. Continue therapy 2. Placed Procardia on hold. Hold ramipril if the systolic is less than 105. 3. Check orthostatics 4. Strongly encouraged increased fluid intake. 5. Recheck a BMP in the a.m. and orthostatics. If blood pressure is still lowwill administer IV fluids. Charges/Coding Visit Charges Inpatient E&M: 65396 Subs Hosp L1 08/20/24 8645 <Electronically signed by Elen Muñoz DO> Elen Muñoz DO Cosigner Signature (if applicable): CC: ~ Signed [facility] Work Phone: [phone] 167-491903-14-2025 Progress note [facility] Medical Records Department [address] [place] [address] Progress Note 08/20/24 180 MR#: [id number] Acct: [id number] Name: LEO ANGELO Rep #:[id number] : 1945 79 From: Elen Muñoz DO PCP: Dr. Sera Castillo MD Status:ADM I N Location: [place] [address] Subjective Subjective Afebrile Blood pressure this a.m. was 129/67 at 0600 and he received Procardia XL 30 mg. At 10 AM the blood pressure was 99/52 and the 2 PM blood pressure was 84/46. Oral fluid intake is very poor. Per nursing he slept well last night. No agitation today and he has been cooperative with therapy. He had a large bowel movement today. Has not been incontinent. Denies lightheadedness. Also denies cephalgia, chest pain, shortness of breath,palpitations, nausea/vomiting/abdominal pain, dysuria and calf tenderness. Objective Data Objective Data Vital Signs: Vital Signs Temp Pulse Resp BP Pulse Ox O2 Del Method FiO2 97.1 F L 69 18 84/46 L 95 Room Air 21 08/20/24 06:00 08/20/24 14:00 08/20/24 06:00 08/20/24 14:00 08/20/24 07:40 08/20/24 10:00 08/19/24 22:00 Oxygen Delivery Method Room Air Weight: 133 lb 13.129 oz Body Mass Index (BMI) 20.9 Intake & Output: Intake and Output for Last 24 Hours 08/18/24 08/19/24 08/20/24 23:59 23:59 23:59 Intake Total 240 / 240 820 / 820 480 / 480 Output Total 480 / 480 425 / 425 475 / 475 Balance -240 / -240 395 / 395 5 / 5 Lab / Micro Data 08/19/24 05:34 08/19/24 05:34 Labs: Laboratory Results - last 24 hr 08/19/24 05:34: Iron 54 L, TIBC 323, Iron Saturation 17.0, Unsaturated IBC 269 Micro: Microbiology 08/20/24 11:55 Stool Stool Occult Blood (SHAWANDA) - Final Occult Blood Positive Physical Exam Const alert General Appearance: cooperative HEENT HEENT Narrative: MM are dry. The tongue deviates to the left. the tongue is coated but, he denies mouth pain and painful swallowing. Resp normal respiratory effort Resp Narrative: Rare expiratory wheeze. Not tachypneic. Effort and Inspection: able to speak in complete sentences Cardio regular rate, regular rhythm, no murmurs, no rub and no gallops GI normal to inspection, nondistended, normoactive bowel sounds, soft to palpation and non-tender Extremity no calf tenderness and no pedal edema Skin Skin Narrative: no rashes. The skin is dry. Assessment & Plan Assessment/Plan (1) Physical debility: (2) Acute cerebrovascular accident (CVA): (3) Cognitive dysfunction: (4) Wernickes encephalopathy: (5) History of alcoholism: (6) Oropharyngeal dysphagia: (7) Right hemiparesis: (8) Paresthesias: (9) Ataxia: (10) Facial droop: (11) Normochromic normocytic anemia: (12) History of depression: (13) COPD (chronic obstructive pulmonary disease): QUALIFIERS: COPD type: unspecified COPD Qualified Code(s): J44.9 - Chronic obstructive pulmonary disease, unspecified (14) HTN (hypertension): QUALIFIERS: Hypertension type: primary hypertension Qualified Code(s): I10 - Essential (primary) hypertension (15) Hyperlipidemia: QUALIFIERS: Hyperlipidemia type: unspecified Qualified Code(s): E78.5 - Hyperlipidemia, unspecified (16) Tobacco abuse: (17) Prothrombin gene mutation: (18) Nonobstructive atherosclerosis of coronary artery: (19) Thoracic aortic aneurysm (TAA): QUALIFIERS: Thoracic aorta location: unspecified Presence of rupture: without rupture Qualified Code(s): I71.20 - Thoracic aortic aneurysm, without rupture, unspecified (20) AAA (abdominal aortic aneurysm) without rupture: QUALIFIERS: Abdominal aorta location: unspecified Qualified Code(s): I71.40 - Abdominal aortic aneurysm, without rupture, unspecified (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 PLAN: Plan 1. Continue therapy 2. Placed Procardia on hold. Hold ramipril if the systolic is less than 105. 3. Check orthostatics 4. Strongly encouraged increased fluid intake. 5. Recheck a BMP in the a.m. and orthostatics. If blood pressure is still lowwill administer IV fluids. Charges/Coding Visit Charges Inpatient E&M: 73171 Subs Hosp L1 08/20/24 1839 Elen Muñoz DO Cosigner Signature (if applicable): CC: ~ Signed [facility]03-13-2025 History and physical note Author Elen Muñoz [facility] Note Date/Time August 19, 2024 5:4 5pm [facility] Medical Records Department [address] [place] [address] History & Physical Exam 08/19/24 0807 MR#: [id number] Acct: [id number] Name: LEO ANGELO Rep #:[id number] : 1945 79 From: Elen Muñoz DO PCP: Dr. Sera Castillo MD Status:ADM I N Location: [place] [id number] Elen Muñoz DO on 08/19/24 at 1745 Addendum Hemoglobin A1c is 5.9 which is consistent with glucose intolerance/prediabetes. 08/19/24 1745<Electronically signed by Elen Muñoz DO> Cosigner Signature (if applicable): cc: Dr. Sera Castillo MD; Dr. Elen Muñoz DO ~* Signed HPI - General General Date of Admission: 08/18/24 Date of Service: 08/19/24 Chief Complaint: Post Stroke Debility HPI Narrative LEO ANGELO, is a 79 YO M with a past medical history of prothrombin gene mutation, tobacco dependence, coronary artery disease, thoracic aortic aneurysm,hyperlipidemia, aneurysm of the right subclavian artery, Wernicke Korsakoff syndrome, remote alcoholism, depression, COPD, hypertension, diverticulosis, GERD and an abdominal aortic aneurysm without rupture (he follows at [facility] for aneurysms). He presented to the ED at [facility] on 08/17/2024 complaining of right-sided weakness. He was also having difficulty with ambulation. The last known well was approximately 8:30 PM the previous day. A stat noncontrast CT brain showed extensive periventricular white matter changes with mildly prominent ventricles and sulci. There was also bifrontal volume loss noted. There was no definitive acute intracranial hemorrhage, mass effect or midline shift. CTA of the head and neck showed acute basilar artery thrombosis, right vertebral artery occlusion, partial thrombosis of the right subclavian artery, greater than 70% stenosis within the left proximal ICA and approximately 50% stenosis in the right proximal ICA. Tele- neurology was consulted. [facility] teleneurology was consulted. The neurologist did not feel the patient would need transfer to [facility] for intervention. The patient was outside the window for TNK. Neurology recommended follow-up with vascular surgery as anoutpatient for left carotid stenosis. He is chronically followed at [facility] for theaneurysms. He was admitted to the hospital on the hospitalist service. He was loaded with aspirin and clopidogrel in the emergency department. He was alreadytaking atorvastatin for hyperlipidemia and this was continued. MRI of the brain, carotid ultrasound, echocardiogram and therapy evaluation was ordered. The MRI showed a small acute infarct in the left thalamus and punctate acute infarcts in the right cerebellum. The carotid ultrasound showed 50 to 69% stenosis of the right and the left extracranial internal carotid arteries. Echocardiogram showed an ejection fraction of 65% with no diastolic dysfunction and no regional wall motion abnormalities. The right ventricle was normal. Theleft and right atria were of normal size with no Doppler evidence of an atrial septal defect. There was no significant valvular heart disease. He was seen by PT/OT/ST and acute rehab was recommended at [facility]. He tells me that prior to the stroke he was independent and driving. He has a walker but, he tells me he doesn't use it. He lives with his in a 1 story house with a basement. He does spend time in the basement. He still smokes. Can not really tell me how much he smokes. He states that some days he does notsmoke at all. Has 2 daughters. Afebrile VSS -the blood pressure has ranged from 118/72 133/76 since he arrived on rehab. Heart rate has ranged from 67-68. Maintaining appropriate oxygen saturation on RA-96 to 98% Oral intake - FOOD he ate 75 to 100% of his supper yesterday. He ate 25 to 49%of his breakfast but tells me he is not generally a breakfast eater. FLUIDS MM are dry and oral fluid intake since arriving on rehab has been poor. Discussed with nursing -he was agitated and restless at admission to rehab. He thought he was in a NH and he wanted to leave. He got one dose of Seroquel 25 mg and calmed down significantly. Slept well last night and he is appropriate with me this morning. Reviewed the THERAPY notes from the other side of the hospital. Medication list reviewed. He last saw vascular surgery at [facility], Dr. Ashleigh Candelario, in August of 2023. He was told to get a repeat US of the abd aorta in 6 months........we have no documentation to say this was done. All lab drawn this morning was personally reviewed. Hemoglobin today is 12.6. It was 10.9 at admission to the hospital and the hemoglobin prior to that was inSeptember 2021 and it was low at 12.7. He is normocytic and normochromic. RDW is normal. Platelets are within normal limits. The sodium is 138 and the potassium is 4.1. Serum bicarb is normal. The BUN is22 with a creatinine of 0.99 which is up from 0.85 at admission to the hospital. GFR is 77. Calcium is normal. Phosphorus is normal and the magnesium is 2. LFTs are normal. Total cholesterol was 155 at admission on 40 mg of atorvastatin and the LDL calculated was 85. The HDL was 58 and triglycerides were 59. I nspoke with his and dtr. He has had a declining memory for at least 5 years. He has been diagnosed with Wernicke's encephalopathy in the past. He issupposed to be taking Celexa but, he won't take it. He gets very anxious at times. HE can also get agitated at times but, has not been physically aggressive. He sleeps in the basement in a recliner for the past few years.....his thinks he sleeps pretty well. He eats less than he used to but, his wt has been stable for the past couple years. His is crippled and can not make it to the hospital but, she would like us to call her for the TEAM meeting. His dtr is going to try and be present in the room for his TEAM meeting. We discussed having to use Seroquel for behavior last evening and theyare OK with this if needed. We are going to continue with PRN Seroquel and monitor for agitation/aggression over the next couple days. EKG showed a normalQTI today. Gricelda tells me that he has not had any alcohol in 10 years. They were very pleasant and informative and thanked me for calling them. [facility], [facility] Medical History (Updated 08/19/24 @ 17:[address] Elen Muñoz DO) Carotid stenosis Wernickes encephalopathy Cognitive dysfunction History of depression History of alcoholism Diverticulosis GERD (gastroesophageal reflux disease) HTN (hypertension) Hyperlipidemia Tobacco abuse Prothrombin gene mutation Aortic mural thrombus Nonobstructive atherosclerosis of coronary artery Thoracic aortic aneurysm (TAA) 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) Alcoholism Major depression COPD (chronic obstructive pulmonary disease) AAA (abdominal aortic aneurysm) without rupture Home Medications ?Medication ?Instructions ?Recorded ?Last Taken ?Type ramipril 10 mg capsule 10 mg PO DAILY BP 04/12/21 0 08/18/24 History aspirin 81 mg chewable tablet 81 mg PO DAILY heart hea lth 03/08/22 08/18/24 History omeprazole 40 mg capsule,delayed 40 mg PO DAILY reflux #30 caps 03/08/22 08/18/24 Rx release nifedipine 30 mg tablet,extended 30 mg PO DAILY BP #90 tabs 03/10/23 08/18/24 Rx release 24 hr atorvastatin 40 mg tablet 40 mg PO QHS cholesteol 08/0708/17/24 History clopidogrel 75 mg tablet 75 mg PO DAILY anticoag #0 t abs 08/18/24 08/18/24 Rx enoxaparin 40 mg/0.4 mL 40 mg subcut DAILY coag 08/0708/18/24 History subcutaneous syringe Allergy/AdvReac Type Severity Reaction Status Date / Time latex Allergy Rash Verified 08/17/24 05:56 Family History Mother CVA (cerebral vascular accident) Surgical History History of total right hip replacement History of left heart catheterization (09/11/18) Social History (Updated 08/19/24 @ 10:[address] Elen Muñoz DO) household members: spouse number of children: 2 current occupational status: retired Smoking Status: Current every day smoker tobacco type: cigarettes alcohol intake: former details: He denies but, the last progress note from [facility] from August of 2023 christian substance use type: does not use caffeine: Yes Type: coffee ROS Review of Systems ROS Unobtainable: other Details: He is having some difficulty answering my questions and I have to repeat them. Also having to repeat commands and give voice and visual cues. ; Denies due to encephalopathy, due to endotracheal tube, due to mental condition or due to mental status Constitutional Constitutional: Reports weakness; Denies anorexia, change in weight, chills, difficulty sleeping, fatigue, fever(s), night sweats, weight gain or weight loss Eyes Eyes: Denies blurry vision, change in vision, discharge from eye(s), eye pain orloss of vision ENT HEENT: Denies abnormal hearing, dysphagia, headache(s), hearing loss, nasal congestion or sore throat Cardiovascular Cardiovascular: Reports weakness in extremities; Denies chest pain, dyspnea on exertion, edema, lightheadedness, orthopnea, palpitations, paroxysmal nocturnal dyspnea, racing heartbeat or syncope Respiratory/Chest Respiratory/Chest: Reports wheezing; Denies cough, dyspnea, portable oxygen @ home, productive cough, shortness of breath at rest or shortness of breath with exertion Gastrointestinal Gastrointestinal: Denies abdominal pain, constipation, diarrhea, dyspepsia, hematemesis, hematochezia, nausea, odynophagia or vomiting Genitourinary Genitourinary: Denies dysuria, hematuria, nocturia, urinary frequency, urinary hesitancy, urinary incontinence or urinary urgency Musculoskeletal Musculoskeletal: Denies back pain, joint pain, joint swelling or neck pain Neurologic Neurologic: Reports confusion, disequilibrium, focal weakness and paresthesias; Denies dizziness, headache(s), seizures, tremor(s) or vertigo Psychiatric Psychiatric: Denies anxiety, depression, homicidal ideation or suicidal ideation Endocrine Endocrinology: Denies change in body appearance, polydipsia or polyuria Hematologic/Lymphatic Hematologic/Lymphatic: Reports easy bleeding and easy bruising; Denies lymphadenopathy Allergic/Immunologic Allergic/Immunologic: Denies rhinitis, eczemia or asthma Vital Signs Vital Signs Vital Signs: 08/18/24 15:42 08/18/24 16:27 08/18/24 18:00 Temperature 98.6 F 98.6 F Temperature Source Temporal Temporal Pulse Rate 67 67 Respiratory Rate 15 16 Respiratory Effort Normal Non-Labored Respiratory Depth Normal Respiratory Pattern Normal Blood Pressure 118/70 118/70 Blood Pressure Mean 86 86 Blood Pressure Source Monitor Monitor Blood Pressure Position Semi-Fowlers Semi-Fowlers Blood Pressure Location Left Arm Left Arm Pulse Ox 98 96 Oxygen Delivery Method Room Air Room Air Room Air 08/18/24 20:58 08/19/24 06:00 Temperature 97.8 F Temperature Source Temporal Pulse Rate 68 Respiratory Rate 17 Respiratory Effort Normal Non-Labored Respiratory Depth Normal Respiratory Pattern Normal Blood Pressure 133/76 H Blood Pressure Mean 95 Blood Pressure Source Monitor Blood Pressure Position Blood Pressure Location Pulse Ox 96 Oxygen Delivery Method Room Air Room Air Weight Weight: 133 lb 13.129 oz Body Mass Index (BMI) 20.9 Indicators for Scoring Admitted with or Primary Diagnosis of CVA/Stroke: Yes Hx of CVA/Stroke: Yes Modified Cheko Score MRS Score at time of Evaluation: 3-Moderate disability NIHSS NIHSS 1a. Level of Consciousness: Alert; keenly responsive 1b. LOC Questions: Answers BOTH questions correctly. 1c. LOC Commands: Performs both tasks correctly. 2. Best Gaze: Normal 3. Visual: No visual loss 4. Facial Palsy: Minor paralysis (flattened nasolabial fold, asymmetry on smiling) 5a. Left Arm: No drift; arm holds 90 (or 45) degrees for full 10 seconds 5b. Right Arm: No drift; arm holds 90 (or 45) degrees for full 10 seconds 6a. Left Leg: No drift; leg holds 30-degree position for full 5 seconds 6b. Right Leg: No drift; leg holds 30-degree position for full 5 seconds 7. Limb Ataxia: Present in 2 limbs (mild in the RUE and the RLE) 8. Sensory: Uula-ob-zovsctby sensory loss; (Right face, right arm and right leg) 9. Best Language: No aphasia; normal 10. Dysarthria: [id number]-[id number] dysarthria; 11. Extinction and Inattention: No abnormality Total: 5 Stroke Questions Stroke Team Activated: No Physical Exam Const alert and average body habitus Constitutional Narrative: Oriented to person, month and knows he is in a hospital. Could not tell me why he is int the hospital. Could not tell me which hospital. He was cooperative with me and pleasant but, at arrival to rehab he was very agitated and restless and trying to leave. He had 1 dose os Seroquel 25 mg and he has been fine sincethen. Family may have contributed to the agitation. I was told by staff that family was yelling at him telling him that he had to stay here. General Appearance: cooperative and well kempt HEENT HEENT Narrative: MM are dry. The tongue deviates to the left. the tongue is coated but, he denies mouth pain and painful swallowing. Eyes PERRL, EOMs intact bilaterally, conjunctivae normal and no scleral icterus Eyes Narrative: No DC from the eyes and no mattering of the eyelashes. No nystagmus General Eye: normal appearance of both eyes and normal light reflex Neck supple, no JVD, No nodes and no carotid bruits General: trachea midline Chest Chest: symmetrical chest wall rise Resp normal respiratory effort Resp Narrative: Not tachypneic. No accessory muscle use. He has diffuse mild exp wheezing. Denies a craving for cigarettes. Can tell really tell me how much he smokes. Not coughing with deep breathing. No pursed lip breathing. Effort and Inspection: able to speak in complete sentences Cardio regular rate, regular rhythm, S1 normal heart sound, S2 normal heart sound, no murmurs, no rub, no gallops and no JVD Cardio Narrative: PMI is displaced medial and inferior.......more likely than not due to hyperinflation due to COPD. No ectopy. No chest pain, no palpitations and no complaints of shortness of breath. GI normal to inspection, nondistended, normoactive bowel sounds, soft to palpation and non-tender GI Narrative: I do not hear any bruits in the and but, the abd aorta feels dilated and I can feel it pulsate through the abd wall.......he is thin. NO masses. No guarding with palpation. no CVA tenderness Extremity no calf tenderness and no pedal edema Skin no wounds Skin Narrative: no rashes. The skin is dry. General Skin Exam: no breakdown Neuro Neuro Narrative: He has a R facial droop that improves with showing me his teeth. He has decreased sensation in the R face, RUE and the RLE. Mild ataxia with the RUE and the R LE. NO drift in any extremity. No extinction, no visual field cuts........sometimes difficult to get him to follow my commands and the exam istaking longer than usual because I have to keep cuing. him. Speech is slurred. I did not do a Romberg or ambulate him. will observe when he up with PT. Not always able to answer simple questions and says I don't know fairly often. Seems better with remote hx than recent hx. He was able to tell me his age and the month. No tremors. No rigidity. He has a history of Warnicke's encephalopathy secondary to chronic alcohol abuseand we are not familiar with his baseline for the past few years. Psych cooperative, denies hallucinations and denies suicidal ideation Psych Narrative: Thought processing is slow and sometimes forgets what I asked him. He is a little restless/fidgety in the bed but, not agitated. Not always making good eye contact with me and I have to keep telling me to look at me. Poor historian. Tells me that he is depressed.........because his first . He tells me that she in a car accident 50 years ago. He also tells me thathe has been to his current 50 years. Denies insomnia and tells me that there has been no change in appetite recently. Appearance: appropriate; Negative for unkempt Activity / Motor Behavior: fidgetting Results Lab / Micro Data 08/19/24 05:34 08/19/24 05:34 Labs: Laboratory Results - last 24 hr 08/19/24 05:34: WBC 5.3, RBC 4.23 L, Hgb 12.6 L, Hct 37.5 L, MCV 88.7, MCH 29.8,MCHC 33.6, RDW Std Deviation 43.7, RDW Coeff of Michael 13.5, Plt Count 227, MPV 9.7, Immature Gran % (Auto) 0.200, Neut % (Auto) 55.8, Lymph % (Auto) 26.8, Fergus% (Auto) 13.5 H, Eos % (Auto) 2.7, Baso % (Auto) 1.0, Absolute Neuts (auto) 2.9,Absolute Lymphs (auto) 1.41, Nucleated RBC % 0, Sodium 138, Potassium 4.1, Chloride 102, Carbon Dioxide 23.5, Anion Gap 12, BUN 22 H, Creatinine 0.99, Estim Creat Clear Calc 51.09, Est GFR (MDRD) Non-Af 77, BUN/Creatinine Ratio 22.7 H, Glucose 99, Calcium 9.3, Phosphorus 3.9, Magnesium 2.0, Total Bilirubin 0.48, AST 20, ALT 9, Alkaline Phosphatase 86, Total Protein 6.2, Albumin 3.8, Globulin 2.4, Albumin/Globulin Ratio 1.6 Assessment & Plan Assessment/Plan (1) Physical debility: (2) Acute cerebrovascular accident (CVA): PLAN: The initial MRI that was done on the day he presented to the emergency room, less than 24 hours after last known well, showed a small acute infarct in the left thalamus. There were also punctate acute infarcts in the right cerebellum. I suspect a repeat MRI would show a larger area of infarction sincehe has R facial droop, tongue deviates to the R, he has weakness and numbness inthe face, R arm and R leg and he has ataxia with the RE and the RLE. 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 (3) Cognitive dysfunction: PLAN: He had baseline cognitive dysfunction for 3-5 years prior to the stroke. He was still driving. I suspect the cognition is worse since the stroke and will instruct him and his family he should not drive. (4) Wernickes encephalopathy: (5) History of alcoholism: PLAN: He quit drinking 10 years prior to stroke in 2024. (6) Oropharyngeal dysphagia: (7) Right hemiparesis: (8) Paresthesias: PLAN: Right face, right arm and right leg. (9) Ataxia: PLAN: Right upper extremity and right lower extremity. (10) Facial droop: PLAN: Right side. (11) Normochromic normocytic anemia: PLAN: With decreased iron stores. (12) History of depression: PLAN: Noncompliant with Celexa. (13) COPD (chronic obstructive pulmonary disease): QUALIFIERS: COPD type: unspecified COPD Qualified Code(s): J44.9 - Chronic obstructive pulmonary disease, unspecified PLAN: Wheezing at presentation to rehab. (14) HTN (hypertension): QUALIFIERS: Hypertension type: primary hypertension Qualified Code(s): I10 - Essential (primary) hypertension (15) Hyperlipidemia: QUALIFIERS: Hyperlipidemia type: unspecified Qualified Code(s): E78.5 - Hyperlipidemia, unspecified (16) Tobacco abuse: PLAN: Continues to smoke. (17) Prothrombin gene mutation: PLAN: No hx of VTE that he knows of. Arterial thrombosis with prothrombin gene mutation is uncommon.. He would be at high risk for chronic anticoagulation dueto cognitive dysfunction, poor safety awareness, increased impulsivity and dysequilibrium. Anticoagulation not indicated at this time. (18) Nonobstructive atherosclerosis of coronary artery: (19) Thoracic aortic aneurysm (TAA): QUALIFIERS: Thoracic aorta location: unspecified Presence of rupture: without rupture Qualified Code(s): I71.20 - Thoracic aortic aneurysm, without rupture, unspecified PLAN: He is followed by vascular surgery at [facility]. He was to have a US done in February but, I do not see that this has been done. (20) AAA (abdominal aortic aneurysm) without rupture: QUALIFIERS: Abdominal aorta location: unspecified Qualified Code(s): I71.40 - Abdominal aortic aneurysm, without rupture, unspecified (21) Aneurysm of right subclavian artery: PLAN: With thrombosis. (22) Diverticulosis: (23) GERD (gastroesophageal reflux disease): QUALIFIERS: Esophagitis presence: without esophagitis Qualified Code(s): K21.9 - Gastro-esophageal reflux disease without esophagitis PLAN: Continue pantoprazole (24) Carotid stenosis: QUALIFIERS: Laterality: bilateral Qualified Code(s): I65.23 - Occlusion and stenosis of bilateral carotid arteries PLAN: Carotid ultrasound in August 2024 shows 50 to 69% stenosis of both internalcarotid arteries in the neck. Will need follow-up with vascular surgery going forward. (25) Psychomotor agitation: PLAN: Plan PLAN PT for gait stability OT for ADL's ST for evaluation Analgesics as needed Bowel protocol Fall precautions Assess for Anxiety/Depression - start an antidepressant. Will use Sertraline rather than Celexa. GI prophylaxis -pantoprazole DVT prophylaxis with enoxaparin 40 mg subcu daily and SCDs. Patient is at increased risk for VTE secondary to immobility and prothrombin gene mutation. Follow up with PCP, vascular surgery, neurology and cardiology following DC from [facility] AM lab including CMP, CBC, Mag and Phos -all personally reviewed. Check iron studies, hemoglobin A1c, B12, folate and TSH. Continue Seroquel p.o. as needed and Haldol IM as needed for severe agitation. Will continue to monitor for aggression/agitation over the next 48 hours and if we have to continue giving sedation we will likely start him on scheduled doses of low-dose Seroquel or Risperdal. I discussed this with his daughter Suzanne and his Gricelda and they are okay with this plan. Increase atorvastatin to 80 mg since the calculated LDL on 40 mg of atorvastatinwas 85 and the goal for LDL is to be 70 or less. The HDL was good at 58. Triglycerides are normal. 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 Charges/Coding Visit Charges Inpatient E&M: 93925 Init Hosp L3 08/19/241736 <Electronically signed by Elen Muñoz DO> Cosigner Signature (if applicable): CC: Dr. Sera Castillo MD; Dr. Elen Muñoz DO~ Signed [facility] Work Phone: [phone] History and physical note Author Elen Muñoz [facility] Note Date/Time August 19, 2024 5:4 4pm [facility] Medical Records Department [address] [place] [id number] Post Admission Physician Hannah 08/19/24 1737 MR#: [id number] Acct: [id number] Name: LEO ANGELO Rep #:[id number] : 1945 79 From: Elen Muñoz DO PCP: Dr. Sera Castillo MD Status:ADM I N Location: [place] [address] Admission Information Primary Diagnosis:: Post stroke debility Status Changes from Prescreening?: No changes Identified Actual Problem List:: Cognitve Impr/Memory Loss, Depression, Mobility Impaired, Self Care Deficit, Know.Dfct of Medicaitons, BP, Hypertension and Alteration-Leisure Activ. Potential Problem List:: DVT, Bleeding, Infection, UTI, Aspiration, Falls, Skin Integrity and Depression Risk of Complications DVT: LMWH and BRENDA Hose Bleeding: Monitor Lab Values, Nursing to Teach Precautions for anti-coagulation therapy., Wound, if applicable, to be assessed every shift. and Stroke patients assessed for lethargy or change in status. Infection: Clinical Staff to Monitor for S/S of infection: and S/S of infection include fever, redness, warmth, etc. Urinary Tract Infection: Monitor for frequency, burning, discomfort, or incontinence. and Nursing will obtain urine sample for urinalysis and C&S when ordered. Aspiration: Clinical staff will monitor for coughing, drooling, congestion., Speech will evaluate swallowing and dsyphasia. and Nursing will monitor patient swallowing during meals. Falls: Patient will be evaluated for Fall Precautions and Patient will be placedon Fall Precautions as indicated per protocol. Skin Breakdown: Nursing will assess skin daily using assessment tool. and Nursing will place on Skin Breakdown Precautions as indicated. Pain: Clinical staff will assess patient's pain level per protocol., Medicationswill be given, if needed, and the pain level reassessed. and Other methods: Massage, distraction, decrease stimulus, etc. used PRN. Plan of Care Patient requires physician specializing in physical medicine and rehab oversightto provide close medical supervision of rehab issues including: Pain Management,Sleep Problems, Bowel and Bladder, Medical and co-morbidity Management, DVT prophylaxis, Rehabilitation Leadership and Coordination of treatment team Patient needs Physical Therapy: For a minimum of 1 hour and At least 5 out of 7 days Patient needs Physical Therapy to improve:: Mobility, Strengthening, Transfers, Stretching, ROM, Endurance, Stairs, Gait and Balance Patient needs Occupational Therapy: For a minimum of 1 hour and At least 5 out of 7 days Patient needs Occupational Therapy to improve ADL's incl.: Eating, Grooming, Bathing, Dressing, Toileting, Toilet transfers, Community Reintegration, Higher functioning activities, Household tasks, Adaptive Equipment, Splinting and Otheractivities as determined Patient requires speech therapy: For a minimum of 1 hour and At least 5 out of 7days Patient requires speech therapy for: Swallowing, Cognition, Language Skills and Compensatory Strategies Patient requires 24/7 Rehabilitation Nursing for: Pain Issues, Identifying and preventing risk factors, Monitoring and reporting current medical conditions, Assisting with ambulation, transfer, and all ADL's, Teaching patients about disease process and medications, Family teaching, Providing safe environment, Bowel and Bladder Issues, Skin integrity and Medication Management Patient needs Section Plotter Operator/ Case Management for: Discharge Planning, Arranging Home Equipment or Services and Family Interventions Patient needs Dietary and Nutrition Services for: Adequate Nutrition, Nutritional Supplements and Nutritional Education Goals Goals Patient will remain: free from falls Patient will perform eating at: MOD I level of assist. Patient will perform bed mobility at: MOD I level of assist. Patient will complete transfers from bed to chair at: - (Supervision) Patient will ambulate: - (250 feet with least restrictive device at supervision) Patient will complete upper body dressing at: - (Supervision) Patient will complete lower body dressing at: - Patient will complete toilet transfer at: - (Supervision) Patient will complete toileting at: - (Supervision) Patient will perform bathing at: - (Supervision with upper body bathing and supervision with adaptive equipment as needed for lower body bathing) Patient will complete grooming at: - (Supervision while standing at the sink) Patient will achieve: - (Ascend/descend 1 flight of steps with 1 handrail at supervision so that he has access to his basement/man cave.) Patient will have pain level of: of 3 or less Patient's skin will: remain intact Patient will receive: adequate nutrition. Discharge Planning Pt Prognosis for Sig. Practical Improv. w/in Reasonable Time: Fair Estimated Length of stay (days): 28 Anticipated D/C Destination: TBD Was Preadmission Assessment Accurate?: Yes 08/19/241743 <Electronically signed by Elen Muñoz DO> Cosigner Signature (if applicable): CC: ~ Signed [facility] Work Phone: [phone] History and physical note [facility] Medical Records Department [address] [place] [address] History & Physical Exam 08/19/24 0807 MR#: [id number] Acct: [id number] Name: LEO ANGELO Rep #:[id number] : 1945 79 From: Elen Muñoz DO PCP: Dr. Sera Castillo MD Status:ADM I N Location: [place] [address] Elen Muñoz DO on 08/19/24 at 1745 Addendum Hemoglobin A1c is 5.9 which is consistent with glucose intolerance/prediabetes. 08/19/241744 Cosigner Signature (if applicable): cc: Dr. Sera Castillo MD; Dr. Elen Muñoz DO ~* Signed [facility] - General General Date of Admission: 08/18/24 Date of Service: 08/19/24 Chief Complaint: Post Stroke Debility HPI Narrative LEO ANGELO, is a 79 YO M with a past medical history of prothrombin gene mutation, tobacco dependence, coronary artery disease, thoracic aortic aneurysm,hyperlipidemia, aneurysm of the right subclavian artery, Wernicke Korsakoff syndrome, remote alcoholism, depression, COPD, hypertension, diverticu losis, GERD and an abdominal aortic aneurysm without rupture (he follows at [facility] for aneurysms). He presented to the ED at [facility] on 08/17/2024 complaining of right-sided weakness. He was also having difficulty with ambulation. The last known well was approximately 8:30 PM the previous day. A stat noncontrast CT brain showed extensive periventricular white matter changes with mildly prominent ventricles and sulci. There was also bifrontal volume loss noted. There was no definitive acute intracranial hemorrhage, mass effect or midline shift. CTA of the head and neck showed acute basilar artery thrombosis, right vertebral artery occlusion, partial thrombosis of the right subclavian artery, greater than 70% stenosis within the left proximal ICA and approximately 50% stenosis in the right proximal ICA. Tele-neurology was consulted. [facility] teleneurology was consulted. The neurologist did not feel the patient would need transfer to [facility] for intervention. The patient was outside the window for TNK. Neurology recommended follow-up with vascular surgery as anoutpatient for leftcarotid stenosis. He is chronically followed at [facility] for theaneurysms. He was admitted to the hospital on the hospitalist service. He was loaded with aspirin and clopidogrel in the emergency department. He was alreadytaking atorvastatin for hyperlipidemia and this was continued. MRI of the brain, carotid ultrasound, echocardiogram and therapy evaluation was ordered. The MRI showed a small acute infarct in the left thalamus and punctate acute infarcts in the right cerebellum. The carotid ultrasound showed 50 to 69% stenosis of the right and the left extracranial internal carotid arteries. Echocardiogram showed an ejection fraction of 65% with no diastolic dysfunction and no regional wall motion abnormalities. The right ventricle was normal. Theleft and right atria were of normal size with no Doppler evidence of an atrial septal defect. There was no significant valvular heart disease. He was seen by PT/OT/ST and acute rehab was recommended at [facility]. He tells me that prior to the stroke he was independent and driving. He has a walker but, he tells me he doesn't use it. He lives with his in a 1 story house with a basement. He does spend time in the basement. He still smokes. Can not really tell me how much he smokes. He states that some days he does notsmoke at all. Has 2 daughters. Afebrile VSS -the blood pressure has ranged from 118/72 133/76 since he arrived on rehab. Heart rate has ranged from 67-68. Maintaining appropriate oxygen saturation on RA-96 to 98% Oral intake - FOOD he ate 75 to 100% of his supper yesterday. He ate 25 to 49%of his breakfast but tells me he is not generally a breakfast eater. FLUIDS MM are dry and oral fluid intake since arriving on rehab has been poor. Discussed with nursing -he was agitated and restless at admission to rehab. He thought he was in a NH and he wanted to leave. He got one dose of Seroquel 25 mg and calmed down significantly. Slept well last night and he is appropriate with me this morning. Reviewed the THERAPY notes from the other side of the hospital. Medication list reviewed. He last saw vascular surgery at [facility], Dr. Ashleigh Candelario, in August of 2023. He was told to get a repeat US of the abd aorta in 6 months........we have no documentation to say this was done. All lab drawn this morning was personally reviewed. Hemoglobin today is 12.6. It was 10.9 at admission to the hospital and the hemoglobin prior to that was inSeptember 2021 and it was low at 12.7. Heis normocytic and normochromic. RDW is normal. Platelets are within normal limits. The sodium is 138 and the potassium is 4.1. Serum bicarb is normal. The BUN is22 with a creatinine of 0.99 which is up from 0.85 at admission to the hospital. GFR is 77. Calcium is normal. Phosphorusis normal and the magnesium is 2. LFTs are normal. Total cholesterol was 155 at admission on 40 mg of atorvastatin and the LDL calculated was 85. The HDL was 58 and triglycerides were 59. I nspoke with his and dtr. He has had a declining memory for at least 5 years. He has been diagnosed with Wernicke's encephalopathy in the past. He issupposed to be taking Celexa but, he won't take it. He gets very anxious at times. HE can also get agitated at times but, has not been physically aggressive. He sleeps in the basement in a recliner for the past few years.....his thinks he sleeps pretty well. He eats less than he used to but, his wt has been stable for the past couple years. His is crippled and can not make it to the hospital but, she would like us to call her for the TEAM meeting. His dtr is going to try and be present in the room for his TEAM meeting. We discussed having to use Seroquel for behavior last evening and theyare OK with this if needed. We are going to continue with PRN Seroquel and monitor for agitation/aggression over the next couple days. EKG showed a normalQTI today. Gricelda tells me that he has not had any alcohol in 10 years. They were very pleasant and informative and thanked me for calling them. [facility], [facility] Medical History (Updated 08/19/24 @ 17:[address] Elen Muñoz, ) Carotid stenosis Wernickes encephalopathy Cognitive dysfunction History of depression History of alcoholism Diverticulosis GERD (gastroesophageal reflux disease) HTN (hypertension) Hyperlipidemia Tobacco abuse Prothrombin gene mutation Aortic mural thrombus Nonobstructive atherosclerosis of coronary artery Thoracic aortic aneurysm (TAA) 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) Alcoholism Major depression COPD (chronic obstructive pulmonary disease) AAA (abdominal aortic aneurysm) without rupture Home Medications ?Medication ?Instructions ?Recorded ?Last Taken ?Type ramipril 10 mg capsule 10 mg PO DAILY BP 04/12/21 0 08/18/24 History aspirin 81 mg chewable tablet 81 mg PO DAILY heart hea lth 03/08/22 08/18/24 History omeprazole 40 mg capsule,delayed 40 mg PO DAILY reflux #30 caps 03/08/22 08/18/24 Rx release nifedipine 30 mg tablet,extended 30 mg PO DAILY BP #90 tabs 03/10/23 08/18/24 Rx release 24 hr atorvastatin 40 mg tablet 40 mg PO QHS cholesteol 08/0708/17/24 History clopidogrel 75 mg tablet 75 mg PO DAILY anticoag #0 t abs 08/18/24 08/18/24 Rx enoxaparin 40 mg/0.4 mL 40 mg subcut DAILY coag 08/0708/18/24 History subcutaneous syringe Allergy/AdvReac Type Severity Reaction Status Date / Time latex Allergy Rash Verified 08/17/24 05:56 Family History Mother CVA (cerebral vascular accident) Surgical History History of total right hip replacement History of left heart catheterization (09/11/18) Social History (Updated 08/19/24 @ 10:[address] Elen Muñoz DO) household members: spouse number of children: 2 current occupational status: retired Smoking Status: Current every day smoker tobacco type: cigarettes alcohol intake: former details: He denies but, the last progress note from [facility] from August of 2023 christian substance use type: does not use caffeine: Yes Type: coffee ROS Review of Systems ROS Unobtainable: other Details: He is having some difficulty answering my questions and I have to repeat them. Also having to repeat commands and give voice and visual cues. ; Denies due to encephalopathy, due to endotracheal tube, due to mental condition or due to mental status Constitutional Constitutional: Reports weakness; Denies anorexia, change in weight, chills, difficulty sleeping, fatigue, fever(s), night sweats, weight gain or weight loss Eyes Eyes: Denies blurry vision, change in vision, discharge from eye(s), eye pain orloss of vision ENT HEENT: Denies abnormal hearing, dysphagia, headache(s), hearing loss, nasal congestion or sore throat Cardiovascular Cardiovascular: Reports weakness in extremities; Denies chest pain, dyspnea on exertion, edema, lightheadedness, orthopnea, palpitations, paroxysmal nocturnal dyspnea, racing heartbeat or syncope Respiratory/Chest Respiratory/Chest: Reports wheezing; Denies cough, dyspnea, portable oxygen @ home, productive cough, shortness of breath at rest or shortness of breath with exertion Gastrointestinal Gastrointestinal: Denies abdominal pain, constipation, diarrhea, dyspepsia, hematemesis, hematochezia, nausea, odynophagia or vomiting Genitourinary Genitourinary: Denies dysuria, hematuria, nocturia, urinary frequency, urinary hesitancy, urinary incontinence or urinary urgency Musculoskeletal Musculoskeletal: Denies back pain, joint pain, joint swelling or neck pain Neurologic Neurologic: Reports confusion, disequilibrium, focal weakness and paresthesias; Denies dizziness, headache(s), seizures, tremor(s) or vertigo Psychiatric Psychiatric: Denies anxiety, depression, homicidal ideation or suicidal ideation Endocrine Endocrinology: Denies change in body appearance, polydipsia or polyuria Hematologic/Lymphatic Hematologic/Lymphatic: Reports easy bleeding and easy bruising; Denies lymphadenopathy Allergic/Immunologic Allergic/Immunologic: Denies rhinitis, eczemia or asthma Vital Signs Vital Signs Vital Signs: 08/18/24 15:42 08/18/24 16:27 08/18/24 18:00 Temperature 98.6 F 98.6 F Temperature Source Temporal Temporal Pulse Rate 67 67 Respiratory Rate 15 16 Respiratory Effort Normal Non-Labored Respiratory Depth Normal Respiratory Pattern Normal Blood Pressure 118/70 118/70 Blood Pressure Mean 86 86 Blood Pressure Source Monitor Monitor Blood Pressure Position Semi-Fowlers Semi-Fowlers Blood Pressure Location Left Arm Left Arm Pulse Ox 98 96 Oxygen Delivery Method Room Air Room Air Room Air 08/18/24 20:58 08/19/24 06:00 Temperature 97.8 F Temperature Source Temporal Pulse Rate 68 Respiratory Rate 17 Respiratory Effort Normal Non-Labored Respiratory Depth Normal Respiratory Pattern Normal Blood Pressure 133/76 H Blood Pressure Mean 95 Blood Pressure Source Monitor Blood Pressure Position Blood Pressure Location Pulse Ox 96 Oxygen Delivery Method Room Air Room Air Weight Weight: 133 lb 13.129 oz Body Mass Index (BMI) 20.9 Indicators for Scoring Admitted with or Primary Diagnosis of CVA/Stroke: Yes Hx of CVA/Stroke: Yes Modified Cheko Score MRS Score at time of Evaluation: 3-Moderate disability NIHSS NIHSS 1a. Level of Consciousness: Alert; keenly responsive 1b. LOC Questions: Answers BOTH questions correctly. 1c. LOC Commands: Performs both tasks correctly. 2. Best Gaze: Normal 3. Visual: No visual loss 4. Facial Palsy: Minor paralysis (flattened nasolabial fold, asymmetry on smiling) 5a. Left Arm: No drift; arm holds 90 (or 45) degrees for full 10 seconds 5b. Right Arm: No drift; arm holds 90 (or 45) degrees for full 10 seconds 6a. Left Leg: No drift; leg holds 30-degree position for full 5 seconds 6b. Right Leg: No drift; leg holds 30-degree position for full 5 seconds 7. Limb Ataxia: Present in 2 limbs (mild in the RUE and the RLE) 8. Sensory: [id number] sensory loss; (Right face, right arm and right leg) 9. Best Language: No aphasia; normal 10. Dysarthria: Wyxm-wm-bhodnqof dysarthria; 11. Extinction and Inattention: No abnormality Total: 5 Stroke Questions Stroke Team Activated: No Physical Exam Const alert and average body habitus Constitutional Narrative: Oriented to person, month and knows he is in a hospital. Could not tell me why he is int the hospital. Could not tell me which hospital. He was cooperative with me and pleasant but, at arrival to rehab he was very agitated and restless and trying to leave. He had 1 dose os Seroquel 25 mg and he hasbeen fine sincethen. Family may have contributed to the agitation. I was told by staff that family was yelling at him telling him that he had to stay here. General Appearance: cooperative and well kempt HEENT HEENT Narrative: MM are dry. The tongue deviates to the left. the tongue is coated but, he denies mouth pain and painful swallowing. Eyes PERRL, EOMs intact bilaterally, conjunctivae normal and no scleral icterus Eyes Narrative: No DC from the eyes and no mattering of the eyelashes. No nystagmus General Eye: normal appearance of both eyes and normal light reflex Neck supple, no JVD, No nodes and no carotid bruits General: trachea midline Chest Chest: symmetrical chest wall rise Resp normal respiratory effort Resp Narrative: Not tachypneic. No accessory muscle use. He has diffuse mild exp wheezing. Denies a craving for cigarettes. Can tell really tell me how much he smokes. Not coughing with deep breathing. No pursed lipbreathing. Effort and Inspection: able to speak in complete sentences Cardio regular rate, regular rhythm, S1 normal heart sound, S2 normal heart sound, no murmurs, no rub, no gallops and no JVD Cardio Narrative: PMI is displaced medial and inferior.......more likely than not due to hyperinflation due to COPD. No ectopy. No chest pain, no palpitations and no complaints of shortness of breath. GI normal to inspection, nondistended, normoactive bowel sounds, soft to palpation and non-tender GI Narrative: I do not hear any bruits in the and but, the abd aorta feels dilated and I can feel it pulsate through the abd wall.......he is thin. NO masses. No guarding with palpation. no CVA tenderness Extremity no calf tenderness and no pedal edema Skin no wounds Skin Narrative: no rashes. The skin is dry. General Skin Exam: no breakdown Neuro Neuro Narrative: He has a R facial droop that improves with showing me his teeth. He has decreased sensation in the R face, RUE and the RLE. Mild ataxia with the RUE and the R LE. NO drift in any extremity. No extinction, no visual field cuts........sometimes difficult to get him to follow my commands and the exam i staking longer than usual because I have to keep cuing. him. Speech is slurred. I did not do a Romberg or ambulate him. will observe when he up with PT. Not always able to answer simple questions andsays I don't know fairly often. Seems better with remote hx than recent hx. He was able to tell me his age and the month. No tremors. No rigidity. He has a history of Warnicke's encephalopathy secondary to chronic alcohol abuseand we are not familiar with his baseline for the past few years. Psych cooperative, denies hallucinations and denies suicidal ideation Psych Narrative: Thought processing is slow and sometimes forgets what I asked him. He is a little restless/fidgety in the bed but, not agitated. Not always making good eye contact with me and I have to keep telling me to look at me. Poor historian. Tells me that he is depressed.........because his first .He tells me that she in a car accident 50 years ago. He also tells me thathe has been to his current 50 years. Denies insomnia and tells me that there has been no change in appetiterecently. Appearance: appropriate; Negative for unkempt Activity / Motor Behavior: fidgetting Results Lab / Micro Data 08/19/24 05:34 08/19/24 05:34 Labs: Laboratory Results - last 24 hr 08/19/24 05:34: WBC 5.3, RBC 4.23 L, Hgb 12.6 L, Hct 37.5 L, MCV 88.7, MCH 29.8,MCHC 33.6, RDW Std Deviation 43.7, RDW Coeff of Michael 13.5, Plt Count 227, MPV 9.7, Immature Gran % (Auto) 0.200, Neut % (Auto) 55.8, Lymph % (Auto) 26.8, Fergus% (Auto) 13.5 H, Eos % (Auto) 2.7, Baso % (Auto) 1.0, AbsoluteNeuts (auto) 2.9,Absolute Lymphs (auto) 1.41, Nucleated RBC % 0, Sodium 138, Potassium 4.1, Chloride 102, Carbon Dioxide 23.5, Anion Gap 12, BUN 22 H, Creatinine 0.99, Estim Creat Clear Calc 51.09, Est GFR (MDRD) Non-Af 77, BUN/Creatinine Ratio 22.7 H, Glucose 99, Calcium 9.3, Phosphorus 3.9, Magnesium 2.0, Total Bilirubin 0.48, AST 20, ALT 9, Alkaline Phosphatase 86, Total Protein 6.2, Albumin 3.8, Globulin 2.4, Albumin/Globulin Ratio 1.6 Assessment & Plan Assessment/Plan (1) Physical debility: (2) Acute cerebrovascular accident (CVA): PLAN: The initial MRI that was done on the day he presented to the emergency room, less than 24 hours after last known well, showed a small acute infarct in the left thalamus. There were also punctate acute infarcts in the right cerebellum. I suspect a repeat MRI would show a larger area of infarction sincehe has R facial droop, tongue deviates to the R, he has weakness and numbness inthe face, Rarm and R leg and he has ataxia with the RE and the RLE. 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 (3) Cognitive dysfunction: PLAN: He had baseline cognitive dysfunction for 3-5 years prior to the stroke. He was still driving. I suspect the cognition is worse since the stroke and will instruct him and his family he should not drive. (4) Wernickes encephalopathy: (5) History of alcoholism: PLAN: He quit drinking 10 years prior to stroke in 2024. (6) Oropharyngeal dysphagia: (7) Right hemiparesis: (8) Paresthesias: PLAN: Right face, right arm and right leg. (9) Ataxia: PLAN: Right upper extremity and right lower extremity. (10) Facial droop: PLAN: Right side. (11) Normochromic normocytic anemia: PLAN: With decreased iron stores. (12) History of depression: PLAN: Noncompliant with Celexa. (13) COPD (chronic obstructive pulmonary disease): QUALIFIERS: COPD type: unspecified COPD Qualified Code(s): J44.9 - Chronic obstructive pulmonary disease, unspecified PLAN: Wheezing at presentation to rehab. (14) HTN (hypertension): QUALIFIERS: Hypertension type: primary hypertension Qualified Code(s): I10 - Essential (primary) hypertension (15) Hyperlipidemia: QUALIFIERS: Hyperlipidemia type: unspecified Qualified Code(s): E78.5 - Hyperlipidemia, unspecified (16) Tobacco abuse: PLAN: Continues to smoke. (17) Prothrombin gene mutation: PLAN: No hx of VTE that he knows of. Arterial thrombosis with prothrombin gene mutation is uncommon.. He would be at high risk for chronic anticoagulation dueto cognitive dysfunction, poor safety awareness, increased impulsivity and dysequilibrium. Anticoagulation not indicated at this time. (18) Nonobstructive atherosclerosis of coronary artery: (19) Thoracic aortic aneurysm (TAA): QUALIFIERS: Thoracic aorta location: unspecified Presence of rupture: without rupture Qualified Code(s): I71.20 - Thoracic aortic aneurysm, without rupture, unspecified PLAN: He is followed by vascular surgery at [facility]. He was to have a US done in February but, I do not see that this has been done. (20) AAA (abdominal aortic aneurysm) without rupture: QUALIFIERS: Abdominal aorta location: unspecified Qualified Code(s): I71.40 - Abdominal aortic aneurysm, without rupture, unspecified (21) Aneurysm of right subclavian artery: PLAN: With thrombosis. (22) Diverticulosis: (23) GERD (gastroesophageal reflux disease): QUALIFIERS: Esophagitis presence: without esophagitis Qualified Code(s): K21.9 - Gastro-esophageal reflux disease without esophagitis PLAN: Continue pantoprazole (24) Carotid stenosis: QUALIFIERS: Laterality: bilateral Qualified Code(s): I65.23 - Occlusion and stenosis of bilateral carotid arteries PLAN: Carotid ultrasound in August 2024 shows 50 to 69% stenosis of both internalcarotid arteries inthe neck. Will need follow-up with vascular surgery going forward. (25) Psychomotor agitation: PLAN: Plan PLAN PT for gait stability OT for ADL's ST for evaluation Analgesics as needed Bowel protocol Fall precautions Assess for Anxiety/Depression - start an antidepressant. Will use Sertraline rather than Celexa. GI prophylaxis -pantoprazole DVT prophylaxis with enoxaparin 40 mg subcu daily and SCDs. Patient is at increased risk for VTE secondary to immobility and prothrombin gene mutation. Follow up with PCP, vascular surgery, neurology and cardiology following DC from [facility] AM lab including CMP, CBC, Mag and Phos -all personally reviewed. Check iron studies, hemoglobin A1c, B12, folate and TSH. Continue Seroquel p.o. as needed and Haldol IM as needed for severe agitation. Will continue to monitor for aggression/agitation over the next 48 hours and if we have to continue giving sedation we will likely start him on scheduled doses of low-dose Seroquel or Risperdal. I discussed this with hisdaughter Suzanne and his Gricelda and they are okay with this plan. Increase atorvastatin to 80 mg since the calculated LDL on 40 mg of atorvastatinwas 85 and the goalfor LDL is to be 70 or less. The HDL was good at 58. Triglycerides are normal. 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 Charges/Coding Visit Charges Inpatient E&M: 02259 Init Hosp L3 08/19/24 1739 Cosigner Signature (if applicable): CC: Dr. Sera Castillo MD; Dr. Elen Muñoz DO~ Signed [facility]03-13-2025 History and physical note [facility] Medical Records Department [address] [place] [address] Post Admission Physician Eval 08/19/24 1737 MR#: [id number] Acct: [id number] Name: LEO ANGELO Rep #:[id number] : 1945 79 From: Elen Muñoz DO PCP: Dr. Sera Castillo MD Status:ADM I N Location: [place] [address] Admission Information Primary Diagnosis:: Post stroke debility Status Changes from Prescreening?: No changes Identified Actual Problem List:: Cognitve Impr/Memory Loss, Depression, Mobility Impaired, Self Care Deficit, Know.Dfct of Medicaitons, BP, Hypertension and Alteration- Leisure Activ. Potential Problem List:: DVT, Bleeding, Infection, UTI, Aspiration, Falls, Skin Integrity and Depression Risk of Complications DVT: LMWH and BRENDA Hose Bleeding: Monitor Lab Values, Nursing to Teach Precautions for anti-coagulation therapy., Wound, ifapplicable, to be assessed every shift. and Stroke patients assessed for lethargy or change in status. Infection: Clinical Staff to Monitor for S/S of infection: and S/S of infection include fever, redness, warmth, etc. Urinary Tract Infection: Monitor for frequency, burning, discomfort, or incontinence. and Nursing will obtain urine sample for urinalysis and C&S when ordered. Aspiration: Clinical staff will monitor for coughing, drooling, congestion., Speech will evaluate swallowing and dsyphasia. and Nursing will monitor patient swallowing during meals. Falls: Patient will be evaluated for Fall Precautions and Patient will be placedon Fall Precautionsas indicated per protocol. Skin Breakdown: Nursing will assess skin daily using assessment tool. and Nursing will place on Skin Breakdown Precautions as indicated. Pain: Clinical staff will assess patient's pain level per protocol., Medicationswill be given, if needed, and the pain level reassessed. and Other methods: Massage, distraction, decrease stimulus, etc. used PRN. Plan of Care Patient requires physician specializing in physical medicine and rehab oversightto provide close medical supervision of rehab issues including: Pain Management,Sleep Problems, Bowel and Bladder, Medical and co-morbidity Management, DVT prophylaxis, Rehabilitation Leadership and Coordination of treat ment team Patient needs Physical Therapy: For a minimum of 1 hour and At least 5 out of 7 days Patient needs Physical Therapy to improve:: Mobility, Strengthening, Transfers, Stretching, ROM, Endurance, Stairs, Gait and Balance Patient needs Occupational Therapy: For a minimum of 1 hour and At least 5 out of 7 days Patient needs Occupational Therapy to improve ADL's incl.: Eating, Grooming, Bathing, Dressing, Toileting, Toilet transfers, Community Reintegration, Higher functioning activities, Household tasks, Adaptive Equipment, Splinting and Otheractivities as determined Patient requires speech therapy: For a minimum of 1 hour and At least 5 out of 7days Patient requires speech therapy for: Swallowing, Cognition, Language Skills and Compensatory Strategies Patient requires 24/ Rehabilitation Nursing for: Pain Issues, Identifying and preventing risk factors, Monitoring and reporting current medical conditions, Assisting with ambulation, transfer, and all ADL's, Teaching patients about disease process and medications, Family teaching, Providing safe environment, Bowel and Bladder Issues, Skin integrity and Medication Management Patient needs Section Plotter Operator/ Case Management for: Discharge Planning, Arranging Home Equipment orServices and Family Interventions Patient needs Dietary and Nutrition Services for: Adequate Nutrition, Nutritional Supplements and Nutritional Education Goals Goals Patient will remain: free from falls Patient will perform eating at: MOD I level of assist. Patient will perform bed mobility at: MOD I level of assist. Patient will complete transfers from bed to chair at: - (Supervision) Patient will ambulate: - (250 feet with least restrictive device at supervision) Patient will complete upper body dressing at: - (Supervision) Patient will complete lower body dressing at: - Patient will complete toilet transfer at: - (Supervision) Patient will complete toileting at: - (Supervision) Patient will perform bathing at: - (Supervision with upper body bathing and supervision with adaptive equipment as needed for lower body bathing) Patient will complete grooming at: - (Supervision while standing at the sink) Patient will achieve: - (Ascend/descend 1 flight of steps with 1 handrail at supervision so that hehas access to his basement/man cave.) Patient will have pain level of: of 3 or less Patient's skin will: remain intact Patient will receive: adequate nutrition. Discharge Planning Pt Prognosis for Sig. Practical Improv. w/in Reasonable Time: Fair Estimated Length of stay (days): 28 Anticipated D/C Destination: TBD Was Preadmission Assessment Accurate?: Yes 08/19/24 3327 Cosigner Signature (if applicable): CC: ~ Signed [facility]03-13-2025 [facility] Medical Records Department [address] [place] [address] History Physical Exam 08/19/24 0807 MR#: [id number] Acct: [id number] Name: LEO ANGELO Rep #: [id number] : 1945 79 From: Elen Muñoz DO PCP: Dr. Sera Castillo MD Status:ADM IN Location: [place] [address] Elen Muñoz DO on 08/19/24 at 1745 Addendum Hemoglobin A1c is 5.9 which is consistent with glucose intolerance/prediabetes. 08/19/241744 Cosigner Signature (if applicable): cc: Dr. Sera Castillo MD; Dr. Elen Muñoz DO * Signed HPI - General General Date of Admission: 08/18/24 Date of Service: 08/19/24 Chief Complaint: Post Stroke Debility HPI Narrative LEO ANGELO, is a 79 YO M with a past medical history of prothrombin gene mutation, tobacco dependence, coronary artery disease, thoracic aortic aneurysm, hyperlipidemia, aneurysm of the right subclavian artery, Wernicke Korsakoff syndrome, remote alcoholism, depression, COPD, hypertension, diverticulosis, GERD and an abdominal aortic aneurysm without rupture (he follows at [facility] for aneurysms). He presented to the ED at [facility] on 08/17/2024 complaining of right- sided weakness. He was also having difficulty with ambulation. The last known well was approximately 8:30 PM the previous day. A stat noncontrast CT brain showed extensive periventricular white matter changes with mildly prominent ventricles and sulci. There was also bifrontal volume loss noted. There was no definitive acute intracranial hemorrhage, mass effect or midline shift. CTA of the head and neck showed acute basilar artery thrombosis, right vertebral artery occlusion, partial thrombosis of the right subclavian artery, greater than 70% stenosis within the left proximal ICA and approximately 50% stenosis in the right proximal ICA. Tele- neurology was consulted. [facility] was consulted. The neurologist did not feel the patient would need transfer to [facility] for intervention. The patient was outside the window for TNK. Neurology recommended follow-up with vascular surgery as an outpatient for left carotid stenosis. He is chronically followed at [facility] for the aneurysms. He was admitted to the hospital on the hospitalist service. He was loaded with aspirin and clopidogrel in the emergency department. He was already taking atorvastatin for hyperlipidemia and this was continued. MRI of the brain, carotid ultrasound, echocardiogram and therapy evaluation was ordered. The MRI showed a small acute infarct in the left thalamus and punctate acute infarcts in the right cerebellum. The carotid ultrasound showed 50 to 69% stenosis of the right and the left extracranial internal carotid arteries. Echocardiogram showed an ejection fraction of 65% with no diastolic dysfunction and no regional wall motion abnormalities. The right ventricle was normal. The left and right atria were of normal size with no Doppler evidence of an atrial septal defect. There was no significant valvular heart disease. He was seen by PT/OT/ST and acute rehab was recommended at [facility]. He tells me that prior to the stroke he was independent and driving. He has a walker but, he tells me he doesn't use it. He lives with his in a 1 story house with a basement. He does spend time in the basement. He still smokes. Can not really tell me how much he smokes. He states that some days he does not smoke at all. Has 2 daughters. Afebrile VSS -the blood pressure has ranged from 118/72 133/76 since he arrived on rehab. Heart rate has ranged from 67-68. Maintaining appropriate oxygen saturation on RA-96 to 98% Oral intake - FOOD he ate 75 to 100% of his supper yesterday. He ate 25 to 49% of his breakfast but tells me he is not generally a breakfast eater. FLUIDS MM are dry and oral fluid intake since arriving on rehab has been poor. Discussed with nursing -he was agitated and restless at admission to rehab. He thought he was in a NH and he wanted to leave. He got one dose of Seroquel 25 mg and calmed down significantly. Slept well last night and he is appropriate with me this morning. Reviewed the THERAPY notes from the other side of the hospital. Medication list reviewed. He last saw vascular surgery at [facility], Dr. Ashleigh Candelario, in August of 2023. He was told to get a repeat US of the abd aorta in 6 months........we have no documentation to say this was done. All lab drawn this morning was personally reviewed. Hemoglobin today is 12.6. It was 10.9 at admission to the hospital and the hemoglobin prior to that was in February 2022 and it was low at 12.7. He is normocytic and normochromic. RDW is normal. Platelets are within normal limits. The sodium is 138 and the potassium is 4.1. Serum bicarb is normal. The BUN is 22 with a creatinine of 0.99 which is up from 0.85 at admission to the hospit (more content not included)...[facility]03-12-2025 Discharge summary [facility] Medical Records Department [address] [place] [address] Discharge Summary 08/18/24 1429 MR#: [id number] Acct: [id number] Name: LEO ANGELO Rep #:[id number] : 1945 79 From: Enzo Mann DO PCP: Dr. Sera Castillo MD Status:ADM I N Location: ICU CVICU 3-1 Providers Date of Admission: 08/17/24 Primary Care Physician: Dr. Sera Castillo MD Consultations 08/17/24 08:34 Consult: Tele-Neurology Routine Consulting Provider: [facility] Reason for Consult: Acute Ischemic Stroke/TIA EMERGENT Consult: No MD Notified: Yes Date Notified: 08/17/24 Time Notified: 07:20 Method of Notification: ED Physician Initiated Nursing Unit Staff Notify [facility] of Tele-Neurology Consult: Yes Reason For Visit: CVA Diagnosis Discharge Diagnosis (1) Acute cerebrovascular accident (CVA): Status: Acute Code(s): I63.9 - Cerebral infarction, unspecified Plan: Unknown time of onset. Patient not a candidate for TNK nor is he candidate for LVO retrieval. Patient loaded with aspirin and clopidogrel in the emergency room. Will continue with that on the floor. Patient already on 40 mg of atorvastatin. Continue DAPT for 3 months, then ASA only. MRI brain Shows a small acute infarct of left thalamus. Punctate infarcts of the right cerebellum. Echo shows EF of 65%. (2) Carotid stenosis: Status: Acute Code(s): I65.29 - Occlusion and stenosis of unspecified carotid artery Plan: patient was noted to have carotid stenosis more prominent on the left. Recommend the patient follow-up with vascular surgery as outpatient. Patient has vascular surgery at [facility] for his aortic aneurysms. Check carotid duplex Appears to be unrelated with his current stroke symptoms. (3) Tobacco abuse: Status: Acute Code(s): Z72.0 - Tobacco use Plan: Exam the patient has daughter that smoking is his biggest preventable risk factor. Strongly advisedcessation to help prevent further strokes in the future. Plan Chronic conditions * Aortic aneurysms, thoracic and abdominal. Currently stable. Follow-up with vascular surgery as outpatient. * Peripheral arterial disease, patient noted bilateral subclavian artery partial thrombosis. Follow-up with vascular surgery as outpatient. * Hypertension: Hold antihypertensives for the next 24 hours to maintain cerebral perfusion pressure. VTE prophylaxis with enoxaparin CODE STATUS: Addressed with the patient. Patient wishes to be full code. Discharge to rehab. Medications at Discharge Home Medications ramipril 10 mg capsule 10 mg PO DAILY 04/12/21 atorvastatin 40 mg tablet 40 mg PO DAILY #30 tabs 05/07/21 aspirin 81 mg chewable tablet 81 mg PO DAILY 03/08/22 omeprazole 40 mg capsule,delayed release 40 mg PO DAILY #30 caps 03/08/22 nifedipine 30 mg tablet,extended release 24 hr 30 mg PO DAILY PCP had him on 60 mg but bp too low, please change #90 tabs 03/10/23 clopidogrel 75 mg tablet 75 mg PO DAILY #0 tabs 08/18/24 enoxaparin 40 mg/0.4 mL subcutaneous syringe 40 mg (0.4 mL) subcut DAILY #0 mL 08/18/24 Hospital Course Operations None Procedures 2-D Echocardiogram Summary of Care Provided Minutes Spent on Discharge: 35 Hospital Course: Patient presents with right sided weakness on the . MRI showed acute infarct of the left thalamus and punctate acute infarcts of the right cerebellum. Neurology recommended aspirin and Cappetta grill for 3 months and then aspirin only. Patient was already on atorvastatin will continue that moving forward. Patient also is a smoker and strongly advised to quit. Patientshe does seem motivated toquit. Patient was noted to have a carotid stenosis on CTA as well as ultrasound. As this was not contributing to his current strokes this will not need to be intervened on urgently but patient shouldfollow-up with vascular surgery. Patient was deemed appropriate for rehab and will be discharged there today. Overall the patient's workup and status is currently improved much faster than initial anticipated and patient is being discharged today to acute rehab. Weight / BMI Weight Weight: 60.5 kg Body Mass Index (BMI) 26.0 ABG / Lab / Microbiology Data 08/18/24 04:50 08/18/24 04:50 Laboratory: Laboratory Results - last 24 hr 08/18/24 04:50: WBC 5.1, RBC 4.16 L, Hgb 12.3 L, Hct 36.5 L, MCV 87.7, MCH 29.6,MCHC 33.7, RDW Std Deviation 43.3, RDW Coeff of Michael 13.4, Plt Count 231, MPV 9.7, Immature Gran % (Auto) 0.200, Neut % (Auto) 66.3, Lymph % (Auto) 19.2, Fergus% (Auto) 9.7, Eos % (Auto) 3.6, Baso % (Auto) 1.0, Absolute Neuts (auto) 3.4, Absolute Lymphs (auto) 0.97, Nucleated RBC % 0, Sodium 138, Potassium 3.8, Chloride 102, Carbon Dioxide 23.3, Anion Gap 12, BUN 16, Creatinine 0.79, Estim Creat Clear Calc 56.46, Est GFR (MDRD) Non-Af 90, BUN/Creatinine Ratio 20.2 H, Glucose 92, Calcium 9.3, Triglycerides 59, Cholesterol 155, LDL Cholesterol, Calc 85, VLDL Cholesterol 12, HDL Cholesterol 58, Cholesterol/HDL Ratio 2.66 Radiography Diagnostic Testing: Radiology Impression Carotid Duplex 08/17/24 08:34 Interpretation Summary Moderate (50-69%) stenosis right extracranial internal carotid. Moderate (50-69%) stenosis left extracranial internal carotid. Patent and antegrade vertebrals bilaterally. Ordering Physician: Enzo Mann Performed By: Alaina Ivey RVT and Student D/C Instructions Discharge Diet: Low fat / Low cholesterol DC O2, CPAP, BIPAP Needs Home O2 Discharge instructions: No Meaningful Use Info Meaningful Use Meaningful Use Diagnoses (Choose all that apply): Ischemic CVA CVA Therapy Assessed for PT,OT and/or ST?: Yes Ischemic Stroke Antithrombotic order at d/c?: Yes Dx of Atrial fib/flutter?: No Anticoagulant at discharge?: No Reason anticoagulant not ordered: Treatment not Indicated Statin Dosing Therapy Reference: STATIN DOSE THERAPY REFERENCE: * Patients > 75 years receive moderate or high dose statin therapy. * Patients 75 years or YOUNGER should receive HIGH intensity statin dose unless contraindicated. You will be required to document reason for non-treatment if statin daily dose does not meet guidelines. HIGH DOSE STATIN THERAPY DAILY Atorvastatin > than or = to 40 mg Rosuvastatin > than or = to 20 mg Amlodipine + Atorvastatin > than or = to 2.5/40 mg Ezetimibe + Simvastatin 10/80 mg Simvastatin 80mg Statins at discharge?: Yes Primary Dx Acute Ischemic CVA?: Yes IV thrombolytic ordered during stay?: No Reason IV thrombolytic not ordered: Treatment not Indicated Discharge Plan Admission Admit Date/Time: 08/17/24 07:18 Primary Reason for Your Visit: CVA Attending Provider: Enzo Mann Primary Care Provider: Sera Castillo Consulting Providers: Alec Goyal; Beka Harmon; Pavithra Rodriugez; Nissa Daily; Jocelyn Farley; Riley Justin; Halina Marie; Devan Hung; Almas Huerta; Wilton Curiel; Yaneth Mcelroy; Robert Quintero; Maria T Culp; Matthew Carolina; Cisco Boyle Ty; Jame Vogt; Danny Carrillo; Clovis Beltre; Linda Lemon; Deon Sky Instructions Additional Instructions / Restrictions: Follow-up neurology as outpatient. [facility] [phone]. [facility] [place] [phone]. [facility] [place] [phone]. [facility] [phone]. [facility] [phone] Discharge Orders/Prescriptions Prescriptions: New clopidogrel 75 mg Tablet 75 mg PO DAILY Qty: 0 0RF enoxaparin 40 mg/0.4 mL Syringe 40 mg subcut DAILY Qty: 0 0RF Rx Instructions: Continue while in rehab and then discontinue when discharged from rehab. Continued ramipril 10 mg capsule 10 mg PO DAILY aspirin 81 mg Tablet,Chewable 81 mg PO DAILY omeprazole 40 mg capsule,delayed release(DR/EC) 40 mg PO DAILY Qty: 30 0RF atorvastatin 40 mg tablet 40 mg PO DAILY Qty: 30 11RF nifedipine 30 mg tablet extended release 24hr 30 mg PO DAILY Qty: 90 3RF Referrals / Follow Up: Sera Castillo MD [Primary Care Provider] - Within 2 Weeks Enzo Marina MD [Med Staff - Active Staff] - Within 1 Month Disposition Disposition (needs filled in before D/C Order can be placed): Inpatient Rehab Unit/Facility Charges/Coding Visit Charges Inpatient E&M: 28401 Disch Hosp >30min 08/18/24 1437 Cosigner Signature (if applicable): CC: Dr. Sera Castillo MD; Dr. Enzo Mann DO~ Signed [facility]03-12-2025 [facility] Medical Records Department [address] [place] [address] Discharge Summary 08/18/24 1429 MR#: [id number] Acct: [id number] Name: LEO ANGELO Rep #: [id number] : 1945 79 From: Enzo Mann DO PCP: Dr. Sera Castillo MD Status:ADM IN Location: ICU [id number] Providers Date of Admission: 08/17/24 Primary Care Physician: Dr. Sera Castillo MD Consultations 08/17/24 08:34 Consult: Tele-Neurology Routine Consulting Provider: [facility] Reason for Consult: Acute Ischemic Stroke/TIA EMERGENT Consult: No MD Notified: Yes Date Notified: 08/17/24 Time Notified: 07:20 Method of Notification: ED Physician Initiated Nursing Unit Staff Notify [facility] of Tele-Neurology Consult: Yes Reason For Visit: CVA Diagnosis Discharge Diagnosis (1) Acute cerebrovascular accident (CVA): Status: Acute Code(s): I63.9 - Cerebral infarction, unspecified Plan: Unknown time of onset. Patient not a candidate for TNK nor is he candidate for LVO retrieval. Patient loaded with aspirin and clopidogrel in the emergency room. Will continue with that on the floor. Patient already on 40 mg of atorvastatin. Continue DAPT for 3 months, then ASA only. MRI brain Shows a small acute infarct of left thalamus. Punctate infarcts of the right cerebellum. Echo shows EF of 65%. (2) Carotid stenosis: Status: Acute Code(s): I65.29 - Occlusion and stenosis of unspecified carotid artery Plan: patient was noted to have carotid stenosis more prominent on the left. Recommend the patient follow-up with vascular surgery as outpatient. Patient has vascular surgery at [facility] for his aortic aneurysms. Check carotid duplex Appears to be unrelated with his current stroke symptoms. (3) Tobacco abuse: Status: Acute Code(s): Z72.0 - Tobacco use Plan: Exam the patient has daughter that smoking is his biggest preventable risk factor. Strongly advised cessation to help prevent further strokes in the future. Plan Chronic conditions * Aortic aneurysms, thoracic and abdominal. Currently stable. Follow-up with vascular surgery as outpatient. * Peripheral arterial disease, patient noted bilateral subclavian artery partial thrombosis. Follow-up with vascular surgery as outpatient. * Hypertension: Hold antihypertensives for the next 24 hours to maintain cerebral perfusion pressure. VTE prophylaxis with enoxaparin CODE STATUS: Addressed with the patient. Patient wishes to be full code. Discharge to rehab. Medications at Discharge Home Medications ramipril 10 mg capsule 10 mg PO DAILY 04/12/21 atorvastatin 40 mg tablet 40 mg PO DAILY #30 tabs 05/07/21 aspirin 81 mg chewable tablet 81 mg PO DAILY 03/08/22 omeprazole 40 mg capsule,delayed release 40 mg PO DAILY #30 caps 03/08/22 nifedipine 30 mg tablet,extended release 24 hr 30 mg PO DAILY PCP had him on 60 mg but bp too low, please change #90 tabs 03/10/23 clopidogrel 75 mg tablet 75 mg PO DAILY #0 tabs 08/18/24 enoxaparin 40 mg/0.4 mL subcutaneous syringe 40 mg (0.4 mL) subcut DAILY #0 mL 08/18/24 Hospital Course Operations None Procedures 2-D Echocardiogram Summary of Care Provided Minutes Spent on Discharge: 35 Hospital Course: Patient presents with right sided weakness on the . MRI showed acute infarct of the left thalamus and punctate acute infarcts of the right cerebellum. Neurology recommended aspirin and Cappetta grill for 3 months and then aspirin only. Patient was already on atorvastatin will continue that moving forward. Patient also is a smoker and strongly advised to quit. Patient she does seem motivated to quit. Patient was noted to have a carotid stenosis on CTA as well as ultrasound. As this was not contributing to his current strokes this will not need to be intervened on urgently but patient should follow-up with vascular surgery. Patient was deemed appropriate for rehab and will be discharged there today. Overall the patient's workup and status is currently improved much faster than initial anticipated and patient is being discharged today to acute rehab. Weight / BMI Weight Weight: 60.5 kg Body Mass Index (BMI) 26.0 ABG / Lab / Microbiology Data 08/18/24 04:50 08/18/24 04:50 Laboratory: Laboratory Results - last 24 hr 08/18/24 04:50: WBC 5.1, RBC 4.16 L, Hgb 12.3 L, Hct 36.5 L, MCV 87.7, MCH 29.6, MCHC 33.7, RDW Std Deviation 43.3, RDW Coeff of Michael 13.4, Plt Count 231, MPV 9.7, Immature Gran % (Auto) 0.200, Neut % (Auto) 66.3, Lymph % (Auto) 19.2, Fergus % (Auto) 9.7, Eos % (Auto) 3.6, Baso % (Auto) 1.0, Absolute Neuts (auto) 3.4, Absolute Lymphs (auto) 0.97, Nucleated RBC % 0, Sodium 138, Potassium 3.8, Chloride 102, Carbon Dioxide 23.3, Anion Gap 12, BUN 16, Creatinine 0.79, Estim Creat Clear Calc 56.46, Est GFR (MDRD) Non-Af 90, BUN/Creatinine Ratio 20.2 H (more content not included)...[facility]03-12-2025 Progress note [facility] Medical Records Department [address] [place] [address] Progress Note - Hospitalist 08/18/24 0653 MR#: [id number] Acct: [id number] Name: DOTTIELEO W Rep #:[id number] : 1945 79 From: Enzo Mann DO PCP: Dr. Sera Castillo MD Status:ADM I N [facility] Reason for Visit Reason for Visit: Diagnoses Cerebral infarction, unspecified (08/17/24) Occlusion and stenosis of unspecified carotid artery (08/17/24) Tobacco use (08/17/24) Subjective Subjective Feels well. No new complaints. Objective Data Objective Data Vital Signs: Vital Signs Temp Pulse Resp BP Pulse Ox O2 Del Method 36.1 C L 65 15 165/87 H 95 Room Air 08/18/24 02:00 08/18/24 02:00 08/18/24 02:00 08/18/24 02:00 08/18/24 02:00 08/18/24 02:00 Oxygen Delivery Method Room Air Weight: 60.5 kg Body Mass Index (BMI) 26.0 Intake & Output: Intake and Output for Last 24 Hours 08/16/24 08/17/24 08/18/24 23:59 23:59 23:59 Intake Total 0 / 0 Output Total 1325 / 1625 300 / 300 Balance -1325 / -1625 -300 / -300 Lab / Micro Data 08/18/24 04:50 08/18/24 04:50 Labs: Laboratory Results - last 24 hr 08/18/24 04:50: WBC 5.1, RBC 4.16 L, Hgb 12.3 L, Hct 36.5 L, MCV 87.7, MCH 29.6,MCHC 33.7, RDW Std Deviation 43.3, RDW Coeff of Michael 13.4, Plt Count 231, MPV 9.7, Immature Gran % (Auto) 0.200, Neut % (Auto) 66.3, Lymph % (Auto) 19.2, Fergus% (Auto) 9.7, Eos % (Auto) 3.6, Baso % (Auto) 1.0, Absolute Neuts (auto) 3.4, Absolute Lymphs (auto) 0.97, Nucleated RBC % 0, Sodium 138, Potassium 3.8, Chloride 102, Carbon Dioxide 23.3, Anion Gap 12, BUN 16, Creatinine 0.79, Estim Creat Clear Calc 56.46, Est GFR (MDRD) Non-Af 90, BUN/Creatinine Ratio 20.2 H, Glucose 92, Calcium 9.3, Triglycerides 59, Cholesterol 155, LDL Cholesterol, Calc 85, VLDL Cholesterol 12, HDL Cholesterol 58, Cholesterol/HDL Ratio 2.66 Radiography Diagnostic Testing: Radiology Impression Brain MRI 08/17/24 08:34 IMPRESSION: 1. 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 Punctate acute infarcts in the right cerebellum. 2. Abnormal posterior circulation flow voids, better evaluated on previous CTA. 3. Mild right mastoid effusion. 4. Additional description as above. Findings in impression #1 were discussed by telephone with Dr. Mann at 9:33 am [facility] on 08/17/2024 Reading Location: [id number] Echocardiogram 08/17/24 08:34 Interpretation Summary The estimated ejection fraction is 65 %. No evidence for diastolic dysfunction. Ordering Physician: Enzo Mann Referring Physician: SERA CASTILLO Performed By: Asha Rae RDCS Physical Exam Const alert and no apparent distress HEENT head/scalp atraumatic and moist oral mucous membranes Resp normal respiratory effort and no retractions Extremity normal to inspection Neuro Neuro Narrative: ataxia RUE. Sensorium / Orientation: awake and alert Psych affect normal Assessment & Plan Assessment/Plan (1) Acute cerebrovascular accident (CVA): PLAN: Unknown time of onset. Patient not a candidate for TNK nor is he candidate for LVO retrieval. Patient loaded with aspirin and clopidogrel in the emergency room. Will continue with that on the floor. Patient already on 40 mg of atorvastatin. Continue DAPT for 3 months, then ASA only. MRI brain Shows a small acute infarct of left thalamus. Punctate infarcts of the right cerebellum. Echo shows EF of 65%. (2) Carotid stenosis: PLAN: patient was noted to have carotid stenosis more prominent on the left. Recommend the patient follow-up with vascular surgery as outpatient. Patient has vascular surgery at [facility] for his aortic aneurysms. Check carotid duplex Appears to be unrelated with his current stroke symptoms. (3) Tobacco abuse: PLAN: Exam the patient has daughter that smoking is his biggest preventable riskfactor. Strongly advised cessation to help prevent further strokes in the future. PLAN: Plan Chronic conditions * Aortic aneurysms, thoracic and abdominal. Currently stable. Follow-up with vascular surgery as outpatient. * Peripheral arterial disease, patient noted bilateral subclavian artery partial thrombosis. Follow-up with vascular surgery as outpatient. * Hypertension: Hold antihypertensives for the next 24 hours to maintain cerebral perfusion pressure. VTE prophylaxis with enoxaparin CODE STATUS: Addressed with the patient. Patient wishes to be full code. Discharge to rehab. 08/18/24 [id number] Cosigner Signature (if applicable): CC: ~ Signed [facility]03-12-2025 Progress note Author Pavithra Rodriguez [facility] Note Date/Time August 18, 2024 12: 17pm [facility] Medical Records Department [address] [place] [address] Progress Note - Neurology 08/18/24 1207 MR#: [id number] Acct: [id number] Name: LEO ANGELO Rep #:[id number] : 1945 79 From: Pavithra Rodriguez MD PCP: Dr. Sera Castillo MD Status:ADM I N Location: ICU [place] [address] 3-1 Objective Data Objective Data Vital Signs: Vital Signs Temp Pulse Resp BP Pulse Ox O2 Del Method 98.8 F 65 16 156/82 H 97 Room Air 08/18/24 07:42 08/18/24 07:42 08/18/24 07:42 08/18/24 07:42 08/18/24 07:42 08/18/24 07:42 Oxygen Delivery Method Room Air Weight: 60.5 kg Body Mass Index (BMI) 26.0 Intake & Output: Intake and Output for Last 24 Hours 08/16/24 08/17/24 08/18/24 23:59 23:59 23:59 Intake Total 0 / 0 Output Total 1325 / 1625 450 / 450 Balance -1325 / -1625 -450 / -450 Lab / Micro Data 08/18/24 04:50 08/18/24 04:50 Labs: Laboratory Results - last 24 hr 08/18/24 04:50: WBC 5.1, RBC 4.16 L, Hgb 12.3 L, Hct 36.5 L, MCV 87.7, MCH 29.6,MCHC 33.7, RDW Std Deviation 43.3, RDW Coeff of Michael 13.4, Plt Count 231, MPV 9.7, Immature Gran % (Auto) 0.200, Neut % (Auto) 66.3, Lymph % (Auto) 19.2, Fergus% (Auto) 9.7, Eos % (Auto) 3.6, Baso % (Auto) 1.0, Absolute Neuts (auto) 3.4, Absolute Lymphs (auto) 0.97, Nucleated RBC % 0, Sodium 138, Potassium 3.8, Chloride 102, Carbon Dioxide 23.3, Anion Gap 12, BUN 16, Creatinine 0.79, Estim Creat Clear Calc 56.46, Est GFR (MDRD) Non-Af 90, BUN/Creatinine Ratio 20.2 H, Glucose 92, Calcium 9.3, Triglycerides 59, Cholesterol 155, LDL Cholesterol, Calc 85, VLDL Cholesterol 12, HDL Cholesterol 58, Cholesterol/HDL Ratio 2.66 Radiography Diagnostic Testing: Radiology Impression Carotid Duplex 08/17/24 08:34 Interpretation Summary Moderate (50-69%) stenosis right extracranial internal carotid. Moderate (50-69%) stenosis left extracranial internal carotid. Patent and antegrade vertebrals bilaterally. Ordering Physician: Enzo Mann Performed By: Alaina Ivey RVT and Student Echocardiogram 08/17/24 08:34 Interpretation Summary The estimated ejection fraction is 65 %. No evidence for diastolic dysfunction. Ordering Physician: Enzo Mann Referring Physician: SERA CASTILLO Performed By: Asha Rae RDCS Physical Exam Neuro Neuro Narrative: awake, alert, oriented x3 speech is fluent CN 2-12 intact Motor power 5/5 Sensation: Decreased on the right side RUE and LE ataxia Subject: Neurology Subjective LEO ANGELO is a 79 year old M, who we are seeing in consultation today for advice on the management of stroke and related patient care. He had dizziness while getting up for therapy. No worsening of his symptoms. Assessment and Plan: Stroke Assessment/Plan LEO ANGELO is a 79 M with a history of hypertension hyperlipidemia COPD nicotine dependence and CAD presents with right arm, leg weakness, numbness. 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 MRI: Right cerebellar and left thalamic stroke Posterior circulation stroke likely from Large vessel disease ECHO; EF okay Carotid Duplex: 50-69% bilateral stenosis Plan Continue ASA, plavix for 3 months then ASA alone Please obtain HbA1C Can liberalize neurochecks HTN: Gradual normalization of blood pressure HLD: Continue statin Bilateral ICA stenosis; F/up with vascular surgery routinely as out patient onceout of acute phase PT, OT evaluation. May need rehab Smoking cessation Stroke education Thanks for consult. Spent 40 min in evaluation and management of this patient. 08/18/24 1217 <Electronically signed by Pavithra Rodriguez MD> Cosigner Signature (if applicable): CC: ~ Signed [facility] Work Phone: [phone] 969-988703-12-2025 Progress note [facility] Medical Records Department [address] [place] [address] Progress Note - Neurology 08/18/24 1207 MR#: [id number] Acct: [id number] Name: LEO ANGELO Rep #:[id number] : 1945 79 From: Pavithra Rodriguez MD PCP: Dr. Sera Castillo MD Status:ADM I N Location: ICU [place] [address] 3-1 Objective Data Objective Data Vital Signs: Vital Signs Temp Pulse Resp BP Pulse Ox O2 Del Method 98.8 F 65 16 156/82 H 97 Room Air 08/18/24 07:42 08/18/24 07:42 08/18/24 07:42 08/18/24 07:42 08/18/24 07:42 08/18/24 07:42 Oxygen Delivery Method Room Air Weight: 60.5 kg Body Mass Index (BMI) 26.0 Intake & Output: Intake and Output for Last 24 Hours 08/16/24 08/17/24 08/18/24 23:59 23:59 23:59 Intake Total 0 / 0 Output Total 1325 / 1625 450 / 450 Balance -1325 / -1625 -450 / -450 Lab / Micro Data 08/18/24 04:50 08/18/24 04:50 Labs: Laboratory Results - last 24 hr 08/18/24 04:50: WBC 5.1, RBC 4.16 L, Hgb 12.3 L, Hct 36.5 L, MCV 87.7, MCH 29.6,MCHC 33.7, RDW Std Deviation 43.3, RDW Coeff of Michael 13.4, Plt Count 231, MPV 9.7, Immature Gran % (Auto) 0.200, Neut % (Auto) 66.3, Lymph % (Auto) 19.2, Fergus% (Auto) 9.7, Eos % (Auto) 3.6, Baso % (Auto) 1.0, Absolute Neuts (auto) 3.4, Absolute Lymphs (auto) 0.97, Nucleated RBC % 0, Sodium 138, Potassium 3.8, Chloride 102, Carbon Dioxide 23.3, Anion Gap 12, BUN 16, Creatinine 0.79, Estim Creat Clear Calc 56.46, Est GFR (MDRD) Non-Af 90, BUN/Creatinine Ratio 20.2 H, Glucose 92, Calcium 9.3, Triglycerides 59, Cholesterol 155, LDL Cholesterol, Calc 85, VLDL Cholesterol 12, HDL Cholesterol 58, Cholesterol/HDL Ratio 2.66 Radiography Diagnostic Testing: Radiology Impression Carotid Duplex 08/17/24 08:34 Interpretation Summary Moderate (50-69%) stenosis right extracranial internal carotid. Moderate (50-69%) stenosis left extracranial internal carotid. Patent and antegrade vertebrals bilaterally. Ordering Physician: Enzo Mann Performed By: Alaina Ivey RVT and Student Echocardiogram 08/17/24 08:34 Interpretation Summary The estimated ejection fraction is 65 %. No evidence for diastolic dysfunction. Ordering Physician: Enzo Mann Referring Physician: SERA CASTILLO Performed By: Asha Rae, [facility] Physical Exam Neuro Neuro Narrative: awake, alert, oriented x3 speech is fluent CN 2-12 intact Motor power 5/5 Sensation: Decreased on the right side RUE and LE ataxia Subject: Neurology Subjective LEO ANGELO is a 79 year old M, who we are seeing in consultation today for advice on the management of stroke and related patient care. He had dizziness while getting up for therapy. No worsening of his symptoms. Assessment and Plan: Stroke Assessment/Plan LEO ANGELO is a 79 M with a history of hypertension hyperlipidemia COPD nicotine dependence and CAD presents with right arm, leg weakness, numbness. 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 MRI: Right cerebellar and left thalamic stroke Posterior circulation stroke likely from Large vessel disease ECHO; EF okay Carotid Duplex: 50-69% bilateral stenosis Plan Continue ASA, plavix for 3 months then ASA alone Please obtain HbA1C Can liberalize neurochecks HTN: Gradual normalization of blood pressure HLD: Continue statin Bilateral ICA stenosis; F/up with vascular surgery routinely as out patient onceout of acute phase PT, OT evaluation. May need rehab Smoking cessation Stroke education Thanks for consult. Spent 40 min in evaluation and management of this patient. 08/18/24 1217 Cosigner Signature (if applicable): CC: ~ Signed [facility]03-12-2025 Progress note Author Enzo Mann [facility] Note Date/Time August 18, 2024 2:2 9pm [facility] Medical Records Department [address] [place] [address] Progress Note - Hospitalist 08/18/24 0653 MR#: [id number] Acct: [id number] Name: LEO ANGELO Rep #:[id number] : 1945 79 From: Enzo Mann DO PCP: Dr. Sera Castillo MD Status:ADM I N Location: ICU [facility]20 3-1 Reason for Visit Reason for Visit: Diagnoses Cerebral infarction, unspecified (08/17/24) Occlusion and stenosis of unspecified carotid artery (08/17/24) Tobacco use (08/17/24) Subjective Subjective Feels well. No new complaints. Objective Data Objective Data Vital Signs: Vital Signs Temp Pulse Resp BP Pulse Ox O2 Del Method 36.1 C L 65 15 165/87 H 95 Room Air 08/18/24 02:00 08/18/24 02:00 08/18/24 02:00 08/18/24 02:00 08/18/24 02:00 08/18/24 02:00 Oxygen Delivery Method Room Air Weight: 60.5 kg Body Mass Index (BMI) 26.0 Intake & Output: Intake and Output for Last 24 Hours 08/16/24 08/17/24 08/18/24 23:59 23:59 23:59 Intake Total 0 / 0 Output Total 1325 / 1625 300 / 300 Balance -1325 / -1625 -300 / -300 Lab / Micro Data 08/18/24 04:50 08/18/24 04:50 Labs: Laboratory Results - last 24 hr 08/18/24 04:50: WBC 5.1, RBC 4.16 L, Hgb 12.3 L, Hct 36.5 L, MCV 87.7, MCH 29.6,MCHC 33.7, RDW Std Deviation 43.3, RDW Coeff of Michael 13.4, Plt Count 231, MPV 9.7, Immature Gran % (Auto) 0.200, Neut % (Auto) 66.3, Lymph % (Auto) 19.2, Fergus% (Auto) 9.7, Eos % (Auto) 3.6, Baso % (Auto) 1.0, Absolute Neuts (auto) 3.4, Absolute Lymphs (auto) 0.97, Nucleated RBC % 0, Sodium 138, Potassium 3.8, Chloride 102, Carbon Dioxide 23.3, Anion Gap 12, BUN 16, Creatinine 0.79, Estim Creat Clear Calc 56.46, Est GFR (MDRD) Non-Af 90, BUN/Creatinine Ratio 20.2 H, Glucose 92, Calcium 9.3, Triglycerides 59, Cholesterol 155, LDL Cholesterol, Calc 85, VLDL Cholesterol 12, HDL Cholesterol 58, Cholesterol/HDL Ratio 2.66 Radiography Diagnostic Testing: Radiology Impression Brain MRI 08/17/24 08:34 IMPRESSION: 1. 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 Punctate acute infarcts in the right cerebellum. 2. Abnormal posterior circulation flow voids, better evaluated on previous CTA. 3. Mild right mastoid effusion. 4. Additional description as above. Findings in impression #1 were discussed by telephone with Dr. Mann at 9:33 am [facility] on 08/17/2024 Reading Location: [id number] Echocardiogram 08/17/24 08:34 Interpretation Summary The estimated ejection fraction is 65 %. No evidence for diastolic dysfunction. Ordering Physician: Enzo Mann Referring Physician: SERA CASTILLO Performed By: Asha Rae RDCS Physical Exam Const alert and no apparent distress HEENT head/scalp atraumatic and moist oral mucous membranes Resp normal respiratory effort and no retractions Extremity normal to inspection Neuro Neuro Narrative: ataxia RUE. Sensorium / Orientation: awake and alert Psych affect normal Assessment & Plan Assessment/Plan (1) Acute cerebrovascular accident (CVA): PLAN: Unknown time of onset. Patient not a candidate for TNK nor is he candidate for LVO retrieval. Patient loaded with aspirin and clopidogrel in the emergency room. Will continue with that on the floor. Patient already on 40 mg of atorvastatin. Continue DAPT for 3 months, then ASA only. MRI brain Shows a small acute infarct of left thalamus. Punctate infarcts of the right cerebellum. Echo shows EF of 65%. (2) Carotid stenosis: PLAN: patient was noted to have carotid stenosis more prominent on the left. Recommend the patient follow-up with vascular surgery as outpatient. Patient has vascular surgery at [facility] for his aortic aneurysms. Check carotid duplex Appears to be unrelated with his current stroke symptoms. (3) Tobacco abuse: PLAN: Exam the patient has daughter that smoking is his biggest preventable riskfactor. Strongly advised cessation to help prevent further strokes in the future. PLAN: Plan Chronic conditions * Aortic aneurysms, thoracic and abdominal. Currently stable. Follow-up with vascular surgery as outpatient. * Peripheral arterial disease, patient noted bilateral subclavian artery partial thrombosis. Follow-up with vascular surgery as outpatient. * Hypertension: Hold antihypertensives for the next 24 hours to maintain cerebral perfusion pressure. VTE prophylaxis with enoxaparin CODE STATUS: Addressed with the patient. Patient wishes to be full code. Discharge to rehab. 08/18/24 1428 <Electronically signed by Enzo Mann DO> Cosigner Signature (if applicable): CC: ~ Signed [facility] Work Phone: [phone] Consult note Author Pavithra Rodriguez [facility] Note Date/Time August 17, 2024 4:2 9pm [facility] Medical Records Department [address] [place] [address] Consultation - Neurology 08/17/24 1238 MR#: [id number] Acct: [id number] Name: LEO ANGELO Rep #:[id number] : 1945 79 From: Pavithra Rodriguez MD PCP: Dr. Sera Castillo MD Status:ADM I N Location: ICU CVICU20 3-1 Assessment and Plan: Stroke Assessment/Plan LEO ANGELO is a 79 M with a history of hypertension hyperlipidemia COPD nicotine dependence and CAD presents with right arm, leg weakness, numbness. 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 MRI: Right cerebellar and left thalamic stroke Posterior circulation stroke likely from Large vessel disease vs other causes Plan Continue ASA, plavix for now Please obtain ECHO, FLP, HbA1C Continue serial neurological outcome HTN: Permissive hypertensive acutely HLD: Continue statin ICA stenosis; F/up with vascular surgery routinely as out patient once out of acute phase PT, OT evaluation Smoking cessation Stroke education Thanks for consult. Spent 80 min in evaluation and management of this patient. HPI Consult Data Date of Consult: 08/17/24 HPI Narrative HPI Narrative: LEO ANGELO, is a 79 M with past medical history of hypertension hyperlipidemia COPD nicotine dependence and CAD. He went to bed around 830/9 PM last night andthen awoke this morning around 2-2:30 am with right arm and leg weakness as wellas inability to stand or sit up as he was falling towards the right. Later EMS was called. His blood sugar is normal. Upon arrival to the ER he is awake and alert with right sided deficit but there is improvement in strength of the arms and legs compared to a EMS reported. He feels numb of the right side along with weakness. he denies having slurred speech or facial droop. CTA: Showed BA non occlusive thrombus, RVA occlusion, R subclavian partial thrombus, 70% left ICA and 50% LANIE stenosis. 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) Alcoholism Major depression COPD (chronic obstructive pulmonary disease) Essential (primary) hypertension AAA (abdominal aortic aneurysm) without rupture Home Medications ?Medication ?Instructions ?Recorded ?Last Taken ?Type ramipril 10 mg capsule 10 mg PO DAILY 04/12/21 Unkn own History atorvastatin 40 mg tablet 40 mg PO DAILY #30 tabs 04/10 02/27 Unknown Rx aspirin 81 mg chewable tablet 81 mg PO DAILY 03/08/22 08/16/24 History omeprazole 40 mg capsule,delayed 40 mg PO DAILY #30 ca ps 03/08/22 Unknown Rx release nifedipine 30 mg tablet,extended 30 mg PO DAILY PCP gamez d him on 60 03/10/23 Unknown Rx release 24 hr mg but bp too low, please ch valeri #90 tabs Allergy/AdvReac Type Severity Reaction Status Date / Time latex Allergy Rash Verified 08/17/24 05:56 Family History Mother CVA (cerebral vascular accident) Surgical History History of total right hip replacement History of left heart catheterization (09/11/18) Social History Smoking Status: Current every day smoker tobacco type: cigarettes alcohol intake: former substance use type: does not use caffeine: Yes Type: coffee Vital Signs Vital Signs Vital Signs: 08/17/24 05:55 08/17/24 05:56 08/17/24 06:03 Temperature 98.0 F Temperature Source Oral Pulse Rate 60 61 Respiratory Rate 16 16 Blood Pressure 135/63 H 105/65 128/63 H Blood Pressure Mean 87 78 84 Blood Pressure Source Blood Pressure Position Blood Pressure Location Pulse Ox 97 97 Oxygen Delivery Method Room Air Room Air Room Air 08/17/24 06:09 08/17/24 06:25 08/17/24 06:30 Temperature Temperature Source Pulse Rate 60 60 Respiratory Rate 18 18 Blood Pressure 119/64 119/64 Blood Pressure Mean 82 82 Blood Pressure Source Blood Pressure Position Blood Pressure Location Pulse Ox 94 98 98 Oxygen Delivery Method Room Air Room Air Room Air 08/17/24 06:54 08/17/24 07:00 08/17/24 07:00 Temperature Temperature Source Pulse Rate 66 62 63 Respiratory Rate 18 18 18 Blood Pressure 122/63 H 122/63 H 122/63 H Blood Pressure Mean 82 82 82 Blood Pressure Source Blood Pressure Position Blood Pressure Location Pulse Ox 96 97 97 Oxygen Delivery Method Room Air Room Air Room Air 08/17/24 07:30 08/17/24 08:00 08/17/24 08:00 Temperature Temperature Source Pulse Rate 57 L 63 63 Respiratory Rate 18 16 19 H Blood Pressure 112/84 H 125/63 H 125/63 H Blood Pressure Mean 93 83 83 Blood Pressure Source Blood Pressure Position Blood Pressure Location Pulse Ox 97 98 98 Oxygen Delivery Method Room Air Room Air Room Air 08/17/24 08:12 08/17/24 09:15 Temperature Temperature Source Pulse Rate 79 Respiratory Rate 14 Blood Pressure 105/55 L Blood Pressure Mean 71 Blood Pressure Source Monitor Blood Pressure Position Semi-Fowlers Blood Pressure Location Left Arm Pulse Ox 98 99 Oxygen Delivery Method Room Air Room Air Weight Weight: 60.5 kg Body Mass Index (BMI) 26.0 EEG Results Procedure Details EEG Procedure Details: LEO ANGELO is a 79 year old M with a past medical history of , who presents for evaluation of Electroencephalogram on DATE at TIME NIHSS NIHSS Nursing Documentation NIHSS Nursing Documentation: NIHSS: Ischemic Stroke/TIA Start: 08/17/24 08:34 Text: For PCU Patients: NIH and Neuro Check every 4 Status: Active hours, PRN and with change in RN caregiver. Freq: [id number] Protocol: Activity Type Activity Date Activity User E-sign Co-sign Detail Recorded Client Recorded Date Recorded By Document 08/17/24 11:03 [id number] 08/17/24 11:13 08/17/24 11:03 NIH Stroke Scale [NIHSS] A score of 0 is normal or asymptomatic . Total possible score is 42. Inpatient: RN or Physician to activate a stroke alert for onset of new stroke symptoms or with NIHSS increase >/= 3 points. Following change in neurological status, NIHSS will be performed per physician order or more frequently PRN. -1a. Level of Consciousness Alert; keenly responsive -1b. LOC Questions Answers BOTH questions correctly. -1c. LOC Commands Performs both tasks correctly . -2. Best Gaze Normal -3. Visual Partial hemianopia -4. Facial Palsy Normal symmetrical movements -5a. Left Arm No drift; arm holds 90 (or 45 ) degrees for full 10 seconds -5b. Right Arm Drift; arm drifts downward but doesn?t hit the bed -6a. Left Leg No drift; leg holds 30-degree position for full 5 seconds -6b. Right Leg Drift; leg falls by the end of 5- seconds, but does not hit bed -7. Limb Ataxia Present in 1 limb -8. Sensory Mild-to- moderate sensory loss; -9. Best Language Mild-to- moderate aphasia; -10. Dysarthria Normal -11. Extinction and Inattention Visual, tactile , auditory, spatial, or personal inattention -Total 7 Query Text:A score of 0 is normal or asymptomatic. Total possible score is 42 . ED: Notify Physician for NIHSS increase by > / = 3 points. Inpatient: RN or Physician to activate a stroke alert for NIHSS increase of > / = 3 points. NIHSS 1a. Level of Consciousness: Alert; keenly responsive 1b. LOC Questions: Answers BOTH questions correctly. 1c. LOC Commands: Performs both tasks correctly. 2. Best Gaze: Normal 3. Visual: Complete hemianopia 4. Facial Palsy: Minor paralysis (flattened nasolabial fold, asymmetry on smiling) 5a. Left Arm: No drift; arm holds 90 (or 45) degrees for full 10 seconds 5b. Right Arm: No drift; arm holds 90 (or 45) degrees for full 10 seconds 6a. Left Leg: No drift; leg holds 30-degree position for full 5 seconds 6b. Right Leg: No drift; leg holds 30-degree position for full 5 seconds 7. Limb Ataxia: Present in 1 limb 8. Sensory: Olxk-kf-zxsaytxa sensory loss; 9. Best Language: Gtde-df-iwbpiork aphasia; 10. Dysarthria: Normal 11. Extinction and Inattention: Visual, tactile, auditory, spatial, or personal inattention Total: 7 Physical Exam Const alert, oriented x3 and no apparent distress General Appearance: cooperative, comfortable and well kempt HEENT normocephalic Neuro Neuro Narrative: awake, alert, oriented x3 Mild decreased fluency ? due to vision vs true aphasia. Per family speech is at baseline ? RHH vs quadrantanopsia Right facial droop Motor power 5/5 Sensation: Decreased on the right side RLE ataxia Lab / Micro Data 08/17/24 06:12 08/17/24 06:12 Labs: Laboratory Results - last 24 hr 08/17/24 06:12: WBC 5.6, RBC 3.67 L, Hgb 10.9 L, Hct 33.0 L, MCV 89.9, MCH 29.7, MCHC 33.0, RDW Std Deviation 44.2 H, RDW Coeff of Michael 13.5, Plt Count 204, MPV 9.5, Immature Gran % (Auto) 0.200, Neut % (Auto) 68.6, Lymph % (Auto) 18.4 L, Fergus % (Auto) 9.4, Eos % (Auto) 2.0, Baso % (Auto) 1.4 H, Absolute Neuts (auto) 3.8, Absolute Lymphs (auto) 1.02, Nucleated RBC % 0, PT 13.6, INR 1.0, APTT 28.4, Sodium 134, Potassium 4.1, Chloride 101, Carbon Dioxide 23.5, Anion Gap 10, BUN 19, Creatinine 0.85, Estim Creat Clear Calc 53.53, Est GFR (MDRD) Non-Af 88, BUN/Creatinine Ratio 22.5 H, Glucose 127 H, Calcium 8.9, Ethyl Alcohol < 10.1 Imaging Radiology Impression Brain CT 08/17/24 05:55 IMPRESSION: No acute intracranial hemorrhage, mass effect or midline shift. Extensive chronic microvascular ischemic disease. If there is concern for acute infarct, MRI may be obtained. One or more dose reduction techniques were used (e.g., Automated exposure control, adjustment of the mA and/or kV according to patient size, use of iterative reconstruction technique). Reading Location: [facility] Chest X-Ray 08/17/24 05:55 IMPRESSION: As above. Reading Location: [facility] Head/Neck CTA 08/17/24 05:56 IMPRESSION: Limited examination. 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 Partial thrombosis of visualized subclavian artery. Greater than 70 percent stenosis within the left proximal ICA. Approximately 50 percent stenosis within the right proximal ICA. Partial thrombosis of the right subclavian artery, partially visualized. Ray Dennis MD was notified of the critical findings in the ED at 6:33 a.m. Eastern standard time. One or more dose reduction techniques were used (e.g., Automated exposure control, adjustment of the mA and/or kV according to patient size, use of iterative reconstruction technique). Red Alert: Acute basilar artery thrombosis, right vertebral artery thrombosis near the acute.. The critical information above was relayed directly by me by telephone to Ray Dennis on 08/17/2024 at 6:33 am with readback verification. Reading Location: [id number] Brain MRI 08/17/24 08:34 IMPRESSION: 1. 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 Punctate acute infarcts in the right cerebellum. 2. Abnormal posterior circulation flow voids, better evaluated on previous CTA. 3. Mild right mastoid effusion. 4. Additional description as above. Findings in impression #1 were discussed by telephone with Dr. Mann at 9:33 am [facility] on 08/17/2024 Reading Location: [facility] Echocardiogram 08/17/24 08:34 Interpretation Summary The estimated ejection fraction is 65 %. No evidence for diastolic dysfunction. Ordering Physician: Enzo Mann Referring Physician: SERA CASTILLO Performed By: Asha Rae, CYN Active Medications Active Medications Active Medications: Current Medications Generic Name Dose Route Start Last Admin Trade Name Freq PRN Reason Stop Dose Admin Acetaminophen 650 mg 08/17/24 09:00 Acetaminophen 325 Mg Tablet PO Q6H PRN PRN Pain 1-10 Or Fever >100.7 Aspirin 81 mg 08/18/24 08:00 Aspirin 81 Mg Tab.Chew PO BREAKFAST [facility] Atorvastatin Calcium 40 mg 08/17/24 10:00 08/17/24 09:07 Atorvastatin Calcium 40 Mg Tablet PO 40 mg DAILY [facility] Administration Clopidogrel Bisulfate 75 mg 08/18/24 10:00 Clopidogrel Bisulfate 75 Mg Tablet PO DAILY [facility] Enoxaparin Sodium 40 mg 08/17/24 10:00 08/17/24 09:07 Enoxaparin 40 Mg/0.4 Ml Syringe SC 40 mg DAILY [facility] Administration Hydralazine HCl 5 mg 08/17/24 09:00 Hydralazine 20 Mg/Ml Vial IV 08/18/24 09:01 Q30M PRN maintain BP parameters with HR <60 Sodium Chloride 100 mls @ 15 mls/hr 08/17/24 10:00 IV .Q6H40M PRN Saline Flush Sodium Chloride 100 mls @ 15 mls/hr 08/17/24 10:00 IV .Q6H40M PRN Additional IVPB Infusion Labetalol HCl 10 - 20 mg 08/17/24 09:00 Labetalol 20mg/4ml Syringe IV 08/18/24 09:01 Q10M PRN PRN maintain BP parameters with HR >/=60 Nifedipine 30 mg 08/18/24 10:00 Nifedipine 30 Mg Tablet PO DAILY [facility] Protocol Pantoprazole Sodium 40 mg 08/17/24 10:00 08/17/24 09:07 Pantoprazole Sodium 40 Mg Tablet PO 40 mg DAILY [facility] Administration Ramipril 10 mg 08/18/24 10:00 Ramipril 10 Mg Capsule PO DAILY [facility] Protocol Sodium Chloride 10 - 40 ml 08/17/24 10:00 0.9% Saline Lock 10 Ml Syringe IV UD PRN SALINE FLUSH 08/17/24 1322 <Electronically signed by Pavithra Rodriguez MD> Cosigner Signature (if applicable): CC: Dr. Sera Castillo MD~ Signed ADDENDUM by Pavithra Rodriguez MD on 08/17/24 at 1626 EEG Results Procedure Details EEG Procedure Details: LEO ANGELO is a 79 year old M with a past medical history of , who presents for evaluation of Electroencephalogram on DATE at TIME Assessment and Plan: Stroke Assessment/Plan Continuous neurochecks Q2 for serial neurological monitoring Monitor for any decline. Please call acute stroke team with any decline. Thanks for consult 08/17/24 8736<Electronically signed by Pavithra Rodriguez MD> Cosigner Signature (if applicable): cc: Dr. Sera Castillo MD ~* Signed [facility] Work Phone: [phone] 341-601103-11-2025 Consult note [facility] Medical Records Department [address] [place] [address] Consultation - Neurology 08/17/24 1238 MR#: [id number] Acct: [id number] Name: LEO ANGELO Rep #:[id number] : 1945 79 From: Pavithra Rodriguez MD PCP: Dr. Sera Castillo MD Status:ADM I N Location: ICU CVICU20 3-1 Assessment and Plan: Stroke Assessment/Plan LEO ANGELO is a 79 M with a history of hypertension hyperlipidemia COPD nicotine dependence and CAD presents with right arm, leg weakness, numbness. 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 MRI: Right cerebellar and left thalamic stroke Posterior circulation stroke likely from Large vessel disease vs other causes Plan Continue ASA, plavix for now Please obtain ECHO, FLP, HbA1C Continue serial neurological outcome HTN: Permissive hypertensive acutely HLD: Continue statin ICA stenosis; F/up with vascular surgery routinely as out patient once out of acute phase PT, OT evaluation Smoking cessation Stroke education Thanks for consult. Spent 80 min in evaluation and management of this patient. HPI Consult Data Date of Consult: 08/17/24 HPI Narrative HPI Narrative: LEO ANGELO, is a 79 M with past medical history of hypertension hyperlipidemia COPD nicotine dependence and CAD. He went to bed around 830/9 PM last night andthen awoke this morning around 2-2:30 amwith right arm and leg weakness as wellas inability to stand or sit up as he was falling towards the right. Later EMS was called. His blood sugar is normal. Upon arrival to the ER he is awake and alert with right sided deficit but there is improvement in strength of the arms and legs compared to a EMS reported. He feels numb of the right side along with weakness. he denies having slurred speech or facial droop. CTA: Showed BA non occlusive thrombus, RVA occlusion, R subclavian partial thrombus,70% left ICA and 50% LANIE stenosis. 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) Alcoholism Major depression COPD (chronic obstructive pulmonary disease) Essential (primary) hypertension AAA (abdominal aortic aneurysm) without rupture Home Medications ?Medication ?Instructions ?Recorded ?Last Taken ?Type ramipril 10 mg capsule 10 mg PO DAILY 04/12/21 Unkn own History atorvastatin 40 mg tablet 40 mg PO DAILY #30 tabs 04/10 02/27 Unknown Rx aspirin 81 mg chewable tablet 81 mg PO DAILY 03/08/22 08/16/24 History omeprazole 40 mg capsule,delayed 40 mg PO DAILY #30 ca ps 03/08/22 Unknown Rx release nifedipine 30 mg tablet,extended 30 mg PO DAILY PCP gamez d him on 60 03/10/23 Unknown Rx release 24 hr mg but bp too low, please valeri #90 tabs Allergy/AdvReac Type Severity Reaction Status Date / Time latex Allergy Rash Verified 08/17/24 05:56 Family History Mother CVA (cerebral vascular accident) Surgical History History of total right hip replacement History of left heart catheterization (09/11/18) Social History Smoking Status: Current every day smoker tobacco type: cigarettes alcohol intake: former substance use type: does not use caffeine: Yes Type: coffee Vital Signs Vital Signs Vital Signs: 08/17/24 05:55 08/17/24 05:56 08/17/24 06:03 Temperature 98.0 F Temperature Source Oral Pulse Rate 60 61 Respiratory Rate 16 16 Blood Pressure 135/63 H 105/65 128/63 H Blood Pressure Mean 87 78 84 Blood Pressure Source Blood Pressure Position Blood Pressure Location Pulse Ox 97 97 Oxygen Delivery Method Room Air Room Air Room Air 08/17/24 06:09 08/17/24 06:25 08/17/24 06:30 Temperature Temperature Source Pulse Rate 60 60 Respiratory Rate 18 18 Blood Pressure 119/64 119/64 Blood Pressure Mean 82 82 Blood Pressure Source Blood Pressure Position Blood Pressure Location Pulse Ox 94 98 98 Oxygen Delivery Method Room Air Room Air Room Air 08/17/24 06:54 08/17/24 07:00 08/17/24 07:00 Temperature Temperature Source Pulse Rate 66 62 63 Respiratory Rate 18 18 18 Blood Pressure 122/63 H 122/63 H 122/63 H Blood Pressure Mean 82 82 82 Blood Pressure Source Blood Pressure Position Blood Pressure Location Pulse Ox 96 97 97 Oxygen Delivery Method Room Air Room Air Room Air 08/17/24 07:30 08/17/24 08:00 08/17/24 08:00 Temperature Temperature Source Pulse Rate 57 L 63 63 Respiratory Rate 18 16 19 H Blood Pressure 112/84 H 125/63 H 125/63 H Blood Pressure Mean 93 83 83 Blood Pressure Source Blood Pressure Position Blood Pressure Location Pulse Ox 97 98 98 Oxygen Delivery Method Room Air Room Air Room Air 08/17/24 08:12 08/17/24 09:15 Temperature Temperature Source Pulse Rate 79 Respiratory Rate 14 Blood Pressure 105/55 L Blood Pressure Mean 71 Blood Pressure Source Monitor Blood Pressure Position Semi-Fowlers Blood Pressure Location Left Arm Pulse Ox 98 99 Oxygen Delivery Method Room Air Room Air Weight Weight: 60.5 kg Body Mass Index (BMI) 26.0 EEG Results Procedure Details EEG Procedure Details: LEO ANGELO is a 79 year old M with a past medical history of , who presents for evaluation ofElectroencephalogram on DATE at TIME NIHSS NIHSS Nursing Documentation NIHSS Nursing Documentation: NIHSS: Ischemic Stroke/TIA Start: 08/17/24 08:34 Text: For PCU Patients: NIH and Neuro Check every 4 Status: Active hours, PRN and with change in RN caregiver. Freq: [id number] Protocol: Activity Type Activity Date Activity User E-sign Co-sign Detail Recorded Client Recorded Date Recorded By Document 08/17/24 11:03 RV [id number] 08/17/24 11:13 RV 08/17/24 11:03 NIH Stroke Scale [NIHSS] A score of 0 is normal or asymptomatic . Total possible score is 42. Inpatient: RN or Physician to activate a stroke alert for onset of new stroke symptoms or with NIHSS increase >/= 3 points. Following change in neurological status, NIHSS will be performed per physician order or more frequently PRN. -1a. Level of Consciousness Alert; keenly responsive -1b. LOC Questions Answers BOTH questions correctly. -1c. LOC Commands Performs both tasks correctly . -2. Best Gaze Normal -3. Visual Partial hemianopia -4. Facial Palsy Normal symmetrical movements -5a. Left Arm No drift; arm holds 90 (or 45 ) degrees for full 10 seconds -5b. Right Arm Drift; arm drifts downward but doesn?t hit the bed -6a. Left Leg No drift; leg holds 30-degree position for full 5 seconds -6b. Right Leg Drift; leg falls by the end of 5- seconds, but does not hit bed -7. Limb Ataxia Present in 1 limb -8. Sensory Mild-to- moderate sensory loss; -9. Best Language Mild-to- moderate aphasia; -10. Dysarthria Normal -11. Extinction and Inattention Visual, tactile , auditory, spatial, or personal inattention -Total 7 Query Text:A score of 0 is normal or asymptomatic. Total possible score is 42 . ED: Notify Physician for NIHSS increase by > / = 3 points. Inpatient: RN or Physician to activate a stroke alert for NIHSS increase of > / = 3 points. NIHSS 1a. Level of Consciousness: Alert; keenly responsive 1b. LOC Questions: Answers BOTH questions correctly. 1c. LOC Commands: Performs both tasks correctly. 2. Best Gaze: Normal 3. Visual: Complete hemianopia 4. Facial Palsy: Minor paralysis (flattened nasolabial fold, asymmetry on smiling) 5a. Left Arm: No drift; arm holds 90 (or 45) degrees for full 10 seconds 5b. Right Arm: No drift; arm holds 90 (or 45) degrees for full 10 seconds 6a. Left Leg: No drift; leg holds 30-degree position for full 5 seconds 6b. Right Leg: No drift; leg holds 30-degree position for full 5 seconds 7. Limb Ataxia: Present in 1 limb 8. Sensory: Oynn-zc-aairddfc sensory loss; 9. Best Language: Vnui-bx-rkjacikj aphasia; 10. Dysarthria: Normal 11. Extinction and Inattention: Visual, tactile, auditory, spatial, or personal inattention Total: 7 Physical Exam Const alert, oriented x3 and no apparent distress General Appearance: cooperative, comfortable and well kempt HEENT normocephalic Neuro Neuro Narrative: awake, alert, oriented x3 Mild decreased fluency ? due to vision vs true aphasia. Per family speech is at baseline ? RHH vs quadrantanopsia Right facial droop Motor power 5/5 Sensation: Decreased on the right side RLE ataxia Lab / Micro Data 08/17/24 06:12 08/17/24 06:12 Labs: Laboratory Results - last 24 hr 08/17/24 06:12: WBC 5.6, RBC 3.67 L, Hgb 10.9 L, Hct 33.0 L, MCV 89.9, MCH 29.7, MCHC 33.0, RDW StdDeviation 44.2 H, RDW Coeff of Michael 13.5, Plt Count 204, MPV 9.5, Immature Gran % (Auto) 0.200, Neut% (Auto) 68.6, Lymph % (Auto) 18.4 L, Fergus % (Auto) 9.4, Eos % (Auto) 2.0, Baso % (Auto) 1.4 H, Absolute Neuts (auto) 3.8, Absolute Lymphs (auto) 1.02, Nucleated RBC % 0, PT 13.6, INR 1.0, APTT 28.4,Sodium 134, Potassium 4.1, Chloride 101, Carbon Dioxide 23.5, Anion Gap 10, BUN 19, Creatinine 0.85, Estim Creat Clear Calc 53.53, Est GFR (MDRD) Non-Af 88, BUN/Creatinine Ratio 22.5 H, Glucose 127 H, Calcium 8.9, Ethyl Alcohol < 10.1 Imaging Radiology Impression Brain CT 08/17/24 05:55 IMPRESSION: No acute intracranial hemorrhage, mass effect or midline shift. Extensive chronic microvascular ischemic disease. If there is concern for acute infarct, MRI may be obtained. One or more dose reduction techniques were used (e.g., Automated exposure control, adjustment of the mA and/or kV according to patient size, use of iterative reconstruction technique). Reading Location: [facility] Chest X-Ray 08/17/24 05:55 IMPRESSION: As above. Reading Location: [facility] Head/Neck CTA 08/17/24 05:56 IMPRESSION: Limited examination. 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 Partial thrombosis of visualized subclavian artery. Greater than 70 percent stenosis within the left proximal ICA. Approximately 50 percent stenosis within the right proximal ICA. Partial thrombosis of the right subclavian artery, partially visualized. Ray Dennis MD was notified of the critical findings in the ED at 6:33 a.m. Eastern standard time. One or more dose reduction techniques were used (e.g., Automated exposure control, adjustment of the mA and/or kV according to patient size, use of iterative reconstruction technique). Red Alert: Acute basilar artery thrombosis, right vertebral artery thrombosis near the acute.. The critical information above was relayed directly by me by telephone to Ray Dennis on 08/17/2024 at 6:33 am with readback verification. Reading Location: [facility] Brain MRI 08/17/24 08:34 IMPRESSION: 1. 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 Punctate acute infarcts in the right cerebellum. 2. Abnormal posterior circulation flow voids, better evaluated on previous CTA. 3. Mild right mastoid effusion. 4. Additional description as above. Findings in impression #1 were discussed by telephone with Dr. Mann at 9:33 am [facility] on 08/17/2024 Reading Location: [id number] Echocardiogram 08/17/24 08:34 Interpretation Summary The estimated ejection fraction is 65 %. No evidence for diastolic dysfunction. Ordering Physician: Enzo Mann Referring Physician: SERA CASTILLO Performed By: Asha Rae RDCS Active Medications Active Medications Active Medications: Current Medications Generic Name Dose Route Start Last Admin Trade Name Freq PRN Reason Stop Dose Admin Acetaminophen 650 mg 08/17/24 09:00 Acetaminophen 325 Mg Tablet PO Q6H PRN PRN Pain 1-10 Or Fever >100.7 Aspirin 81 mg 08/18/24 08:00 Aspirin 81 Mg Tab.Chew PO BREAKFAST [facility] Atorvastatin Calcium 40 mg 08/17/24 10:00 08/17/24 09:07 Atorvastatin Calcium 40 Mg Tablet PO 40 mg DAILY [facility] Administration Clopidogrel Bisulfate 75 mg 08/18/24 10:00 Clopidogrel Bisulfate 75 Mg Tablet PO DAILY [facility] Enoxaparin Sodium 40 mg 08/17/24 10:00 08/17/24 09:07 Enoxaparin 40 Mg/0.4 Ml Syringe SC 40 mg DAILY [facility] Administration Hydralazine HCl 5 mg 08/17/24 09:00 Hydralazine 20 Mg/Ml Vial IV 08/18/24 09:01 Q30M PRN maintain BP parameters with HR <60 Sodium Chloride 100 mls @ 15 mls/hr 08/17/24 10:00 IV .Q6H40M PRN Saline Flush Sodium Chloride 100 mls @ 15 mls/hr 08/17/24 10:00 IV .Q6H40M PRN Additional IVPB Infusion Labetalol HCl 10 - 20 mg 08/17/24 09:00 Labetalol 20mg/4ml Syringe IV 08/18/24 09:01 Q10M PRN PRN maintain BP parameters with HR >/=60 Nifedipine 30 mg 08/18/24 10:00 Nifedipine 30 Mg Tablet PO DAILY [facility] Protocol Pantoprazole Sodium 40 mg 08/17/24 10:00 08/17/24 09:07 Pantoprazole Sodium 40 Mg Tablet PO 40 mg DAILY [facility] Administration Ramipril 10 mg 08/18/24 10:00 Ramipril 10 Mg Capsule PO DAILY [facility] Protocol Sodium Chloride 10 - 40 ml 08/17/24 10:00 0.9% Saline Lock 10 Ml Syringe IV UD PRN SALINE FLUSH 08/17/24 1322 Cosigner Signature (if applicable): CC: Dr. Sera Castillo MD~ Signed ADDENDUM by Pavithra Rodriguez MD on 08/17/24 at 1629 EEG Results Procedure Details EEG Procedure Details: LEO ANGELO is a 79 year old M with a past medical history of , who presents for evaluation ofElectroencephalogram on DATE at TIME Assessment and Plan: Stroke Assessment/Plan Continuous neurochecks Q2 for serial neurological monitoring Monitor for any decline. Please call acute stroke team with any decline. Thanks for consult 08/17/24 1629 Cosigner Signature (if applicable): cc: Dr. Sera Castillo MD ~* Signed [facility]03-11-2025 History and physical note Author Enzo Mann [facility] Note Date/Time August 17, 2024 2:2 8pm [facility] Medical Records Department [address] [place] [id number] H&P Exam - Hospitalist 08/17/24 0740 MR#: [id number] Acct: [id number] Name: LEO ANGELO Rep #:[id number] : 1945 79 From: Enzo Mann DO PCP: Dr. Sera Castillo MD Status:ADM I N Location: ICU CVICU20 3-1 HPI - General General Date of Service: 08/17/24 Chief Complaint: Right-sided weakness HPI Narrative LEO ANGELO, is a 79 M who presents with right-sided weakness. Patient awoke this morning with right-sided weakness and instability. Last known well was around 2029 on the . Patient had dense right-sided hemiparesis when he presented. Patient underwent a workup in the emergency room. CTA of the head and neck showed an acute basilar artery thrombosis, right supra Teba heart cheerio occlusion which may be acute to subacute. Partial thrombosis of the visualized subclavian artery, greater than 70% stenosis of the left proximal ICA, approximately 50% stenosis of the right proximal ICA. Partial thrombosis of the right subclavian artery. [facility] teleneurology was consulted and patient wasdeemed not a candidate for TNK given unknown time of onset greater than 4 hours and did not feel that transfer was necessary for the CTA findings. Patient has never had a stroke before. 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) Alcoholism Major depression COPD (chronic obstructive pulmonary disease) Essential (primary) hypertension AAA (abdominal aortic aneurysm) without rupture Home Medications ?Medication ?Instructions ?Recorded ?Last Taken ?Type ramipril 10 mg capsule 10 mg PO DAILY 04/12/21 Unkn own History atorvastatin 40 mg tablet 40 mg PO DAILY #30 tabs 04/10 02/27 Unknown Rx aspirin 81 mg chewable tablet 81 mg PO DAILY 03/08/22 Unknown History omeprazole 40 mg capsule,delayed 40 mg PO DAILY #30 ca ps 03/08/22 Unknown Rx release nifedipine 30 mg tablet,extended 30 mg PO DAILY PCP gamez d him on 60 03/10/23 Unknown Rx release 24 hr mg but bp too low, please ch valeri #90 tabs mecobalamin (vitamin B12) 1,000 1,000 mcg PO DAILY 05/31 Unknown History mcg chewable tablet Allergy/AdvReac Type Severity Reaction Status Date / Time latex Allergy Rash Verified 08/17/24 05:56 Family History Mother CVA (cerebral vascular accident) Surgical History History of total right hip replacement History of left heart catheterization (09/11/18) Social History Smoking Status: Current every day smoker tobacco type: cigarettes alcohol intake: former substance use type: does not use caffeine: Yes Type: coffee ROS ROS Narrative No visual changes. No headache. All review of systems were negative except as mentioned above in the history of present illness and the other review of systems. Vital Signs Vital Signs Vital Signs: 08/17/24 05:55 08/17/24 05:56 08/17/24 06:03 Temperature 36.7 C Temperature Source Oral Pulse Rate 60 61 Respiratory Rate 16 16 Blood Pressure 135/63 H 105/65 128/63 H Blood Pressure Mean 87 78 84 Pulse Ox 97 97 Oxygen Delivery Method Room Air Room Air Room Air 08/17/24 06:09 08/17/24 06:25 08/17/24 06:30 Temperature Temperature Source Pulse Rate 60 60 Respiratory Rate 18 18 Blood Pressure 119/64 119/64 Blood Pressure Mean 82 82 Pulse Ox 94 98 98 Oxygen Delivery Method Room Air Room Air Room Air 08/17/24 06:54 08/17/24 07:00 08/17/24 07:00 Temperature Temperature Source Pulse Rate 66 62 63 Respiratory Rate 18 18 18 Blood Pressure 122/63 H 122/63 H 122/63 H Blood Pressure Mean 82 82 82 Pulse Ox 96 97 97 Oxygen Delivery Method Room Air Room Air Room Air 08/17/24 07:30 Temperature Temperature Source Pulse Rate 57 L Respiratory Rate 18 Blood Pressure 112/84 H Blood Pressure Mean 93 Pulse Ox 97 Oxygen Delivery Method Room Air Weight Weight: 61.5 kg Body Mass Index (BMI) 26.4 Physical Exam Narrative - Physical Exam General: Alert, Oriented x3, Cooperative HEENT: Atraumatic, PERRLA, EOMI, Normocephalic Oral: Moist Mucosa, No Gingival or Mucosal Lesions/ Ulcerations Neck: No thyromegaly, Negative Carotid Bruits Lungs: Clear to auscultation, Normal air movement Cardiovascular: Regular rate, Normal S1, Normal S2, No murmurs Abdomen: Bowel Sounds Present, Soft, Non Tender, Non-Distended, No Hepato-splenomegaly Extremities: No clubbing, No cyanosis, No edema, Capillary Refill Less than 3 Seconds Skin: No rashes, No breakdown Musculoskeletal: No Tenderness to Palpation of Joints or Extremities Neurological: Cranial nerves II through XII grossly intact. Muscle strength 4:55 in the AM left upper and left lower extremity. 4-5 in the right upper and right lower extremity. Ataxia the right [id number] and right [id number]. Sensation grossly intact throughout. Psych/Mental Status: Normal Affect, Appropriate Results Lab / Micro Data Attestation: I reviewed the patient's lab results. 08/17/24 06:12 08/17/24 06:12 Labs: Laboratory Results - last 24 hr 08/17/24 06:12: WBC 5.6, RBC 3.67 L, Hgb 10.9 L, Hct 33.0 L, MCV 89.9, MCH 29.7,MCHC 33.0, RDW Std Deviation 44.2 H, RDW Coeff of Michael 13.5, Plt Count 204, MPV 9.5, Immature Gran % (Auto) 0.200, Neut % (Auto) 68.6, Lymph % (Auto) 18.4 L, Fergus % (Auto) 9.4, Eos % (Auto) 2.0, Baso % (Auto) 1.4 H, Absolute Neuts (auto) 3.8, Absolute Lymphs (auto) 1.02, Nucleated RBC % 0, PT 13.6, INR 1.0, APTT 28.4, Sodium 134, Potassium 4.1, Chloride 101, Carbon Dioxide 23.5, Anion Gap 10, BUN 19, Creatinine 0.85, Estim Creat Clear Calc 53.53, Est GFR (MDRD) Non-Af88, BUN/Creatinine Ratio 22.5 H, Glucose 127 H, Calcium 8.9, Ethyl Alcohol < 10.1 EKG Initial EKG: Attestation: I personally reviewed and interpreted this EKG as follows: Prior EKG tracings: available for review EKG Rhythm Intrepretation: Sinus Rhythm Imaging Radiology Impression Brain CT 08/17/24 05:55 IMPRESSION: No acute intracranial hemorrhage, mass effect or midline shift. Extensive chronic microvascular ischemic disease. If there is concern for acute infarct, MRI may be obtained. One or more dose reduction techniques were used (e.g., Automated exposure control, adjustment of the mA and/or kV according to patient size, use of iterative reconstruction technique). Reading Location: [facility] Chest X-Ray 08/17/24 05:55 IMPRESSION: As above. Reading Location: [facility] Head/Neck CTA 08/17/24 05:56 IMPRESSION: Limited examination. 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 Partial thrombosis of visualized subclavian artery. Greater than 70 percent stenosis within the left proximal ICA. Approximately 50 percent stenosis within the right proximal ICA. Partial thrombosis of the right subclavian artery, partially visualized. Ray Dennis MD was notified of the critical findings in the ED at 6:33 a.m. Eastern standard time. One or more dose reduction techniques were used (e.g., Automated exposure control, adjustment of the mA and/or kV according to patient size, use of iterative reconstruction technique). Red Alert: Acute basilar artery thrombosis, right vertebral artery thrombosis near the acute.. The critical information above was relayed directly by me by telephone to Ray Dennis on 08/17/2024 at 6:33 am with readback verification. Reading Location: [facility] Assessment & Plan Assessment/Plan (1) Acute cerebrovascular accident (CVA): PLAN: Unknown time of onset. Patient not a candidate for TNK nor is he candidate for LVO retrieval. Patient loaded with aspirin and clopidogrel in the emergency room. Will continue with that on the floor. Patient already on 40 mg of atorvastatin. Check MRI of the brain, carotid ultrasound, 2D echocardiogram, therapy evaluations (PT, OT and speech therapy) (2) Carotid stenosis: PLAN: patient was noted to have carotid stenosis more prominent on the left. Recommend the patient follow-up with vascular surgery as outpatient. Patient has vascular surgery at [facility] for his aortic aneurysms. Check carotid duplex (3) Tobacco abuse: PLAN: Exam the patient has daughter that smoking is his biggest preventable riskfactor. Strongly advised cessation to help prevent further strokes in the future. PLAN: Plan Chronic conditions * Aortic aneurysms, thoracic and abdominal. Currently stable. Follow-up with vascular surgery as outpatient. * Peripheral arterial disease, patient noted bilateral subclavian artery partial thrombosis. Follow-up with vascular surgery as outpatient. * Hypertension: Hold antihypertensives for the next 24 hours to maintain cerebral perfusion pressure. VTE prophylaxis with enoxaparin CODE STATUS: Addressed with the patient. Patient wishes to be full code. Charges/Coding Visit Charges Inpatient E&M: 19808 Init Hosp L3 08/17/24 0748 <Electronically signed by Enzo Mann DO> Cosigner Signature (if applicable): CC: Dr. Sera Castillo MD; Dr. Enzo Mann DO~ Signed ADDENDUM by Dr. Enzo Mann DO on 08/17/24 at 1428 Addendum MRI brain showes small acute infarct in the left thalamus. Punctate acute infarcts of the right cerebellum 08/17/24 1428<Electronically signed by Enzo Mann DO> Cosigner Signature (if applicable): cc: Dr. Sera Castillo MD; Dr. Enzo Mann DO ~* Signed [facility] Work Phone: [phone] 658-922803-11-2025 History and physical note [facility] Medical Records Department [address] [place] [address] H&P Exam - Hospitalist 08/17/24 0740 MR#: [id number] Acct: [id number] Name: LEO ANGELO Rep #:[id number] : 1945 79 From: Enzo Mann DO PCP: Dr. Sera Castillo MD Status:ADM I N Location: ICU CVICU 3-1 HPI - General General Date of Service: 08/17/24 Chief Complaint: Right-sided weakness HPI Narrative LEO ANGELO, is a 79 M who presents with right-sided weakness. Patient awoke this morning with right-sided weakness and instability. Last known well was around 2030 on the . Patient had dense right-sided hemiparesis when he presented. Patient underwent a workup in the emergency room. CTA of thehead and neck showed an acute basilar artery thrombosis, right supra Teba heart cheerio occlusion which may be acute to subacute. Partial thrombosis of the visualized subclavian artery, greater than 70% stenosis of the left proximal ICA, approximately 50% stenosis of the right proximal ICA. Partialthrombosis of the right subclavian artery. [facility] teleneurology was consulted and patient wasdeemed not a candidate for TNK given unknown time of onset greater than 4 hours and did not feel that transfer was necessary for the CTA findings. Patient has never had a stroke before. 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) Alcoholism Major depression COPD (chronic obstructive pulmonary disease) Essential (primary) hypertension AAA (abdominal aortic aneurysm) without rupture Home Medications ?Medication ?Instructions ?Recorded ?Last Taken ?Type ramipril 10 mg capsule 10 mg PO DAILY 04/12/21 Unkn own History atorvastatin 40 mg tablet 40 mg PO DAILY #30 tabs 04/10 02/27 Unknown Rx aspirin 81 mg chewable tablet 81 mg PO DAILY 03/08/22 Unknown History omeprazole 40 mg capsule,delayed 40 mg PO DAILY #30 ca ps 03/08/22 Unknown Rx release nifedipine 30 mg tablet,extended 30 mg PO DAILY PCP gamez d him on 60 03/10/23 Unknown Rx release 24 hr mg but bp too low, please ch valeri #90 tabs mecobalamin (vitamin B12) 1,000 1,000 mcg PO DAILY 05/31 Unknown History mcg chewable tablet Allergy/AdvReac Type Severity Reaction Status Date / Time latex Allergy Rash Verified 08/17/24 05:56 Family History Mother CVA (cerebral vascular accident) Surgical History History of total right hip replacement History of left heart catheterization (09/11/18) Social History Smoking Status: Current every day smoker tobacco type: cigarettes alcohol intake: former substance use type: does not use caffeine: Yes Type: coffee ROS ROS Narrative No visual changes. No headache. All review of systems were negative except as mentioned above in the history of present illness and the other review of systems. Vital Signs Vital Signs Vital Signs: 08/17/24 05:55 08/17/24 05:56 08/17/24 06:03 Temperature 36.7 C Temperature Source Oral Pulse Rate 60 61 Respiratory Rate 16 16 Blood Pressure 135/63 H 105/65 128/63 H Blood Pressure Mean 87 78 84 Pulse Ox 97 97 Oxygen Delivery Method Room Air Room Air Room Air 08/17/24 06:09 08/17/24 06:25 08/17/24 06:30 Temperature Temperature Source Pulse Rate 60 60 Respiratory Rate 18 18 Blood Pressure 119/64 119/64 Blood Pressure Mean 82 82 Pulse Ox 94 98 98 Oxygen Delivery Method Room Air Room Air Room Air 08/17/24 06:54 08/17/24 07:00 08/17/24 07:00 Temperature Temperature Source Pulse Rate 66 62 63 Respiratory Rate 18 18 18 Blood Pressure 122/63 H 122/63 H 122/63 H Blood Pressure Mean 82 82 82 Pulse Ox 96 97 97 Oxygen Delivery Method Room Air Room Air Room Air 08/17/24 07:30 Temperature Temperature Source Pulse Rate 57 L Respiratory Rate 18 Blood Pressure 112/84 H Blood Pressure Mean 93 Pulse Ox 97 Oxygen Delivery Method Room Air Weight Weight: 61.5 kg Body Mass Index (BMI) 26.4 Physical Exam Narrative - Physical Exam General: Alert, Oriented x3, Cooperative HEENT: Atraumatic, PERRLA, EOMI, Normocephalic Oral: Moist Mucosa, No Gingival or Mucosal Lesions/ Ulcerations Neck: No thyromegaly, Negative Carotid Bruits Lungs: Clear to auscultation, Normal air movement Cardiovascular: Regular rate, Normal S1, Normal S2, No murmurs Abdomen: Bowel Sounds Present, Soft, Non Tender, Non-Distended, No Hepato-splenomegaly Extremities: No clubbing, No cyanosis, No edema, Capillary Refill Less than 3 Seconds Skin: No rashes, No breakdown Musculoskeletal: No Tenderness to Palpation of Joints or Extremities Neurological: Cranial nerves II through XII grossly intact. Muscle strength 4:55 in the AM left upper and left lower extremity. 4-5 in the right upper and right lower extremity. Ataxia the right [id number]-[id number] and right [id number]. Sensation grossly intact throughout. Psych/Mental Status: Normal Affect, Appropriate Results Lab / Micro Data Attestation: I reviewed the patient's lab results. 08/17/24 06:12 08/17/24 06:12 Labs: Laboratory Results - last 24 hr 08/17/24 06:12: WBC 5.6, RBC 3.67 L, Hgb 10.9 L, Hct 33.0 L, MCV 89.9, MCH 29.7,MCHC 33.0, RDW Std Deviation 44.2 H, RDW Coeff of Michael 13.5, Plt Count 204, MPV 9.5, Immature Gran % (Auto) 0.200, Neut % (Auto) 68.6, Lymph % (Auto) 18.4 L, Fergus % (Auto) 9.4, Eos % (Auto) 2.0, Baso % (Auto) 1.4 H, Absolute Neuts (auto) 3.8, Absolute Lymphs (auto) 1.02, Nucleated RBC % 0, PT 13.6, INR 1.0, APTT 28.4, Sodium 134, Potassium 4.1, Chloride 101, Carbon Dioxide 23.5, Anion Gap 10, BUN 19, Creatinine 0.85,Estim Creat Clear Calc 53.53, Est GFR (MDRD) Non-Af88, BUN/Creatinine Ratio 22.5 H, Glucose 127 H, Calcium 8.9, Ethyl Alcohol < 10.1 EKG Initial EKG: Attestation: I personally reviewed and interpreted this EKG as follows: Prior EKG tracings: available for review EKG Rhythm Intrepretation: Sinus Rhythm Imaging Radiology Impression Brain CT 08/17/24 05:55 IMPRESSION: No acute intracranial hemorrhage, mass effect or midline shift. Extensive chronic microvascular ischemic disease. If there is concern for acute infarct, MRI may be obtained. One or more dose reduction techniques were used (e.g., Automated exposure control, adjustment of the mA and/or kV according to patient size, use of iterative reconstruction technique). Reading Location: [facility] Chest X-Ray 08/17/24 05:55 IMPRESSION: As above. Reading Location: [facility] Head/Neck CTA 08/17/24 05:56 IMPRESSION: Limited examination. 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 Partial thrombosis of visualized subclavian artery. Greater than 70 percent stenosis within the left proximal ICA. Approximately 50 percent stenosis within the right proximal ICA. Partial thrombosis of the right subclavian artery, partially visualized. Ray Dennis MD was notified of the critical findings in the ED at 6:33 a.m. Eastern standard time. One or more dose reduction techniques were used (e.g., Automated exposure control, adjustment of the mA and/or kV according to patient size, use of iterative reconstruction technique). Red Alert: Acute basilar artery thrombosis, right vertebral artery thrombosis near the acute.. The critical information above was relayed directly by me by telephone to Ray Dennis on 08/17/2024t 6:33 am with readback verification. Reading Location: [id number] Assessment & Plan Assessment/Plan (1) Acute cerebrovascular accident (CVA): PLAN: Unknown time of onset. Patient not a candidate for TNK nor is he candidate for LVO retrieval. Patient loaded with aspirin and clopidogrel in the emergency room. Will continue with that on the floor. Patient already on 40 mg of atorvastatin. Check MRI of the brain, carotid ultrasound, 2D echocardiogram, therapy evaluations (PT, OT and speech therapy) (2) Carotid stenosis: PLAN: patient was noted to have carotid stenosis more prominent on the left. Recommend the patient follow-up with vascular surgery as outpatient. Patient has vascular surgery at [facility] for his aortic aneurysms. Check carotid duplex (3) Tobacco abuse: PLAN: Exam the patient has daughter that smoking is his biggest preventable riskfactor. Strongly advised cessation to help prevent further strokes in the future. PLAN: Plan Chronic conditions * Aortic aneurysms, thoracic and abdominal. Currently stable. Follow-up with vascular surgery as outpatient. * Peripheral arterial disease, patient noted bilateral subclavian artery partial thrombosis. Follow-up with vascular surgery as outpatient. * Hypertension: Hold antihypertensives for the next 24 hours to maintain cerebral perfusion pressure. VTE prophylaxis with enoxaparin CODE STATUS: Addressed with the patient. Patient wishes to be full code. Charges/Coding Visit Charges Inpatient E&M: 25266 Init Hosp L3 08/17/24 0748 Cosigner Signature (if applicable): CC: Dr. Sera Castillo MD; Dr. Enzo Mann DO~ Signed ADDENDUM by Dr. Enzo Mann DO on 08/17/24 at 1428 Addendum MRI brain showes small acute infarct in the left thalamus. Punctate acute infarcts of the right cerebellum 08/17/24 1428 Cosigner Signature (if applicable): cc: Dr. Sera Castillo MD; Dr. Enzo Mann DO ~* Signed [facility]03-11-2025 Discharge summary Author Ray Dennis [facility] Note Date/Time August 17, 2024 7:1 9am [facility] Medical Records Department [address] [place] [address] Emergency Department Summary 08/17/24 MR#: [id number] Acct: [id number] Name: LEO ANGELO Rep #:[id number] : 1945 79 From: Ray Dennis DO PCP: Dr. Sera Castillo MD Status:REG E R Location: ED HPI History of Present Illness Chief Complaint: Stroke Alert Informant: patient and EMS Narrative Narrative: Patient is an 79-year-old male with past medical history of hypertension hyperlipidemia COPD nicotine dependence and CAD. Reportedly he went to bed around 830/9 PM last night and then awoke this morning and had a right arm and leg weakness as well as inability to stand or sit up as he was falling towards the right. Secondary to this EMS was called. They reported upon arrival he is awake and alert but they note right sided weakness. They report his blood sugaris normal. With concern for an acute CVA he was transported to the ER for evaluation. Upon arrival to the ER he is awake and alert and does have right sided deficit but there is improvement in strength of the arms and legs comparedto a EMS reported. 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) Alcoholism Major depression COPD (chronic obstructive pulmonary disease) Essential (primary) hypertension AAA (abdominal aortic aneurysm) without rupture Home Medications ?Medication ?Instructions ?Recorded ?Last Taken ?Type ramipril 10 mg capsule 10 mg PO DAILY 04/12/21 Unkn own History atorvastatin 40 mg tablet 40 mg PO DAILY #30 tabs 04/10 02/27 Unknown Rx aspirin 81 mg chewable tablet 81 mg PO DAILY 03/08/22 Unknown History omeprazole 40 mg capsule,delayed 40 mg PO DAILY #30 ca ps 03/08/22 Unknown Rx release nifedipine 30 mg tablet,extended 30 mg PO DAILY PCP gamez d him on 60 03/10/23 Unknown Rx release 24 hr mg but bp too low, please ch valeri #90 tabs mecobalamin (vitamin B12) 1,000 1,000 mcg PO DAILY 05/31 Unknown History mcg chewable tablet Allergy/AdvReac Type Severity Reaction Status Date / Time latex Allergy Rash Verified 08/17/24 05:56 Family History Mother CVA (cerebral vascular accident) Surgical History History of left heart catheterization (09/11/18) History of total right hip replacement Social History Smoking Status: Current every day smoker tobacco type: cigarettes alcohol intake: former substance use type: does not use caffeine: Yes Type: coffee ROS ROS ED Constitutional Constitutional ED: Denies chills or fever(s) Eyes Eyes: Denies blurry vision or change in vision ENT ENT ED: Denies sore throat Cardiovascular Cardiovascular: Denies chest pain, palpitations or racing heartbeat Respiratory/Chest Respiratory/Chest: Denies cough or dyspnea Gastrointestinal Gastrointestinal: Denies abdominal pain, diarrhea, nausea or vomiting Genitourinary Genitourinary ED: Denies dysuria Musculoskeletal Musculoskeletal: Denies back pain or neck pain Integumentary Denies rash Neurologic Neurologic: Reports paresthesias and weakness; Denies headache(s) Hematologic/Lymphatic Hematologic/Lymphatic: Denies easy bleeding or easy bruising EXAM Physical Exam Const Vital Signs: 08/17/24 05:55 08/17/24 05:56 08/17/24 06:03 Temperature 98.0 F Temperature Source Oral Pulse Rate 60 61 Respiratory Rate 16 16 Blood Pressure 135/63 H 105/65 128/63 H Blood Pressure Mean 87 78 84 Pulse Ox 97 97 Oxygen Delivery Method Room Air Room Air Room Air 08/17/24 06:09 08/17/24 06:25 08/17/24 06:30 Temperature Temperature Source Pulse Rate 60 60 Respiratory Rate 18 18 Blood Pressure 119/64 119/64 Blood Pressure Mean 82 82 Pulse Ox 94 98 98 Oxygen Delivery Method Room Air Room Air Room Air 08/17/24 06:54 08/17/24 07:00 08/17/24 07:00 Temperature Temperature Source Pulse Rate 66 62 63 Respiratory Rate 18 18 18 Blood Pressure 122/63 H 122/63 H 122/63 H Blood Pressure Mean 82 82 82 Pulse Ox 96 97 97 Oxygen Delivery Method Room Air Room Air Room Air Positive well nourished and well developed General Appearance ED: well developed; Negative for pallor HEENT HEENT Narrative: Normocephalic atraumatic Eyes PERRL and EOMs intact bilaterally General Eye ED: Negative for scleral icterus Neck supple Neck Narrative: No nuchal rigidity or meningeal signs Chest Wall palpation of chest normal Resp normal respiratory effort Resp Narrative: Breath sounds are diminished throughout with diffuse expiratory wheeze and rhonchi in the bilateral bases consistent with history of COPD but no signs of respiratory distress Cardio regular rate and regular rhythm Rate: other Other Details: Heart is regular rate and rhythm Radial and carotid pulses are equal and symmetric GI normal to inspection, nondistended, normoactive bowel sounds, non-tender, non-distended and no masses GI Narrative: No voluntary guarding or rigidity or pulsatile mass Auscultation: normoactive bowel sounds Palpation: soft Extremity normal to inspection Extremity Narrative: No asymmetric edema no pitting edema negative Homans' sign bilaterally Neuro oriented x3 Neuro Narrative: GCS of 15 Patient is awake and alert to person place and time He has right arm weakness and right leg weakness compared to left as there is a drift to both the right upper and lower extremity. He receives 1 point for the arm and leg drift. There is mild right sided facial paralysis noted as well which she also receives 1 point. He has loss of vision in the right eye upper outer quadrant for which he receives 1 point. There is also ataxia of the rightarm compared to the left and this receives 1 point as well Total NIH stroke scale score of 5 No truncal ataxia noted Sensorium / Orientation: alert Psych mental status grossly normal Skin no rashes or lesions noted General Skin Exam: Negative for jaundice or pallor MDM MDM MDM Narrative Medical decision making narrative: Patient arrived to the ER with stable vitals he is awake and alert and protecting his airway. Patient reported he went to bed around 830 or [address] EMS reported truncal ataxia with right arm and leg flaccid paralysis. There has been spontaneous improvement by the time he arrived to theER. Based on the fact his symptoms are considered a wake-up stroke and he went to bed early last evening he is outside any window for TNK and this is confirmedby the [facility] neurologist. The patient receives a stroke scale score of 5 upon arrival. On repeat evaluation he has had resolution of his right leg weakness change in his stroke scale score to a 4. The noncontrast CT reveals no bleed just microvascular ischemic changes were correlates with his medical condition and history. The CTA revealed multiple areas of thrombosis and occlusion but the neurologist feels this is chronic and related to his history of hypertensionhyperlipidemia nicotine dependence and CAD. He feels there is no need for emergent transfer or thrombectomy and that medical management at this time with aspirin and Plavix and continued workup with carotid ultrasound as well as MRI is the most appropriate plan of care. The case was discussed with patient and family and they are agreeable to this especially as there has been improvement from his initial symptoms at awakening. The plan of care was discussed with thehospitalist who agrees to accept the patient for continued treatment History & Record Review Discussion w/independent historian: EMS personnel, Patient and Family Lab Data Attestation: I reviewed the patient's lab results. Labs: Laboratory Results - last 24 hr 08/17/24 06:12 WBC 5.6 RBC 3.67 L Hgb 10.9 L Hct 33.0 L MCV 89.9 MCH 29.7 MCHC 33.0 RDW Std Deviation 44.2 H RDW Coeff of Michael 13.5 Plt Count 204 MPV 9.5 Immature Gran % (Auto) 0.200 Neut % (Auto) 68.6 Lymph % (Auto) 18.4 L Fergus % (Auto) 9.4 Eos % (Auto) 2.0 Baso % (Auto) 1.4 H Absolute Neuts (auto) 3.8 Absolute Lymphs (auto) 1.02 Nucleated RBC % 0 PT 13.6 INR 1.0 APTT 28.4 Sodium 134 Potassium 4.1 Chloride 101 Carbon Dioxide 23.5 Anion Gap 10 BUN 19 Creatinine 0.85 Estim Creat Clear Calc 53.53 Est GFR (MDRD) Non-Af 88 BUN/Creatinine Ratio 22.5 H Glucose 127 H Calcium 8.9 Ethyl Alcohol < 10.1 Radiography Diagnostic Testing: Clinical Impression(s) from Imaging Studies Brain CT 08/17/24 05:55 IMPRESSION: No acute intracranial hemorrhage, mass effect or midline shift. Extensive chronic microvascular ischemic disease. If there is concern for acute infarct, MRI may be obtained. One or more dose reduction techniques were used (e.g., Automated exposure control, adjustment of the mA and/or kV according to patient size, use of iterative reconstruction technique). Reading Location: [facility] Chest X-Ray 08/17/24 05:55 IMPRESSION: As above. Reading Location: [facility] Head/Neck CTA 08/17/24 05:56 IMPRESSION: Limited examination. 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 Partial thrombosis of visualized subclavian artery. Greater than 70 percent stenosis within the left proximal ICA. Approximately 50 percent stenosis within the right proximal ICA. Partial thrombosis of the right subclavian artery, partially visualized. Ray Dennis MD was notified of the critical findings in the ED at 6:33 a.m. Eastern standard time. One or more dose reduction techniques were used (e.g., Automated exposure control, adjustment of the mA and/or kV according to patient size, use of iterative reconstruction technique). Red Alert: Acute basilar artery thrombosis, right vertebral artery thrombosis near the acute.. The critical information above was relayed directly by me by telephone to Ray Dennis on 08/17/2024 at 6:33 am with readback verification. Reading Location: [facility] Management Discussion w/another healthcare provider: Hospitalist, Pairing Machine Operator and Radiologist Critical Care Time Critical Care Time: Yes Critical care time (excluding procedures): Discussing w/Patient &/or Family/CareGiver, Discussing w/Consultants, Arranging Admission or Transfer and - (Please note critical care time of 33 minutes) Discharge Plan Dx/Rx/DC Orders Clinical Impression: Acute cerebrovascular accident (CVA), Essential (primary) hypertension, Hyperlipidemia, Nicotine dependence Disposition Disposition: [facility] What to do if you have Problems For any increased pain, shortness of breath, bleeding, nausea or vomiting, chestpain, or any unexpected problems, contact your Primary Care Provider. Call [facility] ([phone]) or report to the closest Emergency Room. Call 911 if necessary. 08/17/24 0719 <Electronically signed by Ray Dennis DO> Cosigner Signature (if applicable): CC: Dr. Sera Csatillo MD ~ Signed [facility] Work Phone: 1(356) 656-319803-11-2025 Evaluation note* Diagnosis Onset Date Resolution Status Admit Date Acute cerebrovascular accide nt (CVA) acute August 17, 2024 7:18am Carotid stenosis acute August 172024 7:18am Tobacco abuse acute August 17, 2024 7:18am [facility] Work Phone: [phone] 460-766203-11-2025 Evaluation note* Diagnosis Onset Date Resolution Status Admit Date Acute cerebrovascular accide nt (CVA) resolved August 17, 2024 7:18am Carotid stenosis inactive August 172024 7:18am Tobacco abuse inactive August 17, 2024 7:18am Ataxia acute August 18 3:22pm Cognitive dysfunction acute [facility] 2024 3:22pm Dementia with behavioral disturbance acute August 18, 2024 3:22pm Depression acute August 18 3:22pm Facial droop acute August 18, 2024 3:22pm GERD (gastroesophageal reflu x disease) acute August 18, 2024 3:22pm History of alcoholism acute [facility] 2024 3:22pm Normochromic normocytic anemia acute August 18, 2024 3:22pm Oropharyngeal dysphagia acute [facility] 2024 3:22pm Paresthesias acute August 18, 2024 3:22pm Physical debility acute August 072024 3:22pm Psychomotor agitation acute [facility] 2024 3:22pm Right hemiparesis acute August 072024 3:22pm Wernickes encephalopathy acute August 18, 2024 3:22pm AAA (abdominal aortic aneury sm) without rupture chronic August 18, 2024 3:22pm Aneurysm of right subclavian artery chronic August 18, 2024 3:22pm COPD (chronic obstructive pulmonary disease) chronic August 18, 2 025 3:22pm Diverticulosis chronic August 3:22pm History of depression chronic [facility] 2024 3:22pm HTN (hypertension) chronic August 18, 2024 3:22pm Hyperlipidemia chronic August 3:22pm Nonobstructive atheroscleros is of coronary artery chronic August 18, 2 025 3:22pm Prothrombin gene mutation chronic August 18, 2024 3:22pm Thoracic aortic aneurysm (TAA) chron ic August 18, 2024 3:22pm Acute cerebrovascular accide nt (CVA) resolved August 18, 2024 3:22pm Hypotension resolved August 18, 2 025 3:22pm Carotid stenosis inactive August 182024 3:22pm Tobacco abuse inactive August 18, 2024 3:22pm [facility] Work Phone: [phone] 950-408103-11-2025 Evaluation note* Diagnosis Onset Date Resolution Status Admit Date Acute cerebrovascular accide nt (CVA) resolved August 17, 2024 7:18am Carotid stenosis inactive August 172024 7:18am Tobacco abuse inactive August 17, 2024 7:18am Ataxia acute August 18 3:22pm Cognitive dysfunction acute Aug 3:22pm Dementia with behavioral disturbance acute August 18, 2024 3:22pm Depression acute August 18 3:22pm Facial droop acute August 18, 2024 3:22pm Hyperlipidemia acute August 3:22pm Normochromic normocytic anemia acute August 18, 2024 3:22pm Oropharyngeal dysphagia acute 2024 3:22pm Paresthesias acute August 18, 2024 3:22pm Physical debility acute August 072024 3:22pm Psychomotor agitation acute Aug 3:22pm Right hemiparesis acute August 072024 3:22pm Wernickes encephalopathy acute August 18, 2024 3:22pm Prothrombin gene mutation chronic August 18, 2024 3:22pm Acute cerebrovascular accide nt (CVA) resolved August 18, 2024 3:22pm Hypotension resolved August 18, 2 025 3:22pm AAA (abdominal aortic aneury sm) without rupture inactive August 18, 2024 3:22pm Aneurysm of right subclavian artery inactive August 18, 2024 3:22pm Carotid stenosis inactive August 182024 3:22pm COPD (chronic obstructive pulmonary disease) inactive August 18, 2 025 3:22pm Diverticulosis inactive August 3:22pm GERD (gastroesophageal reflu x disease) inactive August 18, 2024 3:22pm History of alcoholism inactive [facility] 2024 3:22pm History of depression inactive [facility] 2024 3:22pm HTN (hypertension) inactive August 18, 2024 3:22pm Nonobstructive atheroscleros is of coronary artery inactive August 18, 3:22pm Thoracic aortic aneurysm (TAA) inact lupe August 18, 2024 3:22pm Tobacco abuse inactive August 18, 2024 3:22pm Ataxia acute September 13 8:17am Depression acute September 13 8:17am Facial droop acute September 13, 025 8:17am Hyperlipidemia acute September 13, 2024 8:17am Mild cognitive impairment acute September 13, 2024 8:17am Paresthesias acute September 13, 8:17am Stroke acute September 13 8:17am Prothrombin gene mutation chronic September 13, 2024 8:17am [facility] Work Phone: [phone] 834-715203-11-2025 Evaluation note* Diagnosis Onset Date Resolution Status Admit Date Acute cerebrovascular accide nt (CVA) resolved August 17, 2024 7:18am Carotid stenosis inactive August 172024 7:18am Tobacco abuse inactive August 17, 2024 7:18am AAA (abdominal aortic aneury sm) without rupture acute August 18, 2024 3:22pm Aneurysm of right subclavian artery acute August 18, 2024 3:22pm Ataxia acute August 18 3:22pm Cognitive dysfunction acute Aug 2024 3:22pm Dementia with behavioral disturbance acute August 18, 2024 3:22pm Depression acute August 18 3:22pm Facial droop acute August 18, 2024 3:22pm Hyperlipidemia acute August 3:22pm Normochromic normocytic anemia acute August 18, 2024 3:22pm Oropharyngeal dysphagia acute [facility] 2024 3:22pm Paresthesias acute August 18, 2024 3:22pm Physical debility acute August 072024 3:22pm Psychomotor agitation acute [facility] 2024 3:22pm Right hemiparesis acute August 072024 3:22pm Thoracic aortic aneurysm (TAA) acute August 18, 2024 3:22pm Wernickes encephalopathy acute August 18, 2024 3:22pm Prothrombin gene mutation chronic August 18, 2024 3:22pm Acute cerebrovascular accide nt (CVA) resolved August 18, 2024 3:22pm Hypotension resolved August 18, 025 3:22pm Carotid stenosis inactive August 182024 3:22pm COPD (chronic obstructive pulmonary disease) inactive August 18, 025 3:22pm Diverticulosis inactive August 3:22pm GERD (gastroesophageal reflu x disease) inactive August 18, 2024 3:22pm History of alcoholism inactive Aug 3:22pm History of depression inactive Aug 2024 3:22pm HTN (hypertension) inactive August 18, 2024 3:22pm Nonobstructive atheroscleros is of coronary artery inactive August 18, 025 3:22pm Tobacco abuse inactive August 18, 2024 3:22pm Ataxia acute September 13 8:17am Depression acute September 13 8:17am Facial droop acute September 13, 025 8:17am Hyperlipidemia acute September 13, 2024 8:17am Mild cognitive impairment acute September 13, 2024 8:17am Paresthesias acute September 13, 025 8:17am Stroke acute September 13 8:17am Prothrombin gene mutation chronic September 13, 2024 8:17am AAA (abdominal aortic aneury sm) without rupture acute October 19, 2024 1 0:47am Aneurysm of right subclavian artery acute October 19, 2024 1 0:47am Carotid artery disease acute 2024 10:47am Thoracic aortic aneurysm (TAA) acute October 19, 2024 10:47am [facility] Work Phone: [phone] 375-800203-11-2025 History and physical note [facility] Medical Records Department [address] [place] [address] H&P Exam - Hospitalist 08/17/24 0740 MR#: [id number] Acct: [id number] Name: LEO ANGELO Rep #:[id number] : 1945 79 From: Enzo Mann DO PCP: Dr. Sera Castillo MD Status:REG E R Location: ED HPI - General General Date of Service: 08/17/24 Chief Complaint: Right-sided weakness HPI Narrative LEO DOTTIE, is a 79 M who presents with right-sided weakness. Patient awoke this morning with right-sided weakness and instability. Last known well was around 2030 on the . Patient had dense right-sided hemiparesis when he presented. Patient underwent a workup in the emergency room. CTA of thehead and neck showed an acute basilar artery thrombosis, right supra Teba heart cheerio occlusion which may be acute to subacute. Partial thrombosis of the visualized subclavian artery, greater than 70% stenosis of the left proximal ICA, approximately 50% stenosis of the right proximal ICA. Partialthrombosis of the right subclavian artery. [facility] teleneurology was consulted and patient wasdeemed not a candidate for TNK given unknown time of onset greater than 4 hours and did not feel that transfer was necessary for the CTA findings. Patient has never had a stroke before. 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) Alcoholism Major depression COPD (chronic obstructive pulmonary disease) Essential (primary) hypertension AAA (abdominal aortic aneurysm) without rupture Home Medications ?Medication ?Instructions ?Recorded ?Last Taken ?Type ramipril 10 mg capsule 10 mg PO DAILY 04/12/21 Unkn own History atorvastatin 40 mg tablet 40 mg PO DAILY #30 tabs 04/10 02/27 Unknown Rx aspirin 81 mg chewable tablet 81 mg PO DAILY 03/08/22 Unknown History omeprazole 40 mg capsule,delayed 40 mg PO DAILY #30 ca ps 03/08/22 Unknown Rx release nifedipine 30 mg tablet,extended 30 mg PO DAILY PCP gamez d him on 60 03/10/23 Unknown Rx release 24 hr mg but bp too low, please ch valeri #90 tabs mecobalamin (vitamin B12) 1,000 1,000 mcg PO DAILY 05/31 Unknown History mcg chewable tablet Allergy/AdvReac Type Severity Reaction Status Date / Time latex Allergy Rash Verified 08/17/24 05:56 Family History Mother CVA (cerebral vascular accident) Surgical History History of total right hip replacement History of left heart catheterization (09/11/18) Social History Smoking Status: Current every day smoker tobacco type: cigarettes alcohol intake: former substance use type: does not use caffeine: Yes Type: coffee ROS ROS Narrative No visual changes. No headache. All review of systems were negative except as mentioned above in the history of present illness and the other review of systems. Vital Signs Vital Signs Vital Signs: 08/17/24 05:55 08/17/24 05:56 08/17/24 06:03 Temperature 36.7 C Temperature Source Oral Pulse Rate 60 61 Respiratory Rate 16 16 Blood Pressure 135/63 H 105/65 128/63 H Blood Pressure Mean 87 78 84 Pulse Ox 97 97 Oxygen Delivery Method Room Air Room Air Room Air 08/17/24 06:09 08/17/24 06:25 08/17/24 06:30 Temperature Temperature Source Pulse Rate 60 60 Respiratory Rate 18 18 Blood Pressure 119/64 119/64 Blood Pressure Mean 82 82 Pulse Ox 94 98 98 Oxygen Delivery Method Room Air Room Air Room Air 08/17/24 06:54 08/17/24 07:00 08/17/24 07:00 Temperature Temperature Source Pulse Rate 66 62 63 Respiratory Rate 18 18 18 Blood Pressure 122/63 H 122/63 H 122/63 H Blood Pressure Mean 82 82 82 Pulse Ox 96 97 97 Oxygen Delivery Method Room Air Room Air Room Air 08/17/24 07:30 Temperature Temperature Source Pulse Rate 57 L Respiratory Rate 18 Blood Pressure 112/84 H Blood Pressure Mean 93 Pulse Ox 97 Oxygen Delivery Method Room Air Weight Weight: 61.5 kg Body Mass Index (BMI) 26.4 Physical Exam Narrative - Physical Exam General: Alert, Oriented x3, Cooperative HEENT: Atraumatic, PERRLA, EOMI, Normocephalic Oral: Moist Mucosa, No Gingival or Mucosal Lesions/ Ulcerations Neck: No thyromegaly, Negative Carotid Bruits Lungs: Clear to auscultation, Normal air movement Cardiovascular: Regular rate, Normal S1, Normal S2, No murmurs Abdomen: Bowel Sounds Present, Soft, Non Tender, Non-Distended, No Hepato-splenomegaly Extremities: No clubbing, No cyanosis, No edema, Capillary Refill Less than 3 Seconds Skin: No rashes, No breakdown Musculoskeletal: No Tenderness to Palpation of Joints or Extremities Neurological: Cranial nerves II through XII grossly intact. Muscle strength 4:55 in the AM left upper and left lower extremity. 4-5 in the right upper and right lower extremity. Ataxia the right [id number] and right [id number]. Sensation grossly intact throughout. Psych/Mental Status: Normal Affect, Appropriate Results Lab / Micro Data Attestation: I reviewed the patient's lab results. 08/17/24 06:12 08/17/24 06:12 Labs: Laboratory Results - last 24 hr 08/17/24 06:12: WBC 5.6, RBC 3.67 L, Hgb 10.9 L, Hct 33.0 L, MCV 89.9, MCH 29.7,MCHC 33.0, RDW Std Deviation 44.2 H, RDW Coeff of Michael 13.5, Plt Count 204, MPV 9.5, Immature Gran % (Auto) 0.200, Neut % (Auto) 68.6, Lymph % (Auto) 18.4 L, Fergus % (Auto) 9.4, Eos % (Auto) 2.0, Baso % (Auto) 1.4 H, Absolute Neuts (auto) 3.8, Absolute Lymphs (auto) 1.02, Nucleated RBC % 0, PT 13.6, INR 1.0, APTT 28.4, Sodium 134, Potassium 4.1, Chloride 101, Carbon Dioxide 23.5, Anion Gap 10, BUN 19, Creatinine 0.85,Estim Creat Clear Calc 53.53, Est GFR (MDRD) Non-Af88, BUN/Creatinine Ratio 22.5 H, Glucose 127 H, Calcium 8.9, Ethyl Alcohol < 10.1 EKG Initial EKG: Attestation: I personally reviewed and interpreted this EKG as follows: Prior EKG tracings: available for review EKG Rhythm Intrepretation: Sinus Rhythm Imaging Radiology Impression Brain CT 08/17/24 05:55 IMPRESSION: No acute intracranial hemorrhage, mass effect or midline shift. Extensive chronic microvascular ischemic disease. If there is concern for acute infarct, MRI may be obtained. One or more dose reduction techniques were used (e.g., Automated exposure control, adjustment of the mA and/or kV according to patient size, use of iterative reconstruction technique). Reading Location: [facility] Chest X-Ray 08/17/24 05:55 IMPRESSION: As above. Reading Location: [facility] Head/Neck CTA 08/17/24 05:56 IMPRESSION: Limited examination. 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 Partial thrombosis of visualized subclavian artery. Greater than 70 percent stenosis within the left proximal ICA. Approximately 50 percent stenosis within the right proximal ICA. Partial thrombosis of the right subclavian artery, partially visualized. Ray Dennis MD was notified of the critical findings in the ED at 6:33 a.m. Eastern standard time. One or more dose reduction techniques were used (e.g., Automated exposure control, adjustment of the mA and/or kV according to patient size, use of iterative reconstruction technique). Red Alert: Acute basilar artery thrombosis, right vertebral artery thrombosis near the acute.. The critical information above was relayed directly by me by telephone to Ray Dennis on 08/17/2024t 6:33 am with readback verification. Reading Location: [facility] Assessment & Plan Assessment/Plan (1) Acute cerebrovascular accident (CVA): PLAN: Unknown time of onset. Patient not a candidate for TNK nor is he candidate for LVO retrieval. Patient loaded with aspirin and clopidogrel in the emergency room. Will continue with that on the floor. Patient already on 40 mg of atorvastatin. Check MRI of the brain, carotid ultrasound, 2D echocardiogram, therapy evaluations (PT, OT and speech therapy) (2) Carotid stenosis: PLAN: patient was noted to have carotid stenosis more prominent on the left. Recommend the patient follow-up with vascular surgery as outpatient. Patient has vascular surgery at [facility] for his aortic aneurysms. Check carotid duplex (3) Tobacco abuse: PLAN: Exam the patient has daughter that smoking is his biggest preventable riskfactor. Strongly advised cessation to help prevent further strokes in the future. PLAN: Plan Chronic conditions * Aortic aneurysms, thoracic and abdominal. Currently stable. Follow-up with vascular surgery as outpatient. * Peripheral arterial disease, patient noted bilateral subclavian artery partial thrombosis. Follow-up with vascular surgery as outpatient. * Hypertension: Hold antihypertensives for the next 24 hours to maintain cerebral perfusion pressure. VTE prophylaxis with enoxaparin CODE STATUS: Addressed with the patient. Patient wishes to be full code. Charges/Coding Visit Charges Inpatient E&M: 43876 Init Hosp L3 08/17/24 0748 Cosigner Signature (if applicable): CC: Dr. Sera Castillo MD; Dr. Enzo Mann DO~ Signed [facility]03-11-2025 Discharge summary [facility] Medical Records Department [address] [place] [address] Emergency Department Summary 08/17/24 MR#: [id number] Acct: [id number] Name: LEO ANGELO Rep #:[id number] : 1945 79 From: Ray Dennis DO PCP: Dr. Sera Castillo MD Status:REG E R Location: ED HPI History of Present Illness Chief Complaint: Stroke Alert Informant: patient and EMS Narrative Narrative: Patient is an 79-year-old male with past medical history of hypertension hyperlipidemia COPD nicotine dependence and CAD. Reportedly he went to bed around 830/9 PM last night and then awoke this morning and had a right arm and leg weakness as well as inability to stand or sit up as he was falling towards the right. Secondary to this EMS was called. They reported upon arrival he is awake and alertbut they note right sided weakness. They report his blood sugaris normal. With concern for an acuteCVA he was transported to the ER for evaluation. Upon arrival to the ER he is awake and alert and does have right sided deficit but there is improvement in strength of the arms and legs comparedto a EMS reported. 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) Alcoholism Major depression COPD (chronic obstructive pulmonary disease) Essential (primary) hypertension AAA (abdominal aortic aneurysm) without rupture Home Medications ?Medication ?Instructions ?Recorded ?Last Taken ?Type ramipril 10 mg capsule 10 mg PO DAILY 11/04/21 Unkn own History atorvastatin 40 mg tablet 40 mg PO DAILY #30 tabs 04/10 02/27 Unknown Rx aspirin 81 mg chewable tablet 81 mg PO DAILY 03/08/22 Unknown History omeprazole 40 mg capsule,delayed 40 mg PO DAILY #30 ca ps 03/08/22 Unknown Rx release nifedipine 30 mg tablet,extended 30 mg PO DAILY PCP gamez d him on 60 03/10/23 Unknown Rx release 24 hr mg but bp too low, please ch valeri #90 tabs mecobalamin (vitamin B12) 1,000 1,000 mcg PO DAILY 05/31 Unknown History mcg chewable tablet Allergy/AdvReac Type Severity Reaction Status Date / Time latex Allergy Rash Verified 08/17/24 05:56 Family History Mother CVA (cerebral vascular accident) Surgical History History of left heart catheterization (09/11/18) History of total right hip replacement Social History Smoking Status: Current every day smoker tobacco type: cigarettes alcohol intake: former substance use type: does not use caffeine: Yes Type: coffee ROS ROS ED Constitutional Constitutional ED: Denies chills or fever(s) Eyes Eyes: Denies blurry vision or change in vision ENT ENT ED: Denies sore throat Cardiovascular Cardiovascular: Denies chest pain, palpitations or racing heartbeat Respiratory/Chest Respiratory/Chest: Denies cough or dyspnea Gastrointestinal Gastrointestinal: Denies abdominal pain, diarrhea, nausea or vomiting Genitourinary Genitourinary ED: Denies dysuria Musculoskeletal Musculoskeletal: Denies back pain or neck pain Integumentary Denies rash Neurologic Neurologic: Reports paresthesias and weakness; Denies headache(s) Hematologic/Lymphatic Hematologic/Lymphatic: Denies easy bleeding or easy bruising EXAM Physical Exam Const Vital Signs: 08/17/24 05:55 08/17/24 05:56 08/17/24 06:03 Temperature 98.0 F Temperature Source Oral Pulse Rate 60 61 Respiratory Rate 16 16 Blood Pressure 135/63 H 105/65 128/63 H Blood Pressure Mean 87 78 84 Pulse Ox 97 97 Oxygen Delivery Method Room Air Room Air Room Air 08/17/24 06:09 08/17/24 06:25 08/17/24 06:30 Temperature Temperature Source Pulse Rate 60 60 Respiratory Rate 18 18 Blood Pressure 119/64 119/64 Blood Pressure Mean 82 82 Pulse Ox 94 98 98 Oxygen Delivery Method Room Air Room Air Room Air 08/17/24 06:54 08/17/24 07:00 08/17/24 07:00 Temperature Temperature Source Pulse Rate 66 62 63 Respiratory Rate 18 18 18 Blood Pressure 122/63 H 122/63 H 122/63 H Blood Pressure Mean 82 82 82 Pulse Ox 96 97 97 Oxygen Delivery Method Room Air Room Air Room Air Positive well nourished and well developed General Appearance ED: well developed; Negative for pallor HEENT HEENT Narrative: Normocephalic atraumatic Eyes PERRL and EOMs intact bilaterally General Eye ED: Negative for scleral icterus Neck supple Neck Narrative: No nuchal rigidity or meningeal signs Chest Wall palpation of chest normal Resp normal respiratory effort Resp Narrative: Breath sounds are diminished throughout with diffuse expiratory wheeze and rhonchi in the bilateralbases consistent with history of COPD but no signs of respiratory distress Cardio regular rate and regular rhythm Rate: other Other Details: Heart is regular rate and rhythm Radial and carotid pulses are equal and symmetric GI normal to inspection, nondistended, normoactive bowel sounds, non-tender, non- distended and no masses GI Narrative: No voluntary guarding or rigidity or pulsatile mass Auscultation: normoactive bowel sounds Palpation: soft Extremity normal to inspection Extremity Narrative: No asymmetric edema no pitting edema negative Homans' sign bilaterally Neuro oriented x3 Neuro Narrative: GCS of 15 Patient is awake and alert to person place and time He has right arm weakness and right leg weakness compared to left as there is a drift to both the right upper and lower extremity. He receives 1 point for the arm and leg drift. There is mild right sided facial paralysis noted as well which she also receives 1 point. He has loss of vision in the right eye upper outer quadrant for which he receives 1 point. There is also ataxia of the rightarm compared to the left and this receives 1 point as well Total NIH stroke scale score of 5 No truncal ataxia noted Sensorium / Orientation: alert Psych mental status grossly normal Skin no rashes or lesions noted General Skin Exam: Negative for jaundice or pallor MDM MDM MDM Narrative Medical decision making narrative: Patient arrived to the ER with stable vitals he is awake and alert and protecting his airway. Patient reported he went to bed around 830 or [address] EMS reported truncal ataxia with right arm and leg flaccid paralysis. There has been spontaneous improvement by the time he arrived to theER. Based on the fact his symptoms are considered a wake-up stroke and he went to bed early last evening he is outside any window for TNK and this is confirmedby the [facility] neurologist. The patient receives a stroke scale score of 5 upon arrival. On repeat evaluation he has had resolution of his right leg weakness change in his stroke scale score to a 4. The noncontrast CT reveals no bleed just microvascular ischemic changes were correlates with his medical condition and history. The CTA revealed multiple areas of thrombosis and occlusion but the neurologist feels this is chronic and related to his history of hypertensionhyperlipidemia nicotine dependence and CAD. He feels there is no need for emergent transfer or thrombectomy and that medical management at this time with aspirin and Plavix and continued workup with carotid ultrasound as well as MRI is the most appropriate plan of care. The case was discussed with patient and family and they are agreeable to this especially as there has been improvement from his initial symptoms at awakening. The plan of care was discussed with thehospitalist who agrees to accept the patient for continued treatment History & Record Review Discussion w/independent historian: EMS personnel, Patient and Family Lab Data Attestation: I reviewed the patient's lab results. Labs: Laboratory Results - last 24 hr 08/17/24 06:12 WBC 5.6 RBC 3.67 L Hgb 10.9 L Hct 33.0 L MCV 89.9 MCH 29.7 MCHC 33.0 RDW Std Deviation 44.2 H RDW Coeff of Michael 13.5 Plt Count 204 MPV 9.5 Immature Gran % (Auto) 0.200 Neut % (Auto) 68.6 Lymph % (Auto) 18.4 L Fergus % (Auto) 9.4 Eos % (Auto) 2.0 Baso % (Auto) 1.4 H Absolute Neuts (auto) 3.8 Absolute Lymphs (auto) 1.02 Nucleated RBC % 0 PT 13.6 INR 1.0 APTT 28.4 Sodium 134 Potassium 4.1 Chloride 101 Carbon Dioxide 23.5 Anion Gap 10 BUN 19 Creatinine 0.85 Estim Creat Clear Calc 53.53 Est GFR (MDRD) Non-Af 88 BUN/Creatinine Ratio 22.5 H Glucose 127 H Calcium 8.9 Ethyl Alcohol < 10.1 Radiography Diagnostic Testing: Clinical Impression(s) from Imaging Studies Brain CT 08/17/24 05:55 IMPRESSION: No acute intracranial hemorrhage, mass effect or midline shift. Extensive chronic microvascular ischemic disease. If there is concern for acute infarct, MRI may be obtained. One or more dose reduction techniques were used (e.g., Automated exposure control, adjustment of the mA and/or kV according to patient size, use of iterative reconstruction technique). Reading Location: [facility] Chest X-Ray 08/17/24 05:55 IMPRESSION: As above. Reading Location: [facility] Head/Neck CTA 08/17/24 05:56 IMPRESSION: Limited examination. 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 Partial thrombosis of visualized subclavian artery. Greater than 70 percent stenosis within the left proximal ICA. Approximately 50 percent stenosis within the right proximal ICA. Partial thrombosis of the right subclavian artery, partially visualized. Ray Dennis MD was notified of the critical findings in the ED at 6:33 a.m. Eastern standard time. One or more dose reduction techniques were used (e.g., Automated exposure control, adjustment of the mA and/or kV according to patient size, use of iterative reconstruction technique). Red Alert: Acute basilar artery thrombosis, right vertebral artery thrombosis near the acute.. The critical information above was relayed directly by me by telephone to Ray Dennis on 08/17/2024t 6:33 am with readback verification. Reading Location: [facility] Management Discussion w/another healthcare provider: Hospitalist, Pairing Machine Operator and Radiologist Critical Care Time Critical Care Time: Yes Critical care time (excluding procedures): Discussing w/Patient &/or Family/CareGiver, Discussing w/Consultants, Arranging Admission or Transfer and - (Please note critical care time of 33 minutes) Discharge Plan Dx/Rx/DC Orders Clinical Impression: Acute cerebrovascular accident (CVA), Essential (primary) hypertension, Hyperlipidemia, Nicotine dependence Disposition Disposition: Acute Care Hospital [facility] What to do if you have Problems For any increased pain, shortness of breath, bleeding, nausea or vomiting, chestpain, or any unexpected problems, contact your Primary Care Provider. Call [facility] ([phone]) or report tothe closest Emergency Room. Call 911 if necessary. 08/17/24 0719 Cosigner Signature (if applicable): CC: Dr. Sera Castillo MD ~ Signed [facility]03-11-2025 Radiology Diagnostic study note [facility] Imaging Services [address] [place], [place] [id number] STROKE CTA Head AND Neck W/Con MR#: [id number] Acct: [id number] Name: LEO ANGELO Rep #: [id number] : 1945 M 79 From: Shawanda Cuellar MD PCP: Dr. Sera Castillo MD Status: REG E R Study:STROKE CTA Head AND Neck W/Con Date of Exam: 08/17/24 Exam# [id number] Ordering Dr: Jamila Dennis DO PROCEDURE: STROKE CTA HEAD AND NECK W/CON REASON FOR EXAM: NEURO DEFICIT, ACUTE, STROKE SUSPECTED TECHNIQUE: CTA imaging of the head and neck from the aortic arch to the skull vertex with intravenous contrast. 3D reconstructions. CONTRAST: COMPARISON: CT brain performed on the same day. FINDINGS: Limited examination. There are filling defects present within the basilar artery highly suspicious for thrombus. The right vertebral artery is occluded at multiple segments.. These findings are highly suspicious for acute thrombosis of the basilar artery. The left vertebral arteries patent. There is partial thrombosis of the visualized portion of the right subclavian artery best seen on image 94/560. There is atheromatous calcification seen at the carotid bulb bilaterally, [id number]. This is resulting into greater than 70% stenosis within the proximal left ICA and approximately 50% stenosis within the proximal right ICA. The anterior circulation is patent. Apparent filling defect within the left IJ (image 230/560) may represent thrombosis versus artifact. CT/STROKE CTA Head AND Neck W/Con IMPRESSION: Limited examination. 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 Partial thrombosis of visualized subclavian artery. Greater than 70 percent stenosis within the left proximal ICA. Approximately 50 percent stenosis within the right proximal ICA. Partial thrombosis of the right subclavian artery, partially visualized. Ray Dennis MD was notified of the critical findings in the ED at 6:33 a.m. Eastern standard time. One or more dose reduction techniques were used (e.g., Automated exposure control, adjustment of the mA and/or kV according to patient size, use of iterative reconstruction technique). Red Alert: Acute basilar artery thrombosis, right vertebral artery thrombosis near the acute.. The critical information above was relayed directly by me by telephone to Ray Dennis on 08/17/2024t 6:33 am with readback verification. Reading Location: [facility] CC: Dr. Sera Castillo MD; Ray Dennis DO ~ Hand Ii Blocker: Signed [facility]03-11-2025 Radiology Diagnostic study note [facility] Imaging Services [address] [place] [id number] Chest 1 View MR#: [id number] Acct: [id number] Name: LEO ANGELO Rep #: [id number] : 1945 M 79 From: Shawanda Cuellar MD PCP: Dr. Sera Castillo MD Status: REG E R Study:Chest 1 View Date of Exam: 5 Exam# [id number] Ordering Dr: Jamila Dennis DO PROCEDURE: CHEST 1 VIEW REASON FOR EXAM: NEURO DEFICIT, ACUTE, STROKE SUSPECTED TECHNIQUE: Frontal view of the chest. COMPARISON: Chest x-ray performed on 03/08/2022. FINDINGS: The heart size is normal. Interstitial markings appears to be increased when compared to prior examination. At the lung bases, there are conglomerate aeration of hazy interstitial opacities. These may be further evaluated with cross-sectional imaging. RAD/Chest 1 View IMPRESSION: As above. Reading Location: [facility] CC: Dr. Sera Castillo MD; Ray Dennis DO ~ Hand Ii Blocker: Signed [facility]03-11-2025 Radiology Diagnostic study note [facility] Imaging Services [address] [place] [address] STROKE Brain/Head without Cont MR#: [id number] Acct: [id number] Name: LEO ANGELO Rep #: [id number] : 1945 M 79 From: Shawanda Cuellar MD PCP: Dr. Sera Castillo MD Status: REG E R Study:STROKE Brain/Head without Cont Date of Exam: 08/17/24 Exam# [id number] Ordering Dr: Jamila Dennis DO PROCEDURE: STROKE BRAIN/HEAD WITHOUT CONT REASON FOR EXAM: NEURO DEFICIT, ACUTE, STROKE SUSPECTED TECHNIQUE: CT brain was performed without intravenous contrast. COMPARISON: None. FINDINGS: Extensive periventricular white matter changes are present consistent with chronic microvascular ischemic disease. Ventricles and sulci are mildly prominent due to volume loss. Bifrontal volume loss are also present. There isno definite acute intracranial hemorrhage, mass effect or midline shift. The calvarium is intact. Visualized paranasal sinuses are unremarkable. CT/STROKE Brain/Head without Cont IMPRESSION: No acute intracranial hemorrhage, mass effect or midline shift. Extensive chronic microvascular ischemic disease. If there is concern for acute infarct, MRI may be obtained. One or more dose reduction techniques were used (e.g., Automated exposure control, adjustment of the mA and/or kV according to patient size, use of iterative reconstruction technique). Reading Location: [id number] CC: Dr. Sera Castillo MD; Ray Dennis DO ~ Hand Ii Blocker: Signed [facility]03-10-2025 Telephone encounter Note* Telephone Encounter - Richelle Taylor RN - 08/16/2024 1:20 PM EDT The patient has been identified by name and date of : Yes Caregiver verified no other encounters exist for this prescription request: Yes Caregiver confirmed with patient/requestor that no other refills are due, in the near future, with this provider at this time: Yes The last office visit in the department: 07/20/2024 Does the patient have a future office visit with this provider/department: Yes 01/17/2025 Requested Prescriptions Pending Prescriptions Disp Refills ramipril (ALTACE) 10 mg capsule 90 capsule 3 Sig: Take 1 capsule by mouth once daily. Richelle Taylor RN August 16, 2024 1:[address] [facility]03-10-2025 Miscellaneous Notes* Telephone Encounter - Richelle Taylor RN - 08/16/2024 1:20 PM EDT The patient has been identified by name and date of : Yes Caregiver verified no other encounters exist for this prescription request: Yes Caregiver confirmed with patient/requestor that no other refills are due, in the near future, with this provider at this time: Yes The last office visit in the department: 07/20/2024 Does the patient have a future office visit with this provider/department: Yes 01/17/2025 Requested Prescriptions Pending Prescriptions Disp Refills ramipril (ALTACE) 10 mg capsule 90 capsule 3 Sig: Take 1 capsule by mouth once daily. Richelle Taylor RN August 16, 2024 1:20 PM documented [facility] Telephone encounter Note * Telephone Encounter - Richelle Bennett - 07/22/2024 4:52 PM EST Spoke with patient's and scheduled. Richelle Bennett [facility]02-13-2025 Miscellaneous Notes* Telephone Encounter - Richelle Bennett - 07/22/2024 4:52 PM EST Spoke with patient's and scheduled. Richelle Bennett * Telephone Encounter - GaylaElen mcclendonERNESTO - 07/20/2024 3:50 PM EST Please review consult for geriatric evaluation. Order pended. Please schedule for appointment in September 2024. Thank you. Elen ShuklaERNESTO July 20, 2024 3:53 PM documented in [facility] Telephone encounter Note * Telephone Encounter - GaylaElen mcclendonERNESTO - 07/20/2024 3:50 PM EST Please review consult for geriatric evaluation. Order pended. Please schedule for appointment in September 2024. Thank you. Elen GaylaERNESTO July 20, 2024 3:[address] [facility]02-11-2025 NoteHNO ID: [id number] Author: SERA CASTILLO MD Service: ? Author Type: Physician Type: Progress Notes Filed: 07/20/2024 17:41 Note Text: Leo Angelo is a 79 year old male here for a Medicare wellness visit. Medicare Health Risk Assessment General Health He thinks it is good Exercise: Minutes/Day He is very active but does not exercise, does the stairs 4 times at least. Does have a lawn and garden in the summer. Exercise: Days/Week See Above Alcohol: Daily Use He does not drink Alcohol: Drinks/Day No Alcohol: 6 or more drinks No Feel off balance Yes Concerns: Teeth/Dentures No Concerns: Sexual function no Troubled by feelings No Frequency: Eating healthy diet No ADLs requiring help No Safety precautions in home/vehicle No Smoke, vape, chews tobacco No Difficulty hearing No Difficulty seeing Has lasik surgery a few years ago. Current Providers Specialists: I have reviewed specialist-related care of the patient in the medical record. Medical/Family history review Reviewed and updated problem list, medical/surgical/family/social history, medications, and allergies. Opioid use review Opioid Medications (last 90 days) No data to display Anxiety/Depression screening Recommendation: no further intervention at this time Cognitive screening Cognitive screening reviewed and No further action needed (score 3-5). Functional Observation Was the patient's Timed Up AND Go test unsteady or >= 12 seconds? No Advance Care Planning Patient did not wish or was not able to name a surrogate decision maker or provide an advance care plan Measurements BP 127/72 Pulse 67 Ht 169 cm (5' 6.54) Wt 63.8 kg (140 lb 9.6 oz) SpO2 100% BMI 22.33 kg/m? Vision Screening: Follows with optometry/ophthalmology Assessment/Plan Medicare annual wellness visit, subsequent (Z.) - Counseled on healthy diet and regular exercise - Fall avoidance information provided - Personalized prevention plan provided Reason for Visit Leo Angelo is a 79 year oldmale who presents here Patient presents with: Physical: Dizziness, fell when got out of chair at home Health Maintenance Pneumococcal Vaccine: 50+(2 of 2 - PCV) RSV Vaccine(1 - 1-dose 75+ series) Shingrix Vaccine(3 of 3) Influenza Vaccine(1) Covid-19 Vaccine( season) Advance Directive Discussion HPI Patient notes he has been dizzy last week when getting up from a sitting position. He stood for a little bit and got better, He drinks 24 ounces of coffee, 16 ounces of water a little diet sprite on and off. He is on procardia. HTN: BP controlled today. Checks BP at home. Compliant with medications. Denies any chest pain, palpitations, SOB, swelling in the feet. Careful with diet to avoid salt, trying to eat more fruits and vegetables, exercises regularly HPL: Reviewed test results with patient , takes medications regularly , does not report side effects. Conscious to avoid red meats, full fat dairy and its by products. Exercising 3 to 5 times a week. He has a AAA which Is being followed up Was anemic last visit, does not have black colored stools No problem-specific Assessment AND Plan notes found for this encounter. PAST MEDICAL HISTORY Diagnosis Date AAA (abdominal aortic aneurysm) (HCC) 02/12/2023 4.8cm Bladder mass for cysto Chest pain Chronic bronchitis (HCC) Constipation Degeneration of lumbar or lumbosacral intervertebral disc 08/14/2007 Chronic off and on, Has been to Diverticulosis of colon (without mention of hemorrhage) GERD (gastroesophageal reflux disease) Internal hemorrhoids without mention of complication Other psoriasis left forearm; started out with abrasion and has never resolved (1999) Sciatica Right Thoracic aortic aneurysm without rupture (HCC) 4.8cm as of 10/03/17 Tobacco use disorder 08/14/2007 10 cigg/day Unspecified Asthma 01/26/2009 PAST SURGICAL HISTORY Procedure Laterality Date ANESTHESIA OPEN TOTAL HIP ARTHROPLASTY 12/2011 Right hip ARTHRP ACETBLR/PROX FEM PROSTC AGRFT/ALGRFT 12/18 Dr Trujillo COLONOSCOPY FLX DX W/COLLJ SPEC WHEN PFRMD 04/16/12 Colonoscopy repeat 10 years PAST SURGICAL HISTORY OF Removal of bursa sac of left elbow PAST SURGICAL HISTORY OF 05/20 Cataract surgery left TONSILLECTOMY PRIMARY/SECONDARY Tonsillectomy FAMILY HISTORY Problem Relation Age of Onset other (alzheimers) Mother COPD Father None Sister Aneurysm No Family History Social History Tobacco Use Smoking status: Every Day Current packs/day: 0.50 Average packs/day: 0.5 packs/day for 61.1 years (30.6 ttl pk-yrs) Types: Cigarettes Start date: 06/09/1964 Smokeless tobacco: Never Tobacco comments: varies day to day--now 0.5PPD or less, usually less Vaping Use Vaping status: Never Used Substance Use Topics Alcohol use: No Alcohol/week: 12.0 standard drinks of alcohol Types: 12 Cans of Beer (12oz) per week (more content not included)...[facility]02-11-2025 History of Present illness Narrative* Sera Castillo MD - 07/20/2024 3:12 PM EST Images from the original note were not included. Leo Angelo is a 79 year old male here for a Medicare wellness visit. Medicare Health Risk Assessment General Health He thinks it is good Exercise: Minutes/Day He is very active but does not exercise, does the stairs 4 times at least. Does have a lawn and garden in the summer. Exercise: Days/Week See Above Alcohol: Daily Use He does not drink Alcohol: Drinks/Day No Alcohol: 6 or more drinks No Feel off balance Yes Concerns: Teeth/Dentures No Concerns: Sexual function no Troubled by feelings No Frequency: Eating healthy diet No ADLs requiring help No Safety precautions in home/vehicle No Smoke, vape, chews tobacco No Difficulty hearing No Difficulty seeing Has lasik surgery a few years ago. Current Providers Specialists: I have reviewed specialist-related care of the patient in the medical record. Medical/Family history review Reviewed and updated problem list, medical/surgical/family/social history, medications, and allergies. Opioid use review Opioid Medications (last 90 days) No data to display Anxiety/Depression screening Recommendation: no further intervention at this time Cognitive screening Cognitive screening reviewed and No further action needed (score 3-5). Functional Observation Was the patient's Timed Up & Go test unsteady or >= 12 seconds? No Advance Care Planning Patient did not wish or was not able to name a surrogate decision maker or provide an advance care plan Measurements BP 127/72 Pulse 67 Ht 169 cm (5' 6.54) Wt 63.8 kg (140 lb 9.6 oz) SpO2 100% BMI 22.33 kg/m Vision Screening: Follows with optometry/ophthalmology Assessment/Plan Medicare annual wellness visit, subsequent (Z00.00) - Counseled on healthy diet and regular exercise - Fall avoidance information provided - Personalized prevention plan provided Reason for Visit Leo Angelo is a 79 year oldmale who presents here Patient presents with: Physical: Dizziness, fell when got out of chair at home Health Maintenance Pneumococcal Vaccine: 50+(2 of 2 - PCV) RSV Vaccine(1 - 1-dose 75+ series) Shingrix Vaccine(3 of 3) Influenza Vaccine(1) Covid-19 Vaccine( season) Advance Directive Discussion HPI Patient notes he has been dizzy last week when getting up from a sitting position. He stood for a little bit and got better, He drinks 24 ounces of coffee, 16 ounces of water a little diet sprite on and off. He is on procardia. HTN: BP controlled today. Checks BP at home. Compliant with medications. Denies any chest pain, palpitations, SOB, swelling in the feet. Careful with diet to avoid salt, trying to eat more fruits andvegetables, exercises regularly HPL: Reviewed test results with patient , takes medications regularly , does not report side effects. Conscious to avoid red meats, full fat dairy and its by products. Exercising 3 to 5 times a week. He has a AAA which Is being followed up Was anemic last visit, does not have black colored stools No problem-specific Assessment & Plan notes found for this encounter. PAST MEDICAL HISTORY Diagnosis Date AAA (abdominal aortic aneurysm) (HCC) 02/12/2023 4.8cm Bladder mass for cysto Chest pain Chronic bronchitis (HCC) Constipation Degeneration of lumbar or lumbosacral intervertebral disc 08/14/2007 Chronic off and on, Has been to Diverticulosis of colon (without mention of hemorrhage) GERD (gastroesophageal reflux disease) Internal hemorrhoids without mention of complication Other psoriasis left forearm; started out with abrasion and has never resolved (1999) Sciatica Right Thoracic aortic aneurysm without rupture ([facility]) 4.8cm as of 10/03/17 Tobacco use disorder 08/14/2007 10 cigg/day Unspecified Asthma 01/26/2009 PAST SURGICAL HISTORY Procedure Laterality Date ANESTHESIA OPEN TOTAL HIP ARTHROPLASTY 12/2011 Right hip ARTHRP ACETBLR/PROX FEM PROSTC AGRFT/ALGRFT 12/18 Dr Trujillo COLONOSCOPY FLX DX W/COLLJ SPEC WHEN PFRMD 04/16/12 Colonoscopy repeat 10 years PAST SURGICAL HISTORY OF Removal of bursa sac of left elbow PAST SURGICAL HISTORY OF 05/20 Cataract surgery left TONSILLECTOMY PRIMARY/SECONDARY <AGE 11 As child Tonsillectomy FAMILY HISTORY Problem Relation Age of Onset other (alzheimers) Mother COPD Father None Sister Aneurysm No Family History Social History Tobacco Use Smoking status: Every Day Current packs/day: 0.50 Average packs/day: 0.5 packs/day for 61.1 years (30.6 ttl pk-yrs) Types: Cigarettes Start date: 06/09/1964 Smokeless tobacco: Never Tobacco comments: varies day to day--now 0.5PPD or less, usually less Vaping Use Vaping status: Never Used Substance Use Topics Alcohol use: No Alcohol/week: 12.0 standard drinks of alcohol Types: 12 Cans of Beer (12oz) per week Comment: Was discussed with Dr. Rob at pre-op eval 11/19/11 Drug use: No Past medical history, appointments, medications, allergies reviewed. Pertinent Lab/Diagnostic Studies are reviewed and discussed today Current Outpatient Medications: atorvastatin (LIPITOR) 40 mg tablet omeprazole (PRILOSEC) 40 mg capsule cyanocobalamin (VITAMIN B-12) 1,000 mcg tab ramipril (ALTACE) 10 mg capsule NIFEdipine ER (PROCARDIA XL) 60 mg 24 hr tablet OTC PRODUCT aspirin, enteric coated (ASPIRIN, ENTERIC COATED) 81 mg EC tablet Review of Systems CONSTITUTIONAL: No fevers, chills night sweats, unintended weight loss CARDIOVASCULAR: No chest pain, dyspnea, palpitations, orthopnea, PND, ankle edema. PULM: No dyspnea, unexplained cough. GI: No dysphagia/odynophagia, problematic reflux, constipation, diarrhea, changes in stool habits, hematochezia, melena. : No new urinary complaints, including dysuria, gross hematuria or pyuria. NEURO: No new balance problems, peripheral weakness/paresthesias or numbness of concern. Physical Exam BP 127/72 Pulse 67 Ht 169 cm (5' 6.54) Wt 63.8 kg (140 lb 9.6 oz) SpO2 100% BMI 22.33 kg/m General appearance: Well appearing, alert, in no acute distress, well nourished. Skin: Skin color, texture, turgor normal, no suspicious rashes or lesions Head: Normocephalic, no masses, lesions, tenderness or abnormalities Eyes: Anicteric sclera. Pupils are equally round and reactive to light. Extraocular movements are intact. Lungs:Normal breathing efforts, Lungs clear to auscultation. No wheezing, rhonchi, rales Heart: RRR without murmur, gallop, or rubs. Extremities: No deformities, edema, skin discoloration, clubbing or cyanosis. Good capillary refill. ASSESSMENT/PLAN: 1. Medicare annual wellness visit, subsequent - ICD9: V70.0, ICD10: Z00.00 (primary diagnosis) - Counseled on healthy diet and regular exercise 2. Anemia, unspecified type - ICD9: 285.9, ICD10: D64.9 - COMPLETE BLOOD COUNT AND DIFFERENTIAL - COMPREHENSIVE METABOLIC PANEL 3. Sore throat - ICD9: 462, ICD10: J02.9 - suspect strep 4. Dizziness - ICD9: 780.4, ICD10: R42 Discussed increasing water content 5. Hypertension, unspecified type - ICD9: 401.9, ICD10: I10 - Controlled - Recommend home blood pressure monitoring, to bring results to next visit - Encouraged sodium restriction, DASH or Mediterranean diet - Recommend regular aerobic exercise 6. Tobacco use disorder - ICD9: 305.1, ICD10: F17.200 - Cessation encouraged. - Physiologic and physical aspects of tobacco addiction as well as strategies for quitting were discussed. - Counseling was given focusing on the harmful effects of this addiction especially given the patient's medical condition(s) which will be worsened because of the chemicals in tobacco. Sera Castillo MD Voice recognition software was used to compose this office note. Please excuse any unintended typographical errors. documented in this encounterMer[facility] NoteHNO ID: [id number] Author: MYA CHAVEZ MA Service: ? Author Type: Comb Tender Type: Progress Notes Filed: 07/06/2024 13:54 Note Text: POPULATION HEALTH NAVIGATION OUTREACH Action/FYI Contacted patient to schedule HCC care gaps and health maintenance. 1st attempt: Left message with my direct number 2nd attempt: My Chart message sent Topic Due (Y or N) Comments PCP Follow up Y Colorectal Cancer Screening N A1C N HTN/Controlling BP N Flu Y HCC Y Reason for Outreach Care Gap/HCC or Scheduling Wellness Visits Care Gaps due: Follow-up Appointment Flu Vaccine Patient Contacted: Unable or unnecessary to reach patient: Left message CareCloudhart message sent HCC related Navigation Signature: Mya Chavez MA July 06, 2024 1:[facility] History of Present illness Narrative* Mya Chavez MA - 07/06/2024 1:53 PM EST POPULATION HEALTH NAVIGATION OUTREACH Action/FYI Contacted patient to schedule HCC care gaps and health maintenance. 1st attempt: Left message with my direct number 2nd attempt: My Chart message sent Topic Due (Y or N) Comments PCP Follow up Y Colorectal Cancer Screening N A1C N HTN/Controlling BP N Flu Y HCC Y Reason for Outreach Care Gap/HCC or Scheduling Wellness Visits Care Gaps due: Follow-up Appointment Flu Vaccine Patient Contacted: Unable or unnecessary to reach patient: Left message MyChart message sent HCC related Navigation Signature: Mya Chavez MA July 06, 2024 1:54 PM documented in this encounterMer[facility] NotePatient Outreach (NETNAV) LEO ANGELO ([id number]) 1945 M Date Time Provider Department 07/06/24 MYA CHAVEZ During your visit today, we recorded the following information about you: Mya Chavez MA 07/06/2024 1:54 PM Signed POPULATION HEALTH NAVIGATION OUTREACH Action/FYI Contacted patient to schedule HCC care gaps and health maintenance. 1st attempt: Left message with my direct number 2nd attempt: My Chart message sent Topic Due (Y or N) Comments PCP Follow up Y Colorectal Cancer Screening N A1C N HTN/Controlling BP N Flu Y HCC Y Reason for Outreach Care Gap/HCC or Scheduling Wellness Visits Care Gaps due: Follow-up Appointment Flu Vaccine Patient Contacted: Unable or unnecessary to reach patient: Left message Segmintt message sent HCC related Navigation Signature: Mya Chavez MA July 06, 2024 1:54 PM Allergies As of Date: 07/06/2024 Noted Allergy Reaction SEASONAL ALLERGIES 11/30/2008 Date Reviewed: 02/18/2024 Reviewed by: Marti Lin MA - Fully Assessed Reason for Visit: Population Health Navigation Outreach [3910] Cmt: Rosario/Workbench/ACO Prescriptions as of 07/06/2024 - atorvastatin (LIPITOR) 40 mg tablet Take 1 tablet by mouth once daily. - omeprazole (PRILOSEC) 40 mg capsule Take 1 capsule by mouth once daily. - cyanocobalamin (VITAMIN B-12) 1,000 mcg tab Take 1,000 mcg by mouth once daily. - ramipril (ALTACE) 10 mg capsule Take 1 capsule by mouth once daily. - NIFEdipine ER (PROCARDIA XL) 60 mg 24 hr tablet Take 1 tablet by mouth once daily. - OTC PRODUCT Prevagen daily - aspirin, enteric coated (ASPIRIN, ENTERIC COATED) 81 mg EC tablet Take 1 tablet by mouth once daily. Meds Comments as of 06/24/2014: Pt. States he doesn't have med list and is unsure of meds because his prepares them for him. Problem List As Of Date 07/06/2024 Noted Resolved LUMBAGO [M54.50] 08/14/2007 Tobacco use disorder [F17.200] 08/14/2007 DISEASES OF NAIL NEC [L60.8] 09/29/2007 SEBORRHEIC KERATOSIS NOS [L82.1] 09/29/2007 Other Psoriasis [L40.8] 09/29/2007 07/21/2009 SOLAR LENGINES///DYSCHROMIA OTHER [L81.9] 09/29/2007 NEVUS ///BENIGN SALOME SKIN TRUNK [D23.5] 09/29/2007 ACTINIC DAMAGE//CHR SOLAR SKIN DAMAGE NOS [L57.*09/29/2007 DERMATOPHYTOSIS OF NAIL [B35.1] 09/29/2007 Unspecified Asthma [J45.909] 01/26/2009 Seborrheic Dermatitis: Central face [L21.9] 07/21/2009 07/21/2009 Melanocytic Nevus of Face [D22.30] 07/21/2009 Melanocytic Nevus of Trunk [D22.5] 07/21/2009 Solar Lentigo [L81.4] 07/21/2009 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] 07/21/2009 Actinic Damage///Sun-Damaged Skin [L57.8] 07/21/2009 Seborrheic Dermatitis: Central Face [L21.8] 07/21/2009 Other Psoriasis: Sebopsoriasis Central face [L4*07/21/2009 Hip arthritis [M16.10] 09/02/2011 Hypertension [I10] 02/21/2012 Elevated LFTs [R79.89] 02/28/2012 Anxiety [F41.9] 02/28/2012 Alcohol dependence (HCC) [F10.20] 02/28/2012 09/08/2018 Chronic bronchitis (HCC) [J42] 09/08/2018 Hyponatremia [E87.1] 08/24/2013 Vitamin D deficiency [E55.9] 08/24/2013 Aneurysm of ascending aorta (HCC) [I71.21] 01/07/2014 Dysthymia [F34.1] 09/29/2014 Prothrombin gene mutation (HCC) [D68.52] 08/20/2018 Pulmonary embolus (HCC) [I26.99] 08/20/2018 AAA (abdominal aortic aneurysm) without rupture*01/08/2022 Moderate episode of recurrent major depressive *06/10/2023 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] 08/14/2023 Encounter Status:Closed by [facility]A [facility] on [facility]/06/24[facility] Telephone encounter Note* Telephone Encounter - Vika Forbes RN - 05/07/2024 2:06 PM EST The patient has been identified by name and date of : Yes Caregiver verified no other encounters exist for this prescription request: Yes Caregiver confirmed with patient/requestor that no other refills are due, in the near future, with this provider at this time: Yes The last office visit in the department: 09/10/2023 Does the patient have a future office visit with this provider/department: No Requested Prescriptions Pending Prescriptions Disp Refills atorvastatin (LIPITOR) 40 mg tablet 90 tablet 3 Sig: Take 1 tablet by mouth once daily. Vika Forbes RN May 07, 2024 2:[address] [facility]11-29-2024 Miscellaneous Notes* Telephone Encounter - Vika Forbes RN - 05/07/2024 2:06 PM EST The patient has been identified by name and date of : Yes Caregiver verified no other encounters exist for this prescription request: Yes Caregiver confirmed with patient/requestor that no other refills are due, in the near future, with this provider at this time: Yes The last office visit in the department: 09/10/2023 Does the patient have a future office visit with this provider/department: No Requested Prescriptions Pending Prescriptions Disp Refills atorvastatin (LIPITOR) 40 mg tablet 90 tablet 3 Sig: Take 1 tablet by mouth once daily. Vika Forbes RN May 07, 2024 2:06 PM documented in this encounterMer[facility]09-[facility] Telephone encounter Note * Telephone Encounter - Ángel Morris RN - 02/24/2024 11:16 AM EDT 12 month follow up from 02/18/24. Patient needs appointment with Dr. Nelson, CTA Chest GATED and Echo. Recall in [facility]. Ángel Morris RN [facility]09-17-2024 Miscellaneous Notes* Telephone Encounter - Ángel Morris RN - 02/24/2024 11:16 AM EDT 12 month follow up from 02/18/24. Patient needs appointment with Dr. Nelson, CTA Chest GATED and Echo. Recall in Epic. Ángel Morris RN documented in this encounterMer[facility]09-11-2024 History of Present illness Narrative* Enzo Nelson MD - 02/18/2024 1:30 PM EDT FOLLOW-UP Aortic Aneurysm Patient Type: Established PCP: [place] [address] Other Physician: Ashleigh Candelario [address] [facility] [address] Patient Mr. Angelo returns, now 12+ months following the last assessment of his ascending Aortic Aneurysm. The patient is asymptomatic. The CT scan was reviewed and reveals a maximum aortic diameter of 52 mm in the area of Ascending. There is no change. The Echocardiogram from 06/12/22 reveals normal ventricular function and well functioning valves. Impression: The patient is doing well after the last visit. Plan: He will return to see me in 12 months The following studies will be necessary: - CT gated thoracic aorta with contrast Enzo Nelson MD documented in this encounterMer[facility]09-11-2024 NoteHNO ID: [id number] Author: ENZO NELSON MD Service: ? Author Type: Physician Type: Progress Notes Filed: 02/18/2024 14:43 Note Text: FOLLOW-UP Aortic Aneurysm Patient Type: Established PCP: Sera Castillo [address] [place] [address] Other Physician: Ashleigh Candelario [address] [facility] [address] Patient Mr. Angelo returns, now 12+ months following the last assessment of his ascending Aortic Aneurysm. The patient is asymptomatic. The CT scan was reviewed and reveals a maximum aortic diameter of 52 mm in the area of Ascending. There is no change. The Echocardiogram from 06/12/22 reveals normal ventricular function and well functioning valves. Impression: The patient is doing well after the last visit. Plan: He will return to see me in 12 months The following studies will be necessary: - CT gated thoracic aorta with contrast Enzo Nelson, [facility]09-11-2024 NoteHNO ID: [id number] Author: ASHLEIGH CANDELARIO MD Service: ? Author Type: Physician Type: Progress Notes Filed: 02/18/2024 14:40 Note Text: [facility] [place] DEPARTMENT OF VASCULAR SURGERY OUTPATIENT VISIT DATE February 18, 2024 OUTPATIENT VISIT TYPE ESTABLISHED SERVICE DATE: 02/18/2024 SERVICE TIME: 12:53 PM PRIMARY CARE PHYSICIAN: Sera Castillo MD HISTORY OF PRESENT ILLNESS: Mr. Angelo is a 79 year old male who presents today for a vascular surgery follow-up visit AAA. Last seen in 08/2023. Mr. Angelo is a 78 year old male w/ PMHx of HTN, AAA, ascending AA (51mm 12/2022), PE and tobacco smoking (half a pack /day). He presents today for a vascular surgery follow-up visit for AAA. Patient has been doing well. He denies abdominal, chest or back pain. Peripheral pulses are palpable b/l. DUS today did not show any significant change in his infrarenal AAA (4.91 vs 4.86 in 08/2023 vs. 4.6 in 08/2022). PAST MEDICAL HISTORY 02/12/2023: AAA (abdominal aortic aneurysm) (HCC) Comment: 4.8cm No date: Bladder mass Comment: for cysto No date: Chest pain No date: Chronic bronchitis (HCC) No date: Constipation 08/14/2007: Degeneration of lumbar or lumbosacral intervertebral disc Comment: Chronic off and on, Has been to No date: Diverticulosis of colon (without mention of hemorrhage) No date: GERD (gastroesophageal reflux disease) No date: Internal hemorrhoids without mention of complication No date: Other psoriasis Comment: left forearm; started out with abrasion and has never resolved (1999) No date: Sciatica Comment: Right No date: Thoracic aortic aneurysm without rupture ([facility]) Comment: 4.8cm as of 10/03/17 08/14/2007: Tobacco use disorder Comment: 10 cigg/day 01/26/2009: Unspecified Asthma PAST SURGICAL HISTORY 12/2011: ANESTHESIA OPEN TOTAL HIP ARTHROPLASTY Comment: Right hip 12/18: ARTHRP ACETBLR/PROX FEM PROSTC AGRFT/ALGRFT Comment: Dr Trujillo 04/16/12: COLONOSCOPY FLX DX W/COLLJ SPEC WHEN PFRMD Comment: Colonoscopy repeat 10 years No date: PAST SURGICAL HISTORY OF Comment: Removal of bursa sac of left elbow 05/20: PAST SURGICAL HISTORY OF Comment: Cataract surgery left As child: TONSILLECTOMY PRIMARY/SECONDARY Comment: Tonsillectomy SOCIAL HISTORY Social History Tobacco Use Smoking status: Every Day Current packs/day: 0.50 Average packs/day: 0.5 packs/day for 60.7 years (30.3 ttl pk-yrs) Types: Cigarettes Start date: [birth year]09/1964 Smokeless tobacco: Never Tobacco comments: varies day to day--now 0.5PPD or less, usually less Vaping Use Vaping status: Never Used Substance Use Topics Alcohol use: No Alcohol/week: 12.0 standard drinks of alcohol Types: 12 Cans of Beer (12oz) per week Comment: Was discussed with Dr. Rob at pre-op eval 11/19/11 Drug use: No MEDICATIONS: omeprazole (PRILOSEC) 40 mg capsule Take 1 capsule by mouth once daily. atorvastatin (LIPITOR) 40 mg tablet Take 1 tablet by mouth once daily. ramipril (ALTACE) 10 mg capsule Take 1 capsule by mouth once daily. NIFEdipine ER (PROCARDIA XL) 60 mg 24 hr tablet Take 1 tablet by mouth once daily. OTC PRODUCT Prevagen daily aspirin, enteric coated (ASPIRIN, ENTERIC COATED) 81 mg EC tablet Take 1 tablet by mouth once daily. cyanocobalamin (VITAMIN B-12) 1,000 mcg tab Take 1,000 mcg by mouth once daily. ALLERGIES: ALLERGIES Allergen Reactions Seasonal Allergies PHYSICAL EXAM: BP 109/61 Pulse 71 General: Alert and oriented x3 Integumentary: Normal color, no rash, no lesions. HEENT: No carotid bruits Cardiovascular: Normal S1 AND S2, no rubs, murmurs or gallops. No JVD., Pulse regular. Lungs: Wheezes Abdomen: Pulsatile Mass Extremities: No deformity, no edema or tenderness, no joint swelling or clubbing. Neurological: Normal cognition and motor skills. Vascular: Carotid Exam: no thrills no bruits Abdominal Exam: palpable pulsatile mass Carotid Pulse Right: Normal - Left: Normal Brachial Pulse Right: Normal - Left: Normal Radial Pulse Right: Normal - Left: Normal Femoral Pulse Right: Normal - Left: Normal Popliteal Pulse Right: Normal - Left: Normal Posterior Tibial Right: Normal - Left: Normal Dorsalis Pedal Right: Normal - Left: Normal Diagnostic tests reviewed for today's visit: Most recent labs Most recent imaging IMPRESSION: Mr. Angelo is a 79 year old male with 4.91 infrarenal AAA on US today. Asymptomatic. Continues to smoke. Counseled on smoking cessation. PLAN and RECOMMENDATIONS: - 1 y f/u with us Mikey Alexander PGY-1 Vascular Surgery On-Call pager: [phone] 02/18/2024 [facility] STAFF PHYSICIAN NOTE OF PERSONAL INVOLVEMENT IN CARE Patient is seen in consultation at the request of the above noted physician. Based on my evaluation he does not require intervention for aaa. PLAN DISCUSSED WITH: pt See problem list I have reviewed the documentation obtained and documented by the (more content not included)...[facility]09-11-2024 History of Present illness Narrative* Ashleigh Candelario MD - 02/18/2024 12:53 PM EDT Images from the original note were not included. [facility] [place] DEPARTMENT OF VASCULAR SURGERY OUTPATIENT VISIT DATE February 18, 2024 OUTPATIENT VISIT TYPE ESTABLISHED SERVICE DATE: 02/18/2024 SERVICE TIME: 12:53 PM PRIMARY CARE PHYSICIAN: Sera Castillo MD HISTORY OF PRESENT ILLNESS: Mr. Angelo is a 79 year old male who presents today for a vascular surgery follow-up visit AAA. Last seen in 08/2023. Mr. Angelo is a 78 year old male w/ PMHx of HTN, AAA, ascending AA (51mm 12/2022), PE and tobacco smoking (half a pack /day). He presents today for a vascular surgery follow-up visit for AAA. Patient has been doing well. He denies abdominal, chest or back pain. Peripheral pulses are palpable b/l. DUS today did not show any significant change in his infrarenal AAA (4.91 vs 4.86 in 08/2023 vs. 4.6 in08/2022). PAST MEDICAL HISTORY 02/12/2023: AAA (abdominal aortic aneurysm) (HCC) Comment: 4.8cm No date: Bladder mass Comment: for cysto No date: Chest pain No date: Chronic bronchitis (HCC) No date: Constipation 08/14/2007: Degeneration of lumbar or lumbosacral intervertebral disc Comment: Chronic off and on, Has been to No date: Diverticulosis of colon (without mention of hemorrhage) No date: GERD (gastroesophageal reflux disease) No date: Internal hemorrhoids without mention of complication No date: Other psoriasis Comment: left forearm; started out with abrasion and has never resolved (1999) No date: Sciatica Comment: Right No date: Thoracic aortic aneurysm without rupture (HCC) Comment: 4.8cm as of 10/03/17 08/14/2007: Tobacco use disorder Comment: 10 cigg/day 01/26/2009: Unspecified Asthma PAST SURGICAL HISTORY 12/2011: ANESTHESIA OPEN TOTAL HIP ARTHROPLASTY Comment: Right hip 12/18: ARTHRP ACETBLR/PROX FEM PROSTC AGRFT/ALGRFT Comment: Dr Trujillo 04/16/12: COLONOSCOPY FLX DX W/COLLJ SPEC WHEN PFRMD Comment: Colonoscopy repeat 10 years No date: PAST SURGICAL HISTORY OF Comment: Removal of bursa sac of left elbow 05/20: PAST SURGICAL HISTORY OF Comment: Cataract surgery left As child: TONSILLECTOMY PRIMARY/SECONDARY <AGE 11 Comment: Tonsillectomy SOCIAL HISTORY Social History Tobacco Use Smoking status: Every Day Current packs/day: 0.50 Average packs/day: 0.5 packs/day for 60.7 years (30.3 ttl pk-yrs) Types: Cigarettes Start date: [birth year]09/1964 Smokeless tobacco: Never Tobacco comments: varies day to day--now 0.5PPD or less, usually less Vaping Use Vaping status: Never Used Substance Use Topics Alcohol use: No Alcohol/week: 12.0 standard drinks of alcohol Types: 12 Cans of Beer (12oz) per week Comment: Was discussed with Dr. Rob at pre-op eval 11/19/11 Drug use: No MEDICATIONS: omeprazole (PRILOSEC) 40 mg capsule Take 1 capsule by mouth once daily. atorvastatin (LIPITOR) 40 mg tablet Take 1 tablet by mouth once daily. ramipril (ALTACE) 10 mg capsule Take 1 capsule by mouth once daily. NIFEdipine ER (PROCARDIA XL) 60 mg 24 hr tablet Take 1 tablet by mouth once daily. OTC PRODUCT Prevagen daily aspirin, enteric coated (ASPIRIN, ENTERIC COATED) 81 mg EC tablet Take 1 tablet by mouth once daily. cyanocobalamin (VITAMIN B-12) 1,000 mcg tab Take 1,000 mcg by mouth once daily. ALLERGIES: ALLERGIES Allergen Reactions Seasonal Allergies PHYSICAL EXAM: BP 109/61 Pulse 71 General: Alert and oriented x3 Integumentary: Normal color, no rash, no lesions. HEENT: No carotid bruits Cardiovascular: Normal S1 & S2, no rubs, murmurs or gallops. No JVD., Pulse regular. Lungs: Wheezes Abdomen: Pulsatile Mass Extremities: No deformity, no edema or tenderness, no joint swelling or clubbing. Neurological: Normal cognition and motor skills. Vascular: Carotid Exam: no thrills no bruits Abdominal Exam: palpable pulsatile mass Carotid Pulse Right: Normal - Left: Normal Brachial Pulse Right: Normal - Left: Normal Radial Pulse Right: Normal - Left: Normal Femoral Pulse Right: Normal - Left: Normal Popliteal Pulse Right: Normal - Left: Normal Posterior Tibial Right: Normal - Left: Normal Dorsalis Pedal Right: Normal - Left: Normal Diagnostic tests reviewed for today's visit: Most recent labs Most recent imaging IMPRESSION: Mr. Angelo is a 79 year old male with 4.91 infrarenal AAA on US today. Asymptomatic. Continues to smoke. Counseled on smoking cessation. PLAN and RECOMMENDATIONS: - 1 y f/u with us Mikey Alexander PGY-1 Vascular Surgery On-Call pager: [phone] 02/18/2024 [facility] STAFF PHYSICIAN NOTE OF PERSONAL INVOLVEMENT IN CARE Patient is seen in consultation at the request of the above noted physician. Based on my evaluationhe does not require intervention for aaa. PLAN DISCUSSED WITH: pt See problem list I have reviewed the documentation obtained and documented by the Resident and I have personally performed a face to face assessment of the patient and have personally participated in the nayak components of the visit which includes medical decision making. and have reviewed and updated the problem list as appropriate. I have personally performed a face to face assessment of the patient and have personally participated in the nayak components. I have discussed the case and management of the patient's care. STAFF PHYSICIAN: Ashleigh Candelario MD DATE of SERVICE: 02/18/2024 TIME of SERVICE: 1:22 PM documented in this encounter[facility] History of Present illness Narrative* Carroll Christensen RT(R) - 02/18/2024 12:00 PM EDT Radiology Service Progress Note PATIENT NAME: Leo Angelo DATE OF SERVICE: February 18, 2024 TIME: 12:19 PM PATIENT IDENTITY VERIFICATION COMPLETED USING TWO (2) IDENTIFIERS: Name and Date of confirmedby patient verbally and Name and Date of confirmed by identification band. FALL SCREENING: Has the patient had 2 falls in the last year or 1 fall with injury or currently using an Ambulatory Assistive Device (Walker, Cane, Wheelchair, Crutches, etc.)? No PATIENT GENDER DATA: Male PATIENT RELEVANT IMPLANT DATA REVIEWED: Yes PATIENT PRESENTS WITH AN IMPLANTABLE OR ATTACHED OIL CHANGE TECHNICIAN: No RADIOLOGY DEPARTMENT: CT; Exam(s) Completed: Cardiac PERIPHERAL IV DATA: Site assessment: Clean,Dry and Intact, Site disposition Discontinued SIGNED BY: RT Luther(R) February 18, 2024 12:19 PM * Michelle Dee RN - 02/18/2024 11:48 AM EDT Radiology Service Progress Note DATE OF SERVICE: February 18, 2024 TIME: 11:48 AM PATIENT WEIGHT: 140LBS PATIENT IDENTITY VERIFICATION COMPLETED USING TWO (2) STANDARD IDENTIFIERS: Name and Date of confirmed by patient verbally and Name and Date of confirmed by identification band. FALL SCREENING: Has the patient had 2 falls in the last year or 1 fall with injury or currently using an Ambulatory Assistive Device (Walker, Cane, Wheelchair, Crutches, etc.)? No PATIENT GENDER DATA: Male ALLERGIES: Reviewed and unchanged CONTRAST ALLERGY: No EXAM: CT -CONTRAST INDUCED NEPHROPATHY RISK FACTORS: Patient age > 60 years CREATININE: Creatinine Date Value Ref Range Status 09/10/2023 0.82 0.73 - 1.22 mg/dL Final 02/24/2023 0.90 0.73 - 1.22 mg/dL Final Creatinine (POCT) Date Value Ref Range Status 12/13/2022 1.00 0.7 - 1.4 mg/dL Final Estimated Glomerular Filtration Rate Date Value Ref Range Status 09/10/2023 89 >=60 mL/min/1.73m Final Comment: Estimated Glomerular Filtration Rate (eGFR) is calculated using the 2020 CKD-EPI creatinine equation. This equation utilizes serum creatinine, sex, and age as parameters. The creatinine assay has traceable calibration to isotope dilution- mass spectrometry. Refer to KDIGO guidelines for clinical interpretation. In patients with unstable renal function, e.g. those with acute kidney injury, the eGFRmay not accurately reflect actual GFR. eGFR- Date Value Ref Range Status 06/27/2020 >60 Final P.O.C.T. RESULTS: POC done: Yes, See Lab Tab February 18, 2024 - gfr 90 TREATMENT: No Hydration needed. IV SITE: Ambulatory: A peripheral IV was started in the Left antecubital site with a Angio cath: 20gauge. IV SITE APPEARANCE: Clean,Dry and Intact SIGNATURE: Michelle Dee RN PATIENT NAME: Leo Angelo DATE: February 18, 2024 TIME: 11:48 AM documented in this encounterAngela Ville [address]-11-2024 NoteHNO ID: [id number] Author: CARROLL CHRISTENSEN RT(R) Service: Radiology Author Type: Technologist Type: Progress Notes Filed: 02/18/2024 12:23 Note Text: Radiology Service Progress Note PATIENT NAME: Leo Angelo DATE OF SERVICE: February 18, 2024 TIME: 12:19 PM PATIENT IDENTITY VERIFICATION COMPLETED USING TWO (2) IDENTIFIERS: Name and Date of confirmed by patient verbally and Name and Date of confirmed by identification band. FALL SCREENING: Has the patient had 2 falls in the last year or 1 fall with injury or currently using an Ambulatory Assistive Device (Walker, Cane, Wheelchair, Crutches, etc.)? No PATIENT GENDER DATA: Male PATIENT RELEVANT IMPLANT DATA REVIEWED: Yes PATIENT PRESENTS WITH AN IMPLANTABLE OR ATTACHED OIL CHANGE TECHNICIAN: No RADIOLOGY DEPARTMENT: CT; Exam(s) Completed: Cardiac PERIPHERAL IV DATA: Site assessment: Clean,Dry and Intact, Site disposition Discontinued SIGNED BY: RT Luther(R) February 18, 2024 12:19 [facility]09-11-2024 NoteHNO ID: [id number] Author: MICHELLE DEE RN Service: Nursing Author Type: Registered Nurse Type: Progress Notes Filed: 02/18/2024 12:02 Note Text: Radiology Service Progress Note DATE OF SERVICE: February 18, 2024 TIME: 11:48 AM PATIENT WEIGHT: 140LBS PATIENT IDENTITY VERIFICATION COMPLETED USING TWO (2) STANDARD IDENTIFIERS: Name and Date of confirmed by patient verbally and Name and Date of confirmed by identification band. FALL SCREENING: Has the patient had 2 falls in the last year or 1 fall with injury or currently using an Ambulatory Assistive Device (Walker, Cane, Wheelchair, Crutches, etc.)? No PATIENT GENDER DATA: Male ALLERGIES: Reviewed and unchanged CONTRAST ALLERGY: No EXAM: CT -CONTRAST INDUCED NEPHROPATHY RISK FACTORS: Patient age > 60 years CREATININE: Creatinine Date Value Ref Range Status 09/10/2023 0.82 0.73 - 1.22 mg/dL Final 02/24/2023 0.90 0.73 - 1.22 mg/dL Final Creatinine (POCT) Date Value Ref Range Status 12/13/2022 1.00 0.7 - 1.4 mg/dL Final Estimated Glomerular Filtration Rate Date Value Ref Range Status 09/10/2023 89 >=60 mL/min/1.73m? Final Comment: Estimated Glomerular Filtration Rate (eGFR) is calculated using the 2020 CKD-EPI creatinine equation. This equation utilizes serum creatinine, sex, and age as parameters. The creatinine assay has traceable calibration to isotope dilution-mass spectrometry. Refer to KDIGO guidelines for clinical interpretation. In patients with unstable renal function, e.g. those with acute kidney injury, the eGFR may not accurately reflect actual GFR. eGFR- Date Value Ref Range Status 06/27/2020 >60 Final P.O.C.T. RESULTS: POC done: Yes, See Lab Tab February 18, 2024 - gfr 90 TREATMENT: No Hydration needed. IV SITE: Ambulatory: A peripheral IV was started in the Left antecubital site with a Angio cath: 20 gauge. IV SITE APPEARANCE: Clean,Dry and Intact SIGNATURE: Michelle Dee RN PATIENT NAME: Leo Angelo DATE: February 18, 2024 TIME: 11:48 [facility] [place]06-20-2024 Telephone encounter Note* Telephone Encounter - Sukhjinder Murphy RN - 11/27/2023 2:36 PM EDT The patient has been identified by name and date of : Yes Caregiver verified no other encounters exist for this prescription request: Yes Caregiver confirmed with patient/requestor that no other refills are due, in the near future, with this provider at this time: Yes The last office visit in the department: 09/10/2023 Does the patient have a future office visit with this provider/department: Yes 03/12/2024 Requested Prescriptions Pending Prescriptions Disp Refills omeprazole (PRILOSEC) 40 mg capsule 90 capsule 3 Sig: Take 1 capsule by mouth once daily. Sukhjinder Murphy RN November 27, 2023 2:[address] [facility]06-20-2024 Miscellaneous Notes* Telephone Encounter - Sukhjinder Murphy RN - 11/27/2023 2:36 PM EDT The patient has been identified by name and date of : Yes Caregiver verified no other encounters exist for this prescription request: Yes Caregiver confirmed with patient/requestor that no other refills are due, in the near future, with this provider at this time: Yes The last office visit in the department: 09/10/2023 Does the patient have a future office visit with this provider/department: Yes 03/12/2024 Requested Prescriptions Pending Prescriptions Disp Refills omeprazole (PRILOSEC) 40 mg capsule 90 capsule 3 Sig: Take 1 capsule by mouth once daily. Sukhjinder Murphy RN November 27, 2023 2:37 PM documented in this encounterMer[facility] Telephone encounter Note * Telephone Encounter - Katie Prieto MA - 11/17/2023 8:56 AM EDT Pharmacy request denied. Patient needs to contact office for refills. Katie Prieto MA [facility]06-10-2024 Miscellaneous Notes* Telephone Encounter - Katie Prieto MA - 11/17/2023 8:56 AM EDT Pharmacy request denied. Patient needs to contact office for refills. Katie Prieto MA documented in this encounterMercy [facility]04[facility] History of Present illness Narrative* Delia Martinez APRN.COMMERCIAL FOOD INSTRUCTOR - 09/10/2023 9:56 AM EDT SUBJECTIVE Leo Angelo is a 78 year old male here today for a check up on his medical problems. Chief Complaint Patient presents with: F/U 6 months HPI Leo Angelo is a 78 year old male. He is an established patient of Sera Castillo MD. Here today for routine follow up. Accompanied by his daughter. Since last visit [facility], ascending AA. Mood doing pretty well. Overall feeling good, able to be more active outside since the weather is improving. Recently saw the insole cementer. Foot doctor noticed plantar fascitis. Appetite some less. Sleeping okay. His medications were reviewed today and his list is now up to date. Medications Current Outpatient Medications Medication Sig cyanocobalamin (VITAMIN B-12) 1,000 mcg tab Take 1,000 mcg by mouth once daily. atorvastatin (LIPITOR) 40 mg tablet Take 1 tablet by mouth once daily. ramipril (ALTACE) 10 mg capsule Take 1 capsule by mouth once daily. NIFEdipine ER (PROCARDIA XL) 60 mg 24 hr tablet Take 1 tablet by mouth once daily. omeprazole (PRILOSEC) 40 mg capsule Take 1 capsule by mouth once daily. OTC PRODUCT Prevagen daily aspirin, enteric coated (ASPIRIN, ENTERIC COATED) 81 mg EC tablet Take 1 tablet by mouth once daily. No current facility-administered medications for this visit. ALLERGIES Allergen Reactions Seasonal Allergies ACTIVE PROBLEM LIST Thrombus of Aorta ([facility]) - 08/14/2023 Moderate Episode of Recurrent Major Depressive Disorder ([facility]) - 06/10/2023 Aaa (Abdominal Aortic Aneurysm) Without Rupture ([facility]) - 01/08/2022 Prothrombin Gene Mutation ([facility]) - 08/20/2018 Pulmonary Embolus ([facility]) - 08/20/2018 Comment: Dr Prajapati noted there was no particular concerns as he Carefully reviewed CT images personally and cannot appreciate area of concern. Never had pe or dvt Dysthymia - 09/29/2014 Aneurysm of Ascending Aorta (Hcc) - 01/07/2014 Hyponatremia - 08/24/2013 Vitamin D Deficiency - 08/24/2013 Elevated Lfts - 02/28/2012 Anxiety - 02/28/2012 Hypertension - 02/21/2012 Hip Arthritis - 09/02/2011 Melanocytic Nevus of Face - 07/21/2009 Melanocytic Nevus of Trunk - 07/21/2009 Solar Lentigo - 07/21/2009 Carey Angioma//Capillary Angioma - 07/21/2009 Actinic Damage///Sun-Damaged Skin - 07/21/2009 Seborrheic Dermatitis: Central Face - 07/21/2009 Other Psoriasis: Sebopsoriasis Central face - 07/21/2009 Unspecified Asthma(493.90) - 01/26/2009 Other Specified Disease of Nail - 09/29/2007 Other Seborrheic Keratosis - 09/29/2007 SOLAR LENGINES///DYSCHROMIA OTHER - 09/29/2007 NEVUS ///BENIGN SALOME SKIN TRUNK - 09/29/2007 ACTINIC DAMAGE//CHR SOLAR SKIN DAMAGE NOS - 09/29/2007 Dermatophytosis of Nail - 09/29/2007 Lumbago - 08/14/2007 Comment: Chronic off and on, Has been to Tobacco Use Disorder - 08/14/2007 Social History Tobacco Use Smoking status: Every Day Packs/day: 0.50 Years: 58.00 Additional pack years: 0.00 Total pack years: 29.00 Types: Cigarettes Start date: 06/09/1964 Smokeless tobacco: Never Tobacco comments: varies day to day--now 0.5PPD or less, usually less Vaping Use Vaping Use: Never used Substance Use Topics Alcohol use: No Alcohol/week: 12.0 standard drinks of alcohol Types: 12 Cans of Beer (12oz) per week Comment: Was discussed with Dr. Rob at pre-op eval 11/19/11 Drug use: No Review of Systems Constitutional: Negative. Respiratory: Negative. Cardiovascular: Negative. OBJECTIVE BP 120/70 Pulse 76 Temp (Src) 97 (Left Tympanic) Resp 20 Wt 134 lb (60.8kg) Physical Exam Vitals and nursing note reviewed. Constitutional: General: He is awake. He is not in acute distress. Appearance: Normal appearance. He is well-developed and well-groomed. He is not ill-appearing, toxic-appearing or diaphoretic. HENT: Head: Normocephalic. Right Ear: External ear normal. Left Ear: External ear normal. Nose: Nose normal. Eyes: General: Vision grossly intact. Conjunctiva/sclera: Conjunctivae normal. Pupils: Pupils are equal, round, and reactive to light. Neck: Vascular: No JVD. Trachea: Trachea normal. Cardiovascular: Rate and Rhythm: Normal rate and regular rhythm. Pulses: Normal pulses. Heart sounds: Normal heart sounds. No murmur heard. Pulmonary: Effort: Pulmonary effort is normal. No accessory muscle usage, prolonged expiration or respiratory distress. Breath sounds: Normal breath sounds. Musculoskeletal: Cervical back: Neck supple. Skin: General: Skin is warm and dry. Capillary Refill: Capillary refill takes less than 2 seconds. Neurological: General: No focal deficit present. Mental Status: He is alert and oriented to person, place, and time. Mental status is at baseline. Psychiatric: Attention and Perception: Attention and perception normal. Mood and Affect: Mood and affect normal. Speech: Speech normal. Behavior: Behavior normal. Behavior is cooperative. Thought Content: Thought content normal. Cognition and Memory: Cognition and memory normal. Judgment: Judgment normal. ASSESSMENT/PLAN: 1. Recurrent major depressive disorder, in partial remission (HCC) - ICD9: 296.35, ICD10: F33.41 (primary diagnosis) Stable, did not start the Celexa 2. Essential (primary) hypertension - ICD9: 401.9, ICD10: I10 - Controlled - Continue current medications - Recommend home blood pressure monitoring, to bring results to next visit - Encouraged sodium restriction, DASH or Mediterranean diet - Recommend regular aerobic exercise 3. Abdominal aortic aneurysm (AAA) without rupture, unspecified part (HCC) - ICD9: 441.4, ICD10: I71.40 Stable, follows with vascular. 4. Low iron stores - ICD9: 790.6, ICD10: R79.0 - CBC + DIFF - IRON + TIBC - FERRITIN BLD - VITAMIN B12 BLOOD 5. Encounter for therapeutic drug monitoring - ICD9: V58.83, ICD10: Z51.81 - CBC + DIFF - COMP METABOLIC PANEL 6. Screening for lipid disorders - ICD9: V77.91, ICD10: Z13.220 - LIPID PANEL BASIC Portions of this note have been entered by ancillary staff. I have reviewed and when necessary edited, so that they are an adequate record of my encounter with this patient Please note that parts of this document were created using voice recognition software and therefore may contain grammatical errors. Patient verbalizes understanding of instructions from today's visit and in agreement with treatmentplan. Questions answered. Agrees to call the office if questions, concerns of issues with acute symptoms not improving or if they worsen. See diagnoses and orders for additional plan(s). Allergies and medications were reviewed, list was updated, and refills given if needed. Past medical, surgical, social, and family history reviewed and updated as appropriate. Encouraged proper diet & exercise as well as compliance with taking medications. Age- appropriate health preventative measures were discussed. Return in about 6 months (around 03/11/2024) for Follow up on chronic conditions and medications.. GERA Flores documented in this encounterMer[facility]03[facility] History of Present illness Narrative* Lisbeth Langford MD - 08/13/2023 12:38 PM EST Images from the original note were not included. [facility] V[facility] [place] DEPARTMENT OF VASCULAR SURGERY OUTPATIENT VISIT DATE August 13, 2023 OUTPATIENT VISIT TYPE ESTABLISHED SERVICE DATE: 08/13/2023 SERVICE TIME: 12:38 PM PRIMARY CARE PHYSICIAN: Sera Castillo MD HISTORY OF PRESENT ILLNESS: Mr. Angelo is a 78 year old male w/ PMHx of HTN, AAA, ascending AA (51mm 12/2022), PE and tobacco smoking (half a pack /day). He presents today for a vascular surgery follow-up visit for AAA. He is feeling well and has no complaints today. He is continuing to smoke. Active in his yard and garden and denies chest pain, shortness of breath, dizziness, or abdominal pain at rest or with activity. He was started on Celexa for anxiety/depression. PAST MEDICAL HISTORY Diagnosis Date AAA (abdominal aortic aneurysm) (HCC) 02/12/2023 4.8cm Bladder mass for cysto Chest pain Chronic bronchitis (HCC) Constipation Degeneration of lumbar or lumbosacral intervertebral disc 08/14/2007 Chronic off and on, Has been to Diverticulosis of colon (without mention of hemorrhage) GERD (gastroesophageal reflux disease) Internal hemorrhoids without mention of complication Other psoriasis left forearm; started out with abrasion and has never resolved (1999) Sciatica Right Thoracic aortic aneurysm without rupture (HCC) 4.8cm as of 10/03/17 Tobacco use disorder 08/14/2007 10 cigg/day Unspecified Asthma 01/26/2009 PAST SURGICAL HISTORY Procedure Laterality Date ANESTHESIA OPEN TOTAL HIP ARTHROPLASTY 12/2011 Right hip ARTHRP ACETBLR/PROX FEM PROSTC AGRFT/ALGRFT 12/18 Dr Trujillo COLONOSCOPY FLX DX W/COLLJ SPEC WHEN PFRMD 04/16/12 Colonoscopy repeat 10 years PAST SURGICAL HISTORY OF Removal of bursa sac of left elbow PAST SURGICAL HISTORY OF 12/12 Cataract surgery left TONSILLECTOMY PRIMARY/SECONDARY <AGE 11 As child Tonsillectomy SOCIAL HISTORY Social History Tobacco Use Smoking status: Every Day Packs/day: 0.50 Years: 58.00 Additional pack years: 0.00 Total pack years: 29.00 Types: Cigarettes Start date: 06/09/1964 Smokeless tobacco: Never Tobacco comments: varies day to day--now 0.5PPD or less, usually less Vaping Use Vaping Use: Never used Substance Use Topics Alcohol use: No Alcohol/week: 12.0 standard drinks of alcohol Types: 12 Cans of Beer (12oz) per week Comment: Was discussed with Dr. Rob at pre-op eval 11/19/11 Drug use: No MEDICATIONS: atorvastatin (LIPITOR) 40 mg tablet Take 1 tablet by mouth once daily. ramipril (ALTACE) 10 mg capsule Take 1 capsule by mouth once daily. NIFEdipine ER (PROCARDIA XL) 60 mg 24 hr tablet Take 1 tablet by mouth once daily. omeprazole (PRILOSEC) 40 mg capsule Take 1 capsule by mouth once daily. OTC PRODUCT Prevagen daily aspirin, enteric coated (ASPIRIN, ENTERIC COATED) 81 mg EC tablet Take 1 tablet by mouth once daily. citalopram (CELEXA) 20 mg tablet Take 1 tablet by mouth once daily. (Patient not taking: Reported on 08/13/2023) ALLERGIES: ALLERGIES Allergen Reactions Seasonal Allergies PHYSICAL EXAM: BP 123/60 Pulse (!) 58 General: Alert and oriented, No acute distress Integumentary: Normal color, no rash, no lesions. HEENT: EOM, pupils equal, round and reactive. Cardiovascular: Normal S1 & S2, no rubs, murmurs or gallops. No JVD., Pulse regular. Lungs: No chest deformities or chest wall tenderness. Scattered bilateral wheezes Abdomen: Soft, non-tender, no rigidity., No masses or organomegaly. Extremities: No deformity, no edema or tenderness, no joint swelling or clubbing. Neurological: Normal cognition and motor skills. Gait normal. No weakness or sensory deficit. Vascular: Carotid Pulse Right: Normal - Left: Normal Radial Pulse Right: Normal - Left: Normal Posterior Tibial Right: Normal - Left: Normal Diagnostic tests reviewed for today's visit: Most recent labs Most recent imaging US Abdominal Aorta 08/13/2023 (Preliminary Read) Compared to prior study of 02/12/2023, no significant change in abdominal aortic aneurysm at mid 4.8 x 4.90 cm. AORTA Suprarenal abdominal aortic aneurysm measuring 3.09 x 3.02 cm at proximal. Aorta plaque notedwithout evidence of hemodynamically significant stenosis at level of the renals. Infrarenal abdominal aortic aneurysm measuring 4.8 x 4.90 cm at mid. Mural thrombus noted. Aorta plaque noted without evidence of hemodynamically significant stenosis at distal. RIGHT VESSELS Common iliac artery patent without evidence of aneurysm throughout. Internal iliac artery not visualized . LEFT VESSELS Common iliac artery appears ectatic measuring 1.63 x 1.37 cm at mid. Internal iliac artery patent without evidence of aneurysm at proximal. IMPRESSION: Mr. Angelo is a 78 year old male w/ PMHx of HTN, AAA, ascending AA (51mm 12/2022), PE and tobacco smoking (half a pack/day). He presents today for a vascular surgery follow-up visit for AAA. DUS todayis without significant change in his infrarenal AAA (4.8 x 4.9 vs 4.86 x 4.96 02/12/2023). He is doing well without any complaints. PLAN and RECOMMENDATIONS: - Follow up in 6 months with repeat AAA DUS - Recommend smoking cessation - Continue ASA and statin Lisbeth Langford MD General Surgery PGY-1 [facility] STAFF PHYSICIAN NOTE OF PERSONAL INVOLVEMENT IN CARE Patient is seen in consultation at the request of the above noted physician. Based on my evaluationhe does not require intervention for aaa. PLAN DISCUSSED WITH: pt See problem list I have reviewed the documentation obtained and documented by the Resident and I have personally performed a face to face assessment of the patient and have personally participated in the nayak components of the visit which includes medical decision making. and have reviewed and updated the problem list as appropriate. I have personally performed a face to face assessment of the patient and have personally participated in the nayak components. I have discussed the case and management of the patient's care. STAFF PHYSICIAN: Ashleigh Candelario MD DATE of SERVICE: 08/14/2023 TIME of SERVICE: 5:59 PM documented in this encounterMer[facility]02[facility]24 Miscellaneous Notes* Telephone Encounter - Delia Partida LPN - 07/23/2023 1:52 PM EST notified with message below. Delia Partida LPN * Telephone Encounter - Torri James LPN - 07/22/2023 8:52 AM EST Left message to return call and speak with nurse. * Telephone Encounter - Delia Martinez APRN.GARFIELD - 07/21/2023 3:53 PM EST Ok to switch the Zoloft to Celexa since he previously took this. Can start by taking a half tab x1 week. * Telephone Encounter - Tg Cortes LPN - 07/21/2023 3:03 PM EST Patient Gricelda calling started Sertraline 50 mg one half tablet 07/07/2023 and began full50 mg tablet on 07/14/2023. Since then has been having anxiety problems. Asking if needs to change to another medication? Patient uses [facility] for his pharmacy. Please advise documented in this encounterMercy Health [facility]. [facility]09-29-[facility]23 History of Present illness Narrative* Mari Mcclelland APRN.GARFIELD - 03/07/2023 9:58 AM EDT CC: Patient presents with: Recheck: 6 month follow up HPI Leo Angelo is a 78 year old male who presents today for routine follow up. History of stable aortic mid-ascending and abdominal aortic aneurysm. Is monitored every [facility]. Smokes less than a pack a day and not interested in quitting at this time. HTN and HLD: Mr. Angelo indicates that he is feeling well and denies any symptoms referable to elevated blood pressure. Specifically denies headache, chest pain, palpitations, dyspnea, and peripheraledema. Patient denies any side effects of his medication(s) and is compliant with their regimen. Hedoes not check BP's generally. Leo stays active with yard and house work. He watches his diet for sodium, low fat and low cholesterol generally not very much. Last 3 Encounter BP Readings: Date: BP: 03/07/2023 112/68 02/12/2023 111/63 12/13/2022 126/67 BPH: Had concern for bladder cancer many years ago which was found to be negative. Denies LUTS at this time but wants PSA done to check his prostate and urine to evaluate for any hidden blood in urine. GERD: Controlled with current treatment. Denies heartburn, abdominal pain, or difficulty swallowing. Anemia noted on recent blood work: Denies dark sticky stools, abnormal bleeding, or blood in stools. Is on a daily aspirin REVIEW OF SYSTEMS General: no fevers, no chills, no night sweats, no recurrent infections, no change in appetite, no change in energy, and no significant changes in weight Respiratory: no cough, no wheezing, no shortness of breath, no hemoptysis Cardiovascular: no chest pain, no chest pressure, no palpitations, and no swelling GI: No nausea, vomiting, or diarrhea Endocrine: no fatigue, no weight gain, no weight loss, no polyuria, no polyphagia, and no polydipsia Neurologic: No headache, weakness, numbness, tingling, dizziness, memory loss, syncope. PAST MEDICAL HISTORY Diagnosis Date AAA (abdominal aortic aneurysm) (HCC) 02/12/2023 4.8cm Bladder mass for cysto Chest pain Chronic bronchitis ([facility]) Constipation Degeneration of lumbar or lumbosacral intervertebral disc 08/14/2007 Chronic off and on, Has been to Diverticulosis of colon (without mention of hemorrhage) GERD (gastroesophageal reflux disease) Internal hemorrhoids without mention of complication Other psoriasis left forearm; started out with abrasion and has never resolved (1999) Sciatica Right Thoracic aortic aneurysm without rupture ([facility]) 4.8cm as of 10/03/17 Tobacco use disorder 08/14/2007 10 cigg/day Unspecified Asthma 01/26/2009 PAST SURGICAL HISTORY Procedure Laterality Date ANESTHESIA OPEN TOTAL HIP ARTHROPLASTY 12/2011 Right hip ARTHRP ACETBLR/PROX FEM PROSTC AGRFT/ALGRFT 12/18 Dr Trujillo COLONOSCOPY FLX DX W/COLLJ SPEC WHEN PFRMD 04/16/12 Colonoscopy repeat 10 years PAST SURGICAL HISTORY OF Removal of bursa sac of left elbow PAST SURGICAL HISTORY OF 05/20 Cataract surgery left TONSILLECTOMY PRIMARY/SECONDARY <AGE 11 As child Tonsillectomy ALLERGIES Seasonal Allergies MEDICATIONS omeprazole (PRILOSEC) 40 mg capsule^Take 1 capsule by mouth once daily.^Disp: 90 capsule^Rfl: 3 OTC PRODUCT^Prevagen daily^Disp: ^Rfl: aspirin, enteric coated (ASPIRIN, ENTERIC COATED) 81 mg EC tablet^Take 1 tablet by mouth once daily.^Disp: ^Rfl: NIFEdipine ER (PROCARDIA XL) 60 mg 24 hr tablet^Take 1 tablet by mouth once daily.^Disp: 30 tablet^Rfl: 5 ramipril (ALTACE) 10 mg capsule^Take 1 capsule by mouth once daily.^Disp: 90 capsule^Rfl: 3 atorvastatin (LIPITOR) 40 mg tablet^Take 1 tablet by mouth once daily.^Disp: 90 tablet^Rfl: 3 fluticasone furoate (ARNUITY ELLIPTA) 100 mcg/actuation inhaler^Inhale 2 Puffs as instructed once daily. Inhale one puff once daily. DO NOT CLICK OPEN UNTIL READY FOR DOSE^Disp: 1 Each^Rfl: 5 (Patient not taking: Reported on 02/12/2023) FAMILY HISTORY Problem Relation Age of Onset other (alzheimers) Mother COPD Father None Sister Aneurysm No Family History Social History Tobacco Use Smoking status: Every Day Packs/day: 0.50 Years: 58.00 Additional pack years: 0.00 Total pack years: 29.00 Types: Cigarettes Start date: [birth year]09/1964 Smokeless tobacco: Never Tobacco comments: varies day to day--now 0.5PPD or less, usually less Vaping Use Vaping Use: Never used Substance Use Topics Alcohol use: No Alcohol/week: 30.0 standard drinks of alcohol Types: 12 Cans of Beer (12oz) per week Comment: Was discussed with Dr. Rob at pre-op eval 11/19/11 Drug use: No PHYSICAL EXAM BP 112/68 Pulse 60 Resp 16 Wt 62.1 kg (137 lb) BMI 21.78 kg/m General Appearance: well appearing, in no acute distress, alert Pysch: mood and affect broad and appropriate Skin: Skin color, texture, turgor normal for age; Eyes: conjunctiva pink and moist, no icterus, sclera white, non-injected Lungs: Lungs clear to auscultation. No wheezing, rhonchi, rales. Heart: RRR without murmur, gallop, or rubs. No ectopy Abdomen: Abdomen soft, non-tender. Bowel sounds normal. No masses, organomegaly Health maintenance reviewed with patient: Pneumococcal Vaccine: 65+(2 - PCV) due on 04/22/2013 Shingrix Vaccine(3 of 3) due on 04/25/2020 Covid-19 Vaccine(4 - Pfizer series) due on 05/23/2021 Advance Directive Discussion Never done Influenza Vaccine(1) due on 12/07/2023 Annual PCP Team Chronic Disease Visit due on 09/05/2023 BP Controlled (<130/80) due on 02/13/2024 DTaP,Tdap,Td Vaccine(3 - Td or Tdap) due on 11/27/2025 Diabetes Screening due on 02/24/2026 Spirometry Completed Colorectal Cancer Screening Discontinued DATA REVIEWED: Most recent labs ASSESSMENT/PLAN: 1. Essential (primary) hypertension - ICD9: 401.9, ICD10: I10 (primary diagnosis) - Controlled - Continue current medications - Recommend home blood pressure monitoring, to bring results to next visit - Encouraged sodium restriction, DASH or Mediterranean diet - Recommend regular aerobic exercise - RAMIPRIL 10 MG CAPSULE 2. Atherosclerosis of aorta (HCC) - ICD9: 440.0, ICD10: I70.0 - stable at this time. Encouraged smoking cessation but patient declines at this time - continue with cardiac surgeons and recommendations by them. - LIPID PANEL BASIC - HEPATIC FUNCTION PNL 3. Abdominal aortic aneurysm (AAA) without rupture, unspecified part (HCC) - ICD9: 441.4, ICD10: I71.40 As above 4. Benign prostatic hyperplasia without lower urinary tract symptoms - ICD9: 600.00, ICD10: N40.0 - controlled with current treatment but will check urine - URINALYSIS WITH MICROSCOPIC, REFLEX CULTURE 5. Prostate cancer screening - ICD9: V76.44, ICD10: Z12.5 - PSA/PROSTSPECAG SCRN 6. Anemia, unspecified type - ICD9: 285.9, ICD10: D64.9 - unsure on cause or if stable. Will recheck. Also checking urine as well. - CBC + DIFF - IRON + TIBC - FERRITIN BLD - VITAMIN B12 BLOOD 7. Elevated glucose - ICD9: 790.29, ICD10: R73.09 - HGB A1C - URINALYSIS WITH MICROSCOPIC, REFLEX CULTURE 8. Medication management - ICD9: V58.69, ICD10: Z79.899 - HEPATIC FUNCTION PNL Prescription instructions reviewed with patient as applicable. Potential red flag symptoms discussed with the patient. Reviewed appropriate action plan to take if red flag symptoms occur. Patient agreeable to treatment plan. Mari Mcclelland APRN.GARFIELD documented in this encounterMercy Health [facility]. [facility]09-[facility]-2023 History of Present illness Narrative* Ashleigh Candelario MD - 02/12/2023 11:49 AM EDT Images from the original note were not included. Heart , V[facility] Thor[facility] [place] DEPARTMENT OF VASCULAR SURGERY OUTPATIENT VISIT DATE February 12, 2023 OUTPATIENT VISIT TYPE ESTABLISHED SERVICE DATE: 02/12/2023 SERVICE TIME: 12:01 PM PRIMARY CARE PHYSICIAN: Sera Castillo MD HISTORY OF PRESENT ILLNESS: Mr. Angelo is a 78 year old male w/ PMHx of HTN, AAA, ascending AA (51mm 12/2022), PE and tobacco smoking (half a pack /day). He presents today for a vascular surgery follow-up visit for AAA. Patient has been doing well. He denies abdominal, chest or back pain. Peripheralpulses are palpable b/l. DUS today did not show any significant change in his infrarenal AAA (4.86 vs. 4.6 (08/2022)). PAST MEDICAL HISTORY Diagnosis Date AAA (abdominal aortic aneurysm) (HCC) 02/12/2023 4.8cm Bladder mass for cysto Chest pain Chronic bronchitis (HCC) Constipation Degeneration of lumbar or lumbosacral intervertebral disc 08/14/2007 Chronic off and on, Has been to Diverticulosis of colon (without mention of hemorrhage) GERD (gastroesophageal reflux disease) Internal hemorrhoids without mention of complication Other psoriasis left forearm; started out with abrasion and has never resolved (1999) Sciatica Right Thoracic aortic aneurysm without rupture (HCC) 4.8cm as of 10/03/17 Tobacco use disorder 08/14/2007 10 cigg/day Unspecified Asthma 01/26/2009 PAST SURGICAL HISTORY Procedure Laterality Date ANESTHESIA OPEN TOTAL HIP ARTHROPLASTY 12/2011 Right hip ARTHRP ACETBLR/PROX FEM PROSTC AGRFT/ALGRFT 12/18 Dr Trujillo COLONOSCOPY FLX DX W/COLLJ SPEC WHEN PFRMD 04/16/12 Colonoscopy repeat 10 years PAST SURGICAL HISTORY OF Removal of bursa sac of left elbow PAST SURGICAL HISTORY OF 05/20 Cataract surgery left TONSILLECTOMY PRIMARY/SECONDARY <AGE 11 As child Tonsillectomy SOCIAL HISTORY Social History Tobacco Use Smoking status: Every Day Packs/day: 0.50 Years: 58.00 Additional pack years: 0.00 Total pack years: 29.00 Types: Cigarettes Start date: 06/09/1964 Smokeless tobacco: Never Tobacco comments: varies day to day--now 0.5PPD or less, usually less Vaping Use Vaping Use: Never used Substance Use Topics Alcohol use: No Alcohol/week: 30.0 standard drinks of alcohol Types: 12 Cans of Beer (12oz) per week Comment: Was discussed with Dr. Rob at pre-op eval 11/19/11 Drug use: No MEDICATIONS: omeprazole (PRILOSEC) 40 mg capsule^Take 1 capsule by mouth once daily.^Disp: 90 capsule^Rfl: 3 OTC PRODUCT^Prevagen daily^Disp: ^Rfl: aspirin, enteric coated (ASPIRIN, ENTERIC COATED) 81 mg EC tablet^Take 1 tablet by mouth once daily.^Disp: ^Rfl: NIFEdipine ER (PROCARDIA XL) 60 mg 24 hr tablet^Take 1 tablet by mouth once daily.^Disp: 30 tablet^Rfl: 5 ramipril (ALTACE) 10 mg capsule^Take 1 capsule by mouth once daily.^Disp: 90 capsule^Rfl: 3 atorvastatin (LIPITOR) 40 mg tablet^Take 1 tablet by mouth once daily.^Disp: 90 tablet^Rfl: 3 fluticasone furoate (ARNUITY ELLIPTA) 100 mcg/actuation inhaler^Inhale 2 Puffs as instructed once daily. Inhale one puff once daily. DO NOT CLICK OPEN UNTIL READY FOR DOSE^Disp: 1 Each^Rfl: 5 (Patient not taking: Reported on 02/12/2023) ALLERGIES: ALLERGIES Allergen Reactions Seasonal Allergies PHYSICAL EXAM: BP 111/63 Pulse (!) 53 General: Alert and oriented, No acute distress Integumentary: Normal color, no rash, no lesions. HEENT: EOM, pupils equal, round and reactive. Cardiovascular: Normal S1 & S2, no rubs, murmurs or gallops. No JVD., Pulse regular. Lungs: Normal breath sounds, no wheezes or crackles. Abdomen: Soft, non-tender, no rigidity. Extremities: No deformity, no edema or tenderness, no joint swelling or clubbing. Neurological: Normal cognition and motor skills. Vascular: Carotid Pulse Right: Normal - Left: Normal Radial Pulse Right: Normal - Left: Normal Posterior Tibial Right: Normal - Left: Normal Dorsalis Pedal Right: Normal - Left: Normal Diagnostic tests reviewed for today's visit: 02/12/2023 DUS AORTA Suprarenal abdominal aortic aneurysm measuring 3.09 x 3.06 cm at proximal. Aorta plaque noted without evidence of hemodynamically significant stenosis at level of the renals. Infrarenal abdominal aortic aneurysm measuring 4.86 x 4.96 cm at mid. Aorta plaque noted without evidence of hemodynamically significant stenosis at distal. RIGHT VESSELS Common iliac artery plaque noted without evidence of hemodynamically significant stenosis throughout. Common iliac artery patent without evidence of aneurysm throughout. Internal iliac artery not visualized. LEFT VESSELS Common iliac artery plaque noted without evidence of hemodynamically significant stenosis throughout. Common iliac artery appears ectatic measuring 1.57 x 1.46 cm at mid. Common iliac artery appears ectatic measuring 1.51 x 1.49 cm at distal. Internal iliac artery not visualized. Technologist: Cordelia Izquierdo RVT Ordering physician: ASHLEIGH CANDELARIO Interpreting physician: Zechariah Cancino DO, RVT, VI IMPRESSION: A 78M w PMHx of HTN, AAA, ascending AA (51mm 12/2022), PE and tobacco smoking. He presents for AAA follow-up. Patient has been doing well without any complaints. DUS today did show stable infrarenal AAA (4.86 vs. 4.6cm (08/2022)). PLAN and RECOMMENDATIONS: - F/u visit with AAA DUS in 6 months - Recommend smoking cessation - Cont ASA and statin SIGNATURE: Ashleigh Candelario MD PATIENT NAME: Leo Angelo DATE: February 12, 2023 TIME: 12:01 PM [facility] STAFF PHYSICIAN NOTE OF PERSONAL INVOLVEMENT IN CARE Patient is seen in consultation at the request of the above noted physician. Based on my evaluationhe does not require intervention for small aaa. PLAN DISCUSSED WITH: pt See problem list I have reviewed the documentation obtained and documented by the Resident and I have personally performed a face to face assessment of the patient and have personally participated in the nayak components of the visit which includes medical decision making. and have reviewed and updated the problem list as appropriate. I have personally performed a face to face assessment of the patient and have personally participated in the nayak components. I have discussed the case and management of the patient's care. STAFF PHYSICIAN: Ashleigh Candelario MD DATE of SERVICE: 02/12/2023 TIME of SERVICE: 12:54 PM documented in this encounter[facility] History of Present illness Narrative* Enoz Nelson MD - 12/13/2022 12:30 PM EDT FOLLOW-UP Aortic Aneurysm Patient Type: Established PCP: [place] [address] Patient Mr. Angelo returns, now 6 months following the last assessment of his ascending Aortic Aneurysm. The patient is asymptomatic. The CT scanwas reviewed and reveals a maximum aortic diameter of 51 mm in the area of Ascending. There is no change. Impression: The patient is doing well after the last visit. Plan: He will return to see me in 12 months The following studies will be necessary: - CT gated thoracic aorta with contrast Enzo Nelson MD documented in this encounterMer[facility] History of Present illness Narrative* Parisa Prabhakar RN - 12/13/2022 11:53 AM EDT Radiology Service Progress Note DATE OF SERVICE: December 13, 2022 TIME: 11:53 AM PATIENT WEIGHT: 133 LBS PATIENT IDENTITY VERIFICATION COMPLETED USING TWO (2) STANDARD IDENTIFIERS: Name and Date of confirmed by patient verbally and Name and Date of confirmed by identification band. FALL SCREENING: Has the patient had 2 falls in the last year or 1 fall with injury or currently using an Ambulatory Assistive Device (Walker, Cane, Wheelchair, Crutches, etc.)? No PATIENT GENDER DATA: Male ALLERGIES: Reviewed and unchanged CONTRAST ALLERGY: No EXAM: CT -CONTRAST INDUCED NEPHROPATHY RISK FACTORS: Patient age > 60 years CREATININE: Creatinine Date Value Ref Range Status 01/08/2022 0.77 0.73 - 1.22 mg/dL Final 01/08/2022 0.74 0.73 - 1.22 mg/dL Final Creatinine (POCT) Date Value Ref Range Status 12/13/2022 1.00 0.7 - 1.4 mg/dL Final eGFR (POCT) Date Value Ref Range Status 12/13/2022 >60 mL/min/1.73 m2 Final eGFR- Date Value Ref Range Status 06/27/2020 >60 Final P.O.C.T. RESULTS: POC done: Yes, See Lab Tab December 13, 2022 TREATMENT: No Hydration needed. IV SITE: Ambulatory: A peripheral IV was started in the Right antecubital site with a Angio cath: 20 gauge. and A Saline lock was inserted per protocol IV SITE APPEARANCE: Clean,Dry and Intact SIGNATURE: Parisa Prabhakar RN PATIENT NAME: Leo Angelo DATE: December 13, 2022 TIME: 11:53 AM * RT Carole(R) - 12/13/2022 11:30 AM EDT Radiology Service Progress Note PATIENT NAME: Leo Angelo DATE OF SERVICE: December 13, 2022 TIME: 12:08 PM PATIENT IDENTITY VERIFICATION COMPLETED USING TWO (2) IDENTIFIERS: Name and Date of confirmedby patient verbally and Name and Date of confirmed by identification band. FALL SCREENING: Has the patient had 2 falls in the last year or 1 fall with injury or currently using an Ambulatory Assistive Device (Walker, Cane, Wheelchair, Crutches, etc.)? No PATIENT GENDER DATA: Male PATIENT RELEVANT IMPLANT DATA REVIEWED: Yes RADIOLOGY DEPARTMENT: CT; Exam(s) Completed: Cardiac PERIPHERAL IV DATA: Site assessment: Clean,Dry and Intact, Site disposition Discontinued SIGNED BY: RT Carole(R) December 13, 2022 12:08 PM documented in this encounterMer[facility]05-[facility] History of Present illness Narrative* Segundo Dong MD - 10/15/2022 12:00 PM EDT Images from the original note were not included. [facility] CONSULT NOTE Leo Angelo [id number] Requesting Provider: Sera Castillo MD Cardiothoracic Physician: Segundo Dong MD Admit Date: (Not on file) LOS : 0 Chief Complaint: Left scapular mass Impression: Leo Angelo is a 77 YOM w/ COPD, ascending thoracic and abdominal aortic aneurysms, CAD w/o stentor CABG, and soft tissue mass associated with L scapula. Given chronicity (10 years) without substantial growth concern for malignancy is low at this point. However, the mass is causing the patient symptoms as he moves his arm, and he and his daughter would like to know what this is. Plan: - Outpatient MRI to better characterize mass - Virtual follow-up after patient undergos MRI HPI: Leo Angelo is 77 year old M with PMH ascending aortic aneurysm (5.2cm seeing Dr. Nelson), AAA (4.9cm seeing Dr. Candelario), GERD, COPD, and L scapular mass. The mass was first identified by him approximately 10 years ago. It is associated with positional discomfort. The mass is semi-mobile and moves with extension, abduction, and elevation of the LUE. He denies fevers, SOB, CORDOBA, weight loss, headaches, night sweats, new cough, and pleuritic pain. He endorses a ~60 pack year smoking history anddenies any history of cancer. Further denies any medical history of bleeding/clotting disorders, anticoagulation, or musculoskeletal disorder. As above, patient endorses history of CAD (reportedly told he had an 80% occlusion on coronary cath, but intervention was not pursued) and COPD (without need for O2 at home). He was joined by his daughter who provided collateral history. Location: left Severity: mild Timing: constant Context: at rest Unintentional weight loss over last 3 months: No Surgical history positive for: R hip replacement (10 years ago) L elbow bursectomy (6 years ago) PAST MEDICAL HISTORY: PAST MEDICAL HISTORY Diagnosis Date AAA (abdominal aortic aneurysm) (HCC) 4.3cm Bladder mass for cysto Chest pain Chronic bronchitis (HCC) Constipation Degeneration of lumbar or lumbosacral intervertebral disc 08/14/2007 Chronic off and on, Has been to Diverticulosis of colon (without mention of hemorrhage) GERD (gastroesophageal reflux disease) Internal hemorrhoids without mention of complication Other psoriasis left forearm; started out with abrasion and has never resolved (1999) Sciatica Right Thoracic aortic aneurysm without rupture (HCC) 4.8cm as of 10/03/17 Tobacco use disorder 08/14/2007 Quit smoking October Unspecified Asthma 01/26/2009 PAST SURGICAL HISTORY: PAST SURGICAL HISTORY Procedure Laterality Date ANESTHESIA OPEN TOTAL HIP ARTHROPLASTY 12/2011 Right hip ARTHRP ACETBLR/PROX FEM PROSTC AGRFT/ALGRFT 12/18 Dr Trujillo COLONOSCOPY FLX DX W/COLLJ SPEC WHEN PFRMD 04/16/12 Colonoscopy repeat 10 years PAST SURGICAL HISTORY OF Removal of bursa sac of left elbow PAST SURGICAL HISTORY OF 05/20 Cataract surgery left TONSILLECTOMY PRIMARY/SECONDARY <AGE 11 As child Tonsillectomy FAMILY HISTORY: FAMILY HISTORY Problem Relation Age of Onset other (alzheimers) Mother COPD Father None Sister Aneurysm No Family History SOCIAL HISTORY: Social History Tobacco Use Smoking status: Every Day Packs/day: 0.25 Years: 58.00 Pack years: 14.50 Types: Cigarettes Start date: 06/09/1963 Smokeless tobacco: Never Tobacco comments: varies day to day--now 0.5PPD or less, usually less Vaping Use Vaping Use: Never used Substance Use Topics Alcohol use: No Alcohol/week: 30.0 standard drinks Types: 12 Cans of Beer (12oz) per week Comment: Was discussed with Dr. Rob at pre-op eval 11/19/11 Drug use: No MEDICATIONS: Prior to Admission Medications: OTC PRODUCT^Prevagen daily^Disp: ^Rfl: aspirin, enteric coated (ASPIRIN, ENTERIC COATED) 81 mg EC tablet^Take 1 tablet by mouth once daily.^Disp: ^Rfl: omeprazole (PRILOSEC) 40 mg capsule^Take 1 capsule by mouth once daily.^Disp: 90 capsule^Rfl: 1 NIFEdipine ER (PROCARDIA XL) 60 mg 24 hr tablet^Take 1 tablet by mouth once daily.^Disp: 30 tablet^Rfl: 5 ramipril (ALTACE) 10 mg capsule^Take 1 capsule by mouth once daily.^Disp: 90 capsule^Rfl: 3 atorvastatin (LIPITOR) 40 mg tablet^Take 1 tablet by mouth once daily.^Disp: 90 tablet^Rfl: 3 fluticasone furoate (ARNUITY ELLIPTA) 100 mcg/actuation inhaler^Inhale 2 Puffs as instructed once daily. Inhale one puff once daily. DO NOT CLICK OPEN UNTIL READY FOR DOSE^Disp: 1 Each^Rfl: 5 (Patient not taking: Reported on 10/15/2022) ALLERGIES: ALLERGIES Allergen Reactions Seasonal Allergies Chemical Exposure: No Asbestos Exposure No COMPLETE REVIEW OF SYSTEMS Constitutional: No weight loss, malaise or fevers. HEENT: Negative for frequent or significant headaches, No changes in hearing or vision, no nose bleeds or other nasal problems Resp: Positive for COPD, wheezing; negative for SOB, CORDOBA, pleuritic pain. Cardiovascular: Negative for leg swelling or palpitations. Positive for some chest pressure with extensive use of L arm. Denies similar chest pressure with other exertion or activity. GI: Negative for abdominal discomfort, blood in stools or black stools or change in bowel habits : No history of dysuria, frequency, or incontinence Musculoskeletal: See HPI. Endo: Negative for cold or heat intolerance, polyuria, polydipsia and goiter Neurologic: No history or headaches, syncope, paralysis, seizures or tremors Integumentary: See HPI Pain: Negative for pain, history of chronic pain, or current treatment for a chronic pain condition Additional systems reviewed: No additional systems reviewed PHYSICAL EXAM BP 100/57 Pulse 67 Temp (Src) 98.2 (Oral) Ht 5' 6.5 (1.69m) Wt 133 lb (60.3kg) SpO2 98% BMI 21.15 kg/(m^2). Constitutional: Well developed, Thin, and No acute distress HEENT: PERRLA and Good dentition Resp: Clear, end expiratory wheezes, and Respiratory; purses lips on deep exhale. effort: normal Cardiovascular: Regular rate & rhythm GI: Soft, Non-tender, and Non-distended Integumentary: Warm and Dry Musculoskeletal: ~5 x 6 cm nodular semi-mobile nodular mass at inferior-lateral aspect of L scapula. Non-tender, non-erythematous, non-fluctuant. Neurological/Psychiatric: Oriented to time, place & person Additional systems reviewed: No additional systems reviewed DATA: Radiology: * * *Final Report* * * DATE OF EXAM: Sep 12 2022 11:20AM [facility] 1047 - US CHEST WALL/SOFT TISSUE / PROCEDURE REASON: Deformity of scapula * * * * Physician Interpretation * * * * Ultrasound of the LEFT chest wall HISTORY: palpable mass COMPARISON STUDY: CT 01/08/2022 FINDINGS: Inferior to the LEFT scapula deep to the superficial musculature is a heterogeneous density with approximate dimensions 7.5 x 2.3 x 8 cm. The inferior aspect is contiguous to the ribs. No internal blood flow on color Doppler images. 03/08/2022; CTA C/A/P: Without mention of L scapular mass; external report below; no images available for primary review: I have personally reviewed the following images/data: CT Chest. Outside Paper Medical Records Review personally performed by: N/a SIGNATURE: Segundo Dong MD DATE of SERVICE: 10/15/2022 TIME of SERVICE: 10:47 AM documented in this encounterMer[facility]04-[facility]-2023 History of Present illness Narrative* Sera Noland RDMS - 09/12/2022 10:45 AM EDT Radiology Service Progress Note PATIENT NAME: Leo Angelo DATE OF SERVICE: September 12, 2022 TIME: 11:13 AM PATIENT IDENTITY VERIFICATION COMPLETED USING TWO (2) IDENTIFIERS: Name and Date of confirmedby patient verbally. FALL SCREENING: Has the patient had 2 falls in the last year or 1 fall with injury or currently using an Ambulatory Assistive Device (Walker, Cane, Wheelchair, Crutches, etc.)? No PATIENT GENDER DATA: Male PATIENT RELEVANT IMPLANT DATA REVIEWED: Not Applicable RADIOLOGY DEPARTMENT: Ultrasound PERIPHERAL IV DATA: Not applicable SIGNED BY: Sera Noland RDMS September 12, 2022 11:13 AM documented in this encounterMer[facility]04-[facility] History of Present illness Narrative* Alessio Fields MD - 09/11/2022 8:03 AM EDT HISTORY AND PHYSICAL Leo Angelo 1945 REFERRING PHYSICIAN: Sera Castillo MD CHIEF COMPLAINT: Consult (Growth on left scapula) HPI: The patient is a 77 year old male with a complaint of a palpable mass below his left scapula. The patient has noticed this for approximately 10 years. 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 He notes that the area is growing now and it is approximately the size of a small lemon. In the past it was the size of a golf ball. He notes it more when he moves his arm up into the left. He has not had recent imaging. It has not been biopsied. The patient is CT scan of his chest on January 08, 2022. This site was not obviously mentioned in theCT scan report but in reviewing the intrathoracic musculature there does seem to be a asymmetry of the musculature that is intercostal below the tip of the left scapula. Since the patient's lie in his back is slightly less obvious than when he is upright. As this causes him discomfort he is wishing to find out if this could be removed. The patient is being seen by me today at the request of Dr. Sera Castillo MD for my opinion and advice regarding left posterior chest wall mass PAST MEDICAL HISTORY Diagnosis Date AAA (abdominal aortic aneurysm) (HCC) 4.3cm Bladder mass for cysto Chest pain Chronic bronchitis (HCC) Constipation Degeneration of lumbar or lumbosacral intervertebral disc 08/14/2007 Chronic off and on, Has been to Diverticulosis of colon (without mention of hemorrhage) GERD (gastroesophageal reflux disease) Internal hemorrhoids without mention of complication Other psoriasis left forearm; started out with abrasion and has never resolved (1999) Sciatica Right Thoracic aortic aneurysm without rupture (HCC) 4.8cm as of 10/03/17 Tobacco use disorder 08/14/2007 Quit smoking October Unspecified Asthma 01/26/2009 PAST SURGICAL HISTORY Procedure Laterality Date ANESTHESIA OPEN TOTAL HIP ARTHROPLASTY 12/2011 Right hip ARTHRP ACETBLR/PROX FEM PROSTC AGRFT/ALGRFT 12/18 Dr Trujillo COLONOSCOPY FLX DX W/COLLJ SPEC WHEN PFRMD 04/16/12 Colonoscopy repeat 10 years PAST SURGICAL HISTORY OF Removal of bursa sac of left elbow PAST SURGICAL HISTORY OF 05/20 Cataract surgery left TONSILLECTOMY PRIMARY/SECONDARY <AGE 11 As child Tonsillectomy Current Outpatient Medications Medication Sig OTC PRODUCT Prevagen daily aspirin, enteric coated (ASPIRIN, ENTERIC COATED) 81 mg EC tablet Take 1 tablet by mouth once daily. omeprazole (PRILOSEC) 40 mg capsule Take 1 capsule by mouth once daily. NIFEdipine ER (PROCARDIA XL) 60 mg 24 hr tablet Take 1 tablet by mouth once daily. ramipril (ALTACE) 10 mg capsule Take 1 capsule by mouth once daily. atorvastatin (LIPITOR) 40 mg tablet Take 1 tablet by mouth once daily. fluticasone furoate (ARNUITY ELLIPTA) 100 mcg/actuation inhaler Inhale 2 Puffs as instructed once daily. Inhale one puff once daily. DO NOT CLICK OPEN UNTIL READY FOR DOSE multivitamin tablet Take 1 tablet by mouth once daily. Current Facility-Administered Medications Medication Dose Route Frequency perflutren lipid microspheres 1.3 mL in NaCl (PF) 0.9% 10 mL injection (DEFINITY) INTRAVENOUS DIRECTED PRN sodium chloride 0.9 % (flush) 10 mL (BD POSIFLUSH) 10 mL INTRAVENOUS DIRECTED PRN ALLERGIES: Seasonal Allergies PERSONAL HISTORY: Social History Tobacco Use Smoking status: Every Day Packs/day: 0.25 Years: 58.00 Pack years: 14.50 Types: Cigarettes Start date: 06/09/1963 Smokeless tobacco: Never Tobacco comments: varies day to day--now 0.5PPD or less, usually less Vaping Use Vaping Use: Never used Substance Use Topics Alcohol use: No Alcohol/week: 30.0 standard drinks Types: 12 Cans of Beer (12oz) per week Comment: Was discussed with Dr. Rob at pre-op eval 11/19/11 Drug use: No FAMILY HISTORY: FAMILY HISTORY Problem Relation Age of Onset other (alzheimers) Mother COPD Father None Sister Aneurysm No Family History REVIEW OF SYMPTOMS: The review of systems data was entered by the nurse and reviewed by tn Nursing Notes: Sury Robles RN 09/10/2022 2:35 PM Signed REVIEW OF SYSTEMS: General: The patient denies fatigue, denies weight loss, denies weight gain, denies feeling hot, and denies feelings of cold. Eyes: The patient denies glaucoma, denies eye injury/surgery, does not wear glasses or contacts. Ear/Nose/Throat: The patient denies allergies, NOTES hayfever, denies ear infections, and denies bloody noses. Cardiovascular: The patient NOTES chest pain, denies heart disease, denies high blood pressure,denies cardiac stent, denies prior heart attack, denies irregular heart beat, denies high cholesterol, denies poor circulation, NOTES heart failure, other cardiac issues, denies claudication, denies cold feet, denies peripheral arterial stent. Respiratory: The patient denies tuberculosis, denies pneumonia, denies frequent cough, denies pulmonary embolism, denies shortness of breath, denies coughing up blood, NOTES COPD, NOTES asthma. Gastrointestinal: The patient denies difficulty swallowing, NOTES acid reflux, denies ulcers, denies vomiting, denies jaundice/hepatitis, denies gallbladder problems, denies black or tarry stools, NOTES hemorrhoids, denies bleeding from rectum, NOTES diverticulitis, denies constipation, denies diarrhea, denies loss of stool control, and denies hernias. Kidney/Bladder: The patient denies kidney stones, denies urine infections, and denies bloody urine. Skin: The patient denies a history of skin cancer, denies bleeding/changing moles, and denies a history of skin rash. Neurologic: The patient denies a history of epilepsy/convulsions, denies headaches, denies head/spinal injuries, and denies stroke/TIA. Psychiatric: The patient denies psychiatric medications, denies depression, and denies voices, denies substance abuse. Endocrine: The patient denies thyroid disorders, denies diabetes, and denies hormonal problems. Hematologic: The patient NOTES a history of bruising, denies bleeding, and denies anemia, denies blood clots. Infections: The patient denies a history of measles and mumps, denies rheumatic fever, and denies sexually transmitted diseases. Musculoskeletal: The patient NOTES back pain/injury, NOTES back problems, NOTES sciatica, denies knee/foot trouble, denies arthritis, or denies gout. When was patient's last Mammogram screening? N/A Last Colonoscopy: 2011 Sury Robles RN PHYSICAL EXAMINATION: General: The patient is 77 year old male, well nourished, well hydrated in no acute distress. The patient is oriented to time, place, and person. VITALS: Blood pressure 130/68, pulse 88, temperature 36.7 C (98.1 F), height 167.6 cm (5' 6), weight 62.4 kg (137 lb 9.6 oz), SpO2 98 %. HEENT: Normal cephalic, ataumatic, pupils are equally round, sclera are anicteric, mucous membranesare moist, oropharynx is clear. Neck has no masses, asymmetry or lymphadenopathy. Thyroid is unremarkable. Respiratory: Clear to auscultation and percussion. Normal respiratory excursion and pattern. Cardiac: Examination is regular rate and rhythm. Abdominal exam: exam deferred Rectal exam: exam deferred Extremities: no clubbing, cyanosis or edema. No adenopathy. Other: Left posterior chest wall below the level of the scapula-a palpable mass approximately 6 cm in circumference nontender nonmobile LABORATORY VALUES: As Noted RADIOLOGIC STUDIES: As Noted Intraoffice ultrasound demonstrated the mass which seems to encompass the entire intercostal musculature. It does not seem to be invading the ribs on ultrasound. It tracks down to the level of the pleural surface. It wraps over the ribs above and below the intercostal space. It does not seem to have the more linear arrangement that I would anticipate a fibroelastoma dorsi to have. Assessment IMPRESSION: Left posterior scapula intramuscular mass PLAN: I have ordered an official ultrasound to characterize the abnormality. I plan to contact thoracic surgery and/or orthopedic oncology for their opinion of who would be best to evaluate the site for possible excision. Diagnoses: (M95.8) Deformity of scapula My findings have been communicated to Dr. Sera Castillo MD via shared medical record. This note will be forwarded to Dr. Sera Castillo MD. Return to Clinic: The patient is instructed to follow-up with me as needed. Alessio Fields MD documented in this encounterMer[facility] Nurse Note* Sury Robles RN - 09/10/2022 2:32 PM EDT REVIEW OF SYSTEMS: General: The patient denies fatigue, denies weight loss, denies weight gain, denies feeling hot, and denies feelings of cold. Eyes: The patient denies glaucoma, denies eye injury/surgery, does not wear glasses or contacts. Ear/Nose/Throat: The patient denies allergies, NOTES hayfever, denies ear infections, and denies bloody noses. Cardiovascular: The patient NOTES chest pain, denies heart disease, denies high blood pressure,denies cardiac stent, denies prior heart attack, denies irregular heart beat, denies high cholesterol, denies poor circulation, NOTES heart failure, other cardiac issues, denies claudication, denies cold feet, denies peripheral arterial stent. Respiratory: The patient denies tuberculosis, denies pneumonia, denies frequent cough, denies pulmonary embolism, denies shortness of breath, denies coughing up blood, NOTES COPD, NOTES asthma. Gastrointestinal: The patient denies difficulty swallowing, NOTES acid reflux, denies ulcers, denies vomiting, denies jaundice/hepatitis, denies gallbladder problems, denies black or tarry stools, NOTES hemorrhoids, denies bleeding from rectum, NOTES diverticulitis, denies constipation, denies diarrhea, denies loss of stool control, and denies hernias. Kidney/Bladder: The patient denies kidney stones, denies urine infections, and denies bloody urine. Skin: The patient denies a history of skin cancer, denies bleeding/changing moles, and denies a history of skin rash. Neurologic: The patient denies a history of epilepsy/convulsions, denies headaches, denies head/spinal injuries, and denies stroke/TIA. Psychiatric: The patient denies psychiatric medications, denies depression, and denies voices, denies substance abuse. Endocrine: The patient denies thyroid disorders, denies diabetes, and denies hormonal problems. Hematologic: The patient NOTES a history of bruising, denies bleeding, and denies anemia, denies blood clots. Infections: The patient denies a history of measles and mumps, denies rheumatic fever, and denies sexually transmitted diseases. Musculoskeletal: The patient NOTES back pain/injury, NOTES back problems, NOTES sciatica, denies knee/foot trouble, denies arthritis, or denies gout. When was patient's last Mammogram screening? N/A Last Colonoscopy: 2011 Sury Robles RN documented in this encounterMer[facility]03-29-[facility] History of Present illness Narrative* Sera Castillo MD - 09/04/2022 10:45 AM EDT Reason for Visit Patient presents with: Same Day Appointment: growth on back x 10years Leo Angelo is a 77 year old male who presents here today for Above Complaints.. 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 Is right handed but uses hisleft hand a lot. There is some discomfort constantly and some pain gloria when he lifts or uses his left arm. Not taking his inhalers and he is breathing pretty well with out it. Still smokes half a pack a day Patient does not report having been on blood thinners for her embolism that is noted . No problem-specific Assessment & Plan notes found for this encounter. PAST MEDICAL HISTORY Diagnosis Date AAA (abdominal aortic aneurysm) (HCC) 4.3cm Bladder mass for cysto Chest pain Chronic bronchitis (HCC) Constipation Degeneration of lumbar or lumbosacral intervertebral disc 08/14/2007 Chronic off and on, Has been to Diverticulosis of colon (without mention of hemorrhage) GERD (gastroesophageal reflux disease) Internal hemorrhoids without mention of complication Other psoriasis left forearm; started out with abrasion and has never resolved (1999) Sciatica Right Thoracic aortic aneurysm without rupture (HCC) 4.8cm as of 10/03/17 Tobacco use disorder 08/14/2007 Quit smoking October Unspecified Asthma 01/26/2009 PAST SURGICAL HISTORY Procedure Laterality Date ANESTHESIA OPEN TOTAL HIP ARTHROPLASTY 12/2011 Right hip ARTHRP ACETBLR/PROX FEM PROSTC AGRFT/ALGRFT 12/18 Dr Trujillo COLONOSCOPY FLX DX W/COLLJ SPEC WHEN PFRMD 04/16/12 Colonoscopy repeat 10 years PAST SURGICAL HISTORY OF Removal of bursa sac of left elbow PAST SURGICAL HISTORY OF 05/20 Cataract surgery left TONSILLECTOMY PRIMARY/SECONDARY <AGE 11 As child Tonsillectomy FAMILY HISTORY Problem Relation Age of Onset other (alzheimers) Mother COPD Father None Sister Aneurysm No Family History Social History Tobacco Use Smoking status: Every Day Packs/day: 0.25 Years: 58.00 Pack years: 14.50 Types: Cigarettes Start date: 06/09/1963 Smokeless tobacco: Never Tobacco comments: varies day to day--now 0.5PPD or less, usually less Substance Use Topics Alcohol use: No Alcohol/week: 30.0 standard drinks Types: 12 Cans of Beer (12oz) per week Comment: Was discussed with Dr. Rob at pre-op eval 11/19/11 Drug use: No Past medical history, appointments, medications, allergies reviewed. Pertinent Lab/Diagnostic Studies are reviewed and discussed today Current Outpatient Medications: OTC PRODUCT aspirin, enteric coated (ASPIRIN, ENTERIC COATED) 81 mg EC tablet omeprazole (PRILOSEC) 40 mg capsule NIFEdipine ER (PROCARDIA XL) 60 mg 24 hr tablet ramipril (ALTACE) 10 mg capsule atorvastatin (LIPITOR) 40 mg tablet fluticasone furoate (ARNUITY ELLIPTA) 100 mcg/actuation inhaler tiotropium bromide (SPIRIVA RESPIMAT) 2.5 mcg/actuation inhaler multivitamin tablet Current Facility-Administered Medications: perflutren lipid microspheres 1.3 mL in NaCl (PF) 0.9% 10 mL injection (DEFINITY) sodium chloride 0.9 % (flush) 10 mL (BD POSIFLUSH) Review of Systems CONSTITUTIONAL: No fevers, chills night sweats, unintended weight loss CARDIOVASCULAR: No chest pain, dyspnea, palpitations, orthopnea, PND, ankle edema. PULM: No dyspnea, unexplained cough. GI: No dysphagia/odynophagia, problematic reflux, constipation, diarrhea, changes in stool habits, hematochezia, melena. : No new urinary complaints, including dysuria, gross hematuria or pyuria. NEURO: No new balance problems, peripheral weakness/paresthesias or numbness of concern. Physical Exam BP 124/70 (BP Site: Right Arm, BP Position: Sitting, BP Cuff Size: Regular Adult) Pulse 64 Temp36.7 C (98 F) Resp 12 Ht 168.9 cm (5' 6.5) Wt 61.2 kg (135 lb) SpO2 97% BMI 21.46 kg/m General appearance: Well appearing, alert, in no acute distress, well nourished. Skin: Skin color, texture, turgor normal, no suspicious rashes or lesions Head: Normocephalic, no masses, lesions, tenderness or abnormalities Eyes: Anicteric sclera. Pupils are equally round and reactive to light. Extraocular movements are intact. Lungs: Lungs clear to auscultation. No wheezing, rhonchi, rales Heart: RRR without murmur, gallop, or rubs. At the angle of the left scapula when he is rotating his shoulder and moving his arm towards the opposite side he has a a glf ball sized round circumscribed lesion that is fixed and smooth, feel hard ASSESSMENT/PLAN: 1. Deformity of scapula - ICD9: 736.89, ICD10: M95.8 (primary diagnosis) - CONSULT TO GENERAL SURGERY 2. Fibroma - ICD9: 215.9, ICD10: D21.9 Will likely need to be removed 3. Abdominal aortic aneurysm (AAA) without rupture, unspecified part (HCC) - ICD9: 441.4, ICD10: I71.40 Being follow up by glass engraver 4. Prothrombin gene mutation (HCC) - ICD9: 289.81, ICD10: D68.52 Dr Prajapati noted there was no particular concerns as he Carefully reviewed CT images personally and cannot appreciate area of concern. Never had pe or dvt Sera Castillo MD documented in this encounterMercy [facility]03-08-2023 History of Present illness Narrative* Ashleigh Candelario MD - 08/14/2022 12:06 PM EST Images from the original note were not included. [facility] , V[facility] [place] DEPARTMENT OF VASCULAR SURGERY OUTPATIENT VISIT DATE August 14, 2022 OUTPATIENT VISIT TYPE ESTABLISHED SERVICE DATE: 08/14/2022 SERVICE TIME: 12:13 PM PRIMARY CARE PHYSICIAN: Sera Castillo MD HISTORY OF PRESENT ILLNESS: Mr. Angelo is a 77 year old male who presents today for a vascular surgery follow-up visit for AAA. Patient reports overall he has been feeling well. Denies any abdominal,chest or back pain. No complaints today. Has been following with Dr. Nelson for ascending aneuryusm 5.2cm PAST MEDICAL HISTORY Diagnosis Date AAA (abdominal aortic aneurysm) (HCC) 4.3cm Bladder mass for cysto Chest pain Chronic bronchitis (HCC) Constipation Degeneration of lumbar or lumbosacral intervertebral disc 08/14/2007 Chronic off and on, Has been to Diverticulosis of colon (without mention of hemorrhage) GERD (gastroesophageal reflux disease) Internal hemorrhoids without mention of complication Other psoriasis left forearm; started out with abrasion and has never resolved (1999) Sciatica Right Thoracic aortic aneurysm without rupture (HCC) 4.8cm as of 10/03/17 Tobacco use disorder 08/14/2007 Quit smoking October Unspecified Asthma 01/26/2009 PAST SURGICAL HISTORY Procedure Laterality Date ANESTHESIA OPEN TOTAL HIP ARTHROPLASTY 12/2011 Right hip ARTHRP ACETBLR/PROX FEM PROSTC AGRFT/ALGRFT 12/18 Dr Trujillo COLONOSCOPY FLX DX W/COLLJ SPEC WHEN PFRMD 04/16/12 Colonoscopy repeat 10 years PAST SURGICAL HISTORY OF Removal of bursa sac of left elbow PAST SURGICAL HISTORY OF 05/20 Cataract surgery left TONSILLECTOMY PRIMARY/SECONDARY <AGE 11 As child Tonsillectomy SOCIAL HISTORY Social History Tobacco Use Smoking status: Every Day Packs/day: 0.25 Years: 58.00 Pack years: 14.50 Types: Cigarettes Start date: 06/09/1963 Smokeless tobacco: Never Tobacco comments: varies day to day--now 0.5PPD or less, usually less Substance Use Topics Alcohol use: No Alcohol/week: 30.0 standard drinks Types: 12 Cans of Beer (12oz) per week Comment: Was discussed with Dr. Rob at pre-op eval 11/19/11 Drug use: No MEDICATIONS: OTC PRODUCT^Prevagen daily^Disp: ^Rfl: aspirin, enteric coated (ASPIRIN, ENTERIC COATED) 81 mg EC tablet^Take 1 tablet by mouth once daily.^Disp: ^Rfl: omeprazole (PRILOSEC) 40 mg capsule^Take 1 capsule by mouth once daily.^Disp: 90 capsule^Rfl: 1 NIFEdipine ER (PROCARDIA XL) 60 mg 24 hr tablet^Take 1 tablet by mouth once daily.^Disp: 30 tablet^Rfl: 5 ramipril (ALTACE) 10 mg capsule^Take 1 capsule by mouth once daily.^Disp: 90 capsule^Rfl: 3 atorvastatin (LIPITOR) 40 mg tablet^Take 1 tablet by mouth once daily.^Disp: 90 tablet^Rfl: 3 fluticasone furoate (ARNUITY ELLIPTA) 100 mcg/actuation inhaler^Inhale 2 Puffs as instructed once daily. Inhale one puff once daily. DO NOT CLICK OPEN UNTIL READY FOR DOSE^Disp: 1 Each^Rfl: 5 (Patient not taking: No sig reported) tiotropium bromide (SPIRIVA RESPIMAT) 2.5 mcg/actuation inhaler^Inhale 2 Puffs as instructed once daily. Inhale two puffs once daily.^Disp: 1 Inhaler^Rfl: 0 (Patient not taking: No sig reported) multivitamin tablet^Take 1 tablet by mouth once daily.^Disp: ^Rfl: (Patient not taking: No sig reported) ALLERGIES: ALLERGIES Allergen Reactions Seasonal Allergies PHYSICAL EXAM: BP 117/67 Pulse 62 General: Alert and oriented Integumentary: Normal color, no rash, no lesions. HEENT: EOM, pupils equal, round and reactive. Cardiovascular: Normal S1 & S2, no rubs, murmurs or gallops. No JVD., Pulse regular. Lungs: Normal breath sounds, no wheezes or crackles. Abdomen: Soft, non-tender, no rigidity. Extremities: No deformity, no edema or tenderness, no joint swelling or clubbing. Neurological: Normal cognition and motor skills. Vascular: palpable fem/pop/DP/PT b/l Diagnostic tests reviewed for today's visit: 08/14/22 Aortic US FINDINGS -------- AORTA At renal: PSV: 57 cm/s. EDV: 0 cm/s. 2.43 cm x 2.42 cm Mid: PSV: 26 cm/s. EDV: 11 cm/s. 4.57 cm x 4.98 cm Distal: PSV: 52 cm/s. EDV: 0 cm/s. 1.80 cm x 1.86 cm Mural thrombus seen in the abdominal aorta at mid. RIGHT VESSELS Common iliac origin: PSV: 107 cm/s. EDV: 0 cm/s. 1.07 cm x 1.07 cm Common iliac proximal: PSV: 86 cm/s. EDV: 0 cm/s. 1.07 cm x 1.07 cm Common iliac mid: PSV: 103 cm/s. EDV: 0 cm/s. 1.01 cm x 1.02 cm Common iliac distal: PSV: 79 cm/s. EDV: 0 cm/s. 0.99 cm x 0.99 cm LEFT VESSELS Common iliac origin: PSV: 120 cm/s. EDV: 0 cm/s. 1.21 cm x 1.16 cm Common iliac proximal: PSV: 78 cm/s. EDV: 0 cm/s. 1.25 cm x 1.24 cm Common iliac mid: PSV: 110 cm/s. EDV: 0 cm/s. 1.27 cm x 1.20 cm Common iliac distal: PSV: 90 cm/s. EDV: 0 cm/s. 0.97 cm x 0.97 cm IMPRESSION AORTA Infrarenal abdominal aortic aneurysm measuring 4.6 x 5.0 cm at mid. RIGHT VESSELS Common iliac artery patent without evidence of aneurysm . Common iliac artery plaque noted without evidence of hemodynamically significant stenosis throughout. LEFT VESSELS Common iliac artery patent without evidence of aneurysm . Common iliac artery plaque noted without evidence of hemodynamically significant stenosis throughout. IMPRESSION: Mr. Angelo is a 77 year old male with stable infrarenal AAA 5.0cm. PLAN and RECOMMENDATIONS: -Follow up in 6 months with aorta US -Recommend smoking cessation -Continue ASA and statin Arelis Hylton MD Vascular Surgery Fellow PGY-7 SIGNATURE: Ashleigh Candelario MD PATIENT NAME: Leo Angelo DATE: August 14, 2022 TIME: 12:13 PM [facility] STAFF PHYSICIAN NOTE OF PERSONAL INVOLVEMENT IN CARE Patient is seen in consultation at the request of the above noted physician. Based on my evaluationhe does not require intervention for aaa at 5.2 cm. F/U 6 months. PLAN DISCUSSED WITH: pt See problem list I have reviewed the documentation obtained and documented by the Fellow and I have personally performed a face to face assessment of the patient and have personally participated in the nayak componentsof the visit which includes medical decision making. and have reviewed and updated the problem listas appropriate. I have personally performed a face to face assessment of the patient and have personally participated in the nayak components. I have discussed the case and management of the patient's care. STAFF PHYSICIAN: Ashleigh Candelario MD DATE of SERVICE: 08/14/2022 TIME of SERVICE: 3:22 PM documented in this encounterMercy Health St. [facility]01-04-2023 History of Present illness Narrative* Enzo Nelson MD - 06/12/2022 2:00 PM EST CHART COPY DO NOT DISCARD Patient Type: Consult Visit to determine Surgery: Yes Referring Physician: Sera Castillo [id number] [facility] [address] HPI: Mr. Leo Angelo is a 77 year old male seen in consultation for opinion regarding treatment options for Aneurysm, Ascending . The CT scan was reviewed and reveals a maximum aortic diameter of 52 mm in the area of Ascending. There is significant growth, but I have not seen him in nearly 8 years and his aorta is quite calcified. The Echocardiogram reveals normal ventricular function and well functioning valves. Impression: Based on my evaluation he is a low risk for cardiac surgery, aortic repair, aortic complications, and and can be monitored for now. He is going to work on quitting smoking. Plan: Continue medical management with tight blood pressure control, and close observation with serial imaging. Follow up with me and cardiology in 6 months and The following studies will be necessary; - CT gated thoracic aorta with contrast I spent 35 minutes in this visit, with more than 50% of the time devoted to patient counseling. Enzo Nelson MD documented in this encounterMercy [facility]11-18-2022 Miscellaneous Notes* Telephone Encounter - Thea Stewart Coord - 04/26/2022 4:23 PM EST Sent rescheduled appointments to Mrs. Angelo per her request. documented in this encounterMercy Health St. [facility]10-10-2022 History of Present illness Narrative* Sera Castillo MD - 03/18/2022 3:33 PM EDT Reason for Visit Patient presents with: ED Follow-up: chest pain- tx with omeprazole for acid reflux Leo Angelo is a 77 year old male who presents here today for Above Complaints.. Health Maintenance PNEUMOCOCCAL: 65+(2 - PCV) SHINGRIX VACCINE(3 of 3) COVID-19 VACCINE(4 - Booster for Pfizer series) ADVANCE DIRECTIVE DISCUSSION INFLUENZA(1) HPI Here with daughter. Leo is a very pleasant 76-year-old gentleman with a past medical history of hypertension, hyperlipidemia, abdominal aortic aneurysm, CAD which does not require stenting, tobacco abuse disorder, history of remote PE and he has prothrombin gene mutation although he is not on any anticoagulation except Lasix. He also has COPD from smoking. Thoracic aneurysm, recently went up to 5.3 cms, Has apt on May 01 with surgeon for his ascending aortic aneurysm, possibly discuss surgery Bp: he does not check his bp at home. Was in the er for pain in the epigastric area, he had a lot of eval, negative labs and test for cardiac issues. Was given prilosec which he did take. Patient is feeling better after taking prilosec Bp there was around 140 and today it is 136 or more. He was explained the need to be careful with his medications and to take them on a daily basis. He says he takes medication on a daily basis but does not know the names. Unclear if he takes his statin Daughter will call me with medication No problem-specific Assessment & Plan notes found for this encounter. PAST MEDICAL HISTORY Diagnosis Date AAA (abdominal aortic aneurysm) 4.3cm Bladder mass for cysto Chest pain Chronic bronchitis (HCC) Constipation Degeneration of lumbar or lumbosacral intervertebral disc 08/14/2007 Chronic off and on, Has been to Diverticulosis of colon (without mention of hemorrhage) GERD (gastroesophageal reflux disease) Internal hemorrhoids without mention of complication Other psoriasis left forearm; started out with abrasion and has never resolved (1999) Sciatica Right Thoracic aortic aneurysm without rupture 4.8cm as of 10/03/17 Tobacco use disorder 08/14/2007 Quit smoking October Unspecified Asthma 01/26/2009 PAST SURGICAL HISTORY Procedure Laterality Date ANESTHESIA OPEN TOTAL HIP ARTHROPLASTY 12/2011 Right hip ARTHRP ACETBLR/PROX FEM PROSTC AGRFT/ALGRFT 12/18 Dr Trujillo COLONOSCOPY FLX DX W/COLLJ SPEC WHEN PFRMD 04/16/12 Colonoscopy repeat 10 years PAST SURGICAL HISTORY OF Removal of bursa sac of left elbow PAST SURGICAL HISTORY OF 05/20 Cataract surgery left TONSILLECTOMY PRIMARY/SECONDARY <AGE 11 As child Tonsillectomy FAMILY HISTORY Problem Relation Age of Onset other (alzheimers) Mother COPD Father None Sister Aneurysm No Family History Social History Tobacco Use Smoking status: Every Day Packs/day: 1.00 Years: 58.00 Pack years: 58.00 Types: Cigarettes Start date: 06/09/1963 Smokeless tobacco: Never Tobacco comments: varies day to day--now 0.5PPD or less, usually less Substance Use Topics Alcohol use: No Alcohol/week: 30.0 standard drinks Types: 12 Cans of Beer (12oz) per week Comment: Was discussed with Dr. Rob at pre-op eval 11/19/11 Drug use: No Past medical history, appointments, medications, allergies reviewed. Pertinent Lab/Diagnostic Studies are reviewed and discussed today Current Outpatient Medications: aspirin, enteric coated (ASPIRIN, ENTERIC COATED) 81 mg EC tablet omeprazole (PRILOSEC) 40 mg capsule ramipril (ALTACE) 10 mg capsule clopidogrel (PLAVIX) 75 mg tablet atorvastatin (LIPITOR) 40 mg tablet fluticasone furoate (ARNUITY ELLIPTA) 100 mcg/actuation inhaler tiotropium bromide (SPIRIVA RESPIMAT) 2.5 mcg/actuation inhaler NIFEdipine ER (PROCARDIA XL) 30 mg 24 hr tablet multivitamin tablet Current Facility-Administered Medications: perflutren lipid microspheres 1.3 mL in NaCl (PF) 0.9% 10 mL injection (DEFINITY) sodium chloride 0.9 % (flush) 10 mL (BD POSIFLUSH) Review of Systems CONSTITUTIONAL: No fevers, chills night sweats, unintended weight loss CARDIOVASCULAR: No chest pain, dyspnea, palpitations, orthopnea, PND, ankle edema. PULM: No dyspnea, unexplained cough. GI: No dysphagia/odynophagia, problematic reflux, constipation, diarrhea, changes in stool habits, hematochezia, melena. : No new urinary complaints, including dysuria, gross hematuria or pyuria. NEURO: No new balance problems, peripheral weakness/paresthesias or numbness of concern. Physical Exam BP 136/62 (BP Site: Left Arm, BP Position: Sitting, BP Cuff Size: Large Adult) Pulse 74 Temp 36.9 C (98.5 F) Resp 12 Ht 168.9 cm (5' 6.5) Wt 62.1 kg (137 lb) SpO2 95% BMI 21.78 kg/m General appearance: Well appearing, alert, in no acute distress, well nourished. Skin: Skin color, texture, turgor normal, no suspicious rashes or lesions Head: Normocephalic, no masses, lesions, tenderness or abnormalities Eyes: Anicteric sclera. Pupils are equally round and reactive to light. Extraocular movements are intact. Lungs: Lungs clear to auscultation. No wheezing, rhonchi, rales Heart: RRR without murmur, gallop, or rubs. Extremities: No deformities, edema, skin discoloration, clubbing or cyanosis. Good capillary refill. ASSESSMENT/PLAN: 1. Gastroesophageal reflux disease without esophagitis - ICD9: 530.81, ICD10: K21.9 (primary diagnosis) - Discussed lifestyle modifications including losing weight, limiting caffeine, no meals three hours before sleep, and head of bed elevation - OMEPRAZOLE 40 MG CAPSULE,DELAYED RELEASE 2. Abdominal aortic aneurysm (AAA) without rupture, unspecified part - ICD9: 441.4, ICD10: I71.40 It is not large enough but his ascending is large and will need help 3. Tobacco use disorder - ICD9: 305.1, ICD10: F17.200 - Cessation encouraged. - Physiologic and physical aspects of tobacco addiction as well as strategies for quitting were discussed. - Counseling was given focusing on the harmful effects of this addiction especially given the patient's medical condition(s) which will be worsened because of the chemicals in tobacco. 4. Hypertension, unspecified type - ICD9: 401.9, ICD10: I10 - suboptimally controlled. Needs improved controlled due to aneurysm. Increased cardizem. Sera Castillo MD documented in this encounterMercy Health St. [facility]09-07-2022 History of Present illness Narrative* Ashleigh Candelario MD - 02/13/2022 9:50 AM EDT Images from the original note were not included. Heart, V[facility] [place] DEPARTMENT OF VASCULAR SURGERY OUTPATIENT VISIT DATE February 13, 2022 OUTPATIENT VISIT TYPE CONSULTATION SERVICE DATE: 02/13/2022 SERVICE TIME: 9:50 AM PRIMARY CARE PHYSICIAN: Sera Castillo MD REFERRING PROVIDER: Sera Castillo [address] [facility] [address] Consult requested for an opinion regarding the evaluation and treatment of the above. My final impression and recommendations will be communicated back to the requesting physician by way of the shared medical record or letter via US mail. CHIEF COMPLAINT: AAA HISTORY OF PRESENT ILLNESS: Vascular consultation at the request of Dr. Sera Castillo. A copy of this consultation note will be provided to the requesting physician by way of shared Medical record or letter to requesting physician via US mail. Mr. Angelo is a 77 year old male who is seen today for 4.8cm AAA. Patient presents today with a known AAA, has been followed by PCP in [place]. Was seen in ED recently with abdominal pain on 01/2022 and underwent CTA which showed AAA ~4.8cm. Patient states he is relatively active. Can climb a flight of stairs without any difficulty. Walks daily, no lower extremityclaudication or rest pain. Denies any chest, abdominal, or back pain. Continues to smoke daily, 0.5-1 pack per day. He also has a known ascending aneurysm which is 5.3cm on his recent CTA from Jan 2022. Continues to smoke daily. No h/o KS, stroke, DVT or PE. Not on anticoagulation but is on Plavix per his PCP for his abdominal blood clot. PAST MEDICAL HISTORY Diagnosis Date AAA (abdominal aortic aneurysm) (HCC) 4.3cm Bladder mass for cysto Chest pain Chronic bronchitis (HCC) Constipation Degeneration of lumbar or lumbosacral intervertebral disc 08/14/2007 Chronic off and on, Has been to Diverticulosis of colon (without mention of hemorrhage) GERD (gastroesophageal reflux disease) Internal hemorrhoids without mention of complication Other psoriasis left forearm; started out with abrasion and has never resolved (1999) Sciatica Right Thoracic aortic aneurysm without rupture (HCC) 4.8cm as of 10/03/17 Tobacco use disorder 08/14/2007 Quit smoking October Unspecified Asthma 01/26/2009 PAST SURGICAL HISTORY Procedure Laterality Date ANESTHESIA OPEN TOTAL HIP ARTHROPLASTY 12/2011 Right hip ARTHRP ACETBLR/PROX FEM PROSTC AGRFT/ALGRFT 12/18 Dr Trujillo COLONOSCOPY FLX DX W/COLLJ SPEC WHEN PFRMD 04/16/12 Colonoscopy repeat 10 years PAST SURGICAL HISTORY OF Removal of bursa sac of left elbow PAST SURGICAL HISTORY OF 05/20 Cataract surgery left TONSILLECTOMY PRIMARY/SECONDARY <AGE 11 As child Tonsillectomy SOCIAL HISTORY: Social History Tobacco Use Smoking status: Every Day Packs/day: 1.00 Years: 58.00 Pack years: 58.00 Types: Cigarettes Start date: 06[birth year]09/1963 Smokeless tobacco: Never Tobacco comments: varies day to day--now 0.5PPD or less, usually less Substance Use Topics Alcohol use: No Alcohol/week: 30.0 standard drinks Types: 12 Cans of Beer (12oz) per week Comment: Was discussed with Dr. Rob at pre-op eval 11/19/11 Drug use: No FAMILY HISTORY Problem Relation Age of Onset other (alzheimers) Mother COPD Father None Sister Aneurysm No Family History MEDICATIONS: ramipril (ALTACE) 10 mg capsule Take 1 capsule by mouth once daily. clopidogrel (PLAVIX) 75 mg tablet Take 1 tablet by mouth once daily. atorvastatin (LIPITOR) 40 mg tablet Take 1 tablet by mouth once daily. NIFEdipine ER (PROCARDIA XL) 30 mg 24 hr tablet Take 1 tablet by mouth once daily. fluticasone furoate (ARNUITY ELLIPTA) 100 mcg/actuation inhaler Inhale 2 Puffs as instructed once daily. Inhale one puff once daily. DO NOT CLICK OPEN UNTIL READY FOR DOSE (Patient not taking: Reported on 02/13/2022) tiotropium bromide (SPIRIVA RESPIMAT) 2.5 mcg/actuation inhaler Inhale 2 Puffs as instructed once daily. Inhale two puffs once daily. multivitamin tablet Take 1 tablet by mouth once daily. ALLERGIES: ALLERGIES Allergen Reactions Aspirin Swelling eyes swell up Seasonal Allergies REVIEW of SYSTEM: CONSTITUTIONAL: No weight loss, malaise , fevers or chills. HEENT: Negative for frequent or significant headaches, No changes in hearing or vision, no nose bleeds or other nasal problems. No TIA or amaurosis fugax. RESPIRATORY: Negative for cough, wheezing or shortness of breath. CARDIOVASCULAR: Negative for chest pain or palpitations GI: Negative for abdominal discomfort, blood in stools or black stools or change in bowel habits. : Denies any dysuria, frequency, or incontinence and No difficulty urination, nocturia >1 times per night or hematuria. MUSCULOSKELETAL: Negative for joint pain or swelling or back pain. ENDOCRINE: Negative for cold or heat intolerance, polyuria, polydipsia and goiter HEMATOLOGIC/LYMPHATIC: Negative for prolonged bleeding, bruising easily or swollen nodes. NEUROLOGIC: No history or headaches, syncope, paralysis, seizures or tremors. INTEGUMENTARY: Negative for rash or itching. PHYSICAL EXAM: VITALS: BP 123/67 Pulse 59 GENERAL: Responsive, cooperative and in no acute distress. NEURO: Alert and oriented x3. No gross focal neurological deficits. Neuromotor intact. HEENT: Normocephalic. Extraocular movements are intact. RESP: Clear b/l. Non-labored respirations CV: Regular rate and rhythm ABDOMEN: Soft. Non-tender. Non-distended INTEGUMENTARY: Wound - None MUSCULOSKELETAL: No gross deformities. Full ROM x all extremities. No LE edema Pulses/Signals: 2+ palp femoral, popliteal, DP/PT bilaterally Diagnostic tests reviewed for today's visit: Most recent labs Most recent imaging CTA chest/abd/pelvis 01/08/22 IMPRESSION: 1. The thoracic aorta is normal in course, aneurysmal in the ascending segment (5.2 cm in maximum diameter), and has diffuse moderate calcific atherosclerotic changes. No acute aortic pathology identified. 2. The abdominal aorta is remarkable for fusiform aneurysmal enlargement of the infrarenal segment (5.0 x 4.5 cm in maximum diameter) that contains a moderate amount of crescentic intraluminal thrombus, and there is diffuse severe calcific atherosclerotic changes. No acute abdominal aortic pathology. IMPRESSION: Mr. Angelo is a 77 year old male with 4.8cm AAA . 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 Nelson for his ascending aortic aneurysm Christiano Corbin MD Vascular Surgery Medical Decision Making: Medical Decision Making Level: 1 - N/A SIGNATURE: Ashleigh Candelario MD PATIENT NAME: Leo Angelo DATE: February 13, 2022 TIME: 9:50 AM [facility] STAFF PHYSICIAN NOTE OF PERSONAL INVOLVEMENT IN CARE Patient is seen in consultation at the request of the above noted physician. Based on my evaluationhe does not require intervention for small AAA> Will See Dr. Nelson for his ascending aneurysm of 5.3.. PLAN DISCUSSED WITH: pt See problem list I have reviewed the documentation obtained and documented by the Resident. I have personally performed a face to face assessment of the patient and have personally participated on the nayak components of the history, exam and medical decision making and have reviewed and updated the problem list as appropriate. I have personally performed a face to face assessment of the patient and have personallyparticipated in the nayak components. I have discussed the case and management of the patient's care. STAFF PHYSICIAN: Ashleigh Candelario MD DATE of SERVICE: 02/13/2022 TIME of SERVICE: 3:33 PM documented in this encounterMer[facility]2022 Miscellaneous Notes* Telephone Encounter - Angelica Taylor - 01/29/2022 6:04 AM EDT IN * Telephone Encounter - Chen France - 01/28/2022 4:55 PM EDT Please advise whether the patient's insurance is in network Thank you! documented in this encounterMer[facility]08-05-2022 Miscellaneous Notes* Telephone Encounter - Jeanie Wen - 01/11/2022 11:42 AM EDT Left vm for pt with appt info. Reminder letter sent as well. Jeanie Rowell PSS documented in this encounterMercy [facility]08-02-2022 History of Present illness Narrative* Debbie Stapleton, RT(R) - 01/08/2022 1:00 PM EDT Radiology Service Progress Note DATE OF SERVICE: January 08, 2022 TIME: 1:41 PM PATIENT IDENTITY VERIFICATION COMPLETED USING TWO (2) STANDARD IDENTIFIERS: Name and Date of confirmed by patient verbally. FALL SCREENING: Has the patient had 2 falls in the last year or 1 fall with injury or currently using an Ambulatory Assistive Device (Walker, Cane, Wheelchair, Crutches, etc.)? No PATIENT GENDER DATA: Male PATIENT RELEVANT IMPLANT DATA REVIEWED: Yes ALLERGIES: Reviewed and unchanged CONTRAST ALLERGY: NO. EXAM: CT -CONTRAST INDUCED NEPHROPATHY RISK FACTORS: Patient age > 60 years CREATININE: Creatinine Date Value Ref Range Status 01/08/2022 0.74 0.73 - 1.22 mg/dL Final 06/27/2020 0.87 0.73 - 1.22 mg/dL Final 12/01/2019 0.97 0.73 - 1.22 mg/dL Final Estimated Glomerular Filtration Rate Date Value Ref Range Status 01/08/2022 93 >=60 mL/min/1.73m Final Comment: Estimated Glomerular Filtration Rate (eGFR) is calculated using the 2020 CKD-EPI creatinine equation. This equation utilizes serum creatinine, sex, and age as parameters. The creatinine assay has traceable calibration to isotope dilution- mass spectrometry. Refer to KDIGO guidelines for clinical interpretation. In patients with unstable renal function, e.g. those with acute kidney injury, the eGFRmay not accurately reflect actual GFR. eGFR- Date Value Ref Range Status 06/27/2020 >60 Final P.O.C.T. RESULTS: POC done: Yes, See Lab Tab January 08, 2022 TREATMENT: N/A PERIPHERAL IV DATA: Ambulatory: A peripheral IV was started in the Left antecubital site with a Angio cath: 18 gauge. RADIOLOGY DEPARTMENT: CT; Exam(s) Completed: CTA Abdomen Pelvis and CTA Cardiac SIGNATURE: RT Darron(R) PATIENT NAME: Leo Angelo DATE: January 08, 2022 TIME: 1:41 PM documented in this encounterMer[facility]08-01-2022 Miscellaneous Notes* Telephone Encounter - Joann Colin LPN - 01/07/2022 5:39 PM EDT noted * Telephone Encounter - Mari Mcclelland APRN.CNP - 01/07/2022 3:43 PM EDT Ordered. Thank you Mari Mcclelland APRN.CNP * Telephone Encounter - Joann Colin LPN - 01/07/2022 3:40 PM EDT Patient needs STAT creatinine lab placed for tomorrow procedure. documented in this encounterMercy Health St. [facility]08-01-2022 History of Present illness Narrative* Sera Castillo MD - 01/07/2022 10:01 AM EDT Reason for Visit Patient presents with: Established Patient: 6 month follow up-refills Leo Angelo is a 76 year old male who presents here today for Above Complaints.. Health Maintenance LUNG CANCER SCREENING PNEUMOCOCCAL: 65+(2 - PCV) SHINGRIX VACCINE(3 of 3) ADVANCE DIRECTIVE DISCUSSION COVID-19 VACCINE(4 - Booster for Pfizer series) HPI Here with daughter. Leo is a very pleasant 76-year-old gentleman with a past medical history of hypertension, hyperlipidemia, abdominal aortic aneurysm, CAD which does not require stenting, tobacco abuse disorder, history of remote PE and he has prothrombin gene mutation although he is not on any anticoagulation except Lasix. He also has COPD from smoking. CAD: He is following up with Dr. gonzalez at [facility] he and is noted to have 40 to 50% stenosis in the mid CTA on cardiac cath in 2019. He also has been followed by them for his aortic aneurysm and in 2020 his aneurysm which had been staying at 4. 6 cm for the past few years and may do little diameter is now at 4.84. He has a large AAA and some abdominal pain recently..he had CT in 2019 which demonstrated suprarenal abdominal aortic aneurysm measuring 3.3 x 3.3 cm there was an infrarenal abdominal aortic aneurysmmeasuring 4.3 to 4.3 cm at the mid some mural thrombus was noted [facility] and no coagulation except for Plavix was given. In 2020 his aneurysm had increased to 4.84 in transverse diameter. Discussed that at the level of 5 he needs to have some kind of intervention and he is very close to that. He continues to smoke and he is very regular with his medications but today his blood pressure is 138. I wonder if there are fluctuations in his blood pressure making his systolic elevated especially when he is smoking.. Pointed out to him that in a few months he may require surgery and he needs to quit at least 6 weeks before surgery in order for the team to be convinced to do his surgery. Complains of some GERD today, taking jn-seltzer with relief. HTN: Denies headache, chest pain, palpitations, dyspnea and peripheral edema.. He does not check BP's generally. Leo likes to exercise by doing push ups and weights a few times a week. Weight is stable. Continues to smoke- less than half a pack of cigs a day. Hyperlipidemia: on stating but ldl is still high at 130, gloria with the aneurysm we are concerned. lays out his medications. Daughter notes he is always looking for things he Has misplaced. Notes some dizziness- he drinks cup of coffee in the morning, a bottle of water a day, sometimes hedrinks sprite, no sugar added. Drinks a couple bottles a day.. Recently been complaining of lower abdominal fullness with the AAA which is large I would be very concerned and sent her for cta brisa for checking the aorta No problem-specific Assessment & Plan notes found for this encounter. PAST MEDICAL HISTORY Diagnosis Date AAA (abdominal aortic aneurysm) (HCC) 4.3cm Bladder mass for cysto Chest pain Chronic bronchitis (HCC) Constipation Degeneration of lumbar or lumbosacral intervertebral disc 08/14/2007 Chronic off and on, Has been to Diverticulosis of colon (without mention of hemorrhage) GERD (gastroesophageal reflux disease) Internal hemorrhoids without mention of complication Other psoriasis left forearm; started out with abrasion and has never resolved (1999) Sciatica Right Thoracic aortic aneurysm without rupture (HCC) 4.8cm as of 10/03/17 Tobacco use disorder 08/14/2007 Quit smoking October Unspecified Asthma 01/26/2009 PAST SURGICAL HISTORY Procedure Laterality Date ANESTHESIA OPEN TOTAL HIP ARTHROPLASTY 12/2011 Right hip ARTHRP ACETBLR/PROX FEM PROSTC AGRFT/ALGRFT 12/18 Dr Trujillo COLONOSCOPY FLX DX W/COLLJ SPEC WHEN PFRMD 04/16/12 Colonoscopy repeat 10 years PAST SURGICAL HISTORY OF Removal of bursa sac of left elbow PAST SURGICAL HISTORY OF 05/20 Cataract surgery left TONSILLECTOMY PRIMARY/SECONDARY <AGE 11 As child Tonsillectomy FAMILY HISTORY Problem Relation Age of Onset COPD Father other (alzheimers) Mother None Sister Social History Tobacco Use Smoking status: Current Every Day Smoker Packs/day: 1.00 Years: 40.00 Pack years: 40.00 Types: Cigarettes Smokeless tobacco: Never Used Tobacco comment: varies day to day--now 0.5PPD or less, usually less Substance Use Topics Alcohol use: No Alcohol/week: 30.0 standard drinks Types: 12 Cans of Beer (12oz) per week Comment: Was discussed with Dr. Rob at pre-op eval 11/19/11 Drug use: No Past medical history, appointments, medications, allergies reviewed. Pertinent Lab/Diagnostic Studies are reviewed and discussed today Current Outpatient Medications: atorvastatin (LIPITOR) 40 mg tablet fluticasone furoate (ARNUITY ELLIPTA) 100 mcg/actuation inhaler tiotropium bromide (SPIRIVA RESPIMAT) 2.5 mcg/actuation inhaler NIFEdipine ER (PROCARDIA XL) 30 mg 24 hr tablet clopidogrel (PLAVIX) 75 mg tablet ramipril (ALTACE) 10 mg capsule multivitamin tablet Review of Systems CONSTITUTIONAL: No fevers, chills night sweats, unintended weight loss CARDIOVASCULAR: No chest pain, dyspnea, palpitations, orthopnea, PND, ankle edema. PULM: No dyspnea, unexplained cough. GI: No dysphagia/odynophagia, problematic reflux, constipation, diarrhea, changes in stool habits, hematochezia, melena. : No new urinary complaints, including dysuria, gross hematuria or pyuria. NEURO: No new balance problems, peripheral weakness/paresthesias or numbness of concern. Physical Exam BP 108/56 (BP Site: Right Arm, BP Position: Sitting, BP Cuff Size: Large Adult) Pulse 63 Temp 36.9 C (98.5 F) Resp 12 Ht 168.9 cm (5' 6.5) Wt 63.5 kg (140 lb) SpO2 96% BMI 22.26 kg/m General appearance: Well appearing, alert, in no acute distress, well nourished. Skin: Skin color, texture, turgor normal, no suspicious rashes or lesions Head: Normocephalic, no masses, lesions, tenderness or abnormalities Eyes: Anicteric sclera. Pupils are equally round and reactive to light. Extraocular movements are intact. Lungs: Lungs clear to auscultation. No wheezing, rhonchi, rales Heart: RRR without murmur, gallop, or rubs. Extremities: No deformities, edema, skin discoloration, clubbing or cyanosis. Good capillary refill. ASSESSMENT/PLAN: 1. Chronic obstructive pulmonary disease, unspecified COPD type (HCC) - ICD9: 496, ICD10: J44.9 (primary diagnosis) He does not use inhaler although he did respond very well to bronchodilators. 2. Essential (primary) hypertension - ICD9: 401.9, ICD10: I10 - good control - Recommended regular aerobic exercise. - Recommend home blood pressure monitoring, to bring results in on next visit - Goal of BP <130/80 - RAMIPRIL 10 MG CAPSULE 3. Encounter for screening for lung cancer - ICD9: V76.0, ICD10: Z12.2 4. Thoracic aortic aneurysm without rupture (HCC) - ICD9: 441.2, ICD10: I71.2 - CTA ABD/PEL W IVCON 5. Aneurysm of infrarenal abdominal aorta (HCC) - ICD9: 441.4, ICD10: I71.4 - CTA ABD/PEL W IVCON 6. Atherosclerosis of aorta (HCC) - ICD9: 440.0, ICD10: I70.0 - CTA CHEST (NONGATED) W IVCON Sera Castillo MD documented in this encounterMer[facility]04-11-2022 Miscellaneous Notes* Telephone Encounter - Arielle Nuñez MA - 09/17/2021 8:31 AM EDT NOV 12/26/21 SHARON 06/28/21 Patient electronically sent a request for the following prescription(s) Pending Prescriptions Disp Refills NIFEDIPINE ER 30 MG TABLET,EXTENDED RELEASE 90 tablet 3 Sig: TAKE 1 TABLET BY MOUTH EVERY DAY MAT: Yes Patient aware RX will be sent to pharmacy. No need to notify patient. Please review. Arielle Nuñez MA documented in this encounterMercy Health St. [facility]09-21-2012 History of Past illness Narrative* Problem Noted Date Resolved Date Alcohol dependence 02/28/2012 09/08/2018 Seborrheic Dermatitis: Central face 07/21/2009 07/21/2009 Other psoriasis 09/29/2007 07/21/2009 Chronic bronchitis 09/08/2018 documented as of this encounter (statuses as of 09/17/2021) [facility] History of Past illness Narrative* Problem Noted Date Resolved Date Alcohol dependence 02/28/2012 09/08/2018 Seborrheic Dermatitis: Central face 07/21/2009 07/21/2009 Other psoriasis 09/29/2007 07/21/2009 Chronic bronchitis 09/08/2018 documented as of this encounter (statuses as of 12/28/2021) [address]21-2012 History of Past illness Narrative* Problem Noted Date Resolved Date Alcohol dependence 02/28/2012 09/08/2018 Seborrheic Dermatitis: Central face 07/21/2009 07/21/2009 Other psoriasis 09/29/2007 07/21/2009 Chronic bronchitis 09/08/2018 documented as of this encounter (statuses as of 01/07/2022) [facility] History of Past illness Narrative* Problem Noted Date Resolved Date Alcohol dependence 02/28/2012 09/08/2018 Seborrheic Dermatitis: Central face 07/21/2009 07/21/2009 Other psoriasis 09/29/2007 07/21/2009 Chronic bronchitis 09/08/2018 documented as of this encounter (statuses as of 01/08/2022) [facility] History of Past illness Narrative* Problem Noted Date Resolved Date Alcohol dependence 02/28/2012 09/08/2018 Seborrheic Dermatitis: Central face 07/21/2009 07/21/2009 Other psoriasis 09/29/2007 07/21/2009 Chronic bronchitis 09/08/2018 documented as of this encounter (statuses as of 01/09/2022) [facility] of Past illness Narrative* Problem Noted Date Resolved Date Alcohol dependence 02/28/2012 09/08/2018 Seborrheic Dermatitis: Central face 07/21/2009 07/21/2009 Other psoriasis 09/29/2007 07/21/2009 Chronic bronchitis 09/08/2018 documented as of this encounter (statuses as of 01/09/2022) [facility] of Past illness Narrative* Problem Noted Date Resolved Date Alcohol dependence 02/28/2012 09/08/2018 Seborrheic Dermatitis: Central face 07/21/2009 07/21/2009 Other psoriasis 09/29/2007 07/21/2009 Chronic bronchitis 09/08/2018 documented as of this encounter (statuses as of 01/11/2022) [facility] of Past illness Narrative* Problem Noted Date Resolved Date Alcohol dependence 02/28/2012 09/08/2018 Seborrheic Dermatitis: Central face 07/21/2009 07/21/2009 Other psoriasis 09/29/2007 07/21/2009 Chronic bronchitis 09/08/2018 documented as of this encounter (statuses as of 01/11/2022) [facility] of Past illness Narrative* Problem Noted Date Resolved Date Alcohol dependence 02/28/2012 09/08/2018 Seborrheic Dermatitis: Central face 07/21/2009 07/21/2009 Other psoriasis 09/29/2007 07/21/2009 Chronic bronchitis 09/08/2018 documented as of this encounter (statuses as of 01/30/2022) [facility] of Past illness Narrative* Problem Noted Date Resolved Date Alcohol dependence 02/28/2012 09/08/2018 Seborrheic Dermatitis: Central face 07/21/2009 07/21/2009 Other psoriasis 09/29/2007 07/21/2009 Chronic bronchitis 09/08/2018 documented as of this encounter (statuses as of 02/13/2022) [facility] of Past illness Narrative* Problem Noted Date Resolved Date Alcohol dependence 02/28/2012 09/08/2018 Seborrheic Dermatitis: Central face 07/21/2009 07/21/2009 Other psoriasis 09/29/2007 07/21/2009 Chronic bronchitis 09/08/2018 documented as of this encounter (statuses as of 03/18/2022) [facility] of Past illness Narrative* Problem Noted Date Resolved Date Alcohol dependence 02/28/2012 09/08/2018 Seborrheic Dermatitis: Central face 07/21/2009 07/21/2009 Other psoriasis 09/29/2007 07/21/2009 Chronic bronchitis 09/08/2018 documented as of this encounter (statuses as of 04/26/2022) [facility] of Past illness Narrative* Problem Noted Date Resolved Date Alcohol dependence 02/28/2012 09/08/2018 Seborrheic Dermatitis: Central face 07/21/2009 07/21/2009 Other psoriasis 09/29/2007 07/21/2009 Chronic bronchitis 09/08/2018 documented as of this encounter (statuses as of 06/14/2022) [facility] of Past illness Narrative* Problem Noted Date Resolved Date Alcohol dependence 02/28/2012 09/08/2018 Seborrheic Dermatitis: Central face 07/21/2009 07/21/2009 Other psoriasis 09/29/2007 07/21/2009 Chronic bronchitis 09/08/2018 documented as of this encounter (statuses as of 08/14/2022) [facility] of Past illness Narrative* Problem Noted Date Resolved Date Alcohol dependence 02/28/2012 09/08/2018 Seborrheic Dermatitis: Central face 07/21/2009 07/21/2009 Other psoriasis 09/29/2007 07/21/2009 Chronic bronchitis 09/08/2018 documented as of this encounter (statuses as of 09/04/2022) [facility] of Past illness Narrative* Problem Noted Date Resolved Date Alcohol dependence 02/28/2012 09/08/2018 Seborrheic Dermatitis: Central face 07/21/2009 07/21/2009 Other psoriasis 09/29/2007 07/21/2009 Chronic bronchitis 09/08/2018 documented as of this encounter (statuses as of 09/11/2022) [facility] of Past illness Narrative* Problem Noted Date Resolved Date Alcohol dependence 02/28/2012 09/08/2018 Seborrheic Dermatitis: Central face 07/21/2009 07/21/2009 Other psoriasis 09/29/2007 07/21/2009 Chronic bronchitis 09/08/2018 documented as of this encounter (statuses as of 10/18/2022) [facility] of Past illness Narrative* Problem Noted Date Diagnosed Date Resolved Date Alcohol dependence 02/28/2012 9 Seborrheic Dermatitis: Central face 07/21/2009 07/21/2009 Other psoriasis 09/29/2007 07/21/2009 Chronic bronchitis 9 documented as of this encounter (statuses as of 12/14/2022) [facility] of Past illness Narrative* Problem Noted Date Diagnosed Date Resolved Date Alcohol dependence 02/28/2012 9 Seborrheic Dermatitis: Central face 07/21/2009 07/21/2009 Other psoriasis 09/29/2007 07/21/2009 Chronic bronchitis 9 documented as of this encounter (statuses as of 12/14/2022) [facility] [facility] History of Past illness Narrative* Problem Noted Date Diagnosed Date Resolved Date Alcohol dependence 02/28/2012 9 Seborrheic Dermatitis: Central face 07/21/2009 07/21/2009 Other psoriasis 09/29/2007 07/21/2009 Chronic bronchitis 9 documented as of this encounter (statuses as of 02/12/2023) [facility] History of Past illness Narrative* Problem Noted Date Diagnosed Date Resolved Date Alcohol dependence 02/28/2012 9 Seborrheic Dermatitis: Central face 07/21/2009 07/21/2009 Other psoriasis 09/29/2007 07/21/2009 Chronic bronchitis 9 documented as of this encounter (statuses as of 02/21/2023) [facility] History of Past illness Narrative* Problem Noted Date Diagnosed Date Resolved Date Alcohol dependence 02/28/2012 9 Seborrheic Dermatitis: Central face 07/21/2009 07/21/2009 Other psoriasis 09/29/2007 07/21/2009 Chronic bronchitis 9 documented as of this encounter (statuses as of 03/08/2023) [facility] History of Past illness Narrative* Problem Noted Date Diagnosed Date Resolved Date Alcohol dependence 02/28/2012 9 Seborrheic Dermatitis: Central face 07/21/2009 07/21/2009 Other psoriasis 09/29/2007 07/21/2009 Chronic bronchitis 9 documented as of this encounter (statuses as of 03/18/2023) [facility] History of Past illness Narrative* Problem Noted Date Diagnosed Date Resolved Date Alcohol dependence 02/28/2012 9 Seborrheic Dermatitis: Central face 07/21/2009 07/21/2009 Other psoriasis 09/29/2007 07/21/2009 Chronic bronchitis 9 documented as of this encounter (statuses as of 04/13/2023) [facility] History of Past illness Narrative* Problem Noted Date Diagnosed Date Resolved Date Alcohol dependence 02/28/2012 9 Seborrheic Dermatitis: Central face 07/21/2009 07/21/2009 Other psoriasis 09/29/2007 07/21/2009 Chronic bronchitis 9 documented as of this encounter (statuses as of 07/23/2023) [facility] History of Past illness Narrative* Problem Noted Date Diagnosed Date Resolved Date Alcohol dependence 02/28/2012 9 Seborrheic Dermatitis: Central face 07/21/2009 07/21/2009 Other psoriasis 09/29/2007 07/21/2009 Chronic bronchitis 9 documented as of this encounter (statuses as of 08/14/2023) [facility] History of Past illness Narrative* Problem Noted Date Diagnosed Date Resolved Date Alcohol dependence 02/28/2012 9 Seborrheic Dermatitis: Central face 07/21/2009 07/21/2009 Other psoriasis 09/29/2007 07/21/2009 Chronic bronchitis 9 documented as of this encounter (statuses as of 08/15/2023) [facility] History of Past illness Narrative* Problem Noted Date Diagnosed Date Resolved Date Alcohol dependence 02/28/2012 9 Seborrheic Dermatitis: Central face 07/21/2009 07/21/2009 Other psoriasis 09/29/2007 07/21/2009 Chronic bronchitis 9 documented as of this encounter (statuses as of 09/10/2023) [facility] Ray Dennis [facility] Note Date/Time August 17, 2024 7:1 9am [facility] Medical Records Department [address] [place] [address] Emergency Department Summary 08/17/24 MR#: [id number] Acct: [id number] Name: LEO ANGELO Rep #:[id number] : 1945 79 From: Ray Dennis DO PCP: Dr. Sera Castillo MD Status:REG E R Location: ED HPI History of Present Illness Chief Complaint: Stroke Alert Informant: patient and EMS Narrative Narrative: Patient is an 79-year-old male with past medical history of hypertension hyperlipidemia COPD nicotine dependence and CAD. Reportedly he went to bed around 830/9 PM last night and then awoke this morning and had a right arm and leg weakness as well as inability to stand or sit up as he was falling towards the right. Secondary to this EMS was called. They reported upon arrival he is awake and alert but they note right sided weakness. They report his blood sugaris normal. With concern for an acute CVA he was transported to the ER for evaluation. Upon arrival to the ER he is awake and alert and does have right sided deficit but there is improvement in strength of the arms and legs comparedto a EMS reported. 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) Alcoholism Major depression COPD (chronic obstructive pulmonary disease) Essential (primary) hypertension AAA (abdominal aortic aneurysm) without rupture Home Medications ?Medication ?Instructions ?Recorded ?Last Taken ?Type ramipril 10 mg capsule 10 mg PO DAILY 04/12/21 Unkn own History atorvastatin 40 mg tablet 40 mg PO DAILY #30 tabs 04/10 02/27 Unknown Rx aspirin 81 mg chewable tablet 81 mg PO DAILY 03/08/22 Unknown History omeprazole 40 mg capsule,delayed 40 mg PO DAILY #30 ca ps 03/08/22 Unknown Rx release nifedipine 30 mg tablet,extended 30 mg PO DAILY PCP gamez d him on 60 03/10/23 Unknown Rx release 24 hr mg but bp too low, please richie trammell #90 tabs mecobalamin (vitamin B12) 1,000 1,000 mcg PO DAILY 05/31 Unknown History mcg chewable tablet Allergy/AdvReac Type Severity Reaction Status Date / Time latex Allergy Rash Verified 08/17/24 05:56 Family History Mother CVA (cerebral vascular accident) Surgical History History of left heart catheterization (09/11/18) History of total right hip replacement Social History Smoking Status: Current every day smoker tobacco type: cigarettes alcohol intake: former substance use type: does not use caffeine: Yes Type: coffee ROS ROS ED Constitutional Constitutional ED: Denies chills or fever(s) Eyes Eyes: Denies blurry vision or change in vision ENT ENT ED: Denies sore throat Cardiovascular Cardiovascular: Denies chest pain, palpitations or racing heartbeat Respiratory/Chest Respiratory/Chest: Denies cough or dyspnea Gastrointestinal Gastrointestinal: Denies abdominal pain, diarrhea, nausea or vomiting Genitourinary Genitourinary ED: Denies dysuria Musculoskeletal Musculoskeletal: Denies back pain or neck pain Integumentary Denies rash Neurologic Neurologic: Reports paresthesias and weakness; Denies headache(s) Hematologic/Lymphatic Hematologic/Lymphatic: Denies easy bleeding or easy bruising EXAM Physical Exam Const Vital Signs: 08/17/24 05:55 08/17/24 05:56 08/17/24 06:03 Temperature 98.0 F Temperature Source Oral Pulse Rate 60 61 Respiratory Rate 16 16 Blood Pressure 135/63 H 105/65 128/63 H Blood Pressure Mean 87 78 84 Pulse Ox 97 97 Oxygen Delivery Method Room Air Room Air Room Air 08/17/24 06:09 08/17/24 06:25 08/17/24 06:30 Temperature Temperature Source Pulse Rate 60 60 Respiratory Rate 18 18 Blood Pressure 119/64 119/64 Blood Pressure Mean 82 82 Pulse Ox 94 98 98 Oxygen Delivery Method Room Air Room Air Room Air 08/17/24 06:54 08/17/24 07:00 08/17/24 07:00 Temperature Temperature Source Pulse Rate 66 62 63 Respiratory Rate 18 18 18 Blood Pressure 122/63 H 122/63 H 122/63 H Blood Pressure Mean 82 82 82 Pulse Ox 96 97 97 Oxygen Delivery Method Room Air Room Air Room Air Positive well nourished and well developed General Appearance ED: well developed; Negative for pallor HEENT HEENT Narrative: Normocephalic atraumatic Eyes PERRL and EOMs intact bilaterally General Eye ED: Negative for scleral icterus Neck supple Neck Narrative: No nuchal rigidity or meningeal signs Chest Wall palpation of chest normal Resp normal respiratory effort Resp Narrative: Breath sounds are diminished throughout with diffuse expiratory wheeze and rhonchi in the bilateral bases consistent with history of COPD but no signs of respiratory distress Cardio regular rate and regular rhythm Rate: other Other Details: Heart is regular rate and rhythm Radial and carotid pulses are equal and symmetric GI normal to inspection, nondistended, normoactive bowel sounds, non-tender, non-distended and no masses GI Narrative: No voluntary guarding or rigidity or pulsatile mass Auscultation: normoactive bowel sounds Palpation: soft Extremity normal to inspection Extremity Narrative: No asymmetric edema no pitting edema negative Homans' sign bilaterally Neuro oriented x3 Neuro Narrative: GCS of 15 Patient is awake and alert to person place and time He has right arm weakness and right leg weakness compared to left as there is a drift to both the right upper and lower extremity. He receives 1 point for the arm and leg drift. There is mild right sided facial paralysis noted as well which she also receives 1 point. He has loss of vision in the right eye upper outer quadrant for which he receives 1 point. There is also ataxia of the rightarm compared to the left and this receives 1 point as well Total NIH stroke scale score of 5 No truncal ataxia noted Sensorium / Orientation: alert Psych mental status grossly normal Skin no rashes or lesions noted General Skin Exam: Negative for jaundice or pallor MDM MDM MDM Narrative Medical decision making narrative: Patient arrived to the ER with stable vitals he is awake and alert and protecting his airway. Patient reported he went to bed around 830 or [address] EMS reported truncal ataxia with right arm and leg flaccid paralysis. There has been spontaneous improvement by the time he arrived to theER. Based on the fact his symptoms are considered a wake-up stroke and he went to bed early last evening he is outside any window for TNK and this is confirmedby the [facility] neurologist. The patient receives a stroke scale score of 5 upon arrival. On repeat evaluation he has had resolution of his right leg weakness change in his stroke scale score to a 4. The noncontrast CT reveals no bleed just microvascular ischemic changes were correlates with his medical condition and history. The CTA revealed multiple areas of thrombosis and occlusion but the neurologist feels this is chronic and related to his history of hypertensionhyperlipidemia nicotine dependence and CAD. He feels there is no need for emergent transfer or thrombectomy and that medical management at this time with aspirin and Plavix and continued workup with carotid ultrasound as well as MRI is the most appropriate plan of care. The case was discussed with patient and family and they are agreeable to this especially as there has been improvement from his initial symptoms at awakening. The plan of care was discussed with thehospitalist who agrees to accept the patient for continued treatment History & Record Review Discussion w/independent historian: EMS personnel, Patient and Family Lab Data Attestation: I reviewed the patient's lab results. Labs: Laboratory Results - last 24 hr 08/17/24 06:12 WBC 5.6 RBC 3.67 L Hgb 10.9 L Hct 33.0 L MCV 89.9 MCH 29.7 MCHC 33.0 RDW Std Deviation 44.2 H RDW Coeff of Michael 13.5 Plt Count 204 MPV 9.5 Immature Gran % (Auto) 0.200 Neut % (Auto) 68.6 Lymph % (Auto) 18.4 L Fergus % (Auto) 9.4 Eos % (Auto) 2.0 Baso % (Auto) 1.4 H Absolute Neuts (auto) 3.8 Absolute Lymphs (auto) 1.02 Nucleated RBC % 0 PT 13.6 INR 1.0 APTT 28.4 Sodium 134 Potassium 4.1 Chloride 101 Carbon Dioxide 23.5 Anion Gap 10 BUN 19 Creatinine 0.85 Estim Creat Clear Calc 53.53 Est GFR (MDRD) Non-Af 88 BUN/Creatinine Ratio 22.5 H Glucose 127 H Calcium 8.9 Ethyl Alcohol < 10.1 Radiography Diagnostic Testing: Clinical Impression(s) from Imaging Studies Brain CT 08/17/24 05:55 IMPRESSION: No acute intracranial hemorrhage, mass effect or midline shift. Extensive chronic microvascular ischemic disease. If there is concern for acute infarct, MRI may be obtained. One or more dose reduction techniques were used (e.g., Automated exposure control, adjustment of the mA and/or kV according to patient size, use of iterative reconstruction technique). Reading Location: [id number] Chest X-Ray 08/17/24 05:55 IMPRESSION: As above. Reading Location: [id number] Head/Neck CTA 08/17/24 05:56 IMPRESSION: Limited examination. 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 Partial thrombosis of visualized subclavian artery. Greater than 70 percent stenosis within the left proximal ICA. Approximately 50 percent stenosis within the right proximal ICA. Partial thrombosis of the right subclavian artery, partially visualized. Ray Dennis MD was notified of the critical findings in the ED at 6:33 a.m. Eastern standard time. One or more dose reduction techniques were used (e.g., Automated exposure control, adjustment of the mA and/or kV according to patient size, use of iterative reconstruction technique). Red Alert: Acute basilar artery thrombosis, right vertebral artery thrombosis near the acute.. The critical information above was relayed directly by me by telephone to Ray Dennis on 08/17/2024 at 6:33 am with readback verification. Reading Location: [id number] Management Discussion w/another healthcare provider: Hospitalist, Pairing Machine Operator and Radiologist Critical Care Time Critical Care Time: Yes Critical care time (excluding procedures): Discussing w/Patient &/or Family/CareGiver, Discussing w/Consultants, Arranging Admission or Transfer and - (Please note critical care time of 33 minutes) Discharge Plan Dx/Rx/DC Orders Clinical Impression: Acute cerebrovascular accident (CVA), Essential (primary) hypertension, Hyperlipidemia, Nicotine dependence Disposition Disposition: Acute Care Hospital [facility] What to do if you have Problems For any increased pain, shortness of breath, bleeding, nausea or vomiting, chestpain, or any unexpected problems, contact your Primary Care Provider. Call [facility] ([phone]) or report to the closest Emergency Room. Call 911 if necessary. 08/17/24718 <Electronically signed by Ray Dennis DO> Cosigner Signature (if applicable): CC: Dr. Sera Castillo MD ~ Signed [facility] Work Phone: Discharge summary Author Enzo Mann [facility] Note Date/Time August 18, 2024 2:3 7pm [facility] Medical Records Department [address] [place] [id number] Discharge Summary 08/18/24 1429 MR#: [id number] Acct: [id number] Name: LEO ANGELO Rep #:[id number] : 1945 79 From: Enzo Mann DO PCP: Dr. Sera Castillo MD Status:ADM I N Location: ICU CVICU20 3-1 Providers Date of Admission: 08/17/24 Primary Care Physician: Dr. Sera Castillo MD Consultations 08/17/24 08:34 Consult: Tele-Neurology Routine Consulting Provider: [facility] Reason for Consult: Acute Ischemic Stroke/TIA EMERGENT Consult: No MD Notified: Yes Date Notified: 08/17/24 Time Notified: 07:20 Method of Notification: ED Physician Initiated Nursing Unit Staff Notify [facility] of Tele-Neurology Consult: Yes Reason For Visit: CVA Diagnosis Discharge Diagnosis (1) Acute cerebrovascular accident (CVA): Status: Acute Code(s): I63.9 - Cerebral infarction, unspecified Plan: Unknown time of onset. Patient not a candidate for TNK nor is he candidate for LVO retrieval. Patient loaded with aspirin and clopidogrel in the emergency room. Will continue with that on the floor. Patient already on 40 mg of atorvastatin. Continue DAPT for 3 months, then ASA only. MRI brain Shows a small acute infarct of left thalamus. Punctate infarcts of the right cerebellum. Echo shows EF of 65%. (2) Carotid stenosis: Status: Acute Code(s): I65.29 - Occlusion and stenosis of unspecified carotid artery Plan: patient was noted to have carotid stenosis more prominent on the left. Recommend the patient follow-up with vascular surgery as outpatient. Patient has vascular surgery at [facility] for his aortic aneurysms. Check carotid duplex Appears to be unrelated with his current stroke symptoms. (3) Tobacco abuse: Status: Acute Code(s): Z72.0 - Tobacco use Plan: Exam the patient has daughter that smoking is his biggest preventable risk factor. Strongly advised cessation to help prevent further strokes in the future. Plan Chronic conditions * Aortic aneurysms, thoracic and abdominal. Currently stable. Follow-up with vascular surgery as outpatient. * Peripheral arterial disease, patient noted bilateral subclavian artery partial thrombosis. Follow-up with vascular surgery as outpatient. * Hypertension: Hold antihypertensives for the next 24 hours to maintain cerebral perfusion pressure. VTE prophylaxis with enoxaparin CODE STATUS: Addressed with the patient. Patient wishes to be full code. Discharge to rehab. Medications at Discharge Home Medications ramipril 10 mg capsule 10 mg PO DAILY 04/12/21 atorvastatin 40 mg tablet 40 mg PO DAILY #30 tabs 05/07/21 aspirin 81 mg chewable tablet 81 mg PO DAILY 03/08/22 omeprazole 40 mg capsule,delayed release 40 mg PO DAILY #30 caps 03/08/22 nifedipine 30 mg tablet,extended release 24 hr 30 mg PO DAILY PCP had him on 60 mg but bp too low, please change #90 tabs 03/10/23 clopidogrel 75 mg tablet 75 mg PO DAILY #0 tabs 08/18/24 enoxaparin 40 mg/0.4 mL subcutaneous syringe 40 mg (0.4 mL) subcut DAILY #0 mL 08/18/24 Hospital Course Operations None Procedures 2-D Echocardiogram Summary of Care Provided Minutes Spent on Discharge: 35 Hospital Course: Patient presents with right sided weakness on the . MRI showed acute infarct of the left thalamus and punctate acute infarcts of the right cerebellum. Neurology recommended aspirin and [place] grill for 3 months and then aspirin only. Patient was already on atorvastatin will continue that moving forward. Patient also is a smoker and strongly advised to quit. Patientshe does seem motivated to quit. Patient was noted to have a carotid stenosis on CTA as well as ultrasound. As this was not contributing to his current strokes this will not need to be intervened on urgently but patient should follow-up with vascular surgery. Patient was deemed appropriate for rehab and will be discharged there today. Overall the patient's workup and status is currently improved much faster than initial anticipated and patient is being discharged today to acute rehab. Weight / BMI Weight Weight: 60.5 kg Body Mass Index (BMI) 26.0 ABG / Lab / Microbiology Data 08/18/24 04:50 08/18/24 04:50 Laboratory: Laboratory Results - last 24 hr 08/18/24 04:50: WBC 5.1, RBC 4.16 L, Hgb 12.3 L, Hct 36.5 L, MCV 87.7, MCH 29.6,MCHC 33.7, RDW Std Deviation 43.3, RDW Coeff of Michael 13.4, Plt Count 231, MPV 9.7, Immature Gran % (Auto) 0.200, Neut % (Auto) 66.3, Lymph % (Auto) 19.2, Fergus% (Auto) 9.7, Eos % (Auto) 3.6, Baso % (Auto) 1.0, Absolute Neuts (auto) 3.4, Absolute Lymphs (auto) 0.97, Nucleated RBC % 0, Sodium 138, Potassium 3.8, Chloride 102, Carbon Dioxide 23.3, Anion Gap 12, BUN 16, Creatinine 0.79, Estim Creat Clear Calc 56.46, Est GFR (MDRD) Non-Af 90, BUN/Creatinine Ratio 20.2 H, Glucose 92, Calcium 9.3, Triglycerides 59, Cholesterol 155, LDL Cholesterol, Calc 85, VLDL Cholesterol 12, HDL Cholesterol 58, Cholesterol/HDL Ratio 2.66 Radiography Diagnostic Testing: Radiology Impression Carotid Duplex 08/17/24 08:34 Interpretation Summary Moderate (50-69%) stenosis right extracranial internal carotid. Moderate (50-69%) stenosis left extracranial internal carotid. Patent and antegrade vertebrals bilaterally. Ordering Physician: Enzo Mann Performed By: Alaina Ivey RVT and Student D/C Instructions Discharge Diet: Low fat / Low cholesterol DC O2, CPAP, BIPAP Needs Home O2 Discharge instructions: No Meaningful Use Info Meaningful Use Meaningful Use Diagnoses (Choose all that apply): Ischemic CVA CVA Therapy Assessed for PT,OT and/or ST?: Yes Ischemic Stroke Antithrombotic order at d/c?: Yes Dx of Atrial fib/flutter?: No Anticoagulant at discharge?: No Reason anticoagulant not ordered: Treatment not Indicated Statin Dosing Therapy Reference: STATIN DOSE THERAPY REFERENCE: * Patients > 75 years receive moderate or high dose statin therapy. * Patients 75 years or YOUNGER should receive HIGH intensity statin dose unless contraindicated. You will be required to document reason for non-treatment if statin daily dose does not meet guidelines. HIGH DOSE STATIN THERAPY DAILY Atorvastatin > than or = to 40 mg Rosuvastatin > than or = to 20 mg Amlodipine + Atorvastatin > than or = to 2.5/40 mg Ezetimibe + Simvastatin 10/80 mg Simvastatin 80mg Statins at discharge?: Yes Primary Dx Acute Ischemic CVA?: Yes IV thrombolytic ordered during stay?: No Reason IV thrombolytic not ordered: Treatment not Indicated Discharge Plan Admission Admit Date/Time: 08/17/24 07:18 Primary Reason for Your Visit: CVA Attending Provider: Enzo Mann Primary Care Provider: Sera Castillo Consulting Providers: Alec Goyal; Beka Harmon; Pavithra Rodriguez; Nissa Daily; Jocelyn Farley; Riley Justin; Halina Marie; Devan Hung; Almas Huerta; Wilton Curiel; Yaneth Mcelroy; Robert Quintero; Maria T Culp; Matthew Carolina; Cisco Boyle; Jame Vogt; Danny Carrillo; Clovis Beltre; Linda Lemon; Deon Sky Instructions Additional Instructions / Restrictions: Follow-up neurology as outpatient. [facility] [phone]. [facility] [place] [phone]. [facility] [place] [phone]. [facility] [phone]. [facility] [place] [phone] Discharge Orders/Prescriptions Prescriptions: New clopidogrel 75 mg Tablet 75 mg PO DAILY Qty: 0 0RF enoxaparin 40 mg/0.4 mL Syringe 40 mg subcut DAILY Qty: 0 0RF Rx Instructions: Continue while in rehab and then discontinue when discharged from rehab. Continued ramipril 10 mg capsule 10 mg PO DAILY aspirin 81 mg Tablet,Chewable 81 mg PO DAILY omeprazole 40 mg capsule,delayed release(DR/EC) 40 mg PO DAILY Qty: 30 0RF atorvastatin 40 mg tablet 40 mg PO DAILY Qty: 30 11RF nifedipine 30 mg tablet extended release 24hr 30 mg PO DAILY Qty: 90 3RF Referrals / Follow Up: Sera Castillo MD [Primary Care Provider] - Within 2 Weeks Enzo Marina MD [Med Staff - Active Staff] - Within 1 Month Disposition Disposition (needs filled in before D/C Order can be placed): Inpatient Rehab Unit/Facility Charges/Coding Visit Charges Inpatient E&M: 05472 Disch Hosp >30min 08/18/24 1437 <Electronically signed by Enzo Mann DO> Cosigner Signature (if applicable): CC: Dr. Sera Castillo MD; Dr. Enzo Mann DO~ Signed [facility] Work Phone: Evaluation note* Diagnosis Essential (primary) hypertension Unspecified essential hypertension documented in this encounter [facility]* Diagnosis Hypertension Unspecified essential hypertension Medication management Encounter for long-term (current) use of other medications documented in this encounter [facility]* Diagnosis Hypertension, unspecified type- Primary Pre-procedure lab exam Pre-procedural laboratory examination documented in this encounter [facility]* Diagnosis Chronic obstructive pulmonary disease, unspecified COPD type (HCC)- Primary Essential (primary) hypertension Unspecified essential hypertension Encounter for screening for lung cancer Thoracic aortic aneurysm without rupture (HCC) Thoracic aneurysm without mention of rupture Aneurysm of infrarenal abdominal aorta (HCC) Abdominal aneurysm without mention of rupture Atherosclerosis of aorta (HCC) Atherosclerosis of aorta [facility] Diagnosis Thoracic aortic aneurysm without rupture (HCC) Thoracic aneurysm without mention of rupture Aneurysm of infrarenal abdominal aorta (HCC) Abdominal aneurysm without mention of rupture [facility]* Diagnosis Atherosclerosis of aorta (HCC) Atherosclerosis of aorta documented in this encounter [facility]* Diagnosis Abdominal aortic aneurysm (AAA) without rupture (HCC)- Primary Vasculopathy Unspecified circulatory system disorder documented in this encounter [facility]* Diagnosis Aneurysm of ascending aorta (HCC)- Primary Thoracic aneurysm without mention of rupture Aneurysm of infrarenal abdominal aorta (HCC) Abdominal aneurysm without mention of rupture Thoracic aortic aneurysm without rupture (HCC) Thoracic aneurysm without mention of rupture [facility] Diagnosis Gastroesophageal reflux disease without esophagitis- Primary Esophageal reflux Abdominal aortic aneurysm (AAA) without rupture, unspecified part Tobacco use disorder Hypertension, unspecified type documented in this encounter [facility]* Diagnosis Aneurysm of ascending aorta without rupture- Primary documented in [facility] Diagnosis Abdominal aortic aneurysm (AAA) without rupture, unspecified part (HCC)- Primary [facility] Diagnosis Abdominal aortic aneurysm (AAA) without rupture, unspecified part (HCC)- Primary Aneurysm of ascending aorta without rupture (HCC) documented 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* Diagnosis Localized swelling, mass and lump, trunk- Primary documented in [facility] Diagnosis Aneurysm of ascending aorta without rupture (HCC)- Primary documented [facility] Diagnosis Aneurysm of ascending aorta without rupture (HCC) Disorder of artery or arteriole (HCC) Unspecified disorders of arteries and arterioles documented in 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 Diagnosis Essential (primary) hypertension- Primary Unspecified essential hypertension Atherosclerosis of aorta (HCC) Atherosclerosis of aorta Abdominal aortic aneurysm (AAA) without rupture, unspecified part (HCC) Benign prostatic hyperplasia without lower urinary tract symptoms Prostate cancer screening Special screening for malignant neoplasm of prostate Anemia, unspecified type Elevated glucose Other abnormal glucose Medication management Encounter for long-term (current) use of other medications [facility] Diagnosis Deformity of scapula [facility] Diagnosis Moderate episode of recurrent major depressive disorder (HCC)- Primary Anxiety Anxiety state, unspecified documented in this 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* Diagnosis Aneurysm of infrarenal abdominal aorta, unspecified whether ruptured (HCC)- Primary documented in this encounter [facility]* Diagnosis Recurrent major depressive disorder, in partial remission (HCC)- Primary Essential (primary) hypertension Unspecified essential hypertension Abdominal aortic aneurysm (AAA) without rupture, unspecified part (HCC) Low iron stores Other abnormal blood chemistry Encounter for therapeutic drug monitoring Screening for lipid disorders documented in this encounter [facility]* Diagnosis Gastroesophageal reflux disease without esophagitis Esophageal reflux documented in this encounter [facility]* Diagnosis Gastroesophageal reflux disease without esophagitis Esophageal reflux documented in this [facility]* Diagnosis Disorder of artery or arteriole (HCC)- Primary Unspecified disorders of arteries and arterioles documented in [facility]* Diagnosis Abdominal aortic aneurysm (AAA) without rupture, unspecified part (HCC)- Primary documented [facility]* Diagnosis Aneurysm of ascending aorta without rupture (HCC)- Primary documented [facility]* Diagnosis Abdominal aortic aneurysm (AAA) without rupture, unspecified part (HCC)- Primary Aneurysm of other specified arteries (HCC) documented in [facility]* Diagnosis Disorder of artery or arteriole (HCC) Unspecified disorders of arteries and arterioles documented in this 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* Diagnosis Memory impairment- Primary Memory loss documented [facility]* Diagnosis Essential (primary) hypertension Unspecified essential hypertension documented 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 Diagnosis Cerebrovascular accident (CVA), unspecified mechanism (HCC)- Primary Hypertension, unspecified type Abdominal aortic aneurysm (AAA) without rupture, unspecified part Driving safety issue Other specified personal history presenting hazards to health Prothrombin gene mutation (HCC) Primary hypercoagulable state documented in this [facility] Author Enzo Mann [facility] Note Date/Time August 17, 2024 7:4 8am [facility] Medical Records Department [address] [place] [id number] H&P Exam - Hospitalist 08/17/24 0740 MR#: [id number] Acct: [id number] Name: LEO ANGELO Rep #:[id number] : 1945 79 From: Enzo Mann DO PCP: Dr. Sera Castillo MD Status:REG E R Location: ED HPI - General General Date of Service: 08/17/24 Chief Complaint: Right-sided weakness HPI Narrative LEO ANGELO, is a 79 M who presents with right-sided weakness. Patient awoke this morning with right-sided weakness and instability. Last known well was around 2029 on the . Patient had dense right-sided hemiparesis when he presented. Patient underwent a workup in the emergency room. CTA of the head and neck showed an acute basilar artery thrombosis, right supra Teba heart cheerio occlusion which may be acute to subacute. Partial thrombosis of the visualized subclavian artery, greater than 70% stenosis of the left proximal ICA, approximately 50% stenosis of the right proximal ICA. Partial thrombosis of the right subclavian artery. [facility] tel[facility]rology was consulted and patient wasdeemed not a candidate for TNK given unknown time of onset greater than 4 hours and did not feel that transfer was necessary for the CTA findings. Patient has never had a stroke before. 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) Alcoholism Major depression COPD (chronic obstructive pulmonary disease) Essential (primary) hypertension AAA (abdominal aortic aneurysm) without rupture Home Medications ?Medication ?Instructions ?Recorded ?Last Taken ?Type ramipril 10 mg capsule 10 mg PO DAILY 04/12/21 Unkn own History atorvastatin 40 mg tablet 40 mg PO DAILY #30 tabs 04/10 02/27 Unknown Rx aspirin 81 mg chewable tablet 81 mg PO DAILY 03/08/22 Unknown History omeprazole 40 mg capsule,delayed 40 mg PO DAILY #30 ca ps 03/08/22 Unknown Rx release nifedipine 30 mg tablet,extended 30 mg PO DAILY PCP gamez d him on 60 03/10/23 Unknown Rx release 24 hr mg but bp too low, please ch valeri #90 tabs mecobalamin (vitamin B12) 1,000 1,000 mcg PO DAILY 05/31 Unknown History mcg chewable tablet Allergy/AdvReac Type Severity Reaction Status Date / Time latex Allergy Rash Verified 08/17/24 05:56 Family History Mother CVA (cerebral vascular accident) Surgical History History of total right hip replacement History of left heart catheterization (09/11/18) Social History Smoking Status: Current every day smoker tobacco type: cigarettes alcohol intake: former substance use type: does not use caffeine: Yes Type: coffee ROS ROS Narrative No visual changes. No headache. All review of systems were negative except as mentioned above in the history of present illness and the other review of systems. Vital Signs Vital Signs Vital Signs: 08/17/24 05:55 08/17/24 05:56 08/17/24 06:03 Temperature 36.7 C Temperature Source Oral Pulse Rate 60 61 Respiratory Rate 16 16 Blood Pressure 135/63 H 105/65 128/63 H Blood Pressure Mean 87 78 84 Pulse Ox 97 97 Oxygen Delivery Method Room Air Room Air Room Air 08/17/24 06:09 08/17/24 06:25 08/17/24 06:30 Temperature Temperature Source Pulse Rate 60 60 Respiratory Rate 18 18 Blood Pressure 119/64 119/64 Blood Pressure Mean 82 82 Pulse Ox 94 98 98 Oxygen Delivery Method Room Air Room Air Room Air 08/17/24 06:54 08/17/24 07:00 08/17/24 07:00 Temperature Temperature Source Pulse Rate 66 62 63 Respiratory Rate 18 18 18 Blood Pressure 122/63 H 122/63 H 122/63 H Blood Pressure Mean 82 82 82 Pulse Ox 96 97 97 Oxygen Delivery Method Room Air Room Air Room Air 08/17/24 07:30 Temperature Temperature Source Pulse Rate 57 L Respiratory Rate 18 Blood Pressure 112/84 H Blood Pressure Mean 93 Pulse Ox 97 Oxygen Delivery Method Room Air Weight Weight: 61.5 kg Body Mass Index (BMI) 26.4 Physical Exam Narrative - Physical Exam General: Alert, Oriented x3, Cooperative HEENT: Atraumatic, PERRLA, EOMI, Normocephalic Oral: Moist Mucosa, No Gingival or Mucosal Lesions/ Ulcerations Neck: No thyromegaly, Negative Carotid Bruits Lungs: Clear to auscultation, Normal air movement Cardiovascular: Regular rate, Normal S1, Normal S2, No murmurs Abdomen: Bowel Sounds Present, Soft, Non Tender, Non-Distended, No Hepato-splenomegaly Extremities: No clubbing, No cyanosis, No edema, Capillary Refill Less than 3 Seconds Skin: No rashes, No breakdown Musculoskeletal: No Tenderness to Palpation of Joints or Extremities Neurological: Cranial nerves II through XII grossly intact. Muscle strength 4:55 in the AM left upper and left lower extremity. 4-5 in the right upper and right lower extremity. Ataxia the right [id number] and right [id number]. Sensation grossly intact throughout. Psych/Mental Status: Normal Affect, Appropriate Results Lab / Micro Data Attestation: I reviewed the patient's lab results. 08/17/24 06:12 08/17/24 06:12 Labs: Laboratory Results - last 24 hr 08/17/24 06:12: WBC 5.6, RBC 3.67 L, Hgb 10.9 L, Hct 33.0 L, MCV 89.9, MCH 29.7,MCHC 33.0, RDW Std Deviation 44.2 H, RDW Coeff of Michael 13.5, Plt Count 204, MPV 9.5, Immature Gran % (Auto) 0.200, Neut % (Auto) 68.6, Lymph % (Auto) 18.4 L, Fergus % (Auto) 9.4, Eos % (Auto) 2.0, Baso % (Auto) 1.4 H, Absolute Neuts (auto) 3.8, Absolute Lymphs (auto) 1.02, Nucleated RBC % 0, PT 13.6, INR 1.0, APTT 28.4, Sodium 134, Potassium 4.1, Chloride 101, Carbon Dioxide 23.5, Anion Gap 10, BUN 19, Creatinine 0.85, Estim Creat Clear Calc 53.53, Est GFR (MDRD) Non-Af88, BUN/Creatinine Ratio 22.5 H, Glucose 127 H, Calcium 8.9, Ethyl Alcohol < 10.1 EKG Initial EKG: Attestation: I personally reviewed and interpreted this EKG as follows: Prior EKG tracings: available for review EKG Rhythm Intrepretation: Sinus Rhythm Imaging Radiology Impression Brain CT 08/17/24 05:55 IMPRESSION: No acute intracranial hemorrhage, mass effect or midline shift. Extensive chronic microvascular ischemic disease. If there is concern for acute infarct, MRI may be obtained. One or more dose reduction techniques were used (e.g., Automated exposure control, adjustment of the mA and/or kV according to patient size, use of iterative reconstruction technique). Reading Location: [facility] Chest X-Ray 08/17/24 05:55 IMPRESSION: As above. Reading Location: [facility] Head/Neck CTA 08/17/24 05:56 IMPRESSION: Limited examination. 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 Partial thrombosis of visualized subclavian artery. Greater than 70 percent stenosis within the left proximal ICA. Approximately 50 percent stenosis within the right proximal ICA. Partial thrombosis of the right subclavian artery, partially visualized. Ray Dennis MD was notified of the critical findings in the ED at 6:33 a.m. Eastern standard time. One or more dose reduction techniques were used (e.g., Automated exposure control, adjustment of the mA and/or kV according to patient size, use of iterative reconstruction technique). Red Alert: Acute basilar artery thrombosis, right vertebral artery thrombosis near the acute.. The critical information above was relayed directly by me by telephone to Ray Dennis on 08/17/2024 at 6:33 am with readback verification. Reading Location: [id number] Assessment & Plan Assessment/Plan (1) Acute cerebrovascular accident (CVA): PLAN: Unknown time of onset. Patient not a candidate for TNK nor is he candidate for LVO retrieval. Patient loaded with aspirin and clopidogrel in the emergency room. Will continue with that on the floor. Patient already on 40 mg of atorvastatin. Check MRI of the brain, carotid ultrasound, 2D echocardiogram, therapy evaluations (PT, OT and speech therapy) (2) Carotid stenosis: PLAN: patient was noted to have carotid stenosis more prominent on the left. Recommend the patient follow-up with vascular surgery as outpatient. Patient has vascular surgery at [facility] for his aortic aneurysms. Check carotid duplex (3) Tobacco abuse: PLAN: Exam the patient has daughter that smoking is his biggest preventable riskfactor. Strongly advised cessation to help prevent further strokes in the future. PLAN: Plan Chronic conditions * Aortic aneurysms, thoracic and abdominal. Currently stable. Follow-up with vascular surgery as outpatient. * Peripheral arterial disease, patient noted bilateral subclavian artery partial thrombosis. Follow-up with vascular surgery as outpatient. * Hypertension: Hold antihypertensives for the next 24 hours to maintain cerebral perfusion pressure. VTE prophylaxis with enoxaparin CODE STATUS: Addressed with the patient. Patient wishes to be full code. Charges/Coding Visit Charges Inpatient E&M: 45006 Init Hosp L3 08/17/24 0748 <Electronically signed by Enzo Mann DO> Cosigner Signature (if applicable): CC: Dr. Sera Castillo MD; Dr. Enzo Mann DO~ Signed [facility] Work Phone: Reason for referral (narrative)* Outpatient Procedure (Routine) - Authorized Specialty Diagnoses / Procedures Referred By Contac t [facility] Diagnoses Abdominal aortic aneurysm (AAA) without rupture, unspecified part (HCC) Aneurysm of ascending aorta without rupture (HCC) Procedures US ABD AORTA COMPLETE VAS LAB DUP-SCAN AORTA IVC ILIAC VASCL/BPGS COMPLETE Ashleigh Candelario MD [address] [place] [address] [facility] [place] [address] [place] [address] Referral ID Status Reason Start Date Expiration Date Visits Requested Visits Authorized [id number] Authorized Auto-Generat ed Referral 08/14/2022 08/14/2023 1 1 [facility] for referral (narrative)* Diagnostic Procedure Only (Routine) - Authorized Specialty Diagnoses / Procedures Referred By Contac t Referred To Contact [facility] Diagnoses Deformity of scapula Procedures US SOFT TISSUE ABDOMEN US ABDOMINAL REAL TIME W/IMAGE LIMITED Alessio Feilds MD [address] [place] [id number] [facility] Referral ID Status Reason Start Date Expiration Date Visits Requested Visits Authorized [id number] Authorized Auto-Generat ed Referral 09/10/2022 10/10/2023 1 1 * Diagnostic Procedure Only (Routine) - Pending Review Specialty Diagnoses / Procedures Referred By Contac t Referred To Contact [facility] IMAGING Diagnoses Deformity of scapula Procedures US CHEST WALL/SOFT TISSUE US CHEST REAL TIME W/IMAGE DOCUMENTATION Alessio Fields MD [address] [place] [address] Us Imaging Referral ID Status Reason Start Date Expiration Date Visits Requested Visits Authorized [id number] Pending Review Auto-Generat ed Referral 09/10/2022 10/10/2023 1 1 [facility] for referral (narrative)* Diagnostic Procedure Only (Routine) - Closed Specialty Diagnoses / Procedures Referred By Contac t Referred To Contact [facility] IMAGING Diagnoses Deformity of scapula Procedures US CHEST WALL/SOFT TISSUE US CHEST REAL TIME W/IMAGE DOCUMENTATION Alessio Fields MD [address] [facility] [place] [address] [place] [address] Referral ID Status Reason Start Date Expiration Date V isits Requested Visits Authorized [id number] Closed Auto-Generated Referral Patient Cleared - INN Insurance Found 09/10/2022 10/10/2023 1 1 [facility] for referral (narrative)* Outpatient Procedure (Routine) - Authorized Specialty Diagnoses / Procedures Referred By Neli carr Referred To Contact [facility] [place] Diagnoses Aneurysm of infrarenal abdominal aorta, unspecified whether ruptured (HCC) Procedures US ABD AORTA COMPLETE VAS LAB DUP-SCAN AORTA IVC ILIAC VASCL/BPGS COMPLETE Ashleigh Candelario MD [address] [place] [address] [address] Referral ID Status Reason Start Date Expiration Date Visits Requested Visits Authorized [id number] Authorized Auto-Generat ed Referral 08/15/2023 08/14/2024 1 1 [facility] for referral (narrative)* Outpatient Procedure (Routine) - New Request Specialty Diagnoses / Procedures Referred By Neli carr Referred To Contact [facility] Diagnoses Abdominal aortic aneurysm (AAA) without rupture, unspecified part (HCC) Aneurysm of other specified arteries (HCC) Procedures US ABD AORTA COMPLETE VAS LAB DUP-SCAN AORTA IVC ILIAC VASCL/BPGS COMPLETE Ashleigh Candelario MD [address] [place] [address] [address] Referral ID Status Reason Start Date Expiration Date Visits Requested Visits Authorized [id number] New Request Auto-Generat ed Referral 02/19/2024 02/18/2025 1 1 [facility] for referral (narrative)* Outpatient Procedure (Routine) - New Request Specialty Diagnoses / Procedures Referred By Neli t Referred [facility] Diagnoses Disorder of artery or arteriole (HCC) Chest pain, unspecified Procedures ECHO ECHO TTHRC R-T 2D W/WOM-MODE COMPL SPEC&COLR D Enzo Nelson MD [address] [place] [address] [facility] [place] [address] Referral ID Status Reason Start Date Expiration Date Visits Requested Visits Authorized [id number] New Request Auto-Generat ed Referral 02/24/2024 02/23/2025 1 1 * MRI/CT (Routine) - New Request Specialty Diagnoses / Procedures Referred By Neli carr Referred To Contact CT IMAGING Diagnoses Disorder of artery or arteriole (HCC) Procedures CTA CHEST (GATED) W IVCON CT ANGIOGRAPHY CHEST W/CONTRAST/NONCONTRAST Enzo Nelson MD [address] [place] [address] Ct Imaging [place] [address] Referral ID Status Reason Start Date Expiration Date Visits Requested Visits Authorized [id number] New Request Auto-Generat ed Referral 02/24/2024 03/25/2025 1 1 [facility] for referral (narrative)No reason for referral information [facility] Work Phone: Summary Purpose Family History No Family History Records Found Relationship Condition Age at Onset Recorded Date/T siddhartha mother Cerebrovascular accident (CVA) Unknown Advance Directives No Advanced Directives Records FoundDocuments on File Type Date Recorded Patient Transcribing Operator Head Expl anation Advance Directive(s) 01/08/2022 10:05 PM Documents on File Type Date Recorded Patient Transcribing Operator Head Expl anation Advance Directive(s) 01/08/2022 10:05 PM Advance Directive Response Recorded Date/ Time Living Will No August 17, 2024 6:08am Power of Janitor Supervisor No August 17 6:08am Advance Directives No September 11 9:15am Advance Directive Response Recorded Date/ Time Living Will No August 17, 2024 8:36am Power of Janitor Supervisor No August 17 8:36am Advance Directives No September 11 9:15am Advance Directive Response Recorded Date/ Time Living Will Yes August 18, 2024 4:09pm Do you have a Healthcare Power of Janitor Supervisor? Yes August 18, 2024 4:09pm Name of Medical Power of Janitor Supervisor August 18, 2024 4:09pm Living Will No August 17, 2024 8:36am Do you have a Healthcare Power of Janitor Supervisor? No August 17, 2024 8:36am Advance Directives No September 11 9:15am Reason for Referral Specialty Diagnoses / Procedures Referred By Contac t Referred To Contact CT IMAGING Diagnoses Thoracic aortic aneurysm without rupture (HCC) Aneurysm of infrarenal abdominal aorta (HCC) Procedures CTA ABD/PEL W IVCON CT ANGIO ABD&PLVIS CNTRST MTRL W/WO CNTRST Sera Mayberry MD [address] [place] [address] Ct Imaging Referral ID Status Reason Start Date Expiration Date Visits Requested Visits Authorized [id number] Authorized Auto-Generat ed Referral 01/07/2022 02/06/2023 1 1 Specialty Diagnoses / Procedures Referred By Contac t Referred To Contact CT IMAGING Diagnoses Atherosclerosis of aorta (HCC) Procedures CTA CHEST (NONGATED) W IVCON CT ANGIOGRAPHY CHEST W/CONTRAST/NONCONTRAST Sera Castillo MD [address] [place] [address] Ct Imaging Referral ID Status Reason Start Date Expiration Date Visits Requested Visits Authorized [id number] Authorized Auto-Generat ed Referral 01/07/2022 02/06/2023 1 1 Referral ID Status Reason Start Date Expiration Date V isits Requested Visits Authorized [id number] Closed Auto-Generate d Referral 01/07/2022 02/06/2023 1 1 Referral ID Status Reason Start Date Expiration Date V isits Requested Visits Authorized [id number] Closed Auto-Generate d Referral 01/07/2022 02/06/2023 1 1 Specialty Diagnoses / Procedures Referred By Contac t Referred To Contact CT IMAGING Diagnoses Abdominal aortic aneurysm (AAA) without rupture (HCC) Vasculopathy Procedures CTA ABD/PEL WO/W IVCON CT ANGIO ABD&PLVIS CNTRST MTRL W/WO CNTRST IMGES Ashleigh Candelario MD [id number] Imaging Referral ID Status Reason Start Date Expiration Date Visits Requested Visits Authorized [id number] Authorized Auto-Generat ed Referral 01/11/2022 02/10/2023 1 1 Specialty Diagnoses / Procedures Referred By Contac t Referred To Contact CT IMAGING Diagnoses Abdominal aortic aneurysm (AAA) without rupture (HCC) Procedures CTA CHEST (NONGATED) WO/W IVCON CT ANGIOGRAPHY CHEST W/CONTRAST/NONCONTRAST Ashleigh Candelario MD [id number] Imaging Referral ID Status Reason Start Date Expiration Date Visits Requested Visits Authorized [id number] Authorized Auto-Generat ed Referral 01/11/2022 02/10/2023 1 1 Specialty Diagnoses / Procedures Referred By Contac t Referred To Contact General Surgery Diagnoses Deformity of scapula Procedures CONSULT TO GENERAL SURGERY OFFICE/OUTPATIENT [facility] 60-74 MINUTES Sera Castillo MD [address] [place] [address] Referral ID Status Reason Start Date Expiration Date Visits Requested Visits Authorized [id number] Authorized PCP Requested Referral 09/04/2022 09/04/2023 1 1 Specialty Diagnoses / Procedures Referred By Contac t Referred To Contact MR IMAGING Diagnoses Localized swelling, mass and lump, trunk Procedures MRI CHEST LUNG/MEDIA/PULM ARTERY WO/W IVCON MRI CHEST W/O & W/CONTRAST MATERIAL Segundo Dong MD [address] [place] [address] Mr Imaging Referral ID Status Reason Start Date Expiration Date Visits Requested Visits Authorized [id number] Pending Review Auto-Generat ed Referral 10/17/2022 11/16/2023 1 1 Specialty Diagnoses / Procedures Referred By Contac t Referred To Contact CT IMAGING Diagnoses Aneurysm of ascending aorta without rupture (HCC) Disorder of artery or arteriole (HCC) Procedures CTA CHEST (GATED) W IVCON CT ANGIOGRAPHY CHEST W/CONTRAST/NONCONTRAST Mikayla Puentes APRN.CNS [address] [place] [address] Ct Imaging Referral ID Status Reason Start Date Expiration Date V isits Requested Visits Authorized [id number] Closed Auto-Generate d Referral 09/12/2022 10/12/2023 1 1 Specialty Diagnoses / Procedures Referred By Contac t Referred To Contact CT IMAGING Diagnoses Disorder of artery or arteriole (HCC) Procedures CTA CHEST (GATED) W IVCON CT ANGIOGRAPHY CHEST W/CONTRAST/NONCONTRAST Enzo Nelson MD [address] [place] [address] [place] [id number] Referral ID Status Reason Start Date Expiration Date Visits Requested Visits Authorized [id number] New Request Auto-Generat ed Referral 03/12/2024 02/17/2025 1 1 Referral ID Status Reason Start Date Expiration Date V isits Requested Visits Authorized [id number] Closed Auto-Generate d Referral 02/17/2024 02/17/2025 1 1 Chief Complaint and Reason for Visit Chief Complaint Admit Date CVA August 17, 2024 7:1 8am stroke alert August 17, 2024 7:4 0am Reason for Visit Admit Date Acute cerebrovascular accident (CVA) Mar 2024 7:18am Carotid stenosis August 17, 2024 7:1 8am Tobacco abuse August 17, 2024 7:1 8am Chief Complaint Admit Date CVA August 17, 2024 7:1 8am stroke alert August 17, 2024 7:4 0am Cerebrovascular accident August 18 6:53am Chief Complaint Admit Date CVA August 17, 2024 7:1 8am stroke alert August 17, 2024 7:4 0am Cerebrovascular accident August 18 6:53am STROKE August 18, 2024 3:2 2pm STROKE August 19, 2024 8:0 7am STROKE August 20, 2024 6:0 9pm STROKE August 23, 2024 11: 22am STROKE August 24, 2024 12: 33pm STROKE August 26, 2024 9:3 0am STROKE August 27, 2024 12: 32pm STROKE August 31, 2024 9:4 5am Reason for Visit Admit Date Acute cerebrovascular accident (CVA) [facility] 2024 7:18am Carotid stenosis August 17, 2024 7:1 8am Tobacco abuse August 17, 2024 7:1 8am Ataxia August 18, 2024 3:2 2pm Cognitive dysfunction August 18, 2024 3 :22pm Dementia with behavioral disturbance [facility] 2024 3:22pm Depression August 18, 2024 3:2 2pm Facial droop August 18, 2024 3:2 2pm GERD (gastroesophageal reflux disease) [facility] 2024 3:22pm History of alcoholism August 18, 2024 3 :22pm Normochromic normocytic anemia August 3:22pm Oropharyngeal dysphagia August 18, 2024 3:22pm Paresthesias August 18, 2024 3:2 2pm Physical debility August 18, 2024 3:2 2pm Psychomotor agitation August 18, 2024 3 :22pm Right hemiparesis August 18, 2024 3:2 2pm 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 3:22pm AAA (abdominal aortic aneurysm) without rupture August 18, 2024 3:22pm Aneurysm of right subclavian artery [facility] 2024 3:22pm COPD (chronic obstructive pulmonary dise ase) August 18, 2024 3:22pm Diverticulosis August 18, 2024 3:2 2pm History of depression August 18, 2024 3 :22pm HTN (hypertension) August 18, 2024 3:2 2pm Hyperlipidemia August 18, 2024 3:2 2pm Nonobstructive atherosclerosis of virgen ry artery August 18, 2024 3:22pm Prothrombin gene mutation August 18 3:22pm Thoracic aortic aneurysm (TAA) August 3:22pm Acute cerebrovascular accident (CVA) [facility] 2024 3:22pm Hypotension August 18, 2024 3:2 2pm Carotid stenosis August 18, 2024 3:2 2pm Tobacco abuse August 18, 2024 3:2 2pm Chief Complaint Admit Date CVA August 17, 2024 7:1 8am stroke alert August 17, 2024 7:4 0am Cerebrovascular accident August 18 6:53am STROKE August 18, 2024 3:2 2pm STROKE August 19, 2024 8:0 7am STROKE August 20, 2024 6:0 9pm STROKE August 23, 2024 11: 22am STROKE August 24, 2024 12: 33pm STROKE August 26, 2024 9:3 0am STROKE August 27, 2024 12: 32pm STROKE August 31, 2024 9:4 5am AFTER HOSPITAL/STROKE September 13, 2024 8: 17am EORDER September 13, 2024 9:48 am Reason for Visit Admit Date Acute cerebrovascular accident (CVA) [facility] 2024 7:18am Carotid stenosis August 17, 2024 7:1 8am Tobacco abuse August 17, 2024 7:1 8am Ataxia August 18, 2024 3:2 2pm Cognitive dysfunction August 18, 2024 3 :22pm Dementia with behavioral disturbance [facility] 2024 3:22pm Depression August 18, 2024 3:2 2pm Facial droop August 18, 2024 3:2 2pm Hyperlipidemia August 18, 2024 3:2 2pm Normochromic normocytic anemia August 3:22pm Oropharyngeal dysphagia August 18, 2024 3:22pm Paresthesias August 18, 2024 3:2 2pm Physical debility August 18, 2024 3:2 2pm Psychomotor agitation August 18, 2024 3 :22pm Right hemiparesis August 18, 2024 3:2 2pm 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 3:22pm Prothrombin gene mutation August 18 3:22pm Acute cerebrovascular accident (CVA) [facility] 2024 3:22pm Hypotension August 18, 2024 3:2 2pm AAA (abdominal aortic aneurysm) without rupture August 18, 2024 3:22pm Aneurysm of right subclavian artery [facility] 2024 3:22pm Carotid stenosis August 18, 2024 3:2 2pm COPD (chronic obstructive pulmonary dise ase) August 18, 2024 3:22pm Diverticulosis August 18, 2024 3:2 2pm GERD (gastroesophageal reflux disease) [facility] 2024 3:22pm History of alcoholism August 18, 2024 3 :22pm History of depression August 18, 2024 3 :22pm HTN (hypertension) August 18, 2024 3:2 2pm Nonobstructive atherosclerosis of virgen ry artery August 18, 2024 3:22pm Thoracic aortic aneurysm (TAA) August 3:22pm Tobacco abuse August 18, 2024 3:2 2pm Ataxia September 13, 2024 8:17 am Depression September 13, 2024 8:17 am Facial droop September 13, 2024 8:17 am Hyperlipidemia September 13, 2024 8:17 am Mild cognitive impairment September 13 8:17am Paresthesias September 13, 2024 8:17 am Stroke September 13, 2024 8:17 am Prothrombin gene mutation September 13 8:17am Chief Complaint Admit Date CVA August 17, 2024 7:1 8am stroke alert August 17, 2024 7:4 0am Cerebrovascular accident August 18 6:53am STROKE August 18, 2024 3:2 2pm STROKE August 19, 2024 8:0 7am STROKE August 20, 2024 6:0 9pm STROKE August 23, 2024 11: 22am STROKE August 24, 2024 12: 33pm STROKE August 26, 2024 9:3 0am STROKE August 27, 2024 12: 32pm STROKE August 31, 2024 9:4 5am AFTER HOSPITAL/STROKE September 13, 2024 8: 17am EORDER September 13, 2024 9:48 am Hospitalization FU post stroke October 19, 2024 10:47am Chief Complaint Admit Date CVA August 17, 2024 7:1 8am stroke alert August 17, 2024 7:4 0am Cerebrovascular accident August 18 6:53am STROKE August 18, 2024 3:2 2pm STROKE August 19, 2024 8:0 7am STROKE August 20, 2024 6:0 9pm STROKE August 23, 2024 11: 22am STROKE August 24, 2024 12: 33pm STROKE August 26, 2024 9:3 0am STROKE August 27, 2024 12: 32pm STROKE August 31, 2024 9:4 5am AFTER HOSPITAL/STROKE September 13, 2024 8: 17am EORDER September 13, 2024 9:48 am Hospitalization FU post stroke October 19, 2024 10:47am INT LAB ORDER October 19, 2024 11:50 am Chief Complaint Admit Date CVA August 17, 2024 7:1 8am stroke alert August 17, 2024 7:4 0am Cerebrovascular accident August 18 6:53am STROKE August 18, 2024 3:2 2pm STROKE August 19, 2024 8:0 7am STROKE August 20, 2024 6:0 9pm STROKE August 23, 2024 11: 22am STROKE August 24, 2024 12: 33pm STROKE August 26, 2024 9:3 0am STROKE August 27, 2024 12: 32pm STROKE August 31, 2024 9:4 5am AFTER HOSPITAL/STROKE September 13, 2024 8: 17am EORDER September 13, 2024 9:48 am STROKE September 18, 2024 12: 59pm Hospitalization FU post stroke October 19, 2024 10:47am INT LAB ORDER October 19, 2024 11:50 am AAA November 04, 2024 8:47a m Reason for Visit Admit Date Acute cerebrovascular accident (CVA) [facility] 2024 7:18am Carotid stenosis August 17, 2024 7:1 8am Tobacco abuse August 17, 2024 7:1 8am AAA (abdominal aortic aneurysm) without rupture August 18, 2024 3:22pm Aneurysm of right subclavian artery [facility] 2024 3:22pm Ataxia August 18, 2024 3:2 2pm Cognitive dysfunction August 18, 2024 3 :22pm Dementia with behavioral disturbance [facility] 2024 3:22pm Depression August 18, 2024 3:2 2pm Facial droop August 18, 2024 3:2 2pm Hyperlipidemia August 18, 2024 3:2 2pm Normochromic normocytic anemia August 3:22pm Oropharyngeal dysphagia August 18, 2024 3:22pm Paresthesias August 18, 2024 3:2 2pm Physical debility August 18, 2024 3:2 2pm Psychomotor agitation August 18, 2024 3 :22pm Right hemiparesis August 18, 2024 3:2 2pm Thoracic aortic aneurysm (TAA) August 3:22pm 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 3:22pm Prothrombin gene mutation August 18 3:22pm Acute cerebrovascular accident (CVA) Mar 2024 3:22pm Hypotension August 18, 2024 3:2 2pm Carotid stenosis August 18, 2024 3:2 2pm COPD (chronic obstructive pulmonary dise ase) August 18, 2024 3:22pm Diverticulosis August 18, 2024 3:2 2pm GERD (gastroesophageal reflux disease) [facility] 2024 3:22pm History of alcoholism August 18, 2024 3 :22pm History of depression August 18, 2024 3 :22pm HTN (hypertension) August 18, 2024 3:2 2pm Nonobstructive atherosclerosis of virgen ry artery August 18, 2024 3:22pm Tobacco abuse August 18, 2024 3:2 2pm Ataxia September 13, 2024 8:17 am Depression September 13, 2024 8:17 am Facial droop September 13, 2024 8:17 am Hyperlipidemia September 13, 2024 8:17 am Mild cognitive impairment September 13 8:17am Paresthesias September 13, 2024 8:17 am Stroke September 13, 2024 8:17 am Prothrombin gene mutation September 13 8:17am AAA (abdominal aortic aneurysm) without rupture October 19, 2024 10:47am Aneurysm of right subclavian artery October 19, 2024 10:47am Carotid artery disease October 19, 2024 10 :47am Thoracic aortic aneurysm (TAA) October 19, 2024 10:47am Additional Source Comments (unrecognized sect ion and content) No Status Records FoundNo Status Records FoundNo Status Records Found INFORMATION SOURCE (unrecogn ized section and content) DATE CREATED AUTHOR 11/28/2017 [facility] Niya Tolliver DATE CREATED AUTHOR AUTHOR'S ORGANIZ ATION 09/22/2024 [facility] DATE CREATED AUTHOR AUTHOR'S ORGANIZ ATION 11/16/2024 [facility] Source Comments (unrecognize d section and content) In the event this informatio n is protected by the Federal Confidentiality of Alcohol and Drug Abuse Patient Records regulations: The Federal rules restrict any use of the information to criminally investigate or prosecute any alcohol or drug abuse patient.[facility] [place] HospitalIn the event this information is protected by the Federal Confidentiality of Alcohol and Drug Abuse Patient Records regulations: The Federal rules restrict any use of the information to criminally investigate or prosecute any alcohol or drug abuse patient.[facility] [place] HospitalIn the event this information is protected by the Federal Confidentiality of Alcohol and Drug Abuse Patient Records regulations: The Federal rules restrict any use of the information to criminally investigate or prosecute any alcohol or drug abuse patient.[facility] [place] HospitalIn the event this information is protected by the Federal Confidentiality of Alcohol and Drug Abuse Patient Records regulations: The Federal rules restrict any use of the information to criminally investigate or prosecute any alcohol or drug abuse patient.[facility] [place] HospitalIn the event this information is protected by the Federal Confidentiality of Alcohol and Drug Abuse Patient Records regulations: The Federal rules restrict any use of the information to criminally investigate or prosecute any alcohol or drug abuse patient.[facility] [place] HospitalIn the event this information is protected by the Federal Confidentiality of Alcohol and Drug Abuse Patient Records regulations: The Federal rules restrict any use of the information to criminally investigate or prosecute any alcohol or drug abuse patient.[facility] [place] HospitalIn the event this information is protected by the Federal Confidentiality of Alcohol and Drug Abuse Patient Records regulations: The Federal rules restrict any use of the information to criminally investigate or prosecute any alcohol or drug abuse patient.[facility] [place] HospitalIn the event this information is protected by the Federal Confidentiality of Alcohol and Drug Abuse Patient Records regulations: The Federal rules restrict any use of the information to criminally investigate or prosecute any alcohol or drug abuse patient.[facility] [place] HospitalIn the event this information is protected by the Federal Confidentiality of Alcohol and Drug Abuse Patient Records regulations: The Federal rules restrict any use of the information to criminally investigate or prosecute any alcohol or drug abuse patient.[facility] [place] HospitalIn the event this information is protected by the Federal Confidentiality of Alcohol and Drug Abuse Patient Records regulations: The Federal rules restrict any use of the information to criminally investigate or prosecute any alcohol or drug abuse patient.[facility] [place] HospitalIn the event this information is protected by the Federal Confidentiality of Alcohol and Drug Abuse Patient Records regulations: The Federal rules restrict any use of the information to criminally investigate or prosecute any alcohol or drug abuse patient.[facility] [place] HospitalIn the event this information is protected by the Federal Confidentiality of Alcohol and Drug Abuse Patient Records regulations: The Federal rules restrict any use of the information to criminally investigate or prosecute any alcohol or drug abuse patient.[facility] [place] HospitalIn the event this information is protected by the Federal Confidentiality of Alcohol and Drug Abuse Patient Records regulations: The Federal rules restrict any use of the information to criminally investigate or prosecute any alcohol or drug abuse patient.[facility] [place] HospitalIn the event this information is protected by the Federal Confidentiality of Alcohol and Drug Abuse Patient Records regulations: The Federal rules restrict any use of the information to criminally investigate or prosecute any alcohol or drug abuse patient.[facility] [place] HospitalIn the event this information is protected by the Federal Confidentiality of Alcohol and Drug Abuse Patient Records regulations: The Federal rules restrict any use of the information to criminally investigate or prosecute any alcohol or drug abuse patient.[facility] [place] HospitalIn the event this information is protected by the Federal Confidentiality of Alcohol and Drug Abuse Patient Records regulations: The Federal rules restrict any use of the information to criminally investigate or prosecute any alcohol or drug abuse patient.[facility] [place] HospitalIn the event this information is protected by the Federal Confidentiality of Alcohol and Drug Abuse Patient Records regulations: The Federal rules restrict any use of the information to criminally investigate or prosecute any alcohol or drug abuse patient.[facility] [place] HospitalIn the event this information is protected by the Federal Confidentiality of Alcohol and Drug Abuse Patient Records regulations: The Federal rules restrict any use of the information to criminally investigate or prosecute any alcohol or drug abuse patient.[facility] [place] HospitalIn the event this information is protected by the Federal Confidentiality of Alcohol and Drug Abuse Patient Records regulations: The Federal rules restrict any use of the information to criminally investigate or prosecute any alcohol or drug abuse patient.[facility] [place] HospitalIn the event this information is protected by the Federal Confidentiality of Alcohol and Drug Abuse Patient Records regulations: The Federal rules restrict any use of the information to criminally investigate or prosecute any alcohol or drug abuse patient.[facility] [place] HospitalIn the event this information is protected by the Federal Confidentiality of Alcohol and Drug Abuse Patient Records regulations: The Federal rules restrict any use of the information to criminally investigate or prosecute any alcohol or drug abuse patient.[facility] [place] HospitalIn the event this information is protected by the Federal Confidentiality of Alcohol and Drug Abuse Patient Records regulations: The Federal rules restrict any use of the information to criminally investigate or prosecute any alcohol or drug abuse patient.[facility] [place] HospitalIn the event this information is protected by the Federal Confidentiality of Alcohol and Drug Abuse Patient Records regulations: The Federal rules restrict any use of the information to criminally investigate or prosecute any alcohol or drug abuse patient.[facility] [place] HospitalIn the event this information is protected by the Federal Confidentiality of Alcohol and Drug Abuse Patient Records regulations: The Federal rules restrict any use of the information to criminally investigate or prosecute any alcohol or drug abuse patient.[facility] [place] HospitalIn the event this information is protected by the Federal Confidentiality of Alcohol and Drug Abuse Patient Records regulations: The Federal rules restrict any use of the information to criminally investigate or prosecute any alcohol or drug abuse patient.[facility] [place] HospitalIn the event this information is protected by the Federal Confidentiality of Alcohol and Drug Abuse Patient Records regulations: The Federal rules restrict any use of the information to criminally investigate or prosecute any alcohol or drug abuse patient.[facility] [place] HospitalIn the event this information is protected by the Federal Confidentiality of Alcohol and Drug Abuse Patient Records regulations: The Federal rules restrict any use of the information to criminally investigate or prosecute any alcohol or drug abuse patient.[facility] [place] HospitalIn the event this information is protected by the Federal Confidentiality of Alcohol and Drug Abuse Patient Records regulations: The Federal rules restrict any use of the information to criminally investigate or prosecute any alcohol or drug abuse patient.[facility] the event this information is protected by the Federal Confidentiality of Alcohol and Drug Abuse Patient Records regulations: The Federal rules restrict any use of the information to criminally investigate or prosecute any alcohol or drug abuse patient.[facility] [place] HospitalIn the event this information is protected by the Federal Confidentiality of Alcohol and Drug Abuse Patient Records regulations: The Federal rules restrict any use of the information to criminally investigate or prosecute any alcohol or drug abuse patient.[facility] [place] HospitalIn the event this information is protected by the Federal Confidentiality of Alcohol and Drug Abuse Patient Records regulations: The Federal rules restrict any use of the information to criminally investigate or prosecute any alcohol or drug abuse patient.[facility] [place] HospitalIn the event this information is protected by the Federal Confidentiality of Alcohol and Drug Abuse Patient Records regulations: The Federal rules restrict any use of the information to criminally investigate or prosecute any alcohol or drug abuse patient.[facility] [place] HospitalIn the event this information is protected by the Federal Confidentiality of Alcohol and Drug Abuse Patient Records regulations: The Federal rules restrict any use of the information to criminally investigate or prosecute any alcohol or drug abuse patient.[facility] [place] HospitalIn the event this information is protected by the Federal Confidentiality of Alcohol and Drug Abuse Patient Records regulations: The Federal rules restrict any use of the information to criminally investigate or prosecute any alcohol or drug abuse patient.[facility] [place] HospitalIn the event this information is protected by the Federal Confidentiality of Alcohol and Drug Abuse Patient Records regulations: The Federal rules restrict any use of the information to criminally investigate or prosecute any alcohol or drug abuse patient.[facility] [place] HospitalIn the event this information is protected by the Federal Confidentiality of Alcohol and Drug Abuse Patient Records regulations: The Federal rules restrict any use of the information to criminally investigate or prosecute any alcohol or drug abuse patient.[facility] HospitalIn the event this information is protected by the Federal Confidentiality of Alcohol and Drug Abuse Patient Records regulations: The Federal rules restrict any use of the information to criminally investigate or prosecute any alcohol or drug abuse patient.[facility] HospitalIn the event this information is protected by the Federal Confidentiality of Alcohol and Drug Abuse Patient Records regulations: The Federal rules restrict any use of the information to criminally investigate or prosecute any alcohol or drug abuse patient.[facility] HospitalIn the event this information is protected by the Federal Confidentiality of Alcohol and Drug Abuse Patient Records regulations: The Federal rules restrict any use of the information to criminally investigate or prosecute any alcohol or drug abuse patient.[facility] HospitalIn the event this information is protected by the Federal Confidentiality of Alcohol and Drug Abuse Patient Records regulations: The Federal rules restrict any use of the information to criminally investigate or prosecute any alcohol or drug abuse patient.[facility] HospitalIn the event this information is protected by the Federal Confidentiality of Alcohol and Drug Abuse Patient Records regulations: The Federal rules restrict any use of the information to criminally investigate or prosecute any alcohol or drug abuse patient.[facility] HospitalIn the event this information is protected by the Federal Confidentiality of Alcohol and Drug Abuse Patient Records regulations: The Federal rules restrict any use of the information to criminally investigate or prosecute any alcohol or drug abuse patient.[facility] HospitalIn the event this information is protected by the Federal Confidentiality of Alcohol and Drug Abuse Patient Records regulations: The Federal rules restrict any use of the information to criminally investigate or prosecute any alcohol or drug abuse patient.[facility] HospitalIn the event this information is protected by the Federal Confidentiality of Alcohol and Drug Abuse Patient Records regulations: The Federal rules restrict any use of the information to criminally investigate or prosecute any alcohol or drug abuse patient.[facility] HospitalIn the event this information is protected by the Federal Confidentiality of Alcohol and Drug Abuse Patient Records regulations: The Federal rules restrict any use of the information to criminally investigate or prosecute any alcohol or drug abuse patient.[facility] HospitalIn the event this information is protected by the Federal Confidentiality of Alcohol and Drug Abuse Patient Records regulations: The Federal rules restrict any use of the information to criminally investigate or prosecute any alcohol or drug abuse patient.[facility] HospitalIn the event this information is protected by the Federal Confidentiality of Alcohol and Drug Abuse Patient Records regulations: The Federal rules restrict any use of the information to criminally investigate or prosecute any alcohol or drug abuse patient.[facility] HospitalIn the event this information is protected by the Federal Confidentiality of Alcohol and Drug Abuse Patient Records regulations: The Federal rules restrict any use of the information to criminally investigate or prosecute any alcohol or drug abuse patient.[facility] HospitalIn the event this information is protected by the Federal Confidentiality of Alcohol and Drug Abuse Patient Records regulations: The Federal rules restrict any use of the information to criminally investigate or prosecute any alcohol or drug abuse patient.[facility] HospitalIn the event this information is protected by the Federal Confidentiality of Alcohol and Drug Abuse Patient Records regulations: The Federal rules restrict any use of the information to criminally investigate or prosecute any alcohol or drug abuse patient.[facility] HospitalIn the event this information is protected by the Federal Confidentiality of Alcohol and Drug Abuse Patient Records regulations: The Federal rules restrict any use of the information to criminally investigate or prosecute any alcohol or drug abuse patient.[facility] Reason for Visit (unrecogniz ed section and content) Reason Comments Refill Request Reason Comments Orders creatintine- stat Reason Comments Established Patient 6 month follow up-re fills Specialty Diagnoses / Procedures Referred By Contac t Referred To Contact CT IMAGING Diagnoses Thoracic aortic aneurysm without rupture (HCC) Aneurysm of infrarenal abdominal aorta (HCC) Procedures CTA ABD/PEL W IVCON CT ANGIO ABD&PLVIS CNTRST MTRL W/WO CNTRST IMGES Sera Castillo MD [address] [place] [address] Ct Imaging Referral ID Status Reason Start Date Expiration Date V isits Requested Visits Authorized [id number] Closed Auto-Generate d Referral 01/07/2022 02/06/2023 1 [address] Specialty Diagnoses / Procedures Referred By Contac t Referred To Contact CT IMAGING Diagnoses Atherosclerosis of aorta (HCC) Procedures CTA CHEST (NONGATED) W IVCON CT ANGIOGRAPHY CHEST W/CONTRAST/NONCONTRAST Sera Castillo MD [address] [place] [address] Ct Imaging Referral ID Status Reason Start Date Expiration Date V isits Requested Visits Authorized [id number] Closed Auto-Generate d Referral 01/07/2022 02/06/2023 1 1 Reason Comments Appointment Reason Comments Insurance Inquiry Reason Comments Established Patient Specialty Diagnoses / Procedures Referred By Contac t Referred To Contact Vascular Surgery Diagnoses Aneurysm of infrarenal abdominal aorta (HCC) Thoracic aortic aneurysm without rupture (HCC) Procedures CONSULT TO VASCULAR SURGERY OFFICE/OUTPATIENT NEW HIGH MDM 60-74 MINUTES Sera Castillo MD [address] [place] [address] Referral ID Status Reason Start Date Expiration Date V isits Requested Visits Authorized [id number] Closed PCP Requested Referral 01/08/2022 01/08/2023 1 1 Reason Comments ED Follow-up chest pain- tx with omeprazole for acid reflux Reason Comments Pre-Op Teaching Reason Comments Consult Reason Comments Same Day Appointment growth on back x 10 years Reason Comments Consult Growth on left scapu la Specialty Diagnoses / Procedures Referred By Contac t Referred To Contact General Surgery Diagnoses Deformity of scapula Procedures CONSULT TO GENERAL SURGERY OFFICE/OUTPATIENT [facility] HIGH MDM 60-74 MINUTES Sera Castillo MD [address] [place] [address] Referral ID Status Reason Start Date Expiration Date V isits Requested Visits Authorized [id number] Closed PCP Requested Referral 09/04/2022 09/04/2023 1 1 Reason Comments Consult Specialty Diagnoses / Procedures Referred By Contac t Referred To Contact CT IMAGING Diagnoses Aneurysm of ascending aorta without rupture (HCC) Disorder of artery or arteriole (HCC) Procedures CTA CHEST (GATED) W IVCON CT ANGIOGRAPHY CHEST W/CONTRAST/NONCONTRAST Mikayla Puentes APRN.WHITEPRINTING MACHINE OPERATOR [address] [place] [address] Ct Imaging Referral ID Status Reason Start Date Expiration Date V isits Requested Visits Authorized [id number] Closed Auto-Generate d Referral 09/12/2022 10/12/2023 1 1 Reason Comments Recheck 6 month follow up Reason Comments Radiology US Specialty Diagnoses / Procedures Referred By Contac t Referred To Contact US IMAGING Diagnoses Deformity of scapula Procedures US SOFT TISSUE ABDOMEN US ABDOMINAL REAL TIME W/IMAGE LIMITED Alessio Fields MD [address] [place] [address] Us Imaging [place] [address] Referral ID Status Reason Start Date Expiration Date V isits Requested Visits Authorized [id number] Closed Auto-Generate d Referral 09/10/2022 10/10/2023 1 1 Reason Comments Medication Question Reason Comments F/U 6 months Reason Onset Date Comments Refill Request 11/27/2023 Specialty Diagnoses / Procedures Referred By Contac t Referred To Contact CT IMAGING Diagnoses Disorder of artery or arteriole (HCC) Procedures CTA CHEST (GATED) W IVCON CT ANGIOGRAPHY CHEST W/CONTRAST/NONCONTRAST Enzo Nelson MD [address] [place] [address] [place] [address] Referral ID Status Reason Start Date Expiration Date V isits Requested Visits Authorized [id number] Closed Auto-Generate d Referral 02/17/2024 02/17/2025 1 1 Reason Comments Follow Up Reason Onset Date Comments Refill Request 05/07/2024 Reason Onset Date Comments Population Health Navigation Outreach 07/06/2024 Rosario/Workbench/ACO Reason Comments Physical Dizziness, fell when got out of chair at home Reason Comments Orders Geriatric consult Reason Onset Date Comments Refill Request 08/16/2024 Reason Comments Orders Reason Onset Date Comments Transition Of Care 09/01/2024 Reason Comments Home Health Orders Correction Plan of Care Reason Comments Hospital F/U [facility] stroke feeling b ashleigh Reason Onset Date Comments Transition Of Care 09/08/2024 Reason Comments PT Delay in Care Reason Comments Recheck [place] [employer] paperwork Care Teams (unrecognized sec tion and content) Team Status: Active Member Role Status Dates Dr. Sera Castillo MD Primary Care Provider Active Team Status: Inactive Member Role Status Dates Dr. Sera Castillo MD Primary Care Provider Active Start: August 17, 2024 End: August 18, 2024 Dr. Ray Dennis DO Emergency Provider Active Start: August 17, 2024 End: August 18, 2024 Dr. Enzo Mann DO Admit Provider Active Star t: August 17, 2024 End: August 18, 2024 Dr. Enzo Mann DO Attending Provider Active Start: August 17, 2024 End: August 18, 2024 Alec Goyal MD Other Provider Active Start: [facility] 2024 End: August 18, 2024 Dr. Beka Harmon MD Other Provider Active Start: August 17, 2024 End: August 18, 2024 Pavithra Rodriguez MD Other Provider Active Start : August 17, 2024 End: August 18, 2024 Dr. Nissa Daily DO Other Provider Active St art: August 17, 2024 End: August 18, 2024 Dr. Jocelyn Farley MD Other Provider Active Start: August 17, 2024 End: August 18, 2024 Dr. Riley Justin MD Other Provider Active Sta rt: August 17, 2024 End: August 18, 2024 Dr. Halina Marie MD Other Provider Active Start : August 17, 2024 End: August 18, 2024 Dr. Devan Hung MD Other Provider Active Start: August 17, 2024 End: August 18, 2024 Dr. Almas Huerta MD Other Provider Active Start : August 17, 2024 End: August 18, 2024 Dr. Wilton Curiel MD Other Provider Active Sta rt: August 17, 2024 End: August 18, 2024 Yaneth Mcelroy MD Other Provider Active Start : August 17, 2024 End: August 18, 2024 Dr. Robert Quintero MD Other Provider Active St art: August 17, 2024 End: August 18, 2024 Dr. Maria T Culp MD Other Provider Active Start : August 17, 2024 End: August 18, 2024 Dr. Matthew Carolina MD Other Provider Active Sta rt: August 17, 2024 End: August 18, 2024 Dr. Cisco Boyle MD Other Provider Active Start: August 17, 2024 End: August 18, 2024 Dr. Jame Vogt MD Other Provider Active St art: August 17, 2024 End: August 18, 2024 Dr. Danny Carrillo MD Other Provider Active Star t: August 17, 2024 End: August 18, 2024 Dr. Clovis Beltre MD Other Provider Active St art: August 17, 2024 End: August 18, 2024 Dr. Linda Lemon MD Other Provider Active Start: August 17, 2024 End: August 18, 2024 Deon Sky MD Other Provider Active Start: August 17, 2024 End: August 18, 2024 Team Status: Active Member Role Status Dates Dr. Sera Castillo MD Primary Care Provider Active Start: August 17, 2024 Dr. Ray Dennis DO Emergency Provider Active Start: August 17, 2024 Dr. Enzo Mann DO Attending Provider Active Start: August 17, 2024 Team Status: Active Member Role Status Dates Dr. Sera Castillo MD Primary Care Provider Active Start: August 17, 2024 Dr. Lokesh Morales MD Attending Provider Activ e Start: August 17, 2024 Team Status: Active Member Role Status Dates Dr. Sera Castillo MD Primary Care Provider Active Start: August 17, 2024 Dr. Enzo Marina MD Attending Provider Active S tart: August 17, 2024 Team Status: Active Member Role Status Dates Dr. Sera Castillo MD Primary Care Provider Active Start: August 18, 2024 Dr. Ray Dennis DO Emergency Provider Active Start: August 18, 2024 Dr. Enzo Mann DO Admit Provider Active Star t: August 18, 2024 Dr. Enzo Mann DO Attending Provider Active Start: August 18, 2024 Dr. Enzo Mann DO Other Provider Active Star t: August 18, 2024 Alec Goyal MD Other Provider Active Start: [facility] [address]24 Dr. Beka Harmon MD Other Provider Active Start: August 18, 2024 Pavithra Rodriugez MD Other Provider Active Start : August 18, 2024 Dr. Nissa Daily DO Other Provider Active St art: August 18, 2024 Dr. Jocelyn Farley MD Other Provider Active Start: August 18, 2024 Dr. Riley Justin MD Other Provider Active Sta rt: August 18, 2024 Dr. Halina Marie MD Other Provider Active Start : August 18, 2024 Dr. Devan Hung MD Other Provider Active Start: August 18, 2024 Dr. Almas Huerta MD Other Provider Active Start : August 18, 2024 Dr. Wilton Curiel MD Other Provider Active Sta rt: August 18, 2024 Yaneth Mcelroy MD Other Provider Active Start : August 18, 2024 Dr. Robert Quintero MD Other Provider Active St art: August 18, 2024 Dr. Maria T Culp MD Other Provider Active Start : August 18, 2024 Dr. Matthew Carolina MD Other Provider Active Sta rt: August 18, 2024 Dr. Cisco Boyle MD Other Provider Active Start: August 18, 2024 Dr. Jame Vogt MD Other Provider Active St art: August 18, 2024 Dr. Danny Carrillo MD Other Provider Active Star t: August 18, 2024 Dr. Clovis Beltre MD Other Provider Active St art: August 18, 2024 Dr. Linda Lemon MD Other Provider Active Start: August 18, 2024 Deon Sky MD Other Provider Active Start: August 18, 2024 Field Sales Consultant Relationship Specialty Start Date End Date Sera Castillo MD [address] [place] [address] PCP - General Internal Medicine 06/10/18 Jason, Chelsea S [address] [place] [address] Physician Cardiology 09/07/18 Field Sales Consultant Relationship Specialty Start Date End Date Sera Castillo MD [address] [facility] [place] [address] PCP - General Internal Medicine 06/10/18 Jason, Chelsea S [address] [place] [address] Physician Cardiology 09/07/18 Field Sales Consultant Relationship Specialty Start Date End Date Sera Castillo MD [address] [facility] [place] [address] PCP - General Internal Medicine 06/10/18 Jason, Toño S [address] [place] [address] Physician Cardiology 09/07/18 Field Sales Consultant Relationship Specialty Start Date End Date Sera Castillo MD [address] [place] [address] PCP - General Internal Medicine 06/10/18 Jason, Toño S [address] [place] [address] Physician Cardiology 09/07/18 Field Sales Consultant Relationship Specialty Start Date End Date Sera Castillo MD [address] [facility] [place] [address] PCP - General Internal Medicine 06/10/18 Jason, Toño S [address] [place] [address] Physician Cardiology 09/07/18 Field Sales Consultant Relationship Specialty Start Date End Date Sera Castillo MD [address] [place] [address] PCP - General Internal Medicine 06/10/18 Jason, Toño S [address] [place] [address] Physician Cardiology 09/07/18 Field Sales Consultant Relationship Specialty Start Date End Date Sera Castillo MD [address] [place] [address] PCP - General Internal Medicine 06/10/18 Jason, Chelsea S [address] [place] [address] Physician Cardiology 09/07/18 Field Sales Consultant Relationship Specialty Start Date End Date Sera Castillo MD [address] [place] [address] PCP - General Internal Medicine 06/10/18 Jason, Toño S [address] [place] [address] Physician Cardiology 09/07/18 Field Sales Consultant Relationship Specialty Start Date End Date Sera Castillo MD [address] [place] [address] PCP - General Internal Medicine 06/10/18 Jason, Toño S [address] [place] [address] Physician Cardiology 09/07/18 Field Sales Consultant Relationship Specialty Start Date End Date Sera Castillo MD [address] [facility] [place] [address] PCP - General Internal Medicine 06/10/18 Jason, Toño S [address] [place] [address] Physician Cardiology 09/07/18 Field Sales Consultant Relationship Specialty Start Date End Date Sera Castillo MD [address] [facility] [place] [address] PCP - General Internal Medicine 06/10/18 Jason, Chelsea S [address] [place] [address] Physician Cardiology 09/07/18 Field Sales Consultant Relationship Specialty Start Date End Date Sera Castillo MD [address] [facility] [place] [address] PCP - General Internal Medicine 06/10/18 Jason, Chelsea S [address] [place] [address] Physician Cardiology 09/07/18 Field Sales Consultant Relationship Specialty Start Date End Date Sera Castillo MD [address] [facility] [place] [address] PCP - General Internal Medicine 06/10/18 Jason, Toño S [address] [place] [address] Physician Cardiology 09/07/18 Field Sales Consultant Relationship Specialty Start Date End Date Sera Castlilo MD [address] [facility] [place] [address] PCP - General Internal Medicine 06/10/18 Jason, Chelsea S [address] [place] [address] Physician Cardiology 09/07/18 Field Sales Consultant Relationship Specialty Start Date End Date Sera Castillo MD [address] [facility] [place] [place] [address] PCP - General Internal Medicine 06/10/18 Jason, Chelsea S [address] [place] [address] Physician Cardiology 09/07/18 Field Sales Consultant Relationship Specialty Start Date End Date Sera Castillo MD [address] [facility] [place] [address] PCP - General Internal Medicine 06/10/18 Jason, Toño S [address] [place] [address], [place] [address] Physician Cardiology 09/07/18 Field Sales Consultant Relationship Specialty Start Date End Date Sera Castillo MD [address] [facility] [place] [address] PCP - General Internal Medicine 06/10/18 Jason, Toño S [address] [place] [address] Physician Cardiology 09/07/18 Field Sales Consultant Relationship Specialty Start Date End Date Sera Castillo MD [address] [facility] [place] [address] PCP - General Internal Medicine 06/10/18 Jason, Toño S [address] [address] Physician Cardiology 09/07/18 Field Sales Consultant Relationship Specialty Start Date End Date Sera Castillo MD [address] [facility] [place] [address] PCP - General Internal Medicine 06/10/18 Toño Gomez MD [address] [place] [address] Physician Cardiology 09/07/18 Field Sales Consultant Relationship Specialty Start Date End Date Sera Castillo MD [address] [facility] [place] [address] PCP - General Internal Medicine 06/10/18 Toño Gomez MD [address] [place] [address] Physician Cardiology 09/07/18 Field Sales Consultant Relationship Specialty Start Date End Date Sera Castillo MD [address] [facility] [place] [address] PCP - General Internal Medicine 06/10/18 Toño Gomez MD [address] [place] [address] Physician Cardiology 09/07/18 Field Sales Consultant Relationship Specialty Start Date End Date Sera Castillo MD [address] [facility] [place] [address] PCP - General Internal Medicine 06/10/18 Toño Gomez MD [address] [place] [address] Physician Cardiology 09/07/18 Field Sales Consultant Relationship Specialty Start Date End Date Sera Castillo MD [address] [place] [address] PCP - General Internal Medicine 06/10/18 Toño Gomez MD [address] [place] [address] Physician Cardiology 09/07/18 Field Sales Consultant Relationship Specialty Start Date End Date Sera Castillo MD [address] [place] [address] PCP - General Internal Medicine 06/10/18 Toño Gomez MD [address] [place] [address] Physician Cardiology 09/07/18 Field Sales Consultant Relationship Specialty Start Date End Date Sera Castillo MD [address] [place] [address] PCP - General Internal Medicine 06/10/18 Toño Gomez MD [address] [address] Physician Cardiology 09/07/18 Field Sales Consultant Relationship Specialty Start Date End Date Sera Castillo MD [address] [place] [address] PCP - General Internal Medicine 06/10/18 Toño Gomez MD [address] [place] [address] Physician Cardiology 09/07/18 Field Sales Consultant Relationship Specialty Start Date End Date Sera Castillo MD [address] [place] [address] PCP - General Internal Medicine 06/10/18 Toño Gomez MD [address] [place] [address] Physician Cardiology 09/07/18 Field Sales Consultant Relationship Specialty Start Date End Date Sera Castillo MD [address] [place] [address] PCP - General Internal Medicine 06/10/18 Toño Gomez MD [address] [address] Physician Cardiology 09/07/18 Field Sales Consultant Relationship Specialty Start Date End Date Sera Castillo MD [address] [place] [address] PCP - General Internal Medicine 06/10/18 Toño Gomez MD [address] [address] Physician Cardiology 09/07/18 Field Sales Consultant Relationship Specialty Start Date End Date Sera Castillo MD [address] [place] [address] PCP - General Internal Medicine 06/10/18 Toño Gomez MD [address] [address] Physician Cardiology 09/07/18 Field Sales Consultant Relationship Specialty Start Date End Date Sera Castillo MD [address] [place] [address] PCP - General Internal Medicine 06/10/18 Toño Gomez MD [address] [place] [address] Physician Cardiology 09/07/18 Katie Bruno PA-C [address] [place] [address] [employer] Contractor Family Medicine 05/16/24 Mari Mcclelland APRN.COMMERCIAL FOOD INSTRUCTOR [address] [facility] [address] Brickmason Contractor Internal Medicine 05/16/24 She Arshad PA-C [address] [place] [address] Brickmason Contractor Family Medicine 05/16/24 Field Sales Consultant Relationship Specialty Start Date End Date Sera Castillo MD [address] [place] [address] PCP - General Internal Medicine 06/10/18 Toño Gomez MD [address] [place] [address] Physician Cardiology 09/07/18 Katie Bruno PA-C [address] [place] [address] Brickmason Contractor Family Medicine 05/16/24 Mari Mcclelland APRN.COMMERCIAL FOOD INSTRUCTOR [address] [facility] [place] [address] Brickmason Contractor Internal Medicine 05/16/24 She Arshad PA-C [address] [place] [address] Brickmason Contractor Family Medicine 05/16/24 Field Sales Consultant Relationship Specialty Start Date End Date Sera Castillo MD [address] [place] [address] PCP - General Internal Medicine 06/10/18 Toño Gomez MD [address] [address] Physician Cardiology 09/07/18 Katie Bruno PA-C [address] [place] [address] Brickmason Contractor Family Medicine 05/16/24 Mari Mcclelland APRN.CNP [address] [place] [address] Brickmason Contractor Internal Medicine 05/16/24 She Arshad PA-C [address] [place] [address] Brickmason Contractor Family Medicine 05/16/24 Field Sales Consultant Relationship Specialty Start Date End Date Sera Castillo MD [address] [place] [address] PCP - General Internal Medicine 06/10/18 Toño Gomez MD [address] [address] Physician Cardiology 09/07/18 Katie Bruno PA-C [address] [place] [address] Brickmason Contractor Family Medicine 05/16/24 Mari Mcclelland APRN.COMMERCIAL FOOD INSTRUCTOR [address] [facility] [place] [address] Brickmason Contractor Internal Medicine 05/16/24 She Arshad PA-C [address] [facility] [place] [address] [facility] Family Medicine 05/16/24 Field Sales Consultant Relationship Specialty Start Date End Date Sera Castillo MD [address] [facility] [place] [address] PCP - General Internal Medicine 06/10/18 Toño Gomez MD [address] [place] [address] Physician Cardiology 09/07/18 Mari Mcclelland APRN.COMMERCIAL FOOD INSTRUCTOR [address] [facility] [place] [address] [facility] Internal Medicine 05/16/24 Chivo Lay, RN 09/01/24 Field Sales Consultant Relationship Specialty Start Date End Date Sera Castillo MD [address] [facility] [place] [address] PCP - General Internal Medicine 06/10/18 Toño Gomez MD [address] [place] [address] Physician Cardiology 09/07/18 Mari Mcclelland APRN.COMMERCIAL FOOD INSTRUCTOR [address] [facility] [place] [address] Brickmason Contractor Internal Medicine 05/16/24 Chivo Lay, RN 09/01/24 Team Status: Active Member Role Status Dates Dr. Sera Castillo MD Primary Care Provider Active Start: August 17, 2024 Dr. Ray Dennis DO Emergency Provider Active Start: August 17, 2024 Dr. Enzo Mann DO Admit Provider Active Star t: August 17, 2024 Dr. Enzo Mann DO Attending Provider Active Start: August 17, 2024 Alec Goyal MD Other Provider Active Start: [facility] 2024 Dr. Beka Harmon MD Other Provider Active Start: August 17, 2024 Pavithra Rodriguez MD Other Provider Active Start : August 17, 2024 Dr. Nissa Daily DO Other Provider Active St art: August 17, 2024 Dr. Jocelyn Farley MD Other Provider Active Start: August 17, 2024 Dr. Riley Justin MD Other Provider Active Sta rt: August 17, 2024 Dr. Halina Marie MD Other Provider Active Start : August 17, 2024 Dr. Devan Hung MD Other Provider Active Start: August 17, 2024 Dr. Almas Huerta MD Other Provider Active Start : August 17, 2024 Dr. Wilton Curiel MD Other Provider Active Sta rt: August 17, 2024 Yaneth Mcelroy MD Other Provider Active Start : August 17, 2024 Dr. Robert Quintero MD Other Provider Active St art: August 17, 2024 Dr. Maria T Culp MD Other Provider Active Start : August 17, 2024 Dr. Matthew Carolina MD Other Provider Active Sta rt: August 17, 2024 Dr. Cisco Boyle MD Other Provider Active Start: August 17, 2024 Dr. Jame Vogt MD Other Provider Active St art: August 17, 2024 Dr. Danyn Carrillo MD Other Provider Active Star t: August 17, 2024 Dr. Clovis Beltre MD Other Provider Active St art: August 17, 2024 Dr. Linda Lemon MD Other Provider Active Start: August 17, 2024 Deon Sky MD Other Provider Active Start: August 17, 2024 Team Status: Active Member Role Status Dates Dr. Sera Castillo MD Primary Care Provider Active Start: August 17, 2024 Dr. Enzo Marina MD Attending Provider Active S tart: August 17, 2024 Dr. Enzo Mann DO Referring Provider Active Start: August 17, 2024 Team Status: Inactive Member Role Status Dates Dr. Sera Castillo MD Primary Care Provider Active Start: August 18, 2024 End: August 31, 2024 Dr. Elen Muñoz DO Admit Provider Active Start: August 18, 2024 End: August 31, 2024 Dr. Elen Muñoz DO Attending Provider Act lupe Start: August 18, 2024 End: August 31, 2024 Dr. Elen Muñoz DO Referring Provider Act lupe Start: August 18, 2024 End: August 31, 2024 Dr. Anupam Davis DO Other Provider Active Sta rt: August 18, 2024 End: August 31, 2024 Dr. Jhoana Marc MD Other Provider Active Start : August 18, 2024 End: August 31, 2024 Dr. Aparna Arroyo MD Other Provider Active St art: August 18, 2024 End: August 31, 2024 Hue Orellana NP-C Other Provider Active Sta rt: August 18, 2024 End: August 31, 2024 Lidia Leary NP, CLOTH MERCERIZING SUPERVISOR-C Other Provider Active Start: August 18, 2024 End: August 31, 2024 YAQUELIN Stinson Other Provider Active Start: 2024 End: August 31, 2024 Team Status: Active Member Role Status Dates Dr. Sera Castillo MD Primary Care Provider Active Start: August 19, 2024 Dr. Elen Muñoz DO Admit Provider Active Start: August 19, 2024 Dr. Elen Muñoz DO Attending Provider Act lupe Start: August 19, 2024 Dr. Elen Muñoz DO Other Provider Active Start: August 19, 2024 Team Status: Active Member Role Status Dates Dr. Sera Castillo MD Primary Care Provider Active Start: August 20, 2024 Dr. Elen Muñoz DO Admit Provider Active Start: August 20, 2024 Dr. Domitila Sementi , DO Attending Provider Act lupe Start: August 20, 2024 Dr. Elen Muñoz , DO Other Provider Active Start: August 20, 2024 Team Status: Active Member Role Status Dates Dr. Sera Castillo MD Primary Care Provider Active Start: August 23, 2024 Dr. Elen Muñoz , DO Admit Provider Active Start: August 23, 2024 Dr. Elen Muñoz , DO Attending Provider Act lupe Start: August 23, 2024 Dr. Elen Muñoz , DO Referring Provider Act lupe Start: August 23, 2024 Dr. Elen Muñoz , DO Other Provider Active Start: August 23, 2024 Team Status: Active Member Role Status Dates Dr. Sera Castillo MD Primary Care Provider Active Start: August 24, 2024 Dr. Elen Muñoz , DO Admit Provider Active Start: August 24, 2024 Dr. Elen Muñoz , DO Attending Provider Act lupe Start: August 24, 2024 Dr. Elen Muñoz , DO Referring Provider Act lupe Start: August 24, 2024 Dr. Elen Muñoz , DO Other Provider Active Start: August 24, 2024 Team Status: Active Member Role Status Dates Dr. Sera Castillo MD Primary Care Provider Active Start: August 26, 2024 Dr. Elen Muñoz , DO Admit Provider Active Start: August 26, 2024 Dr. Elen Muñoz , DO Attending Provider Act lupe Start: August 26, 2024 Dr. Elen Muñoz , DO Referring Provider Act lupe Start: August 26, 2024 Dr. Elen Muñoz , DO Other Provider Active Start: August 26, 2024 Team Status: Active Member Role Status Dates Dr. Sera Castillo MD Primary Care Provider Active Start: August 27, 2024 Dr. Elen Muñoz , DO Admit Provider Active Start: August 27, 2024 Dr. Elen Muñoz , DO Attending Provider Act lupe Start: August 27, 2024 Dr. Elen Muñoz , DO Referring Provider Act lupe Start: August 27, 2024 Dr. Elen Muñoz , DO Other Provider Active Start: August 27, 2024 Dr. Anupam Davis , DO Other Provider Active Sta rt: August 27, 2024 Dr. Jhoana Marc MD Other Provider Active Start : August 27, 2024 Dr. Aparna Arroyo MD Other Provider Active St art: August 27, 2024 GUANAKITO Smith Other Provider Active Sta rt: August 27, 2024 GIORGIO Brownlee NPC Other Provider Active Start: August 27, 2024 YAQUELIN Stinson Other Provider Active Start: [facility] 2024 Team Status: Active Member Role Status Dates Dr. Sera Castillo MD Primary Care Provider Active Start: August 31, 2024 Dr. Elen Muñoz DO Admit Provider Active Start: August 31, 2024 Dr. Elen Muñoz DO Attending Provider Act lupe Start: August 31, 2024 Dr. Elen Muñoz DO Referring Provider Act lupe Start: August 31, 2024 Dr. Elen Muñoz DO Other Provider Active Start: August 31, 2024 Dr. Anupam Davis DO Other Provider Active Sta rt: August 31, 2024 Dr. Jhoana Marc MD Other Provider Active Start : August 31, 2024 Dr. Aparna Arroyo MD Other Provider Active St art: August 31, 2024 GUANAKITO Smith Other Provider Active Sta rt: August 31, 2024 GUANAKITO Brownlee NP Other Provider Active Start: August 31, 2024 YAQUELIN Stinson Other Provider Active Start: [facility] 2024 Field Sales Consultant Relationship Specialty Start Date End Date Sera Castillo MD [address] [place] [address] PCP - General Internal Medicine 06/10/18 Toño Gomez MD [address] [id number] Physician Cardiology 09/07/18 Mari Mcclelland APRN.COMMERCIAL FOOD INSTRUCTOR [address] [place], [place] [id number] [facility] Internal Medicine 05/16/24 Chivo Lay RN 09/01/24 Team Status: Active Member Role Status Dates Dr. Sera Castillo MD Primary Care Provider Active Start: August 23, 2024 Dr. Elen Muñoz DO Admit Provider Active Start: August 23, 2024 Dr. Elen Muñoz DO Attending Provider Act lupe Start: August 23, 2024 Dr. Elen Muñoz DO Other Provider Active Start: August 23, 2024 Team Status: Active Member Role Status Dates Dr. Sera Castillo MD Primary Care Provider Active Start: August 24, 2024 Dr. Elen Muñoz DO Admit Provider Active Start: August 24, 2024 Dr. Elen Muñoz DO Attending Provider Act lupe Start: August 24, 2024 Dr. Elen Muñoz DO Other Provider Active Start: August 24, 2024 Team Status: Active Member Role Status Dates Dr. Sera Castillo MD Primary Care Provider Active Start: August 26, 2024 Dr. Elen Muñoz DO Admit Provider Active Start: August 26, 2024 Dr. Elen Muñoz DO Attending Provider Act lupe Start: August 26, 2024 Dr. Elen Muñoz DO Other Provider Active Start: August 26, 2024 Team Status: Active Member Role Status Dates Dr. Sera Castillo MD Primary Care Provider Active Start: August 27, 2024 Dr. Elen Muñoz DO Admit Provider Active Start: August 27, 2024 Dr. Elen Muñoz DO Attending Provider Act lupe Start: August 27, 2024 Dr. Elen Muñoz DO Other Provider Active Start: August 27, 2024 Dr. Anupam Davis , Other Provider Active Sta rt: August 27, 2024 Dr. Jhoana Marc MD Other Provider Active Start : August 27, 2024 Dr. Aparna Arroyo MD Other Provider Active St art: August 27, 2024 Hue Orellana , CLOTH MERCERIZING SUPERVISOR-C Other Provider Active Sta rt: August 27, 2024 Lidia Leary NP, CLOTH MERCERIZING SUPERVISOR-C Other Provider Active Start: August 27, 2024 YAQUELIN Stinson Other Provider Active Start: [facility] 2024 Team Status: Active Member Role Status Dates Dr. Sera Castillo MD Primary Care Provider Active Start: August 31, 2024 Dr. Elen Muñoz , DO Admit Provider Active Start: August 31, 2024 Dr. Elen Muñoz DO Attending Provider Act lupe Start: August 31, 2024 Dr. Elen Muñoz DO Other Provider Active Start: August 31, 2024 Dr. Anupam Davis , Other Provider Active Sta rt: August 31, 2024 Dr. Jhoana Marc MD Other Provider Active Start : August 31, 2024 Dr. Aparna Arroyo MD Other Provider Active St art: August 31, 2024 Hue Orellana NP-C Other Provider Active Sta rt: August 31, 2024 Lidia Leary NP, CLOTH MERCERIZING SUPERVISOR-C Other Provider Active Start: August 31, 2024 YAQUELIN Stinson Other Provider Active Start: [facility] 2024 Team Status: Inactive Member Role Status Dates Dr. Sera Castillo MD Primary Care Provider Active Start: September 13, 2024 End: September 13, 2024 Dr. Sera Castillo MD Referring Provider Active Start: September 13, 2024 End: September 13, 2024 GUANAKITO Etienne Attending Provider Active S tart: September 13, 2024 End: September 13, 2024 Team Status: Inactive Member Role Status Dates Dr. Sera Castillo MD Primary Care Provider Active Start: September 13, 2024 End: September 13, 2024 GUANAKITO Etienne Attending Provider Active S tart: September 13, 2024 End: September 13, 2024 GUANAKITO Etienne Referring Provider Active S tart: September 13, 2024 End: September 13, 2024 Field Sales Consultant Relationship Specialty Start Date End Date Sera Castillo MD [address] [place] [address] PCP - General Internal Medicine 06/10/18 Toño Gomez MD [address] [address] Physician Cardiology 09/07/18 Katie Bruno PA-C [address] [place] [id number] Brickmason Contractor [facility] 05/16/24 08/29/24 Mari Mcclelland APRN.COMMERCIAL FOOD INSTRUCTOR [address] [place] [address] Brickmason Contractor Internal Medicine 05/16/24 She Arshad PA-C [address] [place] [address] Brickmason Contractor [facility] 05/16/24 08/29/24 Chivo Lay, RN 09/01/24 Field Sales Consultant Relationship Specialty Start Date End Date Sera Castillo MD [address] [place] [address] PCP - General Internal Medicine 06/10/18 Tñoo Gomez MD [address] [address] Physician Cardiology 09/07/18 Mari Mcclelland APRN.COMMERCIAL FOOD INSTRUCTOR [address] [place] [address] Brickmason Contractor Internal Medicine 05/16/24 Chivo Lay, RN 09/01/24 Field Sales Consultant Relationship Specialty Start Date End Date Sera Castillo MD [address] [place] [address] PCP - General Internal Medicine 06/10/18 Toño Gomez MD [address] [address] Physician Cardiology 09/07/18 Older, MariNAIMA.COMMERCIAL FOOD INSTRUCTOR [address] [facility] [place] [address] Brickmason Contractor Internal Medicine 05/16/24 Team Status: Inactive Member Role Status Dates Dr. Sera Castillo MD Primary Care Provider Active Start: October 19, 2024 End: October 19, 2024 Dr. Sera Castillo MD Referring Provider Active Start: October 19, 2024 End: October 19, 2024 YAQUELIN Bartlett Attending Provider Active Star t: October 19, 2024 End: October 19, 2024 Team Status: Inactive Member Role Status Dates Dr. Sera Castillo MD Primary Care Provider Active Start: October 19, 2024 End: October 19, 2024 YAQUELIN Bartlett Attending Provider Active Star t: October 19, 2024 End: October 19, 2024 YAQUELIN Bartlett Referring Provider Active Star t: October 19, 2024 End: October 19, 2024 Team Status: Active Member Role Status Dates Dr. Sera Castillo MD Primary Care Provider Active Start: September 18, 2024 GUANAKITO Etienne Attending Provider Active S tart: September 18, 2024 GUANAKITO Etienne Referring Provider Active S tart: September 18, 2024 Team Status: Inactive Member Role Status Dates Dr. Sera Castillo MD Primary Care Provider Active Start: November 04, 2024 End: November 04, 2024 YAQUELIN Bartlett Attending Provider Active Star t: November 04, 2024 End: November 04, 2024 YAQUELIN Bartlett Referring Provider Active Star t: November 04, 2024 End: November 04, 2024 Goals (unrecognized section and content) Goals may be documented in a n alternate section FOR RECORDS PERTAINING TO PATIENTS WHO ARE OR HAVE BEEN ENROLLED IN A CHEMICAL DEPENDENCY/SUBSTANCEABUSE PROGRAM, SOME INFORMATION MAY BE OMITTED. This clinical summary was aggregated from multiple sources. Caution should be exercised in using it in the provision of clinical care. This summary normalizes information from multiple sources, and as a consequence, information in this document may materially change the coding, format and clinical context of patient data. In addition, data may be omitted in some cases. CLINICAL DECISIONS SHOULD BE BASED ON THE PRIMARY CLINICAL RECORDS. [facility]. provides no warranty or guarantee of the accuracy or completeness of information in this document.
== END | disposition home or self-care (01) ==
LOC: CT 13:10
PROVIDERS: PCP Internal Medicine; Referring Provider Physician Assistant; Visit Provider Physician Assistant
DX: I72.8 Aneurysm of other specified arteries (principal)
CPT/HCPCS: 73206; Q9967

== ENCOUNTER → 2024-12-17 | Outpatient (CLI) | payer MEDICARE, OTHER, SELFPAY ==
[2024-12-17 10:21] LABS: Hematocrit 30.3 % (40-54); Hemoglobin 9.2 g/dL (13.0-16.5); Immature Granulocytes Count 0.010 X10^3/uL (0.0-0.0); Mean Corp Hgb Conc 30.4 g/dL (32-36); Mean Corpuscular Volume 84.2 fL (80-94); Mean Platelet Vol. 9.2 fl (6.2-12.0); NRBC Flagged by Analyzer 0 % (0-5); POSITIVE MORPHOLOGY YES; Platelet Count 265 K/mm3 (150-450); RBC Distribution Width CV 24.0 % (11.6-14.6); RBC Distribution Width SD 72.5 fl (35.1-43.9); Red Blood Count 3.60 M/mm3 (4.6-6.2); White Blood Count 4.3 K/mm3 (4.4-11.0)
[2024-12-17 10:22] LABS: Differential Indicated SCAN CRITERIA MET
[2024-12-17 11:08] LABS: Acanthocytes 1+; Anisocytosis 2+; Target Cells 1+; Tear Drop Cell 1+
[2024-12-17 11:09] LABS: Schistocytes 1+
[2024-12-17 11:28] LABS: Anion Gap 7 (5-15); BUN 20 mg/dL (4-19); BUN/Creat Ratio 26.3 RATIO (10-20); Calcium,Total 9.1 mg/dL (7.6-11.0); Carbon Dioxide 26.5 mmol/L (21.0-32.0); Chloride 104 mmol/L (98-108); Glucose 97 mg/dL (70-99); Potassium 4.7 mmol/L (3.3-5.1)
== END | disposition home or self-care (01) ==
LOC: LAB 09:55
PROVIDERS: PCP Internal Medicine; Referring Provider Nurse Practitioner Gerontology; Visit Provider Nurse Practitioner Gerontology
DX: D64.9 Anemia, unspecified (principal); R53.83 Other fatigue
CPT/HCPCS: 36415; 80048; 85025

== ENCOUNTER 2024-12-23 08:35 | Day surgery (SDC) | payer MEDICARE, OTHER, SELFPAY ==
--- NOTE | 2024-12-21 11:18 | PAT.ANESEVAL ---
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 When Was Last Pacemaker Check QUESTION #4 FULL TEXT: You/Your Family Experience fever (hyperthermia) with Anesthesia Last Oral Intake Last Oral intake: Last Oral Intake NPO since Meds taken in AM with sips of water? Meds patient instructed to take am of surgery PONV PONV - woodworking machine setter: PONV - woodworking machine setter Female No 12/21/24 10:30 HX of Motion Sickness No 12/21/24 10:30 HX of N/V After Surgery No 12/21/24 10:30 Non-Smoker Yes 12/21/24 10:30 Duration of Surgery greater No 12/21/24 10:30 than 60 minutes Number of Risk Factors 1 12/21/24 10:30 PONV Score Low Risk 12/21/24 10:30 Height & Weight Height & Weight: Anesthesia: Height & Weight Height 5 ft 6 in 12/17/24 09:09 Respiratory Assessment Respiratory Assessment - woodworking machine setter: Respiratory Tract Infection Hx - woodworking machine setter Hx Respiratory Tract Infection No 12/21/24 10:30 STOP Sleep Apnea STOP Sleep Apnea - woodworking machine setter: STOP Sleep Apnea - woodworking machine setter Hx Hypertension Yes 12/21/24 10:30 Hx Sleep Apnea No 12/21/24 10:30 CPAP No 08/17/24 08:36 BIPAP No 08/17/24 08:36 Do you snore loudly (louder No 12/21/24 10:30 than talking or can be heard Do you often feel tired/ No 12/21/24 10:30 fatigued/ sleepy during daytime? Has anyone observed you stop No 12/21/24 10:30 breathing during sleep? STOP Results Negative 12/21/24 10:30 QUESTION #5 FULL TEXT : Do you snore loudly (louder than talking or can be heard through closed doors)? 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 Specify any problems Hx of Preganancy in last 3 N/A 12/21/24 10:30 Months Nurse Filling Out Transfusion [facility] 12/21/24 10:30 & Questions: Date: 12/21/24 12/21/24 10:30 Time: 10:39 12/21/24 10:30 Patient unable to answer at this time (ie. confused, unrespo /Reproduction History /Reproductive History - woodworking machine setter: /Reproductive Hx- woodworking machine setter Hx Now No 12/21/24 10:30 Gestational Age (in weeks): EDC: Hx Hx Para Hx Section SAB No 12/21/24 10:30 PFSH Medical History (Updated 12/21/24 @ 10:39 by Sarah Hayes) Wears glasses MRSA infection Dementia Anxiety Alcohol use Arthritis Low iron High cholesterol Stroke/cerebrovascular accident Smoker COPD (chronic obstructive pulmonary disease) Hypertension History of stress test History of echocardiogram Cardiology follow-up encounter Depression Dementia with behavioral disturbance Wernickes encephalopathy Cognitive dysfunction History of depression History of alcoholism Diverticulosis GERD (gastroesophageal reflux disease) HTN (hypertension) Hyperlipidemia Tobacco abuse Carotid stenosis Prothrombin gene mutation Aortic mural thrombus Nonobstructive atherosclerosis of coronary artery Thoracic aortic aneurysm (TAA) 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) Alcoholism Major depression COPD (chronic obstructive pulmonary disease) AAA (abdominal aortic aneurysm) without rupture Home Medications ?Medication ?Instructions ?Recorded ?Last Taken ?Type acetaminophen 325 mg tablet 650 mg (2 x 325 mg) PO Q6H PRN PRN 08/30/24 Unknown Rx Pain Score 1-10 #1 TAB atorvastatin 80 mg tablet 80 mg PO QHS #30 tabs 08/30/24 Unknown Rx calcium carb 800 mg-magnes hydrox 15 ml PO Q6H PRN PRN heartburn 08/30/24 Unknown Rx 270 mg-simeth 80 mg/10 mL oral #355 mL susp (Mylanta Tonight) nifedipine 30 mg tablet,extended 30 mg PO DAILY BP #30 tabs 08/30/24 Unknown Rx release 24 hr ramipril 10 mg capsule 10 mg PO DAILY BP #30 caps 08/30/24 Unknown Rx sertraline 50 mg tablet 50 mg PO DAILY #30 tabs 08/30/24 Unknown Rx aspirin 81 mg chewable tablet 81 mg PO DAILY #90 tabs 11/10/24 12/18/24 Rx clopidogrel 75 mg tablet 75 mg PO DAILY #90 tabs 11/10/24 12/18/24 Rx Allergy/AdvReac Type Severity Reaction Status Date / Time latex Allergy Rash Verified 12/21/24 10:28 Family History Mother CVA (cerebral vascular accident) Surgical History (Updated 12/21/24 @ 10:39 by Sarah Hayes) History of cardiac catheterization History of total right hip replacement History of left heart catheterization (09/11/18) Social History household members: spouse number of children: 2 current occupational status: retired Smoking Status: Current every day smoker tobacco type: cigarettes alcohol intake: former details: He denies but, the last progress note from [facility] from August of 2023 says yes substance use type: does not use caffeine: Yes Type: coffee Audit: Pertinent Findings Pertinent Findings EKG Perinent findings: August 19, 2024. Normal sinus rhythm with sinus arrhythmia. Left anterior fascicular block. Stress test pertinent findings: 04/30/2021. EF is 76%. No areas of reversibility noted to suggest ischemia. No previous infarct. Echo (EF%) pertinent findings: August 17, 2024. EF of 65%. PASP is 35 mmHg. No aortic stenosis. Heart catheterization pertinent findings: 10/01/2018. EF of 55%. The mid RCA has a eccentric 40 to 50% stenosis and diffuse distal disease. Consult pertinent findings: 12/17/2024. Rob CALABRESE. 1. Nonobstructive atherosclerosis of coronary [id number]-[id number] to moderate disease in the right coronary artery. Follow-up stress test in 2020 was negative for ischemia. 2. Abdominal aortic aneurysm without rupture?acute-infrarenal AAA is 4.8 x 4.9 cm. Suprarenal AAA is 3.09 x 3.02 cm. Currently stable. Continue with blood pressure and heart rate control. 3. Hypertension?history of. Current blood pressure is low at 92/50. Continue nifedipine 30 mg daily. Hold his ramipril. 4. Anemia-currently being worked up for anemia. Additional pertinent findings: 14-day event monitor. 09/18/2024. Average heart rate is 68 bpm. Ventricular ectopic beats with a burden of less than 1%. Supraventricular ectopic beats with a burden of 4%. There were 0 patient triggers. Recommendation Anesthesia Recommendation Anesthesia recommendation: OPTIMIZED for anesthesia
[2024-12-23] VITALS (8 sets, daily range): BP systolic 91–130; BP diastolic 46–56; PULSE 47–70; RESP 16; TEMP 36.1–36.6; O2SAT 95–100; BMI 19.8
[2024-12-23] MEDS: Lactated Ringers 1,000 ML 15 ML IV (09:19)
--- NOTE | 2024-12-23 09:30 | EGD_PTH ---
PATIENT: LEO SINCLAIR LOC: EN U#:[id number] AGE/SX: 79/M ROOM: RE12/23/[address]: Dr. Percy Auguste DO : 1945 BED: DIS: 12/23/2024 SPEC #: [id number] RECD: 12/23/24 12:52 STATUS: STEVE REMary #: [id number] SRIRAM: 12/23/24 09:[address]: Percy Auguste DEPT: SURGICAL PATHOLOGY RECD BY: Alona Escamilla ENTERED: 12/23/24 14:19 SP TYPE: EGD BIOPSY GEOVANI DR: Dr. Gardenia Braun MD Tissues: A - Duodenum, NOS B - Gastric mucous membrane Procedures: Immunohistochemical Stains Surgery Specimen Level IV HEADER OPERATION: EGD, Biopsy PRE-OP DIAGNOSIS: Iron, Def. Anemia, + Fecal occult blood test, acute anemia TISSUE SUBMITTED: Duodenum Biopsy, Gastric Body Biopsy H&H MICROSCOPIC DIAGNOSIS A. Duodenum, biopsy: - Normal villous morphology with Diamond gland hyperplasia. - Negative for increased intraepithelial lymphocytes. B. Gastric body, biopsy: - Oxyntic mucosa with no specific pathologic change. - IHC negative for H.pylori organisms. MICROSCOPIC DESCRIPTION Slides are reviewed. All matched controls reacted appropriately. These tests were developed and their performance characteristics determined by [facility]. They may not have been cleared or approved by the U.S. Food and Drug Administration. The FDA has determined that such clearance or approval is not necessary.? The above immunohistochemical/dualISH?markers are reviewed by the Pathologist. GROSS DESCRIPTION Received in 2 formalin containers labeled with the patient's name and date of . Designated as: A. Duodenum BX are 2 coronado tissue fragments, 0.3 cm each. Entirely submitted in 1 cassette. B. Gastric body BX for histo and H. pylori are 3 coronado tissue fragments, <0.1 cm to 0.6 cm. Entirely submitted in 1 cassette. Smallest fragment may not survive processing. CO 12/23/2024 CPT: [id number]
--- NOTE | 2024-12-23 09:45 | PCM.PRE.AN2 ---
ASA Classification* ASA Classification ASA Classification: 3 Assessment & Plan Anesthesia* Anesthesia Assessment Anesthesia Assessment: Discussed sedation and/or anesthesia options, risks, benefits, and alternatives with patient/parents/legal guardian/POA. Questions invited. The patient/parents/legal guardian/POA seems to understand and agrees to proceed with anesthesia plan. Reviewed the physical assessment, medical history, allergy history and patient home medications list prior to surgery/procedure/anesthetic and documented any changes. Performed airway and anesthesia risk assessments. Anesthesia Type Anesthesia Type: MAC History Source History Obtained from:: Patient, Chart and - (Daughter) Anesthesia Focused Assessment* Temperature: 97.8 F Pulse Rate: 51 Blood Pressure: 103/56 Respiratory Rate: 16 Pulse Ox: 100 Oxygen Delivery Method: Room Air Airway Assessment Mouth opens: >3 cm Mallampati Score: II Teeth Condition: Intact Neck Range of motion (ROM): Limited ROM Labs Anesthesia Preop lab: CBC WBC 4.3 K/mm3 (4.4-11.0) L 12/17/24 09:57 12/17/24 RBC 3.60 M/mm3 (4.6-6.2) L 12/17/24 09:57 12/17/24 Hgb 9.2 g/dL (13.0-16.5) L 12/17/24 09:57 12/17/24 Hct 30.3 % (40-54) L 12/17/24 09:57 12/17/24 Plt Count 265 K/mm3 (150-450) 12/17/24 09:57 12/17/24 CHEMISTRY Potassium 4.7 mmol/L (3.3-5.1) 12/17/24 09:57 12/17/24 Sodium 138 mmol/L (133-145) 12/17/24 09:57 12/17/24 Magnesium 2.0 mg/dL (1.5-2.2) 08/27/24 05:50 08/27/24 Phosphorus 3.9 mg/dL (2.7-4.5) 08/19/24 05:34 08/19/24 BUN 20 mg/dL (4-19) H 12/17/24 09:57 12/17/24 Creatinine 0.76 mg/dL (0.70-1.20) 12/17/24 09:57 12/17/24 Glucose 97 mg/dL (70-99) 12/17/24 09:57 12/17/24 TSH 1.900 uIU/mL (0.300-4.200) 08/19/24 05:34 08/19/24 COAG PT 13.6 SECONDS (11.7-14.9) 08/17/24 06:12 08/17/24 Pre-Assessment Diagnosis/Proposed Procedure Planned Operative Procedure(s): EGD Anesthesia History 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 When Was Last Pacemaker Check QUESTION #4 FULL TEXT: You/Your Family Experience fever (hyperthermia) with Anesthesia Last Oral Intake Last Oral intake: Last Oral Intake NPO since 18:30 12/23/24 09:16 Meds taken in AM with sips of No 12/23/24 09:16 water? 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 - deli manager Female No 12/21/24 10:30 HX of Motion Sickness No 12/21/24 10:30 HX of N/V After Surgery No 12/21/24 10:30 Non-Smoker Yes 12/21/24 10:30 Duration of Surgery greater No 12/21/24 10:30 than 60 minutes Number of Risk Factors 1 12/21/24 10:30 PONV Score Low Risk 12/21/24 10:30 Height & Weight Height & Weight: Anesthesia: Height & Weight Height 5 ft 6 in 12/23/24 09:16 Weight: 55.7 kg 12/23/24 09:16 Body Mass Index (BMI) 19.8 12/23/24 09:16 Respiratory Assessment Respiratory Assessment - deli manager: Respiratory Tract Infection Hx - deli manager Hx Respiratory Tract Infection No 12/21/24 10:30 STOP Sleep Apnea STOP Sleep Apnea - deli manager: STOP Sleep Apnea - deli manager Hx Hypertension Yes 12/21/24 10:30 Hx Sleep Apnea No 12/21/24 10:30 CPAP No 08/17/24 08:36 BIPAP No 08/17/24 08:36 Do you snore loudly (louder No 12/21/24 10:30 than talking or can be heard Do you often feel tired/ No 12/21/24 10:30 fatigued/ sleepy during daytime? Has anyone observed you stop No 12/21/24 10:30 breathing during sleep? STOP Results Negative 12/21/24 10:30 QUESTION #5 FULL TEXT : Do you snore loudly (louder than talking or can be heard through closed doors)? 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 Specify any problems Hx of Preganancy in last 3 N/A 12/21/24 10:30 Months Nurse Filling Out Transfusion [facility] 12/21/24 10:30 & Questions: Date: 12/21/24 12/21/24 10:30 Time: 10:39 12/21/24 10:30 Patient unable to answer at this time (ie. confused, unrespo /Reproduction History /Reproductive History - deli manager: /Reproductive Hx- deli manager Hx Now No 12/21/24 10:30 Gestational Age (in weeks): EDC: Hx Hx Para Hx Section SAB No 12/21/24 10:30 Active Medications Active Medications: Current Medications Generic Name Dose Route Start Last Admin Trade Name Freq PRN Reason Stop Dose Admin Lactated Ringer's 1,000 mls @ 15 mls/hr 12/23/24 08:45 12/23/24 09:19 IV 15 mls/hr .Q48H JUAREZ Administration PFSH Medical History Wears glasses MRSA infection Dementia Anxiety Alcohol use Arthritis Low iron High cholesterol Stroke/cerebrovascular accident Smoker COPD (chronic obstructive pulmonary disease) Hypertension History of stress test History of echocardiogram Cardiology follow-up encounter Depression Dementia with behavioral disturbance Wernickes encephalopathy Cognitive dysfunction History of depression History of alcoholism Diverticulosis GERD (gastroesophageal reflux disease) HTN (hypertension) Hyperlipidemia Tobacco abuse Carotid stenosis Prothrombin gene mutation Aortic mural thrombus Nonobstructive atherosclerosis of coronary artery Thoracic aortic aneurysm (TAA) 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) Alcoholism Major depression COPD (chronic obstructive pulmonary disease) AAA (abdominal aortic aneurysm) without rupture Home Medications ?Medication ?Instructions ?Recorded ?Last Taken ?Type acetaminophen 325 mg tablet 650 mg (2 x 325 mg) PO Q6H PRN PRN 08/30/24 Unknown Rx Pain Score 1-10 #1 TAB atorvastatin 80 mg tablet 80 mg PO QHS #30 tabs 08/30/24 Unknown Rx calcium carb 800 mg-magnes hydrox 15 ml PO Q6H PRN PRN heartburn 08/30/24 Unknown Rx 270 mg-simeth 80 mg/10 mL oral #355 mL susp (Mylanta Tonight) nifedipine 30 mg tablet,extended 30 mg PO DAILY BP #30 tabs 08/30/24 Unknown Rx release 24 hr ramipril 10 mg capsule 10 mg PO DAILY BP #30 caps 08/30/24 Unknown Rx sertraline 50 mg tablet 50 mg PO DAILY #30 tabs 08/30/24 Unknown Rx aspirin 81 mg chewable tablet 81 mg PO DAILY #90 tabs 11/10/24 12/18/24 Rx clopidogrel 75 mg tablet 75 mg PO DAILY #90 tabs 11/10/24 12/18/24 Rx Allergy/AdvReac Type Severity Reaction Status Date / Time latex Allergy Rash Verified 12/23/24 09:15 Family History Mother CVA (cerebral vascular accident) Surgical History History of cardiac catheterization History of total right hip replacement History of left heart catheterization (09/11/18) Social History household members: spouse number of children: 2 current occupational status: retired Smoking Status: Current every day smoker tobacco type: cigarettes alcohol intake: former details: He denies but, the last progress note from [facility] from August of 2023 says yes substance use type: does not use caffeine: Yes Type: coffee Review of Systems (Anesthesia) ROS Narrative System reviewed and no additional complaints, except as documented.
--- NOTE | 2024-12-23 10:36 | PCM.HP.STD ---
HPI - General General Date of Admission: 12/23/24 Date of Service: 12/23/24 Chief Complaint: Anemia HPI Narrative TESFAYE SINCLAIR, is a 79 M who presents with Chief Complaint: anemia PMHx of CVA in Jun 2024, iron def anemia, prothrombin gene mutation, AAA, TAA Referred from hematology for drop in hgb. Pt has had chronically moderately low hgb since 2021 and has been seeing hematology for this. Recent hgb from 11.29.24 was 6.5. He received blood transfusion from infusion department about one week ago. He had an iron infusion yesterday CBC has not yet be repeated. He endorses fatigue prior to blood transfusion. He thinks he may of had black stools last week. He typically has constipation. He is not taking iron supplement. He denies abd pain, heartburn, nausea, or diarrhea. Last colonoscopy was over 10 years ago and he has never had an EGD. He does not take NSAIDs. Pt also having difficulty swallowing since CVA in Jun 2024. He endorses eating slowly, chewing his food well and eating small bites. He has had one episode of choking since being home. [facility] Medical History Wears glasses MRSA infection Dementia Anxiety Alcohol use Arthritis Low iron High cholesterol Stroke/cerebrovascular accident Smoker COPD (chronic obstructive pulmonary disease) Hypertension History of stress test History of echocardiogram Cardiology follow-up encounter Depression Dementia with behavioral disturbance Wernickes encephalopathy Cognitive dysfunction History of depression History of alcoholism Diverticulosis GERD (gastroesophageal reflux disease) HTN (hypertension) Hyperlipidemia Tobacco abuse Carotid stenosis Prothrombin gene mutation Aortic mural thrombus Nonobstructive atherosclerosis of coronary artery Thoracic aortic aneurysm (TAA) 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) Alcoholism Major depression COPD (chronic obstructive pulmonary disease) AAA (abdominal aortic aneurysm) without rupture Home Medications ?Medication ?Instructions ?Recorded ?Last Taken ?Type acetaminophen 325 mg tablet 650 mg (2 x 325 mg) PO Q6H PRN PRN 08/30/24 Unknown Rx Pain Score 1-10 #1 TAB atorvastatin 80 mg tablet 80 mg PO QHS #30 tabs 08/30/24 Unknown Rx calcium carb 800 mg-magnes hydrox 15 ml PO Q6H PRN PRN heartburn 08/30/24 Unknown Rx 270 mg-simeth 80 mg/10 mL oral #355 mL susp (Mylanta Tonight) nifedipine 30 mg tablet,extended 30 mg PO DAILY BP #30 tabs 08/30/24 Unknown Rx release 24 hr ramipril 10 mg capsule 10 mg PO DAILY BP #30 caps 08/30/24 Unknown Rx sertraline 50 mg tablet 50 mg PO DAILY #30 tabs 08/30/24 Unknown Rx aspirin 81 mg chewable tablet 81 mg PO DAILY #90 tabs 11/10/24 12/18/24 Rx clopidogrel 75 mg tablet 75 mg PO DAILY #90 tabs 11/10/24 12/18/24 Rx Allergy/AdvReac Type Severity Reaction Status Date / Time latex Allergy Rash Verified 12/23/24 09:15 Family History Mother CVA (cerebral vascular accident) Surgical History History of cardiac catheterization History of total right hip replacement History of left heart catheterization (09/11/18) Social History household members: spouse number of children: 2 current occupational status: retired Smoking Status: Current every day smoker tobacco type: cigarettes alcohol intake: former details: He denies but, the last progress note from [facility] from August of 2023 says yes substance use type: does not use caffeine: Yes Type: coffee ROS Constitutional Constitutional: Denies fatigue, fever(s), poor appetite, weight gain or weight loss Gastrointestinal Gastrointestinal: Denies belching, bloating, change in bowel habits, change in stool character, chewing difficulty, coffee ground emesis, constipation, cramping, diarrhea, dyspepsia, dysphagia, early satiety, excessive flatus, fecal incontinence, heartburn, hematemesis, hematochezia, hemorrhoids, loose stools, melena, nausea, odynophagia, rectal bleeding, tenesmus, vomiting or weight changes Vital Signs Vital Signs Vital Signs: 12/23/24 09:16 12/23/24 09:16 12/23/24 09:51 Temperature 97.8 F 97.8 F Temperature Source Temporal Pulse Rate 51 L 51 L Respiratory Rate 16 16 Respiratory Pattern Normal Blood Pressure 103/56 L 103/56 L Blood Pressure Mean 71 Blood Pressure Source Monitor Blood Pressure Position Sitting Blood Pressure Location Left Arm Pulse Ox 100 100 Oxygen Delivery Method Room Air Room Air Weight Weight: 122 lb 12.76 oz Body Mass Index (BMI) 19.8 Physical Exam Const alert, oriented x3, no apparent distress and healthy appearing General Appearance: cooperative GI normal to inspection, nondistended, normoactive bowel sounds, soft to palpation, non-tender and non-distended Percussion: normal to percussion Rectal Exam: deferred Assessment & Plan Assessment/Plan (1) Iron (Fe) deficiency anemia: QUALIFIERS: Iron deficiency anemia type: chronic blood loss Qualified Code(s): D50.0 - Iron deficiency anemia secondary to blood loss (chronic) (2) Positive fecal occult blood test: (3) Anemia: QUALIFIERS: Anemia type: unspecified type Qualified Code(s): D64.9 - Anemia, unspecified PLAN: Assessment and Plan Assessment and Plan (1) Iron (Fe) deficiency anemia: Status: Acute Qualifiers: Iron deficiency anemia type: chronic blood loss Qualified Code(s): D50.0 - Iron deficiency anemia secondary to blood loss (chronic) Comment: Labs on 11/29/2024 showed Iron deficiency anemia. Ferritin 9, Iron 12, Iron sat 3%. Plan: Tesfaye is an 79 yo male pt with PMHx of iron deficiency anemia, CVA (2024), AAA and prothrombin gene mutation. Pt has had chronically low hgb since 2021 per trish review however labs from 6.23.35 showing a drop in his hgb. Hgb was 6.5. He underwent outpatient blood transfusion. He also had an iron transfusion this week. He endorses feeling fatigued and having black stools last week. He is feeling better. He will need to undergo EGD to evaluate for upper GI bleeding. He also may need colonoscopy but pt would prefer to have EGD first and if needed undergo colonoscopy in the future. Pt was scheduled for this. -EGD -Consider colonoscopy if no etiology of blood loss found -f/u after procedure (2) Positive fecal occult blood test: Status: Acute (3) Anemia: Status: Acute Qualifiers: Anemia type: unspecified type Qualified Code(s): D64.9 - Anemia, unspecified Comment: Had positive stool for occult blood.
--- NOTE | 2024-12-23 11:07 | OP.CCLET_ITS ---
12/23/2024 Gardenia Braun [address] [place] [address] Re : Upper GI endoscopy procedure for Tesfaye Angelo Dear Dr. Braun This procedure was performed on December. My impressions and recommendations are as follows: Impressions : - Normal esophagus. - Small hiatal hernia. - Congestive gastropathy. Biopsied. - Erythematous duodenopathy. Biopsied. Recommendations : - Discharge patient to home. - Resume previous diet. - Continue present medications. - Await pathology results. My findings are described in the full procedure note, which is enclosed. If I can be of further assistance, please feel free to contact me at . Sincerely, Percy Auguste, 12/23/2024 11:06:40 AM This report has been signed electronically.
--- NOTE | 2024-12-23 11:07 | OP.EGD_ITS ---
Patient Name: Tesfaye Angelo Procedure Date: 12/23/2024 10:46 AM Date of : 1945 Age: 79 Procedure: Upper GI endoscopy Indications: Iron deficiency anemia Providers: Percy Auguste DO Referring MD: Gardenia Braun Medicines: Monitored Anesthesia Care Patient Profile: This is an 79 year old male. Refer to note in patient chart for documentation of history and physical. Patient has symptoms. Complications: No immediate complications. Procedure: Pre-Anesthesia Assessment: - Prior to the procedure, a History and Physical was performed, and patient medications and allergies were reviewed. The patient is competent. The risks and benefits of the procedure and the sedation options and risks were discussed with the patient. All questions were answered and informed consent was obtained. Patient identification and proposed procedure were verified by the physician in the pre-procedure area. Mental Status Examination: alert and oriented. Airway Examination: normal oropharyngeal airway and neck mobility. Respiratory Examination: clear to auscultation. CV Examination: normal. Prophylactic Antibiotics: The patient does not require prophylactic antibiotics. Prior Anticoagulants: The patient has taken no anticoagulant or antiplatelet agents. ASA Grade Assessment: II - A patient with mild systemic disease. After reviewing the risks and benefits, the patient was deemed in satisfactory condition to undergo the procedure. The anesthesia plan was to use monitored anesthesia care (MAC). Immediately prior to administration of medications, the patient was re-assessed for adequacy to receive sedatives. The heart rate, respiratory rate, oxygen saturations, blood pressure, adequacy of pulmonary ventilation, and response to care were monitored throughout the procedure. The physical status of the patient was re-assessed after the procedure. After obtaining informed consent, the endoscope was passed under direct vision. Throughout the procedure, the patient's blood pressure, pulse, and oxygen saturations were monitored continuously. The Endoscope was introduced through the mouth, and advanced to the fourth part of the duodenum. Small bowel enteroscopy was deemed necessary. The upper GI endoscopy was accomplished without difficulty. The patient tolerated the procedure well. Scope In: 10:56:32 AM Scope Out: 11:00:42 AM Total Procedure Duration Time 0 hours 4 minutes 10 seconds Findings: The examined esophagus was normal. A small hiatal hernia was present. Diffuse mildly congested mucosa was found in the entire examined stomach. Biopsies were taken with a cold forceps for histology. Verification of patient identification for the specimen was done. Estimated blood loss was minimal. Biopsies were taken with a cold forceps for Helicobacter pylori testing. Verification of patient identification for the specimen was done. Estimated blood loss was minimal. Patchy mildly erythematous mucosa without active bleeding and with no stigmata of bleeding was found in the entire duodenum. Biopsies were taken with a cold forceps for histology. Verification of patient identification for the specimen was done. Estimated blood loss was minimal. Impression: - Normal esophagus. - Small hiatal hernia. - Congestive gastropathy. Biopsied. - Erythematous duodenopathy. Biopsied. Recommendation: - Discharge patient to home. - Resume previous diet. - Continue present medications. - Await pathology results. Procedure Code(s): --- Professional --- 56113, Small intestinal endoscopy, enteroscopy beyond second portion of duodenum, not including ileum; with biopsy, single or multiple CPT copyright 2021 [employer]. All rights reserved. The codes documented in this report are preliminary and upon clothing man review may be revised to meet current compliance requirements. Percy Auguste DO 12/23/2024 11:06:40 AM This report has been signed electronically. Number of Addenda: 0 Note Initiated On: 12/23/2024 10:46 AM
--- NOTE | 2024-12-23 11:14 | PCM.POST.ANE ---
Anesthesia: Postop Eval I Current Vital Signs Temperature: 97.5 F Pulse Rate: 70 Blood Pressure: 92/52 Respiratory Rate: 16 Pulse Ox: 98 Oxygen Delivery Method: Room Air Assessment Airway patent: Yes Spontaneous unlabored respirations: Yes Mental status: Awake and Calm nausea: No Vomiting: No Anesthesia Complication: No Fluid Hydration Crystalloid volume administer (ml): 300 Total IV fluid infused: 300 Progress Note Anesthesia document: Postop Eval 1 completed: Yes
--- NOTE | 2024-12-23 16:22 | PCM.POSTANE2 ---
Anesthesia Postop Eval I Sum Postop Eval Completion status Anesthesia document: Postop Eval 1 completed: Yes Anesthesia Postop Eval I Summary Anesthesia Postop Eval I Summary: Anesthesia Postop Eval I: Assessment Summary Airway patent Yes 12/23/24 11:15 [email or web address] Spontaneous unlabored Yes 12/23/24 11:15 [email or web address] respirations Mental status Awake,Calm 12/23/24 11:15 [email or web address] nausea No 12/23/24 11:15 [email or web address] Vomiting No 12/23/24 11:15 [email or web address] Anesthesia Postop Eval I: Fluid Summary Crystalloid volume administer 300 12/23/24 11:15 [email or web address] (ml) Colloids volume administered ( ml) Blood Product volume administered (ml) Total IV fluid infused 300 12/23/24 11:15 [email or web address] Anesthesia Postop Eval I: Summary Notes Anesthesia Complication No 12/23/24 11:15 [email or web address] Anesthesia Complication Comment: Post-operative progress note Anesthesia: Postop Eval II Evaluation Mental status: Awake and Calm Pain Level: 1 nausea: No Vomiting: No
== END 2024-12-23 11:47 | disposition home or self-care (01) ==
LOC: EN 08:36 → AC 08:36
PROVIDERS: PCP Internal Medicine; Referring Provider Internal Medicine; Visit Provider Internal Medicine Gastroenterology
PROC: 0DJ08ZZ Inspection of Upper Intestinal Tract, Via Natural or Artificial Opening Endoscopic (ICD-10-PCS; CPT 43235; principal; 2024-12-23 09:25)
DX: D50.0 Iron deficiency anemia secondary to blood loss (chronic) (principal); F03.90 Unspecified dementia, unspecified severity, without behavioral disturbance, psychotic disturbance, mood disturbance, and anxiety; J44.9 Chronic obstructive pulmonary disease, unspecified; K31.89 Other diseases of stomach and duodenum; K44.9 Diaphragmatic hernia without obstruction or gangrene; E78.00 Pure hypercholesterolemia, unspecified; I10 Essential (primary) hypertension; F17.210 Nicotine dependence, cigarettes, uncomplicated; I25.10 Atherosclerotic heart disease of native coronary artery without angina pectoris; Z79.82 Long term (current) use of aspirin; Z79.899 Other long term (current) drug therapy
CPT/HCPCS: 44361; 88305; 88342; J2405

== ENCOUNTER → 2025-03-04 | Outpatient (CLI) | payer MEDICARE, OTHER, SELFPAY | END | disposition home or self-care (01) | PROVIDERS: PCP Internal Medicine; Referring Provider Internal Medicine Medical Oncology; Visit Provider Internal Medicine Medical Oncology | DX: D50.9 Iron deficiency anemia, unspecified (principal); R19.5 Other fecal abnormalities | CPT/HCPCS: 82274 ==